=== PATIENT | female | born 1950 | race Two or more races ===

== ENCOUNTER 2023-01-15 16:43 | Inpatient (IN) | payer OTHER, SELFPAY ==
--- NOTE | ~2023-01-15 | XR_ITS ---
EXAMINATION: XR ABDOMEN KUB CLINICAL INDICATION: Rule out obstruction COMPARISON: None available. TECHNIQUE: AP portable view of the abdomen. FINDINGS: Exam is limited due to patient positioning. Nonobstructive bowel gas pattern. No free air. No suspicious calcifications. Degenerative changes of the lower lumbar spine. XR/XR KUB IMPRESSION: Nonobstructive bowel gas pattern.
--- NOTE | ~2023-01-15 | CT_ITS ---
EXAMINATION: CT HEAD WITHOUT CONTRAST CLINICAL INFORMATION: Fall, headache. COMPARISON: CT brain 11/25/2020. TECHNIQUE: Contiguous axial imaging was performed from the skull base to vertex without intravenous administration of contrast. This CT examination was performed using dose optimization techniques as appropriate, variously including the following: *Automated exposure control *Adjustment of mA and/or kV according to patient size (this includes techniques or standardized protocols for targeted exams where dose is matched to indication/reason for exam; i.e. extremities or head) *Use of iterative reconstruction technique DLP: 1162 mGy-cm FINDINGS: There is a moderate hypodensity left occipital lobe consistent with encephalomalacia. There is no acute infarction evolution. There is no acute intra-axial, extra-axial bleed, masses or midline shift. There is mild periventricular hypodensity in both cerebral hemispheres without mass effect. The lateral ventricles are symmetrical but enlarged. Bone windows reveal no calvarial abnormality. No scalp soft tissue abnormality. Bilateral paranasal sinuses and mastoid air cells are well-aerated. The optic globe, optic nerve and the bony orbits are normal. CT/CT head/brain wo IV con IMPRESSION: 1. No acute intracranial process seen. 2. 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 3. Mild cerebral volume loss with chronic small vessel ischemic changes in both cerebral hemispheres.
--- NOTE | ~2023-01-15 | XR_ITS ---
EXAMINATION: XR ABDOMEN KUB CLINICAL INDICATION: Quadrant bowel obstruction. COMPARISON: None available. TECHNIQUE: AP view of the abdomen and pelvis. FINDINGS: There is a large stool burden, suggesting possible constipation. No obstruction or ileus is seen. Gas and stool are identified to the level of the rectum. No free intraperitoneal air is seen. There are no abnormal soft tissue calcifications. There is no acute osseous abnormality. Multiple pelvic phleboliths are seen. There are incompletely characterized degenerative changes of the lower thoracic spine. XR/XR KUB IMPRESSION: There is a moderately large stool burden, suggesting possible constipation. No obstruction or ileus is seen. No free intraperitoneal air noted.
--- OUTSIDE RECORDS SUMMARY | 2023-01-15 16:46 | XMS_ITS | Continuity of Care Document ---
Author Name Unknown Organization [facility] Address [address] [place] [address]- Care Team Providers Care Wet Trimmer Name Role Phone Bety KNIGHT, Ameena Primary Care Physician ( [phone] Encounter [facility] Date(s): 12/24/21 - 01/23/[address] [id number] Allergies, Adverse Reactions, Alerts Substance Reaction Severity Status acetaminophen Active aspirin rash Active tetanus toxoid SWELLING Active Motrin Active Losartan Potassium 1 spitting christophe blood Active penicillin ITCHING, RASH Active Benadryl RASH, VOMITING Active Egg Allergy TONGUE SWELLS egg Unknown Active Latex SWELLING Active Nuts RASH Active 1spitting christophe blood Immunizations Given and Recorded Vaccine Date Status Refusal Reason pneumococcal 23-valent vaccine 09/19/16 Given pneumococcal 13-valent vaccine 1 02/22/16 Given influenza virus vaccine, inactivated 2 02/22/16 Gi camron Pneumococcal Poly (PPV23) (oldterm) 3 08/10/09 Giv en 1Result Comment: [02/22/2016] ORDERED BY AMEENA ALBERT MD 2Result Comment: [02/22/2016] ordered by Bharat Albert MD 3Admin Note: PT REFUSED VACCINE. hAS NEVER RECIEVED ANY OTHER VACCINE IN HER LIFE EXCEPT FOR A TETANUS FOR WHICH SHE IMMEDIATELY SWE Medications albuterol CFC free 90 mcg/inh inhalation aerosol 2, puffs, Inhalation, Every 6 hours, PRN, # 18 Gm, Refills 3, Tot. Refills 3, Maintenance, 11/14/2214:05:00 EDT, Aerosol, Route to Pharmacy Electronically, [id number]_[id number], [facility], 135,cm, 10/11/21 9:20:00 EDT, Height Start Date: 11/14/21 Status: Ordered atorvastatin 20 mg oral tablet 1 tablet = 20 mg, By Mouth, Daily, Patient will need [employer] pill dispenser, # 30 tablet, 11 Refills, Maintenance, 10/02/21 13:46:00 EDT, Tablet, [facility], Partial fill upon patient request if the prescription is for a schedule II opioid d... Start Date: 10/02/21 Status: Ordered Calcium 600 +D oral tablet 1 tablet, By Mouth, 2 times a day, calcium 600 and Vit D 400 units, # 90 tablet, 11 Refills, Maintenance, 10/11/21 10:03:00 EDT, [facility], Partial fill upon patient request if the prescription is for a schedule II opioid drug., 1 tablet By M... Start Date: 10/11/21 Status: Ordered clopidogrel 75 mg oral tablet 1, tablet, By Mouth, Daily, ASA allergy Patient will need [employer] pill dispenser, # 30 tablet, Refills 11, Tot. Refills 11, Maintenance, 10/02/21 13:46:00 EDT, Route to Pharmacy Electronically, [facility], 135, cm, 09/29/21 10:30:00 EDT, He... Start Date: 10/02/21 Status: Ordered Freestyle Lite Lancets See Instructions, # 100 each, Refills 11, Tot. Refills 11, Maintenance, use as directed for Type 2 Diabetes Mellitus, E11.9, Test BS tid., 10/02/21 13:47:00 EDT, Compound, 135, cm, 09/29/21 10:30:00 EDT, Height Start Date: 10/02/21 Stop Date: 09/27/22 Status: Ordered Freestyle Lite Monitor See Instructions, # 1 each, Refills 0, Tot. Refills 0, Maintenance, use as directed for Type 2 Diabetes Mellitus, E11.9, Test BS tid., 07/05/21 12:45:00 EST, Compound, 135, cm, 09/21/20 11:34:00 EDT,Height Start Date: 07/05/21 Stop Date: 08/04/21 Status: Ordered Freestyle Lite Test Strips See Instructions, # 100 each, Refills 11, Tot. Refills 11, Maintenance, use as directed for Type 2 Diabetes Mellitus, E11.9, Test BS tid., 10/02/21 13:47:00 EDT, Compound, 135, cm, 09/29/21 10:30:00 EDT, Height Start Date: 10/02/21 Stop Date: 09/27/22 Status: Ordered gabapentin 100 mg oral capsule 2, capsule, By Mouth, Daily in AM, # 60 capsule, Refills 0, Maintenance, 12/28/21 12:43:00 EDT, Route to Pharmacy Electronically, [facility], 135, cm, 10/11/21 9:20:00 EDT, Height Start Date: 12/28/21 Status: Ordered Lantus Solostar Pen 100 units/mL subcutaneous solution = 20 units, Subcutaneous Injection, Daily, daily in the morning Patient will need [employer] pill dispenser, # 10 mL, 11 Refills, Maintenance, 10/02/21 13:47:00 EDT, Solution, [facility], 135,cm, 09/29/21 10:30:00 EDT, Height Start Date: 10/02/21 Stop Date: 09/27/22 Status: Ordered lisinopril 20 mg oral tablet 1, tablet, By Mouth, Daily, Patient will need [employer] pill dispenser, # 28 tablet, Refills 11, Tot. Refills 11, Maintenance, 10/02/21 13:48:00 EDT, Route to Pharmacy Electronically, [facility], 135, cm, 09/29/21 10:30:00 EDT, Height Start Date: 10/02/21 Status: Ordered Pen [place], 30 G x 8 mm BD Ultra Fine II See Instructions, # 30 each, Refills 11, Tot. Refills 11, Maintenance, to use with lantus daily, 10/02/21 13:47:00 EDT, Compound, 135, cm, 09/29/21 10:30:00 EDT, Height Start Date: 10/02/21 Status: Ordered Problem List Condition Confirmation Course Effective Dates Status H ealth Status Informant Anxiety Confirmed Active Asthma 1 Confirmed Active Benign essential hematuria 2 Confirmed Active Cataract 3 Confirmed 09/11/09 Active Closed fracture of cervical vertebra without spinal cord injury 4 Confirmed Active Constipation Confirmed Active Osteoarthritis of right thumb Confirmed Active Depression Confirmed Active Diabetes mellitus Confirmed Active Neuropathy in diabetes Confirmed Active Mild diastolic dysfunction 5 Confirmed Active Ex-cigarette smoker Confirmed 08/08/09 Active Gastroesophageal reflux disease Confirmed Active Glaucoma 6 Confirmed Active History of myocardial infarction 7, 8 Confirmed Active Hyperlipidemia Confirmed Active Hypertension Confirmed Active Cognitive decline 9, 10 Confirmed Active Lipoma (clinical) 11 Confirmed Active Low back pain Confirmed Active Chronic migraine 12, 13, 14 Confirmed Active 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 Active Obese class I Confirmed Active Obesity(actual BMI 38.36 as of 05/14/2013) Confirmed Active Obstructive sleep apnea 16 Confirmed Active Old myocardial infarction 17 Confirmed Active Osteoarthritis Confirmed Active Osteoporosis Confirmed Active *[id number] Contact Center Engineer Opal Umana Confirmed Active Non-compliant patient Confirmed Active Respiratory failure requiring intubation 18 Confirmed 2004 Active Tubular adenoma 19 Confirmed 11/2007 Active Urinary incontinence Confirmed Active Venous embolism 20 Confirmed Active 1PFTs normal in 2010 2recurrent 3bilat 44417's 5-Echo at [facility] on 06-21-14, 6Dr. Ingis 7Read Cardiology note form 12-20-15 8-reported by patient. In 2011 had dobutamine stress test, which showed no EKG findings suggestive of ischemia. 9-Minimental today: 59-Mueg-aoqmhs today: 11Lt shoulder 12-admission in 2016 for Left sided weakness and associated headache, ruled out from CVA, likely Complex Migraine 13CT scan of the brain done on 05/14/13- unremarkable 14March 2013-the temporal artery biopsy was negative 15Evaluated by [facility]umatology ([facility] and [facility] Impression is fibromyalgia and OA 16-refuses CPAP 17reported by patient 18-2ary to asthma exacerbation. At [facility] 19Then again on . Had poor prep so it was recommended to repeat it in 1 year with 2 day of clears and 1 day of golytely. 2 medium sized adenomatous appearing polyps were removed Social History Social History Type Response Smoking Status Former smoker; Other : 2ppd x 5y; Stopped at age: 34; entered on: 09/11/17 Sex Patient Care team information Personnel Name: Ameena Albert MD Address: Address: [address] [place] [address]-
--- OUTSIDE RECORDS SUMMARY | 2023-01-15 16:47 | XMS_ITS | Continuity of Care Document ---
Author Name Unknown Organization [facility] Address [address] [place] [id number]- Care Team Providers Care Itinerant Teacher Assistant Name Role Phone Bety KNIGHT, Ameena Primary Care Physician Encounter [facility] Date(s): 05/29/22 - 06/28/22 [facility] [address]- [place] Allergies, Adverse Reactions, Alerts Substance Reaction Severity Status acetaminophen Active penicillin ITCHING, RASH Active aspirin rash Active tetanus toxoid SWELLING Active Motrin Active Benadryl RASH, VOMITING Active Latex SWELLING Active Nuts RASH Active Egg Allergy TONGUE SWELLS egg Unknown Active Losartan Potassium 1 spitting christophe blood Active 1spitting christophe blood Immunizations Given and [...] TETANUS FOR WHICH SHE IMMEDIATELY SWE Medications atorvastatin 20 mg oral tablet 1 tablet = 20 mg, By Mouth, Daily, Patient will need [employer] pill dispenser, # 30 tablet, 11 Refills, Maintenance, 10/02/21 13:46:00 EDT, Tablet, [facility], Partial fill upon patient request if the prescription is for a schedule II opioid d... Start Date: 10/02/21 Status: Ordered Calcium 600 +D oral tablet 1 tablet, By Mouth, 2 times a day, calcium 600 and Vit D 400 units, # 90 tablet, 11 Refills, Maintenance, 10/11/21 10:03:00 EDT, [facility], Partial fill upon patient request if the prescription is for a schedule II opioid drug., 1 tablet By M... Start Date: 10/11/21 Status: Ordered clopidogrel 75 mg oral tablet 1, tablet, By Mouth, Daily, ASA allergy Patient will need [employer] pill dispenser, # 30 tablet, Refills 11, Tot. Refills 11, Maintenance, 10/02/21 13:46:00 EDT, Route to Pharmacy Electronically, [facility], 135, cm, 09/29/21 10:30:00 EDT, He... [...] 2, capsule, By Mouth, Daily in AM, ^2R1., # 60 capsule, Refills 2, Maintenance, 05/09/22 18:59:00 EST, Route to Pharmacy Electronically, [facility], 135, cm, 10/11/21 9:20:00 EDT, Height Start Date: 05/09/22 Status: Ordered Lantus Solostar Pen 100 units/mL subcutaneous solution = 20 units, Subcutaneous Injection, Daily, daily in the morning Patient will need [employer] pill dispenser, # 10 mL, 11 Refills, Maintenance, 10/02/21 13:47:00 EDT, Solution, [facility], 135,cm, 09/29/21 10:30:00 EDT, Height Start Date: 10/02/21 Stop Date: 09/27/22 Status: Ordered lisinopril 20 mg oral tablet 1, tablet, By Mouth, Daily, Patient will need [employer] pill dispenser, # 28 tablet, Refills 11, Tot. Refills 11, Maintenance, 10/02/21 13:48:00 EDT, Route to Pharmacy Electronically, [facility], 135, cm, 09/29/21 10:30:00 EDT, Height Start Date: 10/02/21 Status: Ordered Pen [place], 30 G x 8 mm BD Ultra Fine II See Instructions, # 30 each, Refills 11, Tot. Refills 11, Maintenance, to use with lantus daily, 10/02/21 13:47:00 EDT, Compound, 135, cm, 09/29/21 10:30:00 EDT, Height Start Date: 10/02/21 Status: Ordered UNIFINE PENTIPS 31G X 8 MM MISC UNIFINE PENTIPS 31G X 8 MM MISC, See Instructions, # 30 each, 5 Refills, Maintenance, USE WITH LANTUS DAILY, 06/27/22 10:52:00 EST, 135, cm, 06/04/22 14:59:00 EST, Height, 55.9, kg, 06/04/22 15:07:00EST, Dry Weight Start Date: 06/27/22 Status: Ordered Ventolin HFA 108 mcg/inh inhalation aerosol with adapter 2 puffs, Inhalation, Every 6 hours, PRN NEEDED FOR WHEEZING SHORTNESS OF BREATH, # 18 Gm, 2 Refills, Maintenance, 05/09/22 18:39:00 EST, [facility], 135, cm, 10/11/21 9:20:00 EDT, Height Start Date: 05/09/22 Status: Ordered Problem List Condition Confirmation Course Effective Dates Status H ealth Status Informant Anxiety Confirmed Active Asthma 1 Confirmed Active Benign essential hematuria 2 Confirmed Active Cholelithiasis Confirmed Active Cataract 3 Confirmed 09/11/09 Active [...] Active Osteoarthritis Confirmed Active Osteoporosis Confirmed Active *[id number] Care Program Resident Opal Umana Confirmed Active Non-compliant patient Confirmed Active Respiratory failure requiring intubation 18 Confirmed 2004 Active Tubular adenoma 19 Confirmed 11/2007 Active Urinary incontinence Confirmed Active Venous embolism 20 Confirmed Active 1PFTs normal in 2010 2recurrent 3bilat 169[address]'s 5-Echo at [facility] on 06-21-14, 6Dr. Ingis 7Read Cardiology note form 12-20-15 8-reported by patient. In 2011 had dobutamine stress test, which showed no EKG findings suggestive of ischemia. 9-Minimental today: 18-Tjju-sxszax today: 11Lt shoulder 12-admission in 2017 for Left sided weakness and associated headache, ruled out from CVA, likely Complex Migraine 13CT scan of the brain done on 05/14/13- unremarkable 14March 2013-the temporal artery biopsy was negative 15Evaluated by Rheumatology ([facility] and [address]). Impression is fibromyalgia and OA 16-refuses CPAP 17reported by patient 18-2ary to asthma exacerbation. At [facility] 19Then again on . Had poor prep so it was recommended to repeat it in 1 year with 2 day of clears and 1 day of golytely. 2 medium sized adenomatous appearing polyps were removed Social History Social History Type Response Smoking Status Former smoker; Other : 2ppd x 5y; Stopped at age: 34; entered on: 09/11/17 Sex Patient Care team information Care Team Personnel Name: Gavi Arthur RN Position: [facility] PCO RN Member Role: Primary Care Nurse Name: Malgorzata Ugalde RN Position: [facility] SN RN Member Role: Primary Care Nurse Name: Tsering Casey RN Position: S RN Member Role: Primary Care Nurse Name: Ameena Albert MD Position: [facility] Primary Care Physician Member Role: PCP Address: Address: [address] [place] [address]- Name: Aliza Lemon RN Position: S RN Member Role: Primary Care Nurse Name: Tsering Johnson RN Position: S RN Member Role: Primary Care Nurse Care Team Related Persons Name: JCARLOS DOYLE Address: home [address] [facility] [address] [place] [address] Name: GRACE MADRIGAL Address: [place] [address] Name: BERENICE DELA CRUZ
--- OUTSIDE RECORDS SUMMARY | 2023-01-15 16:47 | XMS_ITS | Continuity of Care Document ---
Author Name Unknown Organization [facility] Address [address] [place] [address]- Care Team Providers Care Funeral Service Licensee Name Role Phone Bety KNIGHT, Ameena Primary Care Physician Encounter [facility] Date(s): 11/01/19 - 12/01/19 [facility] [address] [place] [address]- [place] Allergies, Adverse Reactions, Alerts Substance Reaction Severity [...] FOR WHICH SHE IMMEDIATELY SWE Medications albuterol 0.083% inhalation solution 3 mL = 2.5 mg, Inhalation, Every 6 hours, PRN Wheezing/Shortness of Breath, # 25 each, 6 Refills, Maintenance, 04/01/17 12:33:50, Solution Start Date: 04/01/17 Status: Ordered albuterol CFC free 90 mcg/inh inhalation aerosol 2, puffs, Inhalation, 4 times a day, PRN, Dx [id number], # 1 each, Refills 11, Tot. Refills 11, Maintenance, 08/06/19 12:26:00 EDT, Aerosol, Route to Pharmacy Electronically, [id number], [facility], 135, cm, 07/23/18... Start Date: 08/06/19 Status: Ordered ammonium lactate 12% topical cream 1 application, Topically, 2 times a day, apply and rub in well, # 385 Gm, 1 Refills, Maintenance, 05/07/18 11:58:20 EST, Cream, 1 application Topically 2 times a day,Instr:apply and rub in well Start Date: 05/07/18 Status: Ordered atorvastatin 40 mg oral tablet See Instructions, # 28 tablet, Refills 11 Tot. Refills 11, TAKE 1 TABLET BY MOUTH DAILY, [facility] Start Date: 02/23/19 Status: Ordered clopidogrel 75 mg oral tablet 1, tablet, By Mouth, Daily, # 28 tablet, Refills 5, Tot. Refills 0, Maintenance, 08/05/19 16:06:00 EDT, Route to Pharmacy Electronically, [facility], 135, cm, 07/23/18 11:47:00 EDT, Height, 84.3, kg, 07/23/18 11:47:00 EDT, Dry Weight Start Date: 08/05/19 Status: Ordered Compression Stockings See Instructions, # 1 pair, Refills 3, Tot. Refills 3, Maintenance, surgical, knee length 20-30 mm Hg. Dx: diastolic dysfunction, leg edema, 01/23/16 17:23:39, Compound Start Date: 01/23/16 Status: Ordered CPAP Equipment See Instructions, # 1 units, Maintenance, CPAP 6-18 cm H2O, with heated humidifier.Zzoma or Rematee.Dx; NIKHIL, 05/18/15 9:56:26, Compound Start Date: 05/18/15 Status: Ordered Diabetic shoes Diabetic shoes, See Instructions, # 1 pair, Refills 0, Tot. Refills 0, Maintenance, with 3 inserts.Dx: DM neuropathy, 02/14/16 12:19:46, Compound Start Date: 02/14/16 Status: Ordered Freestyle Lite Lancets See Instructions, # 100 each, Refills 11, Tot. Refills 11, Maintenance, use as directed for Type 2 Diabetes Mellitus, E11.9, Test BS tid., 06/10/19 13:26:00 EST, Compound, 135, cm, 07/23/18 11:47:00 EDT, Height, 84.3, kg, 07/23/18 11:47:00 EDT, Dry We... Start Date: 06/10/19 Stop Date: 06/04/20 Status: Ordered Freestyle Lite Monitor See Instructions, # 1 each, Refills 0, Tot. Refills 0, Maintenance, use as directed for Type 2 Diabetes Mellitus, E11.9, Test BS tid., 01/07/19 9:56:02 EDT, Compound Start Date: 01/07/19 Stop Date: 02/06/19 Status: Ordered Freestyle Lite Test Strips See Instructions, # 100 each, Refills 11, Tot. Refills 11, Maintenance, use as directed for Type 2 Diabetes Mellitus, E11.9, Test BS tid., 06/10/19 13:25:00 EST, Compound, 135, cm, 07/23/18 11:47:00 EDT, Height, 84.3, kg, 07/23/18 11:47:00 EDT, Dry We... Start Date: 06/10/19 Stop Date: 06/04/20 Status: Ordered gabapentin 800 mg oral tablet 1 tablet = 800 mg, By Mouth, 3 times a day, # 90 tablet, 11 Refills, Maintenance, 11/27/18 11:22:04EDT, Tablet Start Date: 11/27/18 Stop Date: 11/22/19 Status: Ordered hydrochlorothiazide 25 mg oral tablet 1, tablet, By Mouth, Daily, # 28 tablet, Refills 5, Tot. Refills 0, Maintenance, 08/05/19 16:06:00 EDT, Route to Pharmacy Electronically, [facility], 135, cm, 07/23/18 11:47:00 EDT, Height, 84.3, kg, 07/23/18 11:47:00 EDT, Dry Weight Start Date: 08/05/19 Status: Ordered Lantus Solostar Pen 100 units/mL subcutaneous solution = 60 units, Subcutaneous Injection, Daily, daily in the morning, # 10 mL, 6 Refills, Maintenance, 06/10/19 16:09:00 EST, Solution, [facility], 135, cm, 07/23/18 11:47:00 EDT, Height, 84.3, kg, 07/23/18 11:47:00 EDT, Dry Weight Start Date: 06/10/19 Stop Date: 01/06/20 Status: Ordered lisinopril 20 mg oral tablet 1, tablet, By Mouth, Daily, # 28 tablet, Refills 5, Tot. Refills 0, Maintenance, 08/05/19 16:06:00 EDT, Route to Pharmacy Electronically, [facility], 135, cm, 07/23/18 11:47:00 EDT, Height, 84.3, kg, 07/23/18 11:47:00 EDT, Dry Weight Start Date: 08/05/19 Status: Ordered montelukast 10 mg oral tablet 10 mg, 1, tablet, By Mouth, Daily in PM, due for follow up. please call office to schedule. [phone], # 30 tablet, Refills 2, Tot. Refills 2, Maintenance, 11/01/19 9:45:00 EDT, Route to Pharmacy Electronically, [facility], 135, cm, ... Start Date: 11/01/19 Stop Date: 01/30/20 Status: Ordered omeprazole 20 mg oral enteric coated capsule 1 capsule, By Mouth, 2 times a day, # 56 capsule, 5 Refills, Maintenance, 08/05/19 16:06:00 EDT, [facility], 135, cm, 07/23/18 11:47:00 EDT, Height, 84.3, kg, 07/23/18 11:47:00 EDT, DryWeight Start Date: 08/05/19 Status: Ordered Pen [place], 30 G x 8 mm BD Ultra Fine II See Instructions, # 120 units, Refills 11, Tot. Refills 11, Maintenance, to use with lantus daily and with lispro sliding scale fromtid with meals, E11.9, 12/05/17 8:46:50 EDT, Compound Start Date: 12/05/17 Status: Ordered Trulicity Pen 1.5 mg/0.5 mL subcutaneous solution See Instructions, INJECT 0.5ML SUBCUTANEOUSLY EVERY WEEKLY. ROTATE INJECTION SITES, # 2 mL, 6 Refills, Soft Stop, 08/06/19 12:26:00 EDT, [facility], 135, cm, 07/23/18 11:47:00 EDT, Height, 84.3, kg, 07/23/18 11:47:00 EDT, Dry Weight Start Date: 08/06/19 Status: Ordered Vitamin D3 2000 intl units oral tablet 1 tablet = 2,000 International_Units, By Mouth, Daily, follow up needed please call office to schedule., # 30 tablet, 0 Refills, Maintenance, 11/25/19 12:30:00 EDT, [facility], 135, cm, 07/23/18 11:47:00 EDT, Height, 84.3, kg, 07/23/18 11... Start Date: 11/25/19 Stop Date: 12/25/19 Status: Ordered Wixela Inhub 500 mcg-50 mcg inhalation powder See Instructions, TAKE 1 PUFF BY MOUTH 2 TIMES A DAY, # 60 Unknown, 6 Refills, Soft Stop, 08/06/19 12:26:00 EDT, [facility], TAKE 1 PUFF BY MOUTH 2 TIMES A DAY, 135, cm, 07/23/18 11:47:00 EDT, Height, 84.3, kg, 07/23/18 11:47:00 EDT, Dry W... Start Date: 08/06/19 Status: Ordered Problem List Condition Effective Dates Status Health Status Inform ant Anxiety(Confirmed) Active Asthma(Confirmed) 1 Active Benign essential hematuria(C onfirmed) 2 Active Cataract(Confirmed) 3 09/11/09 Active Closed fracture of cervical vertebra without spinal cord injury(Confirmed) 4 Active Constipation(Confirmed) Active Osteoarthritis of right thumb(Confirmed) Active Depression(Confirmed) Active Diabetes mellitus(Confirmed) Active Neuropathy in diabetes(Confirmed) Active Mild diastolic dysfunction(C onfirmed) 5 Active Ex-cigarette smoker(Confirmed) 08/08/09 Active Gastroesophageal reflux disease(Confirmed) Active Glaucoma(Confirmed) 6 Active History of myocardial infarction(Confirmed) 7, 8 Active Hyperlipidemia(Confirmed) Active Hypertension(Confirmed) Active Lipoma (clinical)(Confirmed) 9 Active Low back pain(Confirmed) Active Chronic migraine(Confirmed) 10, 11 Active Myofacial pain dysfunction syndrome(Confirmed) 12 Active Obesity(actual BMI 38.36 as of 05/14/2013)(Confirmed) Active Obstructive sleep apnea(Confirmed) 13 Active Old myocardial infarction(Co nfirmed) 14 Active Osteoarthritis(Confirmed) Active Osteoporosis(Confirmed) Active *[id number]-Care Partn er Celia Sánchez(Confirmed) Active Non-compliant patient(Confirmed) Active Respiratory failure requirin g intubation(Confirmed) 2004 Active Tubular adenoma(Confirmed) 16 11/2007 Active Urinary incontinence(Confirmed) Active Venous embolism(Confirmed) 17 Active 1PFTs normal in 2010 2recurrent 3bilat 71485's 5-Echo at [facility] on 06-21-14, 6Dr. Ingis 7Read Cardiology note form 12-20-15 8-reported by patient. In 2011 had dobutamine stress test, which showed no EKG findings suggestive of ischemia. 9Lt shoulder 10CT scan of the brain done on 05/14/13- unremarkable 2013-the temporal artery biopsy was negative 12Evaluated by Rheumatology ([facility]). Impression is fibromyalgia and OA 13-refuses CPAP 14reported by patient 15-2ary to asthma exacerbation. At [facility] 16Then again on . Had poor prep so it was recommended to repeat it in 1 year with 2 day of clears and 1 day of golytely. 2 medium sized adenomatous appearing polyps were removed [id number] Social History Social History Type Response Smoking Status Former smoker; Other : 2ppd x 5y; Stopped at age: 34; entered on: 09/11/17 Sex
--- OUTSIDE RECORDS SUMMARY | 2023-01-15 16:47 | XMS_ITS | Continuity of Care Document ---
Author Name Unknown Organization [facility] Address [address] [place] [address]- Care Team Providers Care Conservation Science Teacher Name Role Phone Bety KNIGHT, Bakari Primary Care Physician Encounter [facility] [place] Date(s): 10/18/22 - 10/25/[address] [address]- Attending Physician: Ronel Rosado NP Allergies, Adverse Reactions, Alerts Substance Reaction Severity [...] Giv en 1Result Comment: [02/22/2016] ORDERED BY BAKARI ALBERT MD 2Result Comment: [02/22/2016] ordered by Bharat Albert MD 3Admin Note: PT REFUSED VACCINE. hAS NEVER RECIEVED ANY OTHER VACCINE IN HER LIFE EXCEPT FOR A TETANUS FOR WHICH SHE IMMEDIATELY SWE Medications atorvastatin 20 mg oral tablet 1 tablet = 20 mg, By Mouth, Daily, Patient will need [facility] pill dispenser, # 30 tablet, 5 Refills, Maintenance, 08/19/22 14:18:00 EDT, Tablet, [facility], Partial fill upon patient request if the prescription is for a schedule II opioid drMichelle Start Date: 08/19/22 Status: Ordered Calcium 600 +D oral tablet 1 tablet, By Mouth, 2 times a day, calcium 600 and Vit D 400 units, # 90 tablet, 11 Refills, Maintenance, 10/11/21 10:03:00 EDT, [facility], Partial fill upon patient request if the prescription is for a schedule II opioid drug., 1 tablet By M... Start Date: 10/11/21 Status: Ordered clopidogrel 75 mg oral tablet 1, tablet, By Mouth, Daily, R1., # 30 tablet, Refills 11, Maintenance, 09/12/22 14:29:00 EDT, [facility] Electronically, [facility], 135, cm, 06/04/22 14:59:00 EST, Height, 55.9, kg, 06/04/22 15:07:00 EST, Dry Weight Start Date: 09/12/22 Status: Ordered FREESTYLE LANCETS MISC FREESTYLE LANCETS MISC, See Instructions, # 100 each, 11 Refills, Maintenance, USE DIRECTED THREE TIMES DAILY TO TEST BLOOD SUGAR, 09/12/22 12:14:00 EDT, 135, cm, 06/04/22 14:59:00 EST, Height, 55.9, kg, 06/04/22 15:07:00 EST, Dry Weight Start Date: 09/12/22 Status: Ordered Freestyle Lite Lancets See Instructions, [...] Date: 07/05/21 Stop Date: 08/04/21 Status: Ordered FREESTYLE LITE TEST STRIP 100CT FREESTYLE LITE TEST STRIP 100CT, See Instructions, # 100 Unknown, 11 Refills, Maintenance, USE DIRECTED THREE TIMES DAILY TO TEST BLOOD SUGAR, 09/12/22 12:13:00 EDT, 135, cm, 06/04/22 14:59:00 EST, Height, 55.9, kg, 06/04/22 15:07:00 EST, Dry Weight Start Date: 09/12/22 Status: Ordered Freestyle Lite Test Strips See [...] ^2R1., # 60 capsule, Refills 2, Maintenance, 07/19/22 17:31:00 EDT, Route to Pharmacy Electronically, [facility], 135, cm, 06/04/22 14:59:00 EST, Height, 55.9, kg, 06/04/22 15:07:00 EST, Dry Weight Start Date: 07/19/22 Status: Ordered Lantus Solostar Pen 100 units/mL subcutaneous solution = 20 units, Subcutaneous Injection, Daily, daily in the morning Patient will need [facility] pill dispenser, # 10 mL, 11 Refills, Maintenance, 10/02/21 13:47:00 EDT, Solution, [facility], 135,cm, 09/29/21 10:30:00 EDT, Height Start Date: 10/02/21 Stop Date: 09/27/22 Status: Ordered lisinopril 20 mg oral tablet 1, tablet, By Mouth, Daily, Patient will need [facility] pill dispenser, # 28 tablet, Refills 11, Tot. Refills 11, Maintenance, 10/02/21 13:48:00 EDT, Route to Pharmacy Electronically, [facility], 135, cm, 09/29/21 10:30:00 EDT, Height Start Date: 10/02/21 Status: Ordered Pen [place], 30 G x 8 mm BD Ultra Fine II See Instructions, # 30 each, Refills 11, Tot. Refills 11, Maintenance, to use with lantus daily, 10/02/21 13:47:00 EDT, Compound, 135, cm, 09/29/21 10:30:00 EDT, Height Start Date: 10/02/21 Status: Ordered sertraline 25 mg oral tablet See Instructions, 25 mg daily x 2 weeks, then 2 tablets (50 mg )daily. Dose might be changed in thefuture, # 180 tablet, 0 Refills, Maintenance, 08/16/22 11:08:00 EDT, Tablet, [facility], Partial fill upon patient request if the prescription... Start Date: 08/16/22 Status: Ordered UNIFINE PENTIPS 31G X 8 [...] hours, PRN NEEDED FOR WHEEZING SHORTNESS OF BREATH ^BULK, # 18 Gm, 2 Refills, Maintenance, 10/21/22 16:02:00 EDT, [facility], 135, cm, 06/04/22 14:59:00 EST, Height, 55.9, kg, 06/04/22 15:07:00 EST, Dry Weight Start Date: 10/21/22 Status: Ordered Problem List Condition Confirmation Course [...] Active Osteoarthritis Confirmed Active Osteoporosis Confirmed Active [id number] Eyeglass Fitter Kayce Byrne Confirmed Active Non-compliant patient Confirmed Active Respiratory failure requiring intubation 18 Confirmed 2004 Active Tubular adenoma 19 Confirmed 11/2007 Active Urinary incontinence Confirmed Active Venous embolism 20 Confirmed Active 1PFTs normal in 2010 2recurrent 3bilat [address]'s 5-Echo at [facility] on 06-21-14, 6Dr. Ingis 7Read Cardiology note form 12-20-15 8-reported by patient. In 2011 had dobutamine stress test, which showed no EKG findings suggestive of ischemia. 9-Minimental today: 37-Lykb-vpgfdw today: 11Lt shoulder 12-admission in 2017 for Left sided weakness and associated headache, ruled out from CVA, likely Complex Migraine 13CT scan of the brain done on 05/14/13- unremarkable 14March 2013-the temporal artery biopsy was negative 15Evaluated by Rheumatology ([facility] and [facility] Impression is fibromyalgia and OA 16-refuses CPAP 17reported by patient 18-2ary to asthma exacerbation. At [facility] 19Then again on . Had poor [...] Team Personnel Name: Gavi Arthur RN Position: [facility] AMB Nurse Member Role: Primary Care Nurse Name: Malgorzata Ugalde RN Position: [facility] RN Member Role: Primary Care Nurse Name: Tsering Casey RN Position: [facility] RN Member Role: Primary Care Nurse Name: Bakari Albert MD Position: [facility] Physician - Primary Care Member Role: PCP Address: Address: [address] [place] [id number]- [place] Name: Aliza Lemon RN Position: S RN Member Role: Primary Care Nurse Name: Tsering Johnson RN Position: [facility] RN Member Role: Primary Care Nurse Care Team Related Persons Name: DOYLE, JCARLOS Address: home [address] [place] [address] Name: GRACE MADRIGAL Address: [place] [address] Name: BERENICE DELA CRUZ GAS COMBUSTION ENGINEER
--- OUTSIDE RECORDS SUMMARY | 2023-01-15 16:47 | XMS_ITS | Continuity of Care Document ---
Author Name Unknown Organization [facility] Address [address] [place] [address]- Care Team Providers Care Maths Tutor Name Role Phone Bety KNIGHT, Ameena Primary Care Physician [place] [facility] [place] Date(s): 10/22/22 - 11/21/22 [facility] [address]- [place] Allergies, Adverse Reactions, Alerts Substance Reaction [...] prescription is for a schedule II opioid Start Date: 08/19/22 Status: Ordered Calcium 600 +D oral tablet 1 tablet, By Mouth, 2 times a day, calcium 600 and Vit D 400 units, # 90 tablet, 1 Refills, Maintenance, 11/05/22 13:52:00 EDT, [facility], Partial fill upon patient request if the prescription is for a schedule II opioid drug., 1 tablet By Mo... Start Date: 11/05/22 Status: Ordered clopidogrel 75 mg oral tablet 1, tablet, By Mouth, Daily, R1., # 30 tablet, Refills 11, Maintenance, 09/12/22 14:29:00 EDT, [facility] Electronically, [facility], 135, cm, 06/04/22 14:59:00 EST, Height, [...] 07/19/22 17:31:00 EDT, Route to Pharmacy Electronically, [facility], 135, cm, 06/04/22 14:59:00 EST, Height, 55.9, kg, 06/04/22 15:07:00 EST, Dry Weight Start Date: 07/19/22 Status: Ordered Lantus Solostar Pen 100 units/mL subcutaneous solution = 20 units, Subcutaneous Injection, Daily, daily in the morning Patient will need [facility] pill dispenser, # 10 mL, 2 Refills, Maintenance, 11/05/22 13:51:00 EDT, Solution, [facility], 135, cm, 06/04/22 14:59:00 EST, Height, 55.9, kg, ... Start Date: 11/05/22 Stop Date: 02/03/23 Status: Ordered lisinopril 20 mg oral tablet 1, tablet, By Mouth, Daily, Patient will need [facility] pill dispenser, # 28 tablet, Refills 11, Tot. Refills 11, Maintenance, 10/02/21 13:48:00 EDT, Route to Pharmacy Electronically, [facility], 135, cm, 09/29/21 10:30:00 EDT, Height Start Date: 10/02/21 Status: Ordered Pen [place], 30 G x 8 mm BD Ultra [...] Active Osteoarthritis Confirmed Active Osteoporosis Confirmed Active [id number] Java Lead Engineer Kayce Byrne Confirmed Active Non-compliant patient Confirmed Active Respiratory failure requiring intubation 18 Confirmed 2004 Active Tubular adenoma 19 Confirmed 11/2007 Active Urinary incontinence Confirmed Active Venous embolism 20 Confirmed Active 1PFTs normal in 2010 2recurrent 3bilat [address]'s 5-Echo at [facility] on 06-21-14, 6Dr. Ingis 7Read Cardiology note form 12-20-15 8-reported by patient. In 2011 had dobutamine stress test, which showed no EKG findings suggestive of ischemia. 9-Minimental today: 21-Jsdd-mlboum today: 11Lt shoulder 12-admission in 2017 for Left sided weakness and associated headache, ruled out from CVA, likely Complex Migraine 13CT scan of the brain done on 05/14/13- unremarkable 14March 2013-the temporal artery biopsy was negative 15Evaluated by Rheumatology ([facility] and [facility]). Impression is fibromyalgia and OA 16-refuses CPAP 17reported by patient 18-2ary to asthma exacerbation. At [facility] 19Then again on . Had poor [...] Team Personnel Name: Gavi Arthur RN Position: [facility] AMB Nurse Member Role: Primary Care Nurse Name: Malgorzata Ugalde RN Position: [facility] RN Member Role: Primary Care Nurse Name: Tsering Casey RN Position: [facility] RN Member Role: Primary Care Nurse Name: Ameena Albert MD Position: [facility] Physician - Primary Care Member Role: PCP Address: Address: [address] [place] [address]- [place] Name: Aliza Lemon RN Position: S RN Member Role: Primary Care Nurse Name: Tsering Johnson RN Position: S RN Member Role: Primary Care Nurse Care Team Related Persons Name: DOYLEJCARLOS Kramer Address: home [address] [place] [address] Name: GRACE MADRIGAL Address: [place] [address] Name: BERENICE DELA CRUZ POWDERED SUGAR PULVERIZER OPERATOR
--- OUTSIDE RECORDS SUMMARY | 2023-01-15 16:47 | XMS_ITS | Continuity of Care Document ---
Author Name Unknown Organization [facility] Address Unknown Care Team Providers Care Cinder Dump Crane Operator Name Role Phone Bety KNIGHT, Ameena Primary Care Physician [place] [facility] [place] 09[place]07[place]21 - 10/07/21 [facility] Allergies, Adverse Reactions, Alerts Substance Reaction Severity [...] mg, By Mouth, Daily, Patient will need [facility] pill dispenser, # 30 tablet, 11 Refills, Maintenance, 10/02/21 13:46:00 EDT, Tablet, [facility], Partial fill upon patient request if the prescription is for a schedule II opioid d... Start Date: 10/02/21 Status: Ordered Calcium 600 +D oral tablet 1 tablet, By Mouth, 3 times a day, calcium 600 and Vit D 400 units, # 90 tablet, 11 Refills, Maintenance, 10/02/21 13:33:00 EDT, [facility], Partial fill upon patient request if the prescription is for a schedule II opioid drug., 1 tablet By M... Start Date: 10/02/21 Status: Ordered clopidogrel 75 mg oral tablet 1, tablet, By Mouth, Daily, ASA allergy Patient will need [facility] pill dispenser, # 30 tablet, Refills 11, Tot. Refills 11, Maintenance, 10/02/21 13:46:00 EDT, Route to Pharmacy Electronically, [facility], 135, cm, 09/29/21 10:30:00 EDT, He... [...] Status: Ordered gabapentin 100 mg oral capsule 100 mg, 1, capsule, By Mouth, Daily at bedtime, # 30 capsule, Refills 0, Tot. Refills 0, Acute 10/29/21 11:30:00 EDT, 09/29/21 11:07:00 EDT, Route to Pharmacy Electronically, [id number], Partial fill upon patient request if the prescription is... Start Date: 09/29/21 Stop Date: 10/29/21 Status: Ordered Lantus Solostar Pen 100 units/mL subcutaneous solution = 20 units, Subcutaneous Injection, Daily, daily in the morning Patient will need [facility] pill dispenser, # 10 mL, 11 Refills, Maintenance, 10/02/21 13:47:00 EDT, Solution, [facility], 135,cm, 09/29/21 10:30:00 EDT, Height Start Date: 10/02/21 Stop Date: 09/27/22 Status: Ordered lisinopril 20 mg oral tablet 1, tablet, By Mouth, Daily, Patient will need [facility] pill dispenser, # 28 tablet, Refills 11, Tot. Refills 11, Maintenance, 10/02/21 13:48:00 EDT, Route to Pharmacy Electronically, [facility], 135, cm, 09/29/21 10:30:00 EDT, Height Start Date: 10/02/21 Status: Ordered Pen [place], 30 G x 8 mm BD Ultra Fine II See Instructions, # 30 each, Refills 11, Tot. Refills 11, Maintenance, to use with lantus daily, 10/02/21 13:47:00 EDT, Compound, 135, cm, 09/29/21 10:30:00 EDT, Height Start Date: 10/02/21 Status: Ordered Problem List Condition Effective Dates [...] 7, 8 Active Hyperlipidemia(Confirmed) Active Hypertension(Confirmed) Active Cognitive decline(Confirmed) 9 Active Lipoma (clinical)(Confirmed) 10 Active Low back pain(Confirmed) Active Chronic migraine(Confirmed) 11, 12 Active Myofacial pain dysfunction syndrome(Confirmed) 13 Active Obese class I(Confirmed) Active Obesity(actual BMI 38.36 as of 05/14/2013)(Confirmed) Active Obstructive sleep apnea(Confirmed) 14 Active Old myocardial infarction(Co nfirmed) 15 Active Osteoarthritis(Confirmed) Active Osteoporosis(Confirmed) Active *[id number] Care Partn er Opaldora Lópeze(Confirmed) Active Non-compliant patient(Confirmed) Active Respiratory failure requirin g intubation(Confirmed) 16 2004 Active Tubular adenoma(Confirmed) 17 11/2007 Active Urinary incontinence(Confirmed) Active Venous embolism(Confirmed) 18 Active 1PFTs normal in 2010 2recurrent 3bilat [address]'s 5-Echo at [facility] on 06-21-14, 6Dr. Ingis 7Read Cardiology note form 12-19- 8-reported by patient. In 2011 had dobutamine stress test, which showed no EKG findings suggestive of ischemia. 9-Brhq-pkgvdb today: 10Lt shoulder 11CT scan of the brain done on 05/14/13- unremarkable 12March 2013-the temporal artery biopsy was negative 13Evaluated by Rheumatology ([facility] and [facility]). Impression is fibromyalgia and OA 14-refuses CPAP 15reported by patient 16-2ary to asthma exacerbation. At [facility] 17Then again on . Had poor prep so it was recommended to repeat it in 1 year with 2 day of clears and 1 day of golytely. 2 medium sized adenomatous appearing polyps were removed [id number] Social History Social History Type Response Smoking Status Former smoker; Other : 2ppd x 5y; Stopped at age: 34; entered on: 09/11/17 Sex
--- OUTSIDE RECORDS SUMMARY | 2023-01-15 16:47 | XMS_ITS | Continuity of Care Document ---
Author Name Unknown Organization [facility] Address [address] [place] [address]- Care Team Providers Care Quality Lead Name Role Phone Bety KNIGHT, Ameena Primary Care Physician ( [phone] [facility] [place] Date(s): 01/05/20 - 02/04/20 [facility] [place] [address] [place] [address]- [place] Allergies, Adverse Reactions, Alerts Substance Reaction [...] 12:26:00 EDT, Aerosol, Route to Pharmacy Electronically, [id number], [facility], 135, cm, 07/23/18... Start [...] By Mouth, Daily, # 28 tablet, Refills 0, Tot. Refills 0, Maintenance, 01/20/20 16:16:00 EDT, Route to Pharmacy Electronically, [facility], 135, cm, 07/23/18 11:47:00 EDT, Height, 84.3, kg, 07/23/18 11:47:00 EDT, Dry Weight Start Date: 01/20/20 Status: Ordered Compression Stockings See Instructions, # [...] Ordered gabapentin 800 mg oral tablet 1 tablet, By Mouth, 3 times a day, # 84 tablet, 0 Refills, Maintenance, 01/20/20 16:16:00 EDT, [facility], 135, cm, 07/23/18 11:47:00 EDT, Height, 84.3, kg, 07/23/18 11:47:00 EDT, Dry Weight Start Date: 01/20/20 Status: Ordered hydrochlorothiazide 25 mg oral tablet 1, tablet, By Mouth, Daily, # 28 tablet, Refills 0, Tot. Refills 0, Maintenance, 01/20/20 16:16:00 EDT, Route to Pharmacy Electronically, [facility], 135, cm, 07/23/18 11:47:00 EDT, Height, 84.3, kg, 07/23/18 11:47:00 EDT, Dry Weight Start Date: 01/20/20 Status: Ordered Lantus Solostar Pen 100 units/mL [...] By Mouth, Daily, # 28 tablet, Refills 0, Tot. Refills 0, Maintenance, 01/20/20 16:16:00 EDT, Route to Pharmacy Electronically, [facility], 135, cm, 07/23/18 11:47:00 EDT, Height, 84.3, kg, 07/23/18 11:47:00 EDT, Dry Weight Start Date: 01/20/20 Status: Ordered montelukast 10 mg oral tablet 1, tablet, By Mouth, Daily in PM, # 28 tablet, Refills 0, Tot. Refills 0, Maintenance, 01/20/20 16:16:00 EDT, Route to Pharmacy Electronically, [facility], 135, cm, 07/23/18 11:47:00 EDT, Height, 84.3, kg, 07/23/18 11:47:00 EDT, Dry Weight Start Date: 01/20/20 Status: Ordered omeprazole 20 mg oral enteric coated capsule 1 capsule, By Mouth, 2 times a day, # 56 capsule, 0 Refills, Maintenance, 01/20/20 16:16:00 EDT, [facility], 135, cm, 07/23/18 11:47:00 EDT, Height, 84.3, kg, 07/23/18 11:47:00 EDT, DryWeight Start Date: 01/20/20 Status: Ordered Pen [place], 30 G x 8 mm BD Ultra Fine II See Instructions, # 120 units, Refills 11, Tot. Refills 11, Maintenance, to use with lantus daily and with lispro sliding scale fromtid with meals, E11.9, 12/05/17 8:46:50 EDT, Compound Start Date: 12/05/17 Status: Ordered Trulicity Pen 1.5 mg/0.5 mL subcutaneous solution See Instructions, INJECT 0.5ML SUBCUTANEOUSLY EVERY WEEKLY. ROTATE INJECTION SITES, # 2 mL, 3 Refills, Soft Stop, 12/24/19 12:07:00 EDT, [facility], 135, cm, 07/23/18 11:47:00 EDT, Height, 84.3, kg, 07/23/18 11:47:00 EDT, Dry Weight Start Date: 12/24/19 Status: Ordered Vitamin D3 2000 intl units oral tablet 1 tablet, By Mouth, Daily, # 28 tablet, 0 Refills, Maintenance, 01/20/20 16:16:00 EDT, [facility], 135, cm, 07/23/18 11:47:00 EDT, Height, 84.3, kg, 07/23/18 11:47:00 EDT, Dry Weight Start Date: 01/20/20 Status: Ordered Wixela Inhub 500 mcg-50 mcg inhalation powder 1 puffs, Inhalation, 2 times a day, # 60 Unknown, 0 Refills, Maintenance, 01/20/20 16:16:00 EDT, [facility], 0, TAKE 1 PUFF BY MOUTH 2 TIMES A DAY, 135, cm, 07/23/18 11:47:00 EDT, Height, 84.3, kg, 07/23/18 11:47:00 EDT, Dry Weight Start Date: 01/20/20 Status: Ordered Problem List Condition Effective Dates [...] nfirmed) 14 Active Osteoarthritis(Confirmed) Active Osteoporosis(Confirmed) Active *[id number] Care Partn er Sandra Loredo(Confirmed) Active Non-compliant patient(Confirmed) Active Respiratory failure requirin g intubation(Confirmed) 2004 Active Tubular adenoma(Confirmed) 16 11/2007 Active Urinary incontinence(Confirmed) Active Venous embolism(Confirmed) 17 Active 1PFTs normal in 2010 2recurrent 3bilat [address]'s 5-Echo at [facility] on 06-21-14, 6Dr. Ingis 7Read Cardiology note form 12-20-15 8-reported by patient. In 2011 had dobutamine stress test, which showed no EKG findings suggestive of ischemia. 9Lt shoulder 10CT scan of the brain done on 05/14/13- unremarkable 2013-the temporal artery biopsy was negative 12Evaluated by Rheumatology ([facility] and [facility] Impression is fibromyalgia and OA 13-refuses CPAP 14reported by patient 15-2ary to asthma exacerbation. At [facility] 16Then again on . Had poor prep so it was recommended to repeat it in 1 year with 2 day of clears and 1 day of golytely. 2 medium sized adenomatous appearing polyps were removed [id number] Social History Social History Type Response Smoking Status Former smoker; Other : 2ppd x 5y; Stopped at age: 34; entered on: 09/11/17 Sex
--- OUTSIDE RECORDS SUMMARY | 2023-01-15 16:47 | XMS_ITS | Continuity of Care Document ---
Author Name Unknown Organization [facility] Address Unknown Care Team Providers Care Scientific Technical Writer Name Role Phone Bety KNIGHT, Ameena Primary Care Physician Encounter [facility] [place] Date(s): 07/11/21 - 08/10/21 [facility] Allergies, Adverse Reactions, Alerts Substance Reaction [...] tablet = 20 mg, By Mouth, Daily, # 30 tablet, 11 Refills, Maintenance, 07/05/21 12:45:00 EST, Tablet, [id number], Partial fill upon patient request if the prescription is for a schedule II opioid drug., 135, cm, 09/21/20 11:34:00 EDT, Height Start Date: 07/05/21 Status: Ordered clopidogrel 75 mg oral tablet 1, tablet, By Mouth, Daily, ASA allergy, # 30 tablet, Refills 11, Tot. Refills 11, Maintenance, 07/05/21 12:44:00 EST, Route to Pharmacy Electronically, [facility]/pharmacy #[id number], 135, cm, 09/21/20 11:34:00EDT, Height Start Date: 07/05/21 Status: Ordered Freestyle Lite Lancets See Instructions, # 100 each, Refills 11, Tot. Refills 11, Maintenance, use as directed for Type 2 Diabetes Mellitus, E11.9, Test BS tid., 07/05/21 12:45:00 EST, Compound, 135, cm, 09/21/20 11:34:00 EDT, Height Start Date: 07/05/21 Stop Date: 06/30/22 Status: Ordered Freestyle Lite Monitor See Instructions, [...] 12:45:00 EST, Compound, 135, cm, 09/21/20 11:34:00 EDT, Height Start Date: 07/05/21 Stop Date: 06/30/22 Status: Ordered Lantus Solostar Pen 100 units/mL subcutaneous solution = 20 units, Subcutaneous Injection, Daily, daily in the morning, # 10 mL, 11 Refills, Maintenance, 07/05/21 12:45:00 EST, Solution, [facility]/pharmacy #[id number], 135, cm, 09/21/20 11:34:00 EDT, Height Start Date: 07/05/21 Stop Date: 06/30/22 Status: Ordered lisinopril 20 mg oral tablet 1, tablet, By Mouth, Daily, # 28 tablet, Refills 11, Tot. Refills 11, Maintenance, 07/05/21 12:45:00 EST, Route to Pharmacy Electronically, [facility]/pharmacy #[id number], 135, cm, 09/21/20 11:34:00 EDT, Height Start Date: 07/05/21 Status: Ordered Pen [place], 30 G x 8 mm BD Ultra Fine II See Instructions, # 30 each, Refills 11, Tot. Refills 11, Maintenance, to use with lantus daily, 07/05/21 12:45:00 EST, Compound, 135, cm, 09/21/20 11:34:00 EDT, Height Start Date: 07/05/21 Status: Ordered Problem List Condition Effective Dates [...] Active Myofacial pain dysfunction syndrome(Confirmed) 13 Active Obesity(actual BMI 38.36 as of 05/14/2013)(Confirmed) Active Obstructive sleep apnea(Confirmed) 14 Active Old myocardial infarction(Co nfirmed) 15 Active Osteoarthritis(Confirmed) Active Osteoporosis(Confirmed) Active *[id number] Care Partn er Opal Umana(Confirmed) Active Non-compliant patient(Confirmed) Active Respiratory failure requirin g intubation(Confirmed) 16 2004 Active Tubular adenoma(Confirmed) 17 11/2007 Active Urinary incontinence(Confirmed) Active Venous embolism(Confirmed) 18 Active 1PFTs normal in 2010 2recurrent 3bilat 84820's 5-Echo at [facility] on 06-21-14, 6Dr. Ingis 7Read Cardiology note form 12-20-15 8-reported by patient. In 2011 had dobutamine stress test, which showed no EKG findings suggestive of ischemia. 6-Nont-xiaqtd today: 10Lt shoulder 11CT scan of the brain done on 05/14/13- unremarkable 12Junch 2013-the temporal artery biopsy was negative 13Evaluated by Rheumatology ([facility] and [facility] Impression is fibromyalgia and OA 14-refuses CPAP 15reported by patient 16-2ary to asthma exacerbation. At [facility] 17Then again on . Had poor prep so it was recommended to repeat it in 1 year with 2 day of clears and 1 day of golytely. 2 medium sized adenomatous appearing polyps were removed [id number] Social History Social History Type Response Smoking Status Former smoker; Other : 2ppd x 5y; Stopped at age: 34; entered on: 09/11/17 Sex
--- OUTSIDE RECORDS SUMMARY | 2023-01-15 16:47 | XMS_ITS | Continuity of Care Document ---
Author Name Unknown Organization [facility] Address Unknown Care Team Providers Care Granite Polisher Machine Name Role Phone Bety KNIGHT, Ameena Primary Care Physician Encounter [facility] [place] [facility] R [id number] Date(s): 07/26/21 - 08/25/21 [facility] Attending Physician: Rafa Toney Admitting Physician: Rafa Toney Referring Physician: AdmtrRafa Allergies, Adverse Reactions, Alerts Substance Reaction Severity [...] Refills, Maintenance, 07/05/21 12:45:00 EST, Tablet, [id number], Partial fill upon patient request if the prescription is for a schedule II opioid drug., 135, cm, 09/21/20 11:34:00 EDT, Height Start Date: 07/05/21 Status: Ordered clopidogrel 75 mg oral tablet 1, tablet, By Mouth, Daily, ASA allergy, # 30 tablet, Refills 11, Tot. Refills 11, Maintenance, 07/05/21 12:44:00 EST, Route to Pharmacy Electronically, [facility]/pharmacy #[id number], 135, cm, 09/21/20 11:34:00EDT, Height Start [...] 11 Refills, Maintenance, 07/05/21 12:45:00 EST, Solution, [facility]/pharmacy #[id number], 135, cm, 09/21/20 11:34:00 EDT, Height Start Date: 07/05/21 Stop Date: 06/30/22 Status: Ordered lisinopril 20 mg oral tablet 1, tablet, By Mouth, Daily, # 28 tablet, Refills 11, Tot. Refills 11, Maintenance, 07/05/21 12:45:00 EST, Route to Pharmacy Electronically, [facility]/pharmacy #[id number], 135, cm, 09/21/20 11:34:00 EDT, Height Start Date: 07/05/21 Status: Ordered Pen [place], 30 G x 8 mm BD Ultra [...] nfirmed) 15 Active Osteoarthritis(Confirmed) Active Osteoporosis(Confirmed) Active *[id number] Care Partn er Opal Dong(Confirmed) Active Non-compliant patient(Confirmed) Active Respiratory failure requirin g intubation(Confirmed) 2004 Active Tubular adenoma(Confirmed) 17 11/2007 Active Urinary incontinence(Confirmed) Active Venous embolism(Confirmed) 18 Active 1PFTs normal in 2010 2recurrent 3bilat 98175's 5-Echo at [facility] on 06-21-14, 6Dr. Ingis 7Read Cardiology note form 12-20-15 8-reported by patient. In 2011 had dobutamine stress test, which showed no EKG findings suggestive of ischemia. 7-Nkce-kulybl today: 10Lt shoulder 11CT scan of the brain done on 05/14/13- unremarkable 12March 2013-the temporal artery biopsy was negative 13Evaluated by Rheumatology ([facility] and [facility]). Impression is fibromyalgia and OA 14-refuses CPAP 15reported by patient 16-2ary to asthma exacerbation. At [facility] 17Then again on . Had poor prep so it was recommended to repeat it in 1 year with 2 day of clears and 1 day of golytely. 2 medium sized adenomatous appearing polyps were removed [id number] Social History Social History Type Response Smoking Status Former smoker; Other : 2ppd x 5y; Stopped at age: 34; entered on: 09/11/17 Sex
--- OUTSIDE RECORDS SUMMARY | 2023-01-15 16:47 | XMS_ITS | Continuity of Care Document ---
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 Start [...] day, # 84 tablet, 0 Refills, Maintenance, 01/06/20 12:06:00 EDT, [facility], 135, cm, 07/23/18 11:47:00 EDT, Height, 84.3, kg, 07/23/18 11:47:00 EDT, Dry Weight Start Date: 01/06/20 Status: Ordered hydrochlorothiazide 25 mg oral tablet [...] follow up. please call office to schedule. [phone], # 30 tablet, Refills 2, Tot. Refills [...] DryWeight Start Date: 08/05/19 Status: Ordered Pen [place], 30 G x 8 mm BD Ultra [...] schedule., # 30 tablet, 0 Refills, Maintenance, 12/24/19 12:07:00 EDT, [facility], 135, cm, 07/23/18 11:47:00 EDT, Height, 84.3, kg, 07/23/18 11... Start Date: 12/24/19 Stop Date: 01/23/20 Status: Ordered Wixela Inhub 500 mcg-50 mcg [...] nfirmed) 14 Active Osteoarthritis(Confirmed) Active Osteoporosis(Confirmed) Active *[id number]-Care Partn er Celia Sánchez(Confirmed) Active Non-compliant patient(Confirmed) Active Respiratory failure requirin g intubation(Confirmed) 2004 Active Tubular adenoma(Confirmed) 16 11/2007 Active Urinary incontinence(Confirmed) Active Venous embolism(Confirmed) 17 Active 1PFTs normal in 2010 2recurrent 3bilat 76661's 5-Echo at [facility] on 06-21-14, 6Dr. Ingis 7Read Cardiology note form 12-20-15 8-reported by patient. In 2011 had dobutamine stress test, which showed no EKG findings suggestive of ischemia. 9Lt shoulder 10CT scan of the brain done on 05/14/13- unremarkable 2013-the temporal artery biopsy was negative 12Evaluated by Rheumatology ([facility] and [facility]). Impression is fibromyalgia and OA 13-refuses CPAP 14reported by patient 15-2ary to asthma exacerbation. At [facility] 16Then again on . Had poor prep so it was recommended to repeat it in 1 year with 2 day of clears and 1 day of golytely. 2 medium sized adenomatous appearing polyps were removed [id number] Social History Social History Type Response Smoking Status Former smoker; Other : 2ppd x 5y; Stopped at age: 34; entered on: 09/11/17 Sex
--- OUTSIDE RECORDS SUMMARY | 2023-01-15 16:47 | XMS_ITS | Continuity of Care Document ---
Author Name Unknown Organization [facility] Address Unknown Care Team Providers Care House Fellow Name Role Phone Bety KNIGHT, Ameena Primary Care Physician En[place] [facility] [place] Date(s): 09/10/21 - 10/10/21 [facility] Allergies, Adverse Reactions, Alerts Substance Reaction [...] mg, By Mouth, Daily, Patient will need [employer] pill dispenser, # 30 tablet, 11 Refills, Maintenance, 10/02/21 13:46:00 EDT, Tablet, [facility], Partial fill upon patient request if the prescription is for a schedule II opioid d... Start Date: 10/02/21 Status: Ordered Calcium 600 +D oral tablet 1 tablet, By Mouth, 3 times a day, calcium 600 and Vit D 400 units, # 90 tablet, 11 Refills, Maintenance, 10/02/21 13:33:00 EDT, [facility], Partial fill upon patient request if the prescription is for a schedule II opioid drug., 1 tablet By M... Start Date: 10/02/21 Status: Ordered clopidogrel 75 mg oral tablet 1, tablet, By Mouth, Daily, ASA allergy Patient will need [facility] pill dispenser, # 30 tablet, Refills 11, Tot. Refills 11, Maintenance, 10/02/21 13:46:00 EDT, Route to Pharmacy Electronically, [facility], 135, cm, 09/29/21 10:30:00 EDT, He... [...] 1, capsule, By Mouth, Daily at bedtime, for 30 days, # 30 capsule, Refills 0, Tot. Refills 0, Acute 11/08/21 20:56:00 EDT, 10/09/21 20:56:00 EDT, Route to Pharmacy Electronically, [facility], Partial fill upon patient request if the pr... Start Date: 10/09/21 Stop Date: 11/08/21 Status: Ordered Lantus Solostar Pen 100 units/mL subcutaneous solution = 20 units, Subcutaneous Injection, Daily, daily in the morning Patient will need [facility] pill dispenser, # 10 mL, 11 Refills, Maintenance, 10/02/21 13:47:00 EDT, Solution, [facility], 135,cm, 09/29/21 10:30:00 EDT, Height Start Date: 10/02/21 Stop Date: 09/27/22 Status: Ordered lisinopril 20 mg oral tablet 1, tablet, By Mouth, Daily, Patient will need [facility] pill dispenser, # 28 tablet, Refills 11, Tot. Refills 11, Maintenance, 10/02/21 13:48:00 EDT, Route to Pharmacy Electronically, [facility], 135, cm, 09/29/21 10:30:00 EDT, Height Start Date: 10/02/21 Status: Ordered Pen [place], 30 G x 8 mm BD Ultra [...] nfirmed) 15 Active Osteoarthritis(Confirmed) Active Osteoporosis(Confirmed) Active *[id number] Care Partn er Opal Umana(Confirmed) Active Non-compliant patient(Confirmed) Active Respiratory failure requirin g intubation(Confirmed) 16 2004 Active Tubular adenoma(Confirmed) 17 11/2007 Active Urinary incontinence(Confirmed) Active Venous embolism(Confirmed) 18 Active 1PFTs normal in 2010 2recurrent 3bilat 34692's 5-Echo at [facility] on 06-21-14, 6Dr. Ingis 7Read Cardiology note form 12-20-15 8-reported by patient. In 2011 had dobutamine stress test, which showed no EKG findings suggestive of ischemia. 2-Uqeb-qphqcf today: 10Lt shoulder 11CT scan of the brain done on 05/14/13- unremarkable 12March 2013-the temporal artery biopsy was negative 13Evaluated by Rheumatology ([facility] and [facility]). Impression is fibromyalgia and OA 14-refuses CPAP 15reported by patient 16-2ary to asthma exacerbation. At [facility] 17Then again on . Had poor prep so it was recommended to repeat it in 1 year with 2 day of clears and 1 day of golytely. 2 medium sized adenomatous appearing polyps were removed [id number] Social History Social History Type Response Smoking Status Former smoker; Other : 2ppd x 5y; Stopped at age: 34; entered on: 09/11/17 Sex
--- OUTSIDE RECORDS SUMMARY | 2023-01-15 16:47 | XMS_ITS | Continuity of Care Document ---
Author Name Unknown Organization [facility] Address Unknown Care Team Providers Care Simulation Analyst Name Role Phone Bety KNIGHT, Ameena Primary Care Physician Encounter [facility] [place] Date(s): 11/14/21 - 12/14/21 [facility] Allergies, Adverse Reactions, Alerts Substance Reaction Severity [...] 11/14/2214:05:00 EDT, Aerosol, Route to Pharmacy Electronically, NCPDP_[id number], [facility], 135,cm, 10/11/21 9:20:00 EDT, Height Start Date: 11/14/21 Status: Ordered atorvastatin 20 mg oral tablet 1 tablet = 20 mg, By Mouth, Daily, Patient will need [facility] pill dispenser, # 30 tablet, 11 Refills, Maintenance, 10/02/21 13:46:00 EDT, Tablet, [facility], Partial fill upon patient request if the prescription is for a schedule II opioid d... Start Date: 10/02/21 Status: Ordered Calcium 600 +D oral tablet 1 tablet, By Mouth, 2 times a day, calcium 600 and Vit D 400 units, # 90 tablet, 11 Refills, Maintenance, 10/11/21 10:03:00 EDT, [facility], Partial fill upon patient request if the prescription is for a schedule II opioid drug., 1 tablet By M... Start Date: 10/11/21 Status: Ordered clopidogrel 75 mg oral tablet 1, tablet, By Mouth, Daily, ASA allergy Patient will need [facility] pill dispenser, # 30 tablet, Refills 11, Tot. Refills 11, Maintenance, 10/02/21 13:46:00 EDT, Route to Pharmacy Electronically, [facility], 135, cm, 09/29/21 10:30:00 EDT, He... [...] Status: Ordered gabapentin 100 mg oral capsule 200 mg, 2, capsule, By Mouth, Daily, for 30 days, This is the correct prescription: 2 tablets dialyin the morning., # 60 capsule, Refills 0, Tot. Refills 0, Acute 12/30/21 13:29:00 EDT, 11/30/21 13:29:00 EDT, Route to Pharmacy Electronically, [facility]... Start Date: 11/30/21 Stop Date: 12/30/21 Status: Ordered Lantus Solostar Pen 100 units/mL subcutaneous solution = 20 units, Subcutaneous Injection, Daily, daily in the morning Patient will need [facility] pill dispenser, # 10 mL, 11 Refills, Maintenance, 10/02/21 13:47:00 EDT, Solution, [facility], 135,cm, 09/29/21 10:30:00 EDT, Height Start Date: 10/02/21 Stop Date: 09/27/22 Status: Ordered lisinopril 20 mg oral tablet 1, tablet, By Mouth, Daily, Patient will need [employer] pill dispenser, # 28 tablet, Refills 11, Tot. Refills 11, Maintenance, 10/02/21 13:48:00 EDT, Route to Pharmacy Electronically, [facility], 135, cm, 09/29/21 10:30:00 EDT, Height Start Date: 10/02/21 Status: Ordered Pen [place], 30 G x 8 mm BD Ultra [...] Active Hyperlipidemia(Confirmed) Active Hypertension(Confirmed) Active Cognitive decline(Confirmed) 9, 10 Active Lipoma (clinical)(Confirmed) 11 Active Low back pain(Confirmed) Active Chronic migraine(Confirmed) 12, 13, 14 Active Myofacial pain dysfunction syndrome(Confirmed) 15 Active Obese class I(Confirmed) Active Obesity(actual BMI 38.36 as of 05/14/2013)(Confirmed) Active Obstructive sleep apnea(Confirmed) 16 Active 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 Ingis 7Read Cardiology note form 12-20-15 8-reported by patient. In 2011 had dobutamine stress test, which showed no EKG findings suggestive of ischemia. 9-Minimental today: 18-Vyoc-vvijsv today: 11Lt shoulder 12-admission in 2016 for Left sided weakness and associated headache, ruled out from CVA, likely Complex Migraine 13CT scan of the brain done on 05/14/13- unremarkable 14March 2013-the temporal artery biopsy was negative 15Evaluated by Rheumatology ([facility] and [facility]). Impression is fibromyalgia and OA 16-refuses CPAP 17reported by patient 18-2ary to asthma exacerbation. At [facility] 19Then again on . Had poor [...]
--- OUTSIDE RECORDS SUMMARY | 2023-01-15 16:47 | XMS_ITS | Continuity of Care Document ---
Author Name Unknown Organization [facility] Address Unknown Care Team Providers Care Applications Engineering Manager Name Role Phone Bety KNIGHT, Ameena Primary Care Physician [facility] [place] Date(s): 09/28/21 - 10/28/21 [facility] Allergies, Adverse Reactions, Alerts Substance Reaction [...] mg, By Mouth, Daily, Patient will need [email or web address] pill dispenser, # 30 tablet, 11 Refills, Maintenance, 10/02/21 13:46:00 EDT, Tablet, [facility], Partial fill upon patient request if the prescription is for a schedule II opioid d... Start Date: 10/02/21 Status: Ordered Calcium 600 +D oral tablet 1 tablet, By Mouth, 2 times a day, calcium 600 and Vit D 400 units, # 90 tablet, 11 Refills, Maintenance, 10/11/21 10:03:00 EDT, [facility], Partial fill upon patient request if the prescription is for a schedule II opioid drug., 1 tablet By M... Start Date: 10/11/21 Status: Ordered clopidogrel 75 mg oral tablet 1, tablet, By Mouth, Daily, ASA allergy Patient will need [facility] pill dispenser, # 30 tablet, Refills 11, Tot. Refills 11, Maintenance, 10/02/21 13:46:00 EDT, Route to Pharmacy Electronically, [facility], 135, cm, 09/29/21 10:30:00 EDT, He... [...] 10/09/21 20:56:00 EDT, Route to Pharmacy Electronically, [facility], Partial fill upon patient request if the pr... Start Date: 10/09/21 Stop Date: 11/08/21 Status: Ordered Lantus Solostar Pen 100 units/mL subcutaneous solution = 20 units, Subcutaneous Injection, Daily, daily in the morning Patient will need [facility] pill dispenser, # 10 mL, 11 Refills, Maintenance, 10/02/21 13:47:00 EDT, Solution, [facility], 135,cm, 09/29/21 10:30:00 EDT, Height Start Date: 10/02/21 Stop Date: 09/27/22 Status: Ordered lisinopril 20 mg oral tablet 1, tablet, By Mouth, Daily, Patient will need [facility] pill dispenser, # 28 tablet, Refills 11, Tot. Refills 11, Maintenance, 10/02/21 13:48:00 EDT, Route to Pharmacy Electronically, [facility], 135, cm, 09/29/21 10:30:00 EDT, Height Start Date: 10/02/21 Status: Ordered Pen [place], 30 G x 8 mm BD Ultra [...] nfirmed) 17 Active Osteoarthritis(Confirmed) Active Osteoporosis(Confirmed) Active *[id number] Care Partn er Opal Umana(Confirmed) Active Non-compliant patient(Confirmed) Active Respiratory failure requirin g intubation(Confirmed) 2004 Active Tubular adenoma(Confirmed) 19 11/2007 Active Urinary incontinence(Confirmed) Active Venous embolism(Confirmed) 20 Active 1PFTs normal in 2010 2recurrent 3bilat 92982's 5-Echo at [facility] on 06-21-14, 6Dr. Ingis 7Read Cardiology note form 24-16 8-reported by patient. In 2011 had dobutamine stress test, which showed no EKG findings suggestive of ischemia. 9-Minimental today: 71-Wdff-umxmdv today: 11Lt shoulder 12-admission in 2017 for Left sided weakness and associated headache, ruled out from CVA, likely Complex Migraine 13CT scan of the brain done on 05/14/13- unremarkable 14March 2013-the temporal artery biopsy was negative 15Evaluated by Rheumatology ([facility] and [facility]). Impression is fibromyalgia and OA 16-refuses CPAP 17reported by patient 18-2ary to asthma exacerbation. At [facility] 19Then again on . Had poor [...]
--- OUTSIDE RECORDS SUMMARY | 2023-01-15 16:47 | XMS_ITS | Continuity of Care Document ---
Author Name Unknown Organization [facility] Address [address] [place] [address]- Care Team Providers Care Superintendent Transportation Name Role Phone Bety KNIGHT, Ameena Primary Care Physician [place] [facility] [place] - 01/12/23 [facility]/[place] [address]- [place] Allergies, Adverse Reactions, Alerts Substance Reaction [...] influenza virus vaccine, inactivated 2 02/22/16 Gi camrno Pneumococcal Poly (PPV23) (oldterm) 3 08/10/09 Giv en 1Result Comment: [02/22/2016] ORDERED BY AMEENA ALBERT MD 2Result Comment: [02/22/2016] ordered by Bharat Albert MD 3Admin Note: PT REFUSED VACCINE. hAS NEVER RECIEVED ANY OTHER VACCINE IN HER LIFE EXCEPT FOR A TETANUS FOR WHICH SHE IMMEDIATELY SWE Medications atorvastatin 20 mg oral tablet 1 tablet = 20 mg, By Mouth, Daily, # 90 tablet, 3 Refills, Maintenance, 12/10/22 16:06:00 EDT, Tablet, [id number], Partial fill upon patient request if the prescription is for a schedule II opioid drug., 135, cm, 12/09/22 11:51:00 EDT, Height,... Start Date: 12/10/22 Status: Ordered clopidogrel 75 mg oral tablet 1, tablet, By Mouth, Daily, Hx of CVA and ASA allergy, # 90 tablet, Refills 3, Tot. Refills 3, Maintenance, 12/10/22 16:55:00 EDT, Route to Pharmacy Electronically, [facility]/pharmacy #[id number], please note that diagnosis was changed and presription resent, 135... Start Date: 12/10/22 Status: Ordered FREESTYLE LANCETS MISC FREESTYLE LANCETS MISC, See Instructions, # 100 each, 11 Refills, Maintenance, USE DIRECTED THREE TIMES DAILY TO TEST BLOOD SUGAR, 09/12/22 12:14:00 EDT, 135, cm, 06/04/22 14:59:00 EST, Height, 55.9, kg, 06/04/22 15:07:00 EST, Dry Weight Start Date: 09/12/22 Status: Ordered FreeStyle Tavo 2 Monitor See Instructions, # 1 each, Maintenance, dx: E11.65 and F01.5 to check BG 3 times per day, 12/11/2318:56:00 EDT, Supply, 135, cm, 12/09/22 11:51:00 EDT, Height, 55.9, kg, 06/04/22 15:07:00 EST, Dry Weight Start Date: 12/11/22 Status: Ordered FreeStyle Tavo 2 Monitor See Instructions, # 1 each, Maintenance, 90 day supply. dx: Ell.65 AND R41.81 To check BG 3 times per day, 12/10/22 16:13:00 EDT, Supply, 135, cm, 12/09/22 11:51:00 EDT, Height, 55.9, kg, 06/04/22 15:07:00 EST, Dry Weight Start Date: 12/10/22 Status: Ordered FreeStyle Tavo 2 Sensors See Instructions, # 2 each, Refills 11, Tot. Refills 11, Maintenance, dx: E11.65 and F01.5 to checkBG 3 times per day, 12/11/22 19:56:00 EDT, Supply, 135, cm, 12/09/22 11:51:00 EDT, Height, 55.9, kg, 06/04/22 15:07:00 EST, Dry Weight Start Date: 12/11/22 Status: Ordered FreeStyle Tavo 2 Sensors See Instructions, # 6 each, Refills 3, Tot. Refills 3, Maintenance, 90 day supply. dx: Ell.65 AND R41.81 to check BG 3 times per day, 12/10/22 16:13:00 EDT, Supply, 135, cm, 12/09/22 11:51:00 EDT, Height, 55.9, kg, 06/04/22 15:07:00 EST, Dry Weight Start Date: 12/10/22 Status: Ordered FREESTYLE LITE TEST STRIP 100CT FREESTYLE LITE TEST STRIP 100CT, See Instructions, # 100 Unknown, 11 Refills, Maintenance, USE DIRECTED THREE TIMES DAILY TO TEST BLOOD SUGAR, 09/12/22 12:13:00 EDT, 135, cm, 06/04/22 14:59:00 EST, Height, 55.9, kg, 06/04/22 15:07:00 EST, Dry Weight Start Date: 09/12/22 Status: Ordered gabapentin 100 mg oral capsule 2, capsule, By Mouth, 2 times a day, # 360 capsule, Refills 3, Tot. Refills 3, Maintenance, 12/10/22 16:08:00 EDT, Route to Pharmacy Electronically, [facility]/pharmacy #[id number], 135, cm, 12/09/22 11:51:00 EDT, Height, 55.9, kg, 06/04/22 15:07:00 EST, Dry Weight Start Date: 12/10/22 Stop Date: 12/05/23 Status: Ordered Lantus Solostar Pen 100 units/mL subcutaneous solution = 20 units, Subcutaneous Injection, Daily, daily in the morning, # 15 mL, 2 Refills, Maintenance, 12/10/22 16:12:00 EDT, Solution, [facility]/pharmacy #[id number], 135, cm, 12/09/22 11:51:00 EDT, Height, 55.9, kg, 06/04/22 15:07:00 EST, Dry Weight Start Date: 12/10/22 Stop Date: 09/06/23 Status: Ordered lisinopril 20 mg oral tablet 1, tablet, By Mouth, Daily, # 90 tablet, Refills 3, Tot. Refills 3, Maintenance, 12/10/22 16:06:00 EDT, Route to Pharmacy Electronically, [facility]/pharmacy #[id number], 135, cm, 12/09/22 11:51:00 EDT, Height, 55.9, kg, 06/04/22 15:07:00 EST, Dry Weight Start Date: 12/10/22 Stop Date: 12/05/23 Status: Ordered Pen [place], 30 G x 8 mm BD Ultra Fine II See Instructions, # 90 each, Refills 3, Tot. Refills 3, Maintenance, to use with lantus daily, 12/10/22 16:06:00 EDT, Compound, 135, cm, 12/09/22 11:51:00 EDT, Height, 55.9, kg, 06/04/22 15:07:00 EST, Dry Weight Start Date: 12/10/22 Status: Ordered sertraline 50 mg oral tablet 1 tablet = 50 mg, By Mouth, Daily, # 90 tablet, 3 Refills, Maintenance, 12/10/22 16:10:00 EDT, [facility]/pharmacy #[id number], Partial fill upon patient request if the prescription is for a schedule II opioid drug., 135, cm, 12/09/22 11:51:00 EDT, Height, 55.9, k... Start Date: 12/10/22 Status: Ordered traZODone 50 mg oral tablet See Instructions, 1 tablet daily in the afternoon (for anxiety), # 90 tablet, Refills 3, Tot. Refills 3, Maintenance, 12/10/22 16:09:00 EDT, Instructions Replace Required Details, Route to Pharmacy Electronically, [facility]/pharmacy #[id number], Partial fill upon... Start Date: 12/10/22 Status: Ordered Ventolin HFA 108 mcg/inh inhalation aerosol with adapter 2 puffs, Inhalation, Every 6 hours, PRN NEEDED FOR WHEEZING SHORTNESS OF BREATH ^BULK, # 18 Gm, 2 Refills, Maintenance, 12/10/22 16:06:00 EDT, [facility]/pharmacy #[id number], 135, cm, 12/09/22 11:51:00 EDT, Height, 55.9, kg, 06/04/22 15:07:00 EST, Dry Weight Start Date: 12/10/22 Status: Ordered Problem List Condition Confirmation Course [...] Confirmed Active History of myocardial infarction 7, 8, 9 Confirmed Active Hyperlipidemia Confirmed Active Hypertension Confirmed Active Cognitive decline 10, 11 Confirmed Active Lipoma (clinical) 12 Confirmed Active Low back pain Confirmed Active Chronic migraine 13, 14, 15 Confirmed Active Myofacial pain dysfunction syndrome 16 Confirmed Active Obese class I Confirmed Active Obesity(actual BMI 38.36 as of 05/14/2013) Confirmed Active Obstructive sleep apnea 17 Confirmed Active Osteoarthritis Confirmed Active Osteoporosis Confirmed Active [id number] [employer] Kayce Byrne Confirmed Active Respiratory failure requiring intubation 18 Confirmed 2004 Active Tubular adenoma 19 Confirmed 11/2007 Active Urinary incontinence Confirmed Active Venous embolism 20 Confirmed Active 1PFTs normal in 2010 2recurrent 3bilat 41067's 5-Echo at [facility] on 06-21-14, 6Dr. Ingis 7 She has multiple chest discomfort sensations none of which are particularly anginal in nature. Shehas had multiple stress tests in the past all of which is been negative. 8Read Cardiology note form 8-24-16 9-reported by patient. In 2011 had dobutamine stress test, which showed no EKG findings suggestive of ischemia. 10-Minimental today: 34-Elja-chkdpk today: 12Lt shoulder 13-admission in 2017 for Left sided weakness and associated headache, ruled out from CVA, likely Complex Migraine 14CT scan of the brain done on 05/14/13- unremarkable 15March 2013-the temporal artery biopsy was negative 16Evaluated by Rheumatology ([facility] and [facility] Impression is fibromyalgia and OA 17-refuses CPAP 18-2ary to asthma exacerbation. At [facility] 19Then again on . Had poor prep so it was recommended to repeat it in 1 year with 2 day of clears and 1 day of golytely. 2 medium sized adenomatous appearing polyps were removed Social History Social History Type Response Smoking Status Former smoker, quit more than 30 days ago entered on: 12/09/22 Sex Patient Care team information Care Team Personnel Name: Gavi Arthur RN Position: [facility] AMB Nurse Member Role: Primary Care Nurse Name: Malgorzata Ugalde RN Position: [facility] SN RN Member Role: Primary Care Nurse Name: Tsering Casey RN Position: S RN Member Role: Primary Care Nurse Name: Ameena Albert MD Position: S Physician - Primary Care Member Role: PCP Address: Address: [address] [place] [id number] Name: Aliza Lemon RN Position: S RN Member Role: Primary Care Nurse Name: Tsering Johnson RN Position: S RN Member Role: Primary Care Nurse Care Team Related Persons Name: DOYLEJCARLOS Kramer Address: home [address] [place] [address] Name: JUAN M SILVA Name: GRACE MADRIGAL Address: [place] [address] Name: BERENICE DELA CRUZ EDUCATION DEPARTMENT CHAIR
--- OUTSIDE RECORDS SUMMARY | 2023-01-15 16:47 | XMS_ITS | Continuity of Care Document ---
Author Name Unknown Organization [facility] Address Unknown Care Team Providers Care Rotor Pilot Name Role Phone Bety KNIGHT, Ameena Primary Care Physician En[place] [facility] [place](s): 11/16/21 - 12/16/21 [facility] Allergies, Adverse Reactions, Alerts Substance Reaction Severity [...] 11/14/2214:05:00 EDT, Aerosol, Route to Pharmacy Electronically, NCPDP_[id number], [facility], 135,cm, 10/11/21 9:20:00 EDT, Height Start Date: 11/14/21 Status: Ordered atorvastatin 20 mg oral tablet 1 tablet = 20 mg, By Mouth, Daily, Patient will need [facility] pill dispenser, # 30 tablet, 11 Refills, Maintenance, 10/02/21 13:46:00 EDT, Tablet, [facility], Partial fill upon patient request if the prescription is for a schedule II opioid d... Start Date: 10/02/21 Status: Ordered Calcium 600 +D oral tablet 1 tablet, By Mouth, 2 times a day, calcium 600 and Vit D 400 units, # 90 tablet, 11 Refills, Maintenance, 10/11/21 10:03:00 EDT, [facility], Partial fill upon patient request if the prescription is for a schedule II opioid drug., 1 tablet By M... Start Date: 10/11/21 Status: Ordered clopidogrel 75 mg oral tablet 1, tablet, By Mouth, Daily, ASA allergy Patient will need [facility] pill dispenser, # 30 tablet, Refills 11, Tot. Refills 11, Maintenance, 10/02/21 13:46:00 EDT, Route to Pharmacy Electronically, [facility], 135, cm, 09/29/21 10:30:00 EDT, He... [...] 11/30/21 13:29:00 EDT, Route to Pharmacy Electronically, [facility]... Start Date: 11/30/21 Stop Date: 12/30/21 Status: Ordered Lantus Solostar Pen 100 units/mL subcutaneous solution = 20 units, Subcutaneous Injection, Daily, daily in the morning Patient will need [facility] pill dispenser, # 10 mL, 11 Refills, Maintenance, 10/02/21 13:47:00 EDT, Solution, [facility], 135,cm, 09/29/21 10:30:00 EDT, Height Start Date: 10/02/21 Stop Date: 09/27/22 Status: Ordered lisinopril 20 mg oral tablet 1, tablet, By Mouth, Daily, Patient will need [facility] pill dispenser, # 28 tablet, Refills 11, Tot. Refills 11, Maintenance, 10/02/21 13:48:00 EDT, Route to Pharmacy Electronically, [facility], 135, cm, 09/29/21 10:30:00 EDT, Height Start Date: 10/02/21 Status: Ordered Pen [place], 30 G x 8 mm BD Ultra [...] nfirmed) 17 Active Osteoarthritis(Confirmed) Active Osteoporosis(Confirmed) Active *[id number] Care Partn er Opaldora Lópeze(Confirmed) Active Non-compliant patient(Confirmed) Active Respiratory failure requirin g intubation(Confirmed) 2004 Active Tubular adenoma(Confirmed) 19 11/2007 Active Urinary incontinence(Confirmed) Active Venous embolism(Confirmed) 20 Active 1PFTs normal in 2010 2recurrent 3bilat 22880's 5-Echo at [facility] on 06-21-14, 6Dr. Ingis 7Read Cardiology note form 12-20-15 8-reported by patient. In 2011 had dobutamine stress test, which showed no EKG findings suggestive of ischemia. 9-Minimental today: 35-Dzow-jufdln today: 11Lt shoulder 12-admission in 2016 for Left sided weakness and associated headache, ruled out from CVA, likely Complex Migraine 13CT scan of the brain done on 05/14/13- unremarkable 14March 2013-the temporal artery biopsy was negative 15Evaluated by Rheumatology ([facility] and [facility]). Impression is fibromyalgia and OA 16-refuses CPAP 17reported by patient 18-2ary to asthma exacerbation. At [facility] 19Then again on . Had poor [...]
--- OUTSIDE RECORDS SUMMARY | 2023-01-15 16:47 | XMS_ITS | Continuity of Care Document ---
Author Name Unknown Organization [facility] Address [address] [place] [address]- Care Team Providers Care Boiler Water Tester Name Role Phone Bety KNIGHT, Ameena Primary Care Physician En[place] [facility] [place] Date(s): 11/23/21 - 12/23/21 [facility] [address]- [place] Allergies, Adverse Reactions, Alerts Substance Reaction [...] 11/14/2214:05:00 EDT, Aerosol, Route to Pharmacy Electronically, NCPDP_[id number], [facility], 135,cm, 10/11/21 9:20:00 EDT, Height Start Date: 11/14/21 Status: Ordered atorvastatin 20 mg oral tablet 1 tablet = 20 mg, By Mouth, Daily, Patient will need [facility] pill dispenser, # 30 tablet, 11 Refills, Maintenance, 10/02/21 13:46:00 EDT, Tablet, [facility], Partial fill upon patient request if the prescription is for a schedule II opioid d... Start Date: 10/02/21 Status: Ordered Calcium 600 +D oral tablet 1 tablet, By Mouth, 2 times a day, calcium 600 and Vit D 400 units, # 90 tablet, 11 Refills, Maintenance, 10/11/21 10:03:00 EDT, [facility], Partial fill upon patient request if the prescription is for a schedule II opioid drug., 1 tablet By M... Start Date: 10/11/21 Status: Ordered clopidogrel 75 mg oral tablet 1, tablet, By Mouth, Daily, ASA allergy Patient will need [employer] pill dispenser, # 30 tablet, Refills 11, Tot. Refills 11, Maintenance, 10/02/21 13:46:00 EDT, Route to Pharmacy Electronically, [facility], 135, cm, 09/29/21 10:30:00 EDT, He... [...] 11/30/21 13:29:00 EDT, [facility] to [facility]ically, [facility] Start Date: 11/30/21 Stop Date: 12/30/21 Status: Ordered Lantus Solostar Pen 100 units/mL subcutaneous solution = 20 units, Subcutaneous Injection, Daily, daily in the morning Patient will need [employer] pill dispenser, # 10 mL, 11 Refills, Maintenance, 10/02/21 13:47:00 EDT, Solution, [facility], 135,cm, 09/29/21 10:30:00 EDT, Height Start Date: 10/02/21 Stop Date: 09/27/22 Status: Ordered lisinopril 20 mg oral tablet 1, tablet, By Mouth, Daily, Patient will need [employer] pill dispenser, # 28 tablet, Refills 11, Tot. Refills 11, Maintenance, 10/02/21 13:48:00 EDT, Route to Pharmacy Electronically, [facility], 135, cm, 09/29/21 10:30:00 EDT, Height Start Date: 10/02/21 Status: Ordered Pen [place], 30 G x 8 mm BD Ultra [...] nfirmed) 17 Active Osteoarthritis(Confirmed) Active Osteoporosis(Confirmed) Active *[id number] Care Partn er Opal Dong(Confirmed) Active Non-compliant patient(Confirmed) Active Respiratory failure requirin g intubation(Confirmed) 2004 Active Tubular adenoma(Confirmed) 19 11/2007 Active Urinary incontinence(Confirmed) Active Venous embolism(Confirmed) 20 Active 1PFTs normal in 2010 2recurrent 3bilat 14309's 5-Echo at [facility] on 06-21-14, 6Dr. Ingis 7Read Cardiology note form 8-24-16 8-reported by patient. In 2011 had dobutamine stress test, which showed no EKG findings suggestive of ischemia. 9-Minimental today: 85-Nkaa-zaxnhk today: 11Lt shoulder 12-admission in 2017 for Left sided weakness and associated headache, ruled out from CVA, likely Complex Migraine 13CT scan of the brain done on 05/14/13- unremarkable 14March 2013-the temporal artery biopsy was negative 15Evaluated by Rheumatology ([facility] and [facility]). Impression is fibromyalgia and OA 16-refuses CPAP 17reported by patient 18-2ary to asthma exacerbation. At [facility] 19Then again on . Had poor prep so it was recommended to repeat it in 1 year with 2 day of clears and 1 day of golytely. 2 medium sized adenomatous appearing polyps were removed Social History Social History Type Response Smoking Status Former smoker; Other : 2ppd x 5y; Stopped at age: 34; entered on: 09/11/17 Sex Care Team Personnel Name: Ameena Albert MD Address: [address] [place] [address]
--- OUTSIDE RECORDS SUMMARY | 2023-01-15 16:47 | XMS_ITS | Continuity of Care Document ---
Author Name Unknown Organization [facility] ter Address [address] [place] [id number] Care Team Providers Care Prop Setter Name Role Phone Bety KNIGHT, Bakari Primary Care Physician [place] [facility] [place] - 06/02/[address] [address]- Discharge Disposition: A-D/C Home Attending Physician: gInacio Padgett DO Admitting Physician: Ignacio Padgett DO Referring Physician: Not on Staff, Referring MD Allergies, Adverse Reactions, Alerts Substance Reaction Severity Status acetaminophen Active penicillin ITCHING, RASH Active Motrin Active Latex SWELLING Active aspirin rash Active tetanus toxoid SWELLING Active Benadryl RASH, VOMITING Active Nuts RASH Active Egg Allergy TONGUE [...] mg, By Mouth, Daily, Patient will need [employer] pill dispenser, # 30 tablet, 11 Refills, Maintenance, 10/02/21 13:46:00 EDT, Tablet, [facility], Partial fill upon patient request if the prescription is for a schedule II opioid d... Start Date: 10/02/21 Status: Ordered Calcium 600 +D oral tablet 1 tablet, By Mouth, 2 times a day, calcium 600 and Vit D 400 units, # 90 tablet, 11 Refills, Maintenance, 10/11/21 10:03:00 EDT, [facility], Partial fill upon patient request if the prescription is for a schedule II opioid drug., 1 tablet By M... Start Date: 10/11/21 Status: Ordered clopidogrel 75 mg oral tablet 1, tablet, By Mouth, Daily, ASA allergy Patient will need [employer] pill dispenser, # 30 tablet, Refills 11, Tot. Refills 11, Maintenance, 10/02/21 13:46:00 EDT, [facility], cm, 09/29/21 10:30:00 EDT, He... [...] 05/09/22 18:59:00 EST, Route to Pharmacy Electronically, [facility], 135, cm, 10/11/21 9:20:00 EDT, Height Start Date: 05/09/22 Status: Ordered Lantus Solostar Pen 100 units/mL subcutaneous solution = 20 units, Subcutaneous Injection, Daily, daily in the morning Patient will need [employer] pill dispenser, # 10 mL, 11 Refills, Maintenance, 10/02/21 13:47:00 EDT, Solution, [facility], 135,cm, 09/29/21 10:30:00 EDT, Height Start Date: 10/02/21 Stop Date: 09/27/22 Status: Ordered lisinopril 20 mg oral tablet 1, tablet, By Mouth, Daily, Patient will need [employer] pill dispenser, # 28 tablet, Refills 11, Tot. Refills 11, Maintenance, 10/02/21 13:48:00 EDT, Route to Pharmacy Electronically, [facility], 135, cm, 09/29/21 10:30:00 EDT, Height Start Date: 10/02/21 Status: Ordered Pen [place], 30 G x 8 mm BD Ultra Fine II See Instructions, # 30 each, Refills 11, Tot. Refills 11, Maintenance, to use with lantus daily, 10/02/21 13:47:00 EDT, Compound, 135, cm, 09/29/21 10:30:00 EDT, Height Start Date: 10/02/21 Status: Ordered Ventolin HFA 108 mcg/inh inhalation aerosol with adapter 2 puffs, Inhalation, Every 6 hours, PRN NEEDED FOR WHEEZING SHORTNESS OF BREATH, # 18 Gm, 2 Refills, Maintenance, 05/09/22 18:39:00 EST, [facility], 135, cm, 10/11/21 9:20:00 EDT, Height [...] Active Osteoarthritis Confirmed Active Osteoporosis Confirmed Active *[id number] Direct Service Provider Opal Umana Confirmed Active Non-compliant patient Confirmed Active Respiratory failure requiring intubation 18 Confirmed 2004 Active Tubular adenoma 19 Confirmed 11/2007 Active Urinary incontinence Confirmed Active Venous embolism 20 Confirmed Active 1PFTs normal in 2010 2recurrent 3bilat 27668's 5-Echo at [facility] on 06-21-14, 6Dr. Ingis 7Read Cardiology note form 12-20-15 8-reported by patient. In 2011 had dobutamine stress test, which showed no EKG findings suggestive of ischemia. 9-Minimental today: 16-Qmhg-czynpw today: 11Lt shoulder 12-admission in 2016 for Left sided weakness and associated headache, ruled out from CVA, likely Complex Migraine 13CT scan of the brain done on 05/14/13- unremarkable 14March 2013-the temporal artery biopsy was negative 15Evaluated by Rheumatology ([facility]). Impression is fibromyalgia and OA 16-refuses CPAP 17reported by patient 18-2ary to asthma exacerbation. At [facility] 19Then again on . Had poor prep so it was recommended to repeat it in 1 year with 2 day of clears and 1 day of golytely. 2 medium sized adenomatous appearing polyps were removed Results Radiology Reports * Exam Date Time Procedure Performing Provider Status 06/02/22 2:47 PM US RUQ Maryam Schneider; Auth (Ve rified) Notes: (US RUQ) Reason For Exam: Abdominal Pain;Other: RESULT: US RUQ US RUQ Hx of Present Illness: Multiple complaints, initial for chest pain and sob beginning yesterday - now pt reporting r sided abd flank pain- rebound guarding appreciated denies nausea at this time; Reason: Other:; Abdominal Pain; Clinical Question(s): Cholecystitis COMPARISON: CT the abdomen and pelvis dated June 02, 2022. FINDINGS: Liver: Normal in size and echotexture. No suspicious lesion. Smooth hepatic contour. Main portal vein patent with normal hepatopetal direction of flow. Gallbladder: Distended gallbladder without wall thickening or surrounding free fluid. Sonographic Crowe sign is negative. Biliary Tree: No intrahepatic or extrahepatic bile duct dilation is identified. Common duct measures: 0.8 cm. Pancreas: No abnormality in the visualized portions of the pancreas. Right kidney: 10.7 cm in length. Normal parenchymal echotexture and thickness. No hydronephrosis, stone or mass. IMPRESSION: Distended gallbladder without wall thickening or surrounding free fluid. Sonographic Crowe sign isnegative. Findings may be due to fasting status or potentially very early acute cholecystitis. HIDAscan could be considered if there is strong clinical suspicion of acute cholecystitis. WSN: [id number] Ordering Physician: Meaghan Curiel Dictated By: Tra Eaton MD Dictated Date/Time: 06/02/22 4:14 pm Reviewed By: Tra Eaton MD Signed By: Tra Eaton MD Signed Date/Time: 06/02/22 4:14 pm Transcribed By: RISHABH Transcribed Date/Time: 06/02/22 4:11 pm * Exam Date Time Procedure Performing Provider Status 06/02/22 3:07 PM Chest 2 Views Frontal and Lat Celsa Schrader; Auth (Verified) Notes: (Chest 2 Views Frontal and Lat) Reason For Exam: Shortness of Breath, Fever;Other: RESULT: Chest 2 Views Frontal and Lat Chest 2 Views Frontal and Lat Hx of Present Illness: Multiple complaints, initial for chest pain and sob beginning yesterday - now pt reporting r sided abd flank pain- rebound guarding appreciated denies nausea at this time; Reason: Other:; Shortness of Breath, Fever; Clinical Question(s): Pneumonia COMPARISON: 12/09/2016 FINDINGS: LINES AND TUBES: None. LUNGS AND PLEURA: Clear lungs. Normal pulmonary vascularity. No pleural effusion. No pneumothorax. HEART, MEDIASTINUM AND DANIELLA: Heart is normal in size. Aortic arch atherosclerosis. BONES AND SOFT TISSUES: No acute abnormality. IMPRESSION: No acute abnormality. WSN: [id number] Ordering Physician: Meaghan Curiel Dictated By: Ana Treviño MD Dictated Date/Time: 06/02/22 3:52 pm Reviewed By: Ana Treviño MD Signed By: Ana Treviño MD Signed Date/Time: 06/02/22 3:52 pm Transcribed By: RISHABH Transcribed Date/Time: 06/02/22 3:35 pm * Exam Date Time Procedure Performing Provider Status 06/02/22 1:[address] Abd/Pelvis W/ IV Contrast Only Roxie Garsia; Auth (Verified) Notes: (CT Abd/Pelvis W/ IV Contrast Only) Reason For Exam: RLQ abdominal pain / diffuse abd pain;Other: RESULT: CT Abd/Pelvis W/ IV Contrast Only CT Abd/Pelvis W/ IV Contrast Only Hx of Present Illness: Multiple complaints, initial for chest pain and sob beginning yesterday - now pt reporting r sided abd flank pain- rebound guarding appreciated denies nausea at this time; Reason: Other:; RLQ abdominal pain diffuse abd pain; Clinical Question(s): Other:; Order Comment: TECHNIQUE: Spiral CT through the abdomen and pelvis with IV contrast formatted in 3 planes. 85 cc of Omnipaque 300 was administered intravenously. This study was performed without oral contrast. Weight-based protocol using automatic tube modulation was used to optimize exposure parameters. CTDIvol Body: 12.00 mGy, DLP Body: 592 mGy*cm. COMPARISON: 04/17/2012 FINDINGS: Fisheries Manager View Findings, Lines and Tubes: None. Visualized Chest: Granuloma at the right lung base. No suspicious findings in the lung bases. No pleural or pericardial effusion. Normal cardiac size. Diaphragm: Normal. Liver: There is a lobular cystic lesion again seen in the right lobe, adjacent to the caudate. It has circumscribed margins and has a benign appearance. Current measurements are 2 x 1.5 x 0.9 cm. Otherwise no suspicious hepatic findings. Gallbladder: The gallbladder demonstrates nonspecific mural thickening or mild pericholecystic fluid. Ultrasound is recommended for further evaluation. Bile ducts: Minimally distended common bile duct up to about 7-8 mm. No calcification or definite duct stone. Spleen: Normal. Pancreas: Normal. Adrenal glands: Mild bilateral limb thickening, left greater than right. Kidneys and ureters: No hydronephrosis, stones, or suspicious masses. Contrast is seen within the cortex as well as nondilated collecting systems, likely due to split bolus of contrast injection for the scan. Bladder: Normal. Reproductive organs: Post hysterectomy Stomach, small bowel, and large bowel: Sliding-type hiatal hernia. The stomach is underdistended without oral contrast. Cannot exclude mural thickening. Similar appearance to proximal duodenum, underlying duodenitis cannot be excluded. Probable small fluid-filled duodenal diverticulum. The small bowel is generally normal in caliber distribution without evidence of obstruction. Large bowel demonstrates mild stool retention but otherwise generally normal in appearance. Appendix: Normal. Peritoneum and retroperitoneum: No ascites or pneumoperitoneum. No omental or mesenteric lesions. Lymph nodes: No enlarged lymph nodes. Blood vessels: Normal. No aneurysm. No evidence of venous thrombosis. Abdominal and pelvic wall: Unremarkable. Bones: No acute abnormality. IMPRESSION: The stomach is underdistended without oral contrast. Cannot exclude mural thickening. Similar appearance to proximal duodenum, underlying duodenitis cannot be excluded. Probable small fluid-filled duodenal diverticulum. If there is concern for gastric pathology, upper endoscopy is recommended. The gallbladder demonstrates nonspecific mural thickening or mild pericholecystic fluid. There is also minimally distended common bile duct up to about 7-8 mm. Ultrasound is recommended for further evaluation. Other incidental findings including benign cystic lesion in the liver. WSN: [id number] Ordering Physician: Meaghan Curiel Dictated By: Patricia Sequeira MD, I Dictated Date/Time: 06/02/22 2:22 pm Reviewed By: Patricia Sequeira MD, I Signed By: Patricia Sequeira MD, I Signed Date/Time: 06/02/22 2:22 pm Transcribed By: RISHABH Transcribed Date/Time: 06/02/22 1:54 pm Vital Signs Most recent to oldest [Reference Range]: 1 2 3 Oxygen Saturation [94-100 %] 100 % (06/02/22 5:10 PM) 97 % (06/02/22 11:23 AM) 97 % (06/02/22 11:19 AM) Pulse Rate [55-90 bpm] 67 bpm (06/02/22 5:10 PM) 69 bpm (06/02/22 11:23 AM) 64 bpm (06/02/22 11:19 AM) Blood Pressure [90-138/55-84 mm Hg] 178/65mm Hg *H* (06/02/22 5:10 PM) 167/69mm Hg *H* (06/02/22 11:23 AM) 167/69mm Hg *H* (06/02/22 11:19 AM) Respiratory Rate [16-30 br/min] 16 br/min (06/02/22 9:45 PM) 18 br/min (06/02/22 5:10 PM) 17 br/min (06/02/22 11:23 AM) Temperature [96.8-100.4 DegF] 97.8 DegF (06/02/22 5:10 PM) 98.3 DegF (06/02/22 11:23 AM) 97.8 DegF (06/02/22 11:19 AM) Mode of Delivery (Oxygen) Room air (06/02/22 5:10 PM) Room air (06/02/22 11:23 AM) Room air (06/02/22 11:19 AM) Blood pressure sites Arm, left (06/02/22 5:10 PM) Arm, left (06/02/22 11: AM) Arm, left (06/02/22 11:19 AM) Temperature Route Oral (06/02/22 5:10 PM) Oral (06/02/22 11:23 AM) Oral (06/02/22 11:19 AM) Social History Social History Type Response Smoking Status Former smoker; Other : 2ppd x 5y; Stopped at age: 34; entered on: 09/11/17 Sex History and physical note * Leland Last MD: PERFORM, SIGN, VERIFY Event Display: History and Physical Hospital Authored Date: Patient: REBECCA NAILS Age: 71 years Sex: Female : 1950 Associated Diagnoses: None Author: Leland Last MD Admission Information Consultation requested by: Meaghan GOINS Consulted physician: Dr. Morgan Reason for consultation: Abdominal pain History of Present Illness Patient is a 71-year-old female who has a past medical history of diabetes, hyperlipidemia, hypertension, asthma and mild dementia who presents to [facility] with nausea vomiting abdominal pain and discomfort and chest pain since last night. She reports that yesterday evening the pain developed and progressively got worse to the point where she was vomiting she reported she vomited twice and has ongoing nausea she also associated fevers and chills with this. Upon arriving at the emergency department she had a full set of labs which showed no leukocytosis mildly elevated lipase of84 normal T bili 8.8 and a normal ALT of 21 of note her AST has now been hemolyzed x2 additionally her alk phos is normal at 71. Imaging included a CT which showed nonspecific mural thickening and possible mild pericholecystic fluid with the CBD measuring 7 to 8 mm not consistent with the diagnosisof acute cholecystitis a ultrasound was then performed which showed the gallbladder without thickening of the wall with a negative sonographic Rcowe sign and no surrounding fluid but the gallbladderwas noted to be distended, of note neither exam showed any evidence of Cholelithiasis. As the patient persistently complained of her abdominal discomfort being in the right upper quadrant and despitethe scan being fairly equivocal for evidence of acute cholecystitis a surgical consultation was placed for evaluation of acute cholecystitis. Upon my assessment patient was fairly tearful she was very adamant about being discharged home she currently denied any nausea vomiting chest pain shortness of breath fevers or chills and said that she felt much better. Past Medical History Problem list All Problems Anxiety / SNOMED CT 24863921 / Confirmed Asthma / SNOMED CT 742669211 / Confirmed PFTs normal in 2010 Cataract / SNOMED CT 105081530 / Confirmed bilat Closed fracture of cervical vertebra without spinal cord injury / SNOMED CT 837531705 / Confirmed Chronic migraine / SNOMED CT 47121380 / Confirmed June 2013-the temporal artery biopsy was negative CT scan of the brain done on 05/14/13- unremarkable -admission in 2017 for Left sided weakness and associated headache, ruled out from CVA, likely Complex Migraine Cognitive decline / SNOMED CT 5366552019 / Confirmed -Mini-mental today: -Minimental today: Constipation / ICD-9-CM 564.00 / Confirmed Osteoarthritis / SNOMED CT 6631912991 / Confirmed Depression / ICD-9-CM 311 / Confirmed Diabetes mellitus / SNOMED CT 124073868 / Confirmed Venous embolism / SNOMED CT 692328681 / Confirmed 2006 Ex-cigarette smoker / SNOMED CT 984889195 / Confirmed Gastroesophageal reflux disease / SNOMED CT 453744414 / Confirmed Glaucoma / SNOMED CT 60996069 / Confirmed Dr. Fay H/O total hysterectomy with bilateral salpingo-oophorectomy (BSO) / SNOMED CT 1881776172 / Confirmed -Mention of it in Pelvic U/S. 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 In 2011 had dobutamine stress test, which showed no EKG findings suggestive of ischemia. 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 Impression is fibromyalgia and OA Neuropathy in diabetes / SNOMED CT 323651241 / Confirmed Non-compliant patient / SNOMED CT 5717429162 / Confirmed Obese class I / SNOMED CT 194148087401022 / Confirmed Obesity(actual BMI 38.36 as of 05/14/2013) / SNOMED CT 0901619622 / Confirmed Obstructive sleep apnea / SNOMED CT 482144076 / Confirmed -refuses CPAP Old myocardial infarction / SNOMED CT 8307139 / Confirmed reported by patient Osteoarthritis of right thumb / SNOMED CT 99143344 / Confirmed Osteoporosis / SNOMED CT 989879574 / Confirmed Respiratory failure requiring intubation / SNOMED CT 8905349908 / Confirmed -2ary to asthma exacerbation. At [facility] Tubular adenoma / SNOMED CT 64651872 / Confirmed Then again on . Had poor prep so it was recommended to repeat it in 1 year with 2 day of clears and 1 day of golytely. 2 medium sized adenomatous appearing polyps were removed Urinary incontinence / SNOMED CT 6337861668 / Confirmed Left rotator cuff calcific tendonitis / Confirmed external hemorrhoids / Confirmed Behavior finding / SNOMED CT 0113928 / Confirmed per 11-03 discharge ap moran threw phone at nurse Resolved: Anemia / SNOMED CT 475914829 Resolved: Postphlebitic syndrome / SNOMED CT 29766601 Resolved: Hemorrhage of rectum and anus / SNOMED CT 822425209 2007 Resolved: Urinary tract infectious disease / SNOMED CT 514486536 Canceled: Chronic pain / SNOMED CT 842705053 Canceled: CVA (cerebrovascular accident) / ICD-9-CM 434.91 Canceled: Colonoscopy / SNOMED CT 336393756 repeat in 5 yrs d/t tubular adenoma Canceled: H/O: hysterectomy / ICD-9-CM V88.01 Canceled: *[facility] [phone] 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 SRINIVAS SÁNCHEZ / SNOMED CT 969859739 Canceled: *[phone]-Direct Service Provider Marta Mack RN / SNOMED CT 642374700 Canceled: *[phone]-Direct Service Provider- Jcarlos Eric Philip / SNOMED CT 228844263 Canceled: *[phone]-Direct Service Provider Srinivas Sánchez / SNOMED CT 874934898 Canceled: *[phone] Direct Service Provider Sandra Facundo / SNOMED CT 338102223 Canceled: Meralgia paresthetica / SNOMED CT 644297467 Canceled: Pad / SNOMED CT 6166021045 Canceled: History of cholecystectomy / SNOMED CT 2637786507 laparoscopic Canceled: Disorder of thyroid gland / SNOMED CT 59009641 NOS Canceled: Bilateral tubal ligation / SNOMED CT 944890339 Canceled: Venous insufficiency NOS / ICD-9-CM 459.81 Canceled: h/o CAP Canceled: h/o endotracheal intubation due to asthma Canceled: diabetes Canceled: hypercholesterolemia Canceled: HTN Canceled: [facility] [id number] Allergies Allergic Reactions (Selected) Unknown Egg Allergy- Egg and tongue swells. Severity Not Documented Acetaminophen- No reactions were documented. Aspirin- Rash. Benadryl- Rash, vomiting. Latex- Swelling. Losartan Potassium- Spitting christophe blood. Motrin- No reactions were documented. Nuts- Rash. Penicillin- Itching, rash. Tetanus toxoid- Swelling. Current medications (Selected) Inpatient Medications Ordered Zofran Inj: 4 mg, Injection, IV Push, Once, PRN for Nausea & Vomiting, STAT, 06/02/22 11:12:00 EST Prescriptions Prescribed Calcium 600 +D oral tablet: 1 tablet, By Mouth, 2 times a day, calcium 600 and Vit D 400 units, # 90 tablet, 11 Refills, Maintenance, 10/11/21 10:03:00 EDT, [facility], Partial fill upon patient request if the prescription is for a schedule II opioid drug., 1 tablet By M... [employer] Lite Lancets: See Instructions, # 100 each, Refills 11, Tot. Refills 11, Maintenance, useas directed for Type 2 Diabetes Mellitus, E11.9, Test BS tid., 10/02/21 13:47:00 EDT, Compound, 135, cm, 09/29/21 10:30:00 EDT, Height [employer] Lite Monitor: See Instructions, # 1 each, Refills 0, Tot. Refills 0, Maintenance, use as directed for Type 2 Diabetes Mellitus, E11.9, Test BS tid., 07/05/21 12:45:00 EST, Compound, 135, cm, 09/21/20 11:34:00 EDT, Height [employer] Test Strips: See Instructions, # 100 each, Refills 11, Tot. Refills 11, Maintenance,use as directed for Type 2 Diabetes Mellitus, E11.9, Test BS tid., 10/02/21 13:47:00 EDT, Compound,135, cm, 09/29/21 10:30:00 EDT, Height Lantus Solostar Pen 100 units/mL subcutaneous solution: = 20 units, Subcutaneous Injection, Daily, daily in the morning Patient will need [employer] pill dispenser, # 10 mL, 11 Refills, Maintenance, 10/02/21 13:47:00 EDT, [facility], cm, 09/29/21 10:30:00 EDT, Height Pen [place], 30 G x 8 mm BD Ultra Fine II: See Instructions, # 30 each, Refills 11, Tot. Refills 11, Maintenance, to use with lantus daily, 10/02/21 13:47:00 EDT, Compound, 135, cm, 09/29/21 10:30:00EDT, Height Ventolin HFA 108 mcg/inh inhalation aerosol with adapter: 2 puffs, Inhalation, Every 6 hours, PRN NEEDED FOR WHEEZING SHORTNESS OF BREATH, # 18 Gm, 2 Refills, Maintenance, 05/09/22 18:39:00 EST, [facility], 135, cm, 10/11/21 9:20:00 EDT, Height atorvastatin 20 mg oral tablet: 1 tablet = 20 mg, By Mouth, Daily, Patient will need [employer] pilldispenser, # 30 tablet, 11 Refills, Maintenance, 10/02/21 13:46:00 EDT, Tablet, [facility],Partial fill upon patient request if the prescription is for a schedule II opioid d... clopidogrel 75 mg oral tablet: 1, tablet, By Mouth, Daily, ASA allergy Patient will need [employer] pill dispenser, # 30 tablet, Refills 11, Tot. Refills 11, Maintenance, 10/02/21 13:46:00 EDT, Route to Pharmacy Electronically, [facility], 135, cm, 09/29/21 10:30:00 EDT, He... gabapentin 100 mg oral capsule: 2, capsule, By Mouth, Daily in AM, ^2R1., # 60 capsule, Refills 2, Maintenance, 05/09/22 18:59:00 EST, Route to Pharmacy Electronically, [facility], 135, cm, 10/11/21 9:20:00 EDT, Height lisinopril 20 mg oral tablet: 1, tablet, By Mouth, Daily, Patient will need [facility] pill dispenser, # 28 tablet, Refills 11, Tot. Refills 11, Maintenance, 10/02/21 13:48:00 EDT, Route to Pharmacy Electronically, [facility], 135, cm, 09/29/21 10:30:00 EDT, Height Surgical History Procedure/Surgical Profile Colonoscopy abnormal ([id number]) on 03/03/2015 at 64 Years. Comments: 03/03/2015 10:06 ARTHUR Mauro MD, Aubrey polyps, repeat scope 2016 Biopsy of the temporal artery ([id number]) on 05/01/2013 at 62 Years. Comments: 09/13/2014 16:48 KENAN Albert MD, Bakari right colonoscopy on 12/16/2007 at 57 Years. Comments: 02/19/2012 8:10 Niesha King repeat in 5 yrs d/t tubular adenoma BSO - Total abdominal hysterectomy and bilateral salpingo-oophorectomy ([id number]). Arthroscopic repair of rotator cuff 03-SEP-2014 21:27:02<$> ([id number]). Comments: 09/13/2014 16:49 Bakari Smith MD right-Arthroscopic rotator cuff repair, Arthroscopic subacromial decompression, Arthroscopic distalclavicle excision. Social History Social History Alcohol Details: Use: Past. Stopped at age: 24 Years. Employment/School Details: Status: Disabled. 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 Exercise Details: Self assessment: Poor condition. Home/Environment Details: Living situation: Home with assistance. Lives with: Alone, has NURSING ASSISTANT. Other: Has daily VNA for med adminiistration.. Nutrition/Health Details: Diet: Regular. Sexual Details: Sexually involved in last 6 months: No. Substance Abuse Details: Use: Never. Tobacco Details: Former smoker, Other: 2ppd x 5y. Stopped at age: 34 Years. . Family History Family History Profile Brother Stroke: onset at 55 . Review of Systems Negative: Constitutional, Eye, Skin, Head/Neck, ENMT, Respiratory, Cardio, Gastrointestinal, Breast, Gynecologic, Genitourinary, Endocrine, Muscoloskeletal, Immunologic, Hematologic, Lymphatic, Neurologic, Psych reviewed and negative except as noted in HPI. Physical Examination Vital Signs Vitals : VITALS 06/02/2022 17:10 EST Temperature 97.8 DegF Temperature Route Oral Pulse Rate 67 bpm Respiratory Rate 18 br/min Systolic Blood Pressure 178 mm Hg H Diastolic Blood Pressure 65 mm Hg Blood pressure sites Arm, left Mean Arterial Pressure 103 mm Hg Pulse Pressure 113 mm Hg Oxygen Saturation 100 % Mode of Delivery (Oxygen) Room air . ??Physical Exam: Gen: No Acute Distress, Awake and Conversant Neuro: Alert and Oriented x 3 Head: Normocephalic, Atraumatic Eyes: Non-icteric, No conjunctival injection Cardiac: Regular rate and rhythm Resp: Even and unlabored breathing, no wheezing Abdomen: soft, non-distended?no rebound tenderness or guarding, right upper quadrant tenderness,positive Crowe sign Ext: No lower Extremity Edema Bilaterally, Demonstrates full active range of motion Skin: No rashes, warm and well perfused Results Review 7 day results Labs & Documents Laboratory : LABORATORY 06/02/2022 12:08 EST WBC 6.7 k/mm3 RBC 5.11 m/mm3 Hgb 13.4 Gm/dL Hct 42.5 % MCV 83.2 femtoliters MCH 26.2 pg L MCHC 31.5 g/dL L Platelet Count 204 k/mm3 RDW-SD 38.2 femtoliters MPV 11.4 femtoliters Nucleated RBC (Automated) 0.0 #/100 WBC'S Abs. NRBC 0.0 k/mm3 Abs. Neut 4.6 k/mm3 Abs. Lymph 1.2 k/mm3 Abs. Emmet 0.5 k/mm3 Abs. Eo 0.3 k/mm3 Abs. Baso 0.1 k/mm3 Neut % 69.3 % Lymph % 17.9 % Emmet % 6.8 % Eos % 4.7 % Baso % 0.8 % Imm Gran 0.5 % Abs. Imm Gran 0.0 k/mm3 Hold Blue Top SPECIMEN DISCARDED AFTER 4 HOURS. Sodium 135 mmol/L Potassium HEMOLYZED mmol/L Chloride 95 mmol/L L Bicarbonate Level 27 mmol/L Anion Gap 13 Glucose Level 190 mg/dL H BUN 12 mg/dL Creatinine-Blood 0.4 mg/dL L Estimated GFR Creatinine 109 ML/MIN/1.73 M2 Calcium 10.0 mg/dL Magnesium 2.0 mg/dL Alkaline Phosphatase HEMOLYZED units/L Lipase 84 units/L H AST (SGOT) HEMOLYZED units/L ALT (SGPT) HEMOLYZED units/L Bilirubin, Total 0.8 mg/dL Lactate 1.4 mmol/L High Sensitivity Troponin (HSTnT) 12 ng/L RESULT: CT Abd/Pelvis W/ IV Contrast Only CT Abd/Pelvis W/ IV Contrast Only Hx of Present Illness: Multiple complaints, initial for chest pain and sob beginning yesterday - now pt reporting r sided abd flank pain- rebound guarding appreciated denies nausea at this time; Reason: Other:; RLQ abdominal pain diffuse abd pain; Clinical Question(s): Other:; Order Comment: TECHNIQUE: Spiral CT through the abdomen and pelvis with IV contrast formatted in 3 planes. 85 cc of Omnipaque 300 was administered intravenously. This study was performed without oral contrast. Weight-based protocol using automatic tube modulation was used to optimize exposure parameters. CTDIvol Body: 12.00 mGy, DLP Body: 592 mGy*cm. COMPARISON: 04/17/2012 FINDINGS: Fisheries Manager View Findings, Lines and Tubes: None. Visualized Chest: Granuloma at the right lung base. No suspicious findings in the lung bases. No pleural or pericardial effusion. Normal cardiac size. Diaphragm: Normal. Liver: There is a lobular cystic lesion again seen in the right lobe, adjacent to the caudate. It has circumscribed margins and has a benign appearance. Current measurements are 2 x 1.5 x 0.9 cm. Otherwise no suspicious hepatic findings. Gallbladder: The gallbladder demonstrates nonspecific mural thickening or mild pericholecystic fluid. Ultrasound is recommended for further evaluation. Bile ducts: Minimally distended common bile duct up to about 7-8 mm. No calcification or definite duct stone. Spleen: Normal. Pancreas: Normal. Adrenal glands: Mild bilateral limb thickening, left greater than right. Kidneys and ureters: No hydronephrosis, stones, or suspicious masses. Contrast is seen within the cortex as well as nondilated collecting systems, likely due to split bolus of contrast injection for the scan. Bladder: Normal. Reproductive organs: Post hysterectomy Stomach, small bowel, and large bowel: Sliding-type hiatal hernia. The stomach is underdistended without oral contrast. Cannot exclude mural thickening. Similar appearance to proximal duodenum, underlying duodenitis cannot be excluded. Probable small fluid-filled duodenal diverticulum. The small bowel is generally normal in caliber distribution without evidence of obstruction. Large bowel demonstrates mild stool retention but otherwise generally normal in appearance. Appendix: Normal. Peritoneum and retroperitoneum: No ascites or pneumoperitoneum. No omental or mesenteric lesions. Lymph nodes: No enlarged lymph nodes. Blood vessels: Normal. No aneurysm. No evidence of venous thrombosis. Abdominal and pelvic wall: Unremarkable. Bones: No acute abnormality. IMPRESSION: The stomach is underdistended without oral contrast. Cannot exclude mural thickening. Similar appearance to proximal duodenum, underlying duodenitis cannot be excluded. Probable small fluid-filled duodenal diverticulum. If there is concern for gastric pathology, upper endoscopy is recommended. The gallbladder demonstrates nonspecific mural thickening or mild pericholecystic fluid. There is also minimally distended common bile duct up to about 7-8 mm. Ultrasound is recommended for further evaluation. Other incidental findings including benign cystic lesion in the liver. WSN: [id number] Ordering Physician: Meaghan Curiel RESULT: US RUQ US RUQ Hx of Present Illness: Multiple complaints, initial for chest pain and sob beginning yesterday - now pt reporting r sided abd flank pain- rebound guarding appreciated denies nausea at this time; Reason: Other:; Abdominal Pain; Clinical Question(s): Cholecystitis COMPARISON: CT the abdomen and pelvis dated June 02, 2022. FINDINGS: Liver: Normal in size and echotexture. No suspicious lesion. Smooth hepatic contour. Main portal vein patent with normal hepatopetal direction of flow. Gallbladder: Distended gallbladder without wall thickening or surrounding free fluid. Sonographic Crowe sign is negative. Biliary Tree: No intrahepatic or extrahepatic bile duct dilation is identified. Common duct measures: 0.8 cm. Pancreas: No abnormality in the visualized portions of the pancreas. Right kidney: 10.7 cm in length. Normal parenchymal echotexture and thickness. No hydronephrosis, stone or mass. IMPRESSION: Distended gallbladder without wall thickening or surrounding free fluid. Sonographic Crowe sign isnegative. Findings may be due to fasting status or potentially very early acute cholecystitis. HIDAscan could be considered if there is strong clinical suspicion of acute cholecystitis. WSN: [id number] Ordering Physician: Meaghan Curiel Impression and Plan Patient is a 71-year-old female who has a past medical history of diabetes, hyperlipidemia, hypertension, asthma and mild dementia who presents to [facility] with nausea vomiting abdominal pain and discomfort and chest pain since last night. labs showed no leukocytosis with a mildly elevated lipase of 84 normal T bili at 8.8 and a normal ALT of 21 of note her AST has now been hemolyzed x2 additionally her alk phos is normal at 71. CT which showed nonspecific mural thickening and possible mild pericholecystic fluid with the CBD measuring 7 to 8 mm, and the ultrasound showed a gallbladder without thickening of the wall with a negative sonographic Crowe sign and no surrounding pericholecystic fluid but it was noted to be mildly distended, of note neither exam showed any evidence of Cholelithiasis. Upon physical assessment the patient had a fairly soft nondistended abdomen, but specifically in the right upper quadrant the patient had fairly significant pain and had a a positive Crowe test. Despite this exam finding she continues endorse that her belly pain was improved and she overall felt hungry additionally her pain was not exactly associated with food intake, and this had never happened to her previously. In the setting of the CT findings being equivocal with no evidence of cholelithiasis there is a chance she could have a calculus cholecystitis although unlikely. Without an overwhelming laboratory or radiographic evidence of cholecystitis in a patient who now reports to be pain-free and is hungry, we would recommend p.o. trialing the patient if she toleratesher diet she then can be discharged with recommendations to follow a low-fat diet with plans to foll ow-up with us in clinic to discuss the possibility of an elective cholecystectomy. If the diet instigates her pain then the patient may require admission and eventual cholecystectomy. Plan/recommendations ??? No acute surgical intervention indicated at this time ??? Recommend p.o. trialing the patient if tolerates diet can go home on a low fiber diet with plans to follow-up as an outpatient ??? If patient fails please contact the Blue surgery service to discuss further need for surgical intervention With questions please reach out to blue surgery service This patient was discussed with Dr. Paul Note * Ignacio Padgett DO: PERFORM, SIGN, VERIFY Event Display: Patient Education Handout Authored Date: * Ignacio Padgett DO: PERFORM Event Display: Patient Education Leaflets Authored Date: Epigastric Pain (Uncertain Cause) ?? [id number] Dolor epig??strico (causa incierta) El dolor epig??strico es dolor en la parte superior del abdomen. Puede ser un signo de enfermedad. Las causas frecuentes incluyen las siguientes: ??? Reflujo de ??cido (el ??cido del est??darryn sube hacia el es??fago) ??? Gastritis (irritaci??n del revestimiento del est??darryn) La mayor??a de las veces, es provocada por la administraci??n de aspirinas o antinflamatorios no esteroides (TOM) gallo ibuprofeno, por la bacteria H.??Pylori o por el consumo frecuente de alcohol. ?lcera p??ptica ??? Inflamaci??n del p??ncreas ??? C??lculos biliares ??? Infecci??n en la ves??cula biliar El dolor puede ser sordo o quemante. Puede irradiarse hacia el pecho o la espalda. Puede valerio otros s??ntomas, gallo eructos, sensaci??n de hinchaz??n en el est??darryn, c??licos o dolor de hambre. Puede valerio p??rdida de peso o poco apetito, n??useas o v??mitos. Puesto que el motivo de tipton dolor es incierto, quiz??s se necesiten pruebas adicionales. En algunos casos el m??dico tratar?? la enfermedad m??s probable para estuardo si mejora antes de hacer pruebas adicionales. Cuidados en el hogar Medicamentos ??? Los anti??cidos ayudan a neutralizar los ??cidos normales en el est??darryn. Si no le gusta el l??quido, puede probar las formas masticables. Es posible que note que algunos le funcionan mejor que otros. El uso excesivo puede provocar diarrea o estre??imiento. Llame a tipton proveedor si tiene preguntas o inquietudes sobre cualquiera de dl medicamentos o dl efectos secundarios. ??? Los bloqueadores de ??cido o (bloqueadores??H2) disminuyen la producci??n de ??cido. Algunos de estos son la cimetidina y la famotidina. ??? Los inhibidores de ??cido o inhibidores de la bomba de protones disminuyen la producci??n de ??cido de manera diferente de los bloqueadores. Le puede resultar que funcionan mejor, melissa tardan un poco m??s en surtir efecto.?? Algunos de ellos son omeprazol, lansoprazol, pantoprazol, rabeprazol y esomeprazol. Muchos de estos medicamentos son de venta melvina o se puede conseguir tipton f??rmula gen??charbel. ??? Martorell un anti??cido de 30 a 60??minutos despu??s de comer y a la horade acostarse, melissa no a la misma hora que un bloqueador de ??cido. ??? Trate de no silas antinflamatorios no esteroides (TOM). La aspirina tambi??n puede provocar problemas, melissa si la luann para el coraz??n o por otro motivo m??dico, hable con tipton m??dico antes de suspenderla. Alimentaci??n ??? Si ciertos alimentos parecen provocar dolor, trate de evitarlos. Los s??ntomas clint gastritis pueden empeorar con ciertas comidas. Limite o evite las comidas grasosas, fritas o muycondimentadas, as?? gallo el caf??, el chocolate, las mentas y los alimentos muy ??cidos gallo los tomates o las frutas y los jugos c??tricos (naranja, toronja, ziegler??n). ??? Coma despacio y mastique iker antes de tragar. Los s??ntomas de la gastritis pueden empeorar con ciertos alimentos. ??? Evite beber alcohol. Bemiss puede irritar el est??darryn. Si le resulta dif??cil dejar el alcohol, pida recursos de tratamiento a tipton m??dico. ??? No ingiera cafe??na ni tabaco. Bemiss puede retrasar la recuperaci??n??y empeorar el problema. ??? Trate de comer comidas gabe??as con bocadillos entre felix y otra. Evite comer mucho antes de irse a dormir. ??? No coma roger 2 o 3??horas antes de acostarse. ??? Levante la cabecera de la cama si sufre s??ntomas roger la noche. Bemiss bruce que los ??cidos se acumulen en el es??fago. ?? Visitas de control Asista a las visitas de control con tipton proveedor de atenci??n m??dica seg??n le hayan indicado. ?? Cu??ndo buscar atenci??n m??dica Llame a tipton proveedor de atenci??n m??dica de inmediato ante cualquiera de los siguientes s??ntomas:??? Dolor de est??darryn que empeora o se mueve hacia el lado derecho inferior del abdomen ??? Aparece dolor de pecho, o si el dolor empeora o se extiende hacia el pecho, la espalda, el nicholas, el hombro o el brazo ??? V??mitos frecuentes (no puede retener l??quidos en el est??darryn) ??? Juvencio en lasheces o en el v??ness (color rojizo o negruzco) ??? Siente debilidad o mareos, se desmaya o tiene problemas para respirar ??? Fiebre de 100.4?F (38?C) o m??s sg, o seg??n lo que le haya indicado tipton proveedor de atenci??n m??dica ??? Hinchaz??n en el abdomen ??? S??ntomas que empeoran o nuevos s??ntomas ?? Last Reviewed Date: 2019 ?? [employer]. Todos los derechos reservados. Esta informaci??n no pretende sustituir la atenci??n m??dica profesional. S??lo tipton m??dico puede diagnosticar y tratar un problema de rufino. ?? * Ignacio Padgett DO: PERFORM Event Display: Patient Education Leaflets Authored Date: [id number] Chest Pain, Uncertain Cause ?? [id number] Causas inciertas de dolor de pecho El dolor de pecho puede producirse por numerosas razones. En algunos casos, no se puede determinar la causa. Si tipton afecci??n no parece grave y el dolor no parece venir del coraz??n, tipton proveedor de atenci??n m??dica puede recomendar un seguimiento de cerca. A veces, los signos de un problema grave tardan m??s en aparecer. Muchas afecciones no relacionadas con el coraz??n pueden causar dolor de pecho. Por ejemplo: ??? Musculoesquel??ailin. Costocondritis, felix inflamaci??n de los tejidos alrededor de las costillas que puede ocurrir por trauma o lesiones por uso excesivo, o felix distensi??n de los m??sculos de lapared tor??cica. ??? Respiratorias. Neumon??a, pulm??n colapsado (neumot??rax) o inflamaci??n del re vestimiento del pecho y los pulmones (pleuritis). ??? Gastrointestinales. Reflujo esof??gico, acidez estomacal, ??lceras o enfermedad de la ves??cula biliar. ??? Ansiedad y ataques de p??peter ??? Compresi??n e inflamaci??n de un nervio ??? Afecciones poco frecuentes gallo aneurisma a??rtico o disecci??n a??rtica (felix hinchaz??n de la arteria rena que sale del coraz??n o un desgarro en la pared de la arteria) o embolia pulmonar (co??gulos de juvencio en los pulmones). Cuidados en el hogar Luego de tipton visita, preste atenci??n a las siguientes recomendaciones: ??? Descanse hoy y evite toda actividad agotadora. ??? Martorell el medicamento recetado seg??n le hayan indicado. ??? Est?? atento acualquier dolor de pecho recurrente y observe cualquier cambio ?? Visita de seguimiento Programe felix visita de control con tipton proveedor de atenci??n m??dica si no empieza a sentirse mejoren las siguientes 24??horas, o seg??n lo que le indiquen. ?? Cu??ndo llamar al?? 911 Llame al?? 911 si ocurre algo de lo siguiente: ??? Cambio en el tipo de dolor: se siente diferente,se montana vuelto m??s grave, dura m??s o comienza a esparcirse hacia el hombro, el brazo, el nicholas, lamand??bula o la espalda ??? Falta de aire o dolor creciente al respirar ??? Debilidad, mareos o desmayos ??? Ritmo card??aco acelerado ??? Sensaci??n de aplastamiento en el pecho ??? Tos con cantidadabundante de juvencio ?? Cu??ndo buscar atenci??n m??dica Llame a tipton proveedor de atenci??n m??dica de inmediato ante cualquiera de los siguientes signos o s??ntomas: ??? Tos con expulsi??n de esputo (flema) de color oscuro o con un poco de juvencio ??? Fiebre de 100.4?F (38?C) o superior, o seg??n le haya indicado tipton proveedor de atenci??n m??dica ??? Dolor, enrojecimiento o hinchaz??n de felix pierna ?? Last Reviewed Date: 2021 ?? [id number] [employer]. Todos los derechos reservados. Esta informaci??n no pretende sustituir la atenci??n m??dica profesional. S??lo tipton m??dico puede diagnosticar y tratar un problema de rufino. ?? * SPowerscrialexis , CIS S: TRANSCSAMI Treviño MD, Ana: VERIFY Event Display: Result: Authored Date: [id number] Chest 2 Views Frontal and Lat Hx of Present Illness: Multiple complaints, initial for chest pain and sob beginning yesterday - now pt reporting r sided abd flank pain- rebound guarding appreciated denies nausea at this time; Reason: Other:; Shortness of Breath, Fever; Clinical Question(s): Pneumonia COMPARISON: 12/09/2016 FINDINGS: LINES AND TUBES: None. LUNGS AND PLEURA: Clear lungs. Normal pulmonary vascularity. No pleural effusion. No pneumothorax. HEART, MEDIASTINUM AND DANIELLA: Heart is normal in size. Aortic arch atherosclerosis. BONES AND SOFT TISSUES: No acute abnormality. IMPRESSION: No acute abnormality. WSN: [id number] Ordering Physician: Meaghan Curiel Dictated By: Ana Treviño MD Dictated Date/Time: 06/02/22 3:52 pm Reviewed By: Ana Treviño MD Signed By: Ana Treviño MD Signed Date/Time: 06/02/22 3:52 pm Transcribed By: RISHABH Transcribed Date/Time: 06/02/22 3:35 pm * BHSPowerscribe , CIS S: TRANSCRIBE Tra Eaton MD: VERIFY Event Display: Result: Authored Date: [id number] US RUQ Hx of Present Illness: Multiple complaints, initial for chest pain and sob beginning yesterday - now pt reporting r sided abd flank pain- rebound guarding appreciated denies nausea at this time; Reason: Other:; Abdominal Pain; Clinical Question(s): Cholecystitis COMPARISON: CT the abdomen and pelvis dated June 02, 2022. FINDINGS: Liver: Normal in size and echotexture. No suspicious lesion. Smooth hepatic contour. Main portal vein patent with normal hepatopetal direction of flow. Gallbladder: Distended gallbladder without wall thickening or surrounding free fluid. Sonographic Crowe sign is negative. Biliary Tree: No intrahepatic or extrahepatic bile duct dilation is identified. Common duct measures: 0.8 cm. Pancreas: No abnormality in the visualized portions of the pancreas. Right kidney: 10.7 cm in length. Normal parenchymal echotexture and thickness. No hydronephrosis, stone or mass. IMPRESSION: Distended gallbladder without wall thickening or surrounding free fluid. Sonographic Crowe sign isnegative. Findings may be due to fasting status or potentially very early acute cholecystitis. HIDAscan could be considered if there is strong clinical suspicion of acute cholecystitis. WSN: [id number] Ordering Physician: Meaghan Curiel Dictated By: Tra Eaton MD Dictated Date/Time: 06/02/22 4:14 pm Reviewed By: Tra Eaton MD Signed By: Tra Eaton MD Signed Date/Time: 06/02/22 4:14 pm Transcribed By: RISHABH Transcribed Date/Time: 06/02/22 4:[address] Abdomen and Pelvis W contrast IV * Ernestine , DEBORAH S: YESSICA Sequeira MD, Patricia I: VERIFY Event Display: Result: Authored Date: CT Abd/Pelvis W/ IV Contrast Only Hx of Present Illness: Multiple complaints, initial for chest pain and sob beginning yesterday - now pt reporting r sided abd flank pain- rebound guarding appreciated denies nausea at this time; Reason: Other:; RLQ abdominal pain diffuse abd pain; Clinical Question(s): Other:; Order Comment: TECHNIQUE: Spiral CT through the abdomen and pelvis with IV contrast formatted in 3 planes. 85 cc of Omnipaque 300 was administered intravenously. This study was performed without oral contrast. Weight-based protocol using automatic tube modulation was used to optimize exposure parameters. CTDIvol Body: 12.00 mGy, DLP Body: 592 mGy*cm. COMPARISON: 04/17/2012 FINDINGS: Fisheries Manager View Findings, Lines and Tubes: None. Visualized Chest: Granuloma at the right lung base. No suspicious findings in the lung bases. No pleural or pericardial effusion. Normal cardiac size. Diaphragm: Normal. Liver: There is a lobular cystic lesion again seen in the right lobe, adjacent to the caudate. It has circumscribed margins and has a benign appearance. Current measurements are 2 x 1.5 x 0.9 cm. Otherwise no suspicious hepatic findings. Gallbladder: The gallbladder demonstrates nonspecific mural thickening or mild pericholecystic fluid. Ultrasound is recommended for further evaluation. Bile ducts: Minimally distended common bile duct up to about 7-8 mm. No calcification or definite duct stone. Spleen: Normal. Pancreas: Normal. Adrenal glands: Mild bilateral limb thickening, left greater than right. Kidneys and ureters: No hydronephrosis, stones, or suspicious masses. Contrast is seen within the cortex as well as nondilated collecting systems, likely due to split bolus of contrast injection for the scan. Bladder: Normal. Reproductive organs: Post hysterectomy Stomach, small bowel, and large bowel: Sliding-type hiatal hernia. The stomach is underdistended without oral contrast. Cannot exclude mural thickening. Similar appearance to proximal duodenum, underlying duodenitis cannot be excluded. Probable small fluid-filled duodenal diverticulum. The small bowel is generally normal in caliber distribution without evidence of obstruction. Large bowel demonstrates mild stool retention but otherwise generally normal in appearance. Appendix: Normal. Peritoneum and retroperitoneum: No ascites or pneumoperitoneum. No omental or mesenteric lesions. Lymph nodes: No enlarged lymph nodes. Blood vessels: Normal. No aneurysm. No evidence of venous thrombosis. Abdominal and pelvic wall: Unremarkable. Bones: No acute abnormality. IMPRESSION: The stomach is underdistended without oral contrast. Cannot exclude mural thickening. Similar appearance to proximal duodenum, underlying duodenitis cannot be excluded. Probable small fluid-filled duodenal diverticulum. If there is concern for gastric pathology, upper endoscopy is recommended. The gallbladder demonstrates nonspecific mural thickening or mild pericholecystic fluid. There is also minimally distended common bile duct up to about 7-8 mm. Ultrasound is recommended for further evaluation. Other incidental findings including benign cystic lesion in the liver. WSN: [id number] Ordering Physician: Meaghan Curiel Dictated By: Patricia Sequeira MD, I Dictated Date/Time: 06/02/22 2:22 pm Reviewed By: Patricia Sequeira MD, I Signed By: Patricia Sequeira MD, I Signed Date/Time: 06/02/22 2:22 pm Transcribed By: RISHABH Transcribed Date/Time: 06/02/22 1:54 pm Patient Care team information Care Team Personnel Name: Gavi Arthur RN Position: [facility] PCO RN Member Role: Primary Care Nurse Name: Malgorzata Ugalde RN Position: [facility] SN RN Member Role: Primary Care Nurse Name: Tsering Casey RN Position: [facility] RN Member Role: Primary Care Nurse Name: Bakari Albert MD Position: [facility] Primary Care Physician Member Role: PCP Address: Address: [address] [place] [phone] [place] Name: Aliza Lemon RN Position: [facility] RN Member Role: Primary Care Nurse Name: Tsering Johnson RN Position: [facility] RN Member Role: Primary Care [facility] Attending Position: [facility] ED Attendings Patient Name: Ignacio Padgett DO Position: [facility] ED Medicine MD Member Role: Admitting Physician Address: Address: [address] [place], [place] [id number] [place] [address]- [place] Name: Bibiana Ponce RN Position: [facility] ED RN W/OE and Tasks Member Role: Patient Care Provider Name: Carline Barragan Position: [facility] ED TA [facility] Member Role: Patient Care Provider Care Team Related Persons Name: JCARLOS DOYLE Address: home [address] [facility] [address] [place] [address] Name: GRACE MADRIGAL Address: [place] [address] Name: BERENICE DELA CRUZ
--- OUTSIDE RECORDS SUMMARY | 2023-01-15 16:48 | XMS_ITS | Continuity of Care Document ---
Author Name Unknown Organization [facility] Address Unknown Care Team Providers Care General Assembler Name Role Phone Bety KNIGHT, Ameena Primary Care Physician [place] [facility] [place] 08/11[place]21 [facility] Attending Physician: Ameena Alebrt MD Admitting Physician: Ameena Albert MD Allergies, Adverse Reactions, Alerts Substance Reaction [...] Refills, Maintenance, 07/05/21 12:45:00 EST, Tablet, [id number], Partial fill upon patient request if the prescription is for a schedule II opioid drug., 135, cm, 09/21/20 11:34:00 EDT, Height Start Date: 07/05/21 Status: Ordered clopidogrel 75 mg oral tablet 1, tablet, By Mouth, Daily, ASA allergy, # 30 tablet, Refills 11, Tot. Refills 11, Maintenance, 07/05/21 12:44:00 EST, Route to Pharmacy Electronically, [facility]/pharmacy #[id number], 135, cm, 09/21/20 11:34:00EDT, Height Start [...] 11 Refills, Maintenance, 07/05/21 12:45:00 EST, Solution, [facility]/pharmacy #[id number], 135, cm, 09/21/20 11:34:00 EDT, Height Start Date: 07/05/21 Stop Date: 06/30/22 Status: Ordered lisinopril 20 mg oral tablet 1, tablet, By Mouth, Daily, # 28 tablet, Refills 11, Tot. Refills 11, Maintenance, 07/05/21 12:45:00 EST, Route to Pharmacy Electronically, [facility]/pharmacy #[id number], 135, cm, 09/21/20 11:34:00 EDT, Height Start Date: 07/05/21 Status: Ordered Pen [place], 30 G x 8 mm BD Ultra [...] nfirmed) 15 Active Osteoarthritis(Confirmed) Active Osteoporosis(Confirmed) Active *[id number] Care Partn er Opal Dong(Confirmed) Active Non-compliant patient(Confirmed) Active Respiratory failure requirin g intubation(Confirmed) 2004 Active Tubular adenoma(Confirmed) 17 11/2007 Active Urinary incontinence(Confirmed) Active Venous embolism(Confirmed) 18 Active 1PFTs normal in 2010 2recurrent 3bilat 67238's 5-Echo at [facility] on 06-21-14, 6Dr. Ingis 7Read Cardiology note form 12-20-15 8-reported by patient. In 2011 had dobutamine stress test, which showed no EKG findings suggestive of ischemia. 6-Jigm-vzrzuz today: 10Lt shoulder 11CT scan of the brain done on 05/14/13- unremarkable 12March 2013-the temporal artery biopsy was negative 13Evaluated by Rheumatology ([facility] Impression is fibromyalgia and OA 14-refuses CPAP 15reported by patient 16-2ary to asthma exacerbation. At [facility] 17Then again on . Had poor prep so it was recommended to repeat it in 1 year with 2 day of clears and 1 day of golytely. 2 medium sized adenomatous appearing polyps were removed [id number] Social History Social History Type Response Smoking Status Former smoker; Other : 2ppd x 5y; Stopped at age: 34; entered on: 09/11/17 Sex
--- OUTSIDE RECORDS SUMMARY | 2023-01-15 16:48 | XMS_ITS | Continuity of Care Document ---
Author Name Unknown Organization [facility] Address Unknown Care Team Providers Care Web Development Intern Name Role Phone Bety KNIGHT, Ameena Primary Care Physician Encounter [facility] [place] Date(s): 06/28/21 - 07/28/21 [facility] Allergies, Adverse Reactions, Alerts Substance Reaction [...] Refills, Maintenance, 07/05/21 12:45:00 EST, Tablet, [id number], Partial fill upon patient request if the prescription is for a schedule II opioid drug., 135, cm, 09/21/20 11:34:00 EDT, Height Start Date: 07/05/21 Status: Ordered clopidogrel 75 mg oral tablet 1, tablet, By Mouth, Daily, ASA allergy, # 30 tablet, Refills 11, Tot. Refills 11, Maintenance, 07/05/21 12:44:00 EST, Route to Pharmacy Electronically, [facility]/pharmacy #[id number], 135, cm, 09/21/20 11:34:00EDT, Height Start [...] 11 Refills, Maintenance, 07/05/21 12:45:00 EST, Solution, [facility]/pharmacy #[id number], 135, cm, 09/21/20 11:34:00 EDT, Height Start Date: 07/05/21 Stop Date: 06/30/22 Status: Ordered lisinopril 20 mg oral tablet 1, tablet, By Mouth, Daily, # 28 tablet, Refills 11, Tot. Refills 11, Maintenance, 07/05/21 12:45:00 EST, Route to Pharmacy Electronically, [facility]/pharmacy #[id number], 135, cm, 09/21/20 11:34:00 EDT, Height Start Date: 07/05/21 Status: Ordered Pen [place], 30 G x 8 mm BD Ultra [...] nfirmed) 15 Active Osteoarthritis(Confirmed) Active Osteoporosis(Confirmed) Active *[id number] Care Partn er Opal Umana(Confirmed) Active Non-compliant patient(Confirmed) Active Respiratory failure requirin g intubation(Confirmed) 16 2004 Active Tubular adenoma(Confirmed) 17 11/2007 Active Urinary incontinence(Confirmed) Active Venous embolism(Confirmed) 18 Active 1PFTs normal in 2010 2recurrent 3bilat 62826's 5-Echo at [facility] on 06-21-14, 6Dr. Ingis 7Read Cardiology note form 12-20-15 8-reported by patient. In 2011 had dobutamine stress test, which showed no EKG findings suggestive of ischemia. 2-Llmj-kgkyzs today: 10Lt shoulder 11CT scan of the brain done on 05/14/13- unremarkable 2013-the temporal artery biopsy was negative 13Evaluated by Rheumatology ([facility] Impression is fibromyalgia and OA 14-refuses CPAP 15reported by patient 16-2ary to asthma exacerbation. At [facility] 17Then again on . Had poor prep so it was recommended to repeat it in 1 year with 2 day of clears and 1 day of golytely. 2 medium sized adenomatous appearing polyps were removed [id number] Social History Social History Type Response Smoking Status Former smoker; Other : 2ppd x 5y; Stopped at age: 34; entered on: 09/11/17 Sex
--- OUTSIDE RECORDS SUMMARY | 2023-01-15 16:48 | XMS_ITS | Continuity of Care Document ---
Author Name Unknown Organization [facility] Address Unknown Care Team Providers Care Carpenter Form Name Role Phone Bety KNIGHT, Ameena Primary Care Physician [place] [facility] [place] 06/22/21 - 07/22/21 [facility] Allergies, Adverse Reactions, Alerts Substance Reaction Severity Status acetaminophen Active penicillin ITCHING, RASH Active aspirin rash Active Motrin Active Losartan Potassium 1 spitting christophe blood Active tetanus toxoid SWELLING Active Benadryl RASH, VOMITING Active Egg Allergy [...] Refills, Maintenance, 07/05/21 12:45:00 EST, [facility]t, [id number], Partial fill upon patient request if the prescription is for a schedule II opioid drug., 135, cm, 09/21/20 11:34:00 EDT, Height Start Date: 07/05/21 Status: Ordered clopidogrel 75 mg oral tablet 1, tablet, By Mouth, Daily, ASA allergy, # 30 tablet, Refills 11, Tot. Refills 11, Maintenance, 07/05/21 12:44:00 EST, Route to Pharmacy Electronically, [facility]/pharmacy #[id number], 135, cm, 09/21/20 11:34:00EDT, Height Start [...] 11 Refills, Maintenance, 07/05/21 12:45:00 EST, Solution, [facility]/pharmacy #[id number], 135, cm, 09/21/20 11:34:00 EDT, Height Start Date: 07/05/21 Stop Date: 06/30/22 Status: Ordered lisinopril 20 mg oral tablet 1, tablet, By Mouth, Daily, # 28 tablet, Refills 11, Tot. Refills 11, Maintenance, 07/05/21 12:45:00 EST, Route to Pharmacy Electronically, [facility]/pharmacy #[id number], 135, cm, 09/21/20 11:34:00 EDT, Height Start Date: 07/05/21 Status: Ordered Pen [place], 30 G x 8 mm BD Ultra [...] nfirmed) 15 Active Osteoarthritis(Confirmed) Active Osteoporosis(Confirmed) Active *[id number] Care Partn er Opal [place]mana(Confirmed) Active Non-compliant patient(Confirmed) Active Respiratory failure requirin g intubation(Confirmed) 2004 Active Tubular adenoma(Confirmed) 17 11/2007 Active Urinary incontinence(Confirmed) Active Venous embolism(Confirmed) 18 Active 1PFTs normal in 2010 2recurrent 3bilat 50913's 5-Echo at [facility] on 06-21-14, 6Dr. Ingis 7Read Cardiology note form 12-20-15 8-reported by patient. In 2011 had dobutamine stress test, which showed no EKG findings suggestive of ischemia. 8-Wfbu-uvkftg today: 10Lt shoulder 11CT scan of the brain done on 05/14/13- unremarkable 12Junch 2013-the temporal artery biopsy was negative 13Evaluated by Rheumatology ([facility] and [facility]). Impression is fibromyalgia and OA 14-refuses CPAP 15reported by patient 16-2ary to asthma exacerbation. At [facility] 17Then again on . Had poor prep so it was recommended to repeat it in 1 year with 2 day of clears and 1 day of golytely. 2 medium sized adenomatous appearing polyps were removed [id number] Social History Social History Type Response Smoking Status Former smoker; Other : 2ppd x 5y; Stopped at age: 34; entered on: 09/11/17 Sex
--- OUTSIDE RECORDS SUMMARY | 2023-01-15 16:48 | XMS_ITS | Continuity of Care Document ---
Author Name Unknown Organization [facility] Address [address] [place] [address]- Care Team Providers Care Coiler Operator Name Role Phone Bety KNIGHT, Ameena Primary Care Physician [place] [facility] [place] 12/21/21 - 01/20/22 [facility] [address]- [place] Allergies, Adverse Reactions, Alerts Substance Reaction [...] 11/14/2214:05:00 EDT, Aerosol, Route to Pharmacy Electronically, [id number], [facility], 135,cm, 10/11/21 9:20:00 EDT, Height Start Date: 11/14/21 Status: Ordered atorvastatin 20 mg oral tablet 1 tablet = 20 mg, By Mouth, Daily, Patient will need [employer] pill dispenser, # 30 tablet, 11 Refills, Maintenance, 10/02/21 13:46:00 EDT, Tablet, [facility], Partial fill upon patient request if the prescription is for a schedule II opioid d... Start Date: 10/02/21 Status: Ordered Calcium 600 +D oral tablet 1 tablet, By Mouth, 2 times a day, calcium 600 and Vit D 400 units, # 90 tablet, 11 Refills, Maintenance, 10/11/21 10:03:00 EDT, [facility], Partial fill upon patient request if the prescription is for a schedule II opioid drug., 1 tablet By M... Start Date: 10/11/21 Status: Ordered clopidogrel 75 mg oral tablet 1, tablet, By Mouth, Daily, ASA allergy Patient will need [employer] pill dispenser, # 30 tablet, Refills 11, Tot. Refills 11, Maintenance, 10/02/21 13:46:00 EDT, Route to Pharmacy Electronically, [facility], 135, cm, 09/29/21 10:30:00 EDT, He... [...] 12/28/21 12:43:00 EDT, Route to Pharmacy Electronically, [facility], 135, cm, 10/11/21 9:20:00 EDT, Height Start Date: 12/28/21 Status: Ordered Lantus Solostar Pen 100 units/mL subcutaneous solution = 20 units, Subcutaneous Injection, Daily, daily in the morning Patient will need [employer] pill dispenser, # 10 mL, 11 Refills, Maintenance, 10/02/21 13:47:00 EDT, Solution, [facility], 135,cm, 09/29/21 10:30:00 EDT, Height Start Date: 10/02/21 Stop Date: 09/27/22 Status: Ordered lisinopril 20 mg oral tablet 1, tablet, By Mouth, Daily, Patient will need [employer] pill dispenser, # 28 tablet, Refills 11, Tot. Refills 11, Maintenance, 10/02/21 13:48:00 EDT, Route to Pharmacy Electronically, [facility], 135, cm, 09/29/21 10:30:00 EDT, Height Start Date: 10/02/21 Status: Ordered Pen [place], 30 G x 8 mm BD Ultra [...] nfirmed) 17 Active Osteoarthritis(Confirmed) Active Osteoporosis(Confirmed) Active *[id number] Care Partn er Opal Umana(Confirmed) Active Non-compliant patient(Confirmed) Active Respiratory failure requirin g intubation(Confirmed) 2004 Active Tubular adenoma(Confirmed) 19 11/2007 Active Urinary incontinence(Confirmed) Active Venous embolism(Confirmed) 20 Active 1PFTs normal in 2010 2recurrent 3bilat 88619's 5-Echo at [facility] on 06-21-14, 6Dr. Ingis 7Read Cardiology note form 12-20-15 8-reported by patient. In 2011 had dobutamine stress test, which showed no EKG findings suggestive of ischemia. 9-Minimental today: 65-Eaym-dbvgpr today: 11Lt shoulder 12-admission in 2016 for Left sided weakness and associated headache, ruled out from CVA, likely Complex Migraine 13CT scan of the brain done on 05/14/13- unremarkable 14March 2013-the temporal artery biopsy was negative 15Evaluated by [facility]umatology ([facility] Impression is fibromyalgia and OA 16-refuses CPAP 17reported by patient 18-2ary to asthma exacerbation. At [facility] 19Then again on . Had poor [...] Team Personnel Name: Ameena Albert MD Address: [address] [place] [id number]
--- OUTSIDE RECORDS SUMMARY | 2023-01-15 16:48 | XMS_ITS | Continuity of Care Document ---
Author Name Unknown Organization [facility] Address [address] [place] [address]- Care Team Providers Care Granulator Tender Name Role Phone Bety KNIGHT, Ameena Primary Care Physician [place] [facility] [place] 08[place]22 [facility] [address] [place] [address]- Attending Physician: Alonzo BERRY, Ronel Schmitz Allergies, Adverse Reactions, Alerts Substance Reaction Severity [...] prescription is for a schedule II opioid . Start Date: 08/19/22 Status: Ordered Calcium 600 +D oral tablet 1 tablet, By Mouth, 2 times a day, calcium 600 and Vit D 400 units, # 90 tablet, 11 Refills, Maintenance, 10/11/21 10:03:00 EDT, [facility], Partial fill upon patient request if the prescription is for a schedule II opioid drug., 1 tablet By M... Start Date: 10/11/21 Status: Ordered clopidogrel 75 mg oral tablet 1, tablet, By Mouth, Daily, ASA allergy Patient will need [employer] pill dispenser, # 30 tablet, Refills 11, Tot. Refills 11, Maintenance, 10/02/21 13:46:00 EDT, Route to Pharmacy Electronically, [facility], 135, cm, 09/29/21 10:30:00 EDT, He... [...] 07/19/22 17:31:00 EDT, Route to Pharmacy Electronically, [facility], 135, cm, 06/04/22 14:59:00 EST, Height, 55.9, kg, 06/04/22 15:07:00 EST, Dry Weight Start Date: 07/19/22 Status: Ordered Lantus Solostar Pen 100 units/mL subcutaneous solution = 20 units, Subcutaneous Injection, Daily, daily in the morning Patient will need [employer] pill dispenser, # 10 mL, 11 Refills, Maintenance, 10/02/21 13:47:00 EDT, Solution, [facility], 135,cm, 09/29/21 10:30:00 EDT, Height Start Date: 10/02/21 Stop Date: 09/27/22 Status: Ordered lisinopril 20 mg oral tablet 1, tablet, By Mouth, Daily, Patient will need [employer] pill dispenser, # 28 tablet, Refills 11, Tot. Refills 11, Maintenance, 10/02/21 13:48:00 EDT, Route to Pharmacy Electronically, [facility], 135, cm, 09/29/21 10:30:00 EDT, Height Start Date: 10/02/21 Status: Ordered Pen [place], 30 G x 8 mm BD Ultra [...] 0 Refills, Maintenance, 08/16/22 11:08:00 EDT, Tablet, [facility], Partial fill upon patient request if [...] ^BULK, # 18 Gm, 2 Refills, Maintenance, 07/19/22 13:21:00 EDT, [facility], 135, cm, 06/04/22 14:59:00 EST, Height, 55.9, kg, 06/04/22 15:07:00 EST, Dry Weight Start Date: 07/19/22 Status: Ordered Problem List Condition Confirmation Course [...] Active Osteoarthritis Confirmed Active Osteoporosis Confirmed Active [id number] 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 Ingis 7Read Cardiology note form 12-20-15 8-reported by patient. In 2011 had dobutamine stress test, which showed no EKG findings suggestive of ischemia. 9-Minimental today: 39-Avdh-techta today: 11Lt shoulder 12-admission in 2017 for Left sided weakness and associated headache, ruled out from CVA, likely Complex Migraine 13CT scan of the brain done on 05/14/13- unremarkable 14March 2013-the temporal artery biopsy was negative 15Evaluated by Rheumatology ([facility] and [facility]). Impression is fibromyalgia and OA 16-refuses CPAP 17reported by patient 18-2ary to asthma exacerbation. At [facility] 19Then again on . Had poor [...] Team Personnel Name: Gavi Arthur RN Position: [facility] PCO RN Member Role: Primary Care Nurse Name: aMlgorzata Ugalde RN Position: [facility] SN RN Member Role: Primary Care Nurse Name: Tsering Casey RN Position: S RN Member Role: Primary Care Nurse Name: Ameena Albert MD Position: [facility] Primary Care Physician Member Role: PCP Address: Address: [address] [place] [id number]- Name: Aliza Lemon RN Position: S RN Member Role: Primary Care Nurse Name: Tsering Johnson RN Position: S RN Member Role: Primary Care Nurse Care Team Related Persons Name: JCARLOS DOYLE Address: home [address] [facility] [address] [place] [address] Name: GRACE MADRIGAL Address: [place] [address] Name: BERENICE DELA CRUZ
--- OUTSIDE RECORDS SUMMARY | 2023-01-15 16:48 | XMS_ITS | Continuity of Care Document ---
Author Name Unknown Organization [facility] Address [address] [place] [address]- Care Team Providers Care Academic Support Coordinator Name Role Phone Bety KNIGHT, Bakari Primary Care Physician ( [phone] Encounter [facility] Date(s): 12/09/22 - 01/08/23 [facility] [address]- Attending Physician: Rafa Toney Admitting Physician: AdmtrRafa Referring Physician: Admtr ArEna Allergies, Adverse Reactions, Alerts Substance Reaction Severity [...] Refills, Maintenance, 12/10/22 16:06:00 EDT, [facility]t, [id number], Partial fill upon patient request if the prescription is for a schedule II opioid drug., 135, cm, 12/09/22 11:51:00 EDT, Height,... Start Date: 12/10/22 Status: Ordered clopidogrel 75 mg oral tablet 1, tablet, By Mouth, Daily, Hx of CVA and ASA allergy, # 90 tablet, Refills 3, Tot. Refills 3, Maintenance, 12/10/22 16:55:00 EDT, Route to Pharmacy Electronically, [facility]/pharmacy #[id number], please note that diagnosis was changed and [...] 12/10/22 16:08:00 EDT, Route to Pharmacy Electronically, [facility]/pharmacy #[id number], 135, cm, 12/09/22 11:51:00 EDT, Height, 55.9, kg, 06/04/22 15:07:00 EST, Dry Weight Start Date: 12/10/22 Stop Date: 12/05/23 Status: Ordered Lantus Solostar Pen 100 units/mL subcutaneous solution = 20 units, Subcutaneous Injection, Daily, daily in the morning, # 15 mL, 2 Refills, Maintenance, 12/10/22 16:12:00 EDT, Solution, [facility]/pharmacy #[id number], 135, cm, 12/09/22 11:51:00 EDT, Height, 55.9, kg, 06/04/22 15:07:00 EST, Dry Weight Start Date: 12/10/22 Stop Date: 09/06/23 Status: Ordered lisinopril 20 mg oral tablet 1, tablet, By Mouth, Daily, # 90 tablet, Refills 3, Tot. Refills 3, Maintenance, 12/10/22 16:06:00 EDT, Route to Pharmacy Electronically, [facility]/pharmacy #[id number], 135, cm, 12/09/22 11:51:00 EDT, Height, 55.9, kg, 06/04/22 15:07:00 EST, Dry Weight Start Date: 12/10/22 Stop Date: 12/05/23 Status: Ordered Pen [place], 30 G x 8 mm BD Ultra [...] tablet, 3 Refills, Maintenance, 12/10/22 16:10:00 EDT, [facility]/pharmacy #[id number], Partial fill upon patient request [...] Replace Required Details, Route to Pharmacy Electronically, [facility]/pharmacy #[id number], Partial fill upon... 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 Ingis 7 She has multiple chest discomfort sensations none of which are particularly anginal in nature. Shehas had multiple stress tests in the past all of which is been negative. 8Read Cardiology note form 8-24-16 9-reported by patient. In 2011 had dobutamine stress test, which showed no EKG findings suggestive of ischemia. 10-Minimental today: 16-Hrwu-ckoycv today: 12Lt shoulder 13-admission in 2017 for Left sided weakness and associated headache, ruled out from CVA, likely Complex Migraine 14CT scan of the brain done on 05/14/13- unremarkable 15March 2013-the temporal artery biopsy was negative 16Evaluated by Rheumatology ([facility] and [facility] Impression is fibromyalgia and OA 17-refuses CPAP 18-2ary to asthma exacerbation. At [facility] 19Then again on . Had poor prep so it was recommended to repeat it in 1 year with 2 day of clears and 1 day of golytely. 2 medium sized adenomatous appearing polyps were removed Social History Social History Type Response Smoking Status Former smoker, quit more than 30 days ago entered on: 12/09/22 Sex Cardiology * Event Display: Non Cardiovascular Results Authored Date: Radiology * Bakari Albert MD: REVIEW Event Display: X-Ray Hand/Wrist, Non- Authored Date: Patient Care team information Care Team Personnel Name: Gavi Arthur RN Position: [facility] AMB Nurse Member Role: Primary Care Nurse Name: Malgorzata Ugalde RN Position: [facility] SN RN Member Role: Primary Care Nurse Name: Tsering Casey RN Position: S RN Member Role: Primary Care Nurse Name: Bakari Albert MD Position: [facility] Physician - Primary Care Member Role: PCP Address: Address: [address] [place] [id number]- Name: Aliza Lemon RN Position: S RN Member Role: Primary Care Nurse Name: Tsering Johnson RN Position: S RN Member Role: Primary Care Nurse Care Team Related Persons Name: JCARLOS DOYLE Address: home [address] [facility] [address] [place] [address] Name: JUAN M SILVA Name: GRACE MADRIGAL Address: [place] [address] Name: BERENICE DELA CRZU
--- OUTSIDE RECORDS SUMMARY | 2023-01-15 16:48 | XMS_ITS | Continuity of Care Document ---
Author Name Unknown Organization [facility] Address [address] [place] [address]- Care Team Providers Care Pole Peeling Machine Operator Name Role Phone Bety KNIGHT, Ameena Primary Care Physician [facility]counter [facility] Date(s): 04/13/20 - 05/13/20 [facility] [address] [place] [address]- Allergies, Adverse Reactions, Alerts Substance Reaction Severity [...] 12:26:00 EDT, Aerosol, Route to Pharmacy Electronically, [id number], [facility], 135, cm, 07/23/18... Start [...] 16:16:00 EDT, Route to Pharmacy Electronically, [facility], 135, cm, 07/23/18 11:47:00 EDT, Height, 84.3, kg, 07/23/18 11:47:00 EDT, Dry Weight Start Date: 01/20/20 Status: Ordered omeprazole 20 mg oral enteric coated capsule 1 capsule, By Mouth, 2 times a day, # 56 capsule, 0 Refills, Maintenance, 01/20/20 16:16:00 EDT, [facility], 135, cm, 07/23/18 11:47:00 EDT, Height, 84.3, kg, 07/23/18 11:47:00 EDT, DryWeight Start Date: 01/20/20 Status: Ordered Pen [place], 30 G x 8 mm BD Ultra [...] nfirmed) 14 Active Osteoarthritis(Confirmed) Active Osteoporosis(Confirmed) Active *[id number] Care Partn er Sandra Loredo(Confirmed) Active Non-compliant patient(Confirmed) Active Respiratory failure requirin g intubation(Confirmed) 2004 Active Tubular adenoma(Confirmed) 16 11/2007 Active Urinary incontinence(Confirmed) Active Venous embolism(Confirmed) 17 Active 1PFTs normal in 2010 2recurrent 3bilat 52927's 5-Echo at [facility] on 06-21-14, 6Dr. Ingis 7Read Cardiology note form 12-20-15 8-reported by patient. In 2011 had dobutamine stress test, which showed no EKG findings suggestive of ischemia. 9Lt shoulder 10CT scan of the brain done on 05/14/13- unremarkable 2013-the temporal artery biopsy was negative 12Evaluated by Rheumatology ([facility] and [facility]). Impression is fibromyalgia and OA 13-refuses CPAP 14reported by patient 15-2ary to asthma exacerbation. At [facility] 16Then again on . Had poor prep so it was recommended to repeat it in 1 year with 2 day of clears and 1 day of golytely. 2 medium sized adenomatous appearing polyps were removed [id number] Social History Social History Type Response Smoking Status Former smoker; Other : 2ppd x 5y; Stopped at age: 34; entered on: 09/11/17 Sex
--- OUTSIDE RECORDS SUMMARY | 2023-01-15 16:48 | XMS_ITS | Continuity of Care Document ---
Author Name Unknown Organization [facility] Address Unknown Care Team Providers Care Tafe Registrar Name Role Phone Bety KNIGHT, Ameena Primary Care Physician [place] [facility] Date(s): 09/18/21 - 10/18/21 [facility] Allergies, Adverse Reactions, Alerts Substance [...] mg, By Mouth, Daily, Patient will need [employer] pill dispenser, # 30 tablet, 11 Refills, Maintenance, 10/02/21 13:46:00 EDT, Tablet, [facility], Partial fill upon patient request if the prescription is for a schedule II opioid d... Start Date: 10/02/21 Status: Ordered Calcium 600 +D oral tablet 1 tablet, By Mouth, 2 times a day, calcium 600 and Vit D 400 units, # 90 tablet, 11 Refills, Maintenance, 10/11/21 10:03:00 EDT, [facility], Partial fill upon patient request if the prescription is for a schedule II opioid drug., 1 tablet By M... Start Date: 10/11/21 Status: Ordered clopidogrel 75 mg oral tablet 1, tablet, By Mouth, Daily, ASA allergy Patient will need [facility] pill dispenser, # 30 tablet, Refills 11, Tot. Refills 11, Maintenance, 10/02/21 13:46:00 EDT, Route to Pharmacy Electronically, [facility], 135, cm, 09/29/21 10:30:00 EDT, He... [...] 10/09/21 20:56:00 EDT, Route to Pharmacy Electronically, [facility], Partial fill upon patient request if the pr... Start Date: 10/09/21 Stop Date: 11/08/21 Status: Ordered Lantus Solostar Pen 100 units/mL subcutaneous solution = 20 units, Subcutaneous Injection, Daily, daily in the morning Patient will need [facility] pill dispenser, # 10 mL, 11 Refills, Maintenance, 10/02/21 13:47:00 EDT, Solution, [facility], 135,cm, 09/29/21 10:30:00 EDT, Height Start Date: 10/02/21 Stop Date: 09/27/22 Status: Ordered lisinopril 20 mg oral tablet 1, tablet, By Mouth, Daily, Patient will need [facility] pill dispenser, # 28 tablet, Refills 11, Tot. Refills 11, Maintenance, 10/02/21 13:48:00 EDT, Route to Pharmacy Electronically, [facility], 135, cm, 09/29/21 10:30:00 EDT, Height Start Date: 10/02/21 Status: Ordered Pen [place], 30 G x 8 mm BD Ultra [...] nfirmed) 17 Active Osteoarthritis(Confirmed) Active Osteoporosis(Confirmed) Active *[id number] Care Partn er Opal Umana(Confirmed) Active Non-compliant patient(Confirmed) Active Respiratory failure requirin g intubation(Confirmed) 2004 Active Tubular adenoma(Confirmed) 19 11/2007 Active Urinary incontinence(Confirmed) Active Venous embolism(Confirmed) 20 Active 1PFTs normal in 2010 2recurrent 3bilat 52672's 5-Echo at [facility] on 06-21-14, 6Dr. Ingis 7Read Cardiology note form 24-16 8-reported by patient. In 2011 had dobutamine stress test, which showed no EKG findings suggestive of ischemia. 9-Minimental today: 56-Xete-zomybk today: 11Lt shoulder 12-admission in 2017 for Left sided weakness and associated headache, ruled out from CVA, likely Complex Migraine 13CT scan of the brain done on 05/14/13- unremarkable 14March 2013-the temporal artery biopsy was negative 15Evaluated by Rheumatology ([facility] and [facility]). Impression is fibromyalgia and OA 16-refuses CPAP 17reported by patient 18-2ary to asthma exacerbation. At [facility] 19Then again on . Had poor [...]
--- OUTSIDE RECORDS SUMMARY | 2023-01-15 16:48 | XMS_ITS | Continuity of Care Document ---
Author Name Unknown Organization [facility] Address Unknown Care Team Providers Care Sole Rounding Machine Operator Name Role Phone Bety KNIGHT, Ameena Primary Care Physician [place] [facility]13[place] 12/13/21 [facility] Allergies, Adverse Reactions, Alerts Substance Reaction Severity [...] 11/14/2214:05:00 EDT, Aerosol, Route to Pharmacy Electronically, NCPDP_[id number], [facility], 135,cm, 10/11/21 9:20:00 EDT, Height Start Date: 11/14/21 Status: Ordered atorvastatin 20 mg oral tablet 1 tablet = 20 mg, By Mouth, Daily, Patient will need [facility] pill dispens[facility], # 30 tablet, 11 Refills, Maintenance, 10/02/21 13:46:00 EDT, Tablet, [facility], Partial fill upon patient request if the prescription is for a schedule II opioid d... Start Date: 10/02/21 Status: Ordered Calcium 600 +D oral tablet 1 tablet, By Mouth, 2 times a day, calcium 600 and Vit D 400 units, # 90 tablet, 11 Refills, Maintenance, 10/11/21 10:03:00 EDT, [facility], Partial fill upon patient request if the prescription is for a schedule II opioid drug., 1 tablet By M... Start Date: 10/11/21 Status: Ordered clopidogrel 75 mg oral tablet 1, tablet, By Mouth, Daily, ASA allergy Patient will need [employer] pill dispenser, # 30 tablet, Refills 11, Tot. Refills 11, Maintenance, 10/02/21 13:46:00 EDT, Route to Pharmacy Electronically, [facility], 135, cm, 09/29/21 10:30:00 EDT, [...] 11/30/21 13:29:00 EDT, Route to Pharmacy Electronically, [facility]... Start Date: 11/30/21 Stop Date: 12/30/21 Status: Ordered Lantus Solostar Pen 100 units/mL subcutaneous solution = 20 units, Subcutaneous Injection, Daily, daily in the morning Patient will need [employer] pill dispenser, # 10 mL, 11 Refills, Maintenance, 10/02/21 13:47:00 EDT, Solution, [facility], 135,cm, 09/29/21 10:30:00 EDT, Height Start Date: 10/02/21 Stop Date: 09/27/22 Status: Ordered lisinopril 20 mg oral tablet 1, tablet, By Mouth, Daily, Patient will need [employer] pill dispenser, # 28 tablet, Refills 11, Tot. Refills 11, Maintenance, 10/02/21 13:48:00 EDT, Route to Pharmacy Electronically, [facility], 135, cm, 09/29/21 10:30:00 EDT, Height Start Date: 10/02/21 Status: Ordered Pen [place], 30 G x 8 mm BD Ultra [...] nfirmed) 17 Active Osteoarthritis(Confirmed) Active Osteoporosis(Confirmed) Active *[id number] Care Partn er Opaldora Lópeze(Confirmed) Active Non-compliant patient(Confirmed) Active Respiratory failure requirin g intubation(Confirmed) 2004 Active Tubular adenoma(Confirmed) 19 11/2007 Active Urinary incontinence(Confirmed) Active Venous embolism(Confirmed) 20 Active 1PFTs normal in 2010 2recurrent 3bilat 31851's 5-Echo at [facility] on 06-21-14, 6Dr. Ingis 7Read Cardiology note form 12-20-15 8-reported by patient. In 2011 had dobutamine stress test, which showed no EKG findings suggestive of ischemia. 9-Minimental today: 72-Ycvr-uzkfzx today: 11Lt shoulder 12-admission in 2016 for Left sided weakness and associated headache, ruled out from CVA, likely Complex Migraine 13CT scan of the brain done on 05/14/13- unremarkable 14March 2013-the temporal artery biopsy was negative 15Evaluated by Rheumatology ([facility] and [facility]). Impression is fibromyalgia [...]
--- OUTSIDE RECORDS SUMMARY | 2023-01-15 16:48 | XMS_ITS | Continuity of Care Document ---
Author Name Unknown Organization [facility] Address [address] [place] [address]- Care Team Providers Care Tower Truck Driver Name Role Phone Bety KNIGHT, Ameena Primary Care Physician Encounter [facility] Date(s): 09/19/20 - 10/19/20 [facility]/[address] [address]- Allergies, Adverse Reactions, Alerts Substance Reaction Severity [...] TETANUS FOR WHICH SHE IMMEDIATELY SWE Medications clopidogrel 75 mg oral tablet 1, tablet, By Mouth, Daily, ASA allergy, # 30 tablet, Refills 3, Tot. Refills 3, Maintenance, 08/31/20 16:44:00 EDT, Route to Pharmacy Electronically, [facility] #[id number], 135, cm, 08/31/20 16:06:00 EDT, Height Start Date: 08/31/20 Status: Ordered Freestyle Lite Lancets See Instructions, # 100 each, Refills 11, Tot. Refills 11, Maintenance, use as directed for Type 2 Diabetes Mellitus, E11.9, Test BS tid., 08/31/20 16:50:00 EDT, Compound, 135, cm, 08/31/20 16:06:00 EDT, Height Start Date: 08/31/20 Stop Date: 08/26/21 Status: Ordered Freestyle Lite Monitor See Instructions, # 1 each, Refills 0, Tot. Refills 0, Maintenance, use as directed for Type 2 Diabetes Mellitus, E11.9, Test BS tid., 08/31/20 16:50:00 EDT, Compound, 135, cm, 08/31/20 16:06:00 EDT,Height Start Date: 08/31/20 Stop Date: 09/30/20 Status: Ordered Freestyle Lite Test Strips See Instructions, # 100 each, Refills 11, Tot. Refills 11, Maintenance, use as directed for Type 2 Diabetes Mellitus, E11.9, Test BS tid., 08/31/20 16:50:00 EDT, Compound, 135, cm, 08/31/20 16:06:00 EDT, Height Start Date: 08/31/20 Stop Date: 08/26/21 Status: Ordered Lantus Solostar Pen 100 units/mL subcutaneous solution = 10 units, Subcutaneous Injection, Daily, daily in the morning, # 10 mL, 0 Refills, Maintenance, 08/31/20 16:48:00 EDT, Solution, [facility]/pharmacy #[id number], 135, cm, 08/31/20 16:06:00 EDT, Height Start Date: 08/31/20 Stop Date: 09/30/20 Status: Ordered lisinopril 20 mg oral tablet 1, tablet, By Mouth, Daily, # 28 tablet, Refills 3, Tot. Refills 3, Maintenance, 09/21/20 12:59:00 EDT, Route to Pharmacy Electronically, [facility]/pharmacy #[id number], 135, cm, 09/21/20 11:34:00 EDT, Height Start Date: 09/21/20 Status: Ordered Pen [place], 30 G x 8 mm BD Ultra Fine II See Instructions, # 30 each, Refills 11, Tot. Refills 11, Maintenance, to use with lantus daily, 08/31/20 16:49:00 EDT, Compound, 135, cm, 08/31/20 16:06:00 EDT, Height Start Date: 08/31/20 Status: Ordered Problem List Condition Effective Dates [...] nfirmed) 15 Active Osteoarthritis(Confirmed) Active Osteoporosis(Confirmed) Active *[id number] Care Partn er Sandra Loredo(Confirmed) Active Non-compliant patient(Confirmed) Active Respiratory failure requirin g intubation(Confirmed) 2004 Active Tubular adenoma(Confirmed) 17 11/2007 Active Urinary incontinence(Confirmed) Active Venous embolism(Confirmed) 18 Active 1PFTs normal in 2010 2recurrent 3bilat 51012's 5-Echo at [facility] on 06-21-14, 6Dr. Ingis 7Read Cardiology note form 12-20-15 8-reported by patient. In 2011 had dobutamine stress test, which showed no EKG findings suggestive of ischemia. 6-Yicr-xglsbe today: 10Lt shoulder 11CT scan of the brain done on 05/14/13- unremarkable 12March 2013-the temporal artery biopsy was negative 13Evaluated by [facility]umatology ([facility] and [facility]). Impression is fibromyalgia and OA 14-refuses CPAP 15reported by patient 16-2ary to asthma exacerbation. At [facility] 17Then again on . Had poor prep so it was recommended to repeat it in 1 year with 2 day of clears and 1 day of golytely. 2 medium sized adenomatous appearing polyps were removed [id number] Social History Social History Type Response Smoking Status Former smoker; Other : 2ppd x 5y; Stopped at age: 34; entered on: 09/11/17 Sex
--- OUTSIDE RECORDS SUMMARY | 2023-01-15 16:48 | XMS_ITS | Continuity of Care Document ---
Author Name Unknown Organization [facility] Address [address] [place] [address]- Care Team Providers Care Squeak Rattle And Leak Repairer Name Role Phone Bety KNIGHT, Ameena Primary Care Physician Encounter [facility] Date(s): 11/12/22 - 12/12/22 [facility]/[place] [address]- [place] Allergies, Adverse Reactions, Alerts Substance Reaction Severity Status acetaminophen Active Motrin Active penicillin ITCHING, RASH Active aspirin rash Active tetanus toxoid SWELLING Active Benadryl RASH, VOMITING Active Latex SWELLING [...] Refills, Maintenance, 12/10/22 16:06:00 EDT, Tablet, [id number], Partial fill upon patient request if the prescription is for a schedule II opioid drug., 135, cm, 12/09/22 11:51:00 EDT, Height,... Start Date: 12/10/22 Status: Ordered clopidogrel 75 mg oral tablet 1, tablet, By Mouth, Daily, Hx of CVA and ASA allergy, # 90 tablet, Refills 3, Tot. Refills 3, Maintenance, 12/10/22 16:55:00 EDT, Route to Pharmacy Electronically, [facility]/pharmacy #[id number], please note that diagnosis was changed and [...] 12/10/22 16:08:00 EDT, Route to Pharmacy Electronically, [facility]/pharmacy #[id number], 135, cm, 12/09/22 11:51:00 EDT, Height, 55.9, kg, 06/04/22 15:07:00 EST, Dry Weight Start Date: 12/10/22 Stop Date: 12/05/23 Status: Ordered Lantus Solostar Pen 100 units/mL subcutaneous solution = 20 units, Subcutaneous Injection, Daily, daily in the morning, # 15 mL, 2 Refills, Maintenance, 12/10/22 16:12:00 EDT, Solution, [facility]/pharmacy #[id number], 135, cm, 12/09/22 11:51:00 EDT, Height, 55.9, kg, 06/04/22 15:07:00 EST, Dry Weight Start Date: 12/10/22 Stop Date: 09/06/23 Status: Ordered lisinopril 20 mg oral tablet 1, tablet, By Mouth, Daily, # 90 tablet, Refills 3, Tot. Refills 3, Maintenance, 12/10/22 16:06:00 EDT, Route to Pharmacy Electronically, [facility]/pharmacy #[id number], 135, cm, 12/09/22 11:51:00 EDT, Height, 55.9, kg, 06/04/22 15:07:00 EST, Dry Weight Start Date: 12/10/22 Stop Date: 12/05/23 Status: Ordered Pen [place], 30 G x 8 mm BD Ultra [...] tablet, 3 Refills, Maintenance, 12/10/22 16:10:00 EDT, [facility]/pharmacy #[id number], Partial fill upon patient request if [...] Replace Required Details, Route to Pharmacy Electronically, [facility]/pharmacy #[id number], Partial fill upon... Start Date: 12/10/22 Status: Ordered Ventolin HFA 108 mcg/inh inhalation aerosol with adapter 2 puffs, Inhalation, Every 6 hours, PRN NEEDED FOR WHEEZING SHORTNESS OF BREATH ^BULK, # 18 Gm, 2 Refills, Maintenance, 12/10/22 16:06:00 EDT, [facility]/pharmacy #[id number], 135, cm, 12/09/22 11:51:00 EDT, Height, [...] Active Osteoarthritis Confirmed Active Osteoporosis Confirmed Active [id number] Investigations Manager Kayce Byrne Confirmed Active Respiratory failure requiring intubation 18 Confirmed 2004 Active Tubular adenoma 19 Confirmed 11/2007 Active Urinary incontinence Confirmed Active Venous embolism 20 Confirmed Active 1PFTs normal in 2010 2recurrent 3bilat 52062's 5-Echo at [facility] on 06-21-14, 6Dr. Ingis 7 She has multiple chest discomfort sensations none of which are particularly anginal in nature. Shehas had multiple stress tests in the past all of which is been negative. 8Read Cardiology note form 8-24-16 9-reported by patient. In 2011 had dobutamine stress test, which showed no EKG findings suggestive of ischemia. 10-Minimental today: 75-Ibte-adzanx today: 12Lt shoulder 13-admission in 2017 for Left sided weakness and associated headache, ruled out from CVA, likely Complex Migraine 14CT scan of the brain done on 05/14/13- unremarkable 15March 2013-the temporal artery biopsy was negative 16Evaluated by Rheumatology ([facility] and [facility]). Impression is fibromyalgia and OA 17-refuses CPAP 18-2ary to asthma exacerbation. At [facility] 19Then again on . Had poor [...] Team Personnel Name: Gavi Arthur RN Position: [facility] AMB Nurse Member Role: Primary Care Nurse Name: Malgorzata Ugalde RN Position: [facility] SN RN Member Role: Primary Care Nurse Name: Tsering Casey RN Position: S RN Member Role: Primary Care Nurse Name: Ameena Albert MD Position: S Physician - Primary Care Member Role: PCP Address: Address: [address] [place] [id number] Name: Aliza Lemon RN Position: S RN Member Role: Primary Care Nurse Name: Tsering Johnson RN Position: S RN Member Role: Primary Care Nurse Care Team Related Persons Name: DOYLEJCARLOS Kramer Address: home [address] [facility] [address] [place] [address] Name: JUAN M SILVA Name: GRACE MADRIGAL Address: [place] [address] Name: BERENICE DELA CRUZ CUSTOMER BUSINESS MANAGER
--- OUTSIDE RECORDS SUMMARY | 2023-01-15 16:48 | XMS_ITS | Continuity of Care Document ---
Author Name Unknown Organization [facility] Address Unknown Care Team Providers Care Bull Driver Name Role Phone Bety KNIGHT, Ameena Primary Care Physician Encounter [facility] Date(s): 09/27/21 - 10/27/21 [facility] Allergies, Adverse Reactions, Alerts [...] mg, By Mouth, Daily, Patient will need [employer] pill dispenser, # 30 tablet, 11 Refills, Maintenance, 10/02/21 13:46:00 EDT, Tablet, [facility], Partial fill upon patient request if the prescription is for a schedule II opioid d... Start Date: 10/02/21 Status: Ordered Calcium 600 +D oral tablet 1 tablet, By Mouth, 2 times a day, calcium 600 and Vit D 400 units, # 90 tablet, 11 Refills, Maintenance, 10/11/21 10:03:00 EDT, [facility], Partial fill upon patient request if the prescription is for a schedule II opioid drug., 1 tablet By M... Start Date: 10/11/21 Status: Ordered clopidogrel 75 mg oral tablet 1, tablet, By Mouth, Daily, ASA allergy Patient will need [employer] pill dispenser, # 30 tablet, Refills 11, Tot. Refills 11, Maintenance, 10/02/21 13:46:00 EDT, Route to Pharmacy Electronically, [facility], 135, cm, 09/29/21 10:30:00 EDT, He... [...] 10/09/21 20:56:00 EDT, Route to Pharmacy Electronically, [facility], Partial fill upon patient request if the pr... Start Date: 10/09/21 Stop Date: 11/08/21 Status: Ordered Lantus Solostar Pen 100 units/mL subcutaneous solution = 20 units, Subcutaneous Injection, Daily, daily in the morning Patient will need [employer] pill dispenser, # 10 mL, 11 Refills, Maintenance, 10/02/21 13:47:00 EDT, Solution, [facility], 135,cm, 09/29/21 10:30:00 EDT, Height Start Date: 10/02/21 Stop Date: 09/27/22 Status: Ordered lisinopril 20 mg oral tablet 1, tablet, By Mouth, Daily, Patient will need [employer] pill dispenser, # 28 tablet, Refills 11, Tot. Refills 11, Maintenance, 10/02/21 13:48:00 EDT, Route to Pharmacy Electronically, [facility], 135, cm, 09/29/21 10:30:00 EDT, Height Start Date: 10/02/21 Status: Ordered Pen [place], 30 G x 8 mm BD Ultra [...] nfirmed) 17 Active Osteoarthritis(Confirmed) Active Osteoporosis(Confirmed) Active *[id number] Care Partn er Opal Umana(Confirmed) Active Non-compliant patient(Confirmed) Active Respiratory failure requirin g intubation(Confirmed) 2004 Active Tubular adenoma(Confirmed) 19 11/2007 Active Urinary incontinence(Confirmed) Active Venous embolism(Confirmed) 20 Active 1PFTs normal in 2010 2recurrent 3bilat 77845's 5-Echo at [facility] on 06-21-14, 6Dr. Ingis 7Read Cardiology note form 24-16 8-reported by patient. In 2011 had dobutamine stress test, which showed no EKG findings suggestive of ischemia. 9-Minimental today: 26-Dwgg-bqnjen today: 11Lt shoulder 12-admission in 2017 for Left sided weakness and associated headache, ruled out from CVA, likely Complex Migraine 13CT scan of the brain done on 05/14/13- unremarkable 14March 2013-the temporal artery biopsy was negative 15Evaluated by Rheumatology ([facility] and [facility] Impression is fibromyalgia and OA 16-refuses CPAP 17reported by patient 18-2ary to asthma exacerbation. At [facility] 19Then again on . Had poor [...]
--- OUTSIDE RECORDS SUMMARY | 2023-01-15 16:48 | XMS_ITS | Continuity of Care Document ---
Author Name Unknown Organization [facility] Address Unknown Care Team Providers Care Armor Senior Sergeant Name Role Phone Bety KNIGHT, Ameena Primary Care Physician [place] [facility] [place]11/21 [facility] Allergies, Adverse Reactions, Alerts Substance [...] Refills, Maintenance, 07/05/21 12:45:00 EST, Tablet, [id number], Partial fill upon patient request if the prescription is for a schedule II opioid drug., 135, cm, 09/21/20 11:34:00 EDT, Height Start Date: 07/05/21 Status: Ordered clopidogrel 75 mg oral tablet 1, tablet, By Mouth, Daily, ASA allergy, # 30 tablet, Refills 11, Tot. Refills 11, Maintenance, 07/05/21 12:44:00 EST, Route to Pharmacy Electronically, [facility]/pharmacy #[id number], 135, cm, 09/21/20 11:34:00EDT, Height [...] 11 Refills, Maintenance, 07/05/21 12:45:00 EST, Solution, [facility]/pharmacy #[id number], 135, cm, 09/21/20 11:34:00 EDT, Height Start Date: 07/05/21 Stop Date: 06/30/22 Status: Ordered lisinopril 20 mg oral tablet 1, tablet, By Mouth, Daily, # 28 tablet, Refills 11, Tot. Refills 11, Maintenance, 07/05/21 12:45:00 EST, Route to Pharmacy Electronically, [facility]/pharmacy #[id number], 135, cm, 09/21/20 11:34:00 EDT, Height Start Date: 07/05/21 Status: Ordered Pen [place], 30 G x 8 mm BD Ultra [...] nfirmed) 15 Active Osteoarthritis(Confirmed) Active Osteoporosis(Confirmed) Active *[id number] Care Partn er Opal Umana(Confirmed) Active Non-compliant patient(Confirmed) Active Respiratory failure requirin g intubation(Confirmed) 16 2004 Active Tubular adenoma(Confirmed) 17 11/2007 Active Urinary incontinence(Confirmed) Active Venous embolism(Confirmed) 18 Active 1PFTs normal in 2010 2recurrent 3bilat 27654's 5-Echo at [facility] on 06-21-14, 6Dr. Ingis 7Read Cardiology note form 12-20-15 8-reported by patient. In 2011 had dobutamine stress test, which showed no EKG findings suggestive of ischemia. 8-Dafn-yjvkxf today: 10Lt shoulder 11CT scan of the brain done on 05/14/13- unremarkable 12Junch 2013-the temporal artery biopsy was negative 13Evaluated by Rheumatology ([facility] and [facility]). Impression is fibromyalgia and OA 14-refuses CPAP 15reported by patient 16-2ary to asthma exacerbation. At [facility] 17Then again on . Had poor prep so it was recommended to repeat it in 1 year with 2 day of clears and 1 day of golytely. 2 medium sized adenomatous appearing polyps were removed [id number] Social History Social History Type Response Smoking Status Former smoker; Other : 2ppd x 5y; Stopped at age: 34; entered on: 09/11/17 Sex
--- OUTSIDE RECORDS SUMMARY | 2023-01-15 16:48 | XMS_ITS | Continuity of Care Document ---
Author Name Unknown Organization [facility] Address Unknown Care Team Providers Care Sec Reporting Consultant Name Role Phone Bety KNIGHT, Ameena Primary Care Physician Encounter [facility] [place] Date(s): 10/05/21 - 11/04/21 [facility] Allergies, Adverse Reactions, Alerts Substance Reaction [...] mg, By Mouth, Daily, Patient will need [employer] pill dispenser, # 30 tablet, 11 Refills, Maintenance, 10/02/21 13:46:00 EDT, Tablet, [facility], Partial fill upon patient request if the prescription is for a schedule II opioid d... Start Date: 10/02/21 Status: Ordered Calcium 600 +D oral tablet 1 tablet, By Mouth, 2 times a day, calcium 600 and Vit D 400 units, # 90 tablet, 11 Refills, Maintenance, 10/11/21 10:03:00 EDT, [facility], Partial fill upon patient request if the prescription is for a schedule II opioid drug., 1 tablet By M... Start Date: 10/11/21 Status: Ordered clopidogrel 75 mg oral tablet 1, tablet, By Mouth, Daily, ASA allergy Patient will need [employer] pill dispenser, # 30 tablet, Refills 11, Tot. Refills 11, Maintenance, 10/02/21 13:46:00 EDT, Route to Pharmacy Electronically, [facility], 135, cm, 09/29/21 10:30:00 EDT, He... [...] for 30 days, # 30 capsule, Refills 1, Tot. Refills 1, Acute 12/30/21 15:01:00 EDT, 10/31/21 15:01:00 EDT, Route to Pharmacy Electronically, [facility], Partial fill upon patient request if the pr... Start Date: 10/31/21 Stop Date: 12/30/21 Status: Ordered Lantus Solostar Pen 100 units/mL subcutaneous solution = 20 units, Subcutaneous Injection, Daily, daily in the morning Patient will need [facility] pill dispenser, # 10 mL, 11 Refills, Maintenance, 10/02/21 13:47:00 EDT, Solution, [facility], 135,cm, 09/29/21 10:30:00 EDT, Height Start Date: 10/02/21 Stop Date: 09/27/22 Status: Ordered lisinopril 20 mg oral tablet 1, tablet, By Mouth, Daily, Patient will need [employer] pill dispenser, # 28 tablet, Refills 11, Tot. Refills 11, Maintenance, 10/02/21 13:48:00 EDT, Route to Pharmacy Electronically, [facility], 135, cm, 09/29/21 10:30:00 EDT, Height Start Date: 10/02/21 Status: Ordered Pen [place], 30 G x 8 mm BD Ultra [...] nfirmed) 17 Active Osteoarthritis(Confirmed) Active Osteoporosis(Confirmed) Active *[id number] Care Partn er Opal Umana(Confirmed) Active Non-compliant patient(Confirmed) Active Respiratory failure requirin g intubation(Confirmed) 2004 Active Tubular adenoma(Confirmed) 19 11/2007 Active Urinary incontinence(Confirmed) Active Venous embolism(Confirmed) 20 Active 1PFTs normal in 2010 2recurrent 3bilat 10410's 5-Echo at [facility] on 06-21-14, 6Dr. Ingis 7Read Cardiology note form 24-16 8-reported by patient. In 2011 had dobutamine stress test, which showed no EKG findings suggestive of ischemia. 9-Minimental today: 60-Ckkc-tpbiyh today: 11Lt shoulder 12-admission in 2017 for Left sided weakness and associated headache, ruled out from CVA, likely Complex Migraine 13CT scan of the brain done on 05/14/13- unremarkable 14March 2013-the temporal artery biopsy was negative 15Evaluated by [facility]umatology ([facility] and [facility] Impression is fibromyalgia and OA 16-refuses CPAP 17reported by patient 18-2ary to asthma exacerbation. At [facility] 19Then again on . Had poor [...]
--- OUTSIDE RECORDS SUMMARY | 2023-01-15 16:48 | XMS_ITS | Continuity of Care Document ---
Author Name Unknown Organization [facility] Address [address] [place] [address]- Care Team Providers Care Residential Pest Control Technician Name Role Phone Bety KNIGHT, Ameena Primary Care Physician Encounter [facility] Date(s): 04/13/20 - 05/13/20 [facility] [place] [address] [place] [address]- Allergies, Adverse Reactions, Alerts Substance Reaction Severity [...] 12:26:00 EDT, Aerosol, Route to Pharmacy Electronically, [id number], [facility], 135, cm, 07/23/18... Start [...] 16:16:00 EDT, Route to Pharmacy Electronically, [facility], 135, cm, 07/23/18 11:47:00 EDT, Height, 84.3, kg, 07/23/18 11:47:00 EDT, Dry Weight Start Date: 01/20/20 Status: Ordered omeprazole 20 mg oral enteric coated capsule 1 capsule, By Mouth, 2 times a day, # 56 capsule, 0 Refills, Maintenance, 01/20/20 16:16:00 EDT, [facility], 135, cm, 07/23/18 11:47:00 EDT, Height, 84.3, kg, 07/23/18 11:47:00 EDT, DryWeight Start Date: 01/20/20 Status: Ordered Pen [place], 30 G x 8 mm BD Ultra [...] nfirmed) 14 Active Osteoarthritis(Confirmed) Active Osteoporosis(Confirmed) Active *[id number] Care Partn er Sandra Loredo(Confirmed) Active Non-compliant patient(Confirmed) Active Respiratory failure requirin g intubation(Confirmed) 2004 Active Tubular adenoma(Confirmed) 16 11/2007 Active Urinary incontinence(Confirmed) Active Venous embolism(Confirmed) 17 Active 1PFTs normal in 2010 2recurrent 3bilat 42001's 5-Echo at [facility] on 06-21-14, 6Dr. Ingis 7Read Cardiology note form 12-20-15 8-reported by patient. In 2011 had dobutamine stress test, which showed no EKG findings suggestive of ischemia. 9Lt shoulder 10CT scan of the brain done on 05/14/13- unremarkable 2013-the temporal artery biopsy was negative 12Evaluated by Rheumatology ([facility] and [facility]). Impression is fibromyalgia and OA 13-refuses CPAP 14reported by patient 15-2ary to asthma exacerbation. At [facility] 16Then again on . Had poor prep so it was recommended to repeat it in 1 year with 2 day of clears and 1 day of golytely. 2 medium sized adenomatous appearing polyps were removed [id number] Social History Social History Type Response Smoking Status Former smoker; Other : 2ppd x 5y; Stopped at age: 34; entered on: 09/11/17 Sex
--- OUTSIDE RECORDS SUMMARY | 2023-01-15 16:48 | XMS_ITS | Continuity of Care Document ---
Author Name Unknown Organization [facility] Address [address] [place] [address]- Care Team Providers Care Retail Support Specialist Name Role Phone Bety KNIGHT, Ameena Primary Care Physician Encounter [facility] [place] Date(s): 12/19/21 - 01/18/22 [facility] [address]- [place] Allergies, Adverse Reactions, Alerts Substance Reaction [...] 11/14/2214:05:00 EDT, Aerosol, Route to Pharmacy Electronically, NCPDP_[id number], [facility], 135,cm, 10/11/21 9:20:00 EDT, Height Start Date: 11/14/21 Status: Ordered atorvastatin 20 mg oral tablet 1 tablet = 20 mg, By Mouth, Daily, Patient will need [facility] pill dispenser, # 30 tablet, 11 Refills, Maintenance, 10/02/21 13:46:00 EDT, Tablet, [facility], Partial fill upon patient request if the prescription is for a schedule II opioid d... Start Date: 10/02/21 Status: Ordered Calcium 600 +D oral tablet 1 tablet, By Mouth, 2 times a day, calcium 600 and Vit D 400 units, # 90 tablet, 11 Refills, Maintenance, 10/11/21 10:03:00 EDT, [facility], Partial fill upon patient request if the prescription is for a schedule II opioid drug., 1 tablet By M... Start Date: 10/11/21 Status: Ordered clopidogrel 75 mg oral tablet 1, tablet, By Mouth, Daily, ASA allergy Patient will need [facility] pill dispenser, # 30 tablet, Refills 11, Tot. Refills 11, Maintenance, 10/02/21 13:46:00 EDT, Route to Pharmacy Electronically, [facility], 135, cm, 09/29/21 10:30:00 EDT, He... [...] 12/28/21 12:43:00 EDT, Route to Pharmacy Electronically, [facility], 135, cm, 10/11/21 9:20:00 EDT, Height Start Date: 12/28/21 Status: Ordered Lantus Solostar Pen 100 units/mL subcutaneous solution = 20 units, Subcutaneous Injection, Daily, daily in the morning Patient will need [facility] pill dispenser, # 10 mL, 11 Refills, Maintenance, 10/02/21 13:47:00 EDT, Solution, [facility], 135,cm, 09/29/21 10:30:00 EDT, Height Start Date: 10/02/21 Stop Date: 09/27/22 Status: Ordered lisinopril 20 mg oral tablet 1, tablet, By Mouth, Daily, Patient will need [employer] pill dispenser, # 28 tablet, Refills 11, Tot. Refills 11, Maintenance, 10/02/21 13:48:00 EDT, Route to Pharmacy Electronically, [facility], 135, cm, 09/29/21 10:30:00 EDT, Height Start Date: 10/02/21 Status: Ordered Pen [place], 30 G x 8 mm BD Ultra [...] nfirmed) 17 Active Osteoarthritis(Confirmed) Active Osteoporosis(Confirmed) Active *[id number] Care Partn er Opal Umana(Confirmed) Active Non-compliant patient(Confirmed) Active Respiratory failure requirin g intubation(Confirmed) 2004 Active Tubular adenoma(Confirmed) 19 11/2007 Active Urinary incontinence(Confirmed) Active Venous embolism(Confirmed) 20 Active 1PFTs normal in 2010 2recurrent 3bilat 83227's 5-Echo at [facility] on 06-21-14, 6Dr. Ingis 7Read Cardiology note form 12-20-15 8-reported by patient. In 2011 had dobutamine stress test, which showed no EKG findings suggestive of ischemia. 9-Minimental today: 93-Ixmx-ilucfx today: 11Lt shoulder 12-admission in 2016 for Left sided weakness and associated headache, ruled out from CVA, likely Complex Migraine 13CT scan of the brain done on 05/14/13- unremarkable 14March 2013-the temporal artery biopsy was negative 15Evaluated by Rheumatology ([facility] and [facility]). Impression is fibromyalgia and OA 16-refuses CPAP 17reported by patient 18-2ary to asthma exacerbation. At [facility] 19Then again on . Had poor [...] Team Personnel Name: Ameena Albert MD Address: [address] [place] [id number] [[email or web address]]
--- OUTSIDE RECORDS SUMMARY | 2023-01-15 16:48 | XMS_ITS | Continuity of Care Document ---
Author Name Unknown Organization [facility] Address [address] [place] [address]- Care Team Providers Care Grain Elevator Man Name Role Phone Bety KNIGHT, Ameena Primary Care Physician ( [phone] Encounter [facility] Date(s): 03/27/20 - 04/26/20 [facility] [address] [address]- Allergies, Adverse Reactions, Alerts Substance Reaction Severity [...] 12:26:00 EDT, Aerosol, Route to Pharmacy Electronically, [id number], [facility], 135, cm, 07/23/18... Start [...] 16:16:00 EDT, Route to Pharmacy Electronically, [facility], 135, cm, 07/23/18 11:47:00 EDT, [...] DryWeight Start Date: 01/20/20 Status: Ordered Pen [place], 30 G x 8 mm BD [...] nfirmed) 14 Active Osteoarthritis(Confirmed) Active Osteoporosis(Confirmed) Active *[id number] Care Partn er Sandra Loredo(Confirmed) Active Non-compliant patient(Confirmed) Active Respiratory failure requirin g intubation(Confirmed) 2004 Active Tubular adenoma(Confirmed) 16 11/2007 Active Urinary incontinence(Confirmed) Active Venous embolism(Confirmed) 17 Active 1PFTs normal in 2010 2recurrent 3bilat 63005's 5-Echo at [facility] on 06-21-14, 6Dr. Ingis 7Read Cardiology note form 12-20-15 8-reported by patient. In 2011 had dobutamine stress test, which showed no EKG findings suggestive of ischemia. 9Lt shoulder 10CT scan of the brain done on 05/14/13- unremarkable 2013-the temporal artery biopsy was negative 12Evaluated by Rheumatology ([facility] and [facility]). Impression is fibromyalgia and OA 13-refuses CPAP 14reported by patient 15-2ary to asthma exacerbation. At [facility] 16Then again on . Had poor prep so it was recommended to repeat it in 1 year with 2 day of clears and 1 day of golytely. 2 medium sized adenomatous appearing polyps were removed [id number] Social History Social History Type Response Smoking Status Former smoker; Other : 2ppd x 5y; Stopped at age: 34; entered on: 09/11/17 Sex
--- OUTSIDE RECORDS SUMMARY | 2023-01-15 16:49 | XMS_ITS | Continuity of Care Document ---
Author Name Unknown Organization [facility] Address Unknown Care Team Providers Care Plan Examiner Name Role Phone Bety KNIGHT, Ameena Primary Care Physician Encounter [facility] [place] Date(s): 06/29/21 - 07/29/21 [facility] Allergies, Adverse Reactions, Alerts Substance Reaction Severity Status acetaminophen Active penicillin ITCHING, RASH Active Motrin Active aspirin rash Active tetanus toxoid SWELLING [...] Refills, Maintenance, 07/05/21 12:45:00 EST, Tablet, [id number], Partial fill upon patient request if the prescription is for a schedule II opioid drug., 135, cm, 09/21/20 11:34:00 EDT, Height Start Date: 07/05/21 Status: Ordered clopidogrel 75 mg oral tablet 1, tablet, By Mouth, Daily, ASA allergy, # 30 tablet, Refills 11, Tot. Refills 11, Maintenance, 07/05/21 12:44:00 EST, Route to Pharmacy Electronically, [facility]/pharmacy #[id number], 135, cm, 09/21/20 11:34:00EDT, Height [...] 11 Refills, Maintenance, 07/05/21 12:45:00 EST, Solution, [facility]/pharmacy #[id number], 135, cm, 09/21/20 11:34:00 EDT, Height Start Date: 07/05/21 Stop Date: 06/30/22 Status: Ordered lisinopril 20 mg oral tablet 1, tablet, By Mouth, Daily, # 28 tablet, Refills 11, Tot. Refills 11, Maintenance, 07/05/21 12:45:00 EST, Route to Pharmacy Electronically, [facility]/pharmacy #[id number], 135, cm, 09/21/20 11:34:00 EDT, Height Start Date: 07/05/21 Status: Ordered Pen [place], 30 G x 8 mm BD Ultra [...] nfirmed) 15 Active Osteoarthritis(Confirmed) Active Osteoporosis(Confirmed) Active *[id number] Care Partn er Opal Umana(Confirmed) Active Non-compliant patient(Confirmed) Active Respiratory failure requirin g intubation(Confirmed) 16 2004 Active Tubular adenoma(Confirmed) 17 11/2007 Active Urinary incontinence(Confirmed) Active Venous embolism(Confirmed) 18 Active 1PFTs normal in 2010 2recurrent 3bilat 97455's 5-Echo at [facility] on 06-21-14, 6Dr. Ingis 7Read Cardiology note form 12-20-15 8-reported by patient. In 2011 had dobutamine stress test, which showed no EKG findings suggestive of ischemia. 3-Tpgp-ogzjaw today: 10Lt shoulder 11CT scan of the brain done on 05/14/13- unremarkable 2013-the temporal artery biopsy was negative 13Evaluated by Rheumatology ([facility] and [facility]). Impression is fibromyalgia and OA 14-refuses CPAP 15reported by patient 16-2ary to asthma exacerbation. At [facility] 17Then again on . Had poor prep so it was recommended to repeat it in 1 year with 2 day of clears and 1 day of golytely. 2 medium sized adenomatous appearing polyps were removed [id number] Social History Social History Type Response Smoking Status Former smoker; Other : 2ppd x 5y; Stopped at age: 34; entered on: 09/11/17 Sex
--- OUTSIDE RECORDS SUMMARY | 2023-01-15 16:49 | XMS_ITS | Continuity of Care Document ---
Author Name Unknown Organization [facility] Address [address] [place] [address]- Care Team Providers Care Escrow Officer Name Role Phone Bety KNIGHT, Ameena Primary Care Physician Encounter [facility] Date(s): 09/29/21 - 10/29/21 [facility] [address] [place] [address]- Attending Physician: Rafa Toney Admitting Physician: Rafa Toney Referring Physician: AdmtrRafa Allergies, Adverse Reactions, Alerts Substance Reaction Severity Status acetaminophen Active penicillin ITCHING, RASH Active tetanus toxoid SWELLING Active Motrin Active aspirin rash Active Benadryl RASH, VOMITING Active Latex SWELLING [...] tablet, 11 Refills, Maintenance, 10/11/21 10:03:00 EDT, [facility], Partial fill upon patient request if the prescription is for a schedule II opioid drug., 1 tablet By M... Start Date: 10/11/21 Status: Ordered clopidogrel 75 mg oral tablet 1, tablet, By Mouth, Daily, ASA allergy Patient will [facility], # 30 tablet, Refills 11, Tot. Refills 11, Maintenance, 10/02/21 13:46:00 EDT, Route to Pharmacy Electronically, [facility], 135, cm, 09/29/21 10:30:00 EDT, He... [...] 10/09/21 20:56:00 EDT, Route to Pharmacy Electronically, [facility], Partial fill upon patient request if the pr... Start Date: 10/09/21 Stop Date: 11/08/21 Status: Ordered Lantus Solostar Pen 100 units/mL subcutaneous solution = 20 units, Subcutaneous Injection, Daily, daily in the morning Patient will need [facility] pill dispenser, # 10 mL, 11 Refills, Maintenance, 10/02/21 13:47:00 EDT, Solution, [facility], 135,cm, 09/29/21 10:30:00 EDT, Height Start Date: 10/02/21 Stop Date: 09/27/22 Status: Ordered lisinopril 20 mg oral tablet 1, tablet, By Mouth, Daily, Patient will need [facility] pill dispenser, # 28 tablet, Refills 11, Tot. Refills 11, Maintenance, 10/02/21 13:48:00 EDT, Route to Pharmacy Electronically, [facility], 135, cm, 09/29/21 10:30:00 EDT, Height Start Date: 10/02/21 Status: Ordered Pen [place], 30 G x 8 mm BD Ultra [...] nfirmed) 17 Active Osteoarthritis(Confirmed) Active Osteoporosis(Confirmed) Active *[id number] Care Partn er Opaldora Lópeze(Confirmed) Active Non-compliant patient(Confirmed) Active Respiratory failure requirin g intubation(Confirmed) 2004 Active Tubular adenoma(Confirmed) 19 11/2007 Active Urinary incontinence(Confirmed) Active Venous embolism(Confirmed) 20 Active 1PFTs normal in 2010 2recurrent 3bilat 07296's 5-Echo at [facility] on 06-21-14, 6Dr. Ingis 7Read Cardiology note form 12-20-15 8-reported by patient. In 2011 had dobutamine stress test, which showed no EKG findings suggestive of ischemia. 9-Minimental today: 09-Lwhe-zpaape today: 11Lt shoulder 12-admission in 2017 for Left sided weakness and associated headache, ruled out from CVA, likely Complex Migraine 13CT scan of the brain done on 05/14/13- unremarkable 14March 2013-the temporal artery biopsy was negative 15Evaluated by Rheumatology ([facility] and [facility]). Impression is fibromyalgia and OA 16-refuses CPAP 17reported by patient 18-2ary to asthma exacerbation. At [facility] 19Then again on . Had poor [...]
--- OUTSIDE RECORDS SUMMARY | 2023-01-15 16:49 | XMS_ITS | Continuity of Care Document ---
Author Name Unknown Organization [facility] Address [address] [place] [id number]- Care Team Providers Care Inspector Heating And Refrigeration Name Role Phone Bety KNIGHT, Bakari Primary Care Physician [place] [facility] Date(s): 04/18/22 - 05/18/22 [facility]/[place] [address]- Attending Physician: Rafa Toney Admitting Physician: AdmRafa son Referring Physician: Admtr ArEna Allergies, Adverse Reactions, [...] mg, By Mouth, Daily, Patient will need [employer] pill dispenser, # 30 tablet, 11 Refills, Maintenance, 10/02/21 13:46:00 EDT, Tablet, [facility], Partial fill upon patient request if the prescription is for a schedule II opioid d... Start Date: 10/02/21 Status: Ordered Calcium 600 +D oral tablet 1 tablet, By Mouth, 2 times a day, calcium 600 and Vit D 400 units, # 90 tablet, 11 Refills, Maintenance, 10/11/21 10:03:00 EDT, [facility], Partial fill upon patient request if the prescription is for a schedule II opioid drug., 1 tablet By M... Start Date: 10/11/21 Status: Ordered clopidogrel 75 mg oral tablet 1, tablet, By Mouth, Daily, ASA allergy Patient will need [facility] pill dispenser, # 30 tablet, Refills 11, Tot. Refills 11, Maintenance, 10/02/21 13:46:00 EDT, [facility], [facility], cm, 09/29/21 10:30:00 EDT, [...] 05/09/22 18:59:00 EST, Route to Pharmacy Electronically, [facility], 135, cm, 10/11/21 9:20:00 EDT, Height Start Date: 05/09/22 Status: Ordered Lantus Solostar Pen 100 units/mL subcutaneous solution = 20 units, Subcutaneous Injection, Daily, daily in the morning Patient will need [facility] pill dispenser, # 10 mL, 11 Refills, Maintenance, 10/02/21 13:47:00 EDT, Solution, [facility], 135,cm, 09/29/21 10:30:00 EDT, Height Start Date: 10/02/21 Stop Date: 09/27/22 Status: Ordered lisinopril 20 mg oral tablet 1, tablet, By Mouth, Daily, Patient will need [facility] pill dispenser, # 28 tablet, Refills 11, Tot. Refills 11, Maintenance, 10/02/21 13:48:00 EDT, Route to Pharmacy Electronically, [facility], 135, cm, 09/29/21 10:30:00 EDT, Height Start Date: 10/02/21 Status: Ordered Pen [place], 30 G x 8 mm BD Ultra [...] Gm, 2 Refills, Maintenance, 05/09/22 18:39:00 EST, [facility], 135, cm, 10/11/21 9:20:00 EDT, Height [...] Active Osteoarthritis Confirmed Active Osteoporosis Confirmed Active *[id number] Clinical Laboratory Aides Teacher Opal Umana Confirmed Active Non-compliant patient Confirmed Active Respiratory failure requiring intubation 18 Confirmed 2004 Active Tubular adenoma 19 Confirmed 11/2007 Active Urinary incontinence Confirmed Active Venous embolism 20 Confirmed Active 1PFTs normal in 2010 2recurrent 3bilat 43199's 5-Echo at [facility] on 06-21-14, 6Dr. Ingis 7Read Cardiology note form 12-20-15 8-reported by patient. In 2011 had dobutamine stress test, which showed no EKG findings suggestive of ischemia. 9-Minimental today: 99-Zjty-tsseip today: 11Lt shoulder 12-admission in 2016 for Left sided weakness and associated headache, ruled out from CVA, likely Complex Migraine 13CT scan of the brain done on 05/14/13- unremarkable 14March 2013-the temporal artery biopsy was negative 15Evaluated by [facility]umat[facility] ([facility] Impression is fibromyalgia and OA 16-refuses CPAP 17reported by patient 18-2ary to asthma exacerbation. At [facility] 19Then again on . Had poor prep so it was recommended to repeat it in 1 year with 2 day of clears and 1 day of golytely. 2 medium sized adenomatous appearing polyps were removed Social History Social History Type Response Smoking Status Former smoker; Other : 2ppd x 5y; Stopped at age: 34; entered on: 09/11/17 Sex Note * Bety KNIGHT, Bakari: REVIEW Event Display: X-Ray Hand/Wrist, Non- BH Authored Date: * Event Display: Non BH Cardiovascular Results Authored Date: Patient Care team information Care Team Personnel Name: Gavi Arthur RN Position: [facility] PCO RN Member Role: Primary Care Nurse Name: Malgorzata Ugalde RN Position: [facility] SN RN Member Role: Primary Care Nurse Name: Tsering Casey RN Position: [facility] RN Member Role: Primary Care Nurse Name: Bakari Albert MD Position: [facility] Primary Care Physician Member Role: PCP Address: Address: [address] [place] [id number]- Name: Aliza Lemon RN Position: [facility] RN Member Role: Primary Care Nurse Name: Tsering Johnson RN Position: [facility] RN Member Role: Primary Care Nurse Care Team Related Persons Name: DOYLE, JCARLOS Address: home [address] [facility] [place] [address] Name: GRACE MADRIGAL Address: [place] [address] Name: [facility]
--- OUTSIDE RECORDS SUMMARY | 2023-01-15 16:49 | XMS_ITS | Continuity of Care Document ---
Author Name Unknown Organization [facility] Address Unknown Care Team Providers Care Residence Manager Name Role Phone Bety KNIGHT, Ameena Primary Care Physician [place] [facility] [place] 11/10/21 [facility] Attending Physician: Rafa Toney Admitting Physician: Rafa Toney Referring Physician: Rafa Toney Allergies, Adverse Reactions, Alerts Substance Reaction Severity Status acetaminophen Active penicillin ITCHING, RASH Active aspirin rash Active tetanus toxoid SWELLING Active Motrin Active Losartan Potassium 1 spitting christophe blood Active Benadryl RASH, VOMITING Active Egg Allergy [...] mg, By Mouth, Daily, Patient will need [employer] pill dispenser, # 30 tablet, 11 Refills, Maintenance, 10/02/21 13:46:00 EDT, Tablet, [facility], Partial fill upon patient request if the prescription is for a schedule II opioid d... Start Date: 10/02/21 Status: Ordered Calcium 600 +D oral tablet 1 tablet, By Mouth, 2 times a day, calcium 600 and Vit D 400 units, # 90 tablet, 11 Refills, Maintenance, 10/11/21 10:03:00 EDT, [facility], Partial fill upon patient request if the prescription is for a schedule II opioid drug., 1 tablet By M... Start Date: 10/11/21 Status: Ordered clopidogrel 75 mg oral tablet 1, tablet, By Mouth, Daily, ASA allergy Patient will need [facility] pill dispenser, # 30 tablet, Refills 11, Tot. Refills 11, Maintenance, 10/02/21 13:46:00 EDT, Route to Pharmacy Electronically, [facility], 135, cm, 09/29/21 10:30:00 EDT, He... [...] 10/31/21 15:01:00 EDT, Route to Pharmacy Electronically, [facility], Partial fill upon patient request if the pr... Start Date: 10/31/21 Stop Date: 12/30/21 Status: Ordered Lantus Solostar Pen 100 units/mL subcutaneous solution = 20 units, Subcutaneous Injection, Daily, daily in the morning Patient will need [facility] pill dispenser, # 10 mL, 11 Refills, Maintenance, 10/02/21 13:47:00 EDT, Solution, [facility], 135,cm, 09/29/21 10:30:00 EDT, Height Start Date: 10/02/21 Stop Date: 09/27/22 Status: Ordered lisinopril 20 mg oral tablet 1, tablet, By Mouth, Daily, Patient will need [facility] pill dispenser, # 28 tablet, Refills 11, Tot. Refills 11, Maintenance, 10/02/21 13:48:00 EDT, Route to Pharmacy Electronically, [facility], 135, cm, 09/29/21 10:30:00 EDT, Height Start Date: 10/02/21 Status: Ordered Pen [place], 30 G x 8 mm BD Ultra [...] nfirmed) 17 Active Osteoarthritis(Confirmed) Active Osteoporosis(Confirmed) Active *[id number] Care Partn er Opal Umana(Confirmed) Active Non-compliant patient(Confirmed) Active Respiratory failure requirin g intubation(Confirmed) 2004 Active Tubular adenoma(Confirmed) 19 11/2007 Active Urinary incontinence(Confirmed) Active Venous embolism(Confirmed) 20 Active 1PFTs normal in 2010 2recurrent 3bilat 62625's 5-Echo at [facility] on 06-21-14, 6Dr. Ingis 7Read Cardiology note form 12-20-15 8-reported by patient. In 2011 had dobutamine stress test, which showed no EKG findings suggestive of ischemia. 9-Minimental today: 25-Xviw-rffrlh today: 11Lt shoulder 12-admission in 2017 for Left sided weakness and associated headache, ruled out from CVA, likely Complex Migraine 13CT scan of the brain done on 05/14/13- unremarkable 14March 2013-the temporal artery biopsy was negative 15Evaluated by Rheumatology ([facility] and [facility] Impression is fibromyalgia and OA 16-refuses CPAP 17reported by patient 18-2ary to asthma exacerbation. At [facility] 19Then again on . Had poor [...]
--- OUTSIDE RECORDS SUMMARY | 2023-01-15 16:49 | XMS_ITS | Continuity of Care Document ---
Author Name Unknown Organization [facility] Address Unknown Care Team Providers Care Senior Mechanical Project Manager Name Role Phone Bety KNIGHT, Ameena Primary Care Physician En[place] [facility] Date(s): 09/11/21 - 10/11/21 [facility] Allergies, Adverse Reactions, Alerts Substance Reaction [...] mg, By Mouth, Daily, Patient will need [email or web address] pill dispenser, # 30 tablet, 11 Refills, Maintenance, 10/02/21 13:46:00 EDT, Tablet, [facility], Partial fill upon patient request if the prescription is for a schedule II opioid d... Start Date: 10/02/21 Status: Ordered Calcium 600 +D oral tablet 1 tablet, By Mouth, 2 times a day, calcium 600 and Vit D 400 units, # 90 tablet, 11 Refills, Maintenance, 10/11/21 10:03:00 EDT, [facility], Partial fill upon patient request if the prescription is for a schedule II opioid drug., 1 tablet By M... Start Date: 10/11/21 Status: Ordered clopidogrel 75 mg oral tablet 1, tablet, By Mouth, Daily, ASA allergy Patient will need [employer] pill dispenser, # 30 tablet, Refills 11, Tot. Refills 11, Maintenance, 10/02/21 13:46:00 EDT, Route to Pharmacy Electronically, [facility], 135, cm, 09/29/21 10:30:00 EDT, He... [...] 10/09/21 20:56:00 EDT, Route to Pharmacy Electronically, [facility], Partial fill upon patient request if the pr... Start Date: 10/09/21 Stop Date: 11/08/21 Status: Ordered Lantus Solostar Pen 100 units/mL subcutaneous solution = 20 units, Subcutaneous Injection, Daily, daily in the morning Patient will need [employer] pill dispenser, # 10 mL, 11 Refills, Maintenance, 10/02/21 13:47:00 EDT, Solution, [facility], 135,cm, 09/29/21 10:30:00 EDT, Height Start Date: 10/02/21 Stop Date: 09/27/22 Status: Ordered lisinopril 20 mg oral tablet 1, tablet, By Mouth, Daily, Patient will need [employer] pill dispenser, # 28 tablet, Refills 11, Tot. 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 Ingis 7Read Cardiology note form 12-19- 8-reported by patient. In 2011 had dobutamine stress test, which showed no EKG findings suggestive of ischemia. 9-Minimental today: 85-Hasq-bqqqos today: 11Lt shoulder 12CT scan of the brain done on 05/14/13- unremarkable 13March 2013-the temporal artery biopsy was negative 14Evaluated by Rheumatology ([facility] and [facility] Impression is fibromyalgia and OA 15-refuses CPAP 16reported by patient 17-2ary to asthma exacerbation. At [facility] 18Then again on . Had poor prep so it was recommended to repeat it in 1 year with 2 day of clears and 1 day of golytely. 2 medium sized adenomatous appearing polyps were removed [id number] Social History Social History Type Response Smoking Status Former smoker; Other : 2ppd x 5y; Stopped at age: 34; entered on: 09/11/17 Sex
--- OUTSIDE RECORDS SUMMARY | 2023-01-15 16:49 | XMS_ITS | Continuity of Care Document ---
Author Name Unknown Organization [facility] Address Unknown Care Team Providers Care Grommet Worker Name Role Phone Bety KNIGHT, Ameena Primary Care Physician Encounter [place] Date(s): 08/30/21 - 09/29/21 [facility] Allergies, Adverse Reactions, Alerts Substance Reaction Severity [...] Refills, Maintenance, 07/05/21 12:45:00 EST, Tablet, [id number], Partial fill upon patient request if the prescription is for a schedule II opioid drug., 135, cm, 09/21/20 11:34:00 EDT, Height Start Date: 07/05/21 Status: Ordered clopidogrel 75 mg oral tablet 1, tablet, By Mouth, Daily, ASA allergy, # 30 tablet, Refills 11, Tot. Refills 11, Maintenance, 07/05/21 12:44:00 EST, Route to Pharmacy Electronically, [id number], 135, cm, 09/21/20 11:34:00EDT, [...] Date: 07/05/21 Stop Date: 06/30/22 Status: Ordered gabapentin 100 mg oral capsule 100 mg, 1, capsule, By Mouth, Daily at bedtime, # 30 capsule, Refills 0, Tot. Refills 0, Acute 10/29/21 11:30:00 EDT, 09/29/21 11:07:00 EDT, Route to Pharmacy Electronically, [id number], Partial fill upon patient request if the prescription is... Start Date: 09/29/21 Stop Date: 10/29/21 Status: Ordered Lantus Solostar Pen 100 units/mL subcutaneous solution = 20 units, Subcutaneous Injection, Daily, daily in the morning, # 10 mL, 11 Refills, Maintenance, 07/05/21 12:45:00 EST, Solution[id number] 135, cm, 09/21/20 11:34:00 EDT, Height Start Date: 07/05/21 Stop Date: 06/30/22 Status: Ordered lisinopril 20 mg oral tablet 1, tablet, By Mouth, Daily, # 28 tablet, Refills 11, Tot. Refills 11, Maintenance, 07/05/21 12:45:00 EST, [id number], 135, cm, 09/21/20 11:34:00 EDT, Height Start Date: 07/05/21 Status: Ordered Pen [place], 30 G x 8 mm BD Ultra Fine II See Instructions, # 30 each, Refills 11, Tot. Refills 11, Maintenance, to use with lantus daily, 07/05/21 12:45:00 EST, [facility], 135, cm, 09/21/20 11:34:00 EDT, Height Start Date: 07/05/21 Status: Ordered Tylenol Extra Strength 500 mg oral tablet 2 tablet = 1,000 mg, By Mouth, Every 8 hours, PRN as needed for pain, # 30 tablet, 0 Refills, Maintenance, 09/20/21 14:34:00 EDT, Tablet, [id number], Partial fill upon patient request if the prescription is for a schedule II opioid drug., 135,... Start Date: 09/20/21 Status: Ordered Problem List Condition Effective Dates [...] nfirmed) 15 Active Osteoarthritis(Confirmed) Active Osteoporosis(Confirmed) Active *[id number] Care Partn er Opal Umana(Confirmed) Active Non-compliant patient(Confirmed) Active Respiratory failure requirin g intubation(Confirmed) 2004 Active Tubular adenoma(Confirmed) 17 11/2007 Active Urinary incontinence(Confirmed) Active Venous embolism(Confirmed) 18 Active 1PFTs normal in 2010 2recurrent 3bilat 77546's 5-Echo at [facility] on 06-21-14, 6Dr. Ingis 7Read Cardiology note form 12-20-15 8-reported by patient. In 2011 had dobutamine stress test, which showed no EKG findings suggestive of ischemia. 3-Aiwd-dbbuho today: 10Lt shoulder 11CT scan of the brain done on 05/14/13- unremarkable 12Junch 2013-the temporal artery biopsy was negative 13Evaluated by Rheumatology ([facility] and [facility] Impression is fibromyalgia and OA 14-refuses CPAP 15reported by patient 16-2ary to asthma exacerbation. At [facility] 17Then again on . Had poor prep so it was recommended to repeat it in 1 year with 2 day of clears and 1 day of golytely. 2 medium sized adenomatous appearing polyps were removed [id number] Social History Social History Type Response Smoking Status Former smoker; Other : 2ppd x 5y; Stopped at age: 34; entered on: 09/11/17 Sex
--- OUTSIDE RECORDS SUMMARY | 2023-01-15 16:49 | XMS_ITS | Continuity of Care Document ---
Author Name Unknown Organization [facility] Address [address] [place] [address]- Care Team Providers Care Mortgage Coordinator Name Role Phone Bety KNIGHT, Ameena Primary Care Physician En[place] [facility] Date(s): 11/27/21 - 12/27/21 [facility]/[place] [address]- [place] Allergies, Adverse Reactions, Alerts Substance Reaction [...] 11/14/2214:05:00 EDT, Aerosol, Route to Pharmacy Electronically, [id number][facility], [facility],cm, 10/11/21 9:20:00 EDT, Height Start Date: 11/14/21 Status: Ordered atorvastatin 20 mg oral tablet 1 tablet = 20 mg, By Mouth, Daily, Patient will need [facility] pill dispenser, # 30 tablet, 11 Refills, Maintenance, 10/02/21 13:46:00 EDT, Tablet, [facility], Partial fill upon patient request if the prescription is for a schedule II opioid d... Start Date: 10/02/21 Status: Ordered Calcium 600 +D oral tablet 1 tablet, By Mouth, 2 times a day, calcium 600 and Vit D 400 units, # 90 tablet, 11 Refills, Maintenance, 10/11/21 10:03:00 EDT, [facility], Partial fill upon patient request if the prescription is for a schedule II opioid drug., 1 tablet By M... Start Date: 10/11/21 Status: Ordered clopidogrel 75 mg oral tablet 1, tablet, By Mouth, Daily, ASA allergy Patient will need [employer] pill dispenser, # 30 tablet, Refills 11, Tot. Refills 11, Maintenance, 10/02/21 13:46:00 EDT, Route to Pharmacy Electronically, [facility], 135, cm, 09/29/21 10:30:00 EDT, He... [...] 11/30/21 13:29:00 EDT, [facility] Start Date: 11/30/21 Stop Date: 12/30/21 Status: Ordered Lantus Solostar Pen 100 units/mL subcutaneous solution = 20 units, Subcutaneous Injection, Daily, daily in the morning Patient will need [employer] pill dispenser, # 10 mL, 11 Refills, Maintenance, 10/02/21 13:47:00 EDT, Solution, [facility], 135,cm, 09/29/21 10:30:00 EDT, Height Start Date: 10/02/21 Stop Date: 09/27/22 Status: Ordered lisinopril 20 mg oral tablet 1, tablet, By Mouth, Daily, Patient will need [employer] pill dispenser, # 28 tablet, Refills 11, Tot. Refills 11, Maintenance, 10/02/21 13:48:00 EDT, Route to Pharmacy Electronically, [facility], 135, cm, 09/29/21 10:30:00 EDT, Height Start Date: 10/02/21 Status: Ordered Pen [place], 30 G x 8 mm BD Ultra [...] nfirmed) 17 Active Osteoarthritis(Confirmed) Active Osteoporosis(Confirmed) Active *[id number] Care Partn er Opal Dong(Confirmed) Active Non-compliant patient(Confirmed) Active Respiratory failure requirin g intubation(Confirmed) 2004 Active Tubular adenoma(Confirmed) 19 11/2007 Active Urinary incontinence(Confirmed) Active Venous embolism(Confirmed) 20 Active 1PFTs normal in 2010 2recurrent 3bilat 19818's 5-Echo at [facility] on 06-21-14, 6Dr. Ingis 7Read Cardiology note form 8-24-16 8-reported by patient. In 2011 had dobutamine stress test, which showed no EKG findings suggestive of ischemia. 9-Minimental today: 85-Bgvw-qcvhrh today: 11Lt shoulder 12-admission in 2017 for Left sided weakness and associated headache, ruled out from CVA, likely Complex Migraine 13CT scan of the brain done on 05/14/13- unremarkable 14March 2013-the temporal artery biopsy was negative 15Evaluated by [facility]umatology ([facility] and [facility]). Impression is fibromyalgia and OA 16-refuses CPAP 17reported by patient 18-2ary to asthma exacerbation. At [facility] 19Then again on . Had [...] Team Personnel Name: Ameena Albert MD Address: [address] [place] [address]
--- OUTSIDE RECORDS SUMMARY | 2023-01-15 16:49 | XMS_ITS | Continuity of Care Document ---
Author Name Unknown Organization [facility] Address Unknown Care Team Providers Care Centrifugal Spinner Name Role Phone Bety KNIGHT, Ameena Primary Care Physician Encounter [facility] R [id number] Date(s): 12/28/20 - 01/27/21 [facility] Attending Physician: Rafa Toney Admitting Physician: [...] Daily, ASA allergy, # 30 tablet, Refills 6, Tot. Refills 6, Maintenance, 11/27/20 17:04:00 EDT, Route to Pharmacy Electronically, [facility], 135, cm, 09/21/20 11:34:00 EDT, Height Start Date: 11/27/20 Status: Ordered Freestyle Lite Lancets See Instructions, # 100 each, Refills 11, Tot. Refills 11, Maintenance, use as directed for Type 2 Diabetes Mellitus, E11.9, Test BS tid., 11/27/20 15:58:00 EDT, Compound, 135, cm, 09/21/20 11:34:00 EDT, Height Start Date: 11/27/20 Stop Date: 11/22/21 Status: Ordered Freestyle Lite Monitor See Instructions, [...] 2 Diabetes Mellitus, E11.9, Test BS tid., 11/27/20 15:58:00 EDT, Compound, 135, cm, 09/21/20 11:34:00 EDT, Height Start Date: 11/27/20 Stop Date: 11/22/21 Status: Ordered Lantus Solostar Pen 100 units/mL subcutaneous solution = 10 units, Subcutaneous Injection, Daily, daily in the morning, # 10 mL, 0 Refills, Maintenance, 11/27/20 15:58:00 EDT, Solution, [facility], 135, cm, 09/21/20 11:34:00 EDT, Height Start Date: 11/27/20 Stop Date: 12/27/20 Status: Ordered lisinopril 20 mg oral tablet 1, tablet, By Mouth, Daily, # 28 tablet, Refills 6, Tot. Refills 6, Maintenance, 11/27/20 17:03:00 EDT, Route to Pharmacy Electronically, [facility], 135, cm, 09/21/20 11:34:00 EDT, Height Start Date: 11/27/20 Status: Ordered Pen [place], 30 G x 8 mm BD Ultra Fine II See Instructions, # 30 each, Refills 11, Tot. Refills 11, Maintenance, to use with lantus daily, 11/27/20 15:58:00 EDT, Compound, 135, cm, 09/21/20 11:34:00 EDT, Height Start Date: 11/27/20 Status: Ordered Problem List Condition Effective Dates [...] nfirmed) 15 Active Osteoarthritis(Confirmed) Active Osteoporosis(Confirmed) Active *[id number] Care Partn er Sandra Loredo(Confirmed) Active Non-compliant patient(Confirmed) Active Respiratory failure requirin g intubation(Confirmed) 2004 Active Tubular adenoma(Confirmed) 17 11/2007 Active Urinary incontinence(Confirmed) Active Venous embolism(Confirmed) 18 Active 1PFTs normal in 2010 2recurrent 3bilat 73643's 5-Echo at [facility] on 06-21-14, 6Dr. Ingis 7Read Cardiology note form 12-20-15 8-reported by patient. In 2011 had dobutamine stress test, which showed no EKG findings suggestive of ischemia. 7-Bqik-wzgrjt today: 10Lt shoulder 11CT scan of the brain done on 05/14/13- unremarkable 12March 2013-the temporal artery biopsy was negative 13Evaluated by Rheumatology ([facility] and [facility] Impression is fibromyalgia and OA 14-refuses CPAP 15reported by patient 16-2ary to asthma exacerbation. At [facility] 17Then again on . Had poor prep so it was recommended to repeat it in 1 year with 2 day of clears and 1 day of golytely. 2 medium sized adenomatous appearing polyps were removed [id number] Social History Social History Type Response Smoking Status Former smoker; Other : 2ppd x 5y; Stopped at age: 34; entered on: 09/11/17 Sex
--- OUTSIDE RECORDS SUMMARY | 2023-01-15 16:49 | XMS_ITS | Continuity of Care Document ---
Author Name Unknown Organization [facility] Address [address] [place] [address]- Care Team Providers Care Cutter Machine Tender Name Role Phone Bety KNIGHT, Bakari Primary Care Physician Encounter [facility] Date(s): 08/16/22 - 08/23/[address] [address]- Attending Physician: Ronel Rosado NP Allergies, Adverse [...] tablet, 11 Refills, Maintenance, 10/11/21 10:03:00 EDT, [facility], Partial fill upon patient request if the prescription is for a schedule II opioid drug., 1 tablet By M... Start Date: 10/11/21 Status: Ordered clopidogrel 75 mg oral tablet 1, tablet, By Mouth, Daily, ASA allergy Patient will need [facility] pill [facility], # 30 tablet, Refills 11, Tot. Refills 11, Maintenance, 10/02/21 13:46:00 EDT, Route to Pharmacy Electronically, [facility], 135, cm, 09/29/21 10:30:00 EDT, He... [...] 07/19/22 17:31:00 EDT, [facility], [facility], cm, 06/04/22 14:59:00 EST, Height, 55.9, kg, 06/04/22 15:07:00 EST, Dry Weight Start Date: 07/19/22 Status: Ordered Lantus Solostar Pen 100 units/mL subcutaneous solution = 20 units, Subcutaneous Injection, Daily, daily in the morning Patient will need [employer] pill dispenser, # 10 mL, 11 Refills, Maintenance, 10/02/21 13:47:00 EDT, Solution, [facility], 135,cm, 09/29/21 10:30:00 EDT, Height Start Date: 10/02/21 Stop Date: 09/27/22 Status: Ordered lisinopril 20 mg oral tablet 1, tablet, By Mouth, Daily, Patient will need [employer] pill dispenser, # 28 tablet, Refills 11, Tot. Refills 11, Maintenance, 10/02/21 13:48:00 EDT, Route to Pharm[facility] Electronically, [facility], 135, cm, 09/29/21 10:30:00 EDT, Height Start Date: 10/02/21 Status: Ordered Pen [place], 30 G x 8 mm BD Ultra [...] 0 Refills, Maintenance, 08/16/22 11:08:00 EDT, Tablet, [facility], Partial fill upon patient request if [...] Gm, 2 Refills, Maintenance, 07/19/22 13:21:00 EDT, [facility], 135, cm, 06/04/22 14:59:00 EST, Height, [...] Active Osteoarthritis Confirmed Active Osteoporosis Confirmed Active *[id number] Part Maker Opal Umana Confirmed Active Non-compliant patient Confirmed Active Respiratory failure requiring intubation 18 Confirmed 2004 Active Tubular adenoma 19 Confirmed 11/2007 Active Urinary incontinence Confirmed Active Venous embolism 20 Confirmed Active 1PFTs normal in 2010 2recurrent 3bilat 87940's 5-Echo at [facility] on 06-21-14, 6Dr. Ingis 7Read Cardiology note form 12-20-15 8-reported by patient. In 2011 had dobutamine stress test, which showed no EKG findings suggestive of ischemia. 9-Minimental today: 91-Jepv-lbwtug today: 11Lt shoulder 12-admission in 2017 for Left sided weakness and associated headache, ruled out from CVA, likely Complex Migraine 13CT scan of the brain done on 05/14/13- unremarkable 14March 2014-the temporal artery biopsy was negative 15Evaluated by Rheumatology ([facility] and [facility]). Impression is fibromyalgia and [...] Team Personnel Name: Gavi Arthur RN Position: [facility] PCO RN Member Role: Primary Care Nurse Name: Malgorzata Ugalde RN Position: [facility] SN RN Member Role: Primary Care Nurse Name: Tsering Casey RN Position: S RN Member Role: Primary Care Nurse Name: Bakari Albert MD Position: [facility] Primary Care Physician Member Role: PCP Address: Address: [address] [place] [id number]- Name: Aliza Lemon RN Position: S RN Member Role: Primary Care Nurse Name: Tsering Johnson RN Position: S RN Member Role: Primary Care Nurse Care Team Related Persons Name: DOYLEJCARLOS Kramer Address: home [address] [place] [address] Name: GRACE MADRIGAL Address: [place] [address] Name: BERENICE DELA CRUZ
--- OUTSIDE RECORDS SUMMARY | 2023-01-15 16:49 | XMS_ITS | Continuity of Care Document ---
Author Name Unknown Organization [facility] Address Unknown Care Team Providers Care High School Math Tutor Name Role Phone Bety KINGHT, Ameena Primary Care Physician Encounter [facility] Date(s): 10/31/21 - 11/30/21 [facility] Allergies, Adverse Reactions, Alerts Substance Reaction [...] 11/14/2214:05:00 EDT, Aerosol, Route to Pharmacy Electronically, NCPDP_[id number], [facility], 135,cm, 10/11/21 9:20:00 EDT, Height Start Date: 11/14/21 Status: Ordered atorvastatin 20 mg oral tablet 1 tablet = 20 mg, By Mouth, Daily, Patient will need [employer] pill dispenser, # 30 tablet, 11 Refills, Maintenance, 10/02/21 13:46:00 EDT, Tablet, [facility], Partial fill upon patient request if the prescription is for a schedule II opioid d... Start Date: 10/02/21 Status: Ordered Calcium 600 +D oral tablet 1 tablet, By Mouth, 2 times a day, calcium 600 and Vit D 400 units, # 90 tablet, 11 Refills, Maintenance, 10/11/21 10:03:00 EDT, [facility], Partial fill upon patient request if the prescription is for a schedule II opioid drug., 1 tablet By M... Start Date: 10/11/21 Status: Ordered clopidogrel 75 mg oral tablet 1, tablet, By Mouth, Daily, ASA allergy Patient will need [employer] pill dispenser, # 30 tablet, Refills 11, Tot. Refills 11, Maintenance, 10/02/21 13:46:00 EDT, Route to Pharmacy Electronically, [facility], 135, cm, 09/29/21 10:30:00 [...] 11/30/21 13:29:00 EDT, Route to Pharmacy Electronically, [facility]... Start Date: 11/30/21 Stop Date: 12/30/21 Status: Ordered Lantus Solostar Pen 100 units/mL subcutaneous solution = 20 units, Subcutaneous Injection, Daily, daily in the morning Patient will need [employer] pill dispenser, # 10 mL, 11 Refills, Maintenance, 10/02/21 13:47:00 EDT, Solution, [facility], 135,cm, 09/29/21 10:30:00 EDT, Height Start Date: 10/02/21 Stop Date: 09/27/22 Status: Ordered lisinopril 20 mg oral tablet 1, tablet, By Mouth, Daily, Patient will need [employer] pill dispenser, # 28 tablet, Refills 11, Tot. Refills 11, Maintenance, 10/02/21 13:48:00 EDT, Route to Pharmacy Electronically, [facility], 135, cm, 09/29/21 10:30:00 EDT, Height Start Date: 10/02/21 Status: Ordered Pen [place], 30 G x 8 mm BD Ultra [...] nfirmed) 17 Active Osteoarthritis(Confirmed) Active Osteoporosis(Confirmed) Active *[id number] Care Partn er Opaldora Lópeze(Confirmed) Active Non-compliant patient(Confirmed) Active Respiratory failure requirin g intubation(Confirmed) 2004 Active Tubular adenoma(Confirmed) 19 11/2007 Active Urinary incontinence(Confirmed) Active Venous embolism(Confirmed) 20 Active 1PFTs normal in 2010 2recurrent 3bilat 522[address]'s 5-Echo at [facility] on 06-21-14, 6Dr. Ingis 7Read Cardiology note form 12-20-15 8-reported by patient. In 2011 had dobutamine stress test, which showed no EKG findings suggestive of ischemia. 9-Minimental today: 90-Azyu-qciupa today: 11Lt shoulder 12-admission in 2016 for Left sided weakness and associated headache, ruled out from CVA, likely Complex Migraine 13CT scan of the brain done on 05/14/13- unremarkable 14March 2013-the temporal artery biopsy was negative 15Evaluated by Rheumatology ([facility] and [facility]). Impression is fibromyalgia and OA 16-refuses CPAP 17reported by patient 18-2ary to asthma exacerbation. At [facility] 19Then again on . Had [...]
--- OUTSIDE RECORDS SUMMARY | 2023-01-15 16:49 | XMS_ITS | Continuity of Care Document ---
Author Name Unknown Organization [facility] Address [address] [place] [address]- Care Team Providers Care Rehabilitation Nurse Name Role Phone Bety KNIGHT, Ameena Primary Care Physician Encounter [facility] Date(s): 08/05/19 - 08/15/19 [facility] [address] [place] [address]- [facility] Attending Physician: Rafa Toney Admitting Physician: AdmRafa son Referring Physician: AdmtrRafa Allergies, Adverse Reactions, Alerts Substance Reaction Severity Status acetaminophen Active penicillin ITCHING, RASH Active tetanus toxoid SWELLING Active aspirin rash Active Motrin Active Benadryl RASH, VOMITING Active Nuts RASH Active Egg Allergy TONGUE SWELLS egg Unknown Active Losartan Potassium 1 spitting christophe blood Active Latex SWELLING Active 1spitting christophe blood Immunizations Given and [...] 12:26:00 EDT, Aerosol, Route to Pharmacy Electronically, [id number], [facility], 135, cm, 07/23/18... Start [...] tablet, By Mouth, Daily in PM, # 30 tablet, Refills 2, Tot. Refills 2, Maintenance, 08/05/19 16:00:00 EDT, Route to Pharmacy Electronically, [facility], 135, cm, 07/23/18 11:47:00 EDT, Height, 84.3, kg, 07/23/18 11:47:00 EDT, Dry... Start Date: 08/05/19 Stop Date: 11/03/19 Status: Ordered omeprazole 20 mg oral enteric coated capsule 1 capsule, By Mouth, 2 times a day, # 56 capsule, 5 Refills, Maintenance, 08/05/19 16:06:00 EDT, [facility], 135, cm, 07/23/18 11:47:00 EDT, Height, 84.3, kg, 07/23/18 11:47:00 EDT, DryWeight Start Date: 08/05/19 Status: Ordered Pen [place], 30 G x 8 mm BD Ultra [...] tablet = 2,000 International_Units, By Mouth, Daily, # 30 tablet, 5 Refills, Maintenance, 06/10/19 14:41:00 EST, [facility], 135, cm, 07/23/18 11:47:00 EDT, Height, 84.3, kg, 07/23/18 11:47:00 EDT, Dry Weight Start Date: 06/10/19 Stop Date: 12/07/19 Status: Ordered Wixela Inhub 500 mcg-50 mcg [...] nfirmed) 14 Active Osteoarthritis(Confirmed) Active Osteoporosis(Confirmed) Active *[id number]-Care Partn er Celia Sánchez(Confirmed) Active Non-compliant patient(Confirmed) Active Respiratory failure requirin g intubation(Confirmed) 2004 Active Tubular adenoma(Confirmed) 16 11/2007 Active Urinary incontinence(Confirmed) Active Venous embolism(Confirmed) 17 Active 1PFTs normal in 2010 2recurrent 3bilat 67703's 5-Echo at [facility] on 06-21-14, 6Dr. Ingis 7Read Cardiology note form 12-20-15 8-reported by patient. In 2011 had dobutamine stress test, which showed no EKG findings suggestive of ischemia. 9Lt shoulder 10CT scan of the brain done on 05/14/13- unremarkable 2013-the temporal artery biopsy was negative 12Evaluated by Rheumatology ([facility] and [facility]). Impression is fibromyalgia and OA 13-refuses CPAP 14reported by patient 15-2ary to asthma exacerbation. At [facility] 16Then again on . Had poor prep so it was recommended to repeat it in 1 year with 2 day of clears and 1 day of golytely. 2 medium sized adenomatous appearing polyps were removed [id number] Social History Social History Type Response Smoking Status Former smoker; Other : 2ppd x 5y; Stopped at age: 34; entered on: 09/11/17 Sex
--- OUTSIDE RECORDS SUMMARY | 2023-01-15 16:49 | XMS_ITS | Continuity of Care Document ---
Author Name Unknown Organization [facility] Address [address] [place] [address]- Care Team Providers Care Network Security Administrator Name Role Phone Bety KNIGHT, Ameena Primary Care Physician Encounter [facility] Date(s): 06/15/19 - 09/04/19 [facility] [address] [place] [address]- [facility] Attending Physician: Ameena Albert MD Admitting Physician: Ameena Albert MD Allergies, [...] 12:26:00 EDT, Aerosol, Route to Pharmacy Electronically, [id number], [facility], 135, cm, 07/23/18... Start [...] 16:06:00 EDT, Route to Pharmacy Electronically, [facility], 135, cm, 07/23/18 11:47:00 EDT, Height, [...] DryWeight Start Date: 08/05/19 Status: Ordered Pen [place], 30 G x 8 mm BD Ultra [...] nfirmed) 14 Active Osteoarthritis(Confirmed) Active Osteoporosis(Confirmed) Active *[id number]-Care Partn er Celia Sánchez(Confirmed) Active Non-compliant patient(Confirmed) Active Respiratory failure requirin g intubation(Confirmed) 2004 Active Tubular adenoma(Confirmed) 16 11/2007 Active Urinary incontinence(Confirmed) Active Venous embolism(Confirmed) 17 Active 1PFTs normal in 2010 2recurrent 3bilat 14367's 5-Echo at [facility] on 06-21-14, 6Dr. Ingis 7Read Cardiology note form 12-20-15 8-reported by patient. In 2011 had dobutamine stress test, which showed no EKG findings suggestive of ischemia. 9Lt shoulder 10CT scan of the brain done on 05/14/13- unremarkable 2013-the temporal artery biopsy was negative 12Evaluated by Rheumatology ([facility] and [facility]). Impression is fibromyalgia and OA 13-refuses CPAP 14reported by patient 15-2ary to asthma exacerbation. At [facility] 16Then again on . Had poor prep so it was recommended to repeat it in 1 year with 2 day of clears and 1 day of golytely. 2 medium sized adenomatous appearing polyps were removed [id number] Social History Social History Type Response Smoking Status Former smoker; Other : 2ppd x 5y; Stopped at age: 34; entered on: 09/11/17 Sex
--- OUTSIDE RECORDS SUMMARY | 2023-01-15 16:49 | XMS_ITS | Continuity of Care Document ---
Author Name Unknown Organization [facility] Address [address] [place] [address]- Care Team Providers Care Hearing Stenographer Name Role Phone Bety KNIGHT, Ameena Primary Care Physician Encounter [facility] Date(s): 11/19/21 - 01/10/22 [facility] [address]- Attending Physician: Not on Staff, Attending MD Allergies, Adverse Reactions, Alerts Substance Reaction [...] 11/14/2214:05:00 EDT, Aerosol, Route to Pharmacy Electronically, NCPDP_[id number], [facility], 135,cm, 10/11/21 9:20:00 EDT, Height Start Date: 11/14/21 Status: Ordered atorvastatin 20 mg oral tablet 1 tablet = 20 mg, By Mouth, Daily, Patient will need [employer] pill dispenser, # 30 tablet, 11 Refills, Maintenance, 10/02/21 13:46:00 EDT, [facility] Partial fill upon patient request if the prescription is for a schedule II opioid d... Start Date: 10/02/21 Status: Ordered Calcium 600 +D oral tablet 1 tablet, By Mouth, 2 times a day, calcium 600 and Vit D 400 units, # 90 tablet, 11 Refills, Maintenance, 10/11/21 10:03:00 EDT, [facility], Partial fill upon patient request if the prescription is for a schedule II opioid drug., 1 tablet By M... Start Date: 10/11/21 Status: Ordered clopidogrel 75 mg oral tablet 1, tablet, By Mouth, Daily, ASA allergy Patient will need [employer] pill dispenser, # 30 tablet, Refills 11, Tot. Refills 11, Maintenance, 10/02/21 13:46:00 EDT, [facility], [facility], cm, 09/29/21 10:30:00 EDT, [...] 12/28/21 12:43:00 EDT, Route to Pharmacy Electronically, [facility], 135, cm, 10/11/21 9:20:00 EDT, Height Start Date: 12/28/21 Status: Ordered Lantus Solostar Pen 100 units/mL subcutaneous solution = 20 units, Subcutaneous Injection, Daily, daily in the morning Patient will need [employer] pill dispenser, # 10 mL, 11 Refills, Maintenance, 10/02/21 13:47:00 EDT, Solution, [facility], 135,cm, 09/29/21 10:30:00 EDT, Height Start Date: 10/02/21 Stop Date: 09/27/22 Status: Ordered lisinopril 20 mg oral tablet 1, tablet, By Mouth, Daily, Patient will need [employer] pill dispenser, # 28 tablet, Refills 11, Tot. Refills 11, Maintenance, 10/02/21 13:48:00 EDT, Route to Pharmacy Electronically, [facility], 135, cm, 09/29/21 10:30:00 EDT, Height Start Date: 10/02/21 Status: Ordered Pen [place], 30 G x 8 mm BD Ultra [...] nfirmed) 17 Active Osteoarthritis(Confirmed) Active Osteoporosis(Confirmed) Active *[id number] Care Partn er Opal Dong(Confirmed) Active Non-compliant patient(Confirmed) Active Respiratory failure requirin g intubation(Confirmed) 2004 Active Tubular adenoma(Confirmed) 11/2007 Active Urinary incontinence(Confirmed) Active Venous embolism(Confirmed) 20 Active 1PFTs normal in 2010 2recurrent 3bilat 59841's 5-Echo at [facility] on 06-21-14, 6Dr. Ingis 7Read Cardiology note form 12-20-15 8-reported by patient. In 2011 had dobutamine stress test, which showed no EKG findings suggestive of ischemia. 9-Minimental today: 15-Mtip-sbbeba today: 11Lt shoulder 12-admission in 2017 for Left sided weakness and associated headache, ruled out from CVA, likely Complex Migraine 13CT scan of the brain done on 05/14/13- unremarkable 14March 2013-the temporal artery biopsy was negative 15Evaluated by Rheumatology ([facility] and [facility]). Impression is fibromyalgia and OA 16-refuses CPAP 17reported by patient 18-2ary to asthma exacerbation. At [facility] 19Then again on . Had poor [...] Team Personnel Name: Ameena Albert MD Address: [address] [place] [id number]
--- OUTSIDE RECORDS SUMMARY | 2023-01-15 16:49 | XMS_ITS | Continuity of Care Document ---
Author Name Unknown Organization [facility] Address [address] [place] [address]- Care Team Providers Care Manufacturing Baker Name Role Phone Bety KNIGHT, Ameena Primary Care Physician Encounter [facility] Date(s): 12/11/21 - 01/10/22 [facility] [address]- Attending Physician: Rafa Toney Admitting Physician: AdmtrRafa Referring Physician: Admtr, Ar8 Allergies, Adverse Reactions, Alerts Substance Reaction Severity [...] 11/14/2214:05:00 EDT, Aerosol, Route to Pharmacy Electronically, NCPDP_[id number], [facility], 135,cm, 10/11/21 9:20:00 EDT, Height Start Date: 11/14/21 Status: Ordered atorvastatin 20 mg oral tablet 1 tablet = 20 mg, By Mouth, Daily, Patient will need Libox pill dispenser, # 30 tablet, 11 Refills, Maintenance, 10/02/21 13:46:00 EDT, Tablet, [facility], Partial fill upon patient request if the prescription is for a schedule II opioid d... Start Date: 10/02/21 Status: Ordered Calcium 600 +D oral tablet 1 tablet, By Mouth, 2 times a day, calcium 600 and Vit D 400 units, # 90 tablet, 11 Refills, Maintenance, 10/11/21 10:03:00 EDT[facility] Partial fill upon patient request if the prescription is for a schedule II opioid drug., 1 tablet By M... Start Date: 10/11/21 Status: Ordered clopidogrel 75 mg oral tablet 1, tablet, By Mouth, Daily, ASA allergy Patient will need Libox pill dispenser, # 30 tablet, Refills 11, Tot. Refills 11, Maintenance, 10/02/21 13:46:00 EDT, [facility], cm, 09/29/21 10:30:00 EDT, He... [...] 12/28/21 12:43:00 EDT, Route to Pharmacy Electronically, [facility], 135, cm, 10/11/21 9:20:00 EDT, Height Start Date: 12/28/21 Status: Ordered Lantus Solostar Pen 100 units/mL subcutaneous solution = 20 units, Subcutaneous Injection, Daily, daily in the morning Patient will need Libox pill dispenser, # 10 mL, 11 Refills, Maintenance, 10/02/21 13:47:00 EDT, Solution, [facility], 135,cm, 09/29/21 10:30:00 EDT, Height Start Date: 10/02/21 Stop Date: 09/27/22 Status: Ordered lisinopril 20 mg oral tablet 1, tablet, By Mouth, Daily, Patient will need Libox pill dispenser, # 28 tablet, Refills 11, Tot. Refills 11, Maintenance, 10/02/21 13:48:00 EDT, Route to Pharmacy Electronically, [facility], 135, cm, 09/29/21 10:30:00 EDT, Height Start Date: 10/02/21 Status: Ordered Pen [place], 30 G x 8 mm BD Ultra [...] nfirmed) 17 Active Osteoarthritis(Confirmed) Active Osteoporosis(Confirmed) Active *[id number] Care Partn er Opal Dong(Confirmed) Active Non-compliant patient(Confirmed) Active Respiratory failure requirin g intubation(Confirmed) 2004 Active Tubular adenoma(Confirmed) 19 11/2007 Active Urinary incontinence(Confirmed) Active Venous embolism(Confirmed) 20 Active 1PFTs normal in 2010 2recurrent 3bilat 72419's 5-Echo at [facility] on 06-21-14, 6Dr. Ingis 7Read Cardiology note form 12-19- 8-reported by patient. In 2011 had dobutamine stress test, which showed no EKG findings suggestive of ischemia. 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 Impression is fibromyalgia and OA 16-refuses CPAP 17reported by patient 18-2ary to asthma exacerbation. At [facility] 19Then again on . Had poor prep so it was recommended to repeat it in 1 year with 2 day of clears and 1 day of golytely. 2 medium sized adenomatous appearing polyps were removed Social History Social History Type Response Smoking Status Former smoker; Other : 2ppd x 5y; Stopped at age: 34; entered on: 09/11/17 Sex Care Team Personnel Name: Bety KNIGHT, Ameena Address: [address] [place] [address]
--- OUTSIDE RECORDS SUMMARY | 2023-01-15 16:49 | XMS_ITS | Continuity of Care Document ---
Author Name Unknown Organization [facility] Address [address] [place] [address]- Care Team Providers Care Community Outreach Advocate Name Role Phone Bety KNIGHT, Ameena Primary Care Physician ( [phone] Encounter [facility] Date(s): 03/29/20 - 04/28/20 [facility] [address] [address]- Allergies, Adverse Reactions, Alerts Substance Reaction Severity [...] 12:26:00 EDT, Aerosol, Route to Pharmacy Electronically, [id number], [facility], 135, cm, 07/23/18... Start [...] DryWeight Start Date: 01/20/20 Status: Ordered Pen [place], 30 G x 8 mm BD Ultra [...] nfirmed) 14 Active Osteoarthritis(Confirmed) Active Osteoporosis(Confirmed) Active *[id number] Care Partn er Sandra Loredo(Confirmed) Active Non-compliant patient(Confirmed) Active Respiratory failure requirin g intubation(Confirmed) 2004 Active Tubular adenoma(Confirmed) 16 11/2007 Active Urinary incontinence(Confirmed) Active Venous embolism(Confirmed) 17 Active 1PFTs normal in 2010 2recurrent 3bilat 08243's 5-Echo at [facility] on 06-21-14, 6Dr. Ingis 7Read Cardiology note form 12-20-15 8-reported by patient. In 2011 had dobutamine stress test, which showed no EKG findings suggestive of ischemia. 9Lt shoulder 10CT scan of the brain done on 05/14/13- unremarkable 2013-the temporal artery biopsy was negative 12Evaluated by Rheumatology ([facility] and [facility]). Impression is fibromyalgia and OA 13-refuses CPAP 14reported by patient 15-2ary to asthma exacerbation. At [facility] 16Then again on . Had poor prep so it was recommended to repeat it in 1 year with 2 day of clears and 1 day of golytely. 2 medium sized adenomatous appearing polyps were removed [id number] Social History Social History Type Response Smoking Status Former smoker; Other : 2ppd x 5y; Stopped at age: 34; entered on: 09/11/17 Sex
--- OUTSIDE RECORDS SUMMARY | 2023-01-15 16:49 | XMS_ITS | Continuity of Care Document ---
Author Name Unknown Organization [facility] Address [address] [place] [address]- Care Team Providers Care Grading Clerk Name Role Phone Bety KNIGHT, Bakari Primary Care Physician Encounter [facility] Date(s): 08/16/22 - 09/15/[address] [address] Attending Physician: Admtr, Rafa Admitting Physician: Admtr, Rafa Referring Physician: Admtr, Ar8 Allergies, Adverse Reactions, [...] mg, By Mouth, Daily, Patient will need Nidmi pill dispenser, # 30 tablet, 5 Refills, Maintenance, 08/19/22 14:18:00 EDT, Tablet, [facility], Partial fill upon patient request if the prescription is for a schedule II opioid Start Date: 08/19/22 Status: Ordered Calcium 600 +D oral tablet 1 tablet, By Mouth, 2 times a day, calcium 600 and Vit D 400 units, # 90 tablet, 11 Refills, Maintenance, 10/11/21 10:03:00 EDT, [facility], Partial fill upon patient request if the prescription is for a schedule II opioid drug., 1 tablet By M... Start Date: 10/11/21 Status: Ordered clopidogrel 75 mg oral tablet 1, tablet, By Mouth, Daily, R1., # 30 tablet, Refills 11, Maintenance, 09/12/22 14:29:00 EDT, [facility] Electron[facility], [facility], 135, cm, 06/04/22 14:59:00 EST, Height, [...] 07/19/22 17:31:00 EDT, Route to Pharmacy Electronically, [facility], 135, cm, 06/04/22 14:59:00 EST, Height, 55.9, kg, 06/04/22 15:07:00 EST, Dry Weight Start Date: 07/19/22 Status: Ordered Lantus Solostar Pen 100 units/mL subcutaneous solution = 20 units, Subcutaneous Injection, Daily, daily in the morning Patient will need N[facility]mi pill dispenser, # 10 mL, 11 Refills, Maintenance, 10/02/21 13:47:00 EDT, Solution, [facility], 135,cm, 09/29/21 10:30:00 EDT, Height Start Date: 10/02/21 Stop Date: 09/27/22 Status: Ordered lisinopril 20 mg oral tablet 1, tablet, By Mouth, Daily, Patient will need Nidmi pill dispenser, # 28 tablet, Refills 11, Tot. Refills 11, Maintenance, 10/02/21 13:48:00 EDT, Route to Pharmacy Electronically, [facility], 135, cm, 09/29/21 10:30:00 EDT, Height Start Date: 10/02/21 Status: Ordered Pen [place], 30 G x 8 mm BD Ultra [...] 0 Refills, Maintenance, 08/16/22 11:08:00 EDT, Tablet, [facility], Partial fill upon patient request if [...] Gm, 2 Refills, Maintenance, 07/19/22 13:21:00 EDT[facility], [facility], 06/04/22 14:59:00 EST, Height, [...] Active Osteoarthritis Confirmed Active Osteoporosis Confirmed Active [id number] Timber Repairer Kayce Byrne Confirmed Active Non-compliant patient Confirmed Active Respiratory failure requiring intubation 18 Confirmed 2004 Active Tubular adenoma 19 Confirmed 11/2007 Active Urinary incontinence Confirmed Active Venous embolism 20 Confirmed Active 1PFTs normal in 2010 2recurrent 3bilat 22921's 5-Echo at [facility] on 06-21-14, 6Dr. Ingis 7Read Cardiology note form 12-20-15 8-reported by patient. In 2011 had dobutamine stress test, which showed no EKG findings suggestive of ischemia. 9-Minimental today: 31-Ffpd-vogsdv today: 11Lt shoulder 12-admission in 2017 for Left sided weakness and associated headache, ruled out from CVA, likely Complex Migraine 13CT scan of the brain done on 05/14/13- unremarkable 14March 2013-the temporal artery biopsy was negative 15Evaluated by [facility]umat[facility] ([facility] Impression is fibromyalgia and OA 16-refuses CPAP 17reported by patient 18-2ary to asthma exacerbation. At [facility] 19Then again on . Had poor [...] Team Personnel Name: Gavi Arthur RN Position: [facility] RN Member Role: Primary Care Nurse Name: Malgorzata Ugalde RN Position: [facility] JOHN RN Member Role: Primary Care Nurse Name: Tsering Casey RN Position: S RN Member Role: Primary Care Nurse Name: Bakari Albert MD Position: [facility] Primary Care Physician Member Role: PCP Address: Address: [address] [place] [address]- Name: Aliza Lemon RN Position: S RN Member Role: Primary Care Nurse Name: Tsering Johnson RN Position: [facility] RN Member Role: Primary Care Nurse Care Team Related Persons Name: JCARLOS DOYLE Address: home [address] [facility] [address] [place] [address] Name: GRACE MADRIGAL Address: [place] [address] Name: BERENICE DELA CRUZ OIL FIELD EQUIPMENT MECHANIC
--- OUTSIDE RECORDS SUMMARY | 2023-01-15 16:50 | XMS_ITS | Continuity of Care Document ---
Author Name Unknown Organization [facility] Address [address] [place] [address]- Care Team Providers Care Fitness Trainer Name Role Phone Ameena Albert MD Primary Care Physician Encounter [facility] Date(s): 04/09/22 - 05/18/22 [facility] [address]- Attending Physician: Ameena Albert MD Admitting Physician: Ameena Albert MD Referring Physician: Ameena Albert MD Allergies, Adverse Reactions, [...] mg, By Mouth, Daily, Patient will need [employer] pill dispenser, # 30 tablet, 11 Refills, Maintenance, 10/02/21 13:46:00 EDT, Tablet, [facility], Partial fill upon patient request if the prescription is for a schedule II opioid d... Start Date: 10/02/21 Status: Ordered Calcium 600 +D oral tablet 1 tablet, By Mouth, 2 times a day, calcium 600 and Vit D 400 units, # 90 tablet, 11 Refills, Maintenance, 10/11/21 10:03:00 EDT, [facility] Partial fill upon patient request if the prescription is for a schedule II opioid drug., 1 tablet By M... Start Date: 10/11/21 Status: Ordered clopidogrel 75 mg oral tablet 1, tablet, By Mouth, Daily, ASA allergy Patient will need [employer] pill dispenser, # 30 tablet, Refills 11, Tot. Refills 11, Maintenance, 10/02/21 13:46:00 EDT, Route to Pharmacy Electronically, [facility], 135, cm, 09/29/21 10:30:00 EDT, He... [...] 05/09/22 18:59:00 EST, Route to Pharmacy Electronically, [facility], 135, cm, 10/11/21 9:20:00 EDT, Height Start Date: 05/09/22 Status: Ordered Lantus Solostar Pen 100 units/mL subcutaneous solution = 20 units, Subcutaneous Injection, Daily, daily in the morning Patient will need [employer] pill dispenser, # 10 mL, 11 Refills, Maintenance, 10/02/21 13:47:00 EDT, Solution, [facility], 135,cm, 09/29/21 10:30:00 EDT, Height Start Date: 10/02/21 Stop Date: 09/27/22 Status: Ordered lisinopril 20 mg oral tablet 1, tablet, By Mouth, Daily, Patient will need [employer] pill dispenser, # 28 tablet, Refills 11, Tot. Refills 11, Maintenance, 10/02/21 13:48:00 EDT, Route to Pharmacy Electronically, [facility], 135, cm, 09/29/21 10:30:00 EDT, Height Start Date: 10/02/21 Status: Ordered Pen [place], 30 G x 8 mm BD Ultra [...] Gm, 2 Refills, Maintenance, 05/09/22 18:39:00 EST, [facility], 135, cm, 10/11/21 9:20:00 EDT, Height [...] Active Osteoarthritis Confirmed Active Osteoporosis Confirmed Active *[id number] Director Of Purchasing Opal Umana Confirmed Active Non-compliant patient Confirmed Active Respiratory failure requiring intubation 18 Confirmed 2004 Active Tubular adenoma 19 Confirmed 11/2007 Active Urinary incontinence Confirmed Active Venous embolism 20 Confirmed Active 1PFTs normal in 2010 2recurrent 3bilat 69828's 5-Echo at [facility] on 06-21-14, 6Dr. Ingis 7Read Cardiology note form 12-20-15 8-reported by patient. In 2011 had dobutamine stress test, which showed no EKG findings suggestive of ischemia. 9-Minimental today: 26-Hfqy-gztvda today: 11Lt shoulder 12-admission in 2016 for Left sided weakness and associated headache, ruled out from CVA, likely Complex Migraine 13CT scan of the brain done on 05/14/13- unremarkable 14March 2013-the temporal artery biopsy was negative 15Evaluated by Rheumatology ([facility] and [facility]). Impression is fibromyalgia and OA 16-refuses CPAP 17reported by patient 18-2ary to asthma exacerbation. At [facility] 19Then again on . Had poor [...] Team Personnel Name: Gavi Arthur RN Position: [facility] PCO RN Member Role: Primary Care Nurse Name: Malgorzata Ugalde RN Position: [facility] SN RN Member Role: Primary Care Nurse Name: Tsering Casey RN Position: S RN Member Role: Primary Care Nurse Name: Ameena Albert MD Position: [facility] Primary Care Physician Member Role: PCP Address: Address: [address] [place] [address]- Name: Aliza Lemon RN Position: [facility] RN Member Role: Primary Care Nurse Name: Tsering Johnson RN Position: [facility] RN Member Role: Primary Care Nurse Care Team Related Persons Name: DOYLEJCARLOS Kramer Address: home [address] [facility] [address] [place] [address] Name: GRACE MADRIGAL Address: [place] [address] Name: BERENICE DELA CRUZ SENIOR EDUCATION SPECIALIST
--- OUTSIDE RECORDS SUMMARY | 2023-01-15 16:50 | XMS_ITS | Continuity of Care Document ---
Author Name Unknown Organization [facility] Address [address] [place] [address]- Care Team Providers Care Relief Master Name Role Phone Bety KNIGHT, Ameena Primary Care Physician ( [phone] [place] [facility] [place] 09/21/20 - 10/21/20 [facility] [address] [address]- Attending Physician: Rafa Toney Admitting Physician: AdmtrRafa Referring Physician: Admtr, ArEna Allergies, Adverse Reactions, Alerts Substance Reaction [...] 08/31/20 16:44:00 EDT, Route to Pharmacy Electronically, [facility] #[id number], 135, cm, 08/31/20 16:06:00 EDT, [...] 0 Refills, Maintenance, 08/31/20 16:48:00 EDT, Solution, [facility]/pharmacy #[id number], 135, cm, 08/31/20 16:06:00 EDT, Height Start Date: 08/31/20 Stop Date: 09/30/20 Status: Ordered lisinopril 20 mg oral tablet 1, tablet, By Mouth, Daily, # 28 tablet, Refills 3, Tot. Refills 3, Maintenance, 09/21/20 12:59:00 EDT, Route to Pharmacy Electronically, [facility]/pharmacy #[id number], 135, cm, 09/21/20 11:34:00 EDT, Height Start Date: 09/21/20 Status: Ordered Pen [place], 30 G x 8 mm BD Ultra [...] nfirmed) 15 Active Osteoarthritis(Confirmed) Active Osteoporosis(Confirmed) Active *[id number] Care Partn er Sandra Loredo(Confirmed) Active Non-compliant patient(Confirmed) Active Respiratory failure requirin g intubation(Confirmed) 16 2004 Active Tubular adenoma(Confirmed) 17 11/2007 Active Urinary incontinence(Confirmed) Active Venous embolism(Confirmed) 18 Active 1PFTs normal in 2010 2recurrent 3bilat 14145's 5-Echo at [facility] on 06-21-14, 6Dr. Ingis 7Read Cardiology note form 12-20-15 8-reported by patient. In 2011 had dobutamine stress test, which showed no EKG findings suggestive of ischemia. 1-Oagd-lzyagu today: 10Lt shoulder 11CT scan of the brain done on 05/14/13- unremarkable 12March 2013-the temporal artery biopsy was negative 13Evaluated by Rheumatology ([facility] and [address]). Impression is fibromyalgia and OA 14-refuses CPAP 15reported by patient 16-2ary to asthma exacerbation. At [facility] 17Then again on . Had poor prep so it was recommended to repeat it in 1 year with 2 day of clears and 1 day of golytely. 2 medium sized adenomatous appearing polyps were removed [id number] Social History Social History Type Response Smoking Status Former smoker; Other : 2ppd x 5y; Stopped at age: 34; entered on: 09/11/17 Sex
--- OUTSIDE RECORDS SUMMARY | 2023-01-15 16:50 | XMS_ITS | Continuity of Care Document ---
Author Name Unknown Organization [facility] Address Unknown Care Team Providers Care Infant Nanny Name Role Phone Bety KNIGHT, Ameena Primary Care Physician Encounter [facility] [place] Date(s): 12/19/20 - 01/27/21 [facility] Attending Physician: Ameena Albert MD Admitting Physician: [...] Height Start Date: 11/27/20 Status: Ordered Pen [place], 30 G x 8 mm BD Ultra [...] nfirmed) 15 Active Osteoarthritis(Confirmed) Active Osteoporosis(Confirmed) Active *[id number] Care Partn er Sandra Loredo(Confirmed) Active Non-compliant patient(Confirmed) Active Respiratory failure requirin g intubation(Confirmed) 2004 Active Tubular adenoma(Confirmed) 17 11/2007 Active Urinary incontinence(Confirmed) Active Venous embolism(Confirmed) 18 Active 1PFTs normal in 2010 2recurrent 3bilat 00748's 5-Echo at [facility] on 06-21-14, 6Dr. Ingis 7Read Cardiology note form 12-20-15 8-reported by patient. In 2011 had dobutamine stress test, which showed no EKG findings suggestive of ischemia. 4-Svco-zgrkis today: 10Lt shoulder 11CT scan of the brain done on 05/14/13- unremarkable 12March 2013-the temporal artery biopsy was negative 13Evaluated by Rheumatology ([facility] and [facility]). Impression is fibromyalgia and OA 14-refuses CPAP 15reported by patient 16-2ary to asthma exacerbation. At [facility] 17Then again on . Had poor prep so it was recommended to repeat it in 1 year with 2 day of clears and 1 day of golytely. 2 medium sized adenomatous appearing polyps were removed [id number] Social History Social History Type Response Smoking Status Former smoker; Other : 2ppd x 5y; Stopped at age: 34; entered on: 09/11/17 Sex
--- OUTSIDE RECORDS SUMMARY | 2023-01-15 16:50 | XMS_ITS | Continuity of Care Document ---
Author Name Unknown Organization [facility] Address [address] [place] [address]- Care Team Providers Care Coach Wirer Name Role Phone Bety KNIGHT, Ameena Primary Care Physician Encounter [facility] Date(s): 10/21/22 - 11/20/22 [facility] [address]- [place] Allergies, Adverse Reactions, Alerts Substance Reaction [...] tablet, 1 Refills, Maintenance, 11/05/22 13:52:00 EDT, [facility], Partial fill upon patient request if the prescription is for a schedule II opioid drug., 1 tablet By Mo... Start Date: 11/05/22 Status: Ordered clopidogrel 75 mg oral tablet 1, tablet, By Mouth, Daily, R1., # 30 tablet, Refills 11, Maintenance, 09/12/22 14:29:00 EDT, [facility] Electronically, [facility], 135, cm, 06/04/22 14:59:00 EST, [...] 07/19/22 17:31:00 EDT, Route to Pharmacy Electronically, [facility], 135, cm, 06/04/22 14:59:00 EST, Height, 55.9, kg, 06/04/22 15:07:00 EST, Dry Weight Start Date: 07/19/22 Status: Ordered Lantus Solostar Pen 100 units/mL subcutaneous solution = 20 units, Subcutaneous Injection, Daily, daily in the morning Patient will need [employer] pill dispenser, # 10 mL, 2 Refills, Maintenance, 11/05/22 13:51:00 EDT, Solution, [facility], 135, cm, 06/04/22 14:59:00 EST, Height, 55.9, kg, ... Start Date: 11/05/22 Stop Date: 02/03/23 Status: Ordered lisinopril 20 mg oral tablet 1, tablet, By Mouth, Daily, Patient will need [facility] pill dispenser, # 28 tablet, Refills 11, Tot. 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 Ingis 7Read Cardiology note form 12-20-15 8-reported by patient. In 2011 had dobutamine stress test, which showed no EKG findings suggestive of ischemia. 9-Minimental today: 59-Vykz-tplnqi today: 11Lt shoulder 12-admission in 2017 for Left sided weakness and associated headache, ruled out from CVA, likely Complex Migraine 13CT scan of the brain done on 05/14/13- unremarkable 14March 2013-the temporal artery biopsy was negative 15Evaluated by Rheumatology ([facility] Impression is fibromyalgia and OA 16-refuses CPAP 17reported by patient 18-2ary to asthma exacerbation. At [facility] 19Then again on . Had poor [...] Care Nurse Name: Ameena Albert MD Position: [facility] Physician - Primary Care Member Role: PCP Address: Address: [address] [place] [address]- [place] Name: Aliza Lemon RN Position: S RN Member Role: Primary Care Nurse Name: Tsering Johnson RN Position: S RN Member Role: Primary Care Nurse Care Team Related Persons Name: DOYLEJCARLOS Kramer Address: home [address] [facility] [address] [place] [address] Name: GRACE MADRIGAL Address: [place] [address] Name: BERENICE DELA CRUZ CHARGE COORDINATOR
--- OUTSIDE RECORDS SUMMARY | 2023-01-15 16:50 | XMS_ITS | Continuity of Care Document ---
Author Name Unknown Organization [facility] Address Unknown Care Team Providers Care Brake Shoe Rebuilder Name Role Phone Bety KNIGHT, Ameena Primary Care Physician Encounter [facility] [place] Date(s): 09/06/21 - 10/06/21 [facility] Allergies, Adverse Reactions, Alerts Substance Reaction [...] mg, By Mouth, Daily, Patient will need [employer] pill dispenser, # 30 tablet, 11 Refills, Maintenance, 10/02/21 13:46:00 EDT, Tablet, [facility], Partial fill upon patient request if the prescription is for a schedule II opioid d... Start Date: 10/02/21 Status: Ordered Calcium 600 +D oral tablet 1 tablet, By Mouth, 3 times a day, calcium 600 and Vit D 400 units, # 90 tablet, 11 Refills, Maintenance, 10/02/21 13:33:00 EDT, [facility], Partial fill upon patient request if the prescription is for a schedule II opioid drug., 1 tablet By M... Start Date: 10/02/21 Status: Ordered clopidogrel 75 mg oral tablet 1, tablet, By Mouth, Daily, ASA allergy Patient will need [facility] pill dispenser, # 30 tablet, Refills 11, Tot. Refills 11, Maintenance, 10/02/21 13:46:00 EDT, Route to Pharmacy Electronically, [facility], 135, cm, 09/29/21 10:30:00 EDT, He... [...] 09/29/21 11:07:00 EDT, Route to Pharmacy Electronically, [facility]/pharmacy #[id number], Partial fill upon patient request if the prescription is... Start Date: 09/29/21 Stop Date: 10/29/21 Status: Ordered Lantus Solostar Pen 100 units/mL subcutaneous solution = 20 units, Subcutaneous Injection, Daily, daily in the morning Patient will need [facility] pill dispenser, # 10 mL, 11 Refills, Maintenance, 10/02/21 13:47:00 EDT, Solution, [facility], 135,cm, 09/29/21 10:30:00 EDT, Height Start Date: 10/02/21 Stop Date: 09/27/22 Status: Ordered lisinopril 20 mg oral tablet 1, tablet, By Mouth, Daily, Patient will need [facility] pill dispenser, # 28 tablet, Refills 11, Tot. Refills 11, Maintenance, 10/02/21 13:48:00 EDT, Route to Pharmacy Electronically, [facility], 135, cm, 09/29/21 10:30:00 EDT, Height Start Date: 10/02/21 Status: Ordered Pen [place], 30 G x 8 mm BD Ultra [...] nfirmed) 15 Active Osteoarthritis(Confirmed) Active Osteoporosis(Confirmed) Active *[id number] Care Partn er Opaldora Lópeze(Confirmed) Active Non-compliant patient(Confirmed) Active Respiratory failure requirin g intubation(Confirmed) 16 2004 Active Tubular adenoma(Confirmed) 17 11/2007 Active Urinary incontinence(Confirmed) Active Venous embolism(Confirmed) 18 Active 1PFTs normal in 2010 2recurrent 3bilat 35895's 5-Echo at [facility] on 06-21-14, 6Dr. Ingis 7Read Cardiology note form 12-19- 8-reported by patient. In 2011 had dobutamine stress test, which showed no EKG findings suggestive of ischemia. 9-Gvdg-eqenpq today: 10Lt shoulder 11CT scan of the brain done on 05/14/13- unremarkable 12March 2013-the temporal artery biopsy was negative 13Evaluated by Rheumatology ([facility] and [facility]). Impression is fibromyalgia and OA 14-refuses CPAP 15reported by patient 16-2ary to asthma exacerbation. At [facility] 17Then again on . Had poor prep so it was recommended to repeat it in 1 year with 2 day of clears and 1 day of golytely. 2 medium sized adenomatous appearing polyps were removed [id number] Social History Social History Type Response Smoking Status Former smoker; Other : 2ppd x 5y; Stopped at age: 34; entered on: 09/11/17 Sex
--- OUTSIDE RECORDS SUMMARY | 2023-01-15 16:50 | XMS_ITS | Continuity of Care Document ---
Author Name Unknown Organization [facility] Address [address] [place] [address]- Care Team Providers Care Inside Sales Administrator Name Role Phone Bety KNIGHT, Ameena Primary Care Physician [place] [facility] [place] Date(s): 01/11/22 - 02/10/22 [facility] [address]- [place] Allergies, Adverse Reactions, Alerts Substance Reaction [...] 11/14/2214:05:00 EDT, Aerosol, Route to Pharmacy Electronically, [id number], [facility], 135,cm, 10/11/21 9:20:00 EDT, Height Start Date: 11/14/21 Status: Ordered atorvastatin 20 mg oral tablet 1 tablet = 20 mg, By Mouth, Daily, Patient will need [employer]Mobi pill dispenser, # 30 tablet, 11 Refills, Maintenance, 10/02/21 13:46:00 EDT, Tablet, [facility], Partial fill upon patient request if the prescription is for a schedule II opioid d... Start Date: 10/02/21 Status: Ordered Calcium 600 +D oral tablet 1 tablet, By Mouth, 2 times a day, calcium 600 and Vit D 400 units, # 90 tablet, 11 Refills, Maintenance, 10/11/21 10:03:00 EDT, [facility], Partial fill upon patient request if the prescription is for a schedule II opioid drug., 1 tablet By M... Start Date: 10/11/21 Status: Ordered clopidogrel 75 mg oral tablet 1, tablet, By Mouth, Daily, ASA allergy Patient will need [facility] pill dispenser, # 30 tablet, Refills 11, Tot. Refills 11, Maintenance, 10/02/21 13:46:00 EDT, Route to Pharmacy Electronically, [facility], 135, cm, 09/29/21 10:30:00 EDT, He... [...] AM, # 60 capsule, Refills 0, Maintenance, 01/24/22 16:49:00 EDT, Route to Pharmacy Electronically, [facility], 135, cm, 10/11/21 9:20:00 EDT, Height Start Date: 01/24/22 Status: Ordered Lantus Solostar Pen 100 units/mL subcutaneous solution = 20 units, Subcutaneous Injection, Daily, daily in the morning Patient will need [employer]obi pill dispenser, # 10 mL, 11 Refills, Maintenance, 10/02/21 13:47:00 EDT, Solution, [facility], 135,cm, 09/29/21 10:30:00 EDT, Height Start Date: 10/02/21 Stop Date: 09/27/22 Status: Ordered lisinopril 20 mg oral tablet 1, tablet, By Mouth, Daily, Patient will need [employer] pill dispenser, # 28 tablet, Refills 11, Tot. 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 Ingis 7Read Cardiology note form 12-20-15 8-reported by patient. In 2011 had dobutamine stress test, which showed no EKG findings suggestive of ischemia. 9-Minimental today: 66-Ppfk-byijed today: 11Lt shoulder 12-admission in 2017 for Left sided weakness and associated headache, ruled out from CVA, likely Complex Migraine 13CT scan of the brain done on 05/14/13- unremarkable 14March 2013-the temporal artery biopsy was negative 15Evaluated by Rheumatology ([facility] and [facility]). Impression is fibromyalgia and OA 16-refuses CPAP 17reported by patient 18-2ary to asthma exacerbation. At [facility] 19Then again on . [...] Personnel Name: Ameena Albert MD Address: Address: [address] [place] [address]-
--- OUTSIDE RECORDS SUMMARY | 2023-01-15 16:50 | XMS_ITS | Continuity of Care Document ---
Author Name Unknown Organization [facility] Address [address] [place] [address]- Care Team Providers Care Learning Specialist Name Role Phone Bety KNIGHT, Ameena Primary Care Physician Encounter [facility] Date(s): 06/04/22 - 07/24/22 [facility] [address]- Attending Physician: Ameena Albert MD Admitting Physician: [...] tablet, 11 Refills, Maintenance, 10/11/21 10:03:00 EDT, [facility], Partial fill upon patient request if the prescription is for a schedule II opioid drug., 1 tablet By M... Start Date: 10/11/21 Status: Ordered clopidogrel 75 mg oral tablet 1, tablet, By Mouth, Daily, ASA allergy Patient will need Known pill dispenser, # 30 tablet, Refills 11, Tot. Refills 11, Maintenance, 10/02/21 13:46:00 EDT, Route to Pharmacy Electronically, [facility], 135, cm, 09/29/21 10:30:00 EDT, He... [...] 07/19/22 17:31:00 EDT, Route to Pharmacy Electronically, [facility], 135, cm, 06/04/22 14:59:00 EST, Height, 55.9, kg, 06/04/22 15:07:00 EST, Dry Weight Start Date: 07/19/22 Status: Ordered Lantus Solostar Pen 100 units/mL subcutaneous solution = 20 units, Subcutaneous Injection, Daily, daily in the morning Patient will need Known pill dispenser, # 10 mL, 11 Refills, Maintenance, 10/02/21 13:47:00 EDT, [facility], [facility],cm, 09/29/21 10:30:00 EDT, Height Start Date: 10/02/21 Stop Date: 09/27/22 Status: Ordered lisinopril 20 mg oral tablet 1, tablet, By Mouth, Daily, Patient will need Known pill dispenser, # 28 tablet, Refills 11, Tot. 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 Ingis 7Read Cardiology note form 12-20-15 8-reported by patient. In 2011 had dobutamine stress test, which showed no EKG findings suggestive of ischemia. 9-Minimental today: 93-Qgvn-dadiqq today: 11Lt shoulder 12-admission in 2017 for Left sided weakness and associated headache, ruled out from CVA, likely Complex Migraine 13CT scan of the brain done on 05/14/13- unremarkable 14March 2013-the temporal artery biopsy was negative 15Evaluated by Rheumatology ([facility] and [facility]). Impression is fibromyalgia and OA 16-refuses CPAP 17reported by patient 18-2ary to asthma exacerbation. At [facility] 19Then again on . Had poor prep [...] Team Personnel Name: Gavi Arthur RN Position: [facility] PCO RN Member Role: Primary Care Nurse Name: Malgorzata Ugalde RN Position: [facility] SN RN Member Role: Primary Care Nurse Name: Tsering Casey RN Position: S RN Member Role: Primary Care Nurse Name: Ameena Albert MD Position: [facility] Primary Care Physician Member Role: PCP Address: Address: [address] [place] [id number]- Name: Aliza Lemon RN Position: S RN Member Role: Primary Care Nurse Name: Tsering Johnson RN Position: S RN Member Role: Primary Care Nurse Care Team Related Persons Name: DOYLEJCARLOS Kramer Address: home [address] [address] [place] [address] Name: GRACE MADRIGAL Address: [place] [address] Name: BERENICE DELA CRUZ
--- OUTSIDE RECORDS SUMMARY | 2023-01-15 16:50 | XMS_ITS | Continuity of Care Document ---
Author Name Unknown Organization [facility] Address Unknown Care Team Providers Care Foundry Manager Name Role Phone Bety KNIGHT, Ameena Primary Care Physician ( [phone] Encounter [facility] [place] Date(s): 09/12/21 - 10/12/21 [facility] Allergies, Adverse Reactions, Alerts Substance Reaction Severity Status acetaminophen Active penicillin ITCHING, RASH Active aspirin rash Active tetanus toxoid SWELLING Active Motrin Active Benadryl RASH, VOMITING Active Latex SWELLING Active Nuts RASH Active Egg Allergy TONGUE SWELLS egg Unknown Active Losartan Potassium 1 spitting christophe blood Active 1spitting crhistophe blood Immunizations Given and Recorded Vaccine Date [...] mg, By Mouth, Daily, Patient will need [employer] pill dispenser, # 30 tablet, 11 Refills, Maintenance, 10/02/21 13:46:00 EDT, Tablet, [facility], Partial fill upon patient request if the prescription is for a schedule II opioid d... Start Date: 10/02/21 Status: Ordered Calcium 600 +D oral tablet 1 tablet, By Mouth, 2 times a day, calcium 600 and Vit D 400 units, # 90 tablet, 11 Refills, Maintenance, 10/11/21 10:03:00 EDT, [facility], Partial fill upon patient request if the prescription is for a schedule II opioid drug., 1 tablet By M... Start Date: 10/11/21 Status: Ordered clopidogrel 75 mg oral tablet 1, tablet, By Mouth, Daily, ASA allergy Patient will need [facility] pill dispenser, # 30 tablet, Refills 11, Tot. Refills 11, Maintenance, 10/02/21 13:46:00 EDT, Route to Pharmacy Electronically, [facility], 135, cm, 09/29/21 10:30:00 EDT, He... [...] 10/09/21 20:56:00 EDT, Route to Pharmacy Electronically, [facility], Partial fill upon patient request if the pr... Start Date: 10/09/21 Stop Date: 11/08/21 Status: Ordered Lantus Solostar Pen 100 units/mL subcutaneous solution = 20 units, Subcutaneous Injection, Daily, daily in the morning Patient will need [facility] pill dispenser, # 10 mL, 11 Refills, Maintenance, 10/02/21 13:47:00 EDT, Solution, [facility], 135,cm, 09/29/21 10:30:00 EDT, Height Start Date: 10/02/21 Stop Date: 09/27/22 Status: Ordered lisinopril 20 mg oral tablet 1, tablet, By Mouth, Daily, Patient will need [facility] pill dispenser, # 28 tablet, Refills 11, Tot. Refills 11, Maintenance, 10/02/21 13:48:00 EDT, Route to Pharmacy Electronically, [facility], 135, cm, 09/29/21 10:30:00 EDT, Height Start Date: 10/02/21 Status: Ordered Pen [place], 30 G x 8 mm BD Ultra [...] nfirmed) 16 Active Osteoarthritis(Confirmed) Active Osteoporosis(Confirmed) Active *[id number] Care Partn er Opal Umana(Confirmed) Active Non-compliant patient(Confirmed) Active Respiratory failure requirin g intubation(Confirmed) 17 2004 Active Tubular adenoma(Confirmed) 18 11/2007 Active Urinary incontinence(Confirmed) Active Venous embolism(Confirmed) 19 Active 1PFTs normal in 2010 2recurrent 3bilat 95659's 5-Echo at [facility] on 06-21-14, 6Dr. Ingis 7Read Cardiology note form 12-19- 8-reported by patient. In 2011 had dobutamine stress test, which showed no EKG findings suggestive of ischemia. 9-Minimental today: 90-Mglr-lnfftu today: 11Lt shoulder 12CT scan of the brain done on 05/14/13- unremarkable 13March 2013-the temporal artery biopsy was negative 14Evaluated by Rheumatology ([facility] and [facility]). Impression is fibromyalgia and OA 15-refuses CPAP 16reported by patient 17-2ary to asthma exacerbation. At [facility] 18Then again on . Had poor prep so it was recommended to repeat it in 1 year with 2 day of clears and 1 day of golytely. 2 medium sized adenomatous appearing polyps were removed [id number] Social History Social History Type Response Smoking Status Former smoker; Other : 2ppd x 5y; Stopped at age: 34; entered on: 09/11/17 Sex
--- OUTSIDE RECORDS SUMMARY | 2023-01-15 16:50 | XMS_ITS | Continuity of Care Document ---
Author Name Unknown Organization [facility] Address [address] [place] [address]- Care Team Providers Care Boomswing Operator Name Role Phone Bety KNIGHT, Ameena Primary Care Physician Encounter [facility] [place] Date(s): 12/02/22 - 01/01/23 [facility] [address]- [place] Allergies, Adverse Reactions, Alerts Substance Reaction [...] Refills, Maintenance, 12/10/22 16:06:00 EDT, Tablet, [id number], Partial fill upon patient request if the prescription is for a schedule II opioid drug., 135, cm, 12/09/22 11:51:00 EDT, Height,... Start Date: 12/10/22 Status: Ordered clopidogrel 75 mg oral tablet 1, tablet, By Mouth, Daily, Hx of CVA and ASA allergy, # 90 tablet, Refills 3, Tot. Refills 3, Maintenance, 12/10/22 16:55:00 EDT, Route to Pharmacy Electronically, [facility]/pharmacy #[id number], please note that diagnosis was changed and [...] 16:08:00 EDT, Route to Pharmacy Electronically, [facility]/pharmacy #[id number], 135, cm, 12/09/22 11:51:00 EDT, Height, 55.9, kg, 06/04/22 15:07:00 EST, Dry Weight Start Date: 12/10/22 Stop Date: 12/05/23 Status: Ordered Lantus Solostar Pen 100 units/mL subcutaneous solution = 20 units, Subcutaneous Injection, Daily, daily in the morning, # 15 mL, 2 Refills, Maintenance, 12/10/22 16:12:00 EDT, Solution, [facility]/pharmacy #[id number], 135, cm, 12/09/22 11:51:00 EDT, Height, 55.9, kg, 06/04/22 15:07:00 EST, Dry Weight Start Date: 12/10/22 Stop Date: 09/06/23 Status: Ordered lisinopril 20 mg oral tablet 1, tablet, By Mouth, Daily, # 90 tablet, Refills 3, Tot. Refills 3, Maintenance, 12/10/22 16:06:00 EDT, Route to Pharmacy Electronically, [facility]/pharmacy #[id number], 135, cm, 12/09/22 11:51:00 EDT, Height, 55.9, kg, 06/04/22 15:07:00 EST, Dry Weight Start Date: 12/10/22 Stop Date: 12/05/23 Status: Ordered Pen [place], 30 G x 8 mm BD Ultra [...] 3 Refills, Maintenance, 12/10/22 16:10:00 EDT, [facility]/pharmacy #[id number], Partial fill upon patient request if [...] Required Details, Route to Pharmacy Electronically, [facility]/pharmacy #[id number], Partial fill upon... 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 Ingis 7 She has multiple chest discomfort sensations none of which are particularly anginal in nature. Shehas had multiple stress tests in the past all of which is been negative. 8Read Cardiology note form 8-24-16 9-reported by patient. In 2011 had dobutamine stress test, which showed no EKG findings suggestive of ischemia. 10-Minimental today: 58-Dinh-ycglhc today: 12Lt shoulder 13-admission in 2017 for Left sided weakness and associated headache, ruled out from CVA, likely Complex Migraine 14CT scan of the brain done on 05/14/13- unremarkable 15March 2013-the temporal artery biopsy was negative 16Evaluated by Rheumatology ([facility] and [facility] Impression is fibromyalgia and OA 17-refuses CPAP 18-2ary to asthma exacerbation. At [facility] [...] Gavi Arthur RN Position: [facility] Nurse Member Role: Primary Care Nurse Name: Malgorzata Ugalde RN Position: [facility] SN RN Member Role: Primary Care Nurse Name: Tsering Casey RN Position: S RN Member Role: Primary Care Nurse Name: Ameena Albert MD Position: S Physician - Primary Care Member Role: PCP Address: Address: [address] [place] [id number] Name: Aliza Lemon RN Position: S RN Member Role: Primary Care Nurse Name: Tsering Johnson RN Position: S RN Member Role: Primary Care Nurse Care Team Related Persons Name: DOYLEJCARLOS Kramer Address: home [address] [facility] [address] [place] [address] Name: JUAN M SILVA Name: GRACE MADRIGAL Address: [place] [address] Name: BERENICE DELA CRUZ IMMIGRATION JUDGE
--- OUTSIDE RECORDS SUMMARY | 2023-01-15 16:50 | XMS_ITS | Continuity of Care Document ---
Author Name Unknown Organization [facility] ter Address [address] [place] [address]- Care Team Providers Care Payroll And Benefits Assistant Name Role Phone Bety KNIGHT, Ameena Primary Care Physician Encounter [place] Date(s): 11/05/21 - 11/05/21 [facility] [address] [place] [address]- Discharge Disposition: A-D/C Walkout Attending Physician: Not on Staff, Attending MD Admitting Physician: Not on Staff, Admitting MD Referring Physician: Not on Staff, Referring MD [...] tablet, 11 Refills, Maintenance, 10/11/21 10:03:00 [facility] upon patient request if the prescription is for a schedule II opioid drug., 1 tablet By M... Start Date: 10/11/21 Status: Ordered clopidogrel 75 mg oral tablet 1, tablet, By Mouth, Daily, ASA allergy Patient will need [facility] pill dispenser, # 30 tablet, Refills 11, Tot. Refills 11, Maintenance, 10/02/21 13:46:00 EDT, Route to Pharmacy Electronically, [facility], 135, cm, 09/29/21 10:30:00 EDT, He... [...] 10/31/21 15:01:00 EDT, Route to Pharmacy Electronically, [facility], Partial fill upon patient request if the pr... Start Date: 10/31/21 Stop Date: 12/30/21 Status: Ordered Lantus Solostar Pen 100 units/mL subcutaneous solution = 20 units, Subcutaneous Injection, Daily, daily in the morning Patient will need [facility] pill dispenser, # 10 mL, 11 Refills, Maintenance, 10/02/21 13:47:00 EDT, Solution, [facility], 135,cm, 09/29/21 10:30:00 EDT, Height Start Date: 10/02/21 Stop Date: 09/27/22 Status: Ordered lisinopril 20 mg oral tablet 1, tablet, By Mouth, Daily, Patient will need [facility] pill dispenser, # 28 tablet, Refills 11, Tot. Refills 11, Maintenance, 10/02/21 13:48:00 EDT, Route to Pharmacy Electronically, [facility], 135, cm, 09/29/21 10:30:00 EDT, Height Start Date: 10/02/21 Status: Ordered Pen [place], 30 G x 8 mm BD Ultra [...] nfirmed) 17 Active Osteoarthritis(Confirmed) Active Osteoporosis(Confirmed) Active *[id number] Care Partn er Opal Dong(Confirmed) Active Non-compliant patient(Confirmed) Active Respiratory failure requirin g intubation(Confirmed) 2004 Active Tubular adenoma(Confirmed) 19 11/2007 Active Urinary incontinence(Confirmed) Active Venous embolism(Confirmed) 20 Active 1PFTs normal in 2010 2recurrent 3bilat 62251's 5-Echo at [facility] on 06-21-14, 6Dr. Ingis 7Read Cardiology note form 12-20-15 8-reported by patient. In 2011 had dobutamine stress test, which showed no EKG findings suggestive of ischemia. 9-Minimental today: 52-Kloo-gmpeui today: 11Lt shoulder 12-admission in 2017 for Left sided weakness and associated headache, ruled out from CVA, likely Complex Migraine 13CT scan of the brain done on 05/14/13- unremarkable 14March 2013-the temporal artery biopsy was negative 15Evaluated by Rheumatology ([facility] and [facility] Impression is fibromyalgia and OA 16-refuses CPAP 17reported by patient 18-2ary to asthma exacerbation. At [facility] 19Then again on . Had poor prep so it was recommended to repeat it in 1 year with 2 day of clears and 1 day of golytely. 2 medium sized adenomatous appearing polyps were removed Vital Signs Most recent to oldest [Reference Range]: 1 2 Oxygen Saturation [94-100 %] 99 % (11/05/21 1:16 PM) 99 % (11/05/21 12:55 PM) Pulse Rate [55-90 bpm] 94 bpm *H* (11/05/21 1:16 PM) 94 bpm *H* (11/05/21 12:55 PM) Blood Pressure [90-138/55-84 mm Hg] 144/ 102mm Hg *H* (11/05/21 1:16 PM) Respiratory Rate [16-30 br/min] 17 br/mi n (11/05/21 1:16 PM) Temperature [96.8-100.4 DegF] 98.4 DegF (11/05/21 1:16 PM) Mode of Delivery (Oxygen) Room air (11/05/21 1:16 PM) Room air (11/05/21 12:55 PM) Blood pressure sites Arm, left (11/05/21 1:16 PM) Temperature Route Oral (11/05/21 1:16 PM) Social History Social History Type Response Smoking Status Former smoker; Other : 2ppd x 5y; Stopped at age: 34; entered on: 09/11/17 Sex
--- OUTSIDE RECORDS SUMMARY | 2023-01-15 16:50 | XMS_ITS | Continuity of Care Document ---
Author Name Unknown Organization [facility] Address [address] [place] [address]- Care Team Providers Care Optical Technician Name Role Phone Bety KNIGHT, Bakari Primary Care Physician Encounter [facility] Date(s): 10/28/22 - 12/14/22 [facility] [address] [place] [address]- Attending Physician: Alonzo BERRY, Ronel Schmitz Allergies, [...] Refills, Maintenance, 12/10/22 16:06:00 EDT, Tablet, [id number], Partial fill upon patient request if the prescription is for a schedule II opioid drug., 135, cm, 12/09/22 11:51:00 EDT, Height,... Start Date: 12/10/22 Status: Ordered clopidogrel 75 mg oral tablet 1, tablet, By Mouth, Daily, Hx of CVA and ASA allergy, # 90 tablet, Refills 3, Tot. Refills 3, Maintenance, 12/10/22 16:55:00 EDT, Route to Pharmacy Electronically, [facility]/pharmacy #[id number], please note that diagnosis was changed and [...] 12/10/22 16:08:00 EDT, Route to Pharmacy Electronically, [facility]/pharmacy #[id number], 135, cm, 12/09/22 11:51:00 EDT, Height, 55.9, kg, 06/04/22 15:07:00 EST, Dry Weight Start Date: 12/10/22 Stop Date: 12/05/23 Status: Ordered Lantus Solostar Pen 100 units/mL subcutaneous solution = 20 units, Subcutaneous Injection, Daily, daily in the morning, # 15 mL, 2 Refills, Maintenance, 12/10/22 16:12:00 EDT, Solution, [facility]/pharmacy #[id number], 135, cm, 12/09/22 11:51:00 EDT, Height, 55.9, kg, 06/04/22 15:07:00 EST, Dry Weight Start Date: 12/10/22 Stop Date: 09/06/23 Status: Ordered lisinopril 20 mg oral tablet 1, tablet, By Mouth, Daily, # 90 tablet, Refills 3, Tot. Refills 3, Maintenance, 12/10/22 16:06:00 EDT, Route to Pharmacy Electronically, [facility]/pharmacy #[id number], 135, cm, 12/09/22 11:51:00 EDT, Height, 55.9, kg, 06/04/22 15:07:00 EST, Dry Weight Start Date: 12/10/22 Stop Date: 12/05/23 Status: Ordered Pen [place], 30 G x 8 mm BD Ultra [...] tablet, 3 Refills, Maintenance, 12/10/22 16:10:00 EDT, [facility]/pharmacy #[id number], Partial fill upon patient request [...] Replace Required Details, Route to Pharmacy Electronically, [facility]/pharmacy #[id number], Partial fill upon... Start Date: 12/10/22 Status: Ordered Ventolin HFA 108 mcg/inh inhalation aerosol with adapter 2 puffs, Inhalation, Every 6 hours, PRN NEEDED FOR WHEEZING SHORTNESS OF BREATH ^BULK, # 18 Gm, 2 Refills, Maintenance, 12/10/22 16:06:00 EDT, [facility]/pharmacy #[id number], 135, cm, 12/09/22 11:51:00 EDT, [...] Active Osteoarthritis Confirmed Active Osteoporosis Confirmed Active [id number] Rn Gastroenterology Kayce Byrne Confirmed Active Respiratory failure requiring intubation 18 Confirmed 2004 Active Tubular adenoma 19 Confirmed 11/2007 Active Urinary incontinence Confirmed Active Venous embolism 20 Confirmed Active 1PFTs normal in 2010 2recurrent 3bilat 73736's 5-Echo at [facility] on 06-21-14, 6Dr. Ingis 7 She has multiple chest discomfort sensations none of which are particularly anginal in nature. [place]as had multiple stress tests in the past all of which is been negative. 8Read Cardiology note form 8-24-16 9-reported by patient. In 2011 had dobutamine stress test, which showed no EKG findings suggestive of ischemia. 10-Minimental today: 09-Caqe-hokivb today: 12Lt shoulder 13-admission in 2017 for Left sided weakness and associated headache, ruled out from CVA, likely Complex Migraine 14CT scan of the brain done on 05/14/13- unremarkable 15March 2013-the temporal artery biopsy was negative 16Evaluated by Rheumatology ([facility] and [facility]). Impression is fibromyalgia and OA 17-refuses CPAP 18-2ary to asthma exacerbation. At [facility] 19Then again on . Had poor prep [...] Team Personnel Name: Gavi Arthur RN Position: [facility] AMB Nurse Member Role: Primary Care Nurse Name: Malgorzata Ugalde RN Position: [facility] RN Member Role: Primary Care Nurse Name: Tsering Casey RN Position: S RN Member Role: Primary Care Nurse Name: Bakari Albert MD Position: [facility] Physician - Primary Care Member Role: PCP Address: Address: [address] [place] [id number] Name: Aliza Lemon RN Position: [facility] RN Member Role: Primary Care Nurse Name: Tsering Johnson RN Position: [facility] RN Member Role: Primary Care Nurse Care Team Related Persons Name: JCARLOS DOYLE Address: home [address] [facility] [address] [place] [address] Name: JUAN M SILVA Name: GRACE MADRIGAL Address: [place] [address] Name: BERENICE DELA CRUZ TOURING PRODUCTION MANAGER
--- OUTSIDE RECORDS SUMMARY | 2023-01-15 16:50 | XMS_ITS | Continuity of Care Document ---
Author Name Unknown Organization [facility] Address [address] [place] [address]- Care Team Providers Care Sales Facilitator Name Role Phone Bety KNIGHT, Ameena Primary Care Physician [place] [facility] Date[place]s): 08/17/20 - 09/16/20 [facility] [address] [place], [place] [address] Allergies, Adverse Reactions, Alerts Substance Reaction Severity [...] 08/31/20 16:44:00 EDT, Route to Pharmacy Electronically, [facility]/pharmacy #[id number], 135, cm, 08/31/20 [...] 0 Refills, Maintenance, 08/31/20 16:48:00 EDT, Solution, [facility]/pharmacy #[id number], 135, cm, 08/31/20 16:06:00 EDT, Height Start Date: 08/31/20 Stop Date: 09/30/20 Status: Ordered lisinopril 20 mg oral tablet 1, tablet, By Mouth, Daily, # 28 tablet, Refills 3, Tot. Refills 3, Maintenance, 08/31/20 16:42:00 EDT, Route to Pharmacy Electronically, [facility]/pharmacy #[id number], 135, cm, 08/31/20 16:06:00 EDT, Height Start Date: 08/31/20 Status: Ordered Pen [place], 30 G x 8 mm BD Ultra [...] nfirmed) 14 Active Osteoarthritis(Confirmed) Active Osteoporosis(Confirmed) Active *[id number] Care Partn er Sandra Loredo(Confirmed) Active Non-compliant patient(Confirmed) Active Respiratory failure requirin g intubation(Confirmed) 2004 Active Tubular adenoma(Confirmed) 16 11/2007 Active Urinary incontinence(Confirmed) Active Venous embolism(Confirmed) 17 Active 1PFTs normal in 2010 2recurrent 3bilat 16[address]'s 5-Echo at [facility] on 06-21-14, 6Dr. Ingis 7Read Cardiology note form 12-20-15 8-reported by patient. In 2011 had dobutamine stress test, which showed no EKG findings suggestive of ischemia. 9Lt shoulder 10CT scan of the brain done on 05/14/13- unremarkable 11Junch 2013-the temporal artery biopsy was negative 12Evaluated by Rheumatology ([facility] and [facility]). Impression is fibromyalgia and OA 13-refuses CPAP 14reported by patient 15-2ary to asthma exacerbation. At [facility] 16Then again on . Had poor prep so it was recommended to repeat it in 1 year with 2 day of clears and 1 day of golytely. 2 medium sized adenomatous appearing polyps were removed [id number] Social History Social History Type Response Smoking Status Former smoker; Other : 2ppd x 5y; Stopped at age: 34; entered on: 09/11/17 Sex
--- OUTSIDE RECORDS SUMMARY | 2023-01-15 16:50 | XMS_ITS | Continuity of Care Document ---
Author Name Unknown Organization [facility] Address [address] [place] [address]- Care Team Providers Care Upper Cutter Out Name Role Phone Bety KNIGHT, Ameena Primary Care Physician Encounter [facility] Date(s): 01/20/20 - 02/19/20 [facility] [address] [place] [address]- [place] Allergies, Adverse Reactions, Alerts Substance Reaction [...] 12:26:00 EDT, Aerosol, Route to Pharmacy Electronically, [id number], [facility], 135, cm, 07/23/18... Start [...] 16:16:00 EDT, Route to Pharmacy Electronically, [facility], 135, cm, 07/23/18 11:47:00 EDT, Height, 84.3, kg, 07/23/18 11:47:00 EDT, Dry Weight Start Date: 01/20/20 Status: Ordered omeprazole 20 mg oral enteric coated capsule 1 capsule, By Mouth, 2 times a day, # 56 capsule, 0 Refills, Maintenance, 01/20/20 16:16:00 EDT, [facility], 135, cm, 07/23/18 11:47:00 EDT, Height, 84.3, kg, 07/23/18 11:47:00 EDT, DryWeight Start Date: 01/20/20 Status: Ordered Pen [place], 30 G x 8 mm BD Ultra [...] nfirmed) 14 Active Osteoarthritis(Confirmed) Active Osteoporosis(Confirmed) Active *[id number] Care Partn er Sandra Loredo(Confirmed) Active Non-compliant patient(Confirmed) Active Respiratory failure requirin g intubation(Confirmed) 2004 Active Tubular adenoma(Confirmed) 16 11/2007 Active Urinary incontinence(Confirmed) Active Venous embolism(Confirmed) 17 Active 1PFTs normal in 2010 2recurrent 3bilat 8[address]97's 5-Echo at [facility] on 06-21-14, 6Dr. Ingis 7Read Cardiology note form 12-20-15 8-reported by patient. In 2011 had dobutamine stress test, which showed no EKG findings suggestive of ischemia. 9Lt shoulder 10CT scan of the brain done on 05/14/13- unremarkable 2013-the temporal artery biopsy was negative 12Evaluated by Rheumatology ([facility] and [facility]). Impression is fibromyalgia and OA 13-refuses CPAP 14reported by patient 15-2ary to asthma exacerbation. At [facility] 16Then again on . Had poor prep so it was recommended to repeat it in 1 year with 2 day of clears and 1 day of golytely. 2 medium sized adenomatous appearing polyps were removed [id number] Social History Social History Type Response Smoking Status Former smoker; Other : 2ppd x 5y; Stopped at age: 34; entered on: 09/11/17 Sex
--- OUTSIDE RECORDS SUMMARY | 2023-01-15 16:50 | XMS_ITS | Continuity of Care Document ---
Author Name Unknown Organization [facility] Address [address] [place] [address]- Care Team Providers Care Hot Knife Foxing Cutter Name Role Phone Bety KNIGHT, Ameena Primary Care Physician Encounter [facility] Date(s): 12/11/22 - 01/10/23 [facility] [address]- [place] Allergies, Adverse Reactions, Alerts Substance Reaction Severity Status acetaminophen Active Motrin Active Nuts RASH Active penicillin ITCHING, RASH Active aspirin rash Active tetanus toxoid SWELLING Active Benadryl RASH, VOMITING Active Latex SWELLING Active Egg Allergy TONGUE SWELLS egg Unknown Active Losartan Potassium 1 spitting christophe blood Active 1spitting christophe blood Immunizations Given and Recorded Vaccine Date Status Refusal Reason pneumococcal 23-valent vaccine 09/19/16 Given pneumococcal 13-valent vaccine 1 02/22/16 Given influenza virus vaccine, inactivated 2 02/22/16 Gi cmaron Pneumococcal Poly (PPV23) (oldterm) 3 08/10/09 Giv [...] Refills, Maintenance, 12/10/22 16:06:00 EDT, Tablet, [id number], Partial fill upon patient request if the prescription is for a schedule II opioid drug., 135, cm, 12/09/22 11:51:00 EDT, Height,... Start Date: 12/10/22 Status: Ordered clopidogrel 75 mg oral tablet 1, tablet, By Mouth, Daily, Hx of CVA and ASA allergy, # 90 tablet, Refills 3, Tot. Refills 3, Maintenance, 12/10/22 16:55:00 EDT, Route to Pharmacy Electronically, [facility]/pharmacy #[id number], please note that diagnosis was changed and [...] 12/10/22 16:08:00 EDT, Route to Pharmacy Electronically, [facility]/pharmacy #[id number], 135, cm, 12/09/22 11:51:00 EDT, Height, 55.9, kg, 06/04/22 15:07:00 EST, Dry Weight Start Date: 12/10/22 Stop Date: 12/05/23 Status: Ordered Lantus Solostar Pen 100 units/mL subcutaneous solution = 20 units, Subcutaneous Injection, Daily, daily in the morning, # 15 mL, 2 Refills, Maintenance, 12/10/22 16:12:00 EDT, Solution, [facility]/pharmacy #[id number], 135, cm, 12/09/22 11:51:00 EDT, Height, 55.9, kg, 06/04/22 15:07:00 EST, Dry Weight Start Date: 12/10/22 Stop Date: 09/06/23 Status: Ordered lisinopril 20 mg oral tablet 1, tablet, By Mouth, Daily, # 90 tablet, Refills 3, Tot. Refills 3, Maintenance, 12/10/22 16:06:00 EDT, Route to Pharmacy Electronically, [facility]/pharmacy #[id number], 135, cm, 12/09/22 11:51:00 EDT, Height, 55.9, kg, 06/04/22 15:07:00 EST, Dry Weight Start Date: 12/10/22 Stop Date: 12/05/23 Status: Ordered Pen [place], 30 G x 8 mm BD Ultra [...] tablet, 3 Refills, Maintenance, 12/10/22 16:10:00 EDT, [facility]/pharmacy #[id number], Partial fill upon patient request [...] Replace Required Details, Route to Pharmacy Electronically, [facility]/pharmacy #[id number], Partial fill upon... 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 10-Minimental today: 90-Tgoy-ruzfjk today: 12Lt shoulder 13-admission in 2017 for Left sided weakness and associated headache, ruled out from CVA, likely Complex Migraine 14CT scan of the brain done on 05/14/13- unremarkable 15March 2013-the temporal artery biopsy was negative 16Evaluated by Rheumatology ([facility] and [facility]). Impression is fibromyalgia and OA 17-refuses CPAP 18-2ary to asthma exacerbation. At [facility] 19Then again on . Had poor prep [...] Team Personnel Name: Gavi Arthur RN Position: [facility] AMB Nurse Member Role: Primary Care Nurse Name: Malgorzata Ugalde RN Position: [facility] SN RN Member Role: Primary Care Nurse Name: Tsering Casey RN Position: S RN Member Role: Primary Care Nurse Name: Ameena Albert MD Position: S Physician - Primary Care Member Role: PCP Address: Address: [address] [place] [id number] Name: Aliza Lemon RN Position: S RN Member Role: Primary Care Nurse Name: Tsering Johnson RN Position: S RN Member Role: Primary Care Nurse Care Team Related Persons Name: DOYLEJCARLOS Kramer Address: home [address] [facility] [address] [place] [address] Name: JUAN M SILVA Name: GRACE MADRIGAL Address: [place] [address] Name: BERENICE DELA CRUZ FACILITY SPECIALIST
--- OUTSIDE RECORDS SUMMARY | 2023-01-15 16:51 | XMS_ITS | Continuity of Care Document ---
Author Name Unknown Organization [facility] Address [address] [place] [address]- Care Team Providers Care Receiving Barn Custodian Name Role Phone Bety KNIGHT, Ameena Primary Care Physician Encounter [facility] Date(s): 03/16/20 - 04/15/20 [facility] [address] [address]- Allergies, Adverse Reactions, Alerts Substance Reaction Severity [...] 12:26:00 EDT, Aerosol, Route to Pharmacy Electronically, [id number], [facility], 135, cm, 07/23/18... Start [...] DryWeight Start Date: 01/20/20 Status: Ordered Pen [place], 30 G x 8 mm BD Ultra [...] nfirmed) 14 Active Osteoarthritis(Confirmed) Active Osteoporosis(Confirmed) Active *[id number] Care Partn er Sandra Loredo(Confirmed) Active Non-compliant patient(Confirmed) Active Respiratory failure requirin g intubation(Confirmed) 2004 Active Tubular adenoma(Confirmed) 16 11/2007 Active Urinary incontinence(Confirmed) Active Venous embolism(Confirmed) 17 Active 1PFTs normal in 2010 2recurrent 3bilat 74770's 5-Echo at [facility] on 06-21-14, 6Dr. Ingis 7Read Cardiology note form 12-20-15 8-reported by patient. In 2011 had dobutamine stress test, which showed no EKG findings suggestive of ischemia. 9Lt shoulder 10CT scan of the brain done on 05/14/13- unremarkable 2013-the temporal artery biopsy was negative 12Evaluated by Rheumatology ([facility] and [facility]). Impression is fibromyalgia and OA 13-refuses CPAP 14reported by patient 15-2ary to asthma exacerbation. At [facility] 16Then again on . Had poor prep so it was recommended to repeat it in 1 year with 2 day of clears and 1 day of golytely. 2 medium sized adenomatous appearing polyps were removed [id number] Social History Social History Type Response Smoking Status Former smoker; Other : 2ppd x 5y; Stopped at age: 34; entered on: 09/11/17 Sex
--- OUTSIDE RECORDS SUMMARY | 2023-01-15 16:51 | XMS_ITS | Continuity of Care Document ---
Author Name Unknown Organization [facility] Address Unknown Care Team Providers Care Loader Machine Name Role Phone Bety KNIGHT, Ameena Primary Care Physician [place] [facility] [place]21 - 09/29/21 [facility] Allergies, Adverse Reactions, Alerts Substance [...] Refills, Maintenance, 07/05/21 12:45:00 EST, Tablet, [id number], Partial fill upon patient request if the prescription is for a schedule II opioid drug., 135, cm, 09/21/20 11:34:00 EDT, Height Start Date: 07/05/21 Status: Ordered clopidogrel 75 mg oral tablet 1, tablet, By Mouth, Daily, ASA allergy, # 30 tablet, Refills 11, Tot. Refills 11, Maintenance, 07/05/21 12:44:00 EST, Route to Pharmacy Electronically, [id number], 135, cm, 09/21/20 11:34:00EDT, Height [...] 09/29/21 11:07:00 EDT, Route to Pharmacy Electronically, [id number], Partial fill upon patient request if the prescription is... Start Date: 09/29/21 Stop Date: 10/29/21 Status: Ordered Lantus Solostar Pen 100 units/mL subcutaneous solution = 20 units, Subcutaneous Injection, Daily, daily in the morning, # 10 mL, 11 Refills, Maintenance, 07/05/21 12:45:00 EST, [id number] 135, cm, 09/21/20 11:34:00 EDT, Height Start Date: 07/05/21 Stop Date: 06/30/22 Status: Ordered lisinopril 20 mg oral tablet 1, tablet, By Mouth, Daily, # 28 tablet, Refills 11, Tot. Refills 11, Maintenance, 07/05/21 12:45:00 EST, [id number], 135, cm, 09/21/20 11:34:00 EDT, Height Start Date: 07/05/21 Status: Ordered Pen Gallagher, 30 G x 8 mm BD Ultra [...] 0 Refills, Maintenance, 09/20/21 14:34:00 EDT, Tablet, [id number], Partial fill upon patient request if [...] nfirmed) 15 Active Osteoarthritis(Confirmed) Active Osteoporosis(Confirmed) Active *[id number] Care Partn er Opal Umana(Confirmed) Active Non-compliant patient(Confirmed) Active Respiratory failure requirin g intubation(Confirmed) 2004 Active Tubular adenoma(Confirmed) 17 11/2007 Active Urinary incontinence(Confirmed) Active Venous embolism(Confirmed) 18 Active 1PFTs normal in 2010 2recurrent 3bilat 07774's 5-Echo at [facility] on 06-21-14, 6Dr. Ingis 7Read Cardiology note form 12-20-15 8-reported by patient. In 2011 had dobutamine stress test, which showed no EKG findings suggestive of ischemia. 8-Dbup-yhkwit today: 10Lt shoulder 11CT scan of the brain done on 05/14/13- unremarkable 12Junch 2013-the temporal artery biopsy was negative 13Evaluated by Rheumatology ([facility] and [facility]). Impression is fibromyalgia and OA 14-refuses CPAP 15reported by patient 16-2ary to asthma exacerbation. At [facility] 17Then again on . Had poor prep so it was recommended to repeat it in 1 year with 2 day of clears and 1 day of golytely. 2 medium sized adenomatous appearing polyps were removed [id number] Social History Social History Type Response Smoking Status Former smoker; Other : 2ppd x 5y; Stopped at age: 34; entered on: 09/11/17 Sex
--- OUTSIDE RECORDS SUMMARY | 2023-01-15 16:51 | XMS_ITS | Continuity of Care Document ---
Author Name Unknown Organization [facility] Address [address] [place] [address]- Care Team Providers Care Supervisor Painting [employer] Name Role Phone Bety KNIGHT, Ameena Primary Care Physician ( [phone] Encounter [facility] [place] Date(s): 08/20/22 - 09/19/22 [facility] [address]- [place] Allergies, Adverse Reactions, Alerts Substance Reaction Severity Status acetaminophen Active tetanus toxoid SWELLING Active Motrin Active penicillin ITCHING, RASH Active aspirin rash Active Benadryl RASH, VOMITING [...] 11 Refills, Maintenance, 10/11/21 10:03:00 EDT, [facility], Partial fill upon patient request if the prescription is for a schedule II opioid drug., 1 tablet By M... Start Date: 10/11/21 Status: Ordered clopidogrel 75 mg oral tablet 1, tablet, By Mouth, Daily, R1., # 30 tablet, Refills 11, Maintenance, 09/12/22 14:29:00 EDT, [facility] Electron[facility], [facility], 135, cm, 06/04/22 14:59:00 EST, Height, [...] 07/19/22 17:31:00 EDT, Route to Pharmacy Electronically, [facility], 135, cm, 06/04/22 14:59:00 EST, Height, 55.9, kg, 06/04/22 15:07:00 EST, Dry Weight Start Date: 07/19/22 Status: Ordered Lantus Solostar Pen 100 units/mL subcutaneous solution = 20 units, Subcutaneous Injection, Daily, daily in the morning Patient will need [facility] pill dispenser, # 10 mL, 11 Refills, Maintenance, 10/02/21 13:47:00 EDT, Solution, [facility], 135,cm, 09/29/21 10:30:00 EDT, Height Start Date: 10/02/21 Stop Date: 09/27/22 Status: Ordered lisinopril 20 mg oral tablet 1, tablet, By Mouth, Daily, Patient will need [employer] pill dispenser, # 28 tablet, Refills 11, Tot. 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 Ingis 7Read Cardiology note form 12-20-15 8-reported by patient. In 2011 had dobutamine stress test, which showed no EKG findings suggestive of ischemia. 9-Minimental today: 31-Ooyj-enqmsy today: 11Lt shoulder 12-admission in 2016 for Left sided weakness and associated headache, ruled out from CVA, likely Complex Migraine 13CT scan of the brain done on 05/14/13- unremarkable 14March 2013-the temporal artery biopsy was negative 15Evaluated by Rheumatology ([facility] and [facility]). Impression is fibromyalgia and OA 16-refuses CPAP 17reported by patient 18-2ary to asthma exacerbation. At [facility] [...] Team Personnel Name: Gavi Arthur RN Position: [facility] PCO RN Member Role: Primary Care Nurse Name: Malgorzata Ugalde RN Position: [facility] SN RN Member Role: Primary Care Nurse Name: Tsering Casey RN Position: [facility] RN Member Role: Primary Care Nurse Name: Ameena Albert MD Position: [facility] Physician - Primary Care Member Role: PCP Address: Address: [address] [place] [id number] Name: Aliza Lemon RN Position: [facility] RN Member Role: Primary Care Nurse Name: Tsering Johnson RN Position: [facility] RN Member Role: Primary Care Nurse Care Team Related Persons Name: DOYLEJCARLOS Kramer Address: home [address] [facility] [address] [place] [address] Name: GRACE MADRIGAL Address: [place] [address] Name: BERENICE DELA CRUZ COUNSELING CASE MANAGER
--- OUTSIDE RECORDS SUMMARY | 2023-01-15 16:51 | XMS_ITS | Continuity of Care Document ---
Author Name Unknown Organization [facility] Address Unknown Care Team Providers Care 3D Designer Name Role Phone Bety KNIGHT, Ameena Primary Care Physician ( [phone] [place] [facility] [place](s): 12/18/20 - 01/17/21 [facility] Allergies, Adverse Reactions, Alerts Substance Reaction [...] Height Start Date: 11/27/20 Status: Ordered Pen [place], 30 G x 8 mm BD Ultra [...] nfirmed) 15 Active Osteoarthritis(Confirmed) Active Osteoporosis(Confirmed) Active *[id number] Care Partn er Sandra Robertows(Confirmed) Active Non-compliant patient(Confirmed) Active Respiratory failure requirin g intubation(Confirmed) 2004 Active Tubular adenoma(Confirmed) 17 11/2007 Active Urinary incontinence(Confirmed) Active Venous embolism(Confirmed) 18 Active 1PFTs normal in 2010 2recurrent 3bilat 49930's 5-Echo at [facility] on 06-21-14, 6Dr. Ingis 7Read Cardiology note form 12-20-15 8-reported by patient. In 2011 had dobutamine stress test, which showed no EKG findings suggestive of ischemia. 6-Weni-nohwxw today: 10Lt shoulder 11CT scan of the brain done on 05/14/13- unremarkable 12March 2013-the temporal artery biopsy was negative 13Evaluated by Rheumatology ([facility] and [facility]). Impression is fibromyalgia and OA 14-refuses CPAP 15reported by patient 16-2ary to asthma exacerbation. At [facility] 17Then again on . Had poor prep so it was recommended to repeat it in 1 year with 2 day of clears and 1 day of golytely. 2 medium sized adenomatous appearing polyps were removed [id number] Social History Social History Type Response Smoking Status Former smoker; Other : 2ppd x 5y; Stopped at age: 34; entered on: 09/11/17 Sex
--- OUTSIDE RECORDS SUMMARY | 2023-01-15 16:51 | XMS_ITS | Continuity of Care Document ---
Author Name Unknown Organization [facility] Address [address] [place] [address]- Care Team Providers Care Cardiac Care Unit Nurse Name Role Phone Bety KNIGHT, Ameena Primary Care Physician Encounter [facility] [place] Date(s): 08/06/22 - 09/05/22 [facility]/[address] [address]- [place] Allergies, Adverse Reactions, Alerts Substance Reaction [...] prescription is for a schedule II opioid dr... Start Date: 08/19/22 Status: Ordered Calcium 600 +D oral tablet 1 tablet, By Mouth, 2 times a day, calcium 600 and Vit D 400 units, # 90 tablet, 11 Refills, Maintenance, 10/11/21 10:03:00 EDT, [facility], Partial fill upon patient request if the prescription is for a schedule II opioid drug., 1 tablet By M... Start Date: 10/11/21 Status: Ordered clopidogrel 75 mg oral tablet 1, tablet, By Mouth, Daily, ASA allergy Patient will need [facility] pill dispenser, # 30 tablet, Refills 11, Tot. Refills 11, Maintenance, 10/02/21 13:46:00 EDT, Route to Pharmacy Electronically, [facility], 135, cm, 09/29/21 10:30:00 EDT, [facility]. Start Date: 10/02/21 Status: Ordered Freestyle Lite [...] 07/19/22 17:31:00 EDT, [facility], [facility], cm, 06/04/22 14:59:00 EST, Height, 55.9, kg, 06/04/22 15:07:00 EST, Dry Weight Start Date: 07/19/22 Status: Ordered Lantus Solostar Pen 100 units/mL subcutaneous solution = 20 units, Subcutaneous Injection, Daily, daily in the morning Patient will need [facility] pill dispenser, # 10 mL, 11 Refills, Maintenance, 10/02/21 13:47:00 EDT, [facility], 135,cm, 09/29/21 10:30:00 EDT, Height Start Date: 10/02/21 Stop Date: 09/27/22 Status: Ordered lisinopril 20 mg oral tablet 1, tablet, By Mouth, Daily, Patient will need [facility] pill dispenser, # 28 tablet, Refills 11, Tot. Refills 11, Maintenance, 10/02/21 13:48:00 EDT, [facility], 135, cm, 09/29/21 10:30:00 EDT, Height Start Date: 10/02/21 Status: Ordered Pen [place], 30 G x 8 mm BD Ultra [...] 0 Refills, Maintenance, 08/16/22 11:08:00 EDT, Tablet, [facility], Partial fill upon patient request if [...] Gm, 2 Refills, Maintenance, 07/19/22 13:21:00 EDT, [facility], 135, cm, 06/04/22 14:59:00 EST, Height, [...] Active Osteoarthritis Confirmed Active Osteoporosis Confirmed Active [id number] 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 Ingis 7Read Cardiology note form 12-20-15 8-reported by patient. In 2011 had dobutamine stress test, which showed no EKG findings suggestive of ischemia. 9-Minimental today: 71-Rijv-pusbdu today: 11Lt shoulder 12-admission in 2017 for Left sided weakness and associated headache, ruled out from CVA, likely Complex Migraine 13CT scan of the brain done on 05/14/13- unremarkable 14March 2013-the temporal artery biopsy was negative 15Evaluated by Rheumatology ([facility]). Impression is [...] Team Personnel Name: Gavi Arthur RN Position: [facility] PCO RN Member Role: Primary Care Nurse Name: Malgorzata Ugalde RN Position: [facility] SN RN Member Role: Primary Care Nurse Name: Tsering Casey RN Position: S RN Member Role: Primary Care Nurse Name: Ameena Albert MD Position: [facility] Primary Care Physician Member Role: PCP Address: Address: [address] [place] [address]- Name: Aliza Lemon RN Position: S RN Member Role: Primary Care Nurse Name: Tsering Johnson RN Position: S RN Member Role: Primary Care Nurse Care Team Related Persons Name: JCARLOS DOYLE Address: home [address] [facility] [address] [place] [address] Name: GRACE MADRIGAL Address: [place] [address] Name: BERENICE DELA CRUZ
--- OUTSIDE RECORDS SUMMARY | 2023-01-15 16:51 | XMS_ITS | Continuity of Care Document ---
Author Name Unknown Organization [facility] Address Unknown Care Team Providers Care Sports Activities Foul Judge Name Role Phone Bety KNIGHT, Ameena Primary Care Physician Encounter [facility] [place] Date(s): 11/05/21 - 12/05/21 [facility] Allergies, Adverse Reactions, Alerts Substance Reaction [...] 11/14/2214:05:00 EDT, Aerosol, Route to Pharmacy Electronically, NCPDP_[id number], [facility], 135,cm, 10/11/21 9:20:00 EDT, Height Start Date: 11/14/21 Status: Ordered atorvastatin 20 mg oral tablet 1 tablet = 20 mg, By Mouth, Daily, Patient will need [employer] pill dispenser, # 30 tablet, 11 Refills, Maintenance, 10/02/21 13:46:00 EDT, Tablet, [facility], Partial fill upon patient request if the prescription is for a schedule II opioid d... Start Date: 10/02/21 Status: Ordered Calcium 600 +D oral tablet 1 tablet, By Mouth, 2 times a day, calcium 600 and Vit D 400 units, # 90 tablet, 11 Refills, Maintenance, 10/11/21 10:03:00 EDT, [facility], Partial fill upon patient request if the prescription is for a schedule II opioid drug., 1 tablet By M... Start Date: 10/11/21 Status: Ordered clopidogrel 75 mg oral tablet 1, tablet, By Mouth, Daily, ASA allergy Patient will need [employer] pill dispenser, # 30 tablet, Refills 11, Tot. Refills 11, Maintenance, 10/02/21 13:46:00 EDT, [facility], [facility], 135, cm, 09/29/21 10:30:00 EDT, He... [...] 11/30/21 13:29:00 EDT, Route to Pharmacy Electronically, [facility] Start Date: 11/30/21 Stop Date: 12/30/21 Status: Ordered Lantus Solostar Pen 100 units/mL subcutaneous solution = 20 units, Subcutaneous Injection, Daily, daily in the morning Patient will need [facility] pill dispenser, # 10 mL, 11 Refills, Maintenance, 10/02/21 13:47:00 EDT, Solution, [facility], 135,cm, 09/29/21 10:30:00 EDT, Height Start Date: 10/02/21 Stop Date: 09/27/22 Status: Ordered lisinopril 20 mg oral tablet 1, tablet, By Mouth, Daily, Patient will need Med[employer] Applebaum MD pill dispenser, # 28 tablet, Refills 11, Tot. Refills 11, Maintenance, 10/02/21 13:48:00 EDT, Route to Pharmacy Electronically, [facility], 135, cm, 09/29/21 10:30:00 EDT, Height Start Date: 10/02/21 Status: Ordered Pen [place], 30 G x 8 mm BD Ultra [...] nfirmed) 17 Active Osteoarthritis(Confirmed) Active Osteoporosis(Confirmed) Active *[id number] Care Partn er Opaldora Lópeze(Confirmed) Active Non-compliant patient(Confirmed) Active Respiratory failure requirin g intubation(Confirmed) 2004 Active Tubular adenoma(Confirmed) 19 11/2007 Active Urinary incontinence(Confirmed) Active Venous embolism(Confirmed) 20 Active 1PFTs normal in 2010 2recurrent 3bilat 67625's 5-Echo at [facility] on 06-21-14, 6Dr. Ingis 7Read Cardiology note form 12-20-15 8-reported by patient. In 2011 had dobutamine stress test, which showed no EKG findings suggestive of ischemia. 9-Minimental today: 45-Dnmt-swewoz today: 11Lt shoulder 12-admission in 2016 for Left sided weakness and associated headache, ruled out from CVA, likely Complex Migraine 13CT scan of the brain done on 05/14/13- unremarkable 14March 2013-the temporal artery biopsy was negative 15Evaluated by Rheumatology ([facility] and [facility]). Impression is fibromyalgia and OA 16-refuses CPAP 17reported by patient 18-2ary to asthma exacerbation. At [facility] 19Then again on . Had poor [...]
--- OUTSIDE RECORDS SUMMARY | 2023-01-15 16:51 | XMS_ITS | Continuity of Care Document ---
Author Name Unknown Organization [facility] Address [address] [place] [id number]- Care Team Providers Care [employer] Emergency Services Dispatcher Name Role Phone Bety KNIGHT, Ameena Primary Care Physician Encounter [facility] [place] Date(s): 09/05/22 - 10/05/22 [facility]/[address] [address]- [place] Allergies, Adverse Reactions, Alerts Substance Reaction [...] Refills, Maintenance, 10/11/21 10:03:00 EDT, [facility], Partial fill upon patient request if the prescription is for a schedule II opioid drug., 1 tablet By M... Start Date: 10/11/21 Status: Ordered clopidogrel 75 mg oral tablet 1, tablet, By Mouth, Daily, R1., # 30 tablet, Refills 11, Maintenance, 09/12/22 14:29:00 EDT, [facility], [facility], 135, cm, 06/04/22 14:59:00 EST, Height, [...] 07/19/22 17:31:00 EDT, Route to Pharmacy Electronically, [facility], 135, cm, 06/04/22 14:59:00 EST, Height, 55.9, kg, 06/04/22 15:07:00 EST, Dry Weight Start Date: 07/19/22 Status: Ordered Lantus Solostar Pen 100 units/mL subcutaneous solution = 20 units, Subcutaneous Injection, Daily, daily in the morning Patient will need [facility] pill dispenser, # 10 mL, 11 Refills, Maintenance, 10/02/21 13:47:00 EDT, Solution, [facility], 135,cm, 09/29/21 10:30:00 EDT, Height Start Date: 10/02/21 Stop Date: 09/27/22 Status: Ordered lisinopril 20 mg oral tablet 1, tablet, By Mouth, Daily, Patient will need [employer] pill dispenser, # 28 tablet, Refills 11, Tot. 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 Ingis 7Read Cardiology note form 12-20-15 8-reported by patient. In 2011 had dobutamine stress test, which showed no EKG findings suggestive of ischemia. 9-Minimental today: 00-Pemm-uumyjs today: 11Lt shoulder 12-admission in 2016 for Left sided weakness and associated headache, ruled out from CVA, likely Complex Migraine 13CT scan of the brain done on 05/14/13- unremarkable 14March 2013-the temporal artery biopsy was negative 15[facility] Impression is fibromyalgia and OA 16-refuses CPAP 17reported by patient 18-2ary to asthma exacerbation. At [facility] 19Then again on . Had poor [...] Team Personnel Name: Gavi Arthur RN Position: [facility] Nurse Member Role: Primary Care Nurse Name: Malgorzata Ugalde RN Position: [facility] RN Member Role: Primary Care Nurse Name: Tsering Casey RN Position: [facility] RN Member Role: Primary Care Nurse Name: Ameena Albert MD Position: [facility] Physician - Primary Care Member Role: PCP Address: Address: [address] [place] [address]- [place] Name: Aliza Lemon RN Position: [facility] RN Member Role: Primary Care Nurse Name: Tsering Johnson RN Position: S RN Member Role: Primary Care Nurse Care Team Related Persons Name: DOYLEJCARLOS Kramer Address: home [address] [facility] [address] [place] [address] Name: GRACE MADRIGAL Address: [place] [address] Name: BERENICE DELA CRUZ JEWELRY JOBBER
--- OUTSIDE RECORDS SUMMARY | 2023-01-15 16:51 | XMS_ITS | Continuity of Care Document ---
Author Name Unknown Organization [facility] Address Unknown Care Team Providers Care Superintendent Logging Name Role Phone Bety KNIGHT, Ameena Primary Care Physician Encounter [facility] [place] Date(s): 09/28/21 - 10/28/21 [facility] Allergies, Adverse Reactions, Alerts Substance Reaction Severity [...] mg, By Mouth, Daily, Patient will need [employer] pill dispenser, # 30 tablet, 11 Refills, Maintenance, 10/02/21 13:46:00 EDT, Tablet, [facility], Partial fill upon patient request if the prescription is for a schedule II opioid d... Start Date: 10/02/21 Status: Ordered Calcium 600 +D oral tablet 1 tablet, By Mouth, 2 times a day, calcium 600 and Vit D 400 units, # 90 tablet, 11 Refills, Maintenance, 10/11/21 10:03:00 EDT, [facility], Partial fill upon patient request if the prescription is for a schedule II opioid drug., 1 tablet By M... Start Date: 10/11/21 Status: Ordered clopidogrel 75 mg oral tablet 1, tablet, By Mouth, Daily, ASA allergy Patient will need [facility] pill dispenser, # 30 tablet, Refills 11, Tot. Refills 11, Maintenance, 10/02/21 13:46:00 EDT, Route to Pharmacy Electronically, [facility], 135, cm, 09/29/21 10:30:00 EDT, He... [...] 10/09/21 20:56:00 EDT, Route to Pharmacy Electronically, [facility], Partial fill upon patient request if the pr... Start Date: 10/09/21 Stop Date: 11/08/21 Status: Ordered Lantus Solostar Pen 100 units/mL subcutaneous solution = 20 units, Subcutaneous Injection, Daily, daily in the morning Patient will need [facility] pill dispenser, # 10 mL, 11 Refills, Maintenance, 10/02/21 13:47:00 EDT, Solution, [facility], 135,cm, 09/29/21 10:30:00 EDT, Height Start Date: 10/02/21 Stop Date: 09/27/22 Status: Ordered lisinopril 20 mg oral tablet 1, tablet, By Mouth, Daily, Patient will need [facility] pill dispenser, # 28 tablet, Refills 11, Tot. Refills 11, Maintenance, 10/02/21 13:48:00 EDT, Route to Pharmacy Electronically, [facility], 135, cm, 09/29/21 10:30:00 EDT, Height Start Date: 10/02/21 Status: Ordered Pen [place], 30 G x 8 mm BD Ultra [...] nfirmed) 17 Active Osteoarthritis(Confirmed) Active Osteoporosis(Confirmed) Active *[id number] Care Partn er Opal Umana(Confirmed) Active Non-compliant patient(Confirmed) Active Respiratory failure requirin g intubation(Confirmed) 2004 Active Tubular adenoma(Confirmed) 19 11/2007 Active Urinary incontinence(Confirmed) Active Venous embolism(Confirmed) 20 Active 1PFTs normal in 2010 2recurrent 3bilat 28233's 5-Echo at [facility] on 06-21-14, 6Dr. Ingis 7Read Cardiology note form 24-16 8-reported by patient. In 2011 had dobutamine stress test, which showed no EKG findings suggestive of ischemia. 9-Minimental today: 53-Vjmd-kmjbwv today: 11Lt shoulder 12-admission in 2017 for Left sided weakness and associated headache, ruled out from CVA, likely Complex Migraine 13CT scan of the brain done on 05/14/13- unremarkable 14March 2013-the temporal artery biopsy was negative 15Evaluated by Rheumatology ([facility] and [facility]). Impression is fibromyalgia and OA 16-refuses CPAP 17reported by patient 18-2ary to asthma exacerbation. At [facility] 19Then again on . Had poor [...]
--- OUTSIDE RECORDS SUMMARY | 2023-01-15 16:51 | XMS_ITS | Continuity of Care Document ---
Author Name Unknown Organization [facility] Address Unknown Care Team Providers Care Inspector Circuitry Negative Name Role Phone Bety KNIGHT, Ameena Primary Care Physician Encounter [facility] Date(s): 11/27/20 - 12/27/20 [facility] Allergies, Adverse [...] Height Start Date: 11/27/20 Status: Ordered Pen [place], 30 G x 8 mm BD Ultra [...] nfirmed) 15 Active Osteoarthritis(Confirmed) Active Osteoporosis(Confirmed) Active *[id number] Care Partn er Sandra Loredo(Confirmed) Active Non-compliant patient(Confirmed) Active Respiratory failure requirin g intubation(Confirmed) 2004 Active Tubular adenoma(Confirmed) 17 11/2007 Active Urinary incontinence(Confirmed) Active Venous embolism(Confirmed) 18 Active 1PFTs normal in 2010 2recurrent 3bilat 14145's 5-Echo at [facility] on 06-21-14, 6Dr. Ingis 7Read Cardiology note form 12-20-15 8-reported by patient. In 2011 had dobutamine stress test, which showed no EKG findings suggestive of ischemia. 5-Owqu-esqnbj today: 10Lt shoulder 11CT scan of the brain done on 05/14/13- unremarkable 12March 2013-the temporal artery biopsy was negative 13Evaluated by Rheumatology ([facility] and [facility]). Impression is fibromyalgia and OA 14-refuses CPAP 15reported by patient 16-2ary to asthma exacerbation. At [facility] 17Then again on . Had poor prep so it was recommended to repeat it in 1 year with 2 day of clears and 1 day of golytely. 2 medium sized adenomatous appearing polyps were removed [id number] Social History Social History Type Response Smoking Status Former smoker; Other : 2ppd x 5y; Stopped at age: 34; entered on: 09/11/17 Sex
--- OUTSIDE RECORDS SUMMARY | 2023-01-15 16:51 | XMS_ITS | Continuity of Care Document ---
Author Name Unknown Organization [facility] Address [address] [place] [address]- Care Team Providers Care Maintenance Parts Technician Name Role Phone Bety KNIGHT, Ameena Primary Care Physician Encounter [facility] [place] Date(s): 06/10/19 - 07/10/19 [facility] [address] [place] [address]- [facility] Attending Physician: Ameena Albert MD Admitting Physician: [...] each, Refills 11, Tot. Refills 11, Maintenance, 08/13/17 13:38:52 EDT, Aerosol, Route to Pharmacy Electronically, [id number], [facility], Compound Start Date: 08/13/17 Status: Ordered ammonium lactate 12% topical cream [...] Status: Ordered clopidogrel 75 mg oral tablet 75 mg, 1, tablet, By Mouth, Daily, aspirin allergy, # 30 tablet, Refills 6, Tot. Refills 6, Maintenance, 12/09/18 13:46:40 EDT, Route to Pharmacy Electronically, [id number],[facility] Start Date: 12/09/18 Stop Date: 07/07/19 Status: Ordered Compression Stockings See Instructions, # [...] Status: Ordered hydrochlorothiazide 25 mg oral tablet See Instructions, # 28 tablet, Refills 4 Tot. Refills 4, TAKE 1 TABLET BY MOUTH DAILY, [facility] Start Date: 01/21/19 Status: Ordered Lantus Solostar Pen 100 units/mL subcutaneous solution = 60 units, Subcutaneous Injection, Daily, daily in the morning, # 10 mL, 6 Refills, Maintenance, 06/10/19 16:09:00 EST, Solution, [facility], 135, cm, 07/23/18 11:47:00 EDT, Height, 84.3, kg, 07/23/18 11:47:00 EDT, Dry Weight Start Date: 06/10/19 Stop Date: 01/06/20 Status: Ordered lisinopril 20 mg oral tablet See Instructions, # 28 tablet, Refills 4 Tot. Refills 4, TAKE 1 TABLET BY MOUTH DAILY, [facility] Start Date: 01/21/19 Status: Ordered montelukast 10 mg oral tablet 10 mg, 1, tablet, By Mouth, Daily in PM, # 30 tablet, Refills 6, Tot. Refills 6, Maintenance, 12/09/18 13:46:42 EDT, Route to Pharmacy Electronically, [id number], [facility] Start Date: 12/09/18 Stop Date: 07/07/19 Status: Ordered omeprazole 20 mg oral enteric coated capsule See Instructions, # 56 capsule, Refills 4 Tot. Refills 4, TAKE (1) CAPSULE BY MOUTH TWICE DAILY., [facility] Start Date: 01/21/19 Status: Ordered Pen [place], 30 G x 8 mm BD Ultra Fine II See Instructions, # 120 units, Refills 11, Tot. Refills 11, Maintenance, to use with lantus daily and with lispro sliding scale fromtid with meals, E11.9, 12/05/17 8:46:50 EDT, Compound Start Date: 12/05/17 Status: Ordered Trulicity Pen 1.5 mg/0.5 mL subcutaneous solution See Instructions, # 2 mL, Refills 6 Tot. Refills 6, INJECT 0.5ML SUBCUTANEOUSLY EVERY WEEKLY. ROTATE INJECTION SITES, [facility] Start Date: 02/23/19 Status: Ordered Vitamin D3 2000 intl units oral tablet 1 tablet = 2,000 International_Units, By Mouth, Daily, # 30 tablet, 5 Refills, Maintenance, 06/10/19 14:41:00 EST, [facility], 135, cm, 07/23/18 11:47:00 EDT, Height, 84.3, kg, 07/23/18 11:47:00 EDT, Dry Weight Start Date: 06/10/19 Stop Date: 12/07/19 Status: Ordered Wixela Inhub 500 mcg-50 mcg inhalation powder See Instructions, # 60 Unknown, Refills 6 Tot. Refills 6, TAKE 1 PUFF BY MOUTH 2 TIMES A DAY, [facility] Start Date: 02/23/19 Status: Ordered Problem List Condition Effective Dates [...] nfirmed) 14 Active Osteoarthritis(Confirmed) Active Osteoporosis(Confirmed) Active *[id number]-[facility] Partn tiffani Celia Sánchez(Confirmed) Active Non-compliant patient(Confirmed) Active Respiratory failure requirin g intubation(Confirmed) 2004 Active Tubular adenoma(Confirmed) 16 11/2007 Active Urinary incontinence(Confirmed) Active Venous embolism(Confirmed) 17 Active 1PFTs normal in 2010 2recurrent 3bilat 10685's 5-Echo at [facility] on 06-21-14, 6Dr. Ingis 7Read Cardiology note form 12-20-15 8-reported by patient. In 2011 had dobutamine stress test, which showed no EKG findings suggestive of ischemia. 9Lt shoulder 10CT scan of the brain done on 05/14/13- unremarkable 11Junch 2013-the temporal artery biopsy was negative 12Evaluated by Rheumatology ([facility] and [address]). Impression is fibromyalgia and OA 13-refuses CPAP 14reported by patient 15-2ary to asthma exacerbation. At [facility] 16Then again on . Had poor prep so it was recommended to repeat it in 1 year with 2 day of clears and 1 day of golytely. 2 medium sized adenomatous appearing polyps were removed [id number] Social History Social History Type Response Smoking Status Former smoker; Other : 2ppd x 5y; Stopped at age: 34; entered on: 09/11/17 Sex
--- OUTSIDE RECORDS SUMMARY | 2023-01-15 16:51 | XMS_ITS | Continuity of Care Document ---
Author Name Unknown Organization [facility] Address [address] [place] [address]- Care Team Providers Care Equipment Inspector Name Role Phone Bety KNIGHT, Ameena Primary Care Physician Encounter [facility] Date(s): 02/01/20 - 03/02/20 [facility] [address] [address]- Allergies, Adverse Reactions, Alerts Substance Reaction Severity [...] 12:26:00 EDT, Aerosol, Route to Pharmacy Electronically, [id number], [facility], 135, cm, 07/23/18... Start [...] DryWeight Start Date: 01/20/20 Status: Ordered Pen [place], 30 G x 8 mm BD Ultra [...] nfirmed) 14 Active Osteoarthritis(Confirmed) Active Osteoporosis(Confirmed) Active *[id number] Care Partn er Sandra Loredo(Confirmed) Active Non-compliant patient(Confirmed) Active Respiratory failure requirin g intubation(Confirmed) 2004 Active Tubular adenoma(Confirmed) 16 11/2007 Active Urinary incontinence(Confirmed) Active Venous embolism(Confirmed) 17 Active 1PFTs normal in 2010 2recurrent 3bilat 62204's 5-Echo at [facility] on 06-21-14, 6Dr. Ingis 7Read Cardiology note form 12-20-15 8-reported by patient. In 2011 had dobutamine stress test, which showed no EKG findings suggestive of ischemia. 9Lt shoulder 10CT scan of the brain done on 05/14/13- unremarkable 2013-the temporal artery biopsy was negative 12Evaluated by Rheumatology ([facility] and [facility]). Impression is fibromyalgia and OA 13-refuses CPAP 14reported by patient 15-2ary to asthma exacerbation. At [facility] 16Then again on . Had poor prep so it was recommended to repeat it in 1 year with 2 day of clears and 1 day of golytely. 2 medium sized adenomatous appearing polyps were removed [id number] Social History Social History Type Response Smoking Status Former smoker; Other : 2ppd x 5y; Stopped at age: 34; entered on: 09/11/17 Sex
--- OUTSIDE RECORDS SUMMARY | 2023-01-15 16:51 | XMS_ITS | Continuity of Care Document ---
Author Name Unknown Organization [facility] Address Unknown Care Team Providers Care Site Lead Name Role Phone Bety KNIGHT, Ameena Primary Care Physician ( [phone] Encounter [facility] [place] Date(s): 08/30/21 - 09/29/21 [facility] Allergies, Adverse Reactions, Alerts Substance [...] Refills, Maintenance, 07/05/21 12:45:00 EST, Tablet, [id number], Partial fill upon patient request if the prescription is for a schedule II opioid drug., 135, cm, 09/21/20 11:34:00 EDT, Height Start Date: 07/05/21 Status: Ordered clopidogrel 75 mg oral tablet 1, tablet, By Mouth, Daily, ASA allergy, # 30 tablet, Refills 11, Tot. Refills 11, Maintenance, 07/05/21 12:44:00 EST, Route to Pharmacy Electronically, [id number], 135, cm, 09/21/20 11:34:00EDT, Height Start [...] 11 Refills, Maintenance, 07/05/21 12:45:00 EST, [id number], cm, 09/21/20 11:34:00 EDT, Height Start Date: 07/05/21 Stop Date: 06/30/22 Status: Ordered lisinopril 20 mg oral tablet 1, tablet, By Mouth, Daily, # 28 tablet, Refills 11, Tot. Refills 11, Maintenance, 07/05/21 12:45:00 EST, [id number] 135, cm, 09/21/20 11:34:00 EDT, Height Start Date: 07/05/21 Status: Ordered Pen [place], 30 G x 8 mm BD [...] 0 Refills, Maintenance, 09/20/21 14:34:00 EDT, Tablet, [id number] Partial fill upon patient request [...] nfirmed) 15 Active Osteoarthritis(Confirmed) Active Osteoporosis(Confirmed) Active *[id number] Care Partn er Opal Umana(Confirmed) Active Non-compliant patient(Confirmed) Active Respiratory failure requirin g intubation(Confirmed) 2004 Active Tubular adenoma(Confirmed) 17 11/2007 Active Urinary incontinence(Confirmed) Active Venous embolism(Confirmed) 18 Active 1PFTs normal in 2010 2recurrent 3bilat 26476's 5-Echo at [facility] on 06-21-14, 6Dr. Ingis 7Read Cardiology note form 12-20-15 8-reported by patient. In 2011 had dobutamine stress test, which showed no EKG findings suggestive of ischemia. 9-Ltgi-zqijvk today: 10Lt shoulder 11CT scan of the brain done on 05/14/13- unremarkable 12Junch 2013-the temporal artery biopsy was negative 13Evaluated by Rheumatology ([facility] and [facility]). Impression is fibromyalgia and OA 14-refuses CPAP 15reported by patient 16-2ary to asthma exacerbation. At [facility] 17Then again on . Had poor prep so it was recommended to repeat it in 1 year with 2 day of clears and 1 day of golytely. 2 medium sized adenomatous appearing polyps were removed [id number] Social History Social History Type Response Smoking Status Former smoker; Other : 2ppd x 5y; Stopped at age: 34; entered on: 09/11/17 Sex
--- OUTSIDE RECORDS SUMMARY | 2023-01-15 16:51 | XMS_ITS | Continuity of Care Document ---
Author Name Unknown Organization [facility] Address [address] [place] [address]- Care Team Providers Care Joiner Name Role Phone Bety KNIGHT, Ameena Primary Care Physician Encounter [facility] [place] Date(s): 06/24/22 - 07/24/22 [facility] [address]- Attending Physician: Rafa Toney Admitting Physician: AdmtrRafa Referring Physician: Admtr ArEna Allergies, Adverse Reactions, Alerts Substance Reaction Severity Status acetaminophen Active penicillin ITCHING, RASH Active Motrin Active Nuts RASH Active aspirin rash Active tetanus toxoid [...] mg, By Mouth, Daily, Patient will need [employer] pill dispenser, # 30 tablet, 11 [...] tablet, 11 Refills, Maintenance, 10/11/21 10:03:00 EDT, [facility], Partial fill upon patient request if the prescription is for a schedule II opioid drug., 1 tablet By M... Start Date: 10/11/21 Status: Ordered clopidogrel 75 mg oral tablet 1, tablet, By Mouth, Daily, ASA allergy Patient will need [facility] pill dispenser, # 30 tablet, Refills 11, Tot. Refills 11, Maintenance, 10/02/21 13:46:00 EDT, Route to Pharmacy Electronically, [facility], 135, cm, 09/29/21 10:30:00 EDT, He... [...] 07/19/22 17:31:00 EDT, Route to Pharmacy Electronically, [facility], 135, cm, 06/04/22 14:59:00 EST, Height, 55.9, kg, 06/04/22 15:07:00 EST, Dry Weight Start Date: 07/19/22 Status: Ordered Lantus Solostar Pen 100 units/mL subcutaneous solution = 20 units, Subcutaneous Injection, Daily, daily in the morning Patient will need [facility] pill dispenser, # 10 mL, 11 Refills, Maintenance, 10/02/21 13:47:00 EDT, [facility], 09/29/21 10:30:00 EDT, Height Start Date: 10/02/21 Stop Date: 09/27/22 Status: Ordered lisinopril 20 mg oral tablet 1, tablet, By Mouth, Daily, Patient will need [facility] pill dispenser, # 28 tablet, Refills 11, Tot. 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 Ingis 7Read Cardiology note form 12-20-15 8-reported by patient. In 2011 had dobutamine stress test, which showed no EKG findings suggestive of ischemia. 9-Minimental today: 91-Hmsf-ahenss today: 11Lt shoulder 12-admission in 2017 for Left sided weakness and associated headache, ruled out from CVA, likely Complex Migraine 13CT scan of the brain done on 05/14/13- unremarkable 14March 2013-the temporal artery biopsy was negative 15Evaluated by Rheumatology ([facility] and [facility]). Impression is fibromyalgia and OA [...] 34; entered on: 09/11/17 Sex Note * Ameena Albert MD: REVIEW Event Display: X-Ray Hand/Wrist, Non- Authored Date: * Event Display: Non Cardiovascular Results Authored Date: Patient Care team information Care Team Personnel Name: Gavi Arthur RN Position: [facility] PCO RN Member Role: Primary Care Nurse Name: Malgorzata Ugalde RN Position: [facility] SN RN Member Role: Primary Care Nurse Name: Tsering Casey RN Position: [facility] RN Member Role: Primary Care Nurse Name: Ameena Albert MD Position: [facility] Primary Care Physician Member Role: PCP Address: Address: [address] [place] [address]- Name: Aliza Lemon RN Position: [facility] RN Member Role: Primary Care Nurse Name: Tsering Johnson RN Position: [facility] RN Member Role: Primary Care Nurse Care Team Related Persons Name: JCARLOS DOYLE Address: home [address] [facility] [address] [place] [address] Name: GRACE MADRIGAL Address: [place] [address] Name: BERENICE DELA CRUZ
--- OUTSIDE RECORDS SUMMARY | 2023-01-15 16:51 | XMS_ITS | Continuity of Care Document ---
Author Name Unknown Organization [facility] Address [address] [place] [address]- Care Team Providers Care Chorus Dancer Name Role Phone Bety KNIGHT, Ameena Primary Care Physician ( [phone] Encounter [facility] [place] [place] Date(s): 10/21/22 - 11/20/22 [facility]/[place] [address]- [place] Allergies, Adverse Reactions, Alerts Substance Reaction [...] tablet, 1 Refills, Maintenance, 11/05/22 13:52:00 EDT, [facility], Partial fill upon patient request if the prescription is for a schedule II opioid drug., 1 tablet By Mo... Start Date: 11/05/22 Status: Ordered clopidogrel 75 mg oral tablet 1, tablet, By Mouth, Daily, R1., # 30 tablet, Refills 11, Maintenance, 09/12/22 14:29:00 EDT, [facility] Electron[facility], [facility], 135, cm, 06/04/22 14:59:00 EST, [...] 07/19/22 17:31:00 EDT, Route to Pharmacy Electronically, [facility], 135, cm, 06/04/22 14:59:00 EST, Height, 55.9, kg, 06/04/22 15:07:00 EST, Dry Weight Start Date: 07/19/22 Status: Ordered Lantus Solostar Pen 100 units/mL subcutaneous solution = 20 units, Subcutaneous Injection, Daily, daily in the morning Patient will need [facility] pill dispenser, # 10 mL, 2 Refills, Maintenance, 11/05/22 13:51:00 EDT, Solution, [facility], 135, cm, 06/04/22 14:59:00 EST, Height, 55.9, kg, ... Start Date: 11/05/22 Stop Date: 02/03/23 Status: Ordered lisinopril 20 mg oral tablet 1, tablet, By Mouth, Daily, Patient will need [facility] pill dispenser, # 28 tablet, Refills 11, Tot. 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 Ingis 7Read Cardiology note form 12-20-15 8-reported by patient. In 2011 had dobutamine stress test, which showed no EKG findings suggestive of ischemia. 9-Minimental today: 19-Uesa-wzmmjq today: 11Lt shoulder 12-admission in 2017 for Left sided weakness and associated headache, ruled out from CVA, likely Complex Migraine 13CT scan of the brain done on 05/14/13- unremarkable 14March 2013-the temporal artery biopsy was negative 15Evaluated by Rheumatology ([facility] Impression is fibromyalgia and OA 16-refuses CPAP 17reported by patient 18-2ary to asthma exacerbation. At [facility] 19Then again on . Had poor prep [...] Team Personnel Name: Gavi Arthur RN Position: [facility] AMB Nurse Member Role: Primary Care Nurse Name: Malgorzata Ugalde RN Position: [facility] RN Member Role: Primary Care Nurse Name: Tsering Casey RN Position: [facility] RN Member Role: Primary Care Nurse Name: Ameena Albert MD Position: [facility] Physician - Primary Care Member Role: PCP Address: Address: [address] [place] [address]- [place] Name: Aliza Lemon RN Position: S RN Member Role: Primary Care Nurse Name: Tsering Johnson RN Position: S RN Member Role: Primary Care Nurse Care Team Related Persons Name: DOYLEJCARLOS Kramer Address: home [address] [facility] [address] [place] [address] Name: GRACE MADRIGAL Address: [place] [address] Name: BERENICE DELA 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
--- OUTSIDE RECORDS SUMMARY | 2023-01-15 16:51 | XMS_ITS | Continuity of Care Document ---
Author Name Unknown Organization [facility] Address [address] [place] [address]- Care Team Providers Care Manager Behavior Name Role Phone Bety KNIGHT, Ameena Primary Care Physician ( [phone] Encounter [facility] [place] [place] Date(s): 12/25/21 - 01/24/22 [facility]/[place] [address]- [place] Allergies, Adverse Reactions, Alerts Substance Reaction [...] 11/14/2214:05:00 EDT, Aerosol, Route to Pharmacy Electronically, NCPDP_[id number], [facility], 135,cm, 10/11/21 9:20:00 EDT, Height Start Date: 11/14/21 Status: Ordered atorvastatin 20 mg oral tablet 1 tablet = 20 mg, By Mouth, Daily, Patient will need [employer] pill dispenser, # 30 tablet, 11 Refills, Maintenance, 10/02/21 13:46:00 EDT, Tablet, [facility], Partial fill upon patient request if the prescription is for a schedule II opioid d... Start Date: 10/02/21 Status: Ordered Calcium 600 +D oral tablet 1 tablet, By Mouth, 2 times a day, calcium 600 and Vit D 400 units, # 90 tablet, 11 Refills, Maintenance, 10/11/21 10:03:00 EDT, [facility], Partial fill upon patient request if the prescription is for a schedule II opioid drug., 1 tablet By M... Start Date: 10/11/21 Status: Ordered clopidogrel 75 mg oral tablet 1, tablet, By Mouth, Daily, ASA allergy Patient will need [employer] pill dispenser, # 30 tablet, Refills 11, Tot. Refills 11, Maintenance, 10/02/21 13:46:00 EDT, Route to Pharmacy Electronically, [facility], 135, cm, 09/29/21 10:30:00 EDT, [...] 01/24/22 16:49:00 EDT, Route to Pharmacy Electronically, [facility], 135, cm, 10/11/21 9:20:00 EDT, Height Start Date: 01/24/22 Status: Ordered Lantus Solostar Pen 100 units/mL subcutaneous solution = 20 units, Subcutaneous Injection, Daily, daily in the morning Patient will need [employer] pill dispenser, # 10 mL, 11 Refills, Maintenance, 10/02/21 13:47:00 EDT, Solution, [facility], 135,cm, 09/29/21 10:30:00 EDT, Height Start Date: 10/02/21 Stop Date: 09/27/22 Status: Ordered lisinopril 20 mg oral tablet 1, tablet, By Mouth, Daily, Patient will need [employer] pill dispenser, # 28 tablet, Refills 11, Tot. 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 Ingis 7Read Cardiology note form 12-20-15 8-reported by patient. In 2011 had dobutamine stress test, which showed no EKG findings suggestive of ischemia. 9-Minimental today: 37-Hmpd-eqqaqb today: 11Lt shoulder 12-admission in 2017 for Left sided weakness and associated headache, ruled out from CVA, likely Complex Migraine 13CT scan of the brain done on 05/14/13- unremarkable 14March 2013-the temporal artery biopsy was negative 15Evaluated by Rheumatology ([facility] and [facility] Impression is fibromyalgia and OA 16-refuses CPAP 17reported by patient 18-2ary to asthma exacerbation. At [facility] 19Then again on . Had poor [...] Personnel Name: Ameena Albert MD Address: Address: [address] [place] [address]-
--- OUTSIDE RECORDS SUMMARY | 2023-01-15 16:52 | XMS_ITS | Continuity of Care Document ---
Author Name Unknown Organization [facility] Address [address] [place] [id number]- Care Team Providers Care Scrap Crane Operator Name Role Phone Bety KNIGHT, Ameena Primary Care Physician ( [phone] Encounter [facility] [place] Date(s): 03/27/22 - 04/26/22 [facility]/[place] [address]- [place] Allergies, Adverse Reactions, Alerts Substance Reaction [...] mg, By Mouth, Daily, Patient will need [employer] pill dispenser, # 30 tablet, 11 Refills, Maintenance, 10/02/21 13:46:00 EDT, Tablet, [facility], Partial fill upon patient request if the prescription is for a schedule II opioid d... Start Date: 10/02/21 Status: Ordered Calcium 600 +D oral tablet 1 tablet, By Mouth, 2 times a day, calcium 600 and Vit D 400 units, # 90 tablet, 11 Refills, Maintenance, 10/11/21 10:03:00 EDT, [facility], Partial fill upon patient request if the prescription is for a schedule II opioid drug., 1 tablet By M... Start Date: 10/11/21 Status: Ordered clopidogrel 75 mg oral tablet 1, tablet, By Mouth, Daily, ASA allergy Patient will need [facility] pill dispenser, # 30 tablet, Refills 11, Tot. Refills 11, Maintenance, 10/02/21 13:46:00 EDT, Route to Pharmacy Electronically, [facility], 135, cm, 09/29/21 10:30:00 EDT, He... [...] in AM, ^2R1., # 60 capsule, Refills 0, Maintenance, 12/05/22 13:08:00 EST, Route to Pharmacy Electronically, [facility], 135, cm, 10/11/21 9:20:00 EDT, Height Start Date: 04/01/22 Status: Ordered Lantus Solostar Pen 100 units/mL subcutaneous solution = 20 units, Subcutaneous Injection, Daily, daily in the morning Patient will need [facility] pill dispenser, # 10 mL, 11 Refills, Maintenance, 10/02/21 13:47:00 EDT, Solution, [facility], 135,cm, 09/29/21 10:30:00 EDT, Height Start Date: 10/02/21 Stop Date: 09/27/22 Status: Ordered lisinopril 20 mg oral tablet 1, tablet, By Mouth, Daily, Patient will need [facility] pill dispenser, # 28 tablet, Refills 11, Tot. Refills 11, Maintenance, 10/02/21 13:48:00 EDT, Route to Pharmacy Electronically, [facility], 135, cm, 09/29/21 10:30:00 EDT, Height Start Date: 10/02/21 Status: Ordered Pen [place], 30 G x 8 mm BD Ultra [...] BREATH, # 18 Gm, 2 Refills, Maintenance, 02/18/22 9:22:00 EDT, [facility], 135, cm, 10/11/21 9:20:00 EDT, Height Start Date: 02/18/22 Status: Ordered Problem List Condition Confirmation Course [...] Active Osteoarthritis Confirmed Active Osteoporosis Confirmed Active *[id number] Repairer Handtools Opal Umana Confirmed Active Non-compliant patient Confirmed Active Respiratory failure requiring intubation 18 Confirmed 2004 Active Tubular adenoma 19 Confirmed 11/2007 Active Urinary incontinence Confirmed Active Venous embolism 20 Confirmed Active 1PFTs normal in 2010 2recurrent 3bilat 10489's 5-Echo at [facility] on 06-21-14, 6Dr. Ingis 7Read Cardiology note form 12-20-15 8-reported by patient. In 2011 had dobutamine stress test, which showed no EKG findings suggestive of ischemia. 9-Minimental today: 08-Ogzm-khrnaj today: 11Lt shoulder 12-admission in 2017 for Left sided weakness and associated headache, ruled out from CVA, likely Complex Migraine 13CT scan of the brain done on 05/14/13- unremarkable 14March 2013-the temporal artery biopsy was negative 15Evaluated by Rheumatology ([facility] and [facility]). Impression is fibromyalgia and OA 16-refuses CPAP 17reported by patient 18-2ary to asthma exacerbation. At [facility] 19Then again on . [...] Arthur RN Position: [facility] EDELO RN Member Role: Primary Care Nurse Name: Malgorzata Ugalde RN Position: Sheri JOHN RN Member Role: Primary Care Nurse Name: Tsering Casey RN Position: S RN Member Role: Primary Care Nurse Name: Ameena Albert MD Position: [facility] Primary Care Physician Member Role: PCP Address: Address: [address] [place] [address]- Name: Aliza Lemon RN Position: S RN Member Role: Primary Care Nurse Name: Tsering Johnson RN Position: [facility] RN Member Role: Primary Care Nurse Care Team Related Persons Name: JCARLOS DOYLE Address: home [address] [facility] [address] [place] [address] Name: GRACE MADRIGAL Address: [place] [address] Name: BERENICE DELA CRUZ TYPESETTER APPRENTICE
--- OUTSIDE RECORDS SUMMARY | 2023-01-15 16:52 | XMS_ITS | Continuity of Care Document ---
Author Name Unknown Organization [facility] Address Unknown Care Team Providers Care Biodiesel Production Technician Name Role Phone Bety KNIGHT, Ameena Primary Care Physician Encounter [facility] [place] Date(s): 10/18/21 - 11/17/21 [facility] Allergies, Adverse Reactions, Alerts [...] 11/14/2214:05:00 EDT, Aerosol, Route to Pharmacy Electronically, NCPDP_[id number], [facility], 135,cm, 10/11/21 9:20:00 EDT, Height Start Date: 11/14/21 Status: Ordered atorvastatin 20 mg oral tablet 1 tablet = 20 mg, By Mouth, Daily, Patient will need [facility] pill dispenser, # 30 tablet, 11 Refills, Maintenance, 10/02/21 13:46:00 EDT, Tablet, [facility], Partial fill upon patient request if the prescription is for a schedule II opioid d... Start Date: 10/02/21 Status: Ordered Calcium 600 +D oral tablet 1 tablet, By Mouth, 2 times a day, calcium 600 and Vit D 400 units, # 90 tablet, 11 Refills, Maintenance, 10/11/21 10:03:00 EDT, [facility], Partial fill upon patient request if the prescription is for a schedule II opioid drug., 1 tablet By M... Start Date: 10/11/21 Status: Ordered clopidogrel 75 mg oral tablet 1, tablet, By Mouth, Daily, ASA allergy Patient will need [facility] pill dispenser, # 30 tablet, Refills 11, Tot. Refills 11, Maintenance, 10/02/21 13:46:00 EDT, Route to Pharmacy Electronically, [facility], 135, cm, 09/29/21 10:30:00 EDT, He... [...] 10/31/21 15:01:00 EDT, Route to Pharmacy Electronically, [facility], Partial fill upon patient request if the pr... Start Date: 10/31/21 Stop Date: 12/30/21 Status: Ordered Lantus Solostar Pen 100 units/mL subcutaneous solution = 20 units, Subcutaneous Injection, Daily, daily in the morning Patient will need [facility] pill dispenser, # 10 mL, 11 Refills, Maintenance, 10/02/21 13:47:00 EDT, Solution, [facility], 135,cm, 09/29/21 10:30:00 EDT, Height Start Date: 10/02/21 Stop Date: 09/27/22 Status: Ordered lisinopril 20 mg oral tablet 1, tablet, By Mouth, Daily, Patient will need [facility] pill dispenser, # 28 tablet, Refills 11, Tot. Refills 11, Maintenance, 10/02/21 13:48:00 EDT, Route to Pharmacy Electronically, [facility], 135, cm, 09/29/21 10:30:00 EDT, Height Start Date: 10/02/21 Status: Ordered Pen [place], 30 G x 8 mm BD Ultra [...] nfirmed) 17 Active Osteoarthritis(Confirmed) Active Osteoporosis(Confirmed) Active *[id number] Care Partn er Opal Dong(Confirmed) Active Non-compliant patient(Confirmed) Active Respiratory failure requirin g intubation(Confirmed) 2004 Active Tubular adenoma(Confirmed) 19 11/2007 Active Urinary incontinence(Confirmed) Active Venous embolism(Confirmed) 20 Active 1PFTs normal in 2010 2recurrent 3bilat 83519's 5-Echo at [facility] on 06-21-14, 6Dr. Ingis 7Read Cardiology note form 12-20-15 8-reported by patient. In 2011 had dobutamine stress test, which showed no EKG findings suggestive of ischemia. 9-Minimental today: 96-Aaoq-wcvtjg today: 11Lt shoulder 12-admission in 2016 for Left sided weakness and associated headache, ruled out from CVA, likely Complex Migraine 13CT scan of the brain done on 05/14/13- unremarkable 14March 2013-the temporal artery biopsy was negative 15Evaluated by Rheumatology ([facility] and [facility]). Impression is fibromyalgia and OA 16-refuses CPAP 17reported by patient 18-2ary to asthma exacerbation. At [facility] 19Then again on . Had [...]
--- OUTSIDE RECORDS SUMMARY | 2023-01-15 16:52 | XMS_ITS | Continuity of Care Document ---
Author Name Unknown Organization [facility] Address Unknown Care Team Providers Care Ship Fastener Name Role Phone Bety KNIGHT, Ameena Primary Care Physician Encounter [place] Date(s): 09/14/21 - 10/14/21 [facility] Allergies, Adverse Reactions, Alerts Substance [...] mg, By Mouth, Daily, Patient will need [employer] pill dispenser, # 30 tablet, 11 Refills, Maintenance, 10/02/21 13:46:00 EDT, Tablet, [facility], Partial fill upon patient request if the prescription is for a schedule II opioid d... Start Date: 10/02/21 Status: Ordered Calcium 600 +D oral tablet 1 tablet, By Mouth, 2 times a day, calcium 600 and Vit D 400 units, # 90 tablet, 11 Refills, Maintenance, 10/11/21 10:03:00 EDT, [facility], Partial fill upon patient request if the prescription is for a schedule II opioid drug., 1 tablet By M... Start Date: 10/11/21 Status: Ordered clopidogrel 75 mg oral tablet 1, tablet, By Mouth, Daily, ASA allergy Patient will need [facility] pill dispenser, # 30 tablet, Refills 11, Tot. Refills 11, Maintenance, 10/02/21 13:46:00 EDT, Route to Pharmacy Electronically, [facility], 135, cm, 09/29/21 10:30:00 EDT, He... [...] 10/09/21 20:56:00 EDT, Route to Pharmacy Electronically, [facility], Partial fill upon patient request if the pr... Start Date: 10/09/21 Stop Date: 11/08/21 Status: Ordered Lantus Solostar Pen 100 units/mL subcutaneous solution = 20 units, Subcutaneous Injection, Daily, daily in the morning Patient will need [facility] pill dispenser, # 10 mL, 11 Refills, Maintenance, 10/02/21 13:47:00 EDT, Solution, [facility], 135,cm, 09/29/21 10:30:00 EDT, Height Start Date: 10/02/21 Stop Date: 09/27/22 Status: Ordered lisinopril 20 mg oral tablet 1, tablet, By Mouth, Daily, Patient will need [facility] pill dispenser, # 28 tablet, Refills 11, Tot. Refills 11, Maintenance, 10/02/21 13:48:00 EDT, Route to Pharmacy Electronically, [facility], 135, cm, 09/29/21 10:30:00 EDT, Height Start Date: 10/02/21 Status: Ordered Pen [place], 30 G x 8 mm BD Ultra [...] nfirmed) 17 Active Osteoarthritis(Confirmed) Active Osteoporosis(Confirmed) Active *[id number] Care Partn er Opal Umana(Confirmed) Active Non-compliant patient(Confirmed) Active Respiratory failure requirin g intubation(Confirmed) 2004 Active Tubular adenoma(Confirmed) 19 11/2007 Active Urinary incontinence(Confirmed) Active Venous embolism(Confirmed) 20 Active 1PFTs normal in 2010 2recurrent 3bilat 89546's 5-Echo at [facility] on 06-21-14, 6Dr. Ingis 7Read Cardiology note form 24-16 8-reported by patient. In 2011 had dobutamine stress test, which showed no EKG findings suggestive of ischemia. 9-Minimental today: 68-Jlib-mpjzcy today: 11Lt shoulder 12-admission in 2017 for Left sided weakness and associated headache, ruled out from CVA, likely Complex Migraine 13CT scan of the brain done on 05/14/13- unremarkable 14March 2013-the temporal artery biopsy was negative 15Evaluated by Rheumatology ([facility] Impression is fibromyalgia and OA 16-refuses CPAP 17reported by patient 18-2ary to asthma exacerbation. At [facility] 19Then again on . Had [...]
--- OUTSIDE RECORDS SUMMARY | 2023-01-15 16:52 | XMS_ITS | Continuity of Care Document ---
Author Name Unknown Organization [facility] Address Unknown Care Team Providers Care Art Gallery Director Name Role Phone Bety KNIGHT, Ameena Primary Care Physician Encounter [facility] [place] Date(s): 07/06/21 - 08/05/21 [facility] Allergies, Adverse Reactions, Alerts Substance [...] Refills, Maintenance, 07/05/21 12:45:00 EST, Tablet, [id number], Partial fill upon patient request if the prescription is for a schedule II opioid drug., 135, cm, 09/21/20 11:34:00 EDT, Height Start Date: 07/05/21 Status: Ordered clopidogrel 75 mg oral tablet 1, tablet, By Mouth, Daily, ASA allergy, # 30 tablet, Refills 11, Tot. Refills 11, Maintenance, 07/05/21 12:44:00 EST, Route to Pharmacy Electronically, [facility]acy #[id number], 135, cm, 09/21/20 11:34:00EDT, Height [...] 11 Refills, Maintenance, 07/05/21 12:45:00 EST, Solution, [facility]/pharmacy #[id number], 135, cm, 09/21/20 11:34:00 EDT, Height Start Date: 07/05/21 Stop Date: 06/30/22 Status: Ordered lisinopril 20 mg oral tablet 1, tablet, By Mouth, Daily, # 28 tablet, Refills 11, Tot. Refills 11, Maintenance, 07/05/21 12:45:00 EST, Route to Pharmacy Electronically, [facility]/pharmacy #[id number], 135, cm, 09/21/20 11:34:00 EDT, Height Start Date: 07/05/21 Status: Ordered Pen [place], 30 G x 8 mm BD Ultra [...] nfirmed) 15 Active Osteoarthritis(Confirmed) Active Osteoporosis(Confirmed) Active *[id number] Care Partn er Opal Umana(Confirmed) Active Non-compliant patient(Confirmed) Active Respiratory failure requirin g intubation(Confirmed) 16 2004 Active Tubular adenoma(Confirmed) 17 11/2007 Active Urinary incontinence(Confirmed) Active Venous embolism(Confirmed) 18 Active 1PFTs normal in 2010 2recurrent 3bilat 00264's 5-Echo at [facility] on 06-21-14, 6Dr. Ingis 7Read Cardiology note form 12-20-15 8-reported by patient. In 2011 had dobutamine stress test, which showed no EKG findings suggestive of ischemia. 5-Ucon-urdrgy today: 10Lt shoulder 11CT scan of the brain done on 05/14/13- unremarkable 12Junch 2013-the temporal artery biopsy was negative 13Evaluated by Rheumatology ([facility] and [facility]). Impression is fibromyalgia and OA 14-refuses CPAP 15reported by patient 16-2ary to asthma exacerbation. At [facility] 17Then again on . Had poor prep so it was recommended to repeat it in 1 year with 2 day of clears and 1 day of golytely. 2 medium sized adenomatous appearing polyps were removed [id number] Social History Social History Type Response Smoking Status Former smoker; Other : 2ppd x 5y; Stopped at age: 34; entered on: 09/11/17 Sex
--- OUTSIDE RECORDS SUMMARY | 2023-01-15 16:52 | XMS_ITS | Continuity of Care Document ---
Author Name Unknown Organization [facility] Address Unknown Care Team Providers Care Damage Prevention Coordinator Name Role Phone Bety KNIGHT, Ameena Primary Care Physician Encounter [facility] [place] Date(s): 09/05/21 - 10/05/21 [facility] Allergies, Adverse Reactions, Alerts Substance [...] mg, By Mouth, Daily, Patient will need [employer] pill dispenser, # 30 tablet, 11 Refills, Maintenance, 10/02/21 13:46:00 EDT, Tablet, [facility], Partial fill upon patient request if the prescription is for a schedule II opioid d... Start Date: 10/02/21 Status: Ordered Calcium 600 +D oral tablet 1 tablet, By Mouth, 3 times a day, calcium 600 and Vit D 400 units, # 90 tablet, 11 Refills, Maintenance, 10/02/21 13:33:00 EDT, [facility], Partial fill upon patient request if the prescription is for a schedule II opioid drug., 1 tablet By M... Start Date: 10/02/21 Status: Ordered clopidogrel 75 mg oral tablet 1, tablet, By Mouth, Daily, ASA allergy Patient will need [employer] pill dispenser, # 30 tablet, Refills 11, Tot. Refills 11, Maintenance, 10/02/21 13:46:00 EDT, Route to Pharmacy Electronically, [facility], 135, cm, 09/29/21 10:30:00 EDT, He... [...] 09/29/21 11:07:00 EDT, Route to Pharmacy Electronically, [facility]/pharmacy #[id number], Partial fill upon patient request if the prescription is... Start Date: 09/29/21 Stop Date: 10/29/21 Status: Ordered Lantus Solostar Pen 100 units/mL subcutaneous solution = 20 units, Subcutaneous Injection, Daily, daily in the morning Patient will need [employer] pill dispenser, # 10 mL, 11 Refills, Maintenance, 10/02/21 13:47:00 EDT, Solution, [facility], 135,cm, 09/29/21 10:30:00 EDT, Height Start Date: 10/02/21 Stop Date: 09/27/22 Status: Ordered lisinopril 20 mg oral tablet 1, tablet, By Mouth, Daily, Patient will need [employer] pill dispenser, # 28 tablet, Refills 11, Tot. Refills 11, Maintenance, 10/02/21 13:48:00 EDT, Route to Pharmacy Electronically, [facility], 135, cm, 09/29/21 10:30:00 EDT, Height Start Date: 10/02/21 Status: Ordered Pen [place], 30 G x 8 mm BD [...] nfirmed) 15 Active Osteoarthritis(Confirmed) Active Osteoporosis(Confirmed) Active *[id number] Care Partn er Opaldora Lópeze(Confirmed) Active Non-compliant patient(Confirmed) Active Respiratory failure requirin g intubation(Confirmed) 16 2004 Active Tubular adenoma(Confirmed) 17 11/2007 Active Urinary incontinence(Confirmed) Active Venous embolism(Confirmed) 18 Active 1PFTs normal in 2010 2recurrent 3bilat 89025's 5-Echo at [facility] on 06-21-14, 6Dr. Ingis 7Read Cardiology note form 12-19- 8-reported by patient. In 2011 had dobutamine stress test, which showed no EKG findings suggestive of ischemia. 8-Xoqc-lqyguv today: 10Lt shoulder 11CT scan of the brain done on 05/14/13- unremarkable 12March 2013-the temporal artery biopsy was negative 13Evaluated by Rheumatology ([facility] and [facility]). Impression is fibromyalgia and OA 14-refuses CPAP 15reported by patient 16-2ary to asthma exacerbation. At [facility] 17Then again on . Had poor prep so it was recommended to repeat it in 1 year with 2 day of clears and 1 day of golytely. 2 medium sized adenomatous appearing polyps were removed [id number] Social History Social History Type Response Smoking Status Former smoker; Other : 2ppd x 5y; Stopped at age: 34; entered on: 09/11/17 Sex
--- OUTSIDE RECORDS SUMMARY | 2023-01-15 16:52 | XMS_ITS | Continuity of Care Document ---
Author Name Unknown Organization [facility] Address [address] [place] [address]- Care Team Providers Care Supervisor Assembly And Packing Name Role Phone Bety KNIGHT, Bakari Primary Care Physician [place] [facility] [place]14[place]22 [facility] [address] [place] [address]- Attending Physician: Rafa Toney Admitting Physician: AdmtrRafa [...] Refills, Maintenance, 12/10/22 16:06:00 EDT, Tablet, [id number], Partial fill upon patient request if the prescription is for a schedule II opioid drug., 135, cm, 12/09/22 11:51:00 EDT, Height,... Start Date: 12/10/22 Status: Ordered clopidogrel 75 mg oral tablet 1, tablet, By Mouth, Daily, Hx of CVA and ASA allergy, # 90 tablet, Refills 3, Tot. Refills 3, Maintenance, 12/10/22 16:55:00 EDT, Route to Pharmacy Electronically, [facility]/pharmacy #[id number], please note that diagnosis was changed and [...] 12/10/22 16:08:00 EDT, Route to Pharmacy Electronically, [facility]/pharmacy #[id number], 135, cm, 12/09/22 11:51:00 EDT, Height, 55.9, kg, 06/04/22 15:07:00 EST, Dry Weight Start Date: 12/10/22 Stop Date: 12/05/23 Status: Ordered Lantus Solostar Pen 100 units/mL subcutaneous solution = 20 units, Subcutaneous Injection, Daily, daily in the morning, # 15 mL, 2 Refills, Maintenance, 12/10/22 16:12:00 EDT, Solution, [facility]/pharmacy #[id number], 135, cm, 12/09/22 11:51:00 EDT, Height, 55.9, kg, 06/04/22 15:07:00 EST, Dry Weight Start Date: 12/10/22 Stop Date: 09/06/23 Status: Ordered lisinopril 20 mg oral tablet 1, tablet, By Mouth, Daily, # 90 tablet, Refills 3, Tot. Refills 3, Maintenance, 12/10/22 16:06:00 EDT, Route to Pharmacy Electronically, [facility]/pharmacy #[id number], 135, cm, 12/09/22 11:51:00 EDT, Height, 55.9, kg, 06/04/22 15:07:00 EST, Dry Weight Start Date: 12/10/22 Stop Date: 12/05/23 Status: Ordered Pen [place], 30 G x 8 mm BD Ultra [...] tablet, 3 Refills, Maintenance, 12/10/22 16:10:00 EDT, [facility]/pharmacy #[id number], Partial fill upon patient request [...] Replace Required Details, Route to Pharmacy Electronically, [facility]/pharmacy #[id number], Partial fill upon... 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 Ingis 7 She has multiple chest discomfort sensations none of which are particularly anginal in nature. [place] had multiple stress tests in the past all of which is been negative. 8Read Cardiology note form 8-24-16 9-reported by patient. In 2011 had dobutamine stress test, which showed no EKG findings suggestive of ischemia. 10-Minimental today: 27-Fzto-fisprm today: 12Lt shoulder 13-admission in 2017 for Left sided weakness and associated headache, ruled out from CVA, likely Complex Migraine 14CT scan of the brain done on 05/14/13- unremarkable 15March 2013-the temporal artery biopsy was negative 16Evaluated by Rheumatology ([facility] and [facility] Impression is fibromyalgia and OA 17-refuses CPAP 18-2ary to asthma exacerbation. At [facility] 19Then again on . Had poor [...] Team Personnel Name: Gavi Arthur RN Position: [facility] AMB Nurse Member Role: Primary Care Nurse Name: Malgorzata Ugalde RN Position: [facility] SN RN Member Role: Primary Care Nurse Name: Tsering Casey RN Position: [facility] RN Member Role: Primary Care Nurse Name: Bakari Albert MD Position: [facility] Physician - Primary Care Member Role: PCP Address: Address: [address] [place] [address] Name: Aliza Lemon RN Position: [facility] RN Member Role: Primary Care Nurse Name: Tsering Johnson RN Position: [facility] RN Member Role: Primary Care Nurse Care Team Related Persons Name: JCARLOS DOYLE Address: home [address] [facility] [address] [place] [address] Name: JUAN M SILVA Name: GRACE MADRIGAL Address: [place] [address] Name: BERENICE DELA CRUZ
--- OUTSIDE RECORDS SUMMARY | 2023-01-15 16:52 | XMS_ITS | Continuity of Care Document ---
Author Name Unknown Organization [facility] Address [address] [place] [address]- Care Team Providers Care Photo Stylist Name Role Phone Bety KNIGHT, Ameena Primary Care Physician Encounter [facility] [place] Date(s): 10/28/22 - 11/27/22 [facility] [address]- [place] Allergies, Adverse Reactions, Alerts Substance Reaction Severity Status acetaminophen Active penicillin ITCHING, RASH Active Motrin Active Benadryl RASH, VOMITING Active Nuts RASH Active aspirin rash Active tetanus toxoid SWELLING Active Latex SWELLING Active Egg Allergy TONGUE [...] tablet, 1 Refills, Maintenance, 11/05/22 13:52:00 EDT, [facility], Partial fill upon patient request if the prescription is for a schedule II opioid drug., 1 tablet By Mo... Start Date: 11/05/22 Status: Ordered clopidogrel 75 mg oral tablet 1, tablet, By Mouth, Daily, R1., # 30 tablet, Refills 11, Maintenance, 09/12/22 14:29:00 EDT, [facility] Electron[facility], [facility], 135, cm, 06/04/22 14:59:00 EST, [...] 07/19/22 17:31:00 EDT, Route to Pharmacy Electronically, [facility], 135, cm, 06/04/22 14:59:00 EST, Height, 55.9, kg, 06/04/22 15:07:00 EST, Dry Weight Start Date: 07/19/22 Status: Ordered Lantus Solostar Pen 100 units/mL subcutaneous solution = 20 units, Subcutaneous Injection, Daily, daily in the morning Patient will need [facility] pill dispenser, # 10 mL, 2 Refills, Maintenance, 11/05/22 13:51:00 EDT, Solution, [facility], 135, cm, 06/04/22 14:59:00 EST, Height, 55.9, kg, ... Start Date: 11/05/22 Stop Date: 02/03/23 Status: Ordered lisinopril 20 mg oral tablet 1, tablet, By Mouth, Daily, Patient will need [facility] pill dispenser, # 28 tablet, Refills 11, Tot. Refills 11, Maintenance, 10/02/21 13:48:00 EDT, Route to Pharmacy Electronically, [facility], 135, cm, 09/29/21 10:30:00 EDT, Height Start Date: 10/02/21 Status: Ordered Pen [place], 30 G x 8 mm BD Ultra [...] Active Osteoarthritis Confirmed Active Osteoporosis Confirmed Active [id number] [place] Pen Turner Kayce Byrne Confirmed Active Non-compliant patient Confirmed Active Respiratory failure requiring intubation 18 Confirmed 2004 Active Tubular adenoma 19 Confirmed 11/2007 Active Urinary incontinence Confirmed Active Venous embolism 20 Confirmed Active 1PFTs normal in 2010 2recurrent 3bilat [address]'s 5-Echo at [facility] on 06-21-14, 6Dr. Ingis 7Read Cardiology note form 12-20-15 8-reported by patient. In 2011 had dobutamine stress test, which showed no EKG findings suggestive of ischemia. 9-Minimental today: 92-Qius-czddmt today: 11Lt shoulder 12-admission in 2017 for Left sided weakness and associated headache, ruled out from CVA, likely Complex Migraine 13CT scan of the brain done on 05/14/13- unremarkable 14March 2013-the temporal artery biopsy was negative 15Evaluated by Rheumatology ([facility] and [facility]). Impression is fibromyalgia and OA 16-refuses CPAP 17reported by patient 18-2ary to asthma exacerbation. At [facility] 19Then again on . Had poor prep [...] Name: Gavi Arthur RN Position: [facility] AMB Nurse Member Role: Primary Care Nurse Name: Malgorzata Ugalde RN Position: [facility] RN Member Role: Primary Care Nurse Name: Tsering Casey RN Position: [facility] RN Member Role: Primary Care Nurse Name: Ameena Albert MD Position: [facility] Physician - Primary Care Member Role: PCP Address: Address: [address] [place] [address]- [place] Name: Aliza Lemon RN Position: S RN Member Role: Primary Care Nurse Name: Tsering Johnson RN Position: S RN Member Role: Primary Care Nurse Care Team Related Persons Name: DOYLEJCARLOS Kramer Address: home [address] [facility] [address] [place] [address] Name: GRACE MADRIGAL Address: [place] [address] Name: BERENICE DELA CRUZ 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
--- OUTSIDE RECORDS SUMMARY | 2023-01-15 16:52 | XMS_ITS | Continuity of Care Document ---
Author Name Unknown Organization [facility] Address Unknown Care Team Providers Care Marketing Account Executive Name Role Phone Bety KNIGHT, Ameena Primary Care Physician [place] [facility] 08/08/21 [facility] Attending Physician: Ameena Albert MD Admitting [...] Refills, Maintenance, 07/05/21 12:45:00 EST, [facility]t, [id number], Partial fill upon patient request if the prescription is for a schedule II opioid drug., 135, cm, 09/21/20 11:34:00 EDT, Height Start Date: 07/05/21 Status: Ordered clopidogrel 75 mg oral tablet 1, tablet, By Mouth, Daily, ASA allergy, # 30 tablet, Refills 11, Tot. Refills 11, Maintenance, 07/05/21 12:44:00 EST, Route to Pharmacy Electronically, [facility]/pharmacy #[id number], 135, cm, 09/21/20 11:34:00EDT, Height [...] Refills, Maintenance, 07/05/21 12:45:00 EST, Solution, [facility]/pharmacy #[id number], 135, cm, 09/21/20 11:34:00 EDT, Height Start Date: 07/05/21 Stop Date: 06/30/22 Status: Ordered lisinopril 20 mg oral tablet 1, tablet, By Mouth, Daily, # 28 tablet, Refills 11, Tot. Refills 11, Maintenance, 07/05/21 12:45:00 EST, Route to Pharmacy Electronically, [facility]/pharmacy #[id number], 135, cm, 09/21/20 11:34:00 EDT, Height Start Date: 07/05/21 Status: Ordered Pen [place], 30 G x 8 mm BD Ultra [...] nfirmed) 15 Active Osteoarthritis(Confirmed) Active Osteoporosis(Confirmed) Active *[id number] Care Partn er Opal Dong(Confirmed) Active Non-compliant patient(Confirmed) Active Respiratory failure requirin g intubation(Confirmed) 2004 Active Tubular adenoma(Confirmed) 17 11/2007 Active Urinary incontinence(Confirmed) Active Venous embolism(Confirmed) 18 Active 1PFTs normal in 2010 2recurrent 3bilat [address]'s 5-Echo at [facility] on 06-21-14, 6Dr. Ingis 7Read Cardiology note form 12-20-15 8-reported by patient. In 2011 had dobutamine stress test, which showed no EKG findings suggestive of ischemia. 1-Edzf-puohnj today: 10Lt shoulder 11CT scan of the brain done on 05/14/13- unremarkable ch 2013-the temporal artery biopsy was negative 13Evaluated by Rheumatology ([facility] and [facility]). Impression is fibromyalgia and OA 14-refuses CPAP 15reported by patient 16-2ary to asthma exacerbation. At [facility] 17Then again on . Had poor prep so it was recommended to repeat it in 1 year with 2 day of clears and 1 day of golytely. 2 medium sized adenomatous appearing polyps were removed [id number] Social History Social History Type Response Smoking Status Former smoker; Other : 2ppd x 5y; Stopped at age: 34; entered on: 09/11/17 Sex
--- OUTSIDE RECORDS SUMMARY | 2023-01-15 16:52 | XMS_ITS | Continuity of Care Document ---
Author Name Unknown Organization [facility] Address [address] [place] [address]- Care Team Providers Care Wafer Production Worker Name Role Phone Bety KNIGHT, Ameena Primary Care Physician Encounter [facility] [place] Date(s): 07/24/22 - 08/23/22 [facility]/[address] [address]- [place] Allergies, Adverse Reactions, Alerts Substance Reaction [...] tablet, 11 Refills, Maintenance, 10/11/21 10:03:00 EDT, [facility], Partial fill upon patient request if the prescription is for a schedule II opioid drug., 1 tablet By M... Start Date: 10/11/21 Status: Ordered clopidogrel 75 mg oral tablet 1, tablet, By Mouth, Daily, ASA allergy Patient will need [facility] pill dispenser, # 30 tablet, Refills 11, Tot. Refills 11, Maintenance, 10/02/21 13:46:00 EDT, Route to Pharmacy Electronically, [facility], 135, cm, 09/29/21 10:30:00 EDT, He[facility]. [...] 07/19/22 17:31:00 EDT, [facility], [facility], cm, 06/04/22 14:59:00 EST, Height, 55.9, kg, 06/04/22 15:07:00 EST, Dry Weight Start Date: 07/19/22 Status: Ordered Lantus Solostar Pen 100 units/mL subcutaneous solution = 20 units, Subcutaneous Injection, Daily, daily in the morning Patient will need [facility] pill dispenser, # 10 mL, 11 Refills, Maintenance, 10/02/21 13:47:00 EDT, Solution[facility], 135,cm, 09/29/21 10:30:00 EDT, Height Start Date: 10/02/21 Stop Date: 09/27/22 Status: Ordered lisinopril 20 mg oral tablet 1, tablet, By Mouth, Daily, Patient will need [facility] pill dispenser, # 28 tablet, Refills 11, Tot. Refills 11, Maintenance, 10/02/21 13:48:00 EDT, [facility], 135, cm, 09/29/21 10:30:00 EDT, Height Start Date: 10/02/21 Status: Ordered Pen [place], 30 G x 8 mm BD [...] 0 Refills, Maintenance, 08/16/22 11:08:00 EDT, Tablet, [facility], Partial fill upon patient request if [...] Gm, 2 Refills, Maintenance, 07/19/22 13:21:00 EDT, [facility], 135, cm, 06/04/22 14:59:00 EST, Height, [...] Active Osteoarthritis Confirmed Active Osteoporosis Confirmed Active *[id number] 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 Ingis 7Read Cardiology note form 12-20-15 8-reported by patient. In 2011 had dobutamine stress test, which showed no EKG findings suggestive of ischemia. 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 Impression is fibromyalgia and OA 16-refuses [...] RN Position: [facility] PCO RN Member Role: Primary Care Nurse Name: Malgorzata Ugalde RN Position: [facility] SN RN Member Role: Primary Care Nurse Name: Tsering Casey RN Position: S RN Member Role: Primary Care Nurse Name: Ameena Albert MD Position: [facility] Primary Care Physician Member Role: PCP Address: Address: [address] [place] [address]- Name: Aliza Lemon RN Position: S RN Member Role: Primary Care Nurse Name: Tsering Johnson RN Position: S RN Member Role: Primary Care Nurse Care Team Related Persons Name: JCARLOS DOYLE Address: home [address] [facility] [address] [place] [address] Name: GRACE MADRIGAL Address: [place] [address] Name: BERENICE DELA CRUZ
--- OUTSIDE RECORDS SUMMARY | 2023-01-15 16:52 | XMS_ITS | Continuity of Care Document ---
Author Name Unknown Organization [facility] Address [address] [place] [address]- Care Team Providers Care Fine Jewelry Sales Associate Name Role Phone Bety KNIGHT, Ameena Primary Care Physician Encounter [facility] Date(s): 07/27/21 - 08/26/21 [facility] [address] [place] [id number] Allergies, Adverse Reactions, Alerts Substance Reaction Severity [...] Refills, Maintenance, 07/05/21 12:45:00 EST, [facility], [id number], Partial fill upon patient request if the prescription is for a schedule II opioid drug., 135, cm, 09/21/20 11:34:00 EDT, Height Start Date: 07/05/21 Status: Ordered clopidogrel 75 mg oral tablet 1, tablet, By Mouth, Daily, ASA allergy, # 30 tablet, Refills 11, Tot. Refills 11, Maintenance, 07/05/21 12:44:00 EST, Route to Pharmacy Electronically, [facility]/pharmacy #[id number], 135, cm, 09/21/20 11:34:00EDT, Height [...] 11 Refills, Maintenance, 07/05/21 12:45:00 EST, Solution, [facility]/pharmacy #[id number], 135, cm, 09/21/20 11:34:00 EDT, Height Start Date: 07/05/21 Stop Date: 06/30/22 Status: Ordered lisinopril 20 mg oral tablet 1, tablet, By Mouth, Daily, # 28 tablet, Refills 11, Tot. Refills 11, Maintenance, 07/05/21 12:45:00 EST, Route to Pharmacy Electronically, [facility]/pharmacy #[id number], 135, cm, 09/21/20 11:34:00 EDT, Height Start Date: 07/05/21 Status: Ordered Pen [place], 30 G x 8 mm BD Ultra [...] nfirmed) 15 Active Osteoarthritis(Confirmed) Active Osteoporosis(Confirmed) Active *[id number] Care Partn er Opal Dong(Confirmed) Active Non-compliant patient(Confirmed) Active Respiratory failure requirin g intubation(Confirmed) 2004 Active Tubular adenoma(Confirmed) 17 11/2007 Active Urinary incontinence(Confirmed) Active Venous embolism(Confirmed) 18 Active 1PFTs normal in 2010 2recurrent 3bilat [address]'s 5-Echo at [facility] on 06-21-14, 6Dr. Ingis 7Read Cardiology note form 8-24-16 8-reported by patient. In 2011 had dobutamine stress test, which showed no EKG findings suggestive of ischemia. 8-Ddoa-srebor today: 10Lt shoulder 11CT scan of the brain done on 05/14/13- unremarkable 12March 2013-the temporal artery biopsy was negative 13Evaluated by Rheumatology ([facility] and [facility]). Impression is fibromyalgia and OA 14-refuses CPAP 15reported by patient 16-2ary to asthma exacerbation. At [facility] 17Then again on . Had poor prep so it was recommended to repeat it in 1 year with 2 day of clears and 1 day of golytely. 2 medium sized adenomatous appearing polyps were removed [id number] Social History Social History Type Response Smoking Status Former smoker; Other : 2ppd x 5y; Stopped at age: 34; entered on: 09/11/17 Sex
--- OUTSIDE RECORDS SUMMARY | 2023-01-15 16:52 | XMS_ITS | Continuity of Care Document ---
Author Name Unknown Organization [facility] Address [address] [place] [address]- Care Team Providers Care Safety Instructor Name Role Phone Bety KNIGHT, Ameena Primary Care Physician ( [phone] Encounter [facility] [place] Date(s): 06/27/22 - 07/27/22 [facility] [address]- [place] Allergies, Adverse Reactions, Alerts Substance Reaction [...] tablet, 11 Refills, Maintenance, 10/11/21 10:03:00 EDT, [facility], Partial fill upon patient request if the prescription is for a schedule II opioid drug., 1 tablet By M... Start Date: 10/11/21 Status: Ordered clopidogrel 75 mg oral tablet 1, tablet, By Mouth, Daily, ASA allergy Patient will need [facility] pill dispenser, # 30 tablet, Refills 11, Tot. Refills 11, Maintenance, 10/02/21 13:46:00 EDT, Route to Pharmacy Electronically, [facility], 135, cm, 09/29/21 10:30:00 EDT, [...] 07/19/22 17:31:00 EDT, Route to Pharmacy Electronically, [facility], 135, cm, 06/04/22 14:59:00 EST, Height, 55.9, kg, 06/04/22 15:07:00 EST, Dry Weight Start Date: 07/19/22 Status: Ordered Lantus Solostar Pen 100 units/mL subcutaneous solution = 20 units, Subcutaneous Injection, Daily, daily in the morning Patient will need [facility] pill dispenser, # 10 mL, 11 Refills, Maintenance, 10/02/21 13:47:00 EDT, Solution, [facility], 135,cm, 09/29/21 10:30:00 EDT, Height Start Date: 10/02/21 Stop Date: 09/27/22 Status: Ordered lisinopril 20 mg oral tablet 1, tablet, By Mouth, Daily, Patient will need [facility] pill dispenser, # 28 tablet, Refills 11, Tot. Refills 11, Maintenance, 10/02/21 13:48:00 EDT, Route to Pharmacy Electronically, [facility], 135, cm, 09/29/21 10:30:00 EDT, Height Start Date: 10/02/21 Status: Ordered Pen [place], 30 G x 8 mm BD Ultra [...] Gm, 2 Refills, Maintenance, 07/19/22 13:21:00 EDT, [facility], 135, cm, 06/04/22 14:59:00 [...] Active Osteoarthritis Confirmed Active Osteoporosis Confirmed Active *[id number] Brand Sales Manager Opal Umana Confirmed Active Non-compliant patient Confirmed Active Respiratory failure requiring intubation 18 Confirmed 2004 Active Tubular adenoma 19 Confirmed 11/2007 Active Urinary incontinence Confirmed Active Venous embolism 20 Confirmed Active 1PFTs normal in 2010 2recurrent 3bilat 434[address]'s 5-Echo at [facility] on 06-21-14, 6Dr. Ingis 7Read Cardiology note form 12-20-15 8-reported by patient. In 2011 had dobutamine stress test, which showed no EKG findings suggestive of ischemia. 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 [...] RN Position: [facility] PCO RN Member Role: Primary Care Nurse Name: Malgorzata Ugalde RN Position: [facility] SN RN Member Role: Primary Care Nurse Name: Tsering Casey RN Position: S RN Member Role: Primary Care Nurse Name: Ameena Albert MD Position: [facility] Primary Care Physician Member Role: PCP Address: Address: [address] [place] [id number]- Name: Aliza Lemon RN Position: S RN Member Role: Primary Care Nurse Name: Tsering Johnson RN Position: [facility] RN Member Role: Primary Care Nurse Care Team Related Persons Name: JCARLOS DOYLE Address: home [address] [facility] [address] [place] [address] Name: GRACE MADRIGAL Address: [place] [address] Name: BERENICE DELA CRUZ
--- OUTSIDE RECORDS SUMMARY | 2023-01-15 16:52 | XMS_ITS | Continuity of Care Document ---
Author Name Unknown Organization [facility] Address [address] [place] [address]- Care Team Providers Care Oracle Brm Developer Name Role Phone Bety KNIGHT, Ameena Primary Care Physician Encounter [facility] Date(s): 07/22/22 - 07/29/22 [facility] [address] [place] [address]- Attending Physician: Alonzo BERRY, Ronel Schmitz Allergies, [...] mg, By Mouth, Daily, Patient will need [employer] pill dispenser, # 30 tablet, 11 Refills, Maintenance, 10/02/21 13:46:00 EDT, Tablet, [facility], Partial fill upon patient request if the prescription is for a schedule II opioid d... Start Date: 10/02/21 Status: Ordered Calcium 600 +D oral tablet 1 tablet, By Mouth, 2 times a day, calcium 600 and Vit D 400 units, # 90 tablet, 11 Refills, Maintenance, 10/11/21 10:03:00 EDT, [facility], Partial fill upon patient request if the prescription is for a schedule II opioid drug., 1 tablet By M... Start Date: 10/11/21 Status: Ordered clopidogrel 75 mg oral tablet 1, tablet, By Mouth, Daily, ASA allergy Patient will need [employer] pill dispenser, # 30 tablet, Refills 11, Tot. Refills 11, Maintenance, 10/02/21 13:46:00 EDT, Route to Pharmacy Electronically, [facility], 135, cm, 09/29/21 10:30:00 EDT, He... [...] 07/19/22 17:31:00 EDT, Route to Pharmacy Electronically, [facility], 135, cm, 06/04/22 14:59:00 EST, Height, 55.9, kg, 06/04/22 15:07:00 EST, Dry Weight Start Date: 07/19/22 Status: Ordered Lantus Solostar Pen 100 units/mL subcutaneous solution = 20 units, Subcutaneous Injection, Daily, daily in the morning Patient will need [facility] [employer] pill dispenser, # 10 mL, 11 Refills, Maintenance, 10/02/21 13:47:00 EDT, Solution, [facility], 135,cm, 09/29/21 10:30:00 EDT, Height Start Date: 10/02/21 Stop Date: 09/27/22 Status: Ordered lisinopril 20 mg oral tablet 1, tablet, By Mouth, Daily, Patient will need [facility] pill dispenser, # 28 tablet, Refills 11, Tot. Refills 11, Maintenance, 10/02/21 13:48:00 EDT, Route to Pharmacy Electronically, [facility], 135, cm, 09/29/21 10:30:00 EDT, Height Start Date: 10/02/21 Status: Ordered Pen [place], 30 G x 8 mm BD Ultra [...] Gm, 2 Refills, Maintenance, 07/19/22 13:21:00 EDT, [facility], 135, cm, 06/04/22 14:59:00 EST, Height, [...] Active Osteoarthritis Confirmed Active Osteoporosis Confirmed Active *[id number] Client Technical Professional Opal Umana Confirmed Active Non-compliant patient Confirmed Active Respiratory failure requiring intubation 18 Confirmed 2004 Active Tubular adenoma 19 Confirmed 11/2007 Active Urinary incontinence Confirmed Active Venous embolism 20 Confirmed Active 1PFTs normal in 2010 2recurrent 3bilat 86385's 5-Echo at [facility] on 06-21-14, 6Dr. Ingis 7Read Cardiology note form 12-20-15 8-reported by patient. In 2011 had dobutamine stress test, which showed no EKG findings suggestive of ischemia. 9-Minimental today: 16-Ytfa-btoxlr today: 11Lt shoulder 12-admission in 2017 for Left sided weakness and associated headache, ruled out from CVA, likely Complex Migraine 13CT scan of the brain done on 05/14/13- unremarkable 14March 2013-the temporal artery biopsy was negative 15Evaluated by Rheumatology ([facility] and [facility] Impression is fibromyalgia and OA 16-refuses CPAP 17reported by patient 18-2ary to asthma exacerbation. At [facility] 19Then again on . Had poor prep [...] Team Personnel Name: Gavi Arthur RN Position: [facility] PCO RN Member Role: Primary Care Nurse Name: Malgorzata Ugalde RN Position: [facility] SN RN Member Role: Primary Care Nurse Name: Tsering Casey RN Position: [facility] RN Member Role: Primary Care Nurse Name: Ameena Albert MD Position: [facility] Primary Care Physician Member Role: PCP Address: Address: [address] [place] [id number]- Name: Aliza Lemon RN Position: [facility] RN Member Role: Primary Care Nurse Name: Tsering Johnson RN Position: [facility] RN Member Role: Primary Care Nurse Care Team Related Persons Name: JCARLOS DOYLE Address: home [address] [facility] [address] [place] [address] Name: GRACE MADRIGAL Address: [place] [address] Name: BERENICE DELA CRUZ
--- OUTSIDE RECORDS SUMMARY | 2023-01-15 16:52 | XMS_ITS | Continuity of Care Document ---
Author Name Unknown Organization [facility] Address Unknown Care Team Providers Care Medical Historian Name Role Phone Bety KNIGHT, Ameena Primary Care Physician [place] [facility]26[place]21 - 07/26/21 [facility] Allergies, Adverse Reactions, Alerts Substance [...] Refills, Maintenance, 07/05/21 12:45:00 EST, Tablet, [id number], Partial fill upon patient request if the prescription is for a schedule II opioid drug., 135, cm, 09/21/20 11:34:00 EDT, Height Start Date: 07/05/21 Status: Ordered clopidogrel 75 mg oral tablet 1, tablet, By Mouth, Daily, ASA allergy, # 30 tablet, Refills 11, Tot. Refills 11, Maintenance, 07/05/21 12:44:00 EST, Route to Pharmacy Electronically, [id number], 135, cm, 09/21/20 11:34:00EDT, Height [...] 11 Refills, Maintenance, 07/05/21 12:45:00 EST, Solution, [id number], 135, cm, 09/21/20 11:34:00 EDT, Height Start Date: 07/05/21 Stop Date: 06/30/22 Status: Ordered lisinopril 20 mg oral tablet 1, tablet, By Mouth, Daily, # 28 tablet, Refills 11, Tot. Refills 11, Maintenance, 07/05/21 12:45:00 EST, Route to Pharmacy Electronically, [id number], 135, cm, 09/21/20 11:34:00 EDT, Height Start Date: 07/05/21 Status: Ordered Pen [place], 30 G x 8 mm BD Ultra [...] nfirmed) 15 Active Osteoarthritis(Confirmed) Active Osteoporosis(Confirmed) Active *[id number] Care Partn er Opal Umana(Confirmed) Active Non-compliant patient(Confirmed) Active Respiratory failure requirin g intubation(Confirmed) 2004 Active Tubular adenoma(Confirmed) 17 11/2007 Active Urinary incontinence(Confirmed) Active Venous embolism(Confirmed) 18 Active 1PFTs normal in 2010 2recurrent 3bilat 72830's 5-Echo at [facility] on 06-21-14, 6Dr. Ingis 7Read Cardiology note form 12-20-15 8-reported by patient. In 2011 had dobutamine stress test, which showed no EKG findings suggestive of ischemia. 1-Nddh-kbwvqe today: 10Lt shoulder 11CT scan of the brain done on 05/14/13- unremarkable 12Junch 2013-the temporal artery biopsy was negative 13Evaluated by Rheumatology ([facility] and [facility]). Impression is fibromyalgia and OA 14-refuses CPAP 15reported by patient 16-2ary to asthma exacerbation. At [facility] 17Then again on . Had poor prep so it was recommended to repeat it in 1 year with 2 day of clears and 1 day of golytely. 2 medium sized adenomatous appearing polyps were removed [id number] Social History Social History Type Response Smoking Status Former smoker; Other : 2ppd x 5y; Stopped at age: 34; entered on: 09/11/17 Sex
--- OUTSIDE RECORDS SUMMARY | 2023-01-15 16:52 | XMS_ITS | Continuity of Care Document ---
Author Name Unknown Organization [facility] Address Unknown Care Team Providers Care Cardiac Cath Technician Name Role Phone Bety KNIGHT, Ameena Primary Care Physician [place] [facility] [place] 10/11/21 [facility] Allergies, Adverse Reactions, Alerts Substance Reaction Severity [...] mg, By Mouth, Daily, Patient will need [employer] pill dispenser, # 30 tablet, 11 Refills, Maintenance, 10/02/21 13:46:00 EDT, Tablet, [facility], Partial fill upon patient request if the prescription is for a schedule II opioid d... Start Date: 10/02/21 Status: Ordered Calcium 600 +D oral tablet 1 tablet, By Mouth, 2 times a day, calcium 600 and Vit D 400 units, # 90 tablet, 11 Refills, Maintenance, 10/11/21 10:03:00 EDT, [facility], Partial fill upon patient request if the prescription is for a schedule II opioid drug., 1 tablet By M... Start Date: 10/11/21 Status: Ordered clopidogrel 75 mg oral tablet 1, tablet, By Mouth, Daily, ASA allergy Patient will need [facility] pill dispenser, # 30 tablet, Refills 11, Tot. Refills 11, Maintenance, 10/02/21 13:46:00 EDT, Route to Pharmacy Electronically, [facility], 135, cm, 09/29/21 10:30:00 EDT, He... [...] 10/09/21 20:56:00 EDT, Route to Pharmacy Electronically, [facility], Partial fill upon patient request if the pr... Start Date: 10/09/21 Stop Date: 11/08/21 Status: Ordered Lantus Solostar Pen 100 units/mL subcutaneous solution = 20 units, Subcutaneous Injection, Daily, daily in the morning Patient will need [facility] pill dispenser, # 10 mL, 11 Refills, Maintenance, 10/02/21 13:47:00 EDT, Solution, [facility], 135,cm, 09/29/21 10:30:00 EDT, Height Start Date: 10/02/21 Stop Date: 09/27/22 Status: Ordered lisinopril 20 mg oral tablet 1, tablet, By Mouth, Daily, Patient will need [facility] pill dispenser, # 28 tablet, Refills 11, Tot. Refills 11, Maintenance, 10/02/21 13:48:00 EDT, Route to Pharmacy Electronically, [facility], 135, cm, 09/29/21 10:30:00 EDT, Height Start Date: 10/02/21 Status: Ordered Pen [place], 30 G x 8 mm BD Ultra [...] nfirmed) 16 Active Osteoarthritis(Confirmed) Active Osteoporosis(Confirmed) Active *[id number] Care Partn er Opal Umana(Confirmed) Active Non-compliant patient(Confirmed) Active Respiratory failure requirin g intubation(Confirmed) 17 2004 Active Tubular adenoma(Confirmed) 18 11/2007 Active Urinary incontinence(Confirmed) Active Venous embolism(Confirmed) 19 Active 1PFTs normal in 2010 2recurrent 3bilat 03061's 5-Echo at [facility] on 06-21-14, 6Dr. Ingis 7Read Cardiology note form 12-19- 8-reported by patient. In 2011 had dobutamine stress test, which showed no EKG findings suggestive of ischemia. 9-Minimental today: 14-Hjaq-dibpdg today: 11Lt shoulder 12CT scan of the brain done on 05/14/13- unremarkable 13March 2013-the temporal artery biopsy was negative 14Evaluated by [facility]umatology ([facility]). Impression is fibromyalgia and OA 15-refuses CPAP 16reported by patient 17-2ary to asthma exacerbation. At [facility] 18Then again on . Had poor prep so it was recommended to repeat it in 1 year with 2 day of clears and 1 day of golytely. 2 medium sized adenomatous appearing polyps were removed [id number] Social History Social History Type Response Smoking Status Former smoker; Other : 2ppd x 5y; Stopped at age: 34; entered on: 09/11/17 Sex
--- OUTSIDE RECORDS SUMMARY | 2023-01-15 16:52 | XMS_ITS | Continuity of Care Document ---
Author Name Unknown Organization [facility] Address Unknown Care Team Providers Care Grooming Assistant Name Role Phone Bety KNIGHT, Ameena Primary Care Physician ( [phone] Encounter [facility] Date(s): 09/20/21 - 10/20/21 [facility] Allergies, Adverse Reactions, Alerts Substance Reaction [...] mg, By Mouth, Daily, Patient will need [employer] pill dispenser, # 30 tablet, 11 Refills, Maintenance, 10/02/21 13:46:00 EDT, Tablet, [facility], Partial fill upon patient request if the prescription is for a schedule II opioid d... Start Date: 10/02/21 Status: Ordered Calcium 600 +D oral tablet 1 tablet, By Mouth, 2 times a day, calcium 600 and Vit D 400 units, # 90 tablet, 11 Refills, Maintenance, 10/11/21 10:03:00 EDT, [facility], Partial fill upon patient request if the prescription is for a schedule II opioid drug., 1 tablet By M... Start Date: 10/11/21 Status: Ordered clopidogrel 75 mg oral tablet 1, tablet, By Mouth, Daily, ASA allergy Patient will need [employer] pill dispenser, # 30 tablet, Refills 11, Tot. Refills 11, Maintenance, 10/02/21 13:46:00 EDT, Route to Pharmacy Electronically, [facility], 135, cm, 09/29/21 10:30:00 EDT, He... [...] 10/09/21 20:56:00 EDT, Route to Pharmacy Electronically, [facility], Partial fill upon patient request if the pr... Start Date: 10/09/21 Stop Date: 11/08/21 Status: Ordered Lantus Solostar Pen 100 units/mL subcutaneous solution = 20 units, Subcutaneous Injection, Daily, daily in the morning Patient will need [employer] pill dispenser, # 10 mL, 11 Refills, Maintenance, 10/02/21 13:47:00 EDT, Solution, [facility], 135,cm, 09/29/21 10:30:00 EDT, Height Start Date: 10/02/21 Stop Date: 09/27/22 Status: Ordered lisinopril 20 mg oral tablet 1, tablet, By Mouth, Daily, Patient will need [employer] pill dispenser, # 28 tablet, Refills 11, Tot. Refills 11, Maintenance, 10/02/21 13:48:00 EDT, Route to Pharmacy Electronically, [facility], 135, cm, 09/29/21 10:30:00 EDT, Height Start Date: 10/02/21 Status: Ordered Pen [place], 30 G x 8 mm BD Ultra [...] nfirmed) 17 Active Osteoarthritis(Confirmed) Active Osteoporosis(Confirmed) Active *[id number] Care Partn er Opal Umana(Confirmed) Active Non-compliant patient(Confirmed) Active Respiratory failure requirin g intubation(Confirmed) 2004 Active Tubular adenoma(Confirmed) 19 11/2007 Active Urinary incontinence(Confirmed) Active Venous embolism(Confirmed) 20 Active 1PFTs normal in 2010 2recurrent 3bilat 8[address]00's 5-Echo at [facility] on 06-21-14, 6Dr. Ingis 7Read Cardiology note form 24-16 8-reported by patient. In 2011 had dobutamine stress test, which showed no EKG findings suggestive of ischemia. 9-Minimental today: 59-Ubev-pembgj today: 11Lt shoulder 12-admission in 2017 for Left sided weakness and associated headache, ruled out from CVA, likely Complex Migraine 13CT scan of the brain done on 05/14/13- unremarkable 14March 2013-the temporal artery biopsy was negative 15Evaluated by Rheumatology ([facility] and [facility]). Impression is fibromyalgia and OA 16-refuses CPAP 17reported by patient 18-2ary to asthma exacerbation. At [facility] 19Then again on . Had poor [...]
--- OUTSIDE RECORDS SUMMARY | 2023-01-15 16:53 | XMS_ITS | Continuity of Care Document ---
Author Name Unknown Organization [facility] Address [address] [place] [address]- Care Team Providers Care Hand Lacer Name Role Phone Bety KNIGHT, Ameena Primary Care Physician ( [phone] Encounter [facility] Date(s): 06/03/22 - 07/03/22 [facility] [address]- [place] Allergies, Adverse Reactions, Alerts Substance Reaction [...] mg, By Mouth, Daily, Patient will need [employer] pill dispenser, # 30 tablet, 11 Refills, Maintenance, 10/02/21 13:46:00 EDT, Tablet, [facility], Partial fill upon patient request if the prescription is for a schedule II opioid d... Start Date: 10/02/21 Status: Ordered Calcium 600 +D oral tablet 1 tablet, By Mouth, 2 times a day, calcium 600 and Vit D 400 units, # 90 tablet, 11 Refills, Maintenance, 10/11/21 10:03:00 EDT, [email or web address], Partial fill upon patient request if the prescription is for a schedule II opioid drug., 1 tablet By M... Start Date: 10/11/21 Status: Ordered clopidogrel 75 mg oral tablet 1, tablet, By Mouth, Daily, ASA allergy Patient will need [email or web address] pill dispenser, # 30 tablet, Refills 11, Tot. Refills 11, Maintenance, 10/02/21 13:46:00 EDT, Route to Pharmacy Electronically, [email or web address], 135, cm, 09/29/21 10:30:00 EDT, He... [...] 05/09/22 18:59:00 EST, Route to Pharmacy Electronically, [email or web address], 135, cm, 10/11/21 9:20:00 EDT, Height Start Date: 05/09/22 Status: Ordered Lantus Solostar Pen 100 units/mL subcutaneous solution = 20 units, Subcutaneous Injection, Daily, daily in the morning Patient will need [email or web address] pill dispenser, # 10 mL, 11 Refills, Maintenance, 10/02/21 13:47:00 EDT, Solution, [email or web address], 135,cm, 09/29/21 10:30:00 EDT, Height Start Date: 10/02/21 Stop Date: 09/27/22 Status: Ordered lisinopril 20 mg oral tablet 1, tablet, By Mouth, Daily, Patient will need [email or web address] pill dispenser, # 28 tablet, Refills 11, Tot. Refills 11, Maintenance, 10/02/21 13:48:00 EDT, Route to Pharmacy Electronically, [email or web address], 135, cm, 09/29/21 10:30:00 EDT, Height Start Date: 10/02/21 Status: Ordered Pen [place], 30 G x 8 mm BD Ultra [...] Active Osteoarthritis Confirmed Active Osteoporosis Confirmed Active *[id number] Track Template Maker Opal Umana Confirmed Active Non-compliant patient Confirmed Active Respiratory failure requiring intubation 18 Confirmed 2004 Active Tubular adenoma 19 Confirmed 11/2007 Active Urinary incontinence Confirmed Active Venous embolism 20 Confirmed Active 1PFTs normal in 2010 2recurrent 3bilat 76191's 5-Echo at [facility] on 06-21-14, 6Dr. Ingis 7Read Cardiology note form 12-20-15 8-reported by patient. In 2011 had dobutamine stress test, which showed no EKG findings suggestive of ischemia. 9-Minimental today: 71-Npnx-guvdkp today: 11Lt shoulder 12-admission in 2017 for Left sided weakness and associated headache, ruled out from CVA, likely Complex Migraine 13CT scan of the brain done on 05/14/13- unremarkable 14March 2013-the temporal artery biopsy was negative 15Evaluated by Rheumatology ([facility] and [address]). Impression is fibromyalgia and OA 16-refuses CPAP 17reported by patient 18-2ary to asthma exacerbation. At [facility] 19Then again on . Had poor [...] Care Physician Member Role: PCP Address: Address: [address] [place] [address]- Name: Aliza Lemon RN Position: S RN Member Role: Primary Care Nurse Name: Tsering Johnson RN Position: S RN Member Role: Primary Care Nurse Care Team Related Persons Name: JCARLOS DOYLE Address: home [address] [facility] [address] [place] [address] Name: GRACE MADRIGAL Address: [place] [address] Name: BERENICE DELA CRUZ
--- OUTSIDE RECORDS SUMMARY | 2023-01-15 16:53 | XMS_ITS | Continuity of Care Document ---
Author Name Unknown Organization [facility] Address [address] [place] [address]- Care Team Providers Care Tile Setter Name Role Phone Bety KNIGHT, Ameena Primary Care Physician [place] [facility] [place] - 02/01/22 [facility] [address]- [place] Allergies, Adverse Reactions, Alerts Substance Reaction Severity Status acetaminophen Active penicillin ITCHING, RASH Active tetanus toxoid SWELLING Active aspirin rash Active Motrin Active Benadryl RASH, VOMITING Active Egg Allergy TONGUE SWELLS egg Unknown Active Latex SWELLING Active Nuts RASH Active Losartan Potassium 1 spitting christophe blood [...] 11/14/2214:05:00 EDT, Aerosol, Route to Pharmacy Electronically, [id number]_[id number], [facility], 135,cm, 10/11/21 9:20:00 EDT, Height Start Date: 11/14/21 Status: Ordered atorvastatin 20 mg oral tablet 1 tablet = 20 mg, By Mouth, Daily, Patient will need [facility] pill dispenser, # 30 tablet, 11 Refills, Maintenance, 10/02/21 13:46:00 EDT, Tablet, [facility], Partial fill upon patient request if the prescription is for a schedule II opioid d... Start Date: 10/02/21 Status: Ordered Calcium 600 +D oral tablet 1 tablet, By Mouth, 2 times a day, calcium 600 and Vit D 400 units, # 90 tablet, 11 Refills, Maintenance, 10/11/21 10:03:00 EDT, [facility], Partial fill upon patient request if the prescription is for a schedule II opioid drug., 1 tablet By M... Start Date: 10/11/21 Status: Ordered clopidogrel 75 mg oral tablet 1, tablet, By Mouth, Daily, ASA allergy Patient will need [facility] pill dispenser, # 30 tablet, Refills 11, Tot. Refills 11, Maintenance, 10/02/21 13:46:00 EDT, Route to Pharmacy Electronically, [facility], 135, cm, 09/29/21 10:30:00 EDT, He... [...] 01/24/22 16:49:00 EDT, Route to Pharmacy Electronically, [facility], 135, cm, 10/11/21 9:20:00 EDT, Height Start Date: 01/24/22 Status: Ordered Lantus Solostar Pen 100 units/mL subcutaneous solution = 20 units, Subcutaneous Injection, Daily, daily in the morning Patient will need [facility] pill dispenser, # 10 mL, 11 Refills, Maintenance, 10/02/21 13:47:00 EDT, Solution, [facility], 135,cm, 09/29/21 10:30:00 EDT, Height Start Date: 10/02/21 Stop Date: 09/27/22 Status: Ordered lisinopril 20 mg oral tablet 1, tablet, By Mouth, Daily, Patient will need [facility] pill dispenser, # 28 tablet, Refills 11, Tot. Refills 11, Maintenance, 10/02/21 13:48:00 EDT, Route to Pharmacy Electronically, [facility], 135, cm, 09/29/21 10:30:00 EDT, Height Start Date: 10/02/21 Status: Ordered Pen [place], 30 G x 8 mm BD Ultra [...] Active Osteoarthritis Confirmed Active Osteoporosis Confirmed Active *[id number] Rehabilitation Clerk Opal Umana Confirmed Active Non-compliant patient Confirmed Active Respiratory failure requiring intubation 18 Confirmed 2004 Active Tubular adenoma 19 Confirmed 11/2007 Active Urinary incontinence Confirmed Active Venous embolism 20 Confirmed Active 1PFTs normal in 2010 2recurrent 3bilat 90153's 5-Echo at [facility] on 06-21-14, 6Dr. Ingis 7Read Cardiology note form 12-20-15 8-reported by patient. In 2011 had dobutamine stress test, which showed no EKG findings suggestive of ischemia. 9-Minimental today: 01-Zcxs-wepvbt today: 11Lt shoulder 12-admission in 2017 for Left sided weakness and associated headache, ruled out from CVA, likely Complex Migraine 13CT scan of the brain done on 05/14/13- unremarkable 14March 2013-the temporal artery biopsy was negative 15Evaluated by Rheumatology ([facility] and [facility]). Impression is fibromyalgia and OA 16-refuses CPAP 17reported by patient 18-2ary to asthma exacerbation. At [facility] 19Then again on . Had poor prep [...] Personnel Name: Ameena Albert MD Address: Address: [address] [place] [address]-
--- OUTSIDE RECORDS SUMMARY | 2023-01-15 16:53 | XMS_ITS | Continuity of Care Document ---
Author Name Unknown Organization [facility] Address Unknown Care Team Providers Care Pantograph Machine Set Up Operator Name Role Phone Bety KNIGHT, Ameena Primary Care Physician Encounter [facility] [place] Date(s): 10/30/21 - 11/29/21 [facility] Allergies, Adverse Reactions, Alerts Substance [...] 11/14/2214:05:00 EDT, Aerosol, Route to Pharmacy Electronically, [id number], [facility], 135,cm, 10/11/21 9:20:00 EDT, Height Start Date: 11/14/21 Status: Ordered atorvastatin 20 mg oral tablet 1 tablet = 20 mg, By Mouth, Daily, Patient will need Medminder pill dispenser, # 30 tablet, 11 Refills, Maintenance, 10/02/21 13:46:00 EDT, Tablet, [facility], Partial fill upon patient request if the prescription is for a schedule II opioid d... Start Date: 10/02/21 Status: Ordered Calcium 600 +D oral tablet 1 tablet, By Mouth, 2 times a day, calcium 600 and Vit D 400 units, # 90 tablet, 11 Refills, Maintenance, 10/11/21 10:03:00 EDT, [facility], Partial fill upon patient request if the prescription is for a schedule II opioid drug., 1 tablet By M... Start Date: 10/11/21 Status: Ordered clopidogrel 75 mg oral tablet 1, tablet, By Mouth, Daily, ASA allergy Patient will need [facility] pill dispenser, # 30 tablet, Refills 11, Tot. Refills 11, Maintenance, 10/02/21 13:46:00 EDT, Route to Pharmacy Electronically, [facility], 135, cm, 09/29/21 10:30:00 EDT, [...] 10/31/21 15:01:00 EDT, Route to Pharmacy Electronically, [facility], Partial fill upon patient request if the pr... Start Date: 10/31/21 Stop Date: 12/30/21 Status: Ordered Lantus Solostar Pen 100 units/mL subcutaneous solution = 20 units, Subcutaneous Injection, Daily, daily in the morning Patient will need [facility] pill dispenser, # 10 mL, 11 Refills, Maintenance, 10/02/21 13:47:00 EDT, Solution, [facility], 135,cm, 09/29/21 10:30:00 EDT, Height Start Date: 10/02/21 Stop Date: 09/27/22 Status: Ordered lisinopril 20 mg oral tablet 1, tablet, By Mouth, Daily, Patient will need [facility] pill dispenser, # 28 tablet, Refills 11, Tot. Refills 11, Maintenance, 10/02/21 13:48:00 EDT, Route to Pharmacy Electronically, [facility], 135, cm, 09/29/21 10:30:00 EDT, Height Start Date: 10/02/21 Status: Ordered Pen [place], 30 G x 8 mm BD Ultra [...] nfirmed) 17 Active Osteoarthritis(Confirmed) Active Osteoporosis(Confirmed) Active *[id number] Care Partn er Opal Umana(Confirmed) Active Non-compliant patient(Confirmed) Active Respiratory failure requirin g intubation(Confirmed) 2004 Active Tubular adenoma(Confirmed) 19 11/2007 Active Urinary incontinence(Confirmed) Active [facility]Confirmed) [facility] 2recurrent 3bilat 28154's 5-Echo at [facility] on 06-21-14, 6Dr. Ingis 7Read Cardiology note form 12-20-15 8-reported by patient. In 2011 had dobutamine stress test, which showed no EKG findings suggestive of ischemia. 9-Minimental today: 48-Cmzf-ohruyj today: 11Lt shoulder 12-admission in 2016 for Left sided weakness and associated headache, ruled out from CVA, likely Complex Migraine 13CT scan of the brain done on 05/14/13- unremarkable 14March 2013-the temporal artery biopsy was negative 15Evaluated by Rheumatology ([facility]). Impression is fibromyalgia and OA 16-refuses CPAP 17reported by patient 18-2ary to asthma exacerbation. At [facility] 19Then again on . Had poor [...]
--- OUTSIDE RECORDS SUMMARY | 2023-01-15 16:53 | XMS_ITS | Continuity of Care Document ---
Author Name Unknown Organization [facility] Address Unknown Care Team Providers Care Access Analyst Name Role Phone Bety KNIGHT, Ameena Primary Care Physician Encounter [facility] [place] Date(s): 09/12/21 - 10/12/21 [facility] Allergies, Adverse Reactions, Alerts Substance [...] mg, By Mouth, Daily, Patient will need MedMeldium pill dispenser, # 30 tablet, 11 Refills, Maintenance, 10/02/21 13:46:00 EDT, Tablet, [facility], Partial fill upon patient request if the prescription is for a schedule II opioid d... Start Date: 10/02/21 Status: Ordered Calcium 600 +D oral tablet 1 tablet, By Mouth, 2 times a day, calcium 600 and Vit D 400 units, # 90 tablet, 11 Refills, Maintenance, 10/11/21 10:03:00 EDT, [facility], Partial fill upon patient request if the prescription is for a schedule II opioid drug., 1 tablet By M... Start Date: 10/11/21 Status: Ordered clopidogrel 75 mg oral tablet 1, tablet, By Mouth, Daily, ASA allergy Patient will need [facility] pill dispenser, # 30 tablet, Refills 11, Tot. Refills 11, Maintenance, 10/02/21 13:46:00 EDT, Route to Pharmacy Electronically, [facility], 135, cm, 09/29/21 10:30:00 EDT, He... [...] 10/09/21 20:56:00 EDT, Route to Pharmacy Electronically, [facility], Partial fill upon patient request if the pr... Start Date: 10/09/21 Stop Date: 11/08/21 Status: Ordered Lantus Solostar Pen 100 units/mL subcutaneous solution = 20 units, Subcutaneous Injection, Daily, daily in the morning Patient will need [facility] pill dispenser, # 10 mL, 11 Refills, Maintenance, 10/02/21 13:47:00 EDT, Solution, [facility], 135,cm, 09/29/21 10:30:00 EDT, Height Start Date: 10/02/21 Stop Date: 09/27/22 Status: Ordered lisinopril 20 mg oral tablet 1, tablet, By Mouth, Daily, Patient will need [facility] pill dispenser, # 28 tablet, Refills 11, Tot. Refills 11, Maintenance, 10/02/21 13:48:00 EDT, Route to Pharmacy Electronically, [facility], 135, cm, 09/29/21 10:30:00 EDT, Height Start Date: 10/02/21 Status: Ordered Pen [place], 30 G x 8 mm BD Ultra [...] nfirmed) 16 Active Osteoarthritis(Confirmed) Active Osteoporosis(Confirmed) Active *[id number] Care Partn er Opal Umana(Confirmed) Active Non-compliant patient(Confirmed) Active Respiratory failure requirin g intubation(Confirmed) 17 2004 Active Tubular adenoma(Confirmed) 18 11/2007 Active Urinary incontinence(Confirmed) Active Venous embolism(Confirmed) 19 Active 1PFTs normal in 2010 2recurrent 3bilat 75859's 5-Echo at [facility] on 06-21-14, 6Dr. Ingis 7Read Cardiology note form 24-16 8-reported by patient. In 2011 had dobutamine stress test, which showed no EKG findings suggestive of ischemia. 9-Minimental today: 76-Rlom-yaxtyd today: 11Lt shoulder 12CT scan of the brain done on 05/14/13- unremarkable 13March 2013-the temporal artery biopsy was negative 14Evaluated by Rheumatology ([facility]). Impression is fibromyalgia and OA 15-refuses CPAP 16reported by patient 17-2ary to asthma exacerbation. At [facility] 18Then again on . Had poor prep so it was recommended to repeat it in 1 year with 2 day of clears and 1 day of golytely. 2 medium sized adenomatous appearing polyps were removed [id number] Social History Social History Type Response Smoking Status Former smoker; Other : 2ppd x 5y; Stopped at age: 34; entered on: 09/11/17 Sex
--- OUTSIDE RECORDS SUMMARY | 2023-01-15 16:53 | XMS_ITS | Continuity of Care Document ---
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 Start Date: 12/10/22 Status: Ordered clopidogrel 75 mg oral tablet 1, tablet, By Mouth, Daily, Hx of CVA and ASA allergy, # 90 tablet, Refills 3, Tot. Refills 3, Maintenance, 12/10/22 16:55:00 EDT, Route to Pharmacy Electronically, [facility]acy #[id number], please note that diagnosis was changed and [...] 12/10/22 16:08:00 EDT, Route to Pharmacy Electronically, [facility] #[id number], 135, cm, 12/09/22 11:51:00 EDT, Height, 55.9, kg, 06/04/22 15:07:00 EST, Dry Weight Start Date: 12/10/22 Stop Date: 12/05/23 Status: Ordered Lantus Solostar Pen 100 units/mL subcutaneous solution = 20 units, Subcutaneous Injection, Daily, daily in the morning, # 15 mL, 2 Refills, Maintenance, 12/10/22 16:12:00 EDT, Solution, [facility]/pharmacy #[id number], 135, cm, 12/09/22 11:51:00 EDT, Height, 55.9, kg, 06/04/22 15:07:00 EST, Dry Weight Start Date: 12/10/22 Stop Date: 09/06/23 Status: Ordered lisinopril 20 mg oral tablet 1, tablet, By Mouth, Daily, # 90 tablet, Refills 3, Tot. Refills 3, Maintenance, 12/10/22 16:06:00 EDT, Route to Pharmacy Electronically, [facility]/pharmacy #[id number], 135, cm, 12/09/22 11:51:00 EDT, Height, 55.9, kg, 06/04/22 15:07:00 EST, Dry Weight Start Date: 12/10/22 Stop Date: 12/05/23 Status: Ordered Pen [place], 30 G x 8 mm BD Ultra [...] tablet, 3 Refills, Maintenance, 12/10/22 16:10:00 EDT, [facility]/pharmacy #[id number], Partial fill upon patient [...] Replace Required Details, Route to Pharmacy Electronically, [facility]/pharmacy #[id number], Partial fill upon... 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 10-Minimental today: 59-Vqhy-dvowkb today: 12Lt shoulder 13-admission in 2017 for Left sided weakness and associated headache, ruled out from CVA, likely Complex Migraine 14CT scan of the brain done on 05/14/13- unremarkable 15March 2013-the temporal artery biopsy was negative 16Evaluated by Rheumatology ([facility]). Impression is fibromyalgia and OA 17-refuses CPAP 18-2ary to asthma exacerbation. At [facility] 19Then again on . Had poor [...] Team Personnel Name: Gavi Arthur RN Position: [facility] AMB Nurse Member Role: Primary Care Nurse Name: Malgorzata Ugalde RN Position: [facility] SN RN Member Role: Primary Care Nurse Name: Tsering Casey RN Position: S RN Member Role: Primary Care Nurse Name: Ameena Albert MD Position: [facility] Physician - Primary Care Member Role: PCP Address: Address: [address] [place] [id number] Name: Aliza Lemon RN Position: [facility] RN Member Role: Primary Care Nurse Name: Tsering Johnson RN Position: [facility] RN Member Role: Primary Care Nurse Care Team Related Persons Name: JCARLOS DOYLE Address: home [address] [facility] [address] [place] [address] Name: JUAN M SILVA Name: GRACE MADRIGAL Address: [place] [address] Name: BERENICE DELA CRUZ
[2023-01-15 18:00] VITALS: BP 152/70; PULSE 84; RESP 18; TEMP 36.3; O2SAT 97
--- NOTE | 2023-01-15 18:55 | PC.ADMIT ---
Pt. Presented to unit door and presented with CV using staff interpreter. Pt. unable to sign CV and returned to ED where signed 12B. Pt. arrived on unit at 17:45 accompanied by 2 rope cutter. Pt sleeping and did not rouse for changeover and skin check. Pt. with intact bandage RUE. No other skin issues noted. Pt. with HCP who will be updated by oncoming shift.
[2023-01-16 06:00] VITALS: BP 166/90; PULSE 76; RESP 16; TEMP 36.6; O2SAT 95
[2023-01-16 07:28] LABS: Glucose, Whole Blood 138 mg/dL (60-115)
[2023-01-16] MEDS: Insulin Glargine,Hum.rec.anlog 100 UNIT/ML 10 ML VIAL 15 UNIT SUBCUT (09:30)
[2023-01-16] MEDS: Docusate Sodium 100 MG CAPSULE PO (09:30)
[2023-01-16] MEDS: lisinopriL 20 MG TABLET PO (09:31)
[2023-01-16] MEDS: Clopidogrel Bisulfate 75 MG TABLET PO (09:31)
[2023-01-16] MEDS: Ondansetron ODT 4 MG TAB.RAPDIS TRANSLINGU ×3 (09:31→21:23)
[2023-01-16] MEDS: guaiFENesin LA 600 MG TAB.ER.12H PO ×2 (09:31→21:22)
[2023-01-16] MEDS: Gabapentin 100 MG CAPSULE 200 MG PO ×2 (09:31→21:23)
[2023-01-16] MEDS: Atorvastatin Calcium 20 MG TABLET PO (09:31)
[2023-01-16] MEDS: Acetaminophen 325 MG TABLET 650 MG PO (09:31)
[2023-01-16] MEDS: Sertraline HCL 50 MG TABLET PO (09:32)
--- NOTE | 2023-01-16 13:29 | HO.PM.IMCN ---
History of Present Illness Data of Consult Service Date: 01/16/23 Primary Care Provider: Unknown Physician HPI Reason for consult: Admission H&P Pt is a Gambian-speaking 72-year-old female with a PMH significant for?dementia unspecified, hx of CVA, HLD, HTN, insulin-dependent diabetes type 2, and MDD with psychotic features who is admitted to [facility] for aggressive behavior and hearing voices. Patient lives with her son who states she is becoming increasingly unmanageable at home: Has been tearing up pictures, breaking glass, hitting him in the face, and been non compliant with her medications by spitting them out. Medical consult for admission H&P. ?Pt is somnolent at time of interview but arousable verbal stimuli. Patient is alert and oriented to self only and not answering all questions appropriately. She is thus incapable providing accurate HPI. Pt is a transfer from [facility] where she was admitted from 12/17-01/15. Workup at [facility] included negative chest x-ray and CTA negative for PE but showing mild dependent atelectasis in both lungs and a possible colonic mucosal lesion at the splenic flexure versus artifact of underdistention. Suggested direct visualization with colonoscopy if one has not been done recently. Review of Systems Review of Systems: Unable to obtain due to patient's mentation PMFSH Social History Unable to assess alcohol history related to: Unable to respond Patient Tobacco Use Status: Former Tobacco user Smoked in Last 30 Days: No Patient Interested in Nicotine Replacement: No Patient Given Instructions on How to Stop Smoking: No Second Hand Smoke Exposure: No Use of substances other than those prescribed or required for medical reasons: Unable to respond Currently Displaying Signs/Symptoms of Drug Intoxication Withdrawal: No Advance Directives: No Advance Directives Information Provided: No Do you have thoughts of harming others: None Do you have a plan to hurt others: No Plan Patient : No service: No Sexual orientation: Straight/Heterosexual Meds Allergies Allergy/AdvReac Type Severity Reaction Status Date / Time aspirin Allergy Unknown Verified 01/15/23 18:02 egg Allergy Unknown Verified 01/15/23 18:02 Fish Containing Products Allergy Unknown Verified 01/15/23 18:02 ibuprofen Allergy Unknown Verified 01/15/23 18:02 Influenza Virus Vaccines Allergy Unknown Verified 01/15/23 18:02 iodine Allergy Unknown Verified 01/15/23 18:02 latex Allergy Unknown Verified 01/15/23 18:02 Penicillins Allergy Unknown Verified 01/15/23 18:02 Tetanus Vaccines and Toxoid Allergy Unknown Verified 01/15/23 18:02 tomato Allergy Unknown Verified 01/15/23 18:02 Active Medications: Current Medications Acetaminophen (Acetaminophen 325 Mg Tablet) 650 mg PO Q6H PRN PRN Reason: Headache/Pain Mild Scale (1-3) Last Admin: 01/16/23 09:31 Dose: 650 mg Al Hydroxide/Mg Hydroxide (Magnesium Hydrox/Alum Hydrox 30 Ml Oral.Susp) 30 ml PO Q6H PRN PRN Reason: Heartburn/Nausea Albuterol Sulfate (Albuterol Sulfate (0.083%) 2.5 Mg/3 Ml Vial.Neb) 2.5 mg INHALE QID PRN PRN Reason: HX of Asthma Atorvastatin Calcium (Atorvastatin Calcium 20 Mg Tablet) 20 mg PO DAILY [facility] Last Admin: 01/16/23 09:31 Dose: 20 mg Clopidogrel Bisulfate (Clopidogrel Bisulfate 75 Mg Tablet) 75 mg PO DAILY [facility] Last Admin: 01/16/23 09:31 Dose: 75 mg Docusate Sodium (Docusate Sodium 100 Mg Capsule) 100 mg PO BID [facility] Last Admin: 01/16/23 09:30 Dose: 100 mg Gabapentin (Gabapentin 100 Mg Capsule) 200 mg PO BID [facility] Last Admin: 01/16/23 09:31 Dose: 200 mg Guaifenesin (Guaifenesin La 600 Mg Tab.Er.12h) 600 mg PO BID [facility] Last Admin: 01/16/23 09:31 Dose: 600 mg Insulin Glargine (Insulin Glargine,Hum.Rec.Anlog 100 Unit/Ml 10 Ml Vial) 15 unit SUBCUT DAILY [facility] Last Admin: 01/16/23 09:30 Dose: 15 unit Lisinopril (Lisinopril 20 Mg Tablet) 20 mg PO DAILY [facility] Last Admin: 01/16/23 09:31 Dose: 20 mg Magnesium Hydroxide (Milk Of Magnesia 30 Ml Oral.Susp) 30 ml PO DAILY PRN PRN Reason: Constipation Mirtazapine (Mirtazapine 7.5 Mg Tablet) 7.5 mg PO BEDTIME [facility] Ondansetron HCl (Ondansetron Odt 4 Mg Tab.Rapdis) 4 mg TRANSLINGU QID [facility] Last Admin: 01/16/23 09:31 Dose: 4 mg Risperidone (Risperidone 0.5 Mg Tablet) 0.5 mg PO BEDTIME [facility] Risperidone (Risperidone 0.5 Mg Tablet) 0.5 mg PO BID@0800,1500 [facility] Sertraline HCl (Sertraline Hcl 50 Mg Tablet) 50 mg PO DAILY [facility] Last Admin: 01/16/23 09:32 Dose: 50 mg Trazodone HCl (Trazodone Hcl 25 Mg Halftab) 25 mg PO BEDTIME MRX1 PRN PRN Reason: Insomnia Trazodone HCl (Trazodone Hcl 50 Mg Tablet) 50 mg PO BEDTIME [facility] Home Medications Medication Instructions Recorded Confirmed Last Taken Type acetaminophen 1,000 mg PO TID 01/16/23 01/16/23 Unknown History albuterol 2.5 mg inhalation QID PRN HX of 01/16/23 01/16/23 Unknown History Asthma atorvastatin 20 mg PO DAILY 01/16/23 01/16/23 Unknown History benzocaine-menthol 1 mg PO Q1-2H PRN Pain 01/16/23 01/16/23 Unknown History clopidogrel 75 mg PO DAILY 01/16/23 01/16/23 Unknown History diphenhydramine HCl 12.5 mg PO QID PRN unknown 01/16/23 01/16/23 Unknown History docusate sodium 100 mg PO BID 01/16/23 01/16/23 Unknown History gabapentin 200 mg PO BID 01/16/23 01/16/23 Unknown History guaifenesin 600 mg PO BID 01/16/23 01/16/23 Unknown History haloperidol 2 mg PO Q4-6H PRN unknown 01/16/23 01/16/23 Unknown History heparin (porcine) 5,000 units subcut BID 01/16/23 01/16/23 Unknown History insulin glargine 15 units subcut DAILY 01/16/23 01/16/23 Unknown History lisinopril 20 mg PO DAILY 01/16/23 01/16/23 Unknown History lorazepam 1 mg PO QID PRN agitation 01/16/23 01/16/23 Unknown History mirtazapine 7.5 mg PO BEDTIME 01/16/23 01/16/23 Unknown History ondansetron HCl 4 mg tablet 4 mg PO QID 01/16/23 01/16/23 Unknown History risperidone 0.5 mg PO BEDTIME 01/16/23 01/16/23 Unknown History risperidone 0.5 mg PO BID 01/16/23 01/16/23 Unknown History sertraline 50 mg PO DAILY 01/16/23 01/16/23 Unknown History trazodone 50 mg PO BEDTIME 01/16/23 01/16/23 Unknown History Physical Exam Vital Signs and Narrative: Vital Signs: Last Vital Signs Temp 97.8 F 01/16/23 06:00 Pulse 76 01/16/23 06:00 Resp 16 01/16/23 06:00 BP 166/90 H 01/16/23 06:00 Pulse Ox 95 01/16/23 06:00 O2 Del Method Room Air 01/16/23 06:00 General: AOx1, somnolent but arousable, unable to answer all questions appropriately, unaware of her situation, no acute distress Resp: CTA bilaterally CVS: S1, S2, RRR GI: +BS, no distention, no guarding Skin: No rash Neuro: Cranial nerves II-XII grossly intact bilaterally. Motor grossly intact bilaterally Extremities: No edema Psych: Appropriate affect Results Labs Labs: Laboratory Results - last 24 hr 01/16/23 07:23 POC Glucose 138 H Assessment and Plan (1) Medical clearance for psychiatric admission: Status: Acute Plan Pt is a Gambian-speaking 72-year-old female with a PMH significant for?dementia unspecified, hx of CVA, HLD, HTN, insulin-dependent diabetes type 2, and MDD with psychotic features who is admitted to [facility] for aggressive behavior and hearing voices. Patient lives with her son who states she is becoming increasingly unmanageable at home: Has been tearing up pictures, breaking glass, hitting him in the face, and been non compliant with her medications by spitting them out. Medical consult for admission H&P. Mood disorder Plan as per Psychiatry HLD/ hx of CVA Continue statin, Plavix HTN Acceptable BP control on current therapies Continue home meds Insulin-dependent type 2 diabetes SSI, Lantus, diabetic diet Abnormal CTA findings CTA at [facility] on 01/17/2023 phone possible colonic mucosal lesion at the splenic flexure versus artifact of under distention Suggestion is for direct visualization with colonoscopy unless one has been done recently Follow-up outpatient with PCP Thank you for allowing us to participate in the care of this patient. Signing off at this time. Please let us know if there are any acute complaints or questions. Time Spent With Patient Time: Total time managing care of this patient today ____ minutes.
--- NOTE | 2023-01-16 14:18 | P.HPPS_ITS ---
HPI Date of Service: 01/16/23 Chief Complaint: Major Depressive D/o, w/ psychotic features Sources of Information: patient interviewed, chart reviewed and crisis/core team assessment reviewed [facility] Subjective Notes: Gregory Warning and Conditional Voluntary (By healthcare proxy) Healthcare Proxy: Yes Narrative: The patient is a 72-year-old, descent female, mother of an adult son, with a past history of CVA, high blood pressure, diabetes type 2 and cognitive impairment. The patient was discharged from a [facility] facility [facility] weeks ago due to agitation. The patient was presented to the emergency room of [facility] due to altered mental status, aggressive behavior and psychotic symptoms. According to the crisis assessment, the patient complained of auditory hallucinations, visual hallucinations, disorganized behavior and paranoia stating that people wanted to hurt her. Her son is the healthcare proxy reported that she had been on manageable at home. She was assessed by the crisis team, medically cleared and transferring to this facility for psychiatric stabilization. On interview, the patient was on her bed, she looks very tired, only English- speaking and stated that she was doing fine that she does not have pain. Apparently on the emergency room she had abdominal pain and most likely she had a UTI that has been treated. At this moment, her vital signs are stable and she was able to sleep well last night with good appetite. The patient is a very poor historian she is unable to remember how come she in the here and she told me that should ask her son who is the 1 who takes care of her. We invoke her healthcare proxy and the son sign the conditional voluntary. We are going to try to gather more collateral information. According to the medication reconciliation from [facility], the patient is currently on Risperdal. We will continue with the current medications and reassess. The patient is unable to understand gregory warning at this moment. Past Psychiatric History: Unclear apparently she have had the diagnosis of dementia in the past Medical Evaluation Reviewed: Yes [facility] Narrative: CVA High blood pressure Diabetes Hypercholesteremia Family History: Denies Social History: The patient is only English speaking Sudanese with good social i support, her son is involved in her care. We are unable to gather more information regarding her social history Substance History: Denies Trauma History: Denies Diagnostics Vital Signs (24Hr): Vital Signs - 24 hr 01/15/23 18:00 01/16/23 06:00 Temperature 97.3 F 97.8 F Pulse Rate 84 76 Respiratory Rate 18 16 Blood Pressure 152/70 H 166/90 H Pulse Oximetry 97 95 Oxygen Delivery Method Room Air Room Air Labs Labs: Laboratory Results - last 48 hr 01/16/23 07:23 POC Glucose 138 H Meds/Allergies Meds Home Medications Medication Instructions Recorded Confirmed Type acetaminophen 1,000 mg PO TID 01/16/23 01/16/23 History albuterol 2.5 mg inhalation QID PRN HX of 01/16/23 01/16/23 History Asthma atorvastatin 20 mg PO DAILY 01/16/23 01/16/23 History benzocaine-menthol 1 mg PO Q1-2H PRN Pain 01/16/23 01/16/23 History clopidogrel 75 mg PO DAILY 01/16/23 01/16/23 History diphenhydramine HCl 12.5 mg PO QID PRN unknown 01/16/23 01/16/23 History docusate sodium 100 mg PO BID 01/16/23 01/16/23 History gabapentin 200 mg PO BID 01/16/23 01/16/23 History guaifenesin 600 mg PO BID 01/16/23 01/16/23 History haloperidol 2 mg PO Q4-6H PRN unknown 01/16/23 01/16/23 History heparin (porcine) 5,000 units subcut BID 01/16/23 01/16/23 History insulin glargine 15 units subcut DAILY 01/16/23 01/16/23 History lisinopril 20 mg PO DAILY 01/16/23 01/16/23 History lorazepam 1 mg PO QID PRN agitation 01/16/23 01/16/23 History mirtazapine 7.5 mg PO BEDTIME 01/16/23 01/16/23 History ondansetron HCl 4 mg tablet 4 mg PO QID 01/16/23 01/16/23 History risperidone 0.5 mg PO BEDTIME 01/16/23 01/16/23 History risperidone 0.5 mg PO BID 01/16/23 01/16/23 History sertraline 50 mg PO DAILY 01/16/23 01/16/23 History trazodone 50 mg PO BEDTIME 01/16/23 01/16/23 History Allergies Allergies Allergy/AdvReac Type Severity Reaction Status Date / Time aspirin Allergy Unknown Verified 01/15/23 18:02 egg Allergy Unknown Verified 01/15/23 18:02 Fish Containing Products Allergy Unknown Verified 01/15/23 18:02 ibuprofen Allergy Unknown Verified 01/15/23 18:02 Influenza Virus Vaccines Allergy Unknown Verified 01/15/23 18:02 iodine Allergy Unknown Verified 01/15/23 18:02 latex Allergy Unknown Verified 01/15/23 18:02 Penicillins Allergy Unknown Verified 01/15/23 18:02 Tetanus Vaccines and Toxoid Allergy Unknown Verified 01/15/23 18:02 tomato Allergy Unknown Verified 01/15/23 18:02 Mental Status Exam Mental Status Exam Patient Appearance: Appropriate and Unkempt Patient Orientation: Person Level of Consciousness: Awake Patient Behavior: Guarded and Passive Mood Description: Withdrawn Affect Description: Blunted Patient Cognition Impaired: Yes Ability to Follow Directions: Fair Speech Pattern: Clear Hallucinations: None Delusions: Paranoid Ideation Perceptual Disturbances: Hallucinations Thought Process: Distracted and Slowed Thinking Thought Content: positive for [place] and positive for [place]overty of Content Judgement: Poor Assessment & Plan Assessment & Plan (1) Psychotic disorder: Status: Acute Code(s): F29 - Unspecified psychosis not due to a substance or known physiological condition (2) Neurodegenerative cognitive impairment: Status: Acute Code(s): G31.9 - Degenerative disease of nervous system, unspecified Plan The patient is an elderly female with a past history of CVA, high blood pressure, diabetes, hypercholesterolemia, dementia and recent onset of psychotic symptoms with hallucinations, paranoia and disorganized behavior. She was initially treated in the emergency room of [facility] and transferred to this facility for psychiatric stabilization. The patient is a very poor historian able to provide any details. Plan 1. Gather collateral information. Continue with Risperdal. 3. Continue with medical workout. 4. Reassessment with results. 5. 15 minutes checks Patient educated on: diagnosis Reason for continued inpatient stay Substantial Risk for: inability to function, rapid decompensation and med/psych decompensation Statement Statement: I have reviewed the history and physical and performed a pertinent examination on my patient. No changes have occurred unless specified. If the History and Physical was not performed prior to admission, the Hospitalist's service will be consulted for completing the admission physical. Time Spent With Patient Time: Total time managing care of this patient today __45__ minutes.
[2023-01-16] MEDS: risperiDONE 0.5 MG TABLET PO ×2 (16:21→21:22)
[2023-01-16 18:00] VITALS: BP 125/67; PULSE 92; RESP 16; TEMP 36.3; O2SAT 95
--- NOTE | 2023-01-16 18:54 | PC.NURSE ---
Pt resting in bed 15:00 to 19:00. Refused to get up from bed. Took her meds as ordered. Then refused everything else. Leave me alone, get out of here .
[2023-01-16] MEDS: traZODone HCL 50 MG TABLET PO (21:23)
[2023-01-16] MEDS: Mirtazapine 7.5 MG TABLET PO (21:23)
[2023-01-17 06:52] LABS: Glucose, Whole Blood 83 mg/dL (60-115)
[2023-01-17 07:45] VITALS: BP 93/58; PULSE 68; RESP 16; TEMP 36.1; O2SAT 98
[2023-01-17] MEDS: Clopidogrel Bisulfate 75 MG TABLET PO (08:00)
[2023-01-17] MEDS: Sertraline HCL 50 MG TABLET PO (08:00)
[2023-01-17] MEDS: risperiDONE 0.5 MG TABLET PO ×2 (08:00→14:43)
[2023-01-17] MEDS: guaiFENesin LA 600 MG TAB.ER.12H PO ×2 (08:00→20:16)
[2023-01-17] MEDS: Docusate Sodium 100 MG CAPSULE PO ×2 (08:00→20:16)
[2023-01-17] MEDS: Ondansetron ODT 4 MG TAB.RAPDIS TRANSLINGU ×4 (08:00→20:16)
[2023-01-17] MEDS: Gabapentin 100 MG CAPSULE 200 MG PO ×2 (08:01→20:16)
[2023-01-17] MEDS: Atorvastatin Calcium 20 MG TABLET PO (08:09)
--- NOTE | 2023-01-17 14:06 | HO.PSYCHPN ---
Subjective Subjective Date of Service: 01/17/23 Reason For Visit: Major Depressive D/o, w/ psychotic features Subjective Notes: Conditional Voluntary (By healthcare proxy) Healthcare Proxy: Yes Interim History: The nursing staff reported the patient has refused her supper and medications at night. She has refused her breakfast today. Her blood pressure and vital signs were slightly low so we held her lisinopril today. The staff reported the patient had been attention seeking mostly in the morning and she has an being on one-to-one for safety. On interview the patient denies new symptoms she looks pleasantly confused. She admitted sporadic AH, she agreed to increase Risperdal. Mental Status Exam Mental Status Exam Patient Appearance: Well Grooomed Patient Orientation: Person Level of Consciousness: Awake and Restless Patient Behavior: Guarded and Passive Mood Description: Calm Affect Description: Blunted Patient Cognition Impaired: Yes Ability to Follow Directions: Good Speech Pattern: Clear Hallucinations: None Delusions: Paranoid Ideation Thought Process: Distracted Thought Content: positive for [place] and positive for Perseveration Judgement: Poor Diagnostics Vital Signs (24Hr): Vital Signs - 24 hr 01/16/23 18:00 01/17/23 07:45 Temperature 97.4 F 97.0 F Pulse Rate 92 68 Respiratory Rate 16 16 Blood Pressure 125/67 93/58 L Pulse Oximetry 95 98 Oxygen Delivery Method Room Air Room Air Labs Labs: Laboratory Results - last 48 hr 01/16/23 01/17/23 07:23 06:45 POC Glucose 138 H 83 Medications Medications Current Medications Acetaminophen (Acetaminophen 325 Mg Tablet) 650 mg PO Q6H PRN PRN Reason: Headache/Pain Mild Scale (1-3) Last Admin: 01/16/23 09:31 Dose: 650 mg Al Hydroxide/Mg Hydroxide (Magnesium Hydrox/Alum Hydrox 30 Ml Oral.Susp) 30 ml PO Q6H PRN PRN Reason: Heartburn/Nausea Albuterol Sulfate (Albuterol Sulfate (0.083%) 2.5 Mg/3 Ml Vial.Neb) 2.5 mg INHALE QID PRN PRN Reason: HX of Asthma Atorvastatin Calcium (Atorvastatin Calcium 20 Mg Tablet) 20 mg PO DAILY [facility] Last Admin: 01/17/23 08:09 Dose: 20 mg Clopidogrel Bisulfate (Clopidogrel Bisulfate 75 Mg Tablet) 75 mg PO DAILY [facility] Last Admin: 01/17/23 08:00 Dose: 75 mg Docusate Sodium (Docusate Sodium 100 Mg Capsule) 100 mg PO BID [facility] Last Admin: 01/17/23 08:00 Dose: 100 mg Gabapentin (Gabapentin 100 Mg Capsule) 200 mg PO BID [facility] Last Admin: 01/17/23 08:01 Dose: 200 mg Guaifenesin (Guaifenesin La 600 Mg Tab.Er.12h) 600 mg PO BID [facility] Last Admin: 01/17/23 08:00 Dose: 600 mg Insulin Glargine (Insulin Glargine,Hum.Rec.Anlog 100 Unit/Ml 10 Ml Vial) 15 unit SUBCUT DAILY [facility] Last Admin: 01/17/23 08:48 Dose: Not Given Lisinopril (Lisinopril 20 Mg Tablet) 20 mg PO DAILY [facility] Last Admin: 01/17/23 08:48 Dose: Not Given Magnesium Hydroxide (Milk Of Magnesia 30 Ml Oral.Susp) 30 ml PO DAILY PRN PRN Reason: Constipation Mirtazapine (Mirtazapine 7.5 Mg Tablet) 7.5 mg PO BEDTIME [facility] Last Admin: 01/16/23 21:23 Dose: 7.5 mg Ondansetron HCl (Ondansetron Odt 4 Mg Tab.Rapdis) 4 mg TRANSLINGU QID [facility] Last Admin: 01/17/23 13:19 Dose: 4 mg Risperidone (Risperidone 0.5 Mg Tablet) 0.5 mg PO BEDTIME [facility] Last Admin: 01/16/23 21:22 Dose: 0.5 mg Risperidone (Risperidone 0.5 Mg Tablet) 0.5 mg PO BID@0800,1500 [facility] Last Admin: 01/17/23 08:00 Dose: 0.5 mg Sertraline HCl (Sertraline Hcl 50 Mg Tablet) 50 mg PO DAILY [facility] Last Admin: 01/17/23 08:00 Dose: 50 mg Trazodone HCl (Trazodone Hcl 25 Mg Halftab) 25 mg PO BEDTIME MRX1 PRN PRN Reason: Insomnia Trazodone HCl (Trazodone Hcl 50 Mg Tablet) 50 mg PO BEDTIME [facility] Last Admin: 01/16/23 21:23 Dose: 50 mg Allergies Allergies Allergy/AdvReac Type Severity Reaction Status Date / Time aspirin Allergy Unknown Verified 01/15/23 18:02 egg Allergy Unknown Verified 01/15/23 18:02 Fish Containing Products Allergy Unknown Verified 01/15/23 18:02 ibuprofen Allergy Unknown Verified 01/15/23 18:02 Influenza Virus Vaccines Allergy Unknown Verified 01/15/23 18:02 iodine Allergy Unknown Verified 01/15/23 18:02 latex Allergy Unknown Verified 01/15/23 18:02 Penicillins Allergy Unknown Verified 01/15/23 18:02 Tetanus Vaccines and Toxoid Allergy Unknown Verified 01/15/23 18:02 tomato Allergy Unknown Verified 01/15/23 18:02 Assessment & Plan Assessment & Plan (1) Medical clearance for psychiatric admission: Status: Acute Code(s): Z00.8 - Encounter for other general examination Plan Pt is a German-speaking 72-year-old female with a PMH significant for?dementia unspecified, hx of CVA, HLD, HTN, insulin-dependent diabetes type 2, and MDD with psychotic features who is admitted to [facility] for aggressive behavior and hearing voices. Patient lives with her son who states she is becoming increasingly unmanageable at home: Has been tearing up pictures, breaking glass, hitting him in the face, and been non compliant with her medications by spitting them out. Medical consult for admission H&P. Mood disorder Plan as per Psychiatry HLD/ hx of CVA Continue statin, Plavix HTN Acceptable BP control on current therapies Continue home meds Insulin-dependent type 2 diabetes SSI, Lantus, diabetic diet Abnormal CTA findings CTA at [facility] on 01/17/2023 phone possible colonic mucosal lesion at the splenic flexure versus artifact of under distention Suggestion is for direct visualization with colonoscopy unless one has been done recently Follow-up outpatient with PCP Plan 1. Gather collateral information. 2. Continue with antipsychotics as prescribed. We are increasing Risperdal on 01/17 due to AH. 3. Reassessment results. Reason for continued inpatient stay Substantial Risk for: inability to function, rapid decompensation and med/psych decompensation Time Spent With Patient Time: Total time managing care of this patient today __20__ minutes.
[2023-01-17] MEDS: Milk of Magnesia 30 ML ORAL.SUSP PO (18:13)
[2023-01-17 19:40] VITALS: BP 156/72; PULSE 87; RESP 16; TEMP 36.6; O2SAT 95
[2023-01-17] MEDS: risperiDONE 1 MG TABLET PO (20:16)
[2023-01-17] MEDS: traZODone HCL 50 MG TABLET PO (20:16)
[2023-01-17] MEDS: Mirtazapine 7.5 MG TABLET PO (20:16)
[2023-01-18] MEDS: Magnesium Hydrox/Alum Hydrox 30 ML ORAL.SUSP PO (03:59)
[2023-01-18] MEDS: traZODone HCL 25 MG HALFTAB PO ×3 (03:59→23:05)
[2023-01-18 08:00] VITALS: BP 162/78; PULSE 105; RESP 18; TEMP 36.6; O2SAT 100
--- NOTE | 2023-01-18 08:12 | P.PNPSI_ITS ---
Subjective Subjective Date of Service: 01/18/23 Reason For Visit: Major Depressive D/o, w/ psychotic features Subjective Notes: Section 7 and Section 8 Interim History: The nursing staff reported the patient is on one-to-one for safety. She likes to put herself on the floor very confused and complained of constipation. She has Zofran skin. She took trazodone up to 02:00 o'clock in the morning due to insomnia. On interview the patient reports that she has hearing sporadic voices. We will increase his Risperdal tomorrow if it continues with the psychotic symptoms. We increase her Risperdal yesterday. Mental Status Exam Mental Status Exam Patient Appearance: Appropriate Patient Orientation: Person Level of Consciousness: Awake and Restless Patient Behavior: Guarded and Suspicious Mood Description: Calm Affect Description: Constricted Patient Cognition Impaired: Yes Ability to Follow Directions: Good Speech Pattern: Clear and Soft-Spoken Hallucinations: None Delusions: Paranoid Ideation Thought Process: Distracted and Slowed Thinking Thought Content: positive for [place] and positive for Circumstantial Judgement: Fair Diagnostics Vital Signs (24Hr): Vital Signs - 24 hr 01/17/23 19:40 Temperature 97.8 F Pulse Rate 87 Respiratory Rate 16 Blood Pressure 156/72 H Pulse Oximetry 95 Oxygen Delivery Method Room Air Labs Labs: Laboratory Results - last 48 hr 01/17/23 06:45 POC Glucose 83 Medications Medications Current Medications Acetaminophen (Acetaminophen 325 Mg Tablet) 650 mg PO Q6H PRN PRN Reason: Headache/Pain Mild Scale (1-3) Last Admin: 01/16/23 09:31 Dose: 650 mg Al Hydroxide/Mg Hydroxide (Magnesium Hydrox/Alum Hydrox 30 Ml Oral.Susp) 30 ml PO Q6H PRN PRN Reason: Heartburn/Nausea Last Admin: 01/18/23 03:59 Dose: 30 ml Albuterol Sulfate (Albuterol Sulfate (0.083%) 2.5 Mg/3 Ml Vial.Neb) 2.5 mg INHALE QID PRN PRN Reason: HX of Asthma Atorvastatin Calcium (Atorvastatin Calcium 20 Mg Tablet) 20 mg PO DAILY [facility] Last Admin: 01/17/23 08:09 Dose: 20 mg Clopidogrel Bisulfate (Clopidogrel Bisulfate 75 Mg Tablet) 75 mg PO DAILY [facility] Last Admin: 01/17/23 08:00 Dose: 75 mg Docusate Sodium (Docusate Sodium 100 Mg Capsule) 100 mg PO BID [facility] Last Admin: 01/17/23 20:16 Dose: 100 mg Gabapentin (Gabapentin 100 Mg Capsule) 200 mg PO BID [facility] Last Admin: 01/17/23 20:16 Dose: 200 mg Guaifenesin (Guaifenesin La 600 Mg Tab.Er.12h) 600 mg PO BID [facility] Last Admin: 01/17/23 20:16 Dose: 600 mg Insulin Glargine (Insulin Glargine,Hum.Rec.Anlog 100 Unit/Ml 10 Ml Vial) 15 unit SUBCUT DAILY [facility] Last Admin: 01/17/23 08:48 Dose: Not Given Lisinopril (Lisinopril 20 Mg Tablet) 20 mg PO DAILY [facility] Last Admin: 01/17/23 08:48 Dose: Not Given Magnesium Hydroxide (Milk Of Magnesia 30 Ml Oral.Susp) 30 ml PO DAILY PRN PRN Reason: Constipation Last Admin: 01/17/23 18:13 Dose: 30 ml Mirtazapine (Mirtazapine 7.5 Mg Tablet) 7.5 mg PO BEDTIME [facility] Last Admin: 01/17/23 20:16 Dose: 7.5 mg Ondansetron HCl (Ondansetron Odt 4 Mg Tab.Rapdis) 4 mg TRANSLINGU QID [facility] Last Admin: 01/17/23 20:16 Dose: 4 mg Risperidone (Risperidone 0.5 Mg Tablet) 0.5 mg PO BID@0800,1500 [facility] Last Admin: 01/17/23 14:43 Dose: 0.5 mg Risperidone (Risperidone 1 Mg Tablet) 1 mg PO BEDTIME [facility] Last Admin: 01/17/23 20:16 Dose: 1 mg Sertraline HCl (Sertraline Hcl 50 Mg Tablet) 50 mg PO DAILY [facility] Last Admin: 01/17/23 08:00 Dose: 50 mg Trazodone HCl (Trazodone Hcl 25 Mg Halftab) 25 mg PO BEDTIME MRX1 PRN PRN Reason: Insomnia Last Admin: 01/18/23 03:59 Dose: 25 mg Trazodone HCl (Trazodone Hcl 50 Mg Tablet) 50 mg PO BEDTIME [facility] Last Admin: 01/17/23 20:16 Dose: 50 mg Allergies Allergies Allergy/AdvReac Type Severity Reaction Status Date / Time aspirin Allergy Unknown Verified 01/15/23 18:02 egg Allergy Unknown Verified 01/15/23 18:02 Fish Containing Products Allergy Unknown Verified 01/15/23 18:02 ibuprofen Allergy Unknown Verified 01/15/23 18:02 Influenza Virus Vaccines Allergy Unknown Verified 01/15/23 18:02 iodine Allergy Unknown Verified 01/15/23 18:02 latex Allergy Unknown Verified 01/15/23 18:02 Penicillins Allergy Unknown Verified 01/15/23 18:02 Tetanus Vaccines and Toxoid Allergy Unknown Verified 01/15/23 18:02 tomato Allergy Unknown Verified 01/15/23 18:02 Assessment & Plan Assessment & Plan (1) Medical clearance for psychiatric admission: Status: Acute Code(s): Z00.8 - Encounter for other general examination Plan Pt is a Pashto-speaking 72-year-old female with a PMH significant for?dementia unspecified, hx of CVA, HLD, HTN, insulin-dependent diabetes type 2, and MDD with psychotic features who is admitted to [facility] for aggressive behavior and hearing voices. Patient lives with her son who states she is becoming increasingly unmanageable at home: Has been tearing up pictures, breaking glass, hitting him in the face, and been non compliant with her medications by spitting them out. Medical consult for admission H&P. Mood disorder Plan as per Psychiatry HLD/ hx of CVA Continue statin, Plavix HTN Acceptable BP control on current therapies Continue home meds Insulin-dependent type 2 diabetes SSI, Lantus, diabetic diet Abnormal CTA findings CTA at [facility] on 01/17/2023 phone possible colonic mucosal lesion at the splenic flexure versus artifact of under distention Suggestion is for direct visualization with colonoscopy unless one has been done recently Follow-up outpatient with PCP Plan 1. Gather collateral information. 2. Continue with Risperdal as prescribed. He was change yesterday and we will reassess if her psychotic symptoms resolved. 3. Reassessment results Reason for continued inpatient stay Substantial Risk for: inability to function, rapid decompensation and med/psych decompensation Time Spent With Patient Time: Total time managing care of this patient today __20__ minutes.
[2023-01-18] MEDS: Sertraline HCL 50 MG TABLET PO (08:28)
[2023-01-18] MEDS: guaiFENesin LA 600 MG TAB.ER.12H PO ×2 (08:28→20:23)
[2023-01-18] MEDS: Atorvastatin Calcium 20 MG TABLET PO (08:28)
[2023-01-18] MEDS: Clopidogrel Bisulfate 75 MG TABLET PO (08:28)
[2023-01-18] MEDS: lisinopriL 20 MG TABLET PO (08:28)
[2023-01-18] MEDS: Ondansetron ODT 4 MG TAB.RAPDIS TRANSLINGU ×4 (08:28→20:23)
[2023-01-18] MEDS: Gabapentin 100 MG CAPSULE 200 MG PO ×2 (08:28→20:23)
[2023-01-18] MEDS: Docusate Sodium 100 MG CAPSULE PO ×2 (08:28→20:23)
[2023-01-18] MEDS: Acetaminophen 325 MG TABLET 650 MG PO (08:41)
[2023-01-18] MEDS: risperiDONE 0.5 MG TABLET PO ×2 (08:44→15:39)
[2023-01-18 08:58] LABS: Glucose, Whole Blood 145 mg/dL (60-115)
[2023-01-18] MEDS: Insulin Glargine,Hum.rec.anlog 100 UNIT/ML 10 ML VIAL 15 UNIT SUBCUT (09:32)
[2023-01-18 18:00] VITALS: BP 155/68; PULSE 78; RESP 17; TEMP 36.4; O2SAT 97
[2023-01-18] MEDS: risperiDONE 1 MG TABLET PO (20:23)
[2023-01-18] MEDS: Mirtazapine 7.5 MG TABLET PO (20:23)
[2023-01-18] MEDS: traZODone HCL 50 MG TABLET PO (20:23)
[2023-01-19 08:00] VITALS: BP 146/68; PULSE 74; RESP 18; TEMP 36.7; O2SAT 97
[2023-01-19] MEDS: Clopidogrel Bisulfate 75 MG TABLET PO (08:39)
[2023-01-19] MEDS: guaiFENesin LA 600 MG TAB.ER.12H PO ×2 (08:50→20:26)
[2023-01-19] MEDS: Gabapentin 100 MG CAPSULE 200 MG PO ×2 (08:50→20:26)
[2023-01-19] MEDS: Atorvastatin Calcium 20 MG TABLET PO (08:50)
[2023-01-19] MEDS: Docusate Sodium 100 MG CAPSULE PO ×2 (08:50→20:27)
[2023-01-19] MEDS: risperiDONE 0.5 MG TABLET PO (08:50)
[2023-01-19] MEDS: Insulin Glargine,Hum.rec.anlog 100 UNIT/ML 10 ML VIAL 15 UNIT SUBCUT (08:51)
[2023-01-19] MEDS: Ondansetron ODT 4 MG TAB.RAPDIS TRANSLINGU ×4 (08:51→20:26)
[2023-01-19] MEDS: lisinopriL 20 MG TABLET PO (08:51)
[2023-01-19] MEDS: Sertraline HCL 50 MG TABLET PO (08:51)
--- NOTE | 2023-01-19 09:00 | P.PNPSI_ITS ---
Subjective Subjective Date of Service: 01/19/23 Reason For Visit: Major Depressive D/o, w/ psychotic features Interim History: The nursing staff reported the patient still one-to-one, very confused, she was able to walk yesterday with help. She slept poorly last night and she had been aggressive against her sitter. She had been compliant with medications. On interview the patient is confused. No over-sedation with risperidone. We are increasing up to 1 mg p.o. t.i.d.. Mental Status Exam Mental Status Exam Patient Appearance: Appropriate Patient Orientation: Person Level of Consciousness: Awake and Restless Patient Behavior: Appropriate and Passive Mood Description: Withdrawn Affect Description: Constricted Patient Cognition Impaired: Yes Ability to Follow Directions: Good Speech Pattern: Clear Hallucinations: None Delusions: Paranoid Ideation and Ideas of Reference Thought Process: Distracted and Evasive Thought Content: positive for [place] and positive for Circumstantial Judgement: Poor Diagnostics Vital Signs (24Hr): Vital Signs - 24 hr 01/18/23 18:00 Temperature 97.6 F Pulse Rate 78 Respiratory Rate 17 Blood Pressure 155/68 H Pulse Oximetry 97 Oxygen Delivery Method Room Air Labs Labs: Laboratory Results - last 48 hr 01/18/23 08:47 POC Glucose 145 H Medications Medications Current Medications Acetaminophen (Acetaminophen 325 Mg Tablet) 650 mg PO Q6H PRN PRN Reason: Headache/Pain Mild Scale (1-3) Last Admin: 01/18/23 08:41 Dose: 650 mg Al Hydroxide/Mg Hydroxide (Magnesium Hydrox/Alum Hydrox 30 Ml Oral.Susp) 30 ml PO Q6H PRN PRN Reason: Heartburn/Nausea Last Admin: 01/18/23 03:59 Dose: 30 ml Albuterol Sulfate (Albuterol Sulfate (0.083%) 2.5 Mg/3 Ml Vial.Neb) 2.5 mg INHALE QID PRN PRN Reason: HX of Asthma Atorvastatin Calcium (Atorvastatin Calcium 20 Mg Tablet) 20 mg PO DAILY [facility] Last Admin: 01/19/23 08:50 Dose: 20 mg Clopidogrel Bisulfate (Clopidogrel Bisulfate 75 Mg Tablet) 75 mg PO DAILY [facility] Last Admin: 01/19/23 08:39 Dose: 75 mg Docusate Sodium (Docusate Sodium 100 Mg Capsule) 100 mg PO BID [facility] Last Admin: 01/19/23 08:50 Dose: 100 mg Gabapentin (Gabapentin 100 Mg Capsule) 200 mg PO BID [facility] Last Admin: 01/19/23 08:50 Dose: 200 mg Guaifenesin (Guaifenesin La 600 Mg Tab.Er.12h) 600 mg PO BID [facility] Last Admin: 01/19/23 08:50 Dose: 600 mg Insulin Glargine (Insulin Glargine,Hum.Rec.Anlog 100 Unit/Ml 10 Ml Vial) 15 unit SUBCUT DAILY [facility] Last Admin: 01/19/23 08:51 Dose: 15 unit Lisinopril (Lisinopril 20 Mg Tablet) 20 mg PO DAILY [facility] Last Admin: 01/19/23 08:51 Dose: 20 mg Magnesium Hydroxide (Milk Of Magnesia 30 Ml Oral.Susp) 30 ml PO DAILY PRN PRN Reason: Constipation Last Admin: 01/17/23 18:13 Dose: 30 ml Mirtazapine (Mirtazapine 7.5 Mg Tablet) 7.5 mg PO BEDTIME [facility] Last Admin: 01/18/23 20:23 Dose: 7.5 mg Ondansetron HCl (Ondansetron Odt 4 Mg Tab.Rapdis) 4 mg TRANSLINGU QID [facility] Last Admin: 01/19/23 08:51 Dose: 4 mg Risperidone (Risperidone 0.5 Mg Tablet) 0.5 mg PO BID@0800,1500 [facility] Last Admin: 01/19/23 08:50 Dose: 0.5 mg Risperidone (Risperidone 1 Mg Tablet) 1 mg PO BEDTIME [facility] Last Admin: 01/18/23 20:23 Dose: 1 mg Sertraline HCl (Sertraline Hcl 50 Mg Tablet) 50 mg PO DAILY [facility] Last Admin: 01/19/23 08:51 Dose: 50 mg Trazodone HCl (Trazodone Hcl 25 Mg Halftab) 25 mg PO BEDTIME MRX1 PRN PRN Reason: Insomnia Last Admin: 01/18/23 23:05 Dose: 25 mg Trazodone HCl (Trazodone Hcl 50 Mg Tablet) 50 mg PO BEDTIME [facility] Last Admin: 01/18/23 20:23 Dose: 50 mg Allergies Allergies Allergy/AdvReac Type Severity Reaction Status Date / Time aspirin Allergy Unknown Verified 01/15/23 18:02 egg Allergy Unknown Verified 01/15/23 18:02 Fish Containing Products Allergy Unknown Verified 01/15/23 18:02 ibuprofen Allergy Unknown Verified 01/15/23 18:02 Influenza Virus Vaccines Allergy Unknown Verified 01/15/23 18:02 iodine Allergy Unknown Verified 01/15/23 18:02 latex Allergy Unknown Verified 01/15/23 18:02 Penicillins Allergy Unknown Verified 01/15/23 18:02 Tetanus Vaccines and Toxoid Allergy Unknown Verified 01/15/23 18:02 tomato Allergy Unknown Verified 01/15/23 18:02 Assessment & Plan Assessment & Plan (1) Medical clearance for psychiatric admission: Status: Acute Code(s): Z00.8 - Encounter for other general examination Plan Pt is a Icelandic-speaking 72-year-old female with a PMH significant for?dementia unspecified, hx of CVA, HLD, HTN, insulin-dependent diabetes type 2, and MDD with psychotic features who is admitted to [facility] for aggressive behavior and hearing voices. Patient lives with her son who states she is becoming increasingly unmanageable at home: Has been tearing up pictures, breaking glass, hitting him in the face, and been non compliant with her medications by spitting them out. Medical consult for admission H&P. Mood disorder Plan as per Psychiatry HLD/ hx of CVA Continue statin, Plavix HTN Acceptable BP control on current therapies Continue home meds Insulin-dependent type 2 diabetes SSI, Lantus, diabetic diet Abnormal CTA findings CTA at [facility] on 01/17/2023 phone possible colonic mucosal lesion at the splenic flexure versus artifact of under distention Suggestion is for direct visualization with colonoscopy unless one has been done recently Follow-up outpatient with PCP Plan 1. Gather collateral information. 2. Continue with Risperdal as prescribed. On January 19 we increased Risperdal to 1 mg p.o. t.i.d. 3. Reassessment results 4. Trazodone is increased up to 100 mg p.o. q.h.s. in January 19. Reason for continued inpatient stay Substantial Risk for: inability to function, rapid decompensation and med/psych decompensation Time Spent With Patient Time: Total time managing care of this patient today ___20_ minutes.
[2023-01-19] MEDS: risperiDONE 1 MG TABLET PO ×2 (15:01→20:26)
[2023-01-19 18:00] VITALS: BP 181/79; PULSE 93; RESP 17; TEMP 36; O2SAT 98
[2023-01-19] MEDS: traZODone HCL 25 MG HALFTAB PO ×2 (20:26→23:51)
[2023-01-19] MEDS: traZODone HCL 100 MG TABLET PO (20:26)
[2023-01-19] MEDS: Mirtazapine 7.5 MG TABLET PO (20:26)
[2023-01-19] MEDS: Acetaminophen 325 MG TABLET 650 MG PO (20:27)
[2023-01-20 01:00] VITALS: BP 142/80; PULSE 82; O2SAT 98
[2023-01-20] MEDS: Acetaminophen 325 MG TABLET 650 MG PO ×3 (04:17→20:54)
[2023-01-20] MEDS: Albuterol Sulfate (0.083%) 2.5 MG/3 ML VIAL.NEB INHALE (05:08)
[2023-01-20 05:09] VITALS: PULSE 83; O2SAT 99
[2023-01-20 06:54] LABS: Glucose, Whole Blood 221 mg/dL (60-115)
[2023-01-20 07:45] VITALS: BP 141/74; PULSE 87; RESP 18; TEMP 36; O2SAT 100
[2023-01-20] MEDS: Gabapentin 100 MG CAPSULE 200 MG PO ×2 (08:45→20:55)
[2023-01-20] MEDS: lisinopriL 20 MG TABLET PO (08:46)
[2023-01-20] MEDS: risperiDONE 1 MG TABLET PO ×3 (08:46→20:55)
[2023-01-20] MEDS: Clopidogrel Bisulfate 75 MG TABLET PO (08:46)
[2023-01-20] MEDS: guaiFENesin LA 600 MG TAB.ER.12H PO ×2 (08:46→20:55)
[2023-01-20] MEDS: Sertraline HCL 50 MG TABLET PO (08:46)
[2023-01-20] MEDS: Docusate Sodium 100 MG CAPSULE PO ×2 (08:46→20:55)
[2023-01-20] MEDS: Ondansetron ODT 4 MG TAB.RAPDIS TRANSLINGU ×4 (08:46→20:55)
[2023-01-20] MEDS: Atorvastatin Calcium 20 MG TABLET PO (08:46)
[2023-01-20] MEDS: Insulin Glargine,Hum.rec.anlog 100 UNIT/ML 10 ML VIAL 15 UNIT SUBCUT (09:04)
--- NOTE | 2023-01-20 12:04 | P.PNPSI_ITS ---
Subjective Subjective Date of Service: 01/20/23 Reason For Visit: Major Depressive D/o, w/ psychotic features Subjective Notes: Conditional Voluntary Interim History: The nursing staff reported the patient had been confused with no changes in her mental status. She complained of pain on her ankle. She had been restless with poor sleep last night. The social media sr strategy manager reported we are going to meet with her son next Friday. On interview the patient is pleasantly confused denies active auditory hallucinations at this moment. Mental Status Exam Mental Status Exam Patient Appearance: Unkempt Patient Orientation: Person Level of Consciousness: Awake Patient Behavior: Guarded and Passive Mood Description: Withdrawn Affect Description: Constricted Patient Cognition Impaired: Yes Ability to Follow Directions: Fair Speech Pattern: Clear Hallucinations: None Delusions: Paranoid Ideation Thought Process: Distracted and Slowed Thinking Thought Content: positive for [place], positive for [place] and positive for Poverty of Content Judgement: Poor Diagnostics Vital Signs (24Hr): Vital Signs - 24 hr 01/19/23 18:00 01/20/23 01:00 01/20/23 05:09 Temperature 96.8 F Pulse Rate 93 82 83 Respiratory Rate 17 Blood Pressure 181/79 H 142/80 H Pulse Oximetry 98 98 Oxygen Delivery Method Room Air Room Air 01/20/23 07:45 Temperature 96.8 F Pulse Rate 87 Respiratory Rate 18 Blood Pressure 141/74 H Pulse Oximetry 100 Oxygen Delivery Method Room Air Labs Labs: Laboratory Results - last 48 hr 01/20/23 06:47 POC Glucose 221 H Medications Medications Current Medications Acetaminophen (Acetaminophen 325 Mg Tablet) 650 mg PO Q6H PRN PRN Reason: Headache/Pain Mild Scale (1-3) Last Admin: 01/20/23 04:17 Dose: 650 mg Al Hydroxide/Mg Hydroxide (Magnesium Hydrox/Alum Hydrox 30 Ml Oral.Susp) 30 ml PO Q6H PRN PRN Reason: Heartburn/Nausea Last Admin: 01/18/23 03:59 Dose: 30 ml Albuterol Sulfate (Albuterol Sulfate (0.083%) 2.5 Mg/3 Ml Vial.Neb) 2.5 mg INHALE QID PRN PRN Reason: HX of Asthma Last Admin: 01/20/23 05:08 Dose: 2.5 mg Atorvastatin Calcium (Atorvastatin Calcium 20 Mg Tablet) 20 mg PO DAILY [facility] Last Admin: 09/25/23 08:46 Dose: 20 mg Clopidogrel Bisulfate (Clopidogrel Bisulfate 75 Mg Tablet) 75 mg PO DAILY [facility] Last Admin: 01/20/23 08:46 Dose: 75 mg Docusate Sodium (Docusate Sodium 100 Mg Capsule) 100 mg PO BID [facility] Last Admin: 01/20/23 08:46 Dose: 100 mg Gabapentin (Gabapentin 100 Mg Capsule) 200 mg PO BID [facility] Last Admin: 01/20/23 08:45 Dose: 200 mg Guaifenesin (Guaifenesin La 600 Mg Tab.Er.12h) 600 mg PO BID [facility] Last Admin: 01/20/23 08:46 Dose: 600 mg Insulin Glargine (Insulin Glargine,Hum.Rec.Anlog 100 Unit/Ml 10 Ml Vial) 15 unit SUBCUT DAILY [facility] Last Admin: 01/20/23 09:04 Dose: 15 unit Lisinopril (Lisinopril 20 Mg Tablet) 20 mg PO DAILY [facility] Last Admin: 01/20/23 08:46 Dose: 20 mg Magnesium Hydroxide (Milk Of Magnesia 30 Ml Oral.Susp) 30 ml PO DAILY PRN PRN Reason: Constipation Last Admin: 01/17/23 18:13 Dose: 30 ml Mirtazapine (Mirtazapine 7.5 Mg Tablet) 7.5 mg PO BEDTIME [facility] Last Admin: 01/19/23 20:26 Dose: 7.5 mg Ondansetron HCl (Ondansetron Odt 4 Mg Tab.Rapdis) 4 mg TRANSLINGU QID [facility] Last Admin: 01/20/23 08:46 Dose: 4 mg Risperidone (Risperidone 1 Mg Tablet) 1 mg PO BEDTIME [facility] Last Admin: 01/19/23 20:26 Dose: 1 mg Risperidone (Risperidone 1 Mg Tablet) 1 mg PO BID@0800,1500 [facility] Last Admin: 01/20/23 08:46 Dose: 1 mg Sertraline HCl (Sertraline Hcl 50 Mg Tablet) 50 mg PO DAILY [facility] Last Admin: 01/20/23 08:46 Dose: 50 mg Trazodone HCl (Trazodone Hcl 25 Mg Halftab) 25 mg PO BEDTIME MRX1 PRN PRN Reason: Insomnia Last Admin: 01/19/23 23:51 Dose: 25 mg Trazodone HCl (Trazodone Hcl 100 Mg Tablet) 100 mg PO BEDTIME [facility] Last Admin: 01/19/23 20:26 Dose: 100 mg Allergies Allergies Allergy/AdvReac Type Severity Reaction Status Date / Time aspirin Allergy Unknown Verified 01/15/23 18:02 egg Allergy Unknown Verified 01/15/23 18:02 Fish Containing Products Allergy Unknown Verified 01/15/23 18:02 ibuprofen Allergy Unknown Verified 01/15/23 18:02 Influenza Virus Vaccines Allergy Unknown Verified 01/15/23 18:02 iodine Allergy Unknown Verified 01/15/23 18:02 latex Allergy Unknown Verified 01/15/23 18:02 Penicillins Allergy Unknown Verified 01/15/23 18:02 Tetanus Vaccines and Toxoid Allergy Unknown Verified 01/15/23 18:02 tomato Allergy Unknown Verified 01/15/23 18:02 Assessment & Plan Assessment & Plan (1) Medical clearance for psychiatric admission: Status: Acute Code(s): Z00.8 - Encounter for other general examination Plan Pt is a Guamanian-speaking 72-year-old female with a PMH significant for?dementia unspecified, hx of CVA, HLD, HTN, insulin-dependent diabetes type 2, and MDD with psychotic features who is admitted to [facility] for aggressive behavior and hearing voices. Patient lives with her son who states she is becoming increasingly unmanageable at home: Has been tearing up pictures, breaking glass, hitting him in the face, and been non compliant with her medications by spitting them out. Medical consult for admission H&P. Mood disorder Plan as per Psychiatry HLD/ hx of CVA Continue statin, Plavix HTN Acceptable BP control on current therapies Continue home meds Insulin-dependent type 2 diabetes SSI, Lantus, diabetic diet Abnormal CTA findings CTA at [facility] on 01/17/2023 phone possible colonic mucosal lesion at the splenic flexure versus artifact of under distention Suggestion is for direct visualization with colonoscopy unless one has been done recently Follow-up outpatient with PCP Plan 1. Gather collateral information. 2. Continue with Risperdal as prescribed. On January 19 we increased Risperdal to 1 mg p.o. t.i.d. 3. Reassessment results 4. Trazodone is increased up to 100 mg p.o. q.h.s. in January 19. No improvement of poor sleep. We are going to add a low dose of Ambien at night. Reason for continued inpatient stay Substantial Risk for: inability to function, rapid decompensation and med/psych decompensation Time Spent With Patient Time: Total time managing care of this patient today __20__ minutes.
[2023-01-20] MEDS: Magnesium Hydrox/Alum Hydrox 30 ML ORAL.SUSP PO (14:58)
[2023-01-20 18:00] VITALS: BP 145/70; PULSE 84; RESP 16; TEMP 36; O2SAT 100
[2023-01-20] MEDS: Zolpidem Tartrate 5 MG TABLET PO (20:55)
[2023-01-20] MEDS: traZODone HCL 100 MG TABLET PO (20:55)
[2023-01-20] MEDS: Mirtazapine 7.5 MG TABLET PO (20:55)
[2023-01-21 07:55] VITALS: BP 144/71; PULSE 68; RESP 18; TEMP 36.8; O2SAT 98
[2023-01-21] MEDS: guaiFENesin LA 600 MG TAB.ER.12H PO ×2 (09:08→20:03)
[2023-01-21] MEDS: Docusate Sodium 100 MG CAPSULE PO ×2 (09:08→20:02)
[2023-01-21] MEDS: Atorvastatin Calcium 20 MG TABLET PO (09:08)
[2023-01-21] MEDS: Clopidogrel Bisulfate 75 MG TABLET PO (09:08)
[2023-01-21] MEDS: Ondansetron ODT 4 MG TAB.RAPDIS TRANSLINGU ×4 (09:08→20:02)
[2023-01-21] MEDS: risperiDONE 1 MG TABLET PO ×3 (09:08→20:02)
[2023-01-21] MEDS: lisinopriL 20 MG TABLET PO (09:08)
[2023-01-21] MEDS: Sertraline HCL 50 MG TABLET PO (09:08)
[2023-01-21] MEDS: Gabapentin 100 MG CAPSULE 200 MG PO ×2 (09:08→20:03)
[2023-01-21] MEDS: Insulin Glargine,Hum.rec.anlog 100 UNIT/ML 10 ML VIAL 15 UNIT SUBCUT (09:12)
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
[2023-01-21 18:00] VITALS: BP 124/60; PULSE 101; RESP 17; TEMP 36.6; O2SAT 97
[2023-01-21] MEDS: Mirtazapine 7.5 MG TABLET PO (20:02)
[2023-01-21] MEDS: Zolpidem Tartrate 5 MG TABLET PO (20:03)
[2023-01-21] MEDS: traZODone HCL 100 MG TABLET PO (20:03)
[2023-01-22 08:12] LABS: MANUAL DIFF FLAG NO
[2023-01-22 08:18] LABS: Basophils Percent Auto 0.3 % (0-2); Eosinophils Absolute Auto 0.9 X10*3/uL (0.0-0.4); Eosinophils Percent Auto 13.2 % (0-4); Hematocrit 32.1 % (37.0-47.0); Hemoglobin 10.3 g/dl (12.0-16.0); Imm Gran Abs Auto 0.01 X10*3/uL (0.00-0.03); Imm Gran Pct Auto 0.2 % (0.0-0.4); Lymphocytes Absolute Auto 1.9 X10*3/uL (1.2-4.9); Lymphocytes Percent Auto 29.3 % (20-40); Mean Corpuscular HGB Conc 32.1 g/dl (31.0-35.0); Mean Corpuscular Hemoglobin 27.9 pg (27.0-33.0); Mean Platelet Volume 10.1 fL (9.4-12.3); Monocytes Absolute Auto 0.6 X10*3/uL (0.1-1.2); Monocytes Percent Auto 8.8 % (2-11); Neutrophils Absolute Auto 3.2 x10*3/uL (2.0-8.3); Neutrophils Percent Auto 48.2 % (45-73); Platelet Count 203 X10*3/uL (160-400); Red Blood Count 3.69 X10*6/uL (4.20-5.50); Red Cell Distribution Width 15.2 % (11.0-16.0); White Blood Count 6.6 X10*3/uL (4.8-10.8)
[2023-01-22 08:40] VITALS: BP 130/66; PULSE 98; RESP 20; TEMP 36.8; O2SAT 97
[2023-01-22] MEDS: Docusate Sodium 100 MG CAPSULE PO ×2 (08:43→20:28)
[2023-01-22] MEDS: Atorvastatin Calcium 20 MG TABLET PO (08:43)
[2023-01-22] MEDS: Clopidogrel Bisulfate 75 MG TABLET PO (08:44)
[2023-01-22] MEDS: risperiDONE 1 MG TABLET PO ×3 (08:44→20:28)
[2023-01-22] MEDS: lisinopriL 20 MG TABLET PO (08:45)
[2023-01-22] MEDS: Sertraline HCL 50 MG TABLET PO (08:45)
[2023-01-22] MEDS: guaiFENesin LA 600 MG TAB.ER.12H PO ×2 (08:45→20:27)
[2023-01-22] MEDS: Gabapentin 100 MG CAPSULE 200 MG PO ×2 (08:45→20:27)
[2023-01-22] MEDS: Ondansetron ODT 4 MG TAB.RAPDIS TRANSLINGU ×4 (08:46→20:27)
[2023-01-22] MEDS: Insulin Glargine,Hum.rec.anlog 100 UNIT/ML 10 ML VIAL 15 UNIT SUBCUT (08:48)
[2023-01-22 08:57] LABS: Alanine Aminotransferase 28 U/L (0-31); Albumin Level 3.5 g/dL (3.5-5.0); Alkaline Phosphatase 63 U/L (39-117); Anion Gap 11 (12-20); Aspartate Amino Transferase 34 U/L (5-31); Bilirubin Direct 0.1 mg/dL (0.0-0.5); Bilirubin Total 0.3 mg/dL (0.0-1.0); Blood Urea Nitrogen 12 mg/dL (9-16); Carbon Dioxide 29 mmol/L (22-29); Chloride 104 mmol/L (96-108); Cholesterol 116 mg/dL (<200); Estimated Glomerular Filt Rate > 60; Glucose Random 135 mg/dL (60-115); HDL Cholesterol 32 mg/dL (>40); LDL Cholesterol Calculated 71 mg/dL (<100); Potassium 4.4 mmol/L (3.3-5.1); Sodium 140 mmol/L (135-145); Total Protein 6.1 g/dL (6.5-8.0); Triglycerides 68 mg/dL (<150)
[2023-01-22 09:11] LABS: Thyroid Stimulating Hormone 0.57 uIU/mL (0.32-4.0)
[2023-01-22 09:27] LABS: Glucose, Whole Blood 136 mg/dL (60-115)
[2023-01-22 12:03] LABS: Estimated Average Glucose 166 mg/dL; Hemoglobin A1c % 7.4 % (<6.0)
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
[2023-01-22 18:00] VITALS: BP 172/79; PULSE 103; RESP 18; TEMP 36.3; O2SAT 95
[2023-01-22] MEDS: Mirtazapine 7.5 MG TABLET PO (20:27)
[2023-01-22] MEDS: Zolpidem Tartrate 5 MG TABLET PO (20:27)
[2023-01-22] MEDS: traZODone HCL 100 MG TABLET PO (20:27)
[2023-01-22 22:22] LABS: Appearance Urine Clear; Color Urine Yellow; Glucose Urine UA Negative (Negative); Leukocyte Esterase Urine Negative (Negative); Nitrite Urine Negative (Negative); PH 7.5 (5.0-9.0); Specific Gravity - Urine <= 1.005 (1.005-1.025); Urine Blood Negative (Negative); Urine Ketones Negative (Negative); Urine Protein Negative (Neg-Trace)
[2023-01-22 22:35] LABS: Bacteria Urine None Seen (None Seen); Hyaline Casts Urine 0-2 /LPF (0-2); RBC Urine 0-2 /HPF (0-2); Squamous Epithelial Cell Urine 0-2 /HPF (0-2); WBC Urine 0-5 /HPF (0-5)
[2023-01-23 08:20] VITALS: BP 107/62; PULSE 98; RESP 20; TEMP 36.2; O2SAT 97
[2023-01-23] MEDS: Insulin Glargine,Hum.rec.anlog 100 UNIT/ML 10 ML VIAL 15 UNIT SUBCUT (08:22)
[2023-01-23] MEDS: Docusate Sodium 100 MG CAPSULE PO ×2 (08:23→20:00)
[2023-01-23] MEDS: guaiFENesin LA 600 MG TAB.ER.12H PO ×2 (08:24→20:01)
[2023-01-23] MEDS: lisinopriL 20 MG TABLET PO (08:24)
[2023-01-23] MEDS: Atorvastatin Calcium 20 MG TABLET PO (08:24)
[2023-01-23] MEDS: Clopidogrel Bisulfate 75 MG TABLET PO (08:24)
[2023-01-23] MEDS: Gabapentin 100 MG CAPSULE 200 MG PO ×3 (08:24→20:00)
[2023-01-23] MEDS: Ondansetron ODT 4 MG TAB.RAPDIS TRANSLINGU ×4 (08:25→20:00)
[2023-01-23] MEDS: Memantine HCl 5 MG TABLET PO (08:25)
[2023-01-23] MEDS: risperiDONE 1 MG TABLET PO ×3 (08:25→20:00)
[2023-01-23] MEDS: Sertraline HCL 50 MG TABLET PO (08:25)
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
[2023-01-23 18:00] VITALS: BP 119/53; PULSE 84; RESP 17; TEMP 36.6; O2SAT 98
[2023-01-23] MEDS: traZODone HCL 100 MG TABLET PO (20:00)
[2023-01-23] MEDS: Zolpidem Tartrate 5 MG TABLET PO (20:00)
[2023-01-23] MEDS: Mirtazapine 7.5 MG TABLET PO (20:00)
[2023-01-23] MEDS: traZODone HCL 25 MG HALFTAB PO ×2 (20:00→23:07)
[2023-01-24] MEDS: Acetaminophen 325 MG TABLET 650 MG PO ×2 (05:20→21:04)
[2023-01-24 10:30] VITALS: BP 154/112; PULSE 75; RESP 18; TEMP 36.3; O2SAT 100
[2023-01-24] MEDS: Memantine HCl 5 MG TABLET PO (10:50)
[2023-01-24] MEDS: Sertraline HCL 25 MG TABLET PO (10:50)
[2023-01-24] MEDS: Clopidogrel Bisulfate 75 MG TABLET PO (10:50)
[2023-01-24] MEDS: guaiFENesin LA 600 MG TAB.ER.12H PO ×2 (10:50→21:06)
[2023-01-24] MEDS: lisinopriL 20 MG TABLET PO (10:50)
[2023-01-24] MEDS: Gabapentin 100 MG CAPSULE 200 MG PO ×3 (10:51→21:04)
[2023-01-24] MEDS: Ondansetron ODT 4 MG TAB.RAPDIS TRANSLINGU ×4 (10:51→21:06)
[2023-01-24] MEDS: Docusate Sodium 100 MG CAPSULE PO ×2 (10:51→21:03)
[2023-01-24] MEDS: Insulin Glargine,Hum.rec.anlog 100 UNIT/ML 10 ML VIAL 15 UNIT SUBCUT (11:07)
[2023-01-24] MEDS: Atorvastatin Calcium 20 MG TABLET PO (11:07)
[2023-01-24] MEDS: risperiDONE 1 MG TABLET PO ×3 (11:09→21:06)
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
[2023-01-24 18:00] VITALS: BP 153/70; PULSE 77; RESP 18; TEMP 36.2; O2SAT 99
[2023-01-24] MEDS: Zolpidem Tartrate 5 MG TABLET PO (21:04)
[2023-01-24] MEDS: Mirtazapine 7.5 MG TABLET PO (21:06)
[2023-01-24] MEDS: traZODone HCL 50 MG TABLET 150 MG PO (21:07)
[2023-01-25 09:45] VITALS: BP 162/93; PULSE 98; RESP 16; TEMP 36.4; O2SAT 98
[2023-01-25] MEDS: risperiDONE 1 MG TABLET PO ×3 (10:18→20:25)
[2023-01-25] MEDS: Clopidogrel Bisulfate 75 MG TABLET PO (10:18)
[2023-01-25] MEDS: Sertraline HCL 25 MG TABLET PO (10:19)
[2023-01-25] MEDS: Ondansetron ODT 4 MG TAB.RAPDIS TRANSLINGU ×3 (10:19→15:57)
[2023-01-25] MEDS: Docusate Sodium 100 MG CAPSULE PO (10:19)
[2023-01-25] MEDS: lisinopriL 20 MG TABLET PO (10:19)
[2023-01-25] MEDS: Gabapentin 100 MG CAPSULE 200 MG PO ×3 (10:19→20:26)
[2023-01-25] MEDS: Memantine HCl 5 MG TABLET PO (10:19)
[2023-01-25] MEDS: Atorvastatin Calcium 20 MG TABLET PO (10:19)
[2023-01-25] MEDS: guaiFENesin LA 600 MG TAB.ER.12H PO (10:19)
[2023-01-25] MEDS: Insulin Glargine,Hum.rec.anlog 100 UNIT/ML 10 ML VIAL 15 UNIT SUBCUT (10:20)
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
[2023-01-25] MEDS: lisinopriL 10 MG TABLET PO (12:02)
[2023-01-25] MEDS: OLANZapine 5 MG TABLET PO (15:57)
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
[2023-01-25] MEDS: OLANZapine 10 MG VIAL 5 MG IM (16:33)
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
[2023-01-25 18:00] VITALS: RESP 18
[2023-01-25] MEDS: traZODone HCL 50 MG TABLET 150 MG PO (20:27)
[2023-01-25] MEDS: Mirtazapine 7.5 MG TABLET PO (20:27)
[2023-01-25] MEDS: Zolpidem Tartrate 5 MG TABLET PO (20:28)
[2023-01-26] MEDS: Acetaminophen 325 MG TABLET 650 MG PO (02:10)
[2023-01-26 06:00] VITALS: BP 139/84; PULSE 89; TEMP 36.6; O2SAT 99
[2023-01-26] MEDS: lisinopriL 10 MG TABLET 30 MG PO (08:39)
[2023-01-26] MEDS: Docusate Sodium 100 MG CAPSULE PO ×2 (08:39→20:01)
[2023-01-26] MEDS: risperiDONE 1 MG TABLET PO ×3 (08:39→19:59)
[2023-01-26] MEDS: Atorvastatin Calcium 20 MG TABLET PO (08:39)
[2023-01-26] MEDS: Clopidogrel Bisulfate 75 MG TABLET PO (08:39)
[2023-01-26] MEDS: Gabapentin 100 MG CAPSULE 200 MG PO ×3 (08:39→20:00)
[2023-01-26] MEDS: Sertraline HCL 25 MG TABLET PO (08:40)
[2023-01-26] MEDS: Memantine HCl 5 MG TABLET PO (08:40)
[2023-01-26] MEDS: Ondansetron ODT 4 MG TAB.RAPDIS TRANSLINGU ×3 (08:40→19:59)
[2023-01-26] MEDS: guaiFENesin LA 600 MG TAB.ER.12H PO ×2 (08:40→19:59)
[2023-01-26] MEDS: Insulin Glargine,Hum.rec.anlog 100 UNIT/ML 10 ML VIAL 15 UNIT SUBCUT (08:44)
[2023-01-26 09:19] LABS: Glucose, Whole Blood 169 mg/dL (60-115)
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
[2023-01-26 18:00] VITALS: BP 132/76; PULSE 89; RESP 18; TEMP 36.1; O2SAT 99
[2023-01-26] MEDS: traZODone HCL 50 MG TABLET 150 MG PO (19:58)
[2023-01-26] MEDS: Mirtazapine 7.5 MG TABLET PO (20:01)
[2023-01-27] MEDS: Memantine HCl 5 MG TABLET PO (08:14)
[2023-01-27] MEDS: Gabapentin 100 MG CAPSULE 200 MG PO ×3 (08:14→21:26)
[2023-01-27] MEDS: Docusate Sodium 100 MG CAPSULE PO ×2 (08:14→21:27)
[2023-01-27] MEDS: Atorvastatin Calcium 20 MG TABLET PO (08:14)
[2023-01-27] MEDS: Clopidogrel Bisulfate 75 MG TABLET PO (08:14)
[2023-01-27] MEDS: guaiFENesin LA 600 MG TAB.ER.12H PO ×2 (08:14→21:27)
[2023-01-27] MEDS: Sertraline HCL 25 MG TABLET PO (08:15)
[2023-01-27] MEDS: Ondansetron ODT 4 MG TAB.RAPDIS TRANSLINGU ×3 (08:15→21:27)
[2023-01-27] MEDS: risperiDONE 1 MG TABLET PO ×2 (08:15→14:02)
[2023-01-27] MEDS: Insulin Glargine,Hum.rec.anlog 100 UNIT/ML 10 ML VIAL 15 UNIT SUBCUT (08:15)
[2023-01-27 08:20] VITALS: RESP 20
--- NOTE | 2023-01-27 08:24 | PC.NURSE ---
Refused vital signs so morning Lisinopril held. Dr. Gonzalez notified.
[2023-01-27] MEDS: OLANZapine ODT 10 MG TAB.RAPDIS TRANSLINGU ×3 (08:39→11:20)
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
[2023-01-27 18:00] VITALS: BP 152/83; PULSE 93; RESP 18; TEMP 36.3; O2SAT 99
[2023-01-27] MEDS: Milk of Magnesia 30 ML ORAL.SUSP PO (18:07)
[2023-01-27] MEDS: traZODone HCL 50 MG TABLET PO (18:22)
[2023-01-27] MEDS: Mirtazapine 7.5 MG TABLET PO (21:27)
[2023-01-27] MEDS: traZODone HCL 50 MG TABLET 150 MG PO (21:27)
[2023-01-27] MEDS: risperiDONE 2 MG TABLET PO (21:27)
[2023-01-27] MEDS: Acetaminophen 325 MG TABLET 650 MG PO (21:28)
[2023-01-27] MEDS: traZODone HCL 25 MG HALFTAB PO (23:27)
[2023-01-28] MEDS: traZODone HCL 25 MG HALFTAB PO ×3 (00:34→23:10)
[2023-01-28 01:54] LABS: Glucose, Whole Blood 179 mg/dL (60-115)
[2023-01-28 02:08] VITALS: BP 160/72; PULSE 75; RESP 18; TEMP 36.1; O2SAT 98
--- NOTE | 2023-01-28 02:25 | PM.EVENT ---
Event Note Date of Service: 01/28/23 Event Note: reported chest pain of sudden onset seems reproducible to check EKG and Trop Time Spent With Patient Time: Total time managing care of this patient today ____ minutes.
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
--- NOTE | 2023-01-28 04:02 | PC.NURSE ---
Patient complained of mild chest pain at 0200. Vitals BP160/72 P75 T97 R18 O2 98%. machine scallop cutter hospitalist Ozzy Paez notified. Stat EKG and troponin I ordered, patient refused both procedures. Currently in bed resting, appears comfortable, will continue to monitor.
[2023-01-28 06:00] VITALS: BP 127/73; PULSE 98; RESP 18; TEMP 36.2; O2SAT 98
--- NOTE | 2023-01-28 09:17 | PC.NURSE ---
Addendum entered by Nlida Gunter RN 01/28/23 09:18: Patient did not receive flu vaccine due to allergy. Original Note: Patient did not receive fluva==
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
[2023-01-28] MEDS: lisinopriL 10 MG TABLET 30 MG PO (13:23)
[2023-01-28] MEDS: guaiFENesin LA 600 MG TAB.ER.12H PO ×2 (13:24→21:34)
[2023-01-28] MEDS: risperiDONE 1 MG TABLET PO ×2 (13:24→16:27)
[2023-01-28] MEDS: Memantine HCl 5 MG TABLET PO (13:24)
[2023-01-28] MEDS: Atorvastatin Calcium 20 MG TABLET PO (13:25)
[2023-01-28] MEDS: Clopidogrel Bisulfate 75 MG TABLET PO (13:25)
[2023-01-28] MEDS: Insulin Glargine,Hum.rec.anlog 100 UNIT/ML 10 ML VIAL 15 UNIT SUBCUT (13:26)
[2023-01-28] MEDS: Ondansetron ODT 4 MG TAB.RAPDIS TRANSLINGU ×4 (13:27→21:40)
[2023-01-28] MEDS: Sertraline HCL 25 MG TABLET PO (13:27)
[2023-01-28] MEDS: Docusate Sodium 100 MG CAPSULE PO ×2 (13:28→21:34)
[2023-01-28] MEDS: Gabapentin 300 MG CAPSULE PO ×2 (13:48→21:34)
[2023-01-28] MEDS: OLANZapine ODT 10 MG TAB.RAPDIS TRANSLINGU (16:27)
[2023-01-28 18:00] VITALS: BP 124/63; PULSE 78; RESP 16; TEMP 37.1; O2SAT 97
[2023-01-28] MEDS: risperiDONE 2 MG TABLET PO (21:34)
[2023-01-28] MEDS: Mirtazapine 7.5 MG TABLET PO (21:34)
[2023-01-28] MEDS: traZODone HCL 50 MG TABLET 150 MG PO (21:35)
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
[2023-01-29 11:49] VITALS: BP 120/90; PULSE 95; RESP 16; O2SAT 99
[2023-01-29 11:53] LABS: Glucose, Whole Blood 142 mg/dL (60-115)
[2023-01-29] MEDS: Atorvastatin Calcium 20 MG TABLET PO (11:55)
[2023-01-29] MEDS: guaiFENesin LA 600 MG TAB.ER.12H PO ×2 (11:55→20:44)
[2023-01-29] MEDS: Insulin Glargine,Hum.rec.anlog 100 UNIT/ML 10 ML VIAL 15 UNIT SUBCUT (11:55)
[2023-01-29] MEDS: lisinopriL 10 MG TABLET 30 MG PO (11:55)
[2023-01-29] MEDS: Sertraline HCL 25 MG TABLET PO (11:56)
[2023-01-29] MEDS: Docusate Sodium 100 MG CAPSULE PO ×2 (11:56→20:44)
[2023-01-29] MEDS: Memantine HCl 5 MG TABLET PO (11:56)
[2023-01-29] MEDS: Clopidogrel Bisulfate 75 MG TABLET PO (11:56)
[2023-01-29] MEDS: Ondansetron ODT 4 MG TAB.RAPDIS TRANSLINGU ×2 (11:56→20:44)
[2023-01-29] MEDS: OLANZapine 2.5 MG TABLET PO ×2 (11:56→11:57)
[2023-01-29] MEDS: Gabapentin 300 MG CAPSULE PO ×2 (11:56→20:43)
[2023-01-29] MEDS: OLANZapine ODT 10 MG TAB.RAPDIS TRANSLINGU (12:45)
[2023-01-29 18:00] VITALS: BP 183/81; PULSE 80; RESP 16; TEMP 36; O2SAT 97
[2023-01-29 20:21] LABS: Glucose, Whole Blood 107 mg/dL (60-115)
[2023-01-29] MEDS: traZODone HCL 50 MG TABLET 150 MG PO (20:43)
[2023-01-29] MEDS: Mirtazapine 7.5 MG TABLET PO (20:43)
[2023-01-29] MEDS: OLANZapine 5 MG TABLET PO (20:44)
[2023-01-30 11:52] VITALS: BP 140/66; PULSE 101; RESP 18; TEMP 36.1; O2SAT 99
[2023-01-30] MEDS: Gabapentin 300 MG CAPSULE PO (12:03)
[2023-01-30] MEDS: Sertraline HCL 25 MG TABLET PO (12:03)
[2023-01-30] MEDS: Memantine HCl 5 MG TABLET PO (12:03)
[2023-01-30] MEDS: Ondansetron ODT 4 MG TAB.RAPDIS TRANSLINGU ×3 (12:03→19:58)
[2023-01-30] MEDS: Docusate Sodium 100 MG CAPSULE PO ×2 (12:04→19:58)
[2023-01-30] MEDS: Clopidogrel Bisulfate 75 MG TABLET PO (12:05)
[2023-01-30] MEDS: lisinopriL 10 MG TABLET 30 MG PO (12:05)
[2023-01-30] MEDS: guaiFENesin LA 600 MG TAB.ER.12H PO ×2 (12:05→19:58)
[2023-01-30] MEDS: Insulin Glargine,Hum.rec.anlog 100 UNIT/ML 10 ML VIAL 15 UNIT SUBCUT (12:06)
--- NOTE | 2023-01-30 13:48 | HO.PSYCHPN ---
Subjective Subjective Date of Service: 01/30/23 Reason For Visit: Major Depressive D/o, w/ psychotic features Subjective Notes: Conditional Voluntary Interim History: The nursing staff reported the patient had been medication and meal compliant. She slept poorly last night but she refused his point of care. She remains confused, one-to-one for safety. On interview the patient denies new symptoms she is superficially engageable and pleasant at times. We will keep on the same medications. Mental Status Exam Mental Status Exam Patient Appearance: Appropriate Patient Orientation: Person and Situation Level of Consciousness: Awake and Appropriate Patient Behavior: Guarded and Passive Mood Description: Withdrawn Affect Description: Constricted Patient Cognition Impaired: Yes Ability to Follow Directions: Good Speech Pattern: Clear Hallucinations: None Delusions: Paranoid Ideation Thought Process: Distracted, Evasive and Slowed Thinking Thought Content: positive for [place] and positive for Poverty of Content Judgement: Fair Diagnostics Vital Signs (24Hr): Vital Signs - 24 hr 01/29/23 18:00 01/30/23 11:52 Temperature 96.8 F 97 F Pulse Rate 80 101 H Respiratory Rate 16 18 Blood Pressure 183/81 H 140/66 H Pulse Oximetry 97 99 Oxygen Delivery Method Room Air Room Air Labs 01/22/23 08:03 01/22/23 08:03 Labs: Laboratory Results - last 48 hr 01/29/23 01/29/23 01/30/23 11:43 20:12 11:32 POC Glucose 142 H 107 110 Medications Medications Current Medications Acetaminophen (Acetaminophen 325 Mg Tablet) 650 mg PO Q6H PRN PRN Reason: Headache/Pain Mild Scale (1-3) Last Admin: 01/27/23 21:28 Dose: 650 mg Al Hydroxide/Mg Hydroxide (Magnesium Hydrox/Alum Hydrox 30 Ml Oral.Susp) 30 ml PO Q6H PRN PRN Reason: Heartburn/Nausea Last Admin: 01/20/23 14:58 Dose: 30 ml Atorvastatin Calcium (Atorvastatin Calcium 20 Mg Tablet) 20 mg PO DAILY [facility] Last Admin: 01/30/23 12:05 Dose: 20 mg Clopidogrel Bisulfate (Clopidogrel Bisulfate 75 Mg Tablet) 75 mg PO DAILY [facility] Last Admin: 01/30/23 12:05 Dose: 75 mg Docusate Sodium (Docusate Sodium 100 Mg Capsule) 100 mg PO BID [facility] Last Admin: 01/30/23 12:04 Dose: 100 mg Gabapentin (Gabapentin 300 Mg Capsule) 300 mg PO TID [facility] Last Admin: 01/30/23 12:03 Dose: 300 mg Guaifenesin (Guaifenesin La 600 Mg Tab.Er.12h) 600 mg PO BID [facility] Last Admin: 01/30/23 12:05 Dose: 600 mg Insulin Glargine (Insulin Glargine,Hum.Rec.Anlog 100 Unit/Ml 10 Ml Vial) 15 unit SUBCUT DAILY [facility] Last Admin: 01/30/23 12:06 Dose: 15 unit Lisinopril (Lisinopril 10 Mg Tablet) 30 mg PO DAILY [facility] Last Admin: 01/30/23 12:05 Dose: 30 mg Magnesium Hydroxide (Milk Of Magnesia 30 Ml Oral.Susp) 30 ml PO DAILY PRN PRN Reason: Constipation Last Admin: 01/27/23 18:07 Dose: 30 ml Memantine (Memantine Hcl 5 Mg Tablet) 5 mg PO DAILY [facility] Last Admin: 01/30/23 12:03 Dose: 5 mg Mirtazapine (Mirtazapine 7.5 Mg Tablet) 7.5 mg PO BEDTIME [facility] Last Admin: 01/29/23 20:43 Dose: 7.5 mg Olanzapine (Olanzapine 2.5 Mg Tablet) 2.5 mg PO DAILY [facility] Last Admin: 01/30/23 12:05 Dose: 2.5 mg Olanzapine (Olanzapine 5 Mg Tablet) 5 mg PO BEDTIME [facility] Last Admin: 01/29/23 20:44 Dose: 5 mg Olanzapine (Olanzapine Odt 10 Mg Tab.Rapdis) 5 mg TRANSLINGU BID PRN PRN Reason: Psychosis Ondansetron HCl (Ondansetron Odt 4 Mg Tab.Rapdis) 4 mg TRANSLINGU QID [facility] Last Admin: 01/30/23 12:09 Dose: Not Given Sertraline HCl (Sertraline Hcl 25 Mg Tablet) 25 mg PO DAILY [facility] Last Admin: 01/30/23 12:03 Dose: 25 mg Trazodone HCl (Trazodone Hcl 25 Mg Halftab) 25 mg PO BEDTIME MRX1 PRN PRN Reason: Insomnia Last Admin: 01/28/23 23:10 Dose: 25 mg Trazodone HCl (Trazodone Hcl 50 Mg Tablet) 150 mg PO BEDTIME [facility] Last Admin: 01/29/23 20:43 Dose: 150 mg Trazodone HCl (Trazodone Hcl 25 Mg Halftab) 25 mg PO BID PRN PRN Reason: Agitation Allergies Allergies Allergy/AdvReac Type Severity Reaction Status Date / Time aspirin Allergy Unknown Verified 01/15/23 18:02 egg Allergy Unknown Verified 01/15/23 18:02 Fish Containing Products Allergy Unknown Verified 01/15/23 18:02 ibuprofen Allergy Unknown Verified 01/15/23 18:02 Influenza Virus Vaccines Allergy Unknown Verified 01/15/23 18:02 iodine Allergy Unknown Verified 01/15/23 18:02 latex Allergy Unknown Verified 01/15/23 18:02 Penicillins Allergy Unknown Verified 01/15/23 18:02 Tetanus Vaccines and Toxoid Allergy Unknown Verified 01/15/23 18:02 tomato Allergy Unknown Verified 01/15/23 18:02 Assessment & Plan Assessment & Plan (1) Medical clearance for psychiatric admission: Status: Acute Code(s): Z00.8 - Encounter for other general examination Plan Pt is a Montenegrin-speaking 72-year-old female with a PMH significant for?dementia unspecified, hx of CVA, HLD, HTN, insulin-dependent diabetes type 2, and MDD with psychotic features who is admitted to [facility] for aggressive behavior and hearing voices. Patient lives with her son who states she is becoming increasingly unmanageable at home: Has been tearing up pictures, breaking glass, hitting him in the face, and been non compliant with her medications by spitting them out. Medical consult for admission H&P. Mood disorder Plan as per Psychiatry HLD/ hx of CVA Continue statin, Plavix HTN Acceptable BP control on current therapies Continue home meds Insulin-dependent type 2 diabetes SSI, Lantus, diabetic diet Abnormal CTA findings CTA at [facility] on 01/17/2023 phone possible colonic mucosal lesion at the splenic flexure versus artifact of under distention Suggestion is for direct visualization with colonoscopy unless one has been done recently Follow-up outpatient with PCP Plan 1. Gather collateral information. 2. Continue with Risperdal as prescribed. On January 19 we increased Risperdal to 1 mg p.o. t.i.d. 3. Reassessment results 4. Trazodone is increased up to 100 mg p.o. q.h.s. in January 19. No improvement of poor sleep. We are going to add a low dose of Ambien at night. The patient finally slept with a combination of trazodone and Ambien. No evidence of delirium or over-sedation. 5. Lower Zoloft of 25 mg daily, probably 50 mg it is over stimulating the patient. 6. Increase gabapentin up to 200 mg p.o. t.i.d. to target anxiety and mood lability on January 23. January 28 we increased gabapentin up to 300 mg p.o. t.i.d. 7. Increase trazodone up to 150 mg p.o. q.h.s. on January 24 to target insomnia 8. Risperdal had been increased January 27 up to 1 mg p.o. b.i.d. and 2 mg p.o. q.h.s. since the patient still agitated at times and psychotic. January 29, we realized that Risperdal has not been working. So we decided to change to Zyprexa 25 mg p.o. q.a.m. and 5 mg p.o. q.h.s. January 29 Reason for continued inpatient stay Substantial Risk for: inability to function, rapid decompensation and med/psych decompensation Time Spent With Patient Time: Total time managing care of this patient today __20__ minutes.
--- NOTE | 2023-01-30 14:48 | PC.NURSE ---
This nurse was notified by staff that the patient was trying to throw herself on the floor, yelling out and being resistive to help by staff. She was yelling out and clapping loudly in her room. She was medicated with Zyprexa 5mg PO at 1420, effect pending. This check writer toileted patient, walked with patient , too her outside for a few minutes and then helped her to bed. Patient said, Everybody hates me , when asked by this check writer what was wrong.
[2023-01-30 19:35] VITALS: BP 158/86; PULSE 93; RESP 16; TEMP 36.4; O2SAT 100
[2023-01-30] MEDS: traZODone HCL 50 MG TABLET 150 MG PO (19:57)
[2023-01-30] MEDS: Mirtazapine 7.5 MG TABLET PO (19:58)
[2023-01-31 07:40] VITALS: BP 141/72; PULSE 90; RESP 12; TEMP 36; O2SAT 93
[2023-01-31] MEDS: Memantine HCl 5 MG TABLET PO (08:12)
[2023-01-31] MEDS: Ondansetron ODT 4 MG TAB.RAPDIS TRANSLINGU (08:13)
[2023-01-31] MEDS: Sertraline HCL 25 MG TABLET PO (08:13)
[2023-01-31] MEDS: Docusate Sodium 100 MG CAPSULE PO (08:13)
[2023-01-31] MEDS: guaiFENesin LA 600 MG TAB.ER.12H PO (08:14)
[2023-01-31] MEDS: Insulin Glargine,Hum.rec.anlog 100 UNIT/ML 10 ML VIAL 15 UNIT SUBCUT (08:14)
[2023-01-31] MEDS: Clopidogrel Bisulfate 75 MG TABLET PO (08:14)
--- NOTE | 2023-01-31 14:01 | HO.PSYCHPN ---
Subjective Subjective Date of Service: 01/31/23 Reason For Visit: Major Depressive D/o, w/ psychotic features Subjective Notes: Conditional Voluntary Interim History: Pt continues with one to one due to fall risk. 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 Pt not oriented to place or situation. She is pleasant on approach at time of interview but throughout the day she has periods of agitation in setting of confusion and needing redirection. Medication Compliance: Yes Review of Systems Review of Systems Pt denies any pain. No SOB. Mental Status Exam Mental Status Exam Patient Appearance: Appropriate Patient Orientation: Person Level of Consciousness: Awake and Appropriate Patient Behavior: Guarded and Passive Mood Description: Withdrawn Affect Description: Constricted Patient Cognition Impaired: Yes Ability to Follow Directions: Good Speech Pattern: Clear Diagnostics Vital Signs (24Hr): Vital Signs - 24 hr 01/30/23 19:35 01/31/23 07:40 Temperature 97.6 F 96.8 F Pulse Rate 93 90 Respiratory Rate 16 12 Blood Pressure 158/86 H 141/72 H Pulse Oximetry 100 93 Oxygen Delivery Method Room Air Room Air Labs 01/22/23 08:03 01/22/23 08:03 Labs: Laboratory Results - last 48 hr 01/29/23 01/30/23 01/30/23 20:12 11:32 20:00 POC Glucose 107 110 181 H 01/31/23 06:19 POC Glucose 147 H Medications Medications Current Medications Acetaminophen (Acetaminophen 325 Mg Tablet) 650 mg PO Q6H PRN PRN Reason: Headache/Pain Mild Scale (1-3) Last Admin: 01/31/23 01:15 Dose: 650 mg Al Hydroxide/Mg Hydroxide (Magnesium Hydrox/Alum Hydrox 30 Ml Oral.Susp) 30 ml PO Q6H PRN PRN Reason: Heartburn/Nausea Last Admin: 01/20/23 14:58 Dose: 30 ml Atorvastatin Calcium (Atorvastatin Calcium 20 Mg Tablet) 20 mg PO DAILY [facility] Last Admin: 01/31/23 08:12 Dose: 20 mg Clopidogrel Bisulfate (Clopidogrel Bisulfate 75 Mg Tablet) 75 mg PO DAILY [facility] Last Admin: 01/31/23 08:14 Dose: 75 mg Gabapentin (Gabapentin 300 Mg Capsule) 300 mg PO TID [facility] Last Admin: 01/31/23 08:12 Dose: 300 mg Insulin Glargine (Insulin Glargine,Hum.Rec.Anlog 100 Unit/Ml 10 Ml Vial) 15 unit SUBCUT DAILY [facility] Last Admin: 01/31/23 08:14 Dose: 15 unit Lisinopril (Lisinopril 10 Mg Tablet) 30 mg PO DAILY [facility] Last Admin: 01/31/23 08:12 Dose: 30 mg Magnesium Hydroxide (Milk Of Magnesia 30 Ml Oral.Susp) 30 ml PO DAILY PRN PRN Reason: Constipation Last Admin: 01/30/23 21:31 Dose: 30 ml Memantine (Memantine Hcl 5 Mg Tablet) 5 mg PO DAILY [facility] Last Admin: 01/31/23 08:12 Dose: 5 mg Mirtazapine (Mirtazapine 7.5 Mg Tablet) 7.5 mg PO BEDTIME [facility] Last Admin: 01/30/23 19:58 Dose: 7.5 mg Olanzapine (Olanzapine 2.5 Mg Tablet) 2.5 mg PO DAILY [facility] Last Admin: 01/31/23 08:14 Dose: 2.5 mg Olanzapine (Olanzapine 5 Mg Tablet) 5 mg PO BEDTIME [facility] Last Admin: 01/30/23 19:58 Dose: 5 mg Olanzapine (Olanzapine Odt 10 Mg Tab.Rapdis) 5 mg TRANSLINGU BID PRN PRN Reason: Psychosis Last Admin: 01/31/23 13:38 Dose: 5 mg Omeprazole (Omeprazole 20 Mg Capsule.Dr) 20 mg PO DAILY@0700 [facility] Senna/Docusate Sodium (Sennosides/Docusate Sodium Tablet) 1 tab PO BID [facility] Last Admin: 01/31/23 11:58 Dose: 1 tab Sertraline HCl (Sertraline Hcl 25 Mg Tablet) 25 mg PO DAILY [facility] Last Admin: 01/31/23 08:13 Dose: 25 mg Trazodone HCl (Trazodone Hcl 25 Mg Halftab) 25 mg PO BEDTIME MRX1 PRN PRN Reason: Insomnia Last Admin: 01/31/23 01:15 Dose: 25 mg Trazodone HCl (Trazodone Hcl 50 Mg Tablet) 150 mg PO BEDTIME [facility] Last Admin: 01/30/23 19:57 Dose: 150 mg Trazodone HCl (Trazodone Hcl 25 Mg Halftab) 25 mg PO BID PRN PRN Reason: Agitation Last Admin: 01/31/23 13:37 Dose: 25 mg Allergies Allergies Allergy/AdvReac Type Severity Reaction Status Date / Time aspirin Allergy Unknown Verified 01/15/23 18:02 egg Allergy Unknown Verified 01/15/23 18:02 Fish Containing Products Allergy Unknown Verified 01/15/23 18:02 ibuprofen Allergy Unknown Verified 01/15/23 18:02 Influenza Virus Vaccines Allergy Unknown Verified 01/15/23 18:02 iodine Allergy Unknown Verified 01/15/23 18:02 latex Allergy Unknown Verified 01/15/23 18:02 Penicillins Allergy Unknown Verified 01/15/23 18:02 Tetanus Vaccines and Toxoid Allergy Unknown Verified 01/15/23 18:02 tomato Allergy Unknown Verified 01/15/23 18:02 Assessment & Plan Assessment & Plan (1) Neurodegenerative cognitive impairment: Status: Acute Code(s): G31.9 - Degenerative disease of nervous system, unspecified Plan Pt is a Kazakh-speaking 72-year-old female with a PMH significant for?dementia unspecified, hx of CVA, HLD, HTN, insulin-dependent diabetes type 2, and MDD with psychotic features who is admitted to [facility] for aggressive behavior and hearing voices. Patient lives with her son who states she is becoming increasingly unmanageable at home: Has been tearing up pictures, breaking glass, hitting him in the face, and been non compliant with her medications by spitting them out. Medical consult for admission H&P. Mood disorder Plan as per Psychiatry HLD/ hx of CVA Continue statin, Plavix HTN Acceptable BP control on current therapies Continue home meds Insulin-dependent type 2 diabetes SSI, Lantus, diabetic diet Abnormal CTA findings CTA at [facility] on 01/17/2023 phone possible colonic mucosal lesion at the splenic flexure versus artifact of under distention Suggestion is for direct visualization with colonoscopy unless one has been done recently Follow-up outpatient with PCP Plan 1. Gather collateral information. 2. Continue with Risperdal as prescribed. On January 19 we increased Risperdal to 1 mg p.o. t.i.d. 3. Reassessment results 4. Trazodone is increased up to 100 mg p.o. q.h.s. in January 19. No improvement of poor sleep. We are going to add a low dose of Ambien at night. The patient finally slept with a combination of trazodone and Ambien. No evidence of delirium or over-sedation. 5. Lower Zoloft of 25 mg daily, probably 50 mg it is over stimulating the patient. 6. Increase gabapentin up to 200 mg p.o. t.i.d. to target anxiety and mood lability on January 23. January 28 we increased gabapentin up to 300 mg p.o. t.i.d. 7. Increase trazodone up to 150 mg p.o. q.h.s. on January 24 to target insomnia 8. Risperdal had been increased January 27 up to 1 mg p.o. b.i.d. and 2 mg p.o. q.h.s. since the patient still agitated at times and psychotic. January 29, we realized that Risperdal has not been working. So we decided to change to Zyprexa 2.5 mg p.o. q.a.m. and 5 mg p.o. q.h.s. 01/31 continue tx. Reason for continued inpatient stay Substantial Risk for: inability to function Time Spent With Patient Time: Total time managing care of this patient today ____ minutes.
[2023-01-31 18:00] VITALS: BP 141/66; PULSE 90; RESP 18; TEMP 36.4; O2SAT 99
[2023-01-31] MEDS: traZODone HCL 50 MG TABLET 150 MG PO (20:35)
[2023-01-31] MEDS: Mirtazapine 7.5 MG TABLET PO (20:35)
[2023-02-01 07:42] VITALS: BP 120/56; PULSE 86; RESP 18; TEMP 36.2; O2SAT 96
[2023-02-01] MEDS: Memantine HCl 5 MG TABLET PO (07:50)
[2023-02-01] MEDS: Sertraline HCL 25 MG TABLET PO (07:50)
[2023-02-01] MEDS: Clopidogrel Bisulfate 75 MG TABLET PO (07:50)
[2023-02-01] MEDS: Insulin Glargine,Hum.rec.anlog 100 UNIT/ML 10 ML VIAL 15 UNIT SUBCUT (07:54)
--- NOTE | 2023-02-01 12:25 | HO.PSYCHPN ---
Subjective Subjective Date of Service: 02/01/23 Reason For Visit: Major Depressive D/o, w/ psychotic features Interim History: Patient seen in milieu. She received Trazodone as a prn due to swatting at staff and becoming agitated and it was helpful more so than the Zyprexa. The pt continues with one to one due to fall risk. Pt not oriented to place or situation. She is pleasant on approach at time of interview but throughout the day she has periods of agitation in setting of confusion and needing redirection. Review of Systems Review of Systems Pt denies any pain. No SOB. Mental Status Exam Mental Status Exam Narrative: sleeping soundly in her bed this morning. Patient Appearance: Appropriate Patient Orientation: Person Level of Consciousness: Awake and Appropriate Patient Behavior: Guarded and Passive Mood Description: Withdrawn Affect Description: Constricted Patient Cognition Impaired: Yes Ability to Follow Directions: Good Speech Pattern: Clear Diagnostics Vital Signs (24Hr): Vital Signs - 24 hr 01/31/23 18:00 02/01/23 07:42 Temperature 97.6 F 97.2 F Pulse Rate 90 86 Respiratory Rate 18 18 Blood Pressure 141/66 H 120/56 L Pulse Oximetry 99 96 Oxygen Delivery Method Room Air Room Air Labs 01/22/23 08:03 01/22/23 08:03 Labs: Laboratory Results - last 48 hr 01/30/23 01/31/23 20:00 06:19 POC Glucose 181 H 147 H Medications Medications Current Medications Acetaminophen (Acetaminophen 325 Mg Tablet) 650 mg PO Q6H PRN PRN Reason: Headache/Pain Mild Scale (1-3) Last Admin: 01/31/23 19:46 Dose: 650 mg Al Hydroxide/Mg Hydroxide (Magnesium Hydrox/Alum Hydrox 30 Ml Oral.Susp) 30 ml PO Q6H PRN PRN Reason: Heartburn/Nausea Last Admin: 01/20/23 14:58 Dose: 30 ml Atorvastatin Calcium (Atorvastatin Calcium 20 Mg Tablet) 20 mg PO DAILY [facility] Last Admin: 02/01/23 07:50 Dose: 20 mg Clopidogrel Bisulfate (Clopidogrel Bisulfate 75 Mg Tablet) 75 mg PO DAILY [facility] Last Admin: 02/01/23 07:50 Dose: 75 mg Gabapentin (Gabapentin 300 Mg Capsule) 300 mg PO TID [facility] Last Admin: 02/01/23 07:51 Dose: 300 mg Insulin Glargine (Insulin Glargine,Hum.Rec.Anlog 100 Unit/Ml 10 Ml Vial) 15 unit SUBCUT DAILY [facility] Last Admin: 02/01/23 07:54 Dose: 15 unit Lisinopril (Lisinopril 10 Mg Tablet) 30 mg PO DAILY [facility] Last Admin: 02/01/23 07:56 Dose: Not Given Magnesium Hydroxide (Milk Of Magnesia 30 Ml Oral.Susp) 30 ml PO DAILY PRN PRN Reason: Constipation Last Admin: 01/30/23 21:31 Dose: 30 ml Memantine (Memantine Hcl 5 Mg Tablet) 5 mg PO DAILY [facility] Last Admin: 02/01/23 07:50 Dose: 5 mg Mirtazapine (Mirtazapine 7.5 Mg Tablet) 7.5 mg PO BEDTIME [facility] Last Admin: 01/31/23 20:35 Dose: 7.5 mg Olanzapine (Olanzapine 2.5 Mg Tablet) 2.5 mg PO DAILY [facility] Last Admin: 02/01/23 07:51 Dose: 2.5 mg Olanzapine (Olanzapine 5 Mg Tablet) 5 mg PO BEDTIME [facility] Last Admin: 01/31/23 20:36 Dose: 5 mg Olanzapine (Olanzapine Odt 10 Mg Tab.Rapdis) 5 mg TRANSLINGU BID PRN PRN Reason: Psychosis Last Admin: 02/01/23 00:42 Dose: 5 mg Omeprazole (Omeprazole 20 Mg Capsule.Dr) 20 mg PO DAILY@0700 [facility] Last Admin: 02/01/23 07:50 Dose: 20 mg Senna/Docusate Sodium (Sennosides/Docusate Sodium Tablet) 1 tab PO BID [facility] Last Admin: 02/01/23 07:50 Dose: 1 tab Sertraline HCl (Sertraline Hcl 25 Mg Tablet) 25 mg PO DAILY [facility] Last Admin: 02/01/23 07:50 Dose: 25 mg Trazodone HCl (Trazodone Hcl 25 Mg Halftab) 25 mg PO BEDTIME MRX1 PRN PRN Reason: Insomnia Last Admin: 01/31/23 23:03 Dose: 25 mg Trazodone HCl (Trazodone Hcl 50 Mg Tablet) 150 mg PO BEDTIME [facility] Last Admin: 01/31/23 20:35 Dose: 150 mg Trazodone HCl (Trazodone Hcl 25 Mg Halftab) 25 mg PO BID PRN PRN Reason: Agitation Last Admin: 02/01/23 07:51 Dose: 25 mg Allergies Allergies Allergy/AdvReac Type Severity Reaction Status Date / Time aspirin Allergy Unknown Verified 01/15/23 18:02 egg Allergy Unknown Verified 01/15/23 18:02 Fish Containing Products Allergy Unknown Verified 01/15/23 18:02 ibuprofen Allergy Unknown Verified 01/15/23 18:02 Influenza Virus Vaccines Allergy Unknown Verified 01/15/23 18:02 iodine Allergy Unknown Verified 01/15/23 18:02 latex Allergy Unknown Verified 01/15/23 18:02 Penicillins Allergy Unknown Verified 01/15/23 18:02 Tetanus Vaccines and Toxoid Allergy Unknown Verified 01/15/23 18:02 tomato Allergy Unknown Verified 01/15/23 18:02 Assessment & Plan Assessment & Plan (1) Neurodegenerative cognitive impairment: Status: Acute Code(s): G31.9 - Degenerative disease of nervous system, unspecified Plan Pt is a Kyrgyz-speaking 72-year-old female with a PMH significant for?dementia unspecified, hx of CVA, HLD, HTN, insulin-dependent diabetes type 2, and MDD with psychotic features who is admitted to [facility] for aggressive behavior and hearing voices. Patient lives with her son who states she is becoming increasingly unmanageable at home: Has been tearing up pictures, breaking glass, hitting him in the face, and been non compliant with her medications by spitting them out. Medical consult for admission H&P. Mood disorder Plan as per Psychiatry HLD/ hx of CVA Continue statin, Plavix HTN Acceptable BP control on current therapies Continue home meds Insulin-dependent type 2 diabetes SSI, Lantus, diabetic diet Abnormal CTA findings CTA at [facility] on 01/17/2023 phone possible colonic mucosal lesion at the splenic flexure versus artifact of under distention Suggestion is for direct visualization with colonoscopy unless one has been done recently Follow-up outpatient with PCP Plan 1. Gather collateral information. 2. Continue with Risperdal as prescribed. On January 19 we increased Risperdal to 1 mg p.o. t.i.d. 3. Reassessment results 4. Trazodone is increased up to 100 mg p.o. q.h.s. in January 19. No improvement of poor sleep. We are going to add a low dose of Ambien at night. The patient finally slept with a combination of trazodone and Ambien. No evidence of delirium or over-sedation. 5. Lower Zoloft of 25 mg daily, probably 50 mg it is over stimulating the patient. 6. Increase gabapentin up to 200 mg p.o. t.i.d. to target anxiety and mood lability on January 23. January 28 we increased gabapentin up to 300 mg p.o. t.i.d. 7. Increase trazodone up to 150 mg p.o. q.h.s. on January 24 to target insomnia 8. Risperdal had been increased January 27 up to 1 mg p.o. b.i.d. and 2 mg p.o. q.h.s. since the patient still agitated at times and psychotic. January 29, we realized that Risperdal has not been working. So we decided to change to Zyprexa 2.5 mg p.o. q.a.m. and 5 mg p.o. q.h.s. 01/31 continue tx. 02/01 continue current plan. Use Trazodone for agitation PRN. Reason for continued inpatient stay Substantial Risk for: harm to others, inability to function and rapid decompensation Time Spent With Patient Time: Total time managing care of this patient today ____ minutes.
--- NOTE | 2023-02-01 15:39 | PC.NURSE ---
Morning bp 120/56 and held 0900 Lisinopril. Letty denied dizziness/lightheadedness. Dr. Martinez notified of bp reading and that Lisinopril was held.
[2023-02-01 18:00] VITALS: PULSE 100; RESP 18; TEMP 36.1; O2SAT 100
[2023-02-01] MEDS: traZODone HCL 50 MG TABLET 150 MG PO (20:07)
[2023-02-01] MEDS: Mirtazapine 7.5 MG TABLET PO (20:07)
[2023-02-01 21:00] VITALS: BP 143/77; PULSE 92
--- NOTE | 2023-02-02 06:55 | PC.NURSE ---
Patient was restless throughout the shift, multiple PRNs administered with modest effect.
[2023-02-02 08:43] VITALS: BP 136/65; PULSE 90; RESP 16; TEMP 36.6; O2SAT 99
[2023-02-02] MEDS: Insulin Glargine,Hum.rec.anlog 100 UNIT/ML 10 ML VIAL 15 UNIT SUBCUT (08:44)
[2023-02-02] MEDS: Memantine HCl 5 MG TABLET PO (08:45)
[2023-02-02] MEDS: Clopidogrel Bisulfate 75 MG TABLET PO (08:45)
[2023-02-02] MEDS: Sertraline HCL 25 MG TABLET PO (08:45)
[2023-02-02 18:00] VITALS: BP 160/84; PULSE 81; TEMP 36.7; O2SAT 96
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
[2023-02-02] MEDS: Mirtazapine 7.5 MG TABLET PO (20:13)
[2023-02-03 06:00] VITALS: BP 164/95; PULSE 96; RESP 18; TEMP 36.1; O2SAT 98
[2023-02-03] MEDS: Insulin Glargine,Hum.rec.anlog 100 UNIT/ML 10 ML VIAL 15 UNIT SUBCUT (11:05)
[2023-02-03] MEDS: Sertraline HCL 25 MG TABLET PO (11:06)
[2023-02-03] MEDS: Memantine HCl 5 MG TABLET PO (11:06)
[2023-02-03] MEDS: Clopidogrel Bisulfate 75 MG TABLET PO (11:08)
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
[2023-02-03 18:00] VITALS: BP 137/82; PULSE 81; RESP 16; TEMP 36.4; O2SAT 100
[2023-02-03] MEDS: Mirtazapine 7.5 MG TABLET PO (20:34)
[2023-02-04] MEDS: Insulin Glargine,Hum.rec.anlog 100 UNIT/ML 10 ML VIAL 15 UNIT SUBCUT (09:48)
[2023-02-04] MEDS: Sertraline HCL 25 MG TABLET PO (09:50)
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
[2023-02-04] MEDS: Mirtazapine 7.5 MG TABLET PO (19:43)
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
[2023-02-05 08:00] VITALS: BP 188/86; PULSE 88; RESP 18; TEMP 36.7; O2SAT 98
[2023-02-05] MEDS: Sertraline HCL 25 MG TABLET PO (08:01)
[2023-02-05] MEDS: Insulin Glargine,Hum.rec.anlog 100 UNIT/ML 10 ML VIAL 15 UNIT SUBCUT (08:02)
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
[2023-02-05] MEDS: LORazepam 0.5 MG TABLET PO ×2 (16:54→21:19)
[2023-02-05 18:00] VITALS: BP 193/75; PULSE 85; RESP 18; TEMP 36.3; O2SAT 98
[2023-02-05] MEDS: traZODone HCL 50 MG TABLET 150 MG PO (20:36)
[2023-02-05] MEDS: OLANZapine 5 MG TABLET PO (20:36)
[2023-02-05] MEDS: Mirtazapine 15 MG TABLET PO (20:36)
[2023-02-05] MEDS: Memantine HCl 5 MG TABLET PO (20:36)
[2023-02-05] MEDS: Gabapentin 300 MG CAPSULE PO (20:36)
[2023-02-05] MEDS: Sennosides/Docusate Sodium TABLET 1 TAB PO (20:36)
[2023-02-05] MEDS: Acetaminophen 325 MG TABLET 650 MG PO (21:23)
[2023-02-05] MEDS: OLANZapine ODT 10 MG TAB.RAPDIS 5 MG TRANSLINGU (23:03)
[2023-02-05] MEDS: traZODone HCL 50 MG TABLET PO (23:04)
[2023-02-06] MEDS: LORazepam 0.5 MG TABLET PO ×2 (01:03→12:25)
[2023-02-06 07:50] VITALS: BP 154/78; PULSE 88; RESP 20; TEMP 36.8; O2SAT 98
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
[2023-02-06] MEDS: Atorvastatin Calcium 20 MG TABLET PO (09:57)
[2023-02-06] MEDS: Omeprazole 20 MG CAPSULE.DR PO (09:57)
[2023-02-06] MEDS: lisinopriL 10 MG TABLET 30 MG PO (09:57)
[2023-02-06] MEDS: Clopidogrel Bisulfate 75 MG TABLET PO (09:57)
[2023-02-06] MEDS: OLANZapine 2.5 MG TABLET PO (09:57)
[2023-02-06] MEDS: Gabapentin 300 MG CAPSULE PO ×3 (09:57→21:09)
[2023-02-06] MEDS: Memantine HCl 5 MG TABLET PO ×2 (09:57→21:09)
[2023-02-06] MEDS: Sennosides/Docusate Sodium TABLET 1 TAB PO ×2 (09:58→21:10)
[2023-02-06] MEDS: Insulin Glargine,Hum.rec.anlog 100 UNIT/ML 10 ML VIAL 15 UNIT SUBCUT (09:58)
[2023-02-06] MEDS: LORazepam 1 MG TABLET PO ×2 (09:58→16:05)
[2023-02-06] MEDS: OLANZapine ODT 10 MG TAB.RAPDIS 5 MG TRANSLINGU (12:25)
[2023-02-06] MEDS: traZODone HCL 25 MG HALFTAB PO (12:25)
[2023-02-06] MEDS: traZODone HCL 100 MG TABLET PO (16:05)
[2023-02-06 18:00] VITALS: BP 165/74; PULSE 84; RESP 18; TEMP 36.5; O2SAT 100
[2023-02-06] MEDS: Acetaminophen 325 MG TABLET 650 MG PO (21:09)
[2023-02-06] MEDS: traZODone HCL 50 MG TABLET 150 MG PO (21:10)
[2023-02-06] MEDS: OLANZapine 5 MG TABLET PO (21:10)
[2023-02-06] MEDS: Mirtazapine 15 MG TABLET PO (21:10)
[2023-02-07] MEDS: LORazepam 1 MG TABLET PO ×3 (01:47→16:27)
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
[2023-02-07 10:00] VITALS: BP 183/80; PULSE 84; RESP 18; TEMP 36.1; O2SAT 98
[2023-02-07] MEDS: Insulin Glargine,Hum.rec.anlog 100 UNIT/ML 10 ML VIAL 15 UNIT SUBCUT (10:18)
[2023-02-07] MEDS: Clopidogrel Bisulfate 75 MG TABLET PO (10:19)
[2023-02-07] MEDS: Omeprazole 20 MG CAPSULE.DR PO (10:19)
[2023-02-07] MEDS: Atorvastatin Calcium 20 MG TABLET PO (10:19)
[2023-02-07] MEDS: Gabapentin 300 MG CAPSULE PO ×3 (10:19→20:24)
[2023-02-07] MEDS: Memantine HCl 5 MG TABLET PO ×2 (10:19→20:24)
[2023-02-07] MEDS: OLANZapine 2.5 MG TABLET PO (10:20)
[2023-02-07] MEDS: Sennosides/Docusate Sodium TABLET 1 TAB PO ×2 (10:21→20:24)
[2023-02-07] MEDS: lisinopriL 10 MG TABLET 30 MG PO (10:21)
[2023-02-07] MEDS: traZODone HCL 100 MG TABLET PO ×2 (10:21→14:53)
[2023-02-07] MEDS: OLANZapine ODT 10 MG TAB.RAPDIS 5 MG TRANSLINGU (11:50)
[2023-02-07] MEDS: Acetaminophen 325 MG TABLET 650 MG PO ×2 (11:50→21:24)
[2023-02-07 12:13] VITALS: BP 154/70; PULSE 78; O2SAT 98
[2023-02-07 20:23] VITALS: BP 184/81; PULSE 87; RESP 16; TEMP 36.6; O2SAT 95
[2023-02-07] MEDS: Mirtazapine 15 MG TABLET PO (20:24)
[2023-02-07] MEDS: traZODone HCL 50 MG TABLET 150 MG PO (20:24)
[2023-02-07] MEDS: OLANZapine 7.5 MG TABLET PO (20:24)
[2023-02-07] MEDS: LORazepam 0.5 MG TABLET PO (21:24)
[2023-02-08] MEDS: LORazepam 1 MG TABLET PO ×4 (02:03→23:49)
[2023-02-08] MEDS: LORazepam 0.5 MG TABLET PO ×2 (03:19→08:23)
[2023-02-08] MEDS: OLANZapine ODT 10 MG TAB.RAPDIS 5 MG TRANSLINGU ×3 (03:19→22:29)
[2023-02-08] MEDS: Acetaminophen 325 MG TABLET 650 MG PO ×3 (03:41→20:30)
[2023-02-08 04:55] LABS: Glucose, Whole Blood 179 mg/dL (60-115)
[2023-02-08] MEDS: Omeprazole 20 MG CAPSULE.DR PO (05:47)
--- NOTE | 2023-02-08 06:43 | PC.NURSE ---
PT up from 2am mehrdad c/o pain additional dose of acetaminophen given at 5:45 results pending slept poorly
[2023-02-08 08:21] VITALS: BP 154/70; PULSE 78; RESP 17; TEMP 36.3; O2SAT 99
[2023-02-08] MEDS: Atorvastatin Calcium 20 MG TABLET PO (08:23)
[2023-02-08] MEDS: Memantine HCl 5 MG TABLET PO ×2 (08:23→20:30)
[2023-02-08] MEDS: lisinopriL 10 MG TABLET 30 MG PO (08:23)
[2023-02-08] MEDS: Clopidogrel Bisulfate 75 MG TABLET PO (08:23)
[2023-02-08] MEDS: Gabapentin 300 MG CAPSULE PO ×3 (08:24→20:30)
[2023-02-08] MEDS: OLANZapine 2.5 MG TABLET PO (08:24)
[2023-02-08] MEDS: Sennosides/Docusate Sodium TABLET 1 TAB PO ×2 (08:24→20:30)
[2023-02-08] MEDS: Insulin Glargine,Hum.rec.anlog 100 UNIT/ML 10 ML VIAL 15 UNIT SUBCUT (08:26)
[2023-02-08] MEDS: traZODone HCL 100 MG TABLET PO ×2 (08:29→15:06)
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
[2023-02-08 20:28] VITALS: BP 190/79; PULSE 89; RESP 17; TEMP 36.1; O2SAT 98
[2023-02-08] MEDS: traZODone HCL 50 MG TABLET 150 MG PO (20:30)
[2023-02-08] MEDS: OLANZapine 7.5 MG TABLET PO (20:30)
[2023-02-08] MEDS: Mirtazapine 15 MG TABLET PO (20:31)
[2023-02-08] MEDS: traZODone HCL 50 MG TABLET PO ×2 (22:31→23:49)
[2023-02-09 08:29] VITALS: BP 161/74; PULSE 77; RESP 17; TEMP 36.2; O2SAT 98
[2023-02-09] MEDS: lisinopriL 10 MG TABLET 30 MG PO (08:32)
[2023-02-09] MEDS: Sennosides/Docusate Sodium TABLET 1 TAB PO ×2 (08:32→20:14)
[2023-02-09] MEDS: Clopidogrel Bisulfate 75 MG TABLET PO (08:32)
[2023-02-09] MEDS: Atorvastatin Calcium 20 MG TABLET PO (08:33)
[2023-02-09] MEDS: Gabapentin 300 MG CAPSULE PO ×3 (08:33→20:14)
[2023-02-09] MEDS: LORazepam 1 MG TABLET PO ×3 (08:33→23:49)
[2023-02-09] MEDS: traZODone HCL 100 MG TABLET PO ×2 (08:33→16:05)
[2023-02-09] MEDS: Memantine HCl 5 MG TABLET PO ×2 (08:33→20:14)
[2023-02-09] MEDS: Acetaminophen 325 MG TABLET 650 MG PO ×2 (08:33→20:14)
[2023-02-09] MEDS: Omeprazole 20 MG CAPSULE.DR PO (08:33)
[2023-02-09] MEDS: OLANZapine 2.5 MG TABLET PO (08:33)
[2023-02-09] MEDS: Insulin Glargine,Hum.rec.anlog 100 UNIT/ML 10 ML VIAL 15 UNIT SUBCUT (08:41)
[2023-02-09] MEDS: LORazepam 0.5 MG TABLET PO (09:53)
[2023-02-09] MEDS: OLANZapine ODT 10 MG TAB.RAPDIS 5 MG TRANSLINGU (09:54)
[2023-02-09 11:38] LABS: Appearance Urine Clear; Color Urine Yellow; Glucose Urine UA Negative (Negative); Leukocyte Esterase Urine Moderate (2+) (Negative); Nitrite Urine Negative (Negative); PH 5.5 (5.0-9.0); Specific Gravity - Urine <= 1.005 (1.005-1.025); UMIC TRIGGER UACC YES; Urine Blood Negative (Negative); Urine Ketones Negative (Negative); Urine Protein Negative (Neg-Trace)
[2023-02-09 12:05] LABS: Bacteria Urine None Seen (None Seen); Hyaline Casts Urine 0-2 /LPF (0-2); RBC Urine 0-2 /HPF (0-2); Squamous Epithelial Cell Urine 0-2 /HPF (0-2); WBC Urine 0-5 /HPF (0-5)
--- NOTE | 2023-02-09 14:01 | PC.NURSE ---
Patient has had urinary urgency throughout the morning and last night with some difficulty voiding. Messaged Dr. Seymour via tiger text on an order for a UA for possible UTI. Sample was collected at 11:10 and results came back negative.
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
[2023-02-09] MEDS: LORazepam 2 MG/ML VIAL 1 MG IM (18:07)
[2023-02-09] MEDS: Haloperidol Lactate 5 MG/ML VIAL IM (18:07)
[2023-02-09 18:10] VITALS: BP 174/77; PULSE 86; RESP 18; TEMP 36.6; O2SAT 92
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
[2023-02-09] MEDS: OLANZapine 7.5 MG TABLET PO (20:13)
[2023-02-09] MEDS: Mirtazapine 15 MG TABLET PO (20:13)
[2023-02-09] MEDS: traZODone HCL 100 MG TABLET 200 MG PO (20:14)
[2023-02-10] MEDS: traZODone HCL 50 MG TABLET PO (01:09)
[2023-02-10] MEDS: OLANZapine ODT 10 MG TAB.RAPDIS 5 MG TRANSLINGU ×2 (01:09→22:33)
[2023-02-10 11:00] VITALS: BP 156/97; PULSE 94; RESP 18; TEMP 36.1; O2SAT 98
[2023-02-10] MEDS: Atorvastatin Calcium 20 MG TABLET PO (11:29)
[2023-02-10] MEDS: Clopidogrel Bisulfate 75 MG TABLET PO (11:29)
[2023-02-10] MEDS: LORazepam 1 MG TABLET PO ×2 (11:30→16:54)
[2023-02-10] MEDS: traZODone HCL 100 MG TABLET PO ×3 (11:30→20:15)
[2023-02-10] MEDS: lisinopriL 10 MG TABLET 30 MG PO (11:30)
[2023-02-10] MEDS: OLANZapine 2.5 MG TABLET PO (11:30)
[2023-02-10] MEDS: Sennosides/Docusate Sodium TABLET 1 TAB PO ×2 (11:30→20:14)
[2023-02-10] MEDS: Memantine HCl 5 MG TABLET PO ×2 (11:31→20:16)
[2023-02-10] MEDS: Gabapentin 300 MG CAPSULE PO ×3 (11:31→20:15)
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
[2023-02-10 18:00] VITALS: BP 150/68; PULSE 81; RESP 16; TEMP 36.4; O2SAT 98
[2023-02-10] MEDS: Acetaminophen 325 MG TABLET 650 MG PO (20:14)
[2023-02-10] MEDS: LORazepam 0.5 MG TABLET PO (20:14)
[2023-02-10] MEDS: OLANZapine 10 MG TABLET PO (20:15)
[2023-02-10] MEDS: Mirtazapine 15 MG TABLET PO (20:16)
[2023-02-10] MEDS: traZODone HCL 100 MG TABLET 200 MG PO (20:17)
[2023-02-11] MEDS: LORazepam 1 MG TABLET PO ×3 (01:18→21:33)
[2023-02-11] MEDS: LORazepam 0.5 MG TABLET PO ×2 (03:10→05:20)
[2023-02-11] MEDS: Acetaminophen 325 MG TABLET 650 MG PO (03:10)
[2023-02-11] MEDS: OLANZapine ODT 10 MG TAB.RAPDIS 5 MG TRANSLINGU (05:19)
[2023-02-11] MEDS: Omeprazole 20 MG CAPSULE.DR PO (05:21)
[2023-02-11 06:00] VITALS: BP 181/92; PULSE 108; RESP 16; TEMP 36.3; O2SAT 97
[2023-02-11] MEDS: Insulin Glargine,Hum.rec.anlog 100 UNIT/ML 10 ML VIAL 15 UNIT SUBCUT (10:49)
[2023-02-11] MEDS: lisinopriL 10 MG TABLET 30 MG PO (10:52)
[2023-02-11] MEDS: traZODone HCL 100 MG TABLET PO ×2 (10:53→14:16)
[2023-02-11] MEDS: Clopidogrel Bisulfate 75 MG TABLET PO (10:53)
[2023-02-11] MEDS: OLANZapine 2.5 MG TABLET PO (10:53)
[2023-02-11] MEDS: Gabapentin 300 MG CAPSULE PO ×3 (10:53→21:35)
[2023-02-11] MEDS: Atorvastatin Calcium 20 MG TABLET PO (10:54)
[2023-02-11] MEDS: Sennosides/Docusate Sodium TABLET 1 TAB PO ×2 (10:54→21:35)
[2023-02-11] MEDS: Memantine HCl 5 MG TABLET PO ×2 (10:54→21:35)
[2023-02-11] MEDS: HaloperidoL 1 MG TABLET 2 MG PO ×3 (10:54→21:34)
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
[2023-02-11] MEDS: traZODone HCL 100 MG TABLET 200 MG PO (21:35)
[2023-02-11] MEDS: traZODone HCL 50 MG TABLET PO (21:36)
[2023-02-11] MEDS: Mirtazapine 15 MG TABLET PO (21:36)
[2023-02-11] MEDS: OLANZapine 10 MG TABLET PO (21:36)
[2023-02-12] MEDS: traZODone HCL 50 MG TABLET PO ×2 (00:44→22:44)
[2023-02-12] MEDS: LORazepam 0.5 MG TABLET PO ×6 (00:44→23:21)
[2023-02-12] MEDS: OLANZapine ODT 10 MG TAB.RAPDIS 5 MG TRANSLINGU ×2 (00:44→22:44)
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
[2023-02-12 12:14] VITALS: BP 144/66; PULSE 90; RESP 16; TEMP 36.1; O2SAT 99
[2023-02-12] MEDS: Memantine HCl 5 MG TABLET PO ×2 (12:17→20:41)
[2023-02-12] MEDS: HaloperidoL 1 MG TABLET 2 MG PO ×3 (12:17→20:40)
[2023-02-12] MEDS: Sennosides/Docusate Sodium TABLET 1 TAB PO ×2 (12:18→20:40)
[2023-02-12] MEDS: lisinopriL 10 MG TABLET 30 MG PO (12:18)
[2023-02-12] MEDS: Clopidogrel Bisulfate 75 MG TABLET PO (12:18)
[2023-02-12] MEDS: Omeprazole 20 MG CAPSULE.DR PO (12:18)
[2023-02-12] MEDS: Atorvastatin Calcium 20 MG TABLET PO (12:18)
[2023-02-12] MEDS: traZODone HCL 100 MG TABLET PO ×2 (12:18→16:39)
[2023-02-12] MEDS: OLANZapine 2.5 MG TABLET PO (12:18)
[2023-02-12] MEDS: Gabapentin 300 MG CAPSULE PO ×3 (12:18→20:40)
[2023-02-12] MEDS: Insulin Glargine,Hum.rec.anlog 100 UNIT/ML 10 ML VIAL 15 UNIT SUBCUT (12:21)
[2023-02-12] MEDS: Acetaminophen 325 MG TABLET 650 MG PO (12:57)
[2023-02-12 18:00] VITALS: BP 186/77; PULSE 85; RESP 18; TEMP 36; O2SAT 99
[2023-02-12] MEDS: OLANZapine 10 MG TABLET PO (20:40)
[2023-02-12] MEDS: traZODone HCL 100 MG TABLET 200 MG PO (20:41)
[2023-02-12] MEDS: Mirtazapine 15 MG TABLET PO (20:41)
--- NOTE | 2023-02-13 01:46 | PC.NURSE ---
PT was seen placing herself on the floor by staff doing checks. PT was assisted up and back to her bed. No injury was found she is ambulating with no c/o pain and no signs of injury. NO limping or favoring of any extremities ,no bruising or redness and continues to not complain of any pain
[2023-02-13 08:20] VITALS: BP 165/83; PULSE 76; RESP 16; TEMP 35.8; O2SAT 99
[2023-02-13] MEDS: Memantine HCl 5 MG TABLET PO ×2 (09:13→19:55)
[2023-02-13] MEDS: Gabapentin 300 MG CAPSULE PO ×3 (09:13→19:54)
[2023-02-13] MEDS: lisinopriL 10 MG TABLET 30 MG PO (09:13)
[2023-02-13] MEDS: Omeprazole 20 MG CAPSULE.DR PO (09:13)
[2023-02-13] MEDS: LORazepam 0.5 MG TABLET PO ×4 (09:13→22:09)
[2023-02-13] MEDS: HaloperidoL 1 MG TABLET 2 MG PO (09:14)
[2023-02-13] MEDS: Sennosides/Docusate Sodium TABLET 1 TAB PO ×2 (09:14→19:55)
[2023-02-13] MEDS: Atorvastatin Calcium 20 MG TABLET PO (09:14)
[2023-02-13] MEDS: traZODone HCL 100 MG TABLET PO ×2 (09:15→14:46)
[2023-02-13] MEDS: Clopidogrel Bisulfate 75 MG TABLET PO (09:15)
[2023-02-13] MEDS: OLANZapine 2.5 MG TABLET PO (09:15)
[2023-02-13] MEDS: Insulin Glargine,Hum.rec.anlog 100 UNIT/ML 10 ML VIAL 15 UNIT SUBCUT (09:35)
[2023-02-13] MEDS: OLANZapine ODT 10 MG TAB.RAPDIS 5 MG TRANSLINGU ×2 (10:10→22:09)
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
[2023-02-13] MEDS: HaloperidoL 1 MG TABLET 3 MG PO ×2 (14:36→19:53)
[2023-02-13] MEDS: Acetaminophen 325 MG TABLET 650 MG PO (16:13)
[2023-02-13 18:00] VITALS: BP 152/71; PULSE 82; RESP 16; TEMP 35.8; O2SAT 98
[2023-02-13] MEDS: Mirtazapine 15 MG TABLET PO (19:52)
[2023-02-13] MEDS: OLANZapine 10 MG TABLET PO (19:55)
[2023-02-13] MEDS: traZODone HCL 100 MG TABLET 200 MG PO (19:56)
[2023-02-13] MEDS: traZODone HCL 50 MG TABLET PO (22:09)
[2023-02-14] MEDS: Acetaminophen 325 MG TABLET 650 MG PO ×2 (00:52→23:33)
[2023-02-14] MEDS: LORazepam 0.5 MG TABLET PO ×3 (01:02→23:32)
[2023-02-14 08:54] VITALS: BP 154/72; PULSE 80; RESP 18; TEMP 36.2; O2SAT 98
[2023-02-14] MEDS: Clopidogrel Bisulfate 75 MG TABLET PO (09:05)
[2023-02-14] MEDS: Memantine HCl 5 MG TABLET PO ×2 (09:05→20:24)
[2023-02-14] MEDS: Omeprazole 20 MG CAPSULE.DR PO (09:05)
[2023-02-14] MEDS: HaloperidoL 5 MG TABLET PO ×3 (09:07→20:24)
[2023-02-14] MEDS: Atorvastatin Calcium 20 MG TABLET PO (09:08)
[2023-02-14] MEDS: Sennosides/Docusate Sodium TABLET 1 TAB PO ×2 (09:08→20:24)
[2023-02-14] MEDS: lisinopriL 10 MG TABLET 30 MG PO (09:08)
[2023-02-14] MEDS: traZODone HCL 100 MG TABLET PO (09:08)
[2023-02-14] MEDS: Gabapentin 300 MG CAPSULE PO ×3 (09:08→20:23)
[2023-02-14] MEDS: OLANZapine 2.5 MG TABLET PO (09:08)
[2023-02-14] MEDS: Insulin Glargine,Hum.rec.anlog 100 UNIT/ML 10 ML VIAL 15 UNIT SUBCUT (09:12)
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
[2023-02-14 16:55] LABS: Glucose, Whole Blood 113 mg/dL (60-115)
[2023-02-14 18:00] VITALS: BP 143/63; PULSE 74; RESP 16; TEMP 36; O2SAT 100
[2023-02-14] MEDS: OLANZapine 10 MG TABLET PO (20:24)
[2023-02-14] MEDS: traZODone HCL 100 MG TABLET 200 MG PO (20:24)
[2023-02-14] MEDS: Mirtazapine 15 MG TABLET PO (20:24)
[2023-02-14] MEDS: OLANZapine ODT 10 MG TAB.RAPDIS 5 MG TRANSLINGU (23:32)
[2023-02-14] MEDS: traZODone HCL 50 MG TABLET PO (23:32)
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
[2023-02-15 10:12] VITALS: BP 123/63; PULSE 98; RESP 18; TEMP 36.4; O2SAT 97
[2023-02-15] MEDS: Insulin Glargine,Hum.rec.anlog 100 UNIT/ML 10 ML VIAL 15 UNIT SUBCUT (10:17)
[2023-02-15] MEDS: traZODone HCL 100 MG TABLET PO ×2 (10:17→16:15)
[2023-02-15] MEDS: lisinopriL 10 MG TABLET 30 MG PO (10:17)
[2023-02-15] MEDS: Clopidogrel Bisulfate 75 MG TABLET PO (10:17)
[2023-02-15] MEDS: Memantine HCl 5 MG TABLET PO ×2 (10:18→20:17)
[2023-02-15] MEDS: Atorvastatin Calcium 20 MG TABLET PO (10:18)
[2023-02-15] MEDS: HaloperidoL 5 MG TABLET PO ×3 (10:18→20:18)
[2023-02-15] MEDS: OLANZapine 2.5 MG TABLET PO (10:18)
[2023-02-15] MEDS: Sennosides/Docusate Sodium TABLET 1 TAB PO ×2 (10:18→20:18)
[2023-02-15] MEDS: Gabapentin 300 MG CAPSULE PO ×3 (10:18→20:18)
[2023-02-15] MEDS: Omeprazole 20 MG CAPSULE.DR PO (10:18)
[2023-02-15] MEDS: Acetaminophen 325 MG TABLET 650 MG PO (17:32)
[2023-02-15 18:00] VITALS: BP 151/68; PULSE 84; RESP 18; TEMP 35.9; O2SAT 96
[2023-02-15] MEDS: traZODone HCL 100 MG TABLET 200 MG PO (20:17)
[2023-02-15] MEDS: Mirtazapine 15 MG TABLET PO (20:17)
[2023-02-15] MEDS: OLANZapine 10 MG TABLET PO (20:18)
[2023-02-16] MEDS: OLANZapine ODT 10 MG TAB.RAPDIS 5 MG TRANSLINGU ×3 (00:24→22:26)
[2023-02-16] MEDS: LORazepam 0.5 MG TABLET PO ×3 (00:24→22:25)
[2023-02-16] MEDS: traZODone HCL 50 MG TABLET PO (00:25)
[2023-02-16 08:07] VITALS: BP 139/58; PULSE 94; RESP 18; TEMP 36.4
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
[2023-02-16] MEDS: lisinopriL 10 MG TABLET 30 MG PO (08:15)
[2023-02-16] MEDS: traZODone HCL 100 MG TABLET PO ×2 (08:17→15:09)
[2023-02-16] MEDS: HaloperidoL 5 MG TABLET PO ×3 (08:17→20:01)
[2023-02-16] MEDS: Clopidogrel Bisulfate 75 MG TABLET PO (08:17)
[2023-02-16] MEDS: Sennosides/Docusate Sodium TABLET 1 TAB PO ×2 (08:17→20:03)
[2023-02-16] MEDS: Atorvastatin Calcium 20 MG TABLET PO (08:17)
[2023-02-16] MEDS: Memantine HCl 5 MG TABLET PO ×2 (08:17→20:02)
[2023-02-16] MEDS: Gabapentin 300 MG CAPSULE PO ×3 (08:17→20:02)
[2023-02-16] MEDS: OLANZapine 2.5 MG TABLET PO (08:18)
[2023-02-16] MEDS: Insulin Glargine,Hum.rec.anlog 100 UNIT/ML 10 ML VIAL 15 UNIT SUBCUT (08:21)
[2023-02-16] MEDS: Omeprazole 20 MG CAPSULE.DR PO (08:24)
[2023-02-16 18:00] VITALS: BP 168/72; PULSE 94; RESP 16; TEMP 36.3; O2SAT 97
[2023-02-16] MEDS: Acetaminophen 325 MG TABLET 650 MG PO (18:45)
[2023-02-16] MEDS: OLANZapine 10 MG TABLET PO (20:00)
[2023-02-16] MEDS: Magnesium Hydrox/Alum Hydrox 30 ML ORAL.SUSP PO (20:00)
[2023-02-16] MEDS: traZODone HCL 100 MG TABLET 200 MG PO (20:01)
[2023-02-16] MEDS: Mirtazapine 15 MG TABLET PO (20:02)
[2023-02-17] MEDS: Acetaminophen 325 MG TABLET 650 MG PO ×2 (00:38→16:01)
[2023-02-17] MEDS: traZODone HCL 50 MG TABLET PO (00:39)
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
[2023-02-17] MEDS: Insulin Glargine,Hum.rec.anlog 100 UNIT/ML 10 ML VIAL 15 UNIT SUBCUT (12:34)
[2023-02-17 12:40] VITALS: BP 197/79; PULSE 74; RESP 16; TEMP 36.2; O2SAT 98
[2023-02-17] MEDS: Atorvastatin Calcium 20 MG TABLET PO (12:46)
[2023-02-17] MEDS: Sennosides/Docusate Sodium TABLET 1 TAB PO ×2 (12:46→20:23)
[2023-02-17] MEDS: traZODone HCL 100 MG TABLET PO ×2 (12:46→15:35)
[2023-02-17] MEDS: OLANZapine 2.5 MG TABLET PO (12:46)
[2023-02-17] MEDS: lisinopriL 10 MG TABLET 30 MG PO (12:46)
[2023-02-17] MEDS: OLANZapine ODT 10 MG TAB.RAPDIS 5 MG TRANSLINGU (12:46)
[2023-02-17] MEDS: Clopidogrel Bisulfate 75 MG TABLET PO (12:46)
[2023-02-17] MEDS: Gabapentin 300 MG CAPSULE PO ×3 (12:46→20:23)
[2023-02-17] MEDS: HaloperidoL 5 MG TABLET PO ×3 (12:46→20:23)
[2023-02-17] MEDS: Omeprazole 20 MG CAPSULE.DR PO (12:47)
[2023-02-17] MEDS: Memantine HCl 5 MG TABLET PO ×2 (12:48→20:23)
[2023-02-17 13:30] VITALS: BP 153/68; PULSE 97
[2023-02-17] MEDS: Mirtazapine 15 MG TABLET PO (20:23)
[2023-02-17] MEDS: Melatonin 3 MG TABLET 6 MG PO (20:23)
[2023-02-17] MEDS: traZODone HCL 100 MG TABLET 200 MG PO (20:23)
[2023-02-17] MEDS: OLANZapine 10 MG TABLET PO (20:23)
[2023-02-18 07:55] VITALS: BP 146/67; PULSE 90; RESP 16; TEMP 35.6; O2SAT 99
[2023-02-18] MEDS: Gabapentin 300 MG CAPSULE PO ×3 (08:51→19:44)
[2023-02-18] MEDS: Clopidogrel Bisulfate 75 MG TABLET PO (08:51)
[2023-02-18] MEDS: Omeprazole 20 MG CAPSULE.DR PO (08:52)
[2023-02-18] MEDS: OLANZapine 2.5 MG TABLET PO (08:52)
[2023-02-18] MEDS: Atorvastatin Calcium 20 MG TABLET PO (08:52)
[2023-02-18] MEDS: traZODone HCL 100 MG TABLET PO ×2 (08:52→14:12)
[2023-02-18] MEDS: Memantine HCl 5 MG TABLET PO ×2 (08:53→19:43)
[2023-02-18] MEDS: lisinopriL 10 MG TABLET 30 MG PO (08:53)
[2023-02-18] MEDS: Sennosides/Docusate Sodium TABLET 1 TAB PO ×2 (08:53→19:44)
[2023-02-18] MEDS: HaloperidoL 5 MG TABLET PO ×3 (08:53→19:43)
[2023-02-18] MEDS: Insulin Glargine,Hum.rec.anlog 100 UNIT/ML 10 ML VIAL 15 UNIT SUBCUT (08:54)
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
[2023-02-18 18:00] VITALS: BP 137/65; PULSE 83; RESP 18; TEMP 36.1; O2SAT 99
[2023-02-18] MEDS: Melatonin 3 MG TABLET 6 MG PO (19:41)
[2023-02-18] MEDS: traZODone HCL 100 MG TABLET 200 MG PO (19:42)
[2023-02-18] MEDS: Mirtazapine 15 MG TABLET PO (19:43)
[2023-02-18] MEDS: OLANZapine 10 MG TABLET PO (19:43)
[2023-02-19] MEDS: traZODone HCL 50 MG TABLET PO (00:15)
[2023-02-19] MEDS: LORazepam 0.5 MG TABLET PO (00:15)
[2023-02-19] MEDS: OLANZapine ODT 10 MG TAB.RAPDIS 5 MG TRANSLINGU (00:15)
[2023-02-19] MEDS: Acetaminophen 325 MG TABLET 650 MG PO (01:20)
[2023-02-19 08:12] VITALS: BP 131/60; PULSE 86; RESP 18; TEMP 36.1; O2SAT 97
[2023-02-19] MEDS: Omeprazole 20 MG CAPSULE.DR PO (08:14)
[2023-02-19] MEDS: HaloperidoL 5 MG TABLET PO ×3 (08:14→20:13)
[2023-02-19] MEDS: Sennosides/Docusate Sodium TABLET 1 TAB PO ×2 (08:14→20:13)
[2023-02-19] MEDS: OLANZapine 2.5 MG TABLET PO (08:14)
[2023-02-19] MEDS: lisinopriL 10 MG TABLET 30 MG PO (08:14)
[2023-02-19] MEDS: Insulin Glargine,Hum.rec.anlog 100 UNIT/ML 10 ML VIAL 15 UNIT SUBCUT (08:14)
[2023-02-19] MEDS: Gabapentin 300 MG CAPSULE PO ×3 (08:14→20:14)
[2023-02-19] MEDS: Atorvastatin Calcium 20 MG TABLET PO (08:14)
[2023-02-19] MEDS: traZODone HCL 100 MG TABLET PO ×2 (08:14→15:30)
[2023-02-19] MEDS: Memantine HCl 5 MG TABLET PO ×2 (08:14→20:14)
[2023-02-19] MEDS: Clopidogrel Bisulfate 75 MG TABLET PO (08:14)
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
[2023-02-19 18:00] VITALS: BP 135/60; PULSE 92; RESP 16; TEMP 35.9; O2SAT 92
[2023-02-19] MEDS: Melatonin 3 MG TABLET 6 MG PO (20:13)
[2023-02-19] MEDS: OLANZapine 10 MG TABLET PO (20:13)
[2023-02-19] MEDS: traZODone HCL 100 MG TABLET 200 MG PO (20:13)
[2023-02-19] MEDS: Mirtazapine 15 MG TABLET PO (20:14)
[2023-02-20 08:15] VITALS: BP 129/66; PULSE 99; RESP 18; TEMP 35.8; O2SAT 97
[2023-02-20] MEDS: HaloperidoL 5 MG TABLET PO ×3 (08:17→21:48)
[2023-02-20] MEDS: lisinopriL 10 MG TABLET 30 MG PO (08:17)
[2023-02-20] MEDS: Memantine HCl 5 MG TABLET PO ×2 (08:18→21:47)
[2023-02-20] MEDS: Atorvastatin Calcium 20 MG TABLET PO (08:18)
[2023-02-20] MEDS: Insulin Glargine,Hum.rec.anlog 100 UNIT/ML 10 ML VIAL 15 UNIT SUBCUT (08:18)
[2023-02-20] MEDS: traZODone HCL 100 MG TABLET PO ×2 (08:18→17:09)
[2023-02-20] MEDS: Omeprazole 20 MG CAPSULE.DR PO (08:18)
[2023-02-20] MEDS: Clopidogrel Bisulfate 75 MG TABLET PO (08:18)
[2023-02-20] MEDS: Gabapentin 300 MG CAPSULE PO ×3 (08:18→21:47)
[2023-02-20] MEDS: OLANZapine 2.5 MG TABLET PO (08:18)
[2023-02-20] MEDS: Sennosides/Docusate Sodium TABLET 1 TAB PO ×2 (08:18→21:47)
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
[2023-02-20 18:00] VITALS: BP 133/64; PULSE 68; RESP 18; TEMP 36.1; O2SAT 98
[2023-02-20] MEDS: Melatonin 3 MG TABLET 6 MG PO (21:47)
[2023-02-20] MEDS: OLANZapine 10 MG TABLET PO (21:47)
[2023-02-20] MEDS: traZODone HCL 100 MG TABLET 200 MG PO (21:47)
[2023-02-20] MEDS: Mirtazapine 15 MG TABLET PO (21:47)
[2023-02-21 08:00] VITALS: BP 129/61; PULSE 75; RESP 18; TEMP 36.2; O2SAT 97
[2023-02-21] MEDS: Clopidogrel Bisulfate 75 MG TABLET PO (11:04)
[2023-02-21] MEDS: Omeprazole 20 MG CAPSULE.DR PO (11:04)
[2023-02-21] MEDS: Gabapentin 300 MG CAPSULE PO ×3 (11:04→19:59)
[2023-02-21] MEDS: Atorvastatin Calcium 20 MG TABLET PO (11:04)
[2023-02-21] MEDS: HaloperidoL 5 MG TABLET PO ×3 (11:04→20:00)
[2023-02-21] MEDS: OLANZapine 2.5 MG TABLET PO (11:05)
[2023-02-21] MEDS: lisinopriL 10 MG TABLET 30 MG PO (11:05)
[2023-02-21] MEDS: Memantine HCl 5 MG TABLET PO ×2 (11:05→20:00)
[2023-02-21] MEDS: Insulin Glargine,Hum.rec.anlog 100 UNIT/ML 10 ML VIAL 15 UNIT SUBCUT (11:05)
[2023-02-21] MEDS: traZODone HCL 100 MG TABLET PO ×2 (11:05→14:03)
[2023-02-21] MEDS: Sennosides/Docusate Sodium TABLET 1 TAB PO ×2 (11:05→20:00)
[2023-02-21 11:16] LABS: Glucose, Whole Blood 187 mg/dL (60-115)
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
[2023-02-21] MEDS: LORazepam 0.5 MG TABLET PO (17:47)
[2023-02-21 18:00] VITALS: BP 172/76; PULSE 75; RESP 16; TEMP 36.2; O2SAT 99
[2023-02-21] MEDS: Melatonin 3 MG TABLET 6 MG PO (19:59)
[2023-02-21] MEDS: Mirtazapine 15 MG TABLET PO (19:59)
[2023-02-21] MEDS: traZODone HCL 100 MG TABLET 200 MG PO (20:00)
[2023-02-21] MEDS: OLANZapine 10 MG TABLET PO (20:00)
[2023-02-21] MEDS: OLANZapine ODT 10 MG TAB.RAPDIS 5 MG TRANSLINGU (22:01)
[2023-02-21] MEDS: traZODone HCL 50 MG TABLET PO (22:02)
[2023-02-22] MEDS: Omeprazole 20 MG CAPSULE.DR PO (10:04)
[2023-02-22] MEDS: lisinopriL 10 MG TABLET 30 MG PO (10:04)
[2023-02-22] MEDS: Atorvastatin Calcium 20 MG TABLET PO (10:04)
[2023-02-22] MEDS: Gabapentin 300 MG CAPSULE PO ×3 (10:05→21:08)
[2023-02-22] MEDS: HaloperidoL 5 MG TABLET PO ×3 (10:05→21:08)
[2023-02-22] MEDS: OLANZapine 2.5 MG TABLET PO (10:05)
[2023-02-22] MEDS: Clopidogrel Bisulfate 75 MG TABLET PO (10:05)
[2023-02-22] MEDS: traZODone HCL 100 MG TABLET PO ×2 (10:05→14:39)
[2023-02-22] MEDS: Memantine HCl 5 MG TABLET PO ×2 (10:05→21:08)
[2023-02-22] MEDS: Insulin Glargine,Hum.rec.anlog 100 UNIT/ML 10 ML VIAL 15 UNIT SUBCUT (10:05)
[2023-02-22] MEDS: Sennosides/Docusate Sodium TABLET 1 TAB PO (10:05)
[2023-02-22] MEDS: LORazepam 0.5 MG TABLET PO (10:11)
[2023-02-22] MEDS: OLANZapine ODT 10 MG TAB.RAPDIS 5 MG TRANSLINGU (10:11)
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
[2023-02-22 18:00] VITALS: BP 147/75; PULSE 86; RESP 18; TEMP 36.1; O2SAT 96
[2023-02-22] MEDS: OLANZapine 10 MG TABLET PO (21:08)
[2023-02-22] MEDS: Melatonin 3 MG TABLET 6 MG PO (21:08)
[2023-02-22] MEDS: Mirtazapine 15 MG TABLET PO (21:08)
[2023-02-22] MEDS: traZODone HCL 100 MG TABLET 200 MG PO (21:12)
--- NOTE | 2023-02-23 06:21 | PC.NURSE ---
Assumed care 19:00 (02/22). VSS. No acute complaints offered by pt. No distress or acute issues noted overnight. Pt slept well for eight hours overnight with even and unlabored breathing observed on frequent purposeful rounding. See shift assessment for full details.
[2023-02-23 07:55] VITALS: BP 120/66; PULSE 84; RESP 18; TEMP 36.4; O2SAT 98
[2023-02-23] MEDS: lisinopriL 10 MG TABLET 30 MG PO (08:18)
[2023-02-23] MEDS: OLANZapine 2.5 MG TABLET PO (08:19)
[2023-02-23] MEDS: Gabapentin 300 MG CAPSULE PO ×3 (08:19→21:18)
[2023-02-23] MEDS: traZODone HCL 100 MG TABLET PO ×2 (08:19→15:16)
[2023-02-23] MEDS: Omeprazole 20 MG CAPSULE.DR PO (08:19)
[2023-02-23] MEDS: Sennosides/Docusate Sodium TABLET 1 TAB PO ×2 (08:19→21:17)
[2023-02-23] MEDS: Atorvastatin Calcium 20 MG TABLET PO (08:19)
[2023-02-23] MEDS: Clopidogrel Bisulfate 75 MG TABLET PO (08:19)
[2023-02-23] MEDS: HaloperidoL 5 MG TABLET PO ×3 (08:19→21:17)
[2023-02-23] MEDS: Memantine HCl 5 MG TABLET PO ×2 (08:19→21:17)
[2023-02-23] MEDS: Insulin Glargine,Hum.rec.anlog 100 UNIT/ML 10 ML VIAL 15 UNIT SUBCUT (08:26)
--- NOTE | 2023-02-23 09:50 | P.PNPSI_ITS ---
Subjective Subjective Date of Service: 02/23/23 Reason For Visit: Major Depressive D/o, w/ psychotic features Subjective Notes: Conditional Voluntary Interim History: Patient was seen and discussed in rounds today. Records and plans were reviewed. She continues to be very demanding, loud and not cooperative. She defecated and urinated on the floor this morning and then went and laid in somebody else's bed. She continues to be very confused and compromised. Review of Systems Review of Systems Yes Unobtainable due to mental status Mental Status Exam Mental Status Exam Narrative: In today's visit she is alert, confused, paranoid and delusional. She could not be tested formally. Cognitively is impaired. Judgment is impaired. No dangerous behaviors reported Diagnostics Vital Signs (24Hr): Vital Signs - 24 hr 02/22/23 18:00 02/23/23 07:55 Temperature 96.9 F 97.6 F Pulse Rate 86 84 Respiratory Rate 18 18 Blood Pressure 147/75 H 120/66 Pulse Oximetry 96 98 Oxygen Delivery Method Room Air Room Air Labs 01/22/23 08:03 01/22/23 08:03 Labs: Laboratory Results - last 48 hr 02/21/23 11:11 POC Glucose 187 H Medications Medications Current Medications Acetaminophen (Acetaminophen 325 Mg Tablet) 650 mg PO Q6H PRN PRN Reason: Headache/Pain Mild Scale (1-3) Last Admin: 02/19/23 01:20 Dose: 650 mg Al Hydroxide/Mg Hydroxide (Magnesium Hydrox/Alum Hydrox 30 Ml Oral.Susp) 30 ml PO Q6H PRN PRN Reason: Heartburn/Nausea Last Admin: 02/16/23 20:00 Dose: 30 ml Atorvastatin Calcium (Atorvastatin Calcium 20 Mg Tablet) 20 mg PO DAILY [facility] Last Admin: 02/23/23 08:19 Dose: 20 mg Clopidogrel Bisulfate (Clopidogrel Bisulfate 75 Mg Tablet) 75 mg PO DAILY [facility] Last Admin: 02/23/23 08:19 Dose: 75 mg Gabapentin (Gabapentin 300 Mg Capsule) 300 mg PO TID [facility] Last Admin: 02/23/23 08:19 Dose: 300 mg Haloperidol (Haloperidol 5 Mg Tablet) 5 mg PO TID [facility] Last Admin: 02/23/23 08:19 Dose: 5 mg Insulin Glargine (Insulin Glargine,Hum.Rec.Anlog 100 Unit/Ml 10 Ml Vial) 15 unit SUBCUT DAILY [facility] Last Admin: 02/23/23 08:26 Dose: 15 unit Lisinopril (Lisinopril 10 Mg Tablet) 30 mg PO DAILY [facility] Last Admin: 02/23/23 08:18 Dose: 30 mg Lorazepam (Lorazepam 0.5 Mg Tablet) 0.5 mg PO Q4H PRN PRN Reason: anxiety/restlessness Last Admin: 02/22/23 10:11 Dose: 0.5 mg Magnesium Hydroxide (Milk Of Magnesia 30 Ml Oral.Susp) 30 ml PO DAILY PRN PRN Reason: Constipation Last Admin: 01/30/23 21:31 Dose: 30 ml Melatonin (Melatonin 3 Mg Tablet) 6 mg PO BEDTIME [facility] Last Admin: 02/22/23 21:08 Dose: 6 mg Memantine (Memantine Hcl 5 Mg Tablet) 5 mg PO BID [facility] Last Admin: 02/23/23 08:19 Dose: 5 mg Mirtazapine (Mirtazapine 15 Mg Tablet) 15 mg PO BEDTIME [facility] Last Admin: 02/22/23 21:08 Dose: 15 mg Olanzapine (Olanzapine 2.5 Mg Tablet) 2.5 mg PO DAILY [facility] Last Admin: 02/23/23 08:19 Dose: 2.5 mg Olanzapine (Olanzapine Odt 10 Mg Tab.Rapdis) 5 mg TRANSLINGU BID PRN PRN Reason: Psychosis Last Admin: 02/22/23 10:11 Dose: 5 mg Olanzapine (Olanzapine 10 Mg Tablet) 10 mg PO BEDTIME [facility] Last Admin: 02/22/23 21:08 Dose: 10 mg Omeprazole (Omeprazole 20 Mg Capsule.Dr) 20 mg PO DAILY@0700 [facility] Last Admin: 02/23/23 08:19 Dose: 20 mg Senna/Docusate Sodium (Sennosides/Docusate Sodium Tablet) 1 tab PO BID [facility] Last Admin: 02/23/23 08:19 Dose: 1 tab Trazodone HCl (Trazodone Hcl 50 Mg Tablet) 50 mg PO BEDTIME MRX1 PRN PRN Reason: Insomnia Last Admin: 02/21/23 22:02 Dose: 50 mg Trazodone HCl (Trazodone Hcl 100 Mg Tablet) 100 mg PO BID@0900,1500 [facility] Last Admin: 02/23/23 08:19 Dose: 100 mg Trazodone HCl (Trazodone Hcl 100 Mg Tablet) 200 mg PO BEDTIME [facility] Last Admin: 02/22/23 21:12 Dose: 200 mg Allergies Allergies Allergy/AdvReac Type Severity Reaction Status Date / Time aspirin Allergy Unknown Verified 01/15/23 18:02 egg Allergy Unknown Verified 01/15/23 18:02 Fish Containing Products Allergy Unknown Verified 01/15/23 18:02 ibuprofen Allergy Unknown Verified 01/15/23 18:02 Influenza Virus Vaccines Allergy Unknown Verified 01/15/23 18:02 iodine Allergy Unknown Verified 01/15/23 18:02 latex Allergy Unknown Verified 01/15/23 18:02 Penicillins Allergy Unknown Verified 01/15/23 18:02 Tetanus Vaccines and Toxoid Allergy Unknown Verified 01/15/23 18:02 tomato Allergy Unknown Verified 01/15/23 18:02 Assessment & Plan Assessment & Plan (1) Neurodegenerative cognitive impairment: Status: Acute Code(s): G31.9 - Degenerative disease of nervous system, unspecified Plan Pt is a Greek-speaking 72-year-old female with a PMH significant for?dementia unspecified, hx of CVA, HLD, HTN, insulin-dependent diabetes type 2, and MDD with psychotic features who is admitted to [facility] for aggressive behavior and hearing voices. Patient lives with her son who states she is becoming increasingly unmanageable at home: Has been tearing up pictures, breaking glass, hitting him in the face, and been non compliant with her medications by spitting them out. Medical consult for admission H&P. Mood disorder Plan as per Psychiatry HLD/ hx of CVA Continue statin, Plavix HTN Acceptable BP control on current therapies Continue home meds Insulin-dependent type 2 diabetes SSI, Lantus, diabetic diet Abnormal CTA findings CTA at [facility] on 01/17/2023 phone possible colonic mucosal lesion at the splenic flexure versus artifact of under distention Suggestion is for direct visualization with colonoscopy unless one has been done recently Follow-up outpatient with PCP Plan 1. Gather collateral information. 2. Continue with Risperdal as prescribed. On January 19 we increased Risperdal to 1 mg p.o. t.i.d. 3. Reassessment results 4. Trazodone is increased up to 100 mg p.o. q.h.s. in January 19. No improvement of poor sleep. We are going to add a low dose of Ambien at night. The patient finally slept with a combination of trazodone and Ambien. No evidence of delirium or over-sedation. 5. Lower Zoloft of 25 mg daily, probably 50 mg it is over stimulating the patient. 6. Increase gabapentin up to 200 mg p.o. t.i.d. to target anxiety and mood lability on January 23. January 28 we increased gabapentin up to 300 mg p.o. t.i.d. 7. Increase trazodone up to 150 mg p.o. q.h.s. on January 24 to target insomnia 8. Risperdal had been increased January 27 up to 1 mg p.o. b.i.d. and 2 mg p.o. q.h.s. since the patient still agitated at times and psychotic. January 29, we realized that Risperdal has not been working. So we decided to change to Zyprexa 2.5 mg p.o. q.a.m. and 5 mg p.o. q.h.s. 9. Family meeting for next at 13:00 10. Ativan increased to 1 mg p.o. q.8 hours to keep 0.5 as p.r.n. February 14 we decided to discontinue Ativan since the patient was not responding to that anymore 11. February 10, we are increasing Zyprexa to 10 mg p.o. q.h.s. . 12. Start Haldol 2 mg p.o. t.i.d. on February 11. So far, no evidence of EPS or over-sedation. We are going to increase Haldol from 6 mg a day to 9 mg a day on February 13. Since the patient remains grossly disorganized we decided to increase the Haldol up to 5 mg p.o. t.i.d. on February 14.\ 13. Start melatonin 6 mg p.o. q.h.s. for insomnia. 02/22: Continue current regimen and plans 02/23 continue current plans and regimen Reason for continued inpatient stay Substantial Risk for: inability to function Time Spent With Patient Time: Total time managing care of this patient today ____ minutes.
[2023-02-23 18:00] VITALS: BP 176/74; PULSE 72; RESP 18; TEMP 36.4; O2SAT 97
[2023-02-23] MEDS: LORazepam 0.5 MG TABLET PO (21:17)
[2023-02-23] MEDS: Mirtazapine 15 MG TABLET PO (21:17)
[2023-02-23] MEDS: Acetaminophen 325 MG TABLET 650 MG PO (21:17)
[2023-02-23] MEDS: Melatonin 3 MG TABLET 6 MG PO (21:17)
[2023-02-23] MEDS: traZODone HCL 100 MG TABLET 200 MG PO (21:17)
[2023-02-23] MEDS: OLANZapine 10 MG TABLET PO (21:18)
[2023-02-24] MEDS: OLANZapine ODT 10 MG TAB.RAPDIS 5 MG TRANSLINGU (01:07)
[2023-02-24] MEDS: traZODone HCL 50 MG TABLET PO (01:08)
[2023-02-24 06:00] VITALS: BP 158/71; PULSE 88; RESP 14; TEMP 36.3; O2SAT 96
[2023-02-24] MEDS: lisinopriL 10 MG TABLET 30 MG PO (09:00)
[2023-02-24] MEDS: Omeprazole 20 MG CAPSULE.DR PO (09:00)
[2023-02-24] MEDS: Memantine HCl 5 MG TABLET PO ×2 (09:00→20:36)
[2023-02-24] MEDS: Gabapentin 300 MG CAPSULE PO ×3 (09:00→20:36)
[2023-02-24] MEDS: Clopidogrel Bisulfate 75 MG TABLET PO (09:00)
[2023-02-24] MEDS: Sennosides/Docusate Sodium TABLET 1 TAB PO ×2 (09:00→20:36)
[2023-02-24] MEDS: HaloperidoL 5 MG TABLET PO ×3 (09:00→20:36)
[2023-02-24] MEDS: traZODone HCL 100 MG TABLET PO ×2 (09:00→17:44)
[2023-02-24] MEDS: Atorvastatin Calcium 20 MG TABLET PO (09:00)
[2023-02-24] MEDS: OLANZapine 2.5 MG TABLET PO (09:00)
[2023-02-24] MEDS: Insulin Glargine,Hum.rec.anlog 100 UNIT/ML 10 ML VIAL 15 UNIT SUBCUT (09:01)
--- NOTE | 2023-02-24 11:28 | P.PNPSI_ITS ---
Subjective Subjective Date of Service: 02/24/23 Reason For Visit: Major Depressive D/o, w/ psychotic features Subjective Notes: Conditional Voluntary ( by healthcare proxy) Healthcare Proxy: Yes Interim History: The nursing staff reported the patient is only alert to self. She took a shower yesterday in the morning. She was restless and clapping to herself. She slept 7 hours last night. on interview the patient was confused, easily redirectable, denies new symptoms. Mental Status Exam Mental Status Exam Patient Appearance: Appropriate Patient Orientation: Person Level of Consciousness: Awake and Appropriate Patient Behavior: Guarded and Passive Mood Description: Withdrawn Affect Description: Labile Patient Cognition Impaired: Yes Speech Pattern: Impoverished and Monotone Hallucinations: None Delusions: Paranoid Ideation Thought Process: Illogical and Distracted Thought Content: positive for [place] and positive for Poverty of Content Judgement: Poor Diagnostics Vital Signs (24Hr): Vital Signs - 24 hr 02/23/23 18:00 02/24/23 06:00 Temperature 97.6 F 97.3 F Pulse Rate 72 88 Respiratory Rate 18 14 Blood Pressure 176/74 H 158/71 H Pulse Oximetry 97 96 Oxygen Delivery Method Room Air Room Air Labs 01/22/23 08:03 01/22/23 08:03 Medications Medications Current Medications Acetaminophen (Acetaminophen 325 Mg Tablet) 650 mg PO Q6H PRN PRN Reason: Headache/Pain Mild Scale (1-3) Last Admin: 02/23/23 21:17 Dose: 650 mg Al Hydroxide/Mg Hydroxide (Magnesium Hydrox/Alum Hydrox 30 Ml Oral.Susp) 30 ml PO Q6H PRN PRN Reason: Heartburn/Nausea Last Admin: 02/16/23 20:00 Dose: 30 ml Atorvastatin Calcium (Atorvastatin Calcium 20 Mg Tablet) 20 mg PO DAILY [facility] Last Admin: 02/24/23 09:00 Dose: 20 mg Clopidogrel Bisulfate (Clopidogrel Bisulfate 75 Mg Tablet) 75 mg PO DAILY [facility] Last Admin: 02/24/23 09:00 Dose: 75 mg Gabapentin (Gabapentin 300 Mg Capsule) 300 mg PO TID [facility] Last Admin: 02/24/23 09:00 Dose: 300 mg Haloperidol (Haloperidol 5 Mg Tablet) 5 mg PO TID [facility] Last Admin: 02/24/23 09:00 Dose: 5 mg Insulin Glargine (Insulin Glargine,Hum.Rec.Anlog 100 Unit/Ml 10 Ml Vial) 15 unit SUBCUT DAILY [facility] Last Admin: 02/24/23 09:01 Dose: 15 unit Lisinopril (Lisinopril 10 Mg Tablet) 30 mg PO DAILY [facility] Last Admin: 02/24/23 09:00 Dose: 30 mg Lorazepam (Lorazepam 0.5 Mg Tablet) 0.5 mg PO Q4H PRN PRN Reason: anxiety/restlessness Last Admin: 02/23/23 21:17 Dose: 0.5 mg Magnesium Hydroxide (Milk Of Magnesia 30 Ml Oral.Susp) 30 ml PO DAILY PRN PRN Reason: Constipation Last Admin: 01/30/23 21:31 Dose: 30 ml Melatonin (Melatonin 3 Mg Tablet) 6 mg PO BEDTIME [facility] Last Admin: 02/23/23 21:17 Dose: 6 mg Memantine (Memantine Hcl 5 Mg Tablet) 5 mg PO BID [facility] Last Admin: 02/24/23 09:00 Dose: 5 mg Mirtazapine (Mirtazapine 15 Mg Tablet) 15 mg PO BEDTIME [facility] Last Admin: 02/23/23 21:17 Dose: 15 mg Olanzapine (Olanzapine 2.5 Mg Tablet) 2.5 mg PO DAILY [facility] Last Admin: 02/24/23 09:00 Dose: 2.5 mg Olanzapine (Olanzapine Odt 10 Mg Tab.Rapdis) 5 mg TRANSLINGU BID PRN PRN Reason: Psychosis Last Admin: 02/24/23 01:07 Dose: 5 mg Olanzapine (Olanzapine 10 Mg Tablet) 10 mg PO BEDTIME [facility] Last Admin: 02/23/23 21:18 Dose: 10 mg Omeprazole (Omeprazole 20 Mg Capsule.Dr) 20 mg PO DAILY@0700 [facility] Last Admin: 02/24/23 09:00 Dose: 20 mg Senna/Docusate Sodium (Sennosides/Docusate Sodium Tablet) 1 tab PO BID [facility] Last Admin: 02/24/23 09:00 Dose: 1 tab Trazodone HCl (Trazodone Hcl 50 Mg Tablet) 50 mg PO BEDTIME MRX1 PRN PRN Reason: Insomnia Last Admin: 02/24/23 01:08 Dose: 50 mg Trazodone HCl (Trazodone Hcl 100 Mg Tablet) 100 mg PO BID@0900,1500 [facility] Last Admin: 02/24/23 09:00 Dose: 100 mg Trazodone HCl (Trazodone Hcl 100 Mg Tablet) 200 mg PO BEDTIME [facility] Last Admin: 02/23/23 21:17 Dose: 200 mg Allergies Allergies Allergy/AdvReac Type Severity Reaction Status Date / Time aspirin Allergy Unknown Verified 01/15/23 18:02 egg Allergy Unknown Verified 01/15/23 18:02 Fish Containing Products Allergy Unknown Verified 01/15/23 18:02 ibuprofen Allergy Unknown Verified 01/15/23 18:02 Influenza Virus Vaccines Allergy Unknown Verified 01/15/23 18:02 iodine Allergy Unknown Verified 01/15/23 18:02 latex Allergy Unknown Verified 01/15/23 18:02 Penicillins Allergy Unknown Verified 01/15/23 18:02 Tetanus Vaccines and Toxoid Allergy Unknown Verified 01/15/23 18:02 tomato Allergy Unknown Verified 01/15/23 18:02 Assessment & Plan Assessment & Plan (1) Neurodegenerative cognitive impairment: Status: Acute Code(s): G31.9 - Degenerative disease of nervous system, unspecified Plan Pt is a Hungarian-speaking 72-year-old female with a PMH significant for?dementia unspecified, hx of CVA, HLD, HTN, insulin-dependent diabetes type 2, and MDD with psychotic features who is admitted to [facility] for aggressive behavior and hearing voices. Patient lives with her son who states she is becoming increasingly unmanageable at home: Has been tearing up pictures, breaking glass, hitting him in the face, and been non compliant with her medications by spitting them out. Medical consult for admission H&P. Mood disorder Plan as per Psychiatry HLD/ hx of CVA Continue statin, Plavix HTN Acceptable BP control on current therapies Continue home meds Insulin-dependent type 2 diabetes SSI, Lantus, diabetic diet Abnormal CTA findings CTA at [facility] on 01/17/2023 phone possible colonic mucosal lesion at the splenic flexure versus artifact of under distention Suggestion is for direct visualization with colonoscopy unless one has been done recently Follow-up outpatient with PCP Plan 1. Gather collateral information. 2. Continue with Risperdal as prescribed. On January 19 we increased Risperdal to 1 mg p.o. t.i.d. 3. Reassessment results 4. Trazodone is increased up to 100 mg p.o. q.h.s. in January 19. No improvement of poor sleep. We are going to add a low dose of Ambien at night. The patient finally slept with a combination of trazodone and Ambien. No evidence of delirium or over-sedation. 5. Lower Zoloft of 25 mg daily, probably 50 mg it is over stimulating the patient. 6. Increase gabapentin up to 200 mg p.o. t.i.d. to target anxiety and mood lability on January 23. January 28 we increased gabapentin up to 300 mg p.o. t.i.d. 7. Increase trazodone up to 150 mg p.o. q.h.s. on January 24 to target insomnia 8. Risperdal had been increased January 27 up to 1 mg p.o. b.i.d. and 2 mg p.o. q.h.s. since the patient still agitated at times and psychotic. January 29, we realized that Risperdal has not been working. So we decided to change to Zyprexa 2.5 mg p.o. q.a.m. and 5 mg p.o. q.h.s. 9. Family meeting for next at 13:00 10. Ativan increased to 1 mg p.o. q.8 hours to keep 0.5 as p.r.n. February 14 we decided to discontinue Ativan since the patient was not responding to that anymore 11. February 10, we are increasing Zyprexa to 10 mg p.o. q.h.s. . 12. Start Haldol 2 mg p.o. t.i.d. on February 11. So far, no evidence of EPS or over-sedation. We are going to increase Haldol from 6 mg a day to 9 mg a day on February 13. Since the patient remains grossly disorganized we decided to increase the Haldol up to 5 mg p.o. t.i.d. on February 14.\ 13. Continue melatonin 6 mg p.o. q.h.s. since it has been effective. Reason for continued inpatient stay Substantial Risk for: inability to function, rapid decompensation and med/psych decompensation Time Spent With Patient Time: Total time managing care of this patient today __20__ minutes.
[2023-02-24 19:35] VITALS: BP 169/80; PULSE 90; RESP 18; TEMP 36.7; O2SAT 95
[2023-02-24] MEDS: LORazepam 0.5 MG TABLET PO (20:36)
[2023-02-24] MEDS: Acetaminophen 325 MG TABLET 650 MG PO (20:36)
[2023-02-24] MEDS: OLANZapine 10 MG TABLET PO (20:36)
[2023-02-24] MEDS: traZODone HCL 100 MG TABLET 200 MG PO (20:36)
[2023-02-24] MEDS: Melatonin 3 MG TABLET 6 MG PO (20:36)
[2023-02-24] MEDS: Mirtazapine 15 MG TABLET PO (20:37)
[2023-02-25] MEDS: Acetaminophen 325 MG TABLET 650 MG PO (02:47)
[2023-02-25] MEDS: LORazepam 0.5 MG TABLET PO ×2 (02:48→20:58)
[2023-02-25 08:36] VITALS: BP 134/63; PULSE 82; RESP 18; TEMP 36.4; O2SAT 95
[2023-02-25] MEDS: traZODone HCL 100 MG TABLET PO ×2 (08:43→17:19)
[2023-02-25] MEDS: Memantine HCl 5 MG TABLET PO ×2 (08:44→20:58)
[2023-02-25] MEDS: Atorvastatin Calcium 20 MG TABLET PO (08:44)
[2023-02-25] MEDS: HaloperidoL 5 MG TABLET PO ×3 (08:44→20:58)
[2023-02-25] MEDS: OLANZapine 2.5 MG TABLET PO (08:44)
[2023-02-25] MEDS: Gabapentin 300 MG CAPSULE PO ×3 (08:44→20:58)
[2023-02-25] MEDS: Insulin Glargine,Hum.rec.anlog 100 UNIT/ML 10 ML VIAL 15 UNIT SUBCUT (08:44)
[2023-02-25] MEDS: Clopidogrel Bisulfate 75 MG TABLET PO (08:44)
[2023-02-25] MEDS: Sennosides/Docusate Sodium TABLET 1 TAB PO ×2 (08:44→20:58)
[2023-02-25] MEDS: lisinopriL 10 MG TABLET 30 MG PO (08:44)
[2023-02-25] MEDS: Omeprazole 20 MG CAPSULE.DR PO (08:45)
--- NOTE | 2023-02-25 10:40 | HO.PSYCHPN ---
Subjective Subjective Date of Service: 02/25/23 Reason For Visit: Major Depressive D/o, w/ psychotic features Subjective Notes: Conditional Voluntary Interim History: The nursing staff reported the patient had been clapping, wandering into other's patient's rooms and she had urinated in the floor. She slept 4 hours and she has eating well. The level of aggressive T has lowered. She has been compliant with treatment. On interview the patient denies new symptoms she looks pleasantly confused. The social insurance analyst reported that she is going to start referral for assisted facilities. Mental Status Exam Mental Status Exam Patient Appearance: Appropriate Patient Orientation: Person Level of Consciousness: Awake and Restless Patient Behavior: Guarded and Passive Mood Description: Withdrawn Affect Description: Constricted Patient Cognition Impaired: Yes Ability to Follow Directions: Good Speech Pattern: Clear Hallucinations: None Delusions: Paranoid Ideation and Ideas of Reference Thought Process: Distracted and Slowed Thinking Thought Content: positive for [place] and positive for Poverty of Content Judgement: Poor Diagnostics Vital Signs (24Hr): Vital Signs - 24 hr 02/24/23 19:35 02/25/23 08:36 Temperature 98.1 F 97.5 F Pulse Rate 90 82 Respiratory Rate 18 18 Blood Pressure 169/80 H 134/63 Pulse Oximetry 95 95 Oxygen Delivery Method Room Air Room Air Labs 01/22/23 08:03 01/22/23 08:03 Medications Medications Current Medications Acetaminophen (Acetaminophen 325 Mg Tablet) 650 mg PO Q6H PRN PRN Reason: Headache/Pain Mild Scale (1-3) Last Admin: 02/25/23 02:47 Dose: 650 mg Al Hydroxide/Mg Hydroxide (Magnesium Hydrox/Alum Hydrox 30 Ml Oral.Susp) 30 ml PO Q6H PRN PRN Reason: Heartburn/Nausea Last Admin: 02/16/23 20:00 Dose: 30 ml Atorvastatin Calcium (Atorvastatin Calcium 20 Mg Tablet) 20 mg PO DAILY [facility] Last Admin: 02/25/23 08:44 Dose: 20 mg Clopidogrel Bisulfate (Clopidogrel Bisulfate 75 Mg Tablet) 75 mg PO DAILY [facility] Last Admin: 02/25/23 08:44 Dose: 75 mg Gabapentin (Gabapentin 300 Mg Capsule) 300 mg PO TID [facility] Last Admin: 02/25/23 08:44 Dose: 300 mg Haloperidol (Haloperidol 5 Mg Tablet) 5 mg PO TID [facility] Last Admin: 02/25/23 08:44 Dose: 5 mg Insulin Glargine (Insulin Glargine,Hum.Rec.Anlog 100 Unit/Ml 10 Ml Vial) 15 unit SUBCUT DAILY [facility] Last Admin: 02/25/23 08:44 Dose: 15 unit Lisinopril (Lisinopril 10 Mg Tablet) 30 mg PO DAILY [facility] Last Admin: 02/25/23 08:44 Dose: 30 mg Lorazepam (Lorazepam 0.5 Mg Tablet) 0.5 mg PO Q4H PRN PRN Reason: anxiety/restlessness Last Admin: 02/25/23 02:48 Dose: 0.5 mg Magnesium Hydroxide (Milk Of Magnesia 30 Ml Oral.Susp) 30 ml PO DAILY PRN PRN Reason: Constipation Last Admin: 01/30/23 21:31 Dose: 30 ml Melatonin (Melatonin 3 Mg Tablet) 6 mg PO BEDTIME [facility] Last Admin: 02/24/23 20:36 Dose: 6 mg Memantine (Memantine Hcl 5 Mg Tablet) 5 mg PO BID [facility] Last Admin: 02/25/23 08:44 Dose: 5 mg Mirtazapine (Mirtazapine 15 Mg Tablet) 15 mg PO BEDTIME [facility] Last Admin: 02/24/23 20:37 Dose: 15 mg Olanzapine (Olanzapine 2.5 Mg Tablet) 2.5 mg PO DAILY [facility] Last Admin: 02/25/23 08:44 Dose: 2.5 mg Olanzapine (Olanzapine Odt 10 Mg Tab.Rapdis) 5 mg TRANSLINGU BID PRN PRN Reason: Psychosis Last Admin: 02/24/23 01:07 Dose: 5 mg Olanzapine (Olanzapine 10 Mg Tablet) 10 mg PO BEDTIME [facility] Last Admin: 02/24/23 20:36 Dose: 10 mg Omeprazole (Omeprazole 20 Mg Capsule.Dr) 20 mg PO DAILY@0700 [facility] Last Admin: 02/25/23 08:45 Dose: 20 mg Senna/Docusate Sodium (Sennosides/Docusate Sodium Tablet) 1 tab PO BID [facility] Last Admin: 02/25/23 08:44 Dose: 1 tab Trazodone HCl (Trazodone Hcl 50 Mg Tablet) 50 mg PO BEDTIME MRX1 PRN PRN Reason: Insomnia Last Admin: 02/24/23 01:08 Dose: 50 mg Trazodone HCl (Trazodone Hcl 100 Mg Tablet) 100 mg PO BID@0900,1500 [facility] Last Admin: 02/25/23 08:43 Dose: 100 mg Trazodone HCl (Trazodone Hcl 100 Mg Tablet) 200 mg PO BEDTIME [facility] Last Admin: 02/24/23 20:36 Dose: 200 mg Allergies Allergies Allergy/AdvReac Type Severity Reaction Status Date / Time aspirin Allergy Unknown Verified 01/15/23 18:02 egg Allergy Unknown Verified 01/15/23 18:02 Fish Containing Products Allergy Unknown Verified 01/15/23 18:02 ibuprofen Allergy Unknown Verified 01/15/23 18:02 Influenza Virus Vaccines Allergy Unknown Verified 01/15/23 18:02 iodine Allergy Unknown Verified 01/15/23 18:02 latex Allergy Unknown Verified 01/15/23 18:02 Penicillins Allergy Unknown Verified 01/15/23 18:02 Tetanus Vaccines and Toxoid Allergy Unknown Verified 01/15/23 18:02 tomato Allergy Unknown Verified 01/15/23 18:02 Assessment & Plan Assessment & Plan (1) Neurodegenerative cognitive impairment: Status: Acute Code(s): G31.9 - Degenerative disease of nervous system, unspecified Plan Pt is a Slovak-speaking 72-year-old female with a PMH significant for?dementia unspecified, hx of CVA, HLD, HTN, insulin-dependent diabetes type 2, and MDD with psychotic features who is admitted to [facility] for aggressive behavior and hearing voices. Patient lives with her son who states she is becoming increasingly unmanageable at home: Has been tearing up pictures, breaking glass, hitting him in the face, and been non compliant with her medications by spitting them out. Medical consult for admission H&P. Mood disorder Plan as per Psychiatry HLD/ hx of CVA Continue statin, Plavix HTN Acceptable BP control on current therapies Continue home meds Insulin-dependent type 2 diabetes SSI, Lantus, diabetic diet Abnormal CTA findings CTA at [facility] on 01/17/2023 phone possible colonic mucosal lesion at the splenic flexure versus artifact of under distention Suggestion is for direct visualization with colonoscopy unless one has been done recently Follow-up outpatient with PCP Plan 1. Gather collateral information. 2. Continue with Risperdal as prescribed. On January 19 we increased Risperdal to 1 mg p.o. t.i.d. 3. Reassessment results 4. Trazodone is increased up to 100 mg p.o. q.h.s. in January 19. No improvement of poor sleep. We are going to add a low dose of Ambien at night. The patient finally slept with a combination of trazodone and Ambien. No evidence of delirium or over-sedation. 5. Lower Zoloft of 25 mg daily, probably 50 mg it is over stimulating the patient. 6. Increase gabapentin up to 200 mg p.o. t.i.d. to target anxiety and mood lability on January 23. January 28 we increased gabapentin up to 300 mg p.o. t.i.d. 7. Increase trazodone up to 150 mg p.o. q.h.s. on January 24 to target insomnia 8. Risperdal had been increased January 27 up to 1 mg p.o. b.i.d. and 2 mg p.o. q.h.s. since the patient still agitated at times and psychotic. January 29, we realized that Risperdal has not been working. So we decided to change to Zyprexa 2.5 mg p.o. q.a.m. and 5 mg p.o. q.h.s. 9. Family meeting for next at 13:00 10. Ativan increased to 1 mg p.o. q.8 hours to keep 0.5 as p.r.n. February 14 we decided to discontinue Ativan since the patient was not responding to that anymore 11. February 10, we are increasing Zyprexa to 10 mg p.o. q.h.s. . 12. Start Haldol 2 mg p.o. t.i.d. on February 11. So far, no evidence of EPS or over-sedation. We are going to increase Haldol from 6 mg a day to 9 mg a day on February 13. Since the patient remains grossly disorganized we decided to increase the Haldol up to 5 mg p.o. t.i.d. on February 14.\ 13. Continue melatonin 6 mg p.o. q.h.s. since it has been effective. Reason for continued inpatient stay Substantial Risk for: inability to function, rapid decompensation and med/psych decompensation Time Spent With Patient Time: Total time managing care of this patient today __20__ minutes.
--- NOTE | 2023-02-25 16:06 | PC.ADMIT ---
Pt. arrived on unit at 12:30 accompanied by this RN and security. Pt. oriented to unit, no smoking and visitation policies explained. Pt. A & O X 4. She walks independently without assistive devices. She has her head flexed forward and wears a cervical collar, reporting that when she is doing better psychiatrically she is able to hold her head upright. She reports she has had increased problems with her balance. She eats slowly and methodically because she reports she has difficulty swallowing. PT/RETOUCHER reynaldo. Pt. is observed with ritualistic behaviors in the bathroom and around med administrations. Pt. who has long standing bipolar disorder and good community supports enabling her to live independently presented to the ED by ambulance after not taking medications for a few days. 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 In particular, one alter she refers to as Blue is causing her problems. Per crisis assmt. pt. is normally very regimented with her meds and it is unlike her to be non compliant. She reports she is seeking treatment to get these alters under control. Pt. lives independently in an apartment with robust services, including Meals on Wheels, house cleaning, laundry, and a PHARMACY CLINICAL SPECIALIST. She has established providers and a strong support system. OT/PT/RETOUCHER reynaldo
[2023-02-25 18:00] VITALS: BP 155/66; PULSE 82; RESP 18; TEMP 36.1; O2SAT 98
[2023-02-25] MEDS: Mirtazapine 15 MG TABLET PO (20:58)
[2023-02-25] MEDS: Melatonin 3 MG TABLET 6 MG PO (20:58)
[2023-02-25] MEDS: OLANZapine 10 MG TABLET PO (20:58)
[2023-02-25] MEDS: traZODone HCL 100 MG TABLET 200 MG PO (20:59)
--- NOTE | 2023-02-26 | ECG_ITS ---
Test Reason : palpitations Blood Pressure : / mmHG Vent. Rate : 090 BPM Atrial Rate : 090 BPM P-R Int : 126 ms QRS Dur : 074 ms QT Int : 366 ms P-R-T Axes : 049 050 064 degrees QTc Int : 447 ms Normal sinus rhythm Normal ECG No significant changes seen Referred By: Manisha Pa Electronically Signed By:SETH GERONIMO MD
[2023-02-26] MEDS: Omeprazole 20 MG CAPSULE.DR PO (06:11)
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
[2023-02-26] MEDS: traZODone HCL 100 MG TABLET PO (16:06)
[2023-02-26] MEDS: HaloperidoL 5 MG TABLET PO ×2 (16:06→20:30)
[2023-02-26] MEDS: Gabapentin 300 MG CAPSULE PO ×2 (16:06→20:30)
[2023-02-26 18:05] LABS: Alanine Aminotransferase 24 U/L (0-31); Albumin Level 4.3 g/dL (3.5-5.0); Alkaline Phosphatase 88 U/L (39-117); Anion Gap 15 (12-20); Aspartate Amino Transferase 22 U/L (5-31); Bilirubin Total 0.2 mg/dL (0.0-1.0); Blood Urea Nitrogen 18 mg/dL (9-16); Calcium 9.7 mg/dL (8.4-10.2); Carbon Dioxide 25 mmol/L (22-29); Chloride 105 mmol/L (96-108); Estimated Glomerular Filt Rate > 60; Glucose Random 262 mg/dL (60-115); Magnesium 1.8 mg/dL (1.6-2.6); Potassium 3.4 mmol/L (3.3-5.1); Sodium 142 mmol/L (135-145); Total Protein 7.4 g/dL (6.5-8.0)
--- NOTE | 2023-02-26 18:05 | PC.NURSE ---
THIS NURSE NOTICED THAT PATIENT APPEARED MORE TREMULOUS THAN TYPICAL WELL FRANTIC. SHE WAS WALKING AROUND QUICKLY AND STATING THAT SHE DIDN'T KNOW WHAT SHE WANTED. INITIAL VS TAKEN 1740: 190/83, 123, 99%, 98.1. THIS RN WENT TO GET JOHANNA HEARN NP, WHO WAS ON THE UNIT AT THE TIME. PT TOLD JOHANNA THAT SHE HAD CHEST PAIN. JOHANNA ASSESSED THE PATIENT AND ORDERED HOSPITALIST CONSULT, STAT EKG AND LABS. 2ND SET VS AT 1800: 143/65, 100, 98%, 98.4. AFTER ALL DIAGNOSTICS AND EXAM COMPLETED BY PA, PT IS CURRENTLY RESTING COMFORTABLY IN HER BED, SLEEPING. HER TREMOR HAS DISSIPATED. PLEASE SEE RESULTS OF DIAGNOSTICS FOR ADDITIONAL INFORMATION.
[2023-02-26 18:13] LABS: Troponin-I High Sensitivity 2.8 ng/L (<3.5-17.0)
--- NOTE | 2023-02-26 18:29 | PM.EVENT ---
Event Note Date of Service: 02/26/23 Event Note: Medical consult for patient experiencing chest pain and abdominal discomfort. Troponins were drawn, negative at 2.8. EKG without ischemic changes. Patient seen and evaluated at bedside resting comfortably. Patient in no acute distress. Not diaphoretic. Anterior left sided chest wall slightly tender to palpation. Abdomen slightly tender to palpation especially on LLQ. Given patient's current comfortable disposition and negative troponin\ and EKG, no indication for additional workup or treatment at this time. Thank you for allowing us to participate in the care of this patient. Signing off at this time. Please re-consult if any acute issues arise. Time Spent With Patient Time: Total time managing care of this patient today ____ minutes.
[2023-02-26 20:28] VITALS: BP 177/74; PULSE 99; RESP 17; TEMP 36.5; O2SAT 97
[2023-02-26] MEDS: traZODone HCL 100 MG TABLET 200 MG PO (20:29)
[2023-02-26] MEDS: Sennosides/Docusate Sodium TABLET 1 TAB PO (20:29)
[2023-02-26] MEDS: OLANZapine 10 MG TABLET PO (20:30)
[2023-02-26] MEDS: Melatonin 3 MG TABLET 6 MG PO (20:30)
[2023-02-26] MEDS: Memantine HCl 5 MG TABLET PO (20:30)
[2023-02-26] MEDS: Mirtazapine 15 MG TABLET PO (20:30)
[2023-02-27] MEDS: Omeprazole 20 MG CAPSULE.DR PO (06:18)
[2023-02-27 07:03] LABS: Glucose, Whole Blood 242 mg/dL (60-115)
[2023-02-27 09:00] VITALS: BP 169/78; PULSE 88; RESP 18; TEMP 36.8; O2SAT 97
[2023-02-27] MEDS: OLANZapine 2.5 MG TABLET PO (09:33)
[2023-02-27] MEDS: traZODone HCL 100 MG TABLET PO ×2 (09:33→15:55)
[2023-02-27] MEDS: Sennosides/Docusate Sodium TABLET 1 TAB PO ×2 (09:33→20:59)
[2023-02-27] MEDS: HaloperidoL 5 MG TABLET PO ×3 (09:33→20:59)
[2023-02-27] MEDS: Atorvastatin Calcium 20 MG TABLET PO (09:33)
[2023-02-27] MEDS: Clopidogrel Bisulfate 75 MG TABLET PO (09:33)
[2023-02-27] MEDS: Insulin Glargine,Hum.rec.anlog 100 UNIT/ML 10 ML VIAL 15 UNIT SUBCUT (09:34)
[2023-02-27] MEDS: Gabapentin 300 MG CAPSULE PO ×3 (09:34→20:59)
[2023-02-27] MEDS: lisinopriL 10 MG TABLET 30 MG PO (09:34)
[2023-02-27] MEDS: Memantine HCl 5 MG TABLET PO ×2 (09:34→20:59)
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
[2023-02-27 19:39] VITALS: BP 132/73; PULSE 81; RESP 16; TEMP 35.7; O2SAT 98
[2023-02-27] MEDS: OLANZapine 10 MG TABLET PO (20:59)
[2023-02-27] MEDS: traZODone HCL 100 MG TABLET 200 MG PO (20:59)
[2023-02-27] MEDS: Melatonin 3 MG TABLET 6 MG PO (21:00)
[2023-02-27] MEDS: Mirtazapine 15 MG TABLET PO (21:00)
[2023-02-28 07:55] VITALS: BP 157/70; PULSE 75; RESP 16; TEMP 36.6; O2SAT 98
[2023-02-28] MEDS: lisinopriL 10 MG TABLET 30 MG PO (08:43)
[2023-02-28] MEDS: HaloperidoL 5 MG TABLET PO ×3 (08:43→20:51)
[2023-02-28] MEDS: Omeprazole 20 MG CAPSULE.DR PO (08:44)
[2023-02-28] MEDS: traZODone HCL 100 MG TABLET PO ×2 (08:44→14:24)
[2023-02-28] MEDS: Sennosides/Docusate Sodium TABLET 1 TAB PO ×2 (08:44→20:51)
[2023-02-28] MEDS: Clopidogrel Bisulfate 75 MG TABLET PO (08:45)
[2023-02-28] MEDS: Memantine HCl 5 MG TABLET PO ×2 (08:45→20:52)
[2023-02-28] MEDS: Atorvastatin Calcium 20 MG TABLET PO (08:45)
[2023-02-28] MEDS: Gabapentin 300 MG CAPSULE PO ×3 (08:45→20:51)
[2023-02-28] MEDS: OLANZapine 2.5 MG TABLET PO (08:45)
[2023-02-28] MEDS: Insulin Glargine,Hum.rec.anlog 100 UNIT/ML 10 ML VIAL 15 UNIT SUBCUT (08:46)
[2023-02-28] MEDS: Acetaminophen 325 MG TABLET 650 MG PO (13:16)
[2023-02-28] MEDS: OLANZapine ODT 10 MG TAB.RAPDIS 5 MG TRANSLINGU (13:17)
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
[2023-02-28 19:25] VITALS: BP 161/68; PULSE 66; RESP 16; TEMP 36.7; O2SAT 99
[2023-02-28] MEDS: traMADoL HCL 50 MG TABLET 25 MG PO (20:51)
[2023-02-28] MEDS: traZODone HCL 100 MG TABLET 200 MG PO (20:51)
[2023-02-28] MEDS: Mirtazapine 15 MG TABLET PO (20:51)
[2023-02-28] MEDS: OLANZapine 10 MG TABLET PO (20:52)
[2023-02-28] MEDS: Melatonin 3 MG TABLET 6 MG PO (20:52)
[2023-03-01] MEDS: OLANZapine ODT 10 MG TAB.RAPDIS 5 MG TRANSLINGU ×2 (00:31→10:01)
[2023-03-01] MEDS: traZODone HCL 50 MG TABLET PO (00:31)
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
[2023-03-01 09:32] VITALS: BP 125/84; PULSE 87; RESP 20; TEMP 36.3; O2SAT 98
[2023-03-01] MEDS: HaloperidoL 5 MG TABLET PO ×3 (09:33→21:09)
[2023-03-01] MEDS: Clopidogrel Bisulfate 75 MG TABLET PO (09:33)
[2023-03-01] MEDS: lisinopriL 10 MG TABLET 30 MG PO (09:33)
[2023-03-01] MEDS: Memantine HCl 5 MG TABLET PO ×2 (09:33→21:08)
[2023-03-01] MEDS: Atorvastatin Calcium 20 MG TABLET PO (09:33)
[2023-03-01] MEDS: Omeprazole 20 MG CAPSULE.DR PO (09:33)
[2023-03-01] MEDS: Sennosides/Docusate Sodium TABLET 1 TAB PO ×2 (09:34→21:09)
[2023-03-01] MEDS: traMADoL HCL 50 MG TABLET 25 MG PO (09:34)
[2023-03-01] MEDS: Gabapentin 300 MG CAPSULE PO ×3 (09:34→21:08)
[2023-03-01] MEDS: OLANZapine 2.5 MG TABLET PO (09:35)
[2023-03-01] MEDS: traZODone HCL 100 MG TABLET PO ×2 (09:35→15:39)
[2023-03-01] MEDS: Insulin Glargine,Hum.rec.anlog 100 UNIT/ML 10 ML VIAL 15 UNIT SUBCUT (09:35)
[2023-03-01] MEDS: Acetaminophen 325 MG TABLET 650 MG PO (09:35)
[2023-03-01] MEDS: LORazepam 0.5 MG TABLET PO ×2 (10:01→21:09)
[2023-03-01 19:30] VITALS: BP 155/72; PULSE 73; RESP 18; TEMP 36.3; O2SAT 96
[2023-03-01] MEDS: Melatonin 3 MG TABLET 6 MG PO (21:08)
[2023-03-01] MEDS: traZODone HCL 100 MG TABLET 200 MG PO (21:08)
[2023-03-01] MEDS: Mirtazapine 15 MG TABLET PO (21:08)
[2023-03-01] MEDS: OLANZapine 10 MG TABLET PO (21:09)
[2023-03-02 07:46] VITALS: BP 143/63; PULSE 76; RESP 18; TEMP 36.4; O2SAT 96
[2023-03-02] MEDS: Omeprazole 20 MG CAPSULE.DR PO (07:51)
[2023-03-02] MEDS: Clopidogrel Bisulfate 75 MG TABLET PO (07:51)
[2023-03-02] MEDS: traZODone HCL 100 MG TABLET PO ×2 (07:52→14:43)
[2023-03-02] MEDS: HaloperidoL 5 MG TABLET PO ×3 (07:52→21:38)
[2023-03-02] MEDS: Gabapentin 300 MG CAPSULE PO ×3 (07:52→21:38)
[2023-03-02] MEDS: Sennosides/Docusate Sodium TABLET 1 TAB PO ×2 (07:52→21:35)
[2023-03-02] MEDS: Atorvastatin Calcium 20 MG TABLET PO (07:52)
[2023-03-02] MEDS: OLANZapine 2.5 MG TABLET PO (07:52)
[2023-03-02] MEDS: LORazepam 0.5 MG TABLET PO ×2 (07:52→17:04)
[2023-03-02] MEDS: lisinopriL 10 MG TABLET 30 MG PO (07:52)
[2023-03-02] MEDS: traMADoL HCL 50 MG TABLET 25 MG PO (07:52)
[2023-03-02] MEDS: Insulin Glargine,Hum.rec.anlog 100 UNIT/ML 10 ML VIAL 15 UNIT SUBCUT (07:53)
[2023-03-02] MEDS: OLANZapine ODT 10 MG TAB.RAPDIS 5 MG TRANSLINGU ×2 (07:53→17:04)
[2023-03-02] MEDS: Acetaminophen 325 MG TABLET 650 MG PO (07:53)
[2023-03-02] MEDS: Memantine HCl 5 MG TABLET PO ×2 (07:53→21:38)
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
[2023-03-02 18:00] VITALS: BP 153/70; PULSE 80; RESP 18; TEMP 36.3; O2SAT 95
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
[2023-03-02] MEDS: Melatonin 3 MG TABLET 6 MG PO (21:35)
[2023-03-02] MEDS: Mirtazapine 15 MG TABLET PO (21:36)
[2023-03-02] MEDS: OLANZapine 10 MG TABLET PO (21:36)
[2023-03-02] MEDS: traZODone HCL 100 MG TABLET 200 MG PO (21:37)
[2023-03-03 05:34] VITALS: BP 162/70; PULSE 74; RESP 16; TEMP 36; O2SAT 99
[2023-03-03] MEDS: Acetaminophen 325 MG TABLET 650 MG PO ×2 (06:02→21:06)
[2023-03-03] MEDS: Omeprazole 20 MG CAPSULE.DR PO (06:02)
[2023-03-03 07:55] VITALS: BP 120/60; PULSE 92; RESP 18; TEMP 36.6; O2SAT 98
[2023-03-03] MEDS: lisinopriL 10 MG TABLET 30 MG PO (09:11)
[2023-03-03] MEDS: Atorvastatin Calcium 20 MG TABLET PO (09:11)
[2023-03-03] MEDS: Clopidogrel Bisulfate 75 MG TABLET PO (09:11)
[2023-03-03] MEDS: OLANZapine 2.5 MG TABLET PO (09:11)
[2023-03-03] MEDS: Gabapentin 300 MG CAPSULE PO ×3 (09:12→21:05)
[2023-03-03] MEDS: Sennosides/Docusate Sodium TABLET 1 TAB PO ×2 (09:12→21:06)
[2023-03-03] MEDS: HaloperidoL 5 MG TABLET PO ×3 (09:12→21:07)
[2023-03-03] MEDS: Memantine HCl 5 MG TABLET PO ×2 (09:12→21:07)
[2023-03-03] MEDS: traZODone HCL 50 MG TABLET 150 MG PO ×2 (09:15→15:02)
[2023-03-03] MEDS: Insulin Glargine,Hum.rec.anlog 100 UNIT/ML 10 ML VIAL 15 UNIT SUBCUT (09:21)
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
[2023-03-03 20:18] VITALS: BP 174/72; PULSE 73; RESP 17; TEMP 36.4; O2SAT 100
[2023-03-03] MEDS: traZODone HCL 100 MG TABLET 200 MG PO (21:05)
[2023-03-03] MEDS: OLANZapine 10 MG TABLET PO (21:05)
[2023-03-03] MEDS: Mirtazapine 7.5 MG TABLET PO (21:05)
[2023-03-03] MEDS: Melatonin 3 MG TABLET 6 MG PO (21:06)
[2023-03-04] MEDS: traZODone HCL 50 MG TABLET PO (01:44)
[2023-03-04] MEDS: LORazepam 0.5 MG TABLET PO (01:44)
[2023-03-04] MEDS: OLANZapine ODT 10 MG TAB.RAPDIS 5 MG TRANSLINGU (01:44)
[2023-03-04 09:00] VITALS: BP 162/7; PULSE 73; RESP 16; TEMP 36.7; O2SAT 99
[2023-03-04] MEDS: Atorvastatin Calcium 20 MG TABLET PO (10:02)
[2023-03-04] MEDS: Sennosides/Docusate Sodium TABLET 1 TAB PO ×2 (10:02→21:19)
[2023-03-04] MEDS: Clopidogrel Bisulfate 75 MG TABLET PO (10:02)
[2023-03-04] MEDS: Gabapentin 300 MG CAPSULE PO ×3 (10:02→21:19)
[2023-03-04] MEDS: Memantine HCl 5 MG TABLET PO ×2 (10:02→21:19)
[2023-03-04] MEDS: lisinopriL 10 MG TABLET 30 MG PO (10:02)
[2023-03-04] MEDS: OLANZapine 2.5 MG TABLET PO (10:03)
[2023-03-04] MEDS: Omeprazole 20 MG CAPSULE.DR PO (10:03)
[2023-03-04] MEDS: HaloperidoL 5 MG TABLET PO ×3 (10:03→21:19)
[2023-03-04] MEDS: traZODone HCL 50 MG TABLET 150 MG PO ×2 (10:03→14:53)
[2023-03-04] MEDS: Insulin Glargine,Hum.rec.anlog 100 UNIT/ML 10 ML VIAL 15 UNIT SUBCUT (10:04)
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
[2023-03-04] MEDS: Acetaminophen 325 MG TABLET 650 MG PO (21:18)
[2023-03-04] MEDS: traZODone HCL 100 MG TABLET 200 MG PO (21:19)
[2023-03-04] MEDS: OLANZapine 10 MG TABLET PO (21:19)
[2023-03-04] MEDS: Mirtazapine 7.5 MG TABLET PO (21:19)
[2023-03-04] MEDS: Melatonin 3 MG TABLET 6 MG PO (21:19)
[2023-03-04 21:27] VITALS: BP 205/86; PULSE 71; RESP 16; TEMP 36.1; O2SAT 99
[2023-03-04] MEDS: amLODIPine Besylate 5 MG TABLET PO (22:21)
[2023-03-05 03:42] VITALS: BP 120/70
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
[2023-03-05 11:36] VITALS: BP 135/63; PULSE 70; TEMP 36.6; O2SAT 97
[2023-03-05] MEDS: Memantine HCl 5 MG TABLET PO ×2 (11:39→20:42)
[2023-03-05] MEDS: lisinopriL 10 MG TABLET 30 MG PO (11:39)
[2023-03-05] MEDS: Gabapentin 300 MG CAPSULE PO ×3 (11:39→20:44)
[2023-03-05] MEDS: Atorvastatin Calcium 20 MG TABLET PO (11:39)
[2023-03-05] MEDS: Sennosides/Docusate Sodium TABLET 1 TAB PO ×2 (11:39→20:44)
[2023-03-05] MEDS: HaloperidoL 5 MG TABLET PO ×3 (11:40→20:44)
[2023-03-05] MEDS: Omeprazole 20 MG CAPSULE.DR PO (11:40)
[2023-03-05] MEDS: Clopidogrel Bisulfate 75 MG TABLET PO (11:40)
[2023-03-05] MEDS: traZODone HCL 50 MG TABLET 150 MG PO ×2 (11:40→16:16)
[2023-03-05] MEDS: OLANZapine 2.5 MG TABLET PO (11:41)
[2023-03-05 11:51] LABS: Glucose, Whole Blood 92 mg/dL (60-115)
--- NOTE | 2023-03-05 12:35 | PC.NURSE ---
Patient slept in until the afternoon, refused breakfast and ate a couple bites of lunch with encouragement. Patients Lantus was held d/t POC reading of 92, VAMP LINER Manisha Pa notified via tiger text.
--- NOTE | 2023-03-05 12:43 | PM.EVENT ---
Event Note Date of Service: 03/05/23 Event Note: elevated bps at night, will add amlodpine 5mg at bedtime Time Spent With Patient Time: Total time managing care of this patient today ____ minutes.
[2023-03-05 18:00] VITALS: BP 149/66; PULSE 76; RESP 16; TEMP 36.3; O2SAT 98
[2023-03-05] MEDS: Mirtazapine 7.5 MG TABLET PO (20:43)
[2023-03-05] MEDS: traZODone HCL 100 MG TABLET 200 MG PO (20:43)
[2023-03-05] MEDS: Melatonin 3 MG TABLET 6 MG PO (20:43)
[2023-03-05] MEDS: OLANZapine 10 MG TABLET PO (20:44)
[2023-03-05] MEDS: amLODIPine Besylate 5 MG TABLET PO (20:46)
[2023-03-05 20:56] LABS: Glucose, Whole Blood 145 mg/dL (60-115)
[2023-03-06 06:28] LABS: Glucose, Whole Blood 133 mg/dL (60-115)
[2023-03-06 08:59] VITALS: BP 149/68; PULSE 80; RESP 18; TEMP 36.1; O2SAT 96
[2023-03-06] MEDS: Insulin Glargine,Hum.rec.anlog 100 UNIT/ML 10 ML VIAL 15 UNIT SUBCUT (09:12)
[2023-03-06] MEDS: LORazepam 0.5 MG TABLET PO (10:37)
[2023-03-06] MEDS: OLANZapine ODT 10 MG TAB.RAPDIS 5 MG TRANSLINGU ×2 (10:37→23:42)
--- NOTE | 2023-03-06 10:52 | PC.NURSE ---
Letty spit out all morning meds. Dr. Gonzalez notified.
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
[2023-03-06] MEDS: traZODone HCL 50 MG TABLET 150 MG PO (16:50)
[2023-03-06] MEDS: Gabapentin 300 MG CAPSULE PO ×2 (16:50→20:12)
[2023-03-06] MEDS: HaloperidoL 5 MG TABLET PO ×2 (16:50→20:11)
[2023-03-06 18:00] VITALS: BP 167/78; PULSE 89; RESP 18; TEMP 36.5; O2SAT 95
[2023-03-06] MEDS: Sennosides/Docusate Sodium TABLET 1 TAB PO (20:11)
[2023-03-06] MEDS: Memantine HCl 5 MG TABLET PO (20:11)
[2023-03-06] MEDS: Melatonin 3 MG TABLET 6 MG PO (20:12)
[2023-03-06] MEDS: OLANZapine 10 MG TABLET PO (20:12)
[2023-03-06] MEDS: amLODIPine Besylate 5 MG TABLET PO (20:13)
[2023-03-06] MEDS: traZODone HCL 100 MG TABLET 200 MG PO (20:13)
[2023-03-06 20:46] LABS: Glucose, Whole Blood 234 mg/dL (60-115)
[2023-03-06] MEDS: traZODone HCL 50 MG TABLET PO (23:44)
[2023-03-07 06:26] LABS: Glucose, Whole Blood 158 mg/dL (60-115)
[2023-03-07] MEDS: Magnesium Hydrox/Alum Hydrox 30 ML ORAL.SUSP PO (06:37)
[2023-03-07 08:10] VITALS: BP 93/51; PULSE 85; RESP 18; TEMP 36.2; O2SAT 98
[2023-03-07 08:58] VITALS: BP 105/58; PULSE 77
[2023-03-07] MEDS: Insulin Glargine,Hum.rec.anlog 100 UNIT/ML 10 ML VIAL 15 UNIT SUBCUT (09:01)
[2023-03-07] MEDS: HaloperidoL 5 MG TABLET PO ×3 (09:02→20:38)
[2023-03-07] MEDS: Acetaminophen 325 MG TABLET 650 MG PO (09:02)
[2023-03-07] MEDS: Sennosides/Docusate Sodium TABLET 1 TAB PO ×2 (09:02→20:38)
[2023-03-07] MEDS: Gabapentin 300 MG CAPSULE PO ×3 (09:02→20:38)
[2023-03-07] MEDS: Clopidogrel Bisulfate 75 MG TABLET PO (09:02)
[2023-03-07] MEDS: OLANZapine 2.5 MG TABLET PO (09:02)
[2023-03-07] MEDS: Omeprazole 20 MG CAPSULE.DR PO (09:02)
[2023-03-07] MEDS: Memantine HCl 5 MG TABLET PO ×2 (09:03→20:38)
[2023-03-07] MEDS: Atorvastatin Calcium 20 MG TABLET PO (09:03)
[2023-03-07] MEDS: traZODone HCL 50 MG TABLET 150 MG PO ×2 (09:03→15:54)
--- NOTE | 2023-03-07 10:45 | PC.NURSE ---
At approximately 0810 this functional tester [employer] was alerted by another RN that Letty yelled out and slumped over to her left side. Upon assessment she was alert and oriented to self only which is her baseline and her bp was 93/51 and Letty reported feeling dizzy. Dr. Gonzalez notified and she was wheeled back to her room and juice and water provided which she accepted and drank. Letty laid down in bed and approximately 3 minutes later she was observed walking on the unit with a steady gait and dancing. BP rechecked approximately 45 minutes later and 105/58 and she declined dizziness at this time. Lisinopril held however all other morning medications accepted and Dr. Gonzalez notified. She has been up and walking around and had a snack and ate fluids. Will continue to monitor for s/sx of hypotension.
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
[2023-03-07 18:00] VITALS: BP 131/65; RESP 16; TEMP 36.7
[2023-03-07] MEDS: amLODIPine Besylate 5 MG TABLET PO (20:37)
[2023-03-07] MEDS: Melatonin 3 MG TABLET 6 MG PO (20:38)
[2023-03-07] MEDS: OLANZapine 10 MG TABLET PO (20:38)
[2023-03-07] MEDS: traZODone HCL 100 MG TABLET 200 MG PO (20:38)
[2023-03-07 21:48] LABS: Glucose, Whole Blood 234 mg/dL (60-115)
[2023-03-08] MEDS: Omeprazole 20 MG CAPSULE.DR PO (05:52)
[2023-03-08 06:00] VITALS: BP 130/76; PULSE 76; RESP 18; TEMP 36.8; O2SAT 98
[2023-03-08] MEDS: Acetaminophen 325 MG TABLET 650 MG PO (06:01)
[2023-03-08 06:41] LABS: Glucose, Whole Blood 149 mg/dL (60-115)
[2023-03-08] MEDS: Atorvastatin Calcium 20 MG TABLET PO (11:54)
[2023-03-08] MEDS: Clopidogrel Bisulfate 75 MG TABLET PO (11:54)
[2023-03-08] MEDS: lisinopriL 10 MG TABLET 30 MG PO (11:55)
[2023-03-08] MEDS: HaloperidoL 5 MG TABLET PO ×2 (11:55→15:53)
[2023-03-08] MEDS: Memantine HCl 5 MG TABLET PO (11:55)
[2023-03-08] MEDS: Gabapentin 300 MG CAPSULE PO ×2 (11:55→15:53)
[2023-03-08] MEDS: Sennosides/Docusate Sodium TABLET 1 TAB PO (11:55)
[2023-03-08] MEDS: OLANZapine 2.5 MG TABLET PO (11:55)
[2023-03-08] MEDS: traZODone HCL 50 MG TABLET 150 MG PO ×2 (11:55→15:53)
[2023-03-08] MEDS: Insulin Glargine,Hum.rec.anlog 100 UNIT/ML 10 ML VIAL 15 UNIT SUBCUT (11:57)
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
[2023-03-08 16:21] LABS: Glucose, Whole Blood 146 mg/dL (60-115)
[2023-03-08 19:49] VITALS: BP 130/65; PULSE 75; RESP 16; TEMP 36.4; O2SAT 99
[2023-03-08 20:34] LABS: Glucose, Whole Blood 198 mg/dL (60-115)
[2023-03-09 06:41] LABS: Glucose, Whole Blood 84 mg/dL (60-115)
[2023-03-09 07:55] VITALS: BP 137/62; PULSE 89; RESP 20; TEMP 36.4; O2SAT 98
[2023-03-09] MEDS: Gabapentin 300 MG CAPSULE PO ×3 (09:06→20:33)
[2023-03-09] MEDS: Memantine HCl 5 MG TABLET PO ×2 (09:06→20:33)
[2023-03-09] MEDS: Sennosides/Docusate Sodium TABLET 1 TAB PO ×2 (09:06→20:33)
[2023-03-09] MEDS: lisinopriL 10 MG TABLET 30 MG PO (09:06)
[2023-03-09] MEDS: traZODone HCL 50 MG TABLET 150 MG PO ×2 (09:06→15:49)
[2023-03-09] MEDS: OLANZapine 2.5 MG TABLET PO (09:06)
[2023-03-09] MEDS: Atorvastatin Calcium 20 MG TABLET PO (09:07)
[2023-03-09] MEDS: Clopidogrel Bisulfate 75 MG TABLET PO (09:07)
[2023-03-09] MEDS: Omeprazole 20 MG CAPSULE.DR PO (09:07)
[2023-03-09] MEDS: HaloperidoL 5 MG TABLET PO ×3 (09:07→20:33)
[2023-03-09] MEDS: Insulin Glargine,Hum.rec.anlog 100 UNIT/ML 10 ML VIAL 15 UNIT SUBCUT (09:07)
[2023-03-09 10:28] LABS: Glucose, Whole Blood 174 mg/dL (60-115)
[2023-03-09 11:41] LABS: Glucose, Whole Blood 192 mg/dL (60-115)
[2023-03-09] MEDS: Insulin Lispro 100 UNIT/ML 3 ML VIAL SUBCUT ×2 (11:43→16:30)
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
[2023-03-09 16:30] LABS: Glucose, Whole Blood 273 mg/dL (60-115)
[2023-03-09 19:52] VITALS: BP 115/55; PULSE 71; RESP 16; TEMP 36.5; O2SAT 98
[2023-03-09 20:15] LABS: Glucose, Whole Blood 129 mg/dL (60-115)
[2023-03-09] MEDS: Melatonin 3 MG TABLET 6 MG PO (20:33)
[2023-03-09] MEDS: amLODIPine Besylate 5 MG TABLET PO (20:33)
[2023-03-09] MEDS: OLANZapine 10 MG TABLET PO (20:33)
[2023-03-09] MEDS: Acetaminophen 325 MG TABLET 650 MG PO (20:33)
[2023-03-09] MEDS: traZODone HCL 100 MG TABLET 200 MG PO (20:33)
[2023-03-10 06:00] VITALS: BP 128/66; PULSE 77; RESP 20; TEMP 36.4; O2SAT 97
[2023-03-10] MEDS: Omeprazole 20 MG CAPSULE.DR PO (06:07)
[2023-03-10 06:34] LABS: Glucose, Whole Blood 131 mg/dL (60-115)
[2023-03-10] MEDS: lisinopriL 10 MG TABLET 30 MG PO (09:52)
[2023-03-10] MEDS: Clopidogrel Bisulfate 75 MG TABLET PO (09:53)
[2023-03-10] MEDS: HaloperidoL 5 MG TABLET PO ×3 (09:53→20:55)
[2023-03-10] MEDS: Atorvastatin Calcium 20 MG TABLET PO (09:53)
[2023-03-10] MEDS: Gabapentin 300 MG CAPSULE PO ×3 (09:53→20:55)
[2023-03-10] MEDS: Memantine HCl 5 MG TABLET PO ×2 (09:53→20:56)
[2023-03-10] MEDS: OLANZapine 2.5 MG TABLET PO (09:53)
[2023-03-10] MEDS: traZODone HCL 50 MG TABLET 150 MG PO ×2 (09:53→15:37)
[2023-03-10] MEDS: Sennosides/Docusate Sodium TABLET 1 TAB PO ×2 (09:53→20:58)
[2023-03-10] MEDS: Insulin Glargine,Hum.rec.anlog 100 UNIT/ML 10 ML VIAL 15 UNIT SUBCUT (09:54)
[2023-03-10 11:19] LABS: Glucose, Whole Blood 263 mg/dL (60-115)
[2023-03-10] MEDS: Insulin Lispro 100 UNIT/ML 3 ML VIAL SUBCUT ×2 (11:33→17:15)
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
[2023-03-10 16:26] LABS: Glucose, Whole Blood 169 mg/dL (60-115)
[2023-03-10 18:00] VITALS: BP 152/77; PULSE 70; RESP 18; TEMP 36.2; O2SAT 97
[2023-03-10 20:24] LABS: Glucose, Whole Blood 98 mg/dL (60-115)
[2023-03-10] MEDS: traZODone HCL 100 MG TABLET 200 MG PO (20:54)
[2023-03-10] MEDS: Acetaminophen 325 MG TABLET 650 MG PO (20:55)
[2023-03-10] MEDS: Melatonin 3 MG TABLET 6 MG PO (20:55)
[2023-03-10] MEDS: OLANZapine 10 MG TABLET PO (20:56)
[2023-03-10] MEDS: amLODIPine Besylate 5 MG TABLET PO (20:56)
[2023-03-11 06:00] VITALS: BP 97/66; PULSE 89; RESP 18; TEMP 36.3; O2SAT 94
[2023-03-11] MEDS: Omeprazole 20 MG CAPSULE.DR PO (06:12)
[2023-03-11 06:48] LABS: Glucose, Whole Blood 98 mg/dL (60-115)
[2023-03-11] MEDS: OLANZapine 2.5 MG TABLET PO (08:01)
[2023-03-11] MEDS: traZODone HCL 50 MG TABLET 150 MG PO ×2 (08:01→15:37)
[2023-03-11] MEDS: lisinopriL 10 MG TABLET 30 MG PO (08:01)
[2023-03-11] MEDS: HaloperidoL 5 MG TABLET PO ×3 (08:01→20:15)
[2023-03-11] MEDS: Sennosides/Docusate Sodium TABLET 1 TAB PO ×2 (08:01→20:16)
[2023-03-11] MEDS: Insulin Glargine,Hum.rec.anlog 100 UNIT/ML 10 ML VIAL 15 UNIT SUBCUT (08:02)
[2023-03-11] MEDS: Gabapentin 300 MG CAPSULE PO ×3 (08:02→20:16)
[2023-03-11] MEDS: Memantine HCl 5 MG TABLET PO ×2 (08:02→20:15)
[2023-03-11] MEDS: Atorvastatin Calcium 20 MG TABLET PO (08:03)
[2023-03-11] MEDS: Clopidogrel Bisulfate 75 MG TABLET PO (08:03)
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
[2023-03-11 11:23] LABS: Glucose, Whole Blood 147 mg/dL (60-115)
[2023-03-11 16:26] LABS: Glucose, Whole Blood 122 mg/dL (60-115)
[2023-03-11] MEDS: amLODIPine Besylate 5 MG TABLET PO (20:15)
[2023-03-11] MEDS: Melatonin 3 MG TABLET 6 MG PO (20:16)
[2023-03-11] MEDS: OLANZapine 10 MG TABLET PO (20:16)
[2023-03-11] MEDS: traZODone HCL 100 MG TABLET 200 MG PO (20:16)
[2023-03-11 21:33] LABS: Glucose, Whole Blood 141 mg/dL (60-115)
[2023-03-12] MEDS: traZODone HCL 50 MG TABLET PO (01:01)
[2023-03-12] MEDS: Omeprazole 20 MG CAPSULE.DR PO (05:59)
[2023-03-12 06:38] LABS: Glucose, Whole Blood 112 mg/dL (60-115)
[2023-03-12 07:55] VITALS: BP 172/74; PULSE 74; RESP 18; TEMP 36.8; O2SAT 97
[2023-03-12] MEDS: Atorvastatin Calcium 20 MG TABLET PO (08:27)
[2023-03-12] MEDS: Insulin Glargine,Hum.rec.anlog 100 UNIT/ML 10 ML VIAL 15 UNIT SUBCUT (08:27)
[2023-03-12] MEDS: Clopidogrel Bisulfate 75 MG TABLET PO (08:27)
[2023-03-12] MEDS: HaloperidoL 5 MG TABLET PO ×3 (08:28→19:58)
[2023-03-12] MEDS: OLANZapine 2.5 MG TABLET PO (08:28)
[2023-03-12] MEDS: traZODone HCL 50 MG TABLET 150 MG PO ×2 (08:28→14:18)
[2023-03-12] MEDS: Memantine HCl 5 MG TABLET PO ×2 (08:28→19:57)
[2023-03-12] MEDS: lisinopriL 10 MG TABLET 30 MG PO (08:28)
[2023-03-12] MEDS: Sennosides/Docusate Sodium TABLET 1 TAB PO ×2 (08:28→19:57)
[2023-03-12] MEDS: Gabapentin 300 MG CAPSULE PO ×3 (08:28→19:56)
[2023-03-12 11:31] LABS: Glucose, Whole Blood 180 mg/dL (60-115)
[2023-03-12] MEDS: Insulin Lispro 100 UNIT/ML 3 ML VIAL SUBCUT ×2 (11:34→21:33)
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
[2023-03-12 18:00] VITALS: BP 117/58; PULSE 72; RESP 17; TEMP 36.6; O2SAT 99
[2023-03-12] MEDS: Melatonin 3 MG TABLET 6 MG PO (19:55)
[2023-03-12] MEDS: traZODone HCL 100 MG TABLET 200 MG PO (19:56)
[2023-03-12] MEDS: OLANZapine 10 MG TABLET PO (19:56)
[2023-03-12] MEDS: amLODIPine Besylate 5 MG TABLET PO (19:57)
[2023-03-12 20:16] LABS: Glucose, Whole Blood 178 mg/dL (60-115)
[2023-03-13] MEDS: Omeprazole 20 MG CAPSULE.DR PO (05:48)
[2023-03-13 06:23] LABS: Glucose, Whole Blood 108 mg/dL (60-115)
[2023-03-13 07:55] VITALS: BP 146/77; PULSE 96; RESP 18; TEMP 36.8; O2SAT 97
[2023-03-13] MEDS: lisinopriL 10 MG TABLET 30 MG PO (08:27)
[2023-03-13] MEDS: HaloperidoL 5 MG TABLET PO ×3 (08:27→20:16)
[2023-03-13] MEDS: Gabapentin 300 MG CAPSULE PO ×3 (08:27→20:16)
[2023-03-13] MEDS: Atorvastatin Calcium 20 MG TABLET PO (08:28)
[2023-03-13] MEDS: OLANZapine 2.5 MG TABLET PO (08:28)
[2023-03-13] MEDS: Clopidogrel Bisulfate 75 MG TABLET PO (08:28)
[2023-03-13] MEDS: Memantine HCl 5 MG TABLET PO ×2 (08:28→20:17)
[2023-03-13] MEDS: Sennosides/Docusate Sodium TABLET 1 TAB PO ×2 (08:28→20:17)
[2023-03-13] MEDS: Insulin Glargine,Hum.rec.anlog 100 UNIT/ML 10 ML VIAL 15 UNIT SUBCUT (08:28)
[2023-03-13] MEDS: traZODone HCL 50 MG TABLET 150 MG PO ×2 (08:28→14:34)
[2023-03-13 11:29] LABS: Glucose, Whole Blood 221 mg/dL (60-115)
[2023-03-13] MEDS: Insulin Lispro 100 UNIT/ML 3 ML VIAL SUBCUT ×2 (11:32→16:44)
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
[2023-03-13 16:37] LABS: Glucose, Whole Blood 215 mg/dL (60-115)
[2023-03-13 18:00] VITALS: BP 139/67; PULSE 92; RESP 16; TEMP 36.3; O2SAT 97
[2023-03-13] MEDS: amLODIPine Besylate 5 MG TABLET PO (20:16)
[2023-03-13] MEDS: OLANZapine 10 MG TABLET PO (20:17)
[2023-03-13] MEDS: traZODone HCL 100 MG TABLET 200 MG PO (20:17)
[2023-03-13] MEDS: Melatonin 3 MG TABLET 6 MG PO (20:17)
[2023-03-13 20:26] LABS: Glucose, Whole Blood 105 mg/dL (60-115)
[2023-03-14] MEDS: Omeprazole 20 MG CAPSULE.DR PO (05:56)
[2023-03-14 06:38] LABS: Glucose, Whole Blood 110 mg/dL (60-115)
[2023-03-14 08:00] VITALS: BP 127/78; PULSE 91; RESP 18; TEMP 36.4; O2SAT 98
[2023-03-14] MEDS: Clopidogrel Bisulfate 75 MG TABLET PO (08:08)
[2023-03-14] MEDS: traZODone HCL 50 MG TABLET 150 MG PO ×2 (08:08→14:24)
[2023-03-14] MEDS: lisinopriL 10 MG TABLET 30 MG PO (08:08)
[2023-03-14] MEDS: Atorvastatin Calcium 20 MG TABLET PO (08:08)
[2023-03-14] MEDS: Insulin Glargine,Hum.rec.anlog 100 UNIT/ML 10 ML VIAL 15 UNIT SUBCUT (08:09)
[2023-03-14] MEDS: HaloperidoL 5 MG TABLET PO ×3 (08:09→20:54)
[2023-03-14] MEDS: Memantine HCl 5 MG TABLET PO ×2 (08:09→20:54)
[2023-03-14] MEDS: Sennosides/Docusate Sodium TABLET 1 TAB PO ×2 (08:09→20:54)
[2023-03-14] MEDS: Gabapentin 300 MG CAPSULE PO ×3 (08:09→20:55)
[2023-03-14] MEDS: OLANZapine 2.5 MG TABLET PO (08:10)
[2023-03-14 11:37] LABS: Glucose, Whole Blood 132 mg/dL (60-115)
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
[2023-03-14 16:27] LABS: Glucose, Whole Blood 194 mg/dL (60-115)
[2023-03-14] MEDS: Insulin Lispro 100 UNIT/ML 3 ML VIAL SUBCUT (16:29)
[2023-03-14 18:00] VITALS: BP 122/60; PULSE 70; RESP 16; TEMP 36.1; O2SAT 97
[2023-03-14 20:46] LABS: Glucose, Whole Blood 76 mg/dL (60-115)
[2023-03-14] MEDS: traZODone HCL 100 MG TABLET 200 MG PO (20:53)
[2023-03-14] MEDS: Acetaminophen 325 MG TABLET 650 MG PO (20:54)
[2023-03-14] MEDS: OLANZapine 10 MG TABLET PO (20:54)
[2023-03-14] MEDS: Melatonin 3 MG TABLET 6 MG PO (20:54)
[2023-03-14] MEDS: amLODIPine Besylate 5 MG TABLET PO (20:55)
[2023-03-14] MEDS: traZODone HCL 50 MG TABLET PO (22:30)
[2023-03-14] MEDS: OLANZapine ODT 10 MG TAB.RAPDIS 5 MG TRANSLINGU (22:30)
[2023-03-15] MEDS: Omeprazole 20 MG CAPSULE.DR PO (06:24)
[2023-03-15 06:39] LABS: Glucose, Whole Blood 138 mg/dL (60-115)
[2023-03-15 08:30] VITALS: BP 127/59; PULSE 94; RESP 18; TEMP 36.1; O2SAT 97
[2023-03-15] MEDS: Clopidogrel Bisulfate 75 MG TABLET PO (09:10)
[2023-03-15] MEDS: Insulin Glargine,Hum.rec.anlog 100 UNIT/ML 10 ML VIAL 15 UNIT SUBCUT (09:10)
[2023-03-15] MEDS: OLANZapine 2.5 MG TABLET PO (09:11)
[2023-03-15] MEDS: traZODone HCL 50 MG TABLET 150 MG PO ×2 (09:13→15:01)
[2023-03-15] MEDS: HaloperidoL 5 MG TABLET PO ×3 (09:13→20:46)
[2023-03-15] MEDS: Atorvastatin Calcium 20 MG TABLET PO (09:13)
[2023-03-15] MEDS: Sennosides/Docusate Sodium TABLET 1 TAB PO ×2 (09:14→20:46)
[2023-03-15] MEDS: lisinopriL 10 MG TABLET 30 MG PO (09:14)
[2023-03-15] MEDS: Gabapentin 300 MG CAPSULE PO ×3 (09:14→20:46)
[2023-03-15] MEDS: Memantine HCl 5 MG TABLET PO ×2 (09:14→20:47)
[2023-03-15 11:25] LABS: Glucose, Whole Blood 190 mg/dL (60-115)
[2023-03-15] MEDS: Insulin Lispro 100 UNIT/ML 3 ML VIAL SUBCUT (11:28)
[2023-03-15 16:40] LABS: Glucose, Whole Blood 147 mg/dL (60-115)
[2023-03-15 18:00] VITALS: BP 143/69; PULSE 70; RESP 18; TEMP 36.1; O2SAT 97
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
[2023-03-15 20:26] LABS: Glucose, Whole Blood 105 mg/dL (60-115)
[2023-03-15] MEDS: amLODIPine Besylate 5 MG TABLET PO (20:46)
[2023-03-15] MEDS: traZODone HCL 100 MG TABLET 200 MG PO (20:46)
[2023-03-15] MEDS: OLANZapine 10 MG TABLET PO (20:46)
[2023-03-15] MEDS: Melatonin 3 MG TABLET 6 MG PO (20:46)
[2023-03-16] MEDS: Omeprazole 20 MG CAPSULE.DR PO (06:10)
[2023-03-16 06:31] LABS: Glucose, Whole Blood 81 mg/dL (60-115)
[2023-03-16 08:00] VITALS: BP 124/60; PULSE 62; RESP 18; TEMP 36.8; O2SAT 99
[2023-03-16] MEDS: lisinopriL 10 MG TABLET 30 MG PO (08:30)
[2023-03-16] MEDS: traZODone HCL 50 MG TABLET 150 MG PO ×2 (08:30→15:43)
[2023-03-16] MEDS: Clopidogrel Bisulfate 75 MG TABLET PO (08:31)
[2023-03-16] MEDS: HaloperidoL 5 MG TABLET PO ×3 (08:31→21:29)
[2023-03-16] MEDS: Sennosides/Docusate Sodium TABLET 1 TAB PO ×2 (08:31→21:29)
[2023-03-16] MEDS: OLANZapine 2.5 MG TABLET PO (08:31)
[2023-03-16] MEDS: Atorvastatin Calcium 20 MG TABLET PO (08:31)
[2023-03-16] MEDS: Memantine HCl 5 MG TABLET PO ×2 (08:32→21:29)
[2023-03-16] MEDS: Gabapentin 300 MG CAPSULE PO ×3 (08:32→21:29)
[2023-03-16 08:52] LABS: Glucose, Whole Blood 125 mg/dL (60-115)
[2023-03-16] MEDS: Insulin Glargine,Hum.rec.anlog 100 UNIT/ML 10 ML VIAL 15 UNIT SUBCUT (08:55)
[2023-03-16 11:35] LABS: Glucose, Whole Blood 179 mg/dL (60-115)
[2023-03-16] MEDS: Insulin Lispro 100 UNIT/ML 3 ML VIAL SUBCUT ×3 (11:37→21:36)
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
[2023-03-16 16:31] LABS: Glucose, Whole Blood 215 mg/dL (60-115)
[2023-03-16 18:00] VITALS: BP 116/58; PULSE 82; RESP 18; TEMP 36.2; O2SAT 98
[2023-03-16] MEDS: OLANZapine 10 MG TABLET PO (21:29)
[2023-03-16] MEDS: Melatonin 3 MG TABLET 6 MG PO (21:29)
[2023-03-16] MEDS: amLODIPine Besylate 5 MG TABLET PO (21:29)
[2023-03-16] MEDS: traZODone HCL 100 MG TABLET 200 MG PO (21:29)
[2023-03-16 21:36] LABS: Glucose, Whole Blood 234 mg/dL (60-115)
[2023-03-16] MEDS: Acetaminophen 325 MG TABLET 650 MG PO (21:36)
[2023-03-17] MEDS: Omeprazole 20 MG CAPSULE.DR PO (06:26)
[2023-03-17 06:45] LABS: Glucose, Whole Blood 107 mg/dL (60-115)
[2023-03-17 08:30] VITALS: BP 132/76; PULSE 78; RESP 18; TEMP 36.8; O2SAT 98
[2023-03-17] MEDS: Insulin Glargine,Hum.rec.anlog 100 UNIT/ML 10 ML VIAL 15 UNIT SUBCUT ×2 (09:11→09:14)
[2023-03-17] MEDS: HaloperidoL 5 MG TABLET PO ×3 (09:12→20:00)
[2023-03-17] MEDS: Gabapentin 300 MG CAPSULE PO ×3 (09:12→20:00)
[2023-03-17] MEDS: Memantine HCl 5 MG TABLET PO ×2 (09:12→20:00)
[2023-03-17] MEDS: Sennosides/Docusate Sodium TABLET 1 TAB PO ×2 (09:12→20:00)
[2023-03-17] MEDS: lisinopriL 10 MG TABLET 30 MG PO (09:12)
[2023-03-17] MEDS: traZODone HCL 50 MG TABLET 150 MG PO ×2 (09:12→14:33)
[2023-03-17] MEDS: OLANZapine 2.5 MG TABLET PO (09:13)
[2023-03-17] MEDS: Clopidogrel Bisulfate 75 MG TABLET PO (09:13)
[2023-03-17] MEDS: Atorvastatin Calcium 20 MG TABLET PO (09:13)
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
[2023-03-17 11:27] LABS: Glucose, Whole Blood 121 mg/dL (60-115)
[2023-03-17 16:28] LABS: Glucose, Whole Blood 157 mg/dL (60-115)
[2023-03-17] MEDS: Insulin Lispro 100 UNIT/ML 3 ML VIAL SUBCUT (16:36)
[2023-03-17 18:00] VITALS: BP 156/70; PULSE 72; RESP 18; O2SAT 96
[2023-03-17 19:58] LABS: Glucose, Whole Blood 99 mg/dL (60-115)
[2023-03-17] MEDS: traZODone HCL 100 MG TABLET 200 MG PO (20:00)
[2023-03-17] MEDS: Melatonin 3 MG TABLET 6 MG PO (20:00)
[2023-03-17] MEDS: amLODIPine Besylate 5 MG TABLET PO (20:00)
[2023-03-17] MEDS: OLANZapine 10 MG TABLET PO (20:00)
[2023-03-18] MEDS: traZODone HCL 50 MG TABLET PO (02:08)
[2023-03-18] MEDS: Acetaminophen 325 MG TABLET 650 MG PO (02:08)
[2023-03-18 06:22] LABS: Glucose, Whole Blood 161 mg/dL (60-115)
[2023-03-18] MEDS: Insulin Glargine,Hum.rec.anlog 100 UNIT/ML 10 ML VIAL 15 UNIT SUBCUT (08:24)
[2023-03-18] MEDS: Insulin Lispro 100 UNIT/ML 3 ML VIAL SUBCUT (08:24)
[2023-03-18] MEDS: OLANZapine 2.5 MG TABLET PO (08:25)
[2023-03-18] MEDS: Memantine HCl 5 MG TABLET PO ×2 (08:25→20:46)
[2023-03-18] MEDS: HaloperidoL 5 MG TABLET PO ×3 (08:25→20:46)
[2023-03-18] MEDS: lisinopriL 10 MG TABLET 30 MG PO (08:25)
[2023-03-18] MEDS: Atorvastatin Calcium 20 MG TABLET PO (08:25)
[2023-03-18] MEDS: Gabapentin 300 MG CAPSULE PO ×3 (08:25→20:46)
[2023-03-18] MEDS: traZODone HCL 50 MG TABLET 150 MG PO ×2 (08:25→14:39)
[2023-03-18] MEDS: Clopidogrel Bisulfate 75 MG TABLET PO (08:25)
[2023-03-18] MEDS: Sennosides/Docusate Sodium TABLET 1 TAB PO ×2 (08:25→20:46)
[2023-03-18] MEDS: Omeprazole 20 MG CAPSULE.DR PO (08:26)
[2023-03-18 08:30] VITALS: BP 146/76; PULSE 78; RESP 18; TEMP 37; O2SAT 96
[2023-03-18 11:19] LABS: Glucose, Whole Blood 120 mg/dL (60-115)
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
[2023-03-18 16:31] LABS: Glucose, Whole Blood 101 mg/dL (60-115)
[2023-03-18 19:35] VITALS: BP 159/70; PULSE 69; TEMP 36.1; O2SAT 95
[2023-03-18 20:21] LABS: Glucose, Whole Blood 81 mg/dL (60-115)
[2023-03-18] MEDS: amLODIPine Besylate 5 MG TABLET PO (20:45)
[2023-03-18] MEDS: Melatonin 3 MG TABLET 6 MG PO (20:45)
[2023-03-18] MEDS: OLANZapine 10 MG TABLET PO (20:46)
[2023-03-18] MEDS: traZODone HCL 100 MG TABLET 200 MG PO (20:46)
[2023-03-19 06:00] VITALS: BP 121/76; PULSE 110; RESP 18; TEMP 36.4; O2SAT 96
[2023-03-19] MEDS: Omeprazole 20 MG CAPSULE.DR PO (06:16)
[2023-03-19 06:42] LABS: Glucose, Whole Blood 86 mg/dL (60-115)
[2023-03-19 08:49] LABS: Glucose, Whole Blood 171 mg/dL (60-115)
[2023-03-19] MEDS: Insulin Glargine,Hum.rec.anlog 100 UNIT/ML 10 ML VIAL 15 UNIT SUBCUT (09:13)
[2023-03-19] MEDS: Insulin Lispro 100 UNIT/ML 3 ML VIAL SUBCUT ×3 (09:14→16:39)
[2023-03-19] MEDS: traZODone HCL 50 MG TABLET 150 MG PO ×2 (09:15→14:12)
[2023-03-19] MEDS: lisinopriL 10 MG TABLET 30 MG PO (09:15)
[2023-03-19] MEDS: Atorvastatin Calcium 20 MG TABLET PO (09:15)
[2023-03-19] MEDS: Gabapentin 300 MG CAPSULE PO ×3 (09:15→20:29)
[2023-03-19] MEDS: Memantine HCl 5 MG TABLET PO ×2 (09:15→20:29)
[2023-03-19] MEDS: Sennosides/Docusate Sodium TABLET 1 TAB PO ×2 (09:15→20:29)
[2023-03-19] MEDS: HaloperidoL 5 MG TABLET PO ×3 (09:16→20:29)
[2023-03-19] MEDS: Clopidogrel Bisulfate 75 MG TABLET PO (09:16)
[2023-03-19] MEDS: OLANZapine 2.5 MG TABLET PO (09:16)
[2023-03-19 11:41] LABS: Glucose, Whole Blood 173 mg/dL (60-115)
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
[2023-03-19 16:15] LABS: Glucose, Whole Blood 191 mg/dL (60-115)
[2023-03-19] MEDS: Acetaminophen 325 MG TABLET 650 MG PO (17:50)
[2023-03-19 19:49] VITALS: BP 117/58; PULSE 81; RESP 16; TEMP 36.5; O2SAT 96
[2023-03-19] MEDS: OLANZapine 10 MG TABLET PO (20:29)
[2023-03-19] MEDS: traZODone HCL 100 MG TABLET 200 MG PO (20:29)
[2023-03-19] MEDS: amLODIPine Besylate 5 MG TABLET PO (20:29)
[2023-03-19] MEDS: Melatonin 3 MG TABLET 6 MG PO (20:30)
[2023-03-19 20:41] LABS: Glucose, Whole Blood 88 mg/dL (60-115)
[2023-03-20] MEDS: OLANZapine ODT 10 MG TAB.RAPDIS 5 MG TRANSLINGU (01:28)
[2023-03-20] MEDS: traZODone HCL 50 MG TABLET PO ×2 (01:29→02:36)
[2023-03-20] MEDS: Acetaminophen 325 MG TABLET 650 MG PO ×3 (02:35→19:43)
[2023-03-20 06:31] LABS: Glucose, Whole Blood 135 mg/dL (60-115)
[2023-03-20 08:00] VITALS: BP 139/76; PULSE 82; RESP 18; TEMP 36.6; O2SAT 97
[2023-03-20] MEDS: Clopidogrel Bisulfate 75 MG TABLET PO (08:14)
[2023-03-20] MEDS: Omeprazole 20 MG CAPSULE.DR PO (08:14)
[2023-03-20] MEDS: lisinopriL 10 MG TABLET 30 MG PO (08:14)
[2023-03-20] MEDS: Memantine HCl 5 MG TABLET PO ×2 (08:14→19:44)
[2023-03-20] MEDS: traZODone HCL 50 MG TABLET 150 MG PO ×2 (08:14→14:02)
[2023-03-20] MEDS: Atorvastatin Calcium 20 MG TABLET PO (08:15)
[2023-03-20] MEDS: HaloperidoL 5 MG TABLET PO ×3 (08:15→19:44)
[2023-03-20] MEDS: Gabapentin 300 MG CAPSULE PO ×3 (08:15→19:44)
[2023-03-20] MEDS: Sennosides/Docusate Sodium TABLET 1 TAB PO ×2 (08:15→19:44)
[2023-03-20] MEDS: OLANZapine 2.5 MG TABLET PO (08:15)
[2023-03-20] MEDS: Insulin Glargine,Hum.rec.anlog 100 UNIT/ML 10 ML VIAL 15 UNIT SUBCUT (08:15)
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
[2023-03-20 11:35] LABS: Glucose, Whole Blood 141 mg/dL (60-115)
[2023-03-20 16:41] LABS: Glucose, Whole Blood 216 mg/dL (60-115)
[2023-03-20] MEDS: Insulin Lispro 100 UNIT/ML 3 ML VIAL SUBCUT (16:47)
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
[2023-03-20 18:00] VITALS: BP 126/61; PULSE 84; RESP 17; TEMP 36.6; O2SAT 98
[2023-03-20] MEDS: traZODone HCL 100 MG TABLET 200 MG PO (19:44)
[2023-03-20] MEDS: OLANZapine 10 MG TABLET PO (19:44)
[2023-03-20] MEDS: Melatonin 3 MG TABLET 6 MG PO (19:44)
[2023-03-20] MEDS: amLODIPine Besylate 5 MG TABLET PO (19:44)
[2023-03-20 20:08] LABS: Glucose, Whole Blood 69 mg/dL (60-115)
[2023-03-21] MEDS: OLANZapine ODT 10 MG TAB.RAPDIS 5 MG TRANSLINGU (01:53)
[2023-03-21] MEDS: Omeprazole 20 MG CAPSULE.DR PO (05:49)
[2023-03-21 06:52] LABS: Glucose, Whole Blood 146 mg/dL (60-115)
[2023-03-21 07:59] VITALS: BP 147/64; PULSE 81; RESP 18; TEMP 36.3; O2SAT 97
[2023-03-21] MEDS: Memantine HCl 5 MG TABLET PO ×2 (08:02→20:43)
[2023-03-21] MEDS: Atorvastatin Calcium 20 MG TABLET PO (08:02)
[2023-03-21] MEDS: traZODone HCL 50 MG TABLET 150 MG PO ×2 (08:02→15:48)
[2023-03-21] MEDS: Sennosides/Docusate Sodium TABLET 1 TAB PO ×2 (08:02→20:43)
[2023-03-21] MEDS: Gabapentin 300 MG CAPSULE PO ×3 (08:02→20:42)
[2023-03-21] MEDS: lisinopriL 10 MG TABLET 30 MG PO (08:02)
[2023-03-21] MEDS: Insulin Glargine,Hum.rec.anlog 100 UNIT/ML 10 ML VIAL 15 UNIT SUBCUT (08:03)
[2023-03-21] MEDS: OLANZapine 2.5 MG TABLET PO (08:03)
[2023-03-21] MEDS: HaloperidoL 5 MG TABLET PO ×3 (08:03→20:43)
[2023-03-21] MEDS: Clopidogrel Bisulfate 75 MG TABLET PO (08:03)
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
[2023-03-21 11:30] LABS: Glucose, Whole Blood 160 mg/dL (60-115)
--- NOTE | 2023-03-21 13:46 | PC.NURSE ---
Pt. did not eat lunch. Held 2 units of lispro coverage for POC 160.
[2023-03-21 18:00] VITALS: BP 127/60; PULSE 70; RESP 16; TEMP 36.3; O2SAT 96
[2023-03-21] MEDS: amLODIPine Besylate 5 MG TABLET PO (20:42)
[2023-03-21] MEDS: traZODone HCL 100 MG TABLET 200 MG PO (20:43)
[2023-03-21] MEDS: Melatonin 3 MG TABLET 6 MG PO (20:43)
[2023-03-21] MEDS: OLANZapine 10 MG TABLET PO (20:43)
[2023-03-21 21:51] LABS: Glucose, Whole Blood 143 mg/dL (60-115)
[2023-03-21 22:05] LABS: Glucose, Whole Blood 181 mg/dL (60-115)
[2023-03-22] MEDS: traZODone HCL 50 MG TABLET PO (00:25)
[2023-03-22] MEDS: OLANZapine ODT 10 MG TAB.RAPDIS 5 MG TRANSLINGU (00:25)
[2023-03-22] MEDS: Acetaminophen 325 MG TABLET 650 MG PO (00:25)
[2023-03-22 07:01] LABS: Glucose, Whole Blood 115 mg/dL (60-115)
[2023-03-22 08:00] VITALS: BP 152/69; PULSE 70; RESP 18; TEMP 36.8; O2SAT 97
[2023-03-22] MEDS: OLANZapine 2.5 MG TABLET PO (09:00)
[2023-03-22] MEDS: lisinopriL 10 MG TABLET 30 MG PO (09:00)
[2023-03-22] MEDS: traZODone HCL 50 MG TABLET 150 MG PO ×2 (09:00→15:17)
[2023-03-22] MEDS: Clopidogrel Bisulfate 75 MG TABLET PO (09:00)
[2023-03-22] MEDS: Insulin Glargine,Hum.rec.anlog 100 UNIT/ML 10 ML VIAL 15 UNIT SUBCUT (09:01)
[2023-03-22] MEDS: Gabapentin 300 MG CAPSULE PO ×3 (09:01→21:08)
[2023-03-22] MEDS: Omeprazole 20 MG CAPSULE.DR PO (09:01)
[2023-03-22] MEDS: Memantine HCl 5 MG TABLET PO ×2 (09:01→21:07)
[2023-03-22] MEDS: HaloperidoL 5 MG TABLET PO ×3 (09:01→21:08)
[2023-03-22] MEDS: Atorvastatin Calcium 20 MG TABLET PO (09:01)
[2023-03-22] MEDS: Sennosides/Docusate Sodium TABLET 1 TAB PO ×2 (09:01→21:07)
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
[2023-03-22 11:15] LABS: Glucose, Whole Blood 115 mg/dL (60-115)
[2023-03-22 16:27] LABS: Glucose, Whole Blood 193 mg/dL (60-115)
[2023-03-22] MEDS: Insulin Lispro 100 UNIT/ML 3 ML VIAL SUBCUT (16:39)
[2023-03-22 18:00] VITALS: BP 146/68; PULSE 62; RESP 16; TEMP 36.1; O2SAT 99
[2023-03-22] MEDS: OLANZapine 10 MG TABLET PO (21:07)
[2023-03-22] MEDS: Melatonin 3 MG TABLET 6 MG PO (21:08)
[2023-03-22] MEDS: traZODone HCL 100 MG TABLET 200 MG PO (21:08)
[2023-03-22] MEDS: amLODIPine Besylate 5 MG TABLET PO (21:12)
[2023-03-22 21:24] LABS: Glucose, Whole Blood 74 mg/dL (60-115)
[2023-03-23 06:17] LABS: Glucose, Whole Blood 83 mg/dL (60-115)
[2023-03-23] MEDS: Atorvastatin Calcium 20 MG TABLET PO (08:19)
[2023-03-23] MEDS: Clopidogrel Bisulfate 75 MG TABLET PO (08:19)
[2023-03-23] MEDS: Omeprazole 20 MG CAPSULE.DR PO (08:19)
[2023-03-23] MEDS: Insulin Glargine,Hum.rec.anlog 100 UNIT/ML 10 ML VIAL 15 UNIT SUBCUT (08:21)
[2023-03-23 08:30] VITALS: BP 111/56; PULSE 68; RESP 18; TEMP 37; O2SAT 97
[2023-03-23 08:48] LABS: Glucose, Whole Blood 101 mg/dL (60-115)
[2023-03-23] MEDS: Milk of Magnesia 30 ML ORAL.SUSP PO (09:26)
[2023-03-23 11:14] LABS: Glucose, Whole Blood 134 mg/dL (60-115)
[2023-03-23] MEDS: traZODone HCL 50 MG TABLET 150 MG PO (14:07)
[2023-03-23] MEDS: HaloperidoL 5 MG TABLET PO ×2 (14:15→20:01)
[2023-03-23] MEDS: Gabapentin 300 MG CAPSULE PO ×2 (14:15→20:01)
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
[2023-03-23 16:27] LABS: Glucose, Whole Blood 129 mg/dL (60-115)
[2023-03-23 18:00] VITALS: BP 116/68; PULSE 107; RESP 18; TEMP 36.4; O2SAT 92
[2023-03-23] MEDS: amLODIPine Besylate 5 MG TABLET PO (20:00)
[2023-03-23] MEDS: traZODone HCL 100 MG TABLET 200 MG PO (20:01)
[2023-03-23] MEDS: Sennosides/Docusate Sodium TABLET 1 TAB PO (20:01)
[2023-03-23] MEDS: Memantine HCl 5 MG TABLET PO (20:01)
[2023-03-23] MEDS: OLANZapine 10 MG TABLET PO (20:01)
[2023-03-23] MEDS: Melatonin 3 MG TABLET 6 MG PO (20:01)
[2023-03-23 20:12] LABS: Glucose, Whole Blood 107 mg/dL (60-115)
[2023-03-24] MEDS: traZODone HCL 50 MG TABLET PO ×2 (03:14→04:18)
[2023-03-24] MEDS: OLANZapine ODT 10 MG TAB.RAPDIS 5 MG TRANSLINGU ×2 (03:14→18:38)
[2023-03-24] MEDS: Acetaminophen 325 MG TABLET 650 MG PO ×2 (04:20→18:33)
[2023-03-24 06:15] LABS: Glucose, Whole Blood 179 mg/dL (60-115)
[2023-03-24 08:00] VITALS: BP 144/63; PULSE 80; RESP 18; TEMP 36.3; O2SAT 97
[2023-03-24] MEDS: Insulin Glargine,Hum.rec.anlog 100 UNIT/ML 10 ML VIAL 15 UNIT SUBCUT (08:44)
[2023-03-24] MEDS: Clopidogrel Bisulfate 75 MG TABLET PO (08:45)
[2023-03-24] MEDS: Omeprazole 20 MG CAPSULE.DR PO (08:45)
[2023-03-24] MEDS: Memantine HCl 5 MG TABLET PO ×2 (08:45→20:17)
[2023-03-24] MEDS: Atorvastatin Calcium 20 MG TABLET PO (08:45)
[2023-03-24] MEDS: OLANZapine 2.5 MG TABLET PO (08:45)
[2023-03-24] MEDS: Sennosides/Docusate Sodium TABLET 1 TAB PO ×2 (08:45→20:18)
[2023-03-24] MEDS: Gabapentin 300 MG CAPSULE PO ×3 (08:45→20:18)
[2023-03-24] MEDS: HaloperidoL 5 MG TABLET PO ×3 (08:45→20:18)
[2023-03-24] MEDS: traZODone HCL 50 MG TABLET 150 MG PO ×2 (08:46→15:33)
[2023-03-24] MEDS: lisinopriL 10 MG TABLET 30 MG PO (08:46)
[2023-03-24] MEDS: Insulin Lispro 100 UNIT/ML 3 ML VIAL SUBCUT (09:00)
[2023-03-24 11:34] LABS: Glucose, Whole Blood 71 mg/dL (60-115)
[2023-03-24 12:59] LABS: Glucose, Whole Blood 107 mg/dL (60-115)
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
[2023-03-24 16:05] LABS: Glucose, Whole Blood 125 mg/dL (60-115)
[2023-03-24] MEDS: traZODone HCL 100 MG TABLET 200 MG PO (20:17)
[2023-03-24] MEDS: OLANZapine 10 MG TABLET PO (20:17)
[2023-03-24] MEDS: Melatonin 3 MG TABLET 6 MG PO (20:18)
[2023-03-24] MEDS: LORazepam 1 MG TABLET PO (20:18)
[2023-03-24] MEDS: amLODIPine Besylate 5 MG TABLET PO (20:20)
[2023-03-24 20:39] VITALS: BP 132/64; PULSE 81; RESP 17; TEMP 35.8; O2SAT 97
[2023-03-24 21:59] LABS: Glucose, Whole Blood 155 mg/dL (60-115)
[2023-03-25] MEDS: traZODone HCL 50 MG TABLET PO (00:14)
[2023-03-25] MEDS: Omeprazole 20 MG CAPSULE.DR PO (05:57)
[2023-03-25 06:32] LABS: Glucose, Whole Blood 102 mg/dL (60-115)
[2023-03-25 08:30] VITALS: BP 133/62; PULSE 82; RESP 18; TEMP 35.7; O2SAT 97
[2023-03-25] MEDS: Atorvastatin Calcium 20 MG TABLET PO (10:34)
[2023-03-25] MEDS: Clopidogrel Bisulfate 75 MG TABLET PO (10:34)
[2023-03-25] MEDS: lisinopriL 10 MG TABLET 30 MG PO (10:34)
[2023-03-25] MEDS: Memantine HCl 5 MG TABLET PO ×2 (10:35→20:38)
[2023-03-25] MEDS: HaloperidoL 5 MG TABLET PO ×3 (10:35→20:38)
[2023-03-25] MEDS: Gabapentin 300 MG CAPSULE PO ×3 (10:35→20:38)
[2023-03-25] MEDS: Sennosides/Docusate Sodium TABLET 1 TAB PO ×2 (10:35→20:38)
[2023-03-25] MEDS: traZODone HCL 50 MG TABLET 150 MG PO ×2 (10:35→16:11)
[2023-03-25] MEDS: OLANZapine 2.5 MG TABLET PO (10:35)
[2023-03-25] MEDS: Insulin Glargine,Hum.rec.anlog 100 UNIT/ML 10 ML VIAL 15 UNIT SUBCUT (10:36)
[2023-03-25 11:23] LABS: Glucose, Whole Blood 174 mg/dL (60-115)
[2023-03-25] MEDS: Insulin Lispro 100 UNIT/ML 3 ML VIAL SUBCUT (11:46)
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
[2023-03-25 16:07] LABS: Glucose, Whole Blood 84 mg/dL (60-115)
[2023-03-25 18:00] VITALS: BP 146/67; PULSE 67; RESP 18; TEMP 36.1; O2SAT 97
[2023-03-25 20:21] LABS: Glucose, Whole Blood 90 mg/dL (60-115)
[2023-03-25] MEDS: OLANZapine 10 MG TABLET PO (20:38)
[2023-03-25] MEDS: amLODIPine Besylate 5 MG TABLET PO (20:38)
[2023-03-25] MEDS: Melatonin 3 MG TABLET 6 MG PO (20:38)
[2023-03-25] MEDS: traZODone HCL 100 MG TABLET 200 MG PO (20:38)
[2023-03-26 06:56] LABS: Glucose, Whole Blood 100 mg/dL (60-115)
[2023-03-26 07:55] VITALS: BP 128/61; PULSE 66; RESP 18; TEMP 36.7; O2SAT 98
[2023-03-26] MEDS: Atorvastatin Calcium 20 MG TABLET PO (08:03)
[2023-03-26] MEDS: Insulin Glargine,Hum.rec.anlog 100 UNIT/ML 10 ML VIAL 15 UNIT SUBCUT (08:04)
[2023-03-26] MEDS: OLANZapine 2.5 MG TABLET PO (08:04)
[2023-03-26] MEDS: Omeprazole 20 MG CAPSULE.DR PO (08:04)
[2023-03-26] MEDS: traZODone HCL 50 MG TABLET 150 MG PO ×2 (08:04→15:56)
[2023-03-26] MEDS: Memantine HCl 5 MG TABLET PO ×2 (08:04→20:10)
[2023-03-26] MEDS: HaloperidoL 5 MG TABLET PO ×3 (08:04→20:11)
[2023-03-26] MEDS: Clopidogrel Bisulfate 75 MG TABLET PO (08:04)
[2023-03-26] MEDS: Sennosides/Docusate Sodium TABLET 1 TAB PO ×2 (08:04→20:12)
[2023-03-26] MEDS: Gabapentin 300 MG CAPSULE PO ×3 (08:04→20:11)
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
[2023-03-26 11:35] LABS: Glucose, Whole Blood 136 mg/dL (60-115)
[2023-03-26 16:29] LABS: Glucose, Whole Blood 108 mg/dL (60-115)
[2023-03-26 18:00] VITALS: BP 143/70; PULSE 85; RESP 18; TEMP 36.2; O2SAT 98
[2023-03-26] MEDS: OLANZapine 10 MG TABLET PO (20:11)
[2023-03-26] MEDS: traZODone HCL 100 MG TABLET 200 MG PO (20:11)
[2023-03-26] MEDS: Acetaminophen 325 MG TABLET 650 MG PO (20:11)
[2023-03-26] MEDS: Melatonin 3 MG TABLET 6 MG PO (20:12)
[2023-03-26] MEDS: amLODIPine Besylate 5 MG TABLET PO (20:15)
[2023-03-26 21:09] LABS: Glucose, Whole Blood 101 mg/dL (60-115)
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
[2023-03-27] MEDS: LORazepam 1 MG TABLET PO ×2 (03:23→11:56)
[2023-03-27] MEDS: OLANZapine ODT 10 MG TAB.RAPDIS 5 MG TRANSLINGU ×2 (03:23→12:29)
[2023-03-27 06:00] VITALS: BP 130/62; PULSE 97; RESP 18; TEMP 36.2; O2SAT 99
[2023-03-27 06:34] LABS: Glucose, Whole Blood 92 mg/dL (60-115)
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
[2023-03-27 11:35] LABS: Glucose, Whole Blood 111 mg/dL (60-115)
[2023-03-27] MEDS: Insulin Glargine,Hum.rec.anlog 100 UNIT/ML 10 ML VIAL 15 UNIT SUBCUT (11:53)
[2023-03-27] MEDS: Clopidogrel Bisulfate 75 MG TABLET PO (11:56)
[2023-03-27] MEDS: Gabapentin 300 MG CAPSULE PO ×2 (11:56→20:23)
[2023-03-27] MEDS: Omeprazole 20 MG CAPSULE.DR PO (11:56)
[2023-03-27] MEDS: Sennosides/Docusate Sodium TABLET 1 TAB PO ×2 (11:56→20:22)
[2023-03-27] MEDS: Atorvastatin Calcium 20 MG TABLET PO (11:56)
[2023-03-27] MEDS: lisinopriL 10 MG TABLET 30 MG PO (11:56)
[2023-03-27] MEDS: OLANZapine 2.5 MG TABLET PO (11:56)
[2023-03-27] MEDS: HaloperidoL 5 MG TABLET PO ×2 (11:56→20:22)
[2023-03-27] MEDS: Memantine HCl 5 MG TABLET PO ×2 (11:57→20:23)
[2023-03-27] MEDS: traZODone HCL 50 MG TABLET 150 MG PO (11:57)
[2023-03-27] MEDS: bisacodyL 5 MG TABLET.DR 10 MG PO (12:28)
[2023-03-27 16:25] LABS: Glucose, Whole Blood 98 mg/dL (60-115)
[2023-03-27 20:03] LABS: Glucose, Whole Blood 89 mg/dL (60-115)
[2023-03-27] MEDS: OLANZapine 10 MG TABLET PO (20:21)
[2023-03-27] MEDS: traZODone HCL 100 MG TABLET 200 MG PO (20:21)
[2023-03-27] MEDS: amLODIPine Besylate 5 MG TABLET PO (20:22)
[2023-03-27] MEDS: Melatonin 3 MG TABLET 6 MG PO (21:01)
[2023-03-27 22:00] VITALS: BP 123/62; PULSE 73; RESP 16; TEMP 36.1; O2SAT 95
[2023-03-28] VITALS (7 sets, daily range): BP systolic 108–146; BP diastolic 52–70; PULSE 86–97; RESP 16–18; TEMP 36.6; O2SAT 96–99
[2023-03-28] MEDS: Acetaminophen 325 MG TABLET 650 MG PO (01:54)
[2023-03-28] MEDS: traZODone HCL 50 MG TABLET PO (01:54)
[2023-03-28] MEDS: LORazepam 1 MG TABLET PO (01:54)
[2023-03-28] MEDS: Omeprazole 20 MG CAPSULE.DR PO (06:25)
[2023-03-28 06:36] LABS: Glucose, Whole Blood 219 mg/dL (60-115)
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
--- NOTE | 2023-03-28 08:00 | HO.PSYEVENT2 ---
Event Note Date of Service: 03/28/23 Psych On-Call Event Note: pt s/p fall head injury c/o pain ? confusioin vs reviewed o2 98 105/70 p 89 plan ck orthos head ct hosp consult Time Spent With Patient Time: Total time managing care of this patient today ____ minutes.
[2023-03-28] MEDS: traZODone HCL 50 MG TABLET 150 MG PO ×2 (08:51→16:37)
[2023-03-28] MEDS: HaloperidoL 5 MG TABLET PO ×3 (08:51→20:48)
[2023-03-28] MEDS: Gabapentin 300 MG CAPSULE PO ×3 (08:51→20:48)
[2023-03-28] MEDS: Clopidogrel Bisulfate 75 MG TABLET PO (08:51)
[2023-03-28] MEDS: Sennosides/Docusate Sodium TABLET 1 TAB PO ×2 (08:51→20:48)
[2023-03-28] MEDS: Memantine HCl 5 MG TABLET PO ×2 (08:51→20:48)
[2023-03-28] MEDS: lisinopriL 10 MG TABLET 30 MG PO (08:51)
[2023-03-28] MEDS: Atorvastatin Calcium 20 MG TABLET PO (08:52)
[2023-03-28] MEDS: OLANZapine 2.5 MG TABLET PO (08:52)
[2023-03-28] MEDS: Insulin Glargine,Hum.rec.anlog 100 UNIT/ML 10 ML VIAL 15 UNIT SUBCUT (08:53)
[2023-03-28] MEDS: Insulin Lispro 100 UNIT/ML 3 ML VIAL SUBCUT (08:53)
[2023-03-28 11:26] LABS: Glucose, Whole Blood 69 mg/dL (60-115)
[2023-03-28] MEDS: Lactulose 20 GM/30 ML SOLUTION 10 GM PO (11:51)
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
[2023-03-28 16:25] LABS: Glucose, Whole Blood 146 mg/dL (60-115)
[2023-03-28 20:09] LABS: Glucose, Whole Blood 116 mg/dL (60-115)
[2023-03-28] MEDS: amLODIPine Besylate 5 MG TABLET PO (20:48)
[2023-03-28] MEDS: traZODone HCL 100 MG TABLET 200 MG PO (20:48)
[2023-03-28] MEDS: OLANZapine 10 MG TABLET PO (20:48)
[2023-03-28] MEDS: Melatonin 3 MG TABLET 6 MG PO (20:48)
[2023-03-29] VITALS (7 sets, daily range): BP systolic 86–143; BP diastolic 55–68; PULSE 92–107; RESP 18; TEMP 36.2–36.6; O2SAT 97–98
[2023-03-29] MEDS: LORazepam 1 MG TABLET PO (00:42)
[2023-03-29] MEDS: OLANZapine ODT 10 MG TAB.RAPDIS 5 MG TRANSLINGU (00:42)
[2023-03-29] MEDS: traZODone HCL 50 MG TABLET PO (00:42)
[2023-03-29] MEDS: Omeprazole 20 MG CAPSULE.DR PO (06:35)
[2023-03-29 06:43] LABS: Glucose, Whole Blood 108 mg/dL (60-115)
[2023-03-29] MEDS: Memantine HCl 5 MG TABLET PO ×2 (08:26→20:56)
[2023-03-29] MEDS: Gabapentin 300 MG CAPSULE PO ×3 (08:26→20:56)
[2023-03-29] MEDS: traZODone HCL 50 MG TABLET 150 MG PO ×2 (08:27→16:40)
[2023-03-29] MEDS: OLANZapine 2.5 MG TABLET PO (08:28)
[2023-03-29] MEDS: Lactulose 20 GM/30 ML SOLUTION 10 GM PO (08:29)
[2023-03-29] MEDS: HaloperidoL 5 MG TABLET PO ×3 (08:29→20:56)
[2023-03-29] MEDS: Atorvastatin Calcium 20 MG TABLET PO (08:29)
[2023-03-29] MEDS: Sennosides/Docusate Sodium TABLET 1 TAB PO ×2 (08:29→20:56)
[2023-03-29] MEDS: Clopidogrel Bisulfate 75 MG TABLET PO (08:29)
[2023-03-29] MEDS: Insulin Glargine,Hum.rec.anlog 100 UNIT/ML 10 ML VIAL 15 UNIT SUBCUT (08:39)
[2023-03-29 11:20] LABS: Glucose, Whole Blood 119 mg/dL (60-115)
--- NOTE | 2023-03-29 12:41 | PC.NURSE ---
Pt has poor safety awareness. On close observation. Lisinopril held at am d/t BP 107/61. Pt refused to lay down or stand up for orthostatic BP monitoring. Pt had only yogurt for breakfast, refused everything else. Drank cup of water with meds. At 12:00 BP 99/58, P 94 in laying position and 86/59, P 99 in sitting position. Pt refused to stand up for orthostatic BP monitoring. Dr Desmond Seymour notified. Will encourage fluids and food.
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
[2023-03-29 16:13] LABS: Glucose, Whole Blood 120 mg/dL (60-115)
--- NOTE | 2023-03-29 17:11 | PC.NURSE ---
Orthostatic BP at 16:00 lying position 119/57, P 107; sitting 106/57, P 99; standing 95/55, P 103. Dr Seymour notified.
[2023-03-29 20:22] LABS: Glucose, Whole Blood 99 mg/dL (60-115)
[2023-03-29] MEDS: traZODone HCL 100 MG TABLET 200 MG PO (20:56)
[2023-03-29] MEDS: Melatonin 3 MG TABLET 6 MG PO (20:56)
[2023-03-29] MEDS: OLANZapine 10 MG TABLET PO (20:56)
[2023-03-30] MEDS: LORazepam 1 MG TABLET PO (02:19)
[2023-03-30] MEDS: OLANZapine ODT 10 MG TAB.RAPDIS 5 MG TRANSLINGU (02:19)
[2023-03-30 06:08] LABS: Glucose, Whole Blood 94 mg/dL (60-115)
[2023-03-30 08:00] VITALS: BP 140/64; PULSE 77; RESP 18; TEMP 36.4; O2SAT 99
--- NOTE | 2023-03-30 09:37 | HO.PSYCHPN ---
Subjective Subjective Date of Service: 03/30/23 Reason For Visit: Major Depressive D/o, w/ psychotic features Subjective Notes: Conditional Voluntary Healthcare Proxy: Yes Medical Problems Affecting Mental Status: No Interim History: Discussed with Nursing. Overall less placing herself on the floor. Sleep was broken last night, sleeping today. Blood pressure has also been low- holding BP meds. Will stop orthostatics, not complying and 3 days of information, no symptoms Medication Compliance: Yes Side effects from medications: No Attending Groups: Intermittent Review of Systems Acute medical concerns: No Review of Systems Review of Systems unremarkable Yes Unobtainable due to mental status Mental Status Exam Mental Status Exam Narrative: In room. Hospital clothing. Sleeping and not engaging on wakening. Patient Appearance: Appropriate Patient Orientation: Person Level of Consciousness: Awake Patient Behavior: Guarded and Passive Mood Description: Withdrawn Affect Description: Labile Patient Cognition Impaired: Yes Ability to Follow Directions: Good Speech Pattern: Clear Memory Description: Remote Impaired, Immediate Impaired and Narrow Gauge Engineer Impaired Diagnostics Vital Signs (24Hr): Vital Signs - 24 hr 03/29/23 12:00 03/29/23 12:00 03/29/23 16:00 Temperature Pulse Rate 94 99 107 H Respiratory Rate Blood Pressure 99/58 L 86/59 L 119/57 L Pulse Oximetry Oxygen Delivery Method 03/29/23 16:00 03/29/23 16:00 03/29/23 18:00 Temperature 97.9 F Pulse Rate 99 103 H 103 H Respiratory Rate 18 Blood Pressure 106/57 L 95/55 L 143/68 H Pulse Oximetry 97 Oxygen Delivery Method Room Air 03/29/23 20:00 03/29/23 20:36 03/29/23 20:37 Temperature Pulse Rate 101 H 103 H 107 H Respiratory Rate Blood Pressure 127/62 143/68 H 110/56 L Pulse Oximetry Oxygen Delivery Method 03/30/23 08:00 Temperature Pulse Rate 77 Respiratory Rate Blood Pressure 140/64 H Pulse Oximetry Oxygen Delivery Method Labs 01/22/23 08:03 02/26/23 17:41 Labs: Laboratory Results - last 48 hr 03/28/23 03/28/23 03/28/23 11:23 16:19 19:49 POC Glucose 69 146 H 116 H 03/29/23 03/29/23 03/29/23 06:35 11:11 16:07 POC Glucose 108 119 H 120 H 03/29/23 03/30/23 20:18 06:02 POC Glucose 99 94 Imaging Radiology Impressions: ITS Impressions KUB X-Ray 03/26/23 09:55 IMPRESSION: There is a moderately large stool burden, suggesting possible constipation. No obstruction or ileus is seen. No free intraperitoneal air noted. Head CT 03/28/23 09:05 IMPRESSION: 1. No acute intracranial process seen. 2. 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 3. Mild cerebral volume loss with chronic small vessel ischemic changes in both cerebral hemispheres. Medications Medications Current Medications Acetaminophen (Acetaminophen 325 Mg Tablet) 650 mg PO Q6H PRN PRN Reason: Headache/Pain Mild Scale (1-3) Last Admin: 03/28/23 01:54 Dose: 650 mg Al Hydroxide/Mg Hydroxide (Magnesium Hydrox/Alum Hydrox 30 Ml Oral.Susp) 30 ml PO Q6H PRN PRN Reason: Heartburn/Nausea Last Admin: 03/07/23 06:37 Dose: 30 ml Amlodipine Besylate (Amlodipine Besylate 5 Mg Tablet) 5 mg PO BEDTIME [facility]; Protocol Last Admin: 03/28/23 20:48 Dose: 5 mg Atorvastatin Calcium (Atorvastatin Calcium 20 Mg Tablet) 20 mg PO DAILY [facility] Last Admin: 03/29/23 08:29 Dose: 20 mg Clopidogrel Bisulfate (Clopidogrel Bisulfate 75 Mg Tablet) 75 mg PO DAILY [facility] Last Admin: 03/29/23 08:29 Dose: 75 mg Dextrose (Dextrose 50 % 25 Gm/50 Ml Syringe) 25 gm IVPUSH Q15M PRN; Protocol PRN Reason: per Hypoglycemia Standing Ord. Gabapentin (Gabapentin 300 Mg Capsule) 300 mg PO TID [facility] Last Admin: 03/29/23 20:56 Dose: 300 mg Glucose (Glucose Gel 15 Gm Gel..Gram.) 15 gm PO Q15M PRN; Protocol PRN Reason: per Hypoglycemia Standing Ord. Haloperidol (Haloperidol 5 Mg Tablet) 5 mg PO TID [facility] Last Admin: 03/29/23 20:56 Dose: 5 mg Insulin Glargine (Insulin Glargine,Hum.Rec.Anlog 100 Unit/Ml 10 Ml Vial) 15 unit SUBCUT DAILY [facility] Last Admin: 03/29/23 08:39 Dose: 15 unit Insulin Human Lispro (Insulin Lispro 100 Unit/Ml 3 Ml Vial) 0 unit SUBCUT QIDACHS [facility]; Protocol Last Admin: 03/30/23 08:37 Dose: Not Given Lactulose (Lactulose 20 Gm/30 Ml Solution) 10 gm PO DAILY [facility] Last Admin: 03/29/23 08:29 Dose: 10 gm Lisinopril (Lisinopril 10 Mg Tablet) 30 mg PO DAILY [facility] Last Admin: 03/29/23 09:18 Dose: Not Given Lorazepam (Lorazepam 1 Mg Tablet) 1 mg PO Q4H PRN PRN Reason: anxiety/restlessness Last Admin: 03/30/23 02:19 Dose: 1 mg Magnesium Hydroxide (Milk Of Magnesia 30 Ml Oral.Susp) 30 ml PO DAILY PRN PRN Reason: Constipation Last Admin: 03/23/23 09:26 Dose: 30 ml Melatonin (Melatonin 3 Mg Tablet) 6 mg PO BEDTIME [facility] Last Admin: 03/29/23 20:56 Dose: 6 mg Memantine (Memantine Hcl 5 Mg Tablet) 5 mg PO BID [facility] Last Admin: 03/29/23 20:56 Dose: 5 mg Olanzapine (Olanzapine 2.5 Mg Tablet) 2.5 mg PO DAILY [facility] Last Admin: 03/29/23 08:28 Dose: 2.5 mg Olanzapine (Olanzapine Odt 10 Mg Tab.Rapdis) 5 mg TRANSLINGU BID PRN PRN Reason: Psychosis Last Admin: 03/30/23 02:19 Dose: 5 mg Olanzapine (Olanzapine 10 Mg Tablet) 10 mg PO BEDTIME [facility] Last Admin: 03/29/23 20:56 Dose: 10 mg Omeprazole (Omeprazole 20 Mg Capsule.Dr) 20 mg PO DAILY@0700 [facility] Last Admin: 03/29/23 06:35 Dose: 20 mg Senna/Docusate Sodium (Sennosides/Docusate Sodium Tablet) 1 tab PO BID [facility] Last Admin: 03/29/23 20:56 Dose: 1 tab Trazodone HCl (Trazodone Hcl 50 Mg Tablet) 50 mg PO BEDTIME MRX1 PRN PRN Reason: Insomnia Last Admin: 03/29/23 00:42 Dose: 50 mg Trazodone HCl (Trazodone Hcl 100 Mg Tablet) 200 mg PO BEDTIME [facility] Last Admin: 03/29/23 20:56 Dose: 200 mg Trazodone HCl (Trazodone Hcl 50 Mg Tablet) 150 mg PO BID@0900,1500 [facility] Last Admin: 03/29/23 16:40 Dose: 150 mg Allergies Allergies Allergy/AdvReac Type Severity Reaction Status Date / Time aspirin Allergy Unknown Verified 01/15/23 18:02 egg Allergy Unknown Verified 01/15/23 18:02 Fish Containing Products Allergy Unknown Verified 01/15/23 18:02 ibuprofen Allergy Unknown Verified 01/15/23 18:02 Influenza Virus Vaccines Allergy Unknown Verified 01/15/23 18:02 iodine Allergy Unknown Verified 01/15/23 18:02 latex Allergy Unknown Verified 01/15/23 18:02 Penicillins Allergy Unknown Verified 01/15/23 18:02 Tetanus Vaccines and Toxoid Allergy Unknown Verified 01/15/23 18:02 tomato Allergy Unknown Verified 01/15/23 18:02 Assessment & Plan Assessment & Plan (1) Major neurocognitive disorder: Status: Acute Code(s): F03.90 - Unspecified dementia, unspecified severity, without behavioral disturbance, psychotic disturbance, mood disturbance, and anxiety Plan Pt is a Hungarian-speaking 72-year-old female with a PMH significant for?dementia unspecified, hx of CVA, HLD, HTN, insulin-dependent diabetes type 2, and MDD with psychotic features who is admitted to [facility] for aggressive behavior and hearing voices. Patient lives with her son who states she is becoming increasingly unmanageable at home: Has been tearing up pictures, breaking glass, hitting him in the face, and been non compliant with her medications by spitting them out. Medical consult for admission H&P 03/15: Continue current treatment plan Mood disorder Plan as per Psychiatry HLD/ hx of CVA Continue statin, Plavix HTN Acceptable BP control on current therapies Continue home meds Insulin-dependent type 2 diabetes SSI, Lantus, diabetic diet Abnormal CTA findings CTA at [facility] on 01/17/2023 phone possible colonic mucosal lesion at the splenic flexure versus artifact of under distention Suggestion is for direct visualization with colonoscopy unless one has been done recently Follow-up outpatient with PCP Plan 1. Gather collateral information. 2. Continue with Risperdal as prescribed. On January 19 we increased Risperdal to 1 mg p.o. t.i.d. 3. Reassessment results 4. Trazodone is increased up to 100 mg p.o. q.h.s. in January 19. No improvement of poor sleep. We are going to add a low dose of Ambien at night. The patient finally slept with a combination of trazodone and Ambien. No evidence of delirium or over-sedation. 5. Lower Zoloft of 25 mg daily, probably 50 mg it is over stimulating the patient. 6. Increase gabapentin up to 200 mg p.o. t.i.d. to target anxiety and mood lability on January 23. January 28 we increased gabapentin up to 300 mg p.o. t.i.d. 7. Increase trazodone up to 150 mg p.o. q.h.s. on January 24 to target insomnia 8. Risperdal had been increased January 27 up to 1 mg p.o. b.i.d. and 2 mg p.o. q.h.s. since the patient still agitated at times and psychotic. January 29, we realized that Risperdal has not been working. So we decided to change to Zyprexa 2.5 mg p.o. q.a.m. and 5 mg p.o. q.h.s. 9. Family meeting discussed long-term care placement. 10. Ativan increased to 1 mg p.o. q.8 hours to keep 0.5 as p.r.n. February 14 we decided to discontinue Ativan since the patient was not responding to that anymore 11. February 10, we are increasing Zyprexa to 10 mg p.o. q.h.s. . 12. Start Haldol 2 mg p.o. t.i.d. on February 11. So far, no evidence of EPS or over-sedation. We are going to increase Haldol from 6 mg a day to 9 mg a day on February 13. Since the patient remains grossly disorganized we decided to increase the Haldol up to 5 mg p.o. t.i.d. on February 14.\ 13. Continue melatonin 6 mg p.o. q.h.s. since it has been effective. 14. Continue with trazodone up to 150 p.o. b.i.d. and 200 mg p.o. q.h.s. to target irritability and lower Remeron to 7.5 eventually we will taper it off. 15. Discontinue Remeron tonight March 06. 16. On March 21 we are increasing gabapentin up to 800 mg p.o. t.i.d. 17. Waiting for placement. 03/29/23: No changes 03/30/23: Will stop orthostatics, not complying and 3 days of information, no symptoms Reason for continued inpatient stay Substantial Risk for: inability to function Time Spent With Patient Time: Total time managing care of this patient today ____ minutes.
--- NOTE | 2023-03-30 10:48 | PC.NURSE ---
VS: 140/64-77-18, T 97.5, O2sat 99% on RA. Pt refused to get up for orthostatic BP monitoring. AM medications held d/t patient asleep. Breathing even and unlabored. Dr Seymour here to visit and aware of situation. N.O. for Covid testing. Sample collected, awaiting results.
[2023-03-30 10:54] LABS: COVID-19 Test Negative (Negative); IDNOW Serial# 08D9AD1C
--- NOTE | 2023-03-30 11:02 | PC.NURSE ---
Covid testing negative.
[2023-03-30 11:36] LABS: Glucose, Whole Blood 94 mg/dL (60-115)
[2023-03-30] MEDS: Acetaminophen 325 MG TABLET 650 MG PO ×2 (11:47→21:18)
[2023-03-30] MEDS: Gabapentin 300 MG CAPSULE PO ×2 (15:54→20:43)
[2023-03-30] MEDS: HaloperidoL 5 MG TABLET PO ×2 (15:54→20:43)
[2023-03-30] MEDS: traZODone HCL 50 MG TABLET 150 MG PO (15:54)
[2023-03-30 16:19] LABS: Glucose, Whole Blood 122 mg/dL (60-115)
[2023-03-30] MEDS: Magnesium Hydrox/Alum Hydrox 30 ML ORAL.SUSP PO (17:43)
[2023-03-30 18:00] VITALS: BP 132/64; PULSE 72; RESP 17; TEMP 36.8; O2SAT 95
[2023-03-30] MEDS: Sennosides/Docusate Sodium TABLET 1 TAB PO (20:44)
[2023-03-30] MEDS: Melatonin 3 MG TABLET 6 MG PO (20:44)
[2023-03-30] MEDS: OLANZapine 10 MG TABLET PO (20:44)
[2023-03-30] MEDS: traZODone HCL 100 MG TABLET 200 MG PO (20:45)
[2023-03-30] MEDS: Memantine HCl 5 MG TABLET PO (21:18)
[2023-03-30 22:03] LABS: Glucose, Whole Blood 140 mg/dL (60-115)
[2023-03-31] MEDS: Omeprazole 20 MG CAPSULE.DR PO (06:38)
[2023-03-31] MEDS: Acetaminophen 325 MG TABLET 650 MG PO ×2 (06:46→20:50)
[2023-03-31 06:57] LABS: Glucose, Whole Blood 115 mg/dL (60-115)
[2023-03-31 09:00] VITALS: BP 134/70; PULSE 70; RESP 18; TEMP 36.8; O2SAT 96
[2023-03-31] MEDS: Lactulose 20 GM/30 ML SOLUTION 10 GM PO (09:46)
[2023-03-31] MEDS: OLANZapine 2.5 MG TABLET PO (09:46)
[2023-03-31] MEDS: Clopidogrel Bisulfate 75 MG TABLET PO (09:46)
[2023-03-31] MEDS: traZODone HCL 50 MG TABLET 150 MG PO ×2 (09:46→14:29)
[2023-03-31] MEDS: Memantine HCl 5 MG TABLET PO ×2 (09:46→20:50)
[2023-03-31] MEDS: Atorvastatin Calcium 20 MG TABLET PO (09:46)
[2023-03-31] MEDS: Gabapentin 300 MG CAPSULE PO ×3 (09:46→20:50)
[2023-03-31] MEDS: HaloperidoL 5 MG TABLET PO ×3 (09:47→20:50)
[2023-03-31] MEDS: Insulin Glargine,Hum.rec.anlog 100 UNIT/ML 10 ML VIAL 15 UNIT SUBCUT (09:47)
[2023-03-31] MEDS: Sennosides/Docusate Sodium TABLET 1 TAB PO ×2 (09:47→20:51)
--- NOTE | 2023-03-31 10:13 | P.PNPSI_ITS ---
Subjective Subjective Date of Service: 03/31/23 Reason For Visit: Major Depressive D/o, w/ psychotic features Subjective Notes: Conditional Voluntary Interim History: The nursing staff reported the patient sleeps most of the morning, she awoke for lunch. She is was tested for COVID and was negative. She remains flat, no changes in her mental status chronically mentally ill with cognitive impairment. On interview the patient denies new symptoms, waiting for placement. Pleasant easily redirectable. Mental Status Exam Mental Status Exam Patient Appearance: Appropriate Patient Orientation: Person Level of Consciousness: Disoriented Patient Behavior: Guarded Mood Description: Constricted Affect Description: Calm Patient Cognition Impaired: Yes Ability to Follow Directions: Fair Speech Pattern: Clear Hallucinations: None Delusions: Not Present Thought Process: Distracted and Slowed Thinking Thought Content: positive for [place] and positive for Poverty of Content Judgement: Poor Diagnostics Vital Signs (24Hr): Vital Signs - 24 hr 03/30/23 18:00 03/31/23 09:00 Temperature 98.3 F 98.2 F Pulse Rate 72 70 Respiratory Rate 17 18 Blood Pressure 132/64 134/70 Pulse Oximetry 95 96 Oxygen Delivery Method Room Air Room Air Labs 01/22/23 08:03 02/26/23 17:41 Labs: Laboratory Results - last 48 hr 03/29/23 03/29/23 03/29/23 11:11 16:07 20:18 POC Glucose 119 H 120 H 99 COVID-19 ([facility]) COVID-19 Clin Com 03/30/23 03/30/23 03/30/23 06:02 10:30 11:32 POC Glucose 94 94 COVID-19 ([facility]AE) Negative COVID-19 Clin Com See Note 03/30/23 03/30/23 03/31/23 16:05 20:42 06:43 POC Glucose 122 H 140 H 115 COVID-19 ([facility]) COVID-19 Clin Com Imaging Radiology Impressions: ITS Impressions KUB X-Ray 03/26/23 09:55 IMPRESSION: There is a moderately large stool burden, suggesting possible constipation. No obstruction or ileus is seen. No free intraperitoneal air noted. Head CT 03/28/23 09:05 IMPRESSION: 1. No acute intracranial process seen. 2. 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 3. Mild cerebral volume loss with chronic small vessel ischemic changes in both cerebral hemispheres. Medications Medications Current Medications Acetaminophen (Acetaminophen 325 Mg Tablet) 650 mg PO Q6H PRN PRN Reason: Headache/Pain Mild Scale (1-3) Last Admin: 03/31/23 06:46 Dose: 650 mg Al Hydroxide/Mg Hydroxide (Magnesium Hydrox/Alum Hydrox 30 Ml Oral.Susp) 30 ml PO Q6H PRN PRN Reason: Heartburn/Nausea Last Admin: 03/30/23 17:43 Dose: 30 ml Amlodipine Besylate (Amlodipine Besylate 5 Mg Tablet) 5 mg PO BEDTIME [facility]; Protocol Last Admin: 03/28/23 20:48 Dose: 5 mg Atorvastatin Calcium (Atorvastatin Calcium 20 Mg Tablet) 20 mg PO DAILY [facility] Last Admin: 03/31/23 09:46 Dose: 20 mg Clopidogrel Bisulfate (Clopidogrel Bisulfate 75 Mg Tablet) 75 mg PO DAILY [facility] Last Admin: 03/31/23 09:46 Dose: 75 mg Dextrose (Dextrose 50 % 25 Gm/50 Ml Syringe) 25 gm IVPUSH Q15M PRN; Protocol PRN Reason: per Hypoglycemia Standing Ord. Gabapentin (Gabapentin 300 Mg Capsule) 300 mg PO TID [facility] Last Admin: 03/31/23 09:46 Dose: 300 mg Glucose (Glucose Gel 15 Gm Gel..Gram.) 15 gm PO Q15M PRN; Protocol PRN Reason: per Hypoglycemia Standing Ord. Haloperidol (Haloperidol 5 Mg Tablet) 5 mg PO TID [facility] Last Admin: 03/31/23 09:47 Dose: 5 mg Insulin Glargine (Insulin Glargine,Hum.Rec.Anlog 100 Unit/Ml 10 Ml Vial) 15 unit SUBCUT DAILY [facility] Last Admin: 03/31/23 09:47 Dose: 15 unit Insulin Human Lispro (Insulin Lispro 100 Unit/Ml 3 Ml Vial) 0 unit SUBCUT QIDACHS [facility]; Protocol Last Admin: 03/31/23 09:44 Dose: Not Given Lactulose (Lactulose 20 Gm/30 Ml Solution) 10 gm PO DAILY [facility] Last Admin: 03/31/23 09:46 Dose: 10 gm Lisinopril (Lisinopril 10 Mg Tablet) 30 mg PO DAILY [facility] Last Admin: 03/29/23 09:18 Dose: Not Given Lorazepam (Lorazepam 1 Mg Tablet) 1 mg PO Q4H PRN PRN Reason: anxiety/restlessness Last Admin: 03/30/23 02:19 Dose: 1 mg Magnesium Hydroxide (Milk Of Magnesia 30 Ml Oral.Susp) 30 ml PO DAILY PRN PRN Reason: Constipation Last Admin: 03/23/23 09:26 Dose: 30 ml Melatonin (Melatonin 3 Mg Tablet) 6 mg PO BEDTIME [facility] Last Admin: 03/30/23 20:44 Dose: 6 mg Memantine (Memantine Hcl 5 Mg Tablet) 5 mg PO BID [facility] Last Admin: 03/31/23 09:46 Dose: 5 mg Olanzapine (Olanzapine 2.5 Mg Tablet) 2.5 mg PO DAILY [facility] Last Admin: 03/31/23 09:46 Dose: 2.5 mg Olanzapine (Olanzapine Odt 10 Mg Tab.Rapdis) 5 mg TRANSLINGU BID PRN PRN Reason: Psychosis Last Admin: 03/30/23 02:19 Dose: 5 mg Olanzapine (Olanzapine 10 Mg Tablet) 10 mg PO BEDTIME [facility] Last Admin: 03/30/23 20:44 Dose: 10 mg Omeprazole (Omeprazole 20 Mg Capsule.Dr) 20 mg PO DAILY@0700 [facility] Last Admin: 03/31/23 06:38 Dose: 20 mg Senna/Docusate Sodium (Sennosides/Docusate Sodium Tablet) 1 tab PO BID [facility] Last Admin: 03/31/23 09:47 Dose: 1 tab Trazodone HCl (Trazodone Hcl 50 Mg Tablet) 50 mg PO BEDTIME MRX1 PRN PRN Reason: Insomnia Last Admin: 03/29/23 00:42 Dose: 50 mg Trazodone HCl (Trazodone Hcl 100 Mg Tablet) 200 mg PO BEDTIME [facility] Last Admin: 03/30/23 20:45 Dose: 200 mg Trazodone HCl (Trazodone Hcl 50 Mg Tablet) 150 mg PO BID@0900,1500 [facility] Last Admin: 03/31/23 09:46 Dose: 150 mg Allergies Allergies Allergy/AdvReac Type Severity Reaction Status Date / Time aspirin Allergy Unknown Verified 01/15/23 18:02 egg Allergy Unknown Verified 01/15/23 18:02 Fish Containing Products Allergy Unknown Verified 01/15/23 18:02 ibuprofen Allergy Unknown Verified 01/15/23 18:02 Influenza Virus Vaccines Allergy Unknown Verified 01/15/23 18:02 iodine Allergy Unknown Verified 01/15/23 18:02 latex Allergy Unknown Verified 01/15/23 18:02 Penicillins Allergy Unknown Verified 01/15/23 18:02 Tetanus Vaccines and Toxoid Allergy Unknown Verified 01/15/23 18:02 tomato Allergy Unknown Verified 01/15/23 18:02 Assessment & Plan Assessment & Plan (1) Major neurocognitive disorder: Status: Acute Code(s): F03.90 - Unspecified dementia, unspecified severity, without behavioral disturbance, psychotic disturbance, mood disturbance, and anxiety Plan Pt is a Bulgarian-speaking 72-year-old female with a PMH significant for?dementia unspecified, hx of CVA, HLD, HTN, insulin-dependent diabetes type 2, and MDD with psychotic features who is admitted to [facility] for aggressive behavior and hearing voices. Patient lives with her son who states she is becoming increasingly unmanageable at home: Has been tearing up pictures, breaking glass, hitting him in the face, and been non compliant with her medications by spitting them out. Medical consult for admission H&P 03/15: Continue current treatment plan Mood disorder Plan as per Psychiatry HLD/ hx of CVA Continue statin, Plavix HTN Acceptable BP control on current therapies Continue home meds Insulin-dependent type 2 diabetes SSI, Lantus, diabetic diet Abnormal CTA findings CTA at [facility] on 01/17/2023 phone possible colonic mucosal lesion at the splenic flexure versus artifact of under distention Suggestion is for direct visualization with colonoscopy unless one has been done recently Follow-up outpatient with PCP Plan 1. Gather collateral information. 2. Continue with Risperdal as prescribed. On January 19 we increased Risperdal to 1 mg p.o. t.i.d. 3. Reassessment results 4. Trazodone is increased up to 100 mg p.o. q.h.s. in January 19. No improvement of poor sleep. We are going to add a low dose of Ambien at night. The patient finally slept with a combination of trazodone and Ambien. No evidence of delirium or over-sedation. 5. Lower Zoloft of 25 mg daily, probably 50 mg it is over stimulating the patient. 6. Increase gabapentin up to 200 mg p.o. t.i.d. to target anxiety and mood lability on January 23. January 28 we increased gabapentin up to 300 mg p.o. t.i.d. 7. Increase trazodone up to 150 mg p.o. q.h.s. on January 24 to target insomnia 8. Risperdal had been increased January 27 up to 1 mg p.o. b.i.d. and 2 mg p.o. q.h.s. since the patient still agitated at times and psychotic. January 29, we realized that Risperdal has not been working. So we decided to change to Zyprexa 2.5 mg p.o. q.a.m. and 5 mg p.o. q.h.s. 9. Family meeting discussed long-term care placement. 10. Ativan increased to 1 mg p.o. q.8 hours to keep 0.5 as p.r.n. February 14 we decided to discontinue Ativan since the patient was not responding to that anymore 11. February 10, we are increasing Zyprexa to 10 mg p.o. q.h.s. . 12. Start Haldol 2 mg p.o. t.i.d. on February 11. So far, no evidence of EPS or over-sedation. We are going to increase Haldol from 6 mg a day to 9 mg a day on February 13. Since the patient remains grossly disorganized we decided to increase the Haldol up to 5 mg p.o. t.i.d. on February 14.\ 13. Continue melatonin 6 mg p.o. q.h.s. since it has been effective. 14. Continue with trazodone up to 150 p.o. b.i.d. and 200 mg p.o. q.h.s. to target irritability and lower Remeron to 7.5 eventually we will taper it off. 15. Discontinue Remeron tonight March 06. 16. On March 21 we are increasing gabapentin up to 800 mg p.o. t.i.d. 17. Waiting for placement. Reason for continued inpatient stay Substantial Risk for: inability to function, rapid decompensation and med/psych decompensation Time Spent With Patient Time: Total time managing care of this patient today __20__ minutes.
[2023-03-31 11:24] LABS: Glucose, Whole Blood 153 mg/dL (60-115)
[2023-03-31] MEDS: Insulin Lispro 100 UNIT/ML 3 ML VIAL SUBCUT (11:36)
[2023-03-31 16:18] LABS: Glucose, Whole Blood 116 mg/dL (60-115)
[2023-03-31 20:09] VITALS: BP 126/78; PULSE 102; RESP 16; TEMP 36.3; O2SAT 98
[2023-03-31 20:27] LABS: Glucose, Whole Blood 147 mg/dL (60-115)
[2023-03-31] MEDS: traZODone HCL 100 MG TABLET 200 MG PO (20:48)
[2023-03-31] MEDS: Melatonin 3 MG TABLET 6 MG PO (20:50)
[2023-03-31] MEDS: OLANZapine 10 MG TABLET PO (20:51)
[2023-04-01] MEDS: Acetaminophen 325 MG TABLET 650 MG PO ×2 (04:01→20:17)
[2023-04-01] MEDS: OLANZapine ODT 10 MG TAB.RAPDIS 5 MG TRANSLINGU (04:04)
[2023-04-01] MEDS: LORazepam 1 MG TABLET PO (04:04)
[2023-04-01 07:00] LABS: Glucose, Whole Blood 121 mg/dL (60-115)
[2023-04-01 08:45] VITALS: BP 142/81; PULSE 90; RESP 18; TEMP 36.8; O2SAT 98
[2023-04-01] MEDS: Lactulose 20 GM/30 ML SOLUTION 10 GM PO (08:58)
[2023-04-01] MEDS: Atorvastatin Calcium 20 MG TABLET PO (08:59)
[2023-04-01] MEDS: Memantine HCl 5 MG TABLET PO ×2 (08:59→20:16)
[2023-04-01] MEDS: Omeprazole 20 MG CAPSULE.DR PO (08:59)
[2023-04-01] MEDS: HaloperidoL 5 MG TABLET PO ×2 (08:59→20:16)
[2023-04-01] MEDS: Gabapentin 300 MG CAPSULE PO ×2 (08:59→20:16)
[2023-04-01] MEDS: Clopidogrel Bisulfate 75 MG TABLET PO (08:59)
[2023-04-01] MEDS: Sennosides/Docusate Sodium TABLET 1 TAB PO ×2 (08:59→20:16)
[2023-04-01] MEDS: OLANZapine 2.5 MG TABLET PO (08:59)
[2023-04-01] MEDS: traZODone HCL 50 MG TABLET 150 MG PO ×2 (08:59→15:20)
[2023-04-01] MEDS: Insulin Glargine,Hum.rec.anlog 100 UNIT/ML 10 ML VIAL 15 UNIT SUBCUT (09:00)
[2023-04-01 11:26] LABS: Glucose, Whole Blood 123 mg/dL (60-115)
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
[2023-04-01 16:16] LABS: Glucose, Whole Blood 78 mg/dL (60-115)
[2023-04-01 20:05] VITALS: BP 126/62; PULSE 88; RESP 18; TEMP 36.1; O2SAT 95
[2023-04-01 20:05] LABS: Glucose, Whole Blood 153 mg/dL (60-115)
[2023-04-01] MEDS: OLANZapine 10 MG TABLET PO (20:16)
[2023-04-01] MEDS: Melatonin 3 MG TABLET 6 MG PO (20:16)
[2023-04-01] MEDS: traZODone HCL 100 MG TABLET 200 MG PO (20:16)
[2023-04-02] MEDS: traZODone HCL 50 MG TABLET PO (02:46)
[2023-04-02] MEDS: OLANZapine ODT 10 MG TAB.RAPDIS 5 MG TRANSLINGU (02:46)
[2023-04-02 06:00] VITALS: BP 120/69; PULSE 99; RESP 16; TEMP 36.6; O2SAT 94
[2023-04-02 06:49] LABS: Glucose, Whole Blood 98 mg/dL (60-115)
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
[2023-04-02 11:16] LABS: Glucose, Whole Blood 110 mg/dL (60-115)
[2023-04-02] MEDS: Atorvastatin Calcium 20 MG TABLET PO (11:48)
[2023-04-02] MEDS: OLANZapine 2.5 MG TABLET PO (11:48)
[2023-04-02] MEDS: Memantine HCl 5 MG TABLET PO ×2 (11:48→20:09)
[2023-04-02] MEDS: HaloperidoL 5 MG TABLET PO ×2 (11:48→20:08)
[2023-04-02] MEDS: Gabapentin 300 MG CAPSULE PO ×2 (11:48→20:08)
[2023-04-02] MEDS: Clopidogrel Bisulfate 75 MG TABLET PO (11:48)
[2023-04-02] MEDS: Omeprazole 20 MG CAPSULE.DR PO (11:48)
[2023-04-02] MEDS: traZODone HCL 50 MG TABLET 150 MG PO (11:49)
[2023-04-02] MEDS: Lactulose 20 GM/30 ML SOLUTION 10 GM PO (11:49)
[2023-04-02] MEDS: Sennosides/Docusate Sodium TABLET 1 TAB PO ×2 (16:53→20:08)
[2023-04-02 19:35] VITALS: BP 163/72; PULSE 87; RESP 16; TEMP 36.4; O2SAT 95
[2023-04-02 19:57] LABS: Glucose, Whole Blood 169 mg/dL (60-115)
[2023-04-02] MEDS: Acetaminophen 325 MG TABLET 650 MG PO (20:08)
[2023-04-02] MEDS: Melatonin 3 MG TABLET 6 MG PO (20:08)
[2023-04-02] MEDS: OLANZapine 10 MG TABLET PO (20:08)
[2023-04-02] MEDS: traZODone HCL 100 MG TABLET 200 MG PO (20:09)
[2023-04-02] MEDS: Insulin Lispro 100 UNIT/ML 3 ML VIAL SUBCUT (20:12)
[2023-04-03] MEDS: Omeprazole 20 MG CAPSULE.DR PO (05:27)
[2023-04-03 06:00] VITALS: BP 168/70; PULSE 92; RESP 16; TEMP 36.5; O2SAT 93
[2023-04-03 06:33] LABS: Glucose, Whole Blood 126 mg/dL (60-115)
[2023-04-03] MEDS: Insulin Glargine,Hum.rec.anlog 100 UNIT/ML 10 ML VIAL 15 UNIT SUBCUT (09:39)
[2023-04-03] MEDS: traZODone HCL 50 MG TABLET 150 MG PO (11:24)
[2023-04-03] MEDS: Memantine HCl 5 MG TABLET PO ×2 (11:25→20:25)
[2023-04-03] MEDS: Clopidogrel Bisulfate 75 MG TABLET PO (11:25)
[2023-04-03] MEDS: HaloperidoL 5 MG TABLET PO ×2 (11:25→20:25)
[2023-04-03] MEDS: Atorvastatin Calcium 20 MG TABLET PO (11:25)
[2023-04-03] MEDS: Sennosides/Docusate Sodium TABLET 1 TAB PO ×2 (11:25→20:25)
[2023-04-03] MEDS: OLANZapine 2.5 MG TABLET PO (11:25)
[2023-04-03] MEDS: Lactulose 20 GM/30 ML SOLUTION 10 GM PO (11:25)
[2023-04-03] MEDS: Gabapentin 300 MG CAPSULE PO ×2 (11:36→20:25)
[2023-04-03 11:37] LABS: Glucose, Whole Blood 137 mg/dL (60-115)
--- NOTE | 2023-04-03 11:46 | P.PNPSI_ITS ---
Subjective Subjective Date of Service: 04/03/23 Reason For Visit: Major Depressive D/o, w/ psychotic features Subjective Notes: Conditional Voluntary Interim History: The nursing staff reported the patient slept most of the day yesterday in the morning. She has refused his medications in the morning and evening. On interview the patient reports that she is having a headache and I instructed her to us for her Tylenol p.r.n.. We are ordering blood work for tomorrow. Mental Status Exam Mental Status Exam Patient Appearance: Appropriate Patient Orientation: Person Level of Consciousness: Awake and Disoriented Patient Behavior: Guarded and Passive Mood Description: Withdrawn Affect Description: Constricted Patient Cognition Impaired: Yes Ability to Follow Directions: Fair Speech Pattern: Impoverished Hallucinations: None Delusions: Paranoid Ideation and Ideas of Reference Thought Process: Distracted and Slowed Thinking Thought Content: positive for [place] and positive for Poverty of Content Judgement: Poor Diagnostics Vital Signs (24Hr): Vital Signs - 24 hr 04/02/23 19:35 04/03/23 06:00 Temperature 97.6 F 97.7 F Pulse Rate 87 92 Respiratory Rate 16 16 Blood Pressure 163/72 H 168/70 H Pulse Oximetry 95 93 Oxygen Delivery Method Room Air Room Air Labs 01/22/23 08:03 02/26/23 17:41 Labs: Laboratory Results - last 48 hr 04/01/23 04/01/23 04/02/23 16:12 19:50 06:44 POC Glucose 78 153 H 98 04/02/23 04/02/23 04/03/23 11:12 19:50 05:54 POC Glucose 110 169 H 126 H 04/03/23 11:33 POC Glucose 137 H Imaging Radiology Impressions: ITS Impressions KUB X-Ray 03/26/23 09:55 IMPRESSION: There is a moderately large stool burden, suggesting possible constipation. No obstruction or ileus is seen. No free intraperitoneal air noted. Head CT 03/28/23 09:05 IMPRESSION: 1. No acute intracranial process seen. 2. 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 3. Mild cerebral volume loss with chronic small vessel ischemic changes in both cerebral hemispheres. Medications Medications Current Medications Acetaminophen (Acetaminophen 325 Mg Tablet) 650 mg PO Q6H PRN PRN Reason: Headache/Pain Mild Scale (1-3) Last Admin: 04/02/23 20:08 Dose: 650 mg Al Hydroxide/Mg Hydroxide (Magnesium Hydrox/Alum Hydrox 30 Ml Oral.Susp) 30 ml PO Q6H PRN PRN Reason: Heartburn/Nausea Last Admin: 03/30/23 17:43 Dose: 30 ml Amlodipine Besylate (Amlodipine Besylate 5 Mg Tablet) 5 mg PO BEDTIME [facility]; Protocol Last Admin: 03/28/23 20:48 Dose: 5 mg Atorvastatin Calcium (Atorvastatin Calcium 20 Mg Tablet) 20 mg PO DAILY [facility] Last Admin: 04/03/23 11:25 Dose: 20 mg Clopidogrel Bisulfate (Clopidogrel Bisulfate 75 Mg Tablet) 75 mg PO DAILY [facility] Last Admin: 04/03/23 11:25 Dose: 75 mg Dextrose (Dextrose 50 % 25 Gm/50 Ml Syringe) 25 gm IVPUSH Q15M PRN; Protocol PRN Reason: per Hypoglycemia Standing Ord. Gabapentin (Gabapentin 300 Mg Capsule) 300 mg PO TID [facility] Last Admin: 04/03/23 11:36 Dose: 300 mg Glucose (Glucose Gel 15 Gm Gel..Gram.) 15 gm PO Q15M PRN; Protocol PRN Reason: per Hypoglycemia Standing Ord. Haloperidol (Haloperidol 5 Mg Tablet) 5 mg PO TID [facility] Last Admin: 04/03/23 11:25 Dose: 5 mg Insulin Glargine (Insulin Glargine,Hum.Rec.Anlog 100 Unit/Ml 10 Ml Vial) 15 unit SUBCUT DAILY [facility] Last Admin: 04/03/23 09:39 Dose: 15 unit Insulin Human Lispro (Insulin Lispro 100 Unit/Ml 3 Ml Vial) 0 unit SUBCUT QIDACHS [facility]; Protocol Last Admin: 04/03/23 11:34 Dose: Not Given Lactulose (Lactulose 20 Gm/30 Ml Solution) 10 gm PO DAILY [facility] Last Admin: 04/03/23 11:25 Dose: 10 gm Lisinopril (Lisinopril 10 Mg Tablet) 30 mg PO DAILY [facility] Last Admin: 03/29/23 09:18 Dose: Not Given Lorazepam (Lorazepam 1 Mg Tablet) 1 mg PO Q4H PRN PRN Reason: anxiety/restlessness Last Admin: 04/01/23 04:04 Dose: 1 mg Magnesium Hydroxide (Milk Of Magnesia 30 Ml Oral.Susp) 30 ml PO DAILY PRN PRN Reason: Constipation Last Admin: 03/23/23 09:26 Dose: 30 ml Melatonin (Melatonin 3 Mg Tablet) 6 mg PO BEDTIME [facility] Last Admin: 04/02/23 20:08 Dose: 6 mg Memantine (Memantine Hcl 5 Mg Tablet) 5 mg PO BID [facility] Last Admin: 04/03/23 11:25 Dose: 5 mg Olanzapine (Olanzapine 2.5 Mg Tablet) 2.5 mg PO DAILY [facility] Last Admin: 04/03/23 11:25 Dose: 2.5 mg Olanzapine (Olanzapine Odt 10 Mg Tab.Rapdis) 5 mg TRANSLINGU BID PRN PRN Reason: Psychosis Last Admin: 04/02/23 02:46 Dose: 5 mg Olanzapine (Olanzapine 10 Mg Tablet) 10 mg PO BEDTIME [facility] Last Admin: 04/02/23 20:08 Dose: 10 mg Omeprazole (Omeprazole 20 Mg Capsule.Dr) 20 mg PO DAILY@0700 [facility] Last Admin: 04/03/23 05:27 Dose: 20 mg Senna/Docusate Sodium (Sennosides/Docusate Sodium Tablet) 1 tab PO BID [facility] Last Admin: 04/03/23 11:25 Dose: 1 tab Trazodone HCl (Trazodone Hcl 50 Mg Tablet) 50 mg PO BEDTIME MRX1 PRN PRN Reason: Insomnia Last Admin: 04/02/23 02:46 Dose: 50 mg Trazodone HCl (Trazodone Hcl 100 Mg Tablet) 200 mg PO BEDTIME [facility] Last Admin: 04/02/23 20:09 Dose: 200 mg Trazodone HCl (Trazodone Hcl 50 Mg Tablet) 150 mg PO BID@0900,1500 [facility] Last Admin: 04/03/23 11:24 Dose: 150 mg Allergies Allergies Allergy/AdvReac Type Severity Reaction Status Date / Time aspirin Allergy Unknown Verified 01/15/23 18:02 egg Allergy Unknown Verified 01/15/23 18:02 Fish Containing Products Allergy Unknown Verified 01/15/23 18:02 ibuprofen Allergy Unknown Verified 01/15/23 18:02 Influenza Virus Vaccines Allergy Unknown Verified 01/15/23 18:02 iodine Allergy Unknown Verified 01/15/23 18:02 latex Allergy Unknown Verified 01/15/23 18:02 Penicillins Allergy Unknown Verified 01/15/23 18:02 Tetanus Vaccines and Toxoid Allergy Unknown Verified 01/15/23 18:02 tomato Allergy Unknown Verified 01/15/23 18:02 Assessment & Plan Assessment & Plan (1) Major neurocognitive disorder: Status: Acute Code(s): F03.90 - Unspecified dementia, unspecified severity, without behavioral disturbance, psychotic disturbance, mood disturbance, and anxiety Plan Pt is a Citizen [place]-speaking 72-year-old female with a PMH significant for?dementia unspecified, hx of CVA, HLD, HTN, insulin-dependent diabetes type 2, and MDD with psychotic features who is admitted to [facility] for aggressive behavior and hearing voices. Patient lives with her son who states she is becoming increasingly unmanageable at home: Has been tearing up pictures, breaking glass, hitting him in the face, and been non compliant with her medications by spitting them out. Medical consult for admission H&P 03/15: Continue current treatment plan Mood disorder Plan as per Psychiatry HLD/ hx of CVA Continue statin, Plavix HTN Acceptable BP control on current therapies Continue home meds Insulin-dependent type 2 diabetes SSI, Lantus, diabetic diet Abnormal CTA findings CTA at [facility] on 01/17/2023 phone possible colonic mucosal lesion at the splenic flexure versus artifact of under distention Suggestion is for direct visualization with colonoscopy unless one has been done recently Follow-up outpatient with PCP Plan 1. Gather collateral information. 2. Continue with Risperdal as prescribed. On January 19 we increased Risperdal to 1 mg p.o. t.i.d. 3. Reassessment results 4. Trazodone is increased up to 100 mg p.o. q.h.s. in January 19. No improvement of poor sleep. We are going to add a low dose of Ambien at night. The patient finally slept with a combination of trazodone and Ambien. No evidence of delirium or over-sedation. 5. Lower Zoloft of 25 mg daily, probably 50 mg it is over stimulating the patient. 6. Increase gabapentin up to 200 mg p.o. t.i.d. to target anxiety and mood lability on January 23. January 28 we increased gabapentin up to 300 mg p.o. t.i.d. 7. Increase trazodone up to 150 mg p.o. q.h.s. on January 24 to target insomnia 8. Risperdal had been increased January 27 up to 1 mg p.o. b.i.d. and 2 mg p.o. q.h.s. since the patient still agitated at times and psychotic. January 29, we realized that Risperdal has not been working. So we decided to change to Zyprexa 2.5 mg p.o. q.a.m. and 5 mg p.o. q.h.s. 9. Family meeting discussed long-term care placement. 10. Ativan increased to 1 mg p.o. q.8 hours to keep 0.5 as p.r.n. February 14 we decided to discontinue Ativan since the patient was not responding to that anymore 11. February 10, we are increasing Zyprexa to 10 mg p.o. q.h.s. . 12. Start Haldol 2 mg p.o. t.i.d. on February 11. So far, no evidence of EPS or over-sedation. We are going to increase Haldol from 6 mg a day to 9 mg a day on February 13. Since the patient remains grossly disorganized we decided to increase the Haldol up to 5 mg p.o. t.i.d. on February 14.\ 13. Continue melatonin 6 mg p.o. q.h.s. since it has been effective. 14. Continue with trazodone up to 150 p.o. b.i.d. and 200 mg p.o. q.h.s. to target irritability and lower Remeron to 7.5 eventually we will taper it off. 15. Discontinue Remeron tonight March 06. 16. On March 21 we are increasing gabapentin up to 800 mg p.o. t.i.d. 17. Waiting for placement. Reason for continued inpatient stay Substantial Risk for: inability to function, rapid decompensation and med/psych decompensation Time Spent With Patient Time: Total time managing care of this patient today __20__ minutes.
[2023-04-03 16:23] LABS: Glucose, Whole Blood 219 mg/dL (60-115)
[2023-04-03 19:35] VITALS: BP 150/67; PULSE 77; RESP 16; TEMP 36.2; O2SAT 97
[2023-04-03 19:59] LABS: Glucose, Whole Blood 118 mg/dL (60-115)
[2023-04-03] MEDS: traZODone HCL 100 MG TABLET 200 MG PO (20:25)
[2023-04-03] MEDS: Acetaminophen 325 MG TABLET 650 MG PO (20:25)
[2023-04-03] MEDS: Melatonin 3 MG TABLET 6 MG PO (20:25)
[2023-04-03] MEDS: OLANZapine 10 MG TABLET PO (20:26)
[2023-04-04 06:00] VITALS: BP 124/66; PULSE 102; RESP 16; TEMP 36.3; O2SAT 98
[2023-04-04 06:54] LABS: Glucose, Whole Blood 141 mg/dL (60-115)
[2023-04-04] MEDS: Omeprazole 20 MG CAPSULE.DR PO (06:54)
--- NOTE | 2023-04-04 07:52 | HO.PSYCHPN ---
Subjective Subjective Date of Service: 04/04/23 Reason For Visit: Major Depressive D/o, w/ psychotic features Subjective Notes: Conditional Voluntary Interim History: The nursing staff reported that the patient was sleepy most of the day yesterday. She had poor appetite and she was out only for meals. She needed P.r.n. trazodone at night for sleep. On interview, the patient was pleasantly confused, easily redirectable. Waiting for placement. Bloodwork ordered for today AM. Mental Status Exam Mental Status Exam Patient Appearance: Appropriate Patient Orientation: Person and Situation Level of Consciousness: Awake and Appropriate Patient Behavior: Guarded and Passive Mood Description: Withdrawn Affect Description: Constricted Patient Cognition Impaired: Yes Ability to Follow Directions: Fair Speech Pattern: Clear Hallucinations: None Delusions: Not Present Thought Process: Illogical, Evasive and Slowed Thinking Thought Content: positive for [place] and positive for Poverty of Content Judgement: Poor Diagnostics Vital Signs (24Hr): Vital Signs - 24 hr 04/03/23 19:35 Temperature 97.2 F Pulse Rate 77 Respiratory Rate 16 Blood Pressure 150/67 H Pulse Oximetry 97 Oxygen Delivery Method Room Air Labs 01/22/23 08:03 02/26/23 17:41 Labs: Laboratory Results - last 48 hr 04/02/23 04/02/23 04/03/23 11:12 19:50 05:54 POC Glucose 110 169 H 126 H 04/03/23 04/03/23 04/03/23 11:33 16:10 19:54 POC Glucose 137 H 219 H 118 H 04/04/23 06:37 POC Glucose 141 H Imaging Radiology Impressions: ITS Impressions [facility] X-Ray 03/26/23 09:55 IMPRESSION: There is a moderately large stool burden, suggesting possible constipation. No obstruction or ileus is seen. No free intraperitoneal air noted. Head CT 03/28/23 09:05 IMPRESSION: 1. No acute intracranial process seen. 2. 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 3. Mild cerebral volume loss with chronic small vessel ischemic changes in both cerebral hemispheres. Medications Medications Current Medications Acetaminophen (Acetaminophen 325 Mg Tablet) 650 mg PO Q6H PRN PRN Reason: Headache/Pain Mild Scale (1-3) Last Admin: 04/03/23 20:25 Dose: 650 mg Al Hydroxide/Mg Hydroxide (Magnesium Hydrox/Alum Hydrox 30 Ml Oral.Susp) 30 ml PO Q6H PRN PRN Reason: Heartburn/Nausea Last Admin: 03/30/23 17:43 Dose: 30 ml Amlodipine Besylate (Amlodipine Besylate 5 Mg Tablet) 5 mg PO BEDTIME [facility]; Protocol Last Admin: 03/28/23 20:48 Dose: 5 mg Atorvastatin Calcium (Atorvastatin Calcium 20 Mg Tablet) 20 mg PO DAILY [facility] Last Admin: 04/03/23 11:25 Dose: 20 mg Clopidogrel Bisulfate (Clopidogrel Bisulfate 75 Mg Tablet) 75 mg PO DAILY [facility] Last Admin: 04/03/23 11:25 Dose: 75 mg Dextrose (Dextrose 50 % 25 Gm/50 Ml Syringe) 25 gm IVPUSH Q15M PRN; Protocol PRN Reason: per Hypoglycemia Standing Ord. Gabapentin (Gabapentin 300 Mg Capsule) 300 mg PO TID [facility] Last Admin: 04/03/23 20:25 Dose: 300 mg Glucose (Glucose Gel 15 Gm Gel..Gram.) 15 gm PO Q15M PRN; Protocol PRN Reason: per Hypoglycemia Standing Ord. Haloperidol (Haloperidol 5 Mg Tablet) 5 mg PO TID [facility] Last Admin: 04/03/23 20:25 Dose: 5 mg Insulin Glargine (Insulin Glargine,Hum.Rec.Anlog 100 Unit/Ml 10 Ml Vial) 15 unit SUBCUT DAILY [facility] Last Admin: 04/03/23 09:39 Dose: 15 unit Insulin Human Lispro (Insulin Lispro 100 Unit/Ml 3 Ml Vial) 0 unit SUBCUT QIDACHS [facility]; Protocol Last Admin: 04/03/23 20:28 Dose: Not Given Lactulose (Lactulose 20 Gm/30 Ml Solution) 10 gm PO DAILY [facility] Last Admin: 04/03/23 11:25 Dose: 10 gm Lisinopril (Lisinopril 10 Mg Tablet) 30 mg PO DAILY [facility] Last Admin: 03/29/23 09:18 Dose: Not Given Lorazepam (Lorazepam 1 Mg Tablet) 1 mg PO Q4H PRN PRN Reason: anxiety/restlessness Last Admin: 04/01/23 04:04 Dose: 1 mg Magnesium Hydroxide (Milk Of Magnesia 30 Ml Oral.Susp) 30 ml PO DAILY PRN PRN Reason: Constipation Last Admin: 03/23/23 09:26 Dose: 30 ml Melatonin (Melatonin 3 Mg Tablet) 6 mg PO BEDTIME [facility] Last Admin: 04/03/23 20:25 Dose: 6 mg Memantine (Memantine Hcl 5 Mg Tablet) 5 mg PO BID [facility] Last Admin: 04/03/23 20:25 Dose: 5 mg Olanzapine (Olanzapine 2.5 Mg Tablet) 2.5 mg PO DAILY [facility] Last Admin: 04/03/23 11:25 Dose: 2.5 mg Olanzapine (Olanzapine Odt 10 Mg Tab.Rapdis) 5 mg TRANSLINGU BID PRN PRN Reason: Psychosis Last Admin: 04/02/23 02:46 Dose: 5 mg Olanzapine (Olanzapine 10 Mg Tablet) 10 mg PO BEDTIME [facility] Last Admin: 04/03/23 20:26 Dose: 10 mg Omeprazole (Omeprazole 20 Mg Capsule.Dr) 20 mg PO DAILY@0700 [facility] Last Admin: 04/04/23 06:54 Dose: 20 mg Senna/Docusate Sodium (Sennosides/Docusate Sodium Tablet) 1 tab PO BID [facility] Last Admin: 04/03/23 20:25 Dose: 1 tab Trazodone HCl (Trazodone Hcl 50 Mg Tablet) 50 mg PO BEDTIME MRX1 PRN PRN Reason: Insomnia Last Admin: 04/02/23 02:46 Dose: 50 mg Trazodone HCl (Trazodone Hcl 100 Mg Tablet) 200 mg PO BEDTIME [facility] Last Admin: 04/03/23 20:25 Dose: 200 mg Trazodone HCl (Trazodone Hcl 50 Mg Tablet) 150 mg PO BID@0900,1500 [facility] Last Admin: 04/03/23 17:17 Dose: Not Given Allergies Allergies Allergy/AdvReac Type Severity Reaction Status Date / Time aspirin Allergy Unknown Verified 01/15/23 18:02 egg Allergy Unknown Verified 01/15/23 18:02 Fish Containing Products Allergy Unknown Verified 01/15/23 18:02 ibuprofen Allergy Unknown Verified 01/15/23 18:02 Influenza Virus Vaccines Allergy Unknown Verified 01/15/23 18:02 iodine Allergy Unknown Verified 01/15/23 18:02 latex Allergy Unknown Verified 01/15/23 18:02 Penicillins Allergy Unknown Verified 01/15/23 18:02 Tetanus Vaccines and Toxoid Allergy Unknown Verified 01/15/23 18:02 tomato Allergy Unknown Verified 01/15/23 18:02 Assessment & Plan Assessment & Plan (1) Major neurocognitive disorder: Status: Acute Code(s): F03.90 - Unspecified dementia, unspecified severity, without behavioral disturbance, psychotic disturbance, mood disturbance, and anxiety Plan Pt is a [place]-speaking 72-year-old female with a PMH significant for?dementia unspecified, hx of CVA, HLD, HTN, insulin-dependent diabetes type 2, and MDD with psychotic features who is admitted to [facility] for aggressive behavior and hearing voices. Patient lives with her son who states she is becoming increasingly unmanageable at home: Has been tearing up pictures, breaking glass, hitting him in the face, and been non compliant with her medications by spitting them out. Medical consult for admission H&P 03/15: Continue current treatment plan Mood disorder Plan as per Psychiatry HLD/ hx of CVA Continue statin, Plavix HTN Acceptable BP control on current therapies Continue home meds Insulin-dependent type 2 diabetes SSI, Lantus, diabetic diet Abnormal CTA findings CTA at [facility] on 01/17/2023 phone possible colonic mucosal lesion at the splenic flexure versus artifact of under distention Suggestion is for direct visualization with colonoscopy unless one has been done recently Follow-up outpatient with PCP Plan 1. Gather collateral information. 2. Continue with Risperdal as prescribed. On January 19 we increased Risperdal to 1 mg p.o. t.i.d. 3. Reassessment results 4. Trazodone is increased up to 100 mg p.o. q.h.s. in January 19. No improvement of poor sleep. We are going to add a low dose of Ambien at night. The patient finally slept with a combination of trazodone and Ambien. No evidence of delirium or over-sedation. 5. Lower Zoloft of 25 mg daily, probably 50 mg it is over stimulating the patient. 6. Increase gabapentin up to 200 mg p.o. t.i.d. to target anxiety and mood lability on January 23. January 28 we increased gabapentin up to 300 mg p.o. t.i.d. 7. Increase trazodone up to 150 mg p.o. q.h.s. on January 24 to target insomnia 8. Risperdal had been increased January 27 up to 1 mg p.o. b.i.d. and 2 mg p.o. q.h.s. since the patient still agitated at times and psychotic. January 29, we realized that Risperdal has not been working. So we decided to change to Zyprexa 2.5 mg p.o. q.a.m. and 5 mg p.o. q.h.s. 9. Family meeting discussed long-term care placement. 10. Ativan increased to 1 mg p.o. q.8 hours to keep 0.5 as p.r.n. February 14 we decided to discontinue Ativan since the patient was not responding to that anymore 11. February 10, we are increasing Zyprexa to 10 mg p.o. q.h.s. . 12. Start Haldol 2 mg p.o. t.i.d. on February 11. So far, no evidence of EPS or over-sedation. We are going to increase Haldol from 6 mg a day to 9 mg a day on February 13. Since the patient remains grossly disorganized we decided to increase the Haldol up to 5 mg p.o. t.i.d. on February 14.\ 13. Continue melatonin 6 mg p.o. q.h.s. since it has been effective. 14. Continue with trazodone up to 150 p.o. b.i.d. and 200 mg p.o. q.h.s. to target irritability and lower Remeron to 7.5 eventually we will taper it off. 15. Discontinue Remeron tonight March 06. 16. On March 21 we are increasing gabapentin up to 800 mg p.o. t.i.d. 17. Waiting for placement. Reason for continued inpatient stay Substantial Risk for: inability to function, rapid decompensation and med/psych decompensation Time Spent With Patient Time: Total time managing care of this patient today __20__ minutes.
[2023-04-04] MEDS: Lactulose 20 GM/30 ML SOLUTION 10 GM PO (08:04)
[2023-04-04] MEDS: Insulin Glargine,Hum.rec.anlog 100 UNIT/ML 10 ML VIAL 15 UNIT SUBCUT (08:05)
[2023-04-04] MEDS: Clopidogrel Bisulfate 75 MG TABLET PO (08:05)
[2023-04-04] MEDS: traZODone HCL 50 MG TABLET 150 MG PO ×2 (08:05→15:46)
[2023-04-04] MEDS: Sennosides/Docusate Sodium TABLET 1 TAB PO ×2 (08:06→21:58)
[2023-04-04] MEDS: Memantine HCl 5 MG TABLET PO ×2 (08:06→21:58)
[2023-04-04] MEDS: HaloperidoL 5 MG TABLET PO ×3 (08:06→21:59)
[2023-04-04] MEDS: Gabapentin 300 MG CAPSULE PO ×3 (08:06→21:59)
[2023-04-04] MEDS: Atorvastatin Calcium 20 MG TABLET PO (10:13)
[2023-04-04] MEDS: OLANZapine 2.5 MG TABLET PO (10:14)
[2023-04-04 11:17] LABS: MANUAL DIFF FLAG NO
[2023-04-04 11:19] LABS: Basophils Percent Auto 0.7 % (0-2); Eosinophils Absolute Auto 0.3 X10*3/uL (0.0-0.4); Eosinophils Percent Auto 4.6 % (0-4); Hematocrit 41.2 % (37.0-47.0); Imm Gran Abs Auto 0.01 X10*3/uL (0.00-0.03); Imm Gran Pct Auto 0.2 % (0.0-0.4); Lymphocytes Absolute Auto 1.1 X10*3/uL (1.2-4.9); Lymphocytes Percent Auto 19.3 % (20-40); Mean Corpuscular HGB Conc 31.6 g/dl (31.0-35.0); Mean Corpuscular Hemoglobin 27.1 pg (27.0-33.0); Mean Corpuscular Volume 85.8 fL (80.0-98.0); Mean Platelet Volume 9.6 fL (9.4-12.3); Monocytes Absolute Auto 0.4 X10*3/uL (0.1-1.2); Monocytes Percent Auto 6.4 % (2-11); Neutrophils Absolute Auto 3.9 x10*3/uL (2.0-8.3); Neutrophils Percent Auto 68.8 % (45-73); Platelet Count 265 X10*3/uL (160-400); White Blood Count 5.7 X10*3/uL (4.8-10.8)
[2023-04-04 11:28] LABS: Estimated Average Glucose 157 mg/dL; Hemoglobin A1c % 7.1 % (<6.0)
[2023-04-04 11:41] LABS: Alanine Aminotransferase 22 U/L (0-31); Albumin Level 4.4 g/dL (3.5-5.0); Alkaline Phosphatase 94 U/L (39-117); Anion Gap 14 (12-20); Aspartate Amino Transferase 18 U/L (5-31); Bilirubin Direct 0.1 mg/dL (0.0-0.5); Bilirubin Total 0.3 mg/dL (0.0-1.0); Blood Urea Nitrogen 10 mg/dL (9-16); Calcium 9.5 mg/dL (8.4-10.2); Carbon Dioxide 29 mmol/L (22-29); Chloride 104 mmol/L (96-108); Estimated Glomerular Filt Rate > 60; Glucose Random 182 mg/dL (60-115); Potassium 3.7 mmol/L (3.3-5.1); Sodium 143 mmol/L (135-145)
[2023-04-04] MEDS: Acetaminophen 325 MG TABLET 650 MG PO (11:56)
[2023-04-04 11:57] LABS: Thyroid Stimulating Hormone 0.86 uIU/mL (0.32-4.0)
[2023-04-04 16:16] LABS: Glucose, Whole Blood 152 mg/dL (60-115)
[2023-04-04] MEDS: Insulin Lispro 100 UNIT/ML 3 ML VIAL SUBCUT (16:24)
[2023-04-04 20:09] VITALS: BP 105/55; PULSE 64; RESP 16; TEMP 36; O2SAT 96
[2023-04-04 21:13] LABS: Glucose, Whole Blood 93 mg/dL (60-115)
[2023-04-04] MEDS: OLANZapine 10 MG TABLET PO (21:59)
[2023-04-04] MEDS: Melatonin 3 MG TABLET 6 MG PO (21:59)
[2023-04-04] MEDS: traZODone HCL 100 MG TABLET 200 MG PO (21:59)
[2023-04-05] MEDS: Acetaminophen 325 MG TABLET 650 MG PO ×2 (02:41→21:04)
[2023-04-05] MEDS: traZODone HCL 50 MG TABLET PO (02:41)
[2023-04-05] MEDS: LORazepam 1 MG TABLET PO ×2 (02:41→21:04)
[2023-04-05 06:54] LABS: Glucose, Whole Blood 154 mg/dL (60-115)
[2023-04-05 08:15] VITALS: BP 136/62; PULSE 77; RESP 18; TEMP 36.6; O2SAT 97
[2023-04-05] MEDS: OLANZapine 2.5 MG TABLET PO (08:36)
[2023-04-05] MEDS: Clopidogrel Bisulfate 75 MG TABLET PO (08:36)
[2023-04-05] MEDS: Gabapentin 300 MG CAPSULE PO ×3 (08:36→20:18)
[2023-04-05] MEDS: Sennosides/Docusate Sodium TABLET 1 TAB PO ×2 (08:36→20:18)
[2023-04-05] MEDS: traZODone HCL 50 MG TABLET 150 MG PO ×2 (08:36→14:45)
[2023-04-05] MEDS: Atorvastatin Calcium 20 MG TABLET PO (08:37)
[2023-04-05] MEDS: Insulin Lispro 100 UNIT/ML 3 ML VIAL SUBCUT (08:37)
[2023-04-05] MEDS: HaloperidoL 5 MG TABLET PO ×3 (08:37→20:18)
[2023-04-05] MEDS: Lactulose 20 GM/30 ML SOLUTION 10 GM PO (08:37)
[2023-04-05] MEDS: Memantine HCl 5 MG TABLET PO ×2 (08:37→20:18)
[2023-04-05] MEDS: Insulin Glargine,Hum.rec.anlog 100 UNIT/ML 10 ML VIAL 15 UNIT SUBCUT (08:38)
[2023-04-05] MEDS: Omeprazole 20 MG CAPSULE.DR PO (08:43)
--- NOTE | 2023-04-05 09:42 | P.PNPSI_ITS ---
Subjective Subjective Date of Service: 04/05/23 Reason For Visit: Major Depressive D/o, w/ psychotic features Subjective Notes: Conditional Voluntary Interim History: The nursing staff reported the patient have complained of headaches and she received Tylenol in the evening. 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 Ativan with for improvement. On interview the patient is pleasantly confused. Waiting for placement. Mental Status Exam Mental Status Exam Patient Appearance: Well Grooomed and Appropriate Patient Orientation: Person and Situation Level of Consciousness: Awake and Appropriate Patient Behavior: Guarded Mood Description: Withdrawn Affect Description: Constricted Patient Cognition Impaired: Yes Ability to Follow Directions: Fair Speech Pattern: Clear Hallucinations: None Delusions: Not Present Thought Process: Distracted and Evasive Thought Content: positive for [place] and positive for Poverty of Content Judgement: Poor Diagnostics Vital Signs (24Hr): Vital Signs - 24 hr 04/04/23 20:09 04/05/23 08:15 Temperature 96.8 F 97.8 F Pulse Rate 64 77 Respiratory Rate 16 18 Blood Pressure 105/55 L 136/62 Pulse Oximetry 96 97 Oxygen Delivery Method Room Air Room Air Labs 04/04/23 11:13 04/04/23 11:13 Labs: Laboratory Results - last 48 hr 04/03/23 04/03/23 04/03/23 11:33 16:10 19:54 WBC RBC Hgb Hct MCV MCH MCHC RDW Plt Count MPV Immature Gran % (Auto) Neut % (Auto) Lymph % (Auto) [place] % (Auto) Eos % (Auto) Baso % (Auto) Lymph # (Auto) [place] # (Auto) Eos # (Auto) Baso # (Auto) Abs Immat Gran (auto) Absolute Neuts (auto) Absolute Nucleated RBC Nucleated RBC % (auto) Sodium Potassium Chloride Carbon Dioxide Anion Gap BUN Creatinine Estim Creat Clear Calc Estimated GFR POC Glucose 137 H 219 H 118 H Random Glucose Estimat Average Glucose Hemoglobin A1c % Calcium Total Bilirubin Direct Bilirubin AST ALT Alkaline Phosphatase Total Protein Albumin TSH 04/04/23 04/04/23 04/04/23 06:37 11:13 16:09 WBC 5.7 RBC 4.80 D Hgb 13.0 D Hct 41.2 D MCV 85.8 MCH 27.1 MCHC 31.6 RDW 13.0 Plt Count 265 D MPV 9.6 Immature Gran % (Auto) 0.2 Neut % (Auto) 68.8 Lymph % (Auto) 19.3 L [place] % (Auto) 6.4 Eos % (Auto) 4.6 H Baso % (Auto) 0.7 Lymph # (Auto) 1.1 L [place] # (Auto) 0.4 Eos # (Auto) 0.3 Baso # (Auto) 0.0 Abs Immat Gran (auto) 0.01 Absolute Neuts (auto) 3.9 Absolute Nucleated RBC 0.000 Nucleated RBC % (auto) 0.0 Sodium 143 Potassium 3.7 Chloride 104 Carbon Dioxide 29 Anion Gap 14 BUN 10 Creatinine 0.80 Estim Creat Clear Calc TNP Estimated GFR > 60 POC Glucose 141 H 152 H Random Glucose 182 H Estimat Average Glucose 157 Hemoglobin A1c % 7.1 H Calcium 9.5 Total Bilirubin 0.3 Direct Bilirubin 0.1 AST 18 ALT 22 Alkaline Phosphatase 94 Total Protein 8.0 Albumin 4.4 TSH 0.86 04/04/23 04/05/23 21:08 06:03 WBC RBC Hgb Hct MCV MCH MCHC RDW Plt Count MPV Immature Gran % (Auto) Neut % (Auto) Lymph % (Auto) [place] % (Auto) Eos % (Auto) Baso % (Auto) Lymph # (Auto) [place] # (Auto) Eos # (Auto) Baso # (Auto) Abs Immat Gran (auto) Absolute Neuts (auto) Absolute Nucleated RBC Nucleated RBC % (auto) Sodium Potassium Chloride Carbon Dioxide Anion Gap BUN Creatinine Estim Creat Clear Calc Estimated GFR POC Glucose 93 154 H Random Glucose Estimat Average Glucose Hemoglobin A1c % Calcium Total Bilirubin Direct Bilirubin AST ALT Alkaline Phosphatase Total Protein Albumin TSH Imaging Radiology Impressions: ITS Impressions KUB X-Ray 03/26/23 09:55 IMPRESSION: There is a moderately large stool burden, suggesting possible constipation. No obstruction or ileus is seen. No free intraperitoneal air noted. Head CT 03/28/23 09:05 IMPRESSION: 1. No acute intracranial process seen. 2. 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 3. Mild cerebral volume loss with chronic small vessel ischemic changes in both cerebral hemispheres. Medications Medications Current Medications Acetaminophen (Acetaminophen 325 Mg Tablet) 650 mg PO Q6H PRN PRN Reason: Headache/Pain Mild Scale (1-3) Last Admin: 04/05/23 02:41 Dose: 650 mg Al Hydroxide/Mg Hydroxide (Magnesium Hydrox/Alum Hydrox 30 Ml Oral.Susp) 30 ml PO Q6H PRN PRN Reason: Heartburn/Nausea Last Admin: 03/30/23 17:43 Dose: 30 ml Amlodipine Besylate (Amlodipine Besylate 5 Mg Tablet) 5 mg PO BEDTIME [facility]; Protocol Last Admin: 03/28/23 20:48 Dose: 5 mg Atorvastatin Calcium (Atorvastatin Calcium 20 Mg Tablet) 20 mg PO DAILY [facility] Last Admin: 04/05/23 08:37 Dose: 20 mg Clopidogrel Bisulfate (Clopidogrel Bisulfate 75 Mg Tablet) 75 mg PO DAILY [facility] Last Admin: 04/05/23 08:36 Dose: 75 mg Dextrose (Dextrose 50 % 25 Gm/50 Ml Syringe) 25 gm IVPUSH Q15M PRN; Protocol PRN Reason: per Hypoglycemia Standing Ord. Gabapentin (Gabapentin 300 Mg Capsule) 300 mg PO TID [facility] Last Admin: 04/05/23 08:36 Dose: 300 mg Glucose (Glucose Gel 15 Gm Gel..Gram.) 15 gm PO Q15M PRN; Protocol PRN Reason: per Hypoglycemia Standing Ord. Haloperidol (Haloperidol 5 Mg Tablet) 5 mg PO TID [facility] Last Admin: 04/05/23 08:37 Dose: 5 mg Insulin Glargine (Insulin Glargine,Hum.Rec.Anlog 100 Unit/Ml 10 Ml Vial) 15 unit SUBCUT DAILY [facility] Last Admin: 04/05/23 08:38 Dose: 15 unit Insulin Human Lispro (Insulin Lispro 100 Unit/Ml 3 Ml Vial) 0 unit SUBCUT QIDACHS [facility]; Protocol Last Admin: 04/05/23 08:37 Dose: 2 unit Lactulose (Lactulose 20 Gm/30 Ml Solution) 10 gm PO DAILY [facility] Last Admin: 04/05/23 08:37 Dose: 10 gm Lisinopril (Lisinopril 10 Mg Tablet) 30 mg PO DAILY [facility] Last Admin: 03/29/23 09:18 Dose: Not Given Lorazepam (Lorazepam 1 Mg Tablet) 1 mg PO Q4H PRN PRN Reason: anxiety/restlessness Last Admin: 04/05/23 02:41 Dose: 1 mg Magnesium Hydroxide (Milk Of Magnesia 30 Ml Oral.Susp) 30 ml PO DAILY PRN PRN Reason: Constipation Last Admin: 03/23/23 09:26 Dose: 30 ml Melatonin (Melatonin 3 Mg Tablet) 6 mg PO BEDTIME [facility] Last Admin: 04/04/23 21:59 Dose: 6 mg Memantine (Memantine Hcl 5 Mg Tablet) 5 mg PO BID [facility] Last Admin: 04/05/23 08:37 Dose: 5 mg Olanzapine (Olanzapine 2.5 Mg Tablet) 2.5 mg PO DAILY [facility] Last Admin: 04/05/23 08:36 Dose: 2.5 mg Olanzapine (Olanzapine Odt 10 Mg Tab.Rapdis) 5 mg TRANSLINGU BID PRN PRN Reason: Psychosis Last Admin: 04/02/23 02:46 Dose: 5 mg Olanzapine (Olanzapine 10 Mg Tablet) 10 mg PO BEDTIME [facility] Last Admin: 04/04/23 21:59 Dose: 10 mg Omeprazole (Omeprazole 20 Mg Capsule.Dr) 20 mg PO DAILY@0700 [facility] Last Admin: 04/05/23 08:43 Dose: 20 mg Senna/Docusate Sodium (Sennosides/Docusate Sodium Tablet) 1 tab PO BID [facility] Last Admin: 04/05/23 08:36 Dose: 1 tab Trazodone HCl (Trazodone Hcl 50 Mg Tablet) 50 mg PO BEDTIME MRX1 PRN PRN Reason: Insomnia Last Admin: 04/05/23 02:41 Dose: 50 mg Trazodone HCl (Trazodone Hcl 100 Mg Tablet) 200 mg PO BEDTIME [facility] Last Admin: 04/04/23 21:59 Dose: 200 mg Trazodone HCl (Trazodone Hcl 50 Mg Tablet) 150 mg PO BID@0900,1500 [facility] Last Admin: 04/05/23 08:36 Dose: 150 mg Allergies Allergies Allergy/AdvReac Type Severity Reaction Status Date / Time aspirin Allergy Unknown Verified 01/15/23 18:02 egg Allergy Unknown Verified 01/15/23 18:02 Fish Containing Products Allergy Unknown Verified 01/15/23 18:02 ibuprofen Allergy Unknown Verified 01/15/23 18:02 Influenza Virus Vaccines Allergy Unknown Verified 01/15/23 18:02 iodine Allergy Unknown Verified 01/15/23 18:02 latex Allergy Unknown Verified 01/15/23 18:02 Penicillins Allergy Unknown Verified 01/15/23 18:02 Tetanus Vaccines and Toxoid Allergy Unknown Verified 01/15/23 18:02 tomato Allergy Unknown Verified 01/15/23 18:02 Assessment & Plan Assessment & Plan (1) Major neurocognitive disorder: Status: Acute Code(s): F03.90 - Unspecified dementia, unspecified severity, without behavioral disturbance, psychotic disturbance, mood disturbance, and anxiety Plan Pt is a Peruvian-speaking 72-year-old female with a PMH significant for?dementia unspecified, hx of CVA, HLD, HTN, insulin-dependent diabetes type 2, and MDD with psychotic features who is admitted to [facility] for aggressive behavior and hearing voices. Patient lives with her son who states she is becoming increasingly unmanageable at home: Has been tearing up pictures, breaking glass, hitting him in the face, and been non compliant with her medications by spitting them out. Medical consult for admission H&P 03/15: Continue current treatment plan Mood disorder Plan as per Psychiatry HLD/ hx of CVA Continue statin, Plavix HTN Acceptable BP control on current therapies Continue home meds Insulin-dependent type 2 diabetes SSI, Lantus, diabetic diet Abnormal CTA findings CTA at [facility] on 01/17/2023 phone possible colonic mucosal lesion at the splenic flexure versus artifact of under distention Suggestion is for direct visualization with colonoscopy unless one has been done recently Follow-up outpatient with PCP Plan 1. Gather collateral information. 2. Continue with Risperdal as prescribed. On January 19 we increased Risperdal to 1 mg p.o. t.i.d. 3. Reassessment results 4. Trazodone is increased up to 100 mg p.o. q.h.s. in January 19. No improvement of poor sleep. We are going to add a low dose of Ambien at night. The patient finally slept with a combination of trazodone and Ambien. No evidence of delirium or over-sedation. 5. Lower Zoloft of 25 mg daily, probably 50 mg it is over stimulating the patient. 6. Increase gabapentin up to 200 mg p.o. t.i.d. to target anxiety and mood lability on January 23. January 28 we increased gabapentin up to 300 mg p.o. t.i.d. 7. Increase trazodone up to 150 mg p.o. q.h.s. on January 24 to target insomnia 8. Risperdal had been increased January 27 up to 1 mg p.o. b.i.d. and 2 mg p.o. q.h.s. since the patient still agitated at times and psychotic. January 29, we realized that Risperdal has not been working. So we decided to change to Zyprexa 2.5 mg p.o. q.a.m. and 5 mg p.o. q.h.s. 9. Family meeting discussed long-term care placement. 10. Ativan increased to 1 mg p.o. q.8 hours to keep 0.5 as p.r.n. February 14 we decided to discontinue Ativan since the patient was not responding to that anymore 11. February 10, we are increasing Zyprexa to 10 mg p.o. q.h.s. . 12. Start Haldol 2 mg p.o. t.i.d. on February 11. So far, no evidence of EPS or over-sedation. We are going to increase Haldol from 6 mg a day to 9 mg a day on February 13. Since the patient remains grossly disorganized we decided to increase the Haldol up to 5 mg p.o. t.i.d. on February 14.\ 13. Continue melatonin 6 mg p.o. q.h.s. since it has been effective. 14. Continue with trazodone up to 150 p.o. b.i.d. and 200 mg p.o. q.h.s. to target irritability and lower Remeron to 7.5 eventually we will taper it off. 15. Discontinue Remeron tonight March 06. 16. On March 21 we are increasing gabapentin up to 800 mg p.o. t.i.d. 17. Waiting for placement. Reason for continued inpatient stay Substantial Risk for: inability to function, rapid decompensation and med/psych decompensation Time Spent With Patient Time: Total time managing care of this patient today _20___ minutes.
[2023-04-05 11:20] LABS: Glucose, Whole Blood 70 mg/dL (60-115)
[2023-04-05 16:17] LABS: Glucose, Whole Blood 144 mg/dL (60-115)
--- NOTE | 2023-04-05 18:19 | PC.NURSE ---
pt with loose stools x2,
[2023-04-05] MEDS: OLANZapine 10 MG TABLET PO (20:18)
[2023-04-05] MEDS: Melatonin 3 MG TABLET 6 MG PO (20:18)
[2023-04-05] MEDS: traZODone HCL 100 MG TABLET 200 MG PO (20:18)
[2023-04-05 20:20] VITALS: BP 164/79; PULSE 93; RESP 16; TEMP 36.1; O2SAT 98
[2023-04-05 20:38] LABS: Glucose, Whole Blood 139 mg/dL (60-115)
[2023-04-06] MEDS: LORazepam 1 MG TABLET PO (03:08)
[2023-04-06] MEDS: Acetaminophen 325 MG TABLET 650 MG PO ×2 (03:08→21:32)
[2023-04-06] MEDS: traZODone HCL 50 MG TABLET PO (03:08)
[2023-04-06 06:15] LABS: Glucose, Whole Blood 117 mg/dL (60-115)
--- NOTE | 2023-04-06 09:39 | HO.PSYCHPN ---
Subjective Subjective Date of Service: 04/06/23 Reason For Visit: Major Depressive D/o, w/ psychotic features Subjective Notes: Conditional Voluntary Interim History: The nursing staff reported the patient complained of headaches yesterday. She had PRNs in the 2nd shift and she slept well last night. On interview the patient was sleeping in the morning after breakfast, she waking [place] and denies new symptoms. We are going to order a new KUB since her last bowel movement was not documented in the last 24 hours. Mental Status Exam Mental Status Exam Patient Appearance: Appropriate Patient Orientation: Person and Situation Level of Consciousness: Awake Patient Behavior: Guarded and Passive Mood Description: Withdrawn Affect Description: Constricted Patient Cognition Impaired: Yes Ability to Follow Directions: Good Speech Pattern: Clear Hallucinations: None Delusions: Not Present Thought Process: Illogical and Distracted Thought Content: positive for [place] and positive for Poverty of Content Judgement: Poor Diagnostics Vital Signs (24Hr): Vital Signs - 24 hr 04/05/23 20:20 Temperature 97.0 F Pulse Rate 93 Respiratory Rate 16 Blood Pressure 164/79 H Pulse Oximetry 98 Oxygen Delivery Method Room Air Labs 04/04/23 11:13 04/04/23 11:13 Labs: Laboratory Results - last 48 hr 04/04/23 04/04/23 04/04/23 11:13 16:09 21:08 WBC 5.7 RBC 4.80 D Hgb 13.0 D Hct 41.2 D MCV 85.8 MCH 27.1 MCHC 31.6 RDW 13.0 Plt Count 265 D MPV 9.6 Immature Gran % (Auto) 0.2 Neut % (Auto) 68.8 Lymph % (Auto) 19.3 L [place] % (Auto) 6.4 Eos % (Auto) 4.6 H Baso % (Auto) 0.7 Lymph # (Auto) 1.1 L [place] # (Auto) 0.4 Eos # (Auto) 0.3 Baso # (Auto) 0.0 Abs Immat Gran (auto) 0.01 Absolute Neuts (auto) 3.9 Absolute Nucleated RBC 0.000 Nucleated RBC % (auto) 0.0 Sodium 143 Potassium 3.7 Chloride 104 Carbon Dioxide 29 Anion Gap 14 BUN 10 Creatinine 0.80 Estim Creat Clear Calc TNP Estimated GFR > 60 POC Glucose 152 H 93 Random Glucose 182 H Estimat Average Glucose 157 Hemoglobin A1c % 7.1 H Calcium 9.5 Total Bilirubin 0.3 Direct Bilirubin 0.1 AST 18 ALT 22 Alkaline Phosphatase 94 Total Protein 8.0 Albumin 4.4 TSH 0.86 04/05/23 04/05/23 04/05/23 06:03 11:16 16:10 WBC RBC Hgb Hct MCV MCH MCHC RDW Plt Count MPV Immature Gran % (Auto) Neut % (Auto) Lymph % (Auto) [place] % (Auto) Eos % (Auto) Baso % (Auto) Lymph # (Auto) [place] # (Auto) Eos # (Auto) Baso # (Auto) Abs Immat Gran (auto) Absolute Neuts (auto) Absolute Nucleated RBC Nucleated RBC % (auto) Sodium Potassium Chloride Carbon Dioxide Anion Gap BUN Creatinine Estim Creat Clear Calc Estimated GFR POC Glucose 154 H 70 144 H Random Glucose Estimat Average Glucose Hemoglobin A1c % Calcium Total Bilirubin Direct Bilirubin AST ALT Alkaline Phosphatase Total Protein Albumin TSH 04/05/23 04/06/23 20:28 06:01 WBC RBC Hgb Hct MCV MCH MCHC RDW Plt Count MPV Immature Gran % (Auto) Neut % (Auto) Lymph % (Auto) [place] % (Auto) Eos % (Auto) Baso % (Auto) Lymph # (Auto) [place] # (Auto) Eos # (Auto) Baso # (Auto) Abs Immat Gran (auto) Absolute Neuts (auto) Absolute Nucleated RBC Nucleated RBC % (auto) Sodium Potassium Chloride Carbon Dioxide Anion Gap BUN Creatinine Estim Creat Clear Calc Estimated GFR POC Glucose 139 H 117 H Random Glucose Estimat Average Glucose Hemoglobin A1c % Calcium Total Bilirubin Direct Bilirubin AST ALT Alkaline Phosphatase Total Protein Albumin TSH Imaging Radiology Impressions: ITS Impressions KUB X-Ray 03/26/23 09:55 IMPRESSION: There is a moderately large stool burden, suggesting possible constipation. No obstruction or ileus is seen. No free intraperitoneal air noted. Head CT 03/28/23 09:05 IMPRESSION: 1. No acute intracranial process seen. 2. 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 3. Mild cerebral volume loss with chronic small vessel ischemic changes in both cerebral hemispheres. Medications Medications Current Medications Acetaminophen (Acetaminophen 325 Mg Tablet) 650 mg PO Q6H PRN PRN Reason: Headache/Pain Mild Scale (1-3) Last Admin: 04/06/23 03:08 Dose: 650 mg Al Hydroxide/Mg Hydroxide (Magnesium Hydrox/Alum Hydrox 30 Ml Oral.Susp) 30 ml PO Q6H PRN PRN Reason: Heartburn/Nausea Last Admin: 03/30/23 17:43 Dose: 30 ml Amlodipine Besylate (Amlodipine Besylate 5 Mg Tablet) 5 mg PO BEDTIME [facility]; Protocol Last Admin: 03/28/23 20:48 Dose: 5 mg Atorvastatin Calcium (Atorvastatin Calcium 20 Mg Tablet) 20 mg PO DAILY [facility] Last Admin: 04/05/23 08:37 Dose: 20 mg Clopidogrel Bisulfate (Clopidogrel Bisulfate 75 Mg Tablet) 75 mg PO DAILY [facility] Last Admin: 04/05/23 08:36 Dose: 75 mg Dextrose (Dextrose 50 % 25 Gm/50 Ml Syringe) 25 gm IVPUSH Q15M PRN; Protocol PRN Reason: per Hypoglycemia Standing Ord. Gabapentin (Gabapentin 300 Mg Capsule) 300 mg PO TID [facility] Last Admin: 04/05/23 20:18 Dose: 300 mg Glucose (Glucose Gel 15 Gm Gel..Gram.) 15 gm PO Q15M PRN; Protocol PRN Reason: per Hypoglycemia Standing Ord. Haloperidol (Haloperidol 5 Mg Tablet) 5 mg PO TID [facility] Last Admin: 04/05/23 20:18 Dose: 5 mg Insulin Glargine (Insulin Glargine,Hum.Rec.Anlog 100 Unit/Ml 10 Ml Vial) 15 unit SUBCUT DAILY [facility] Last Admin: 04/05/23 08:38 Dose: 15 unit Insulin Human Lispro (Insulin Lispro 100 Unit/Ml 3 Ml Vial) 0 unit SUBCUT QIDACHS [facility]; Protocol Last Admin: 04/05/23 21:16 Dose: Not Given Lactulose (Lactulose 20 Gm/30 Ml Solution) 10 gm PO DAILY [facility] Last Admin: 04/05/23 08:37 Dose: 10 gm Lisinopril (Lisinopril 10 Mg Tablet) 30 mg PO DAILY [facility] Last Admin: 03/29/23 09:18 Dose: Not Given Lorazepam (Lorazepam 1 Mg Tablet) 1 mg PO Q4H PRN PRN Reason: anxiety/restlessness Last Admin: 04/06/23 03:08 Dose: 1 mg Magnesium Hydroxide (Milk Of Magnesia 30 Ml Oral.Susp) 30 ml PO DAILY PRN PRN Reason: Constipation Last Admin: 03/23/23 09:26 Dose: 30 ml Melatonin (Melatonin 3 Mg Tablet) 6 mg PO BEDTIME [facility] Last Admin: 12/09/23 20:18 Dose: 6 mg Memantine (Memantine Hcl 5 Mg Tablet) 5 mg PO BID [facility] Last Admin: 04/05/23 20:18 Dose: 5 mg Olanzapine (Olanzapine 2.5 Mg Tablet) 2.5 mg PO DAILY [facility] Last Admin: 04/05/23 08:36 Dose: 2.5 mg Olanzapine (Olanzapine Odt 10 Mg Tab.Rapdis) 5 mg TRANSLINGU BID PRN PRN Reason: Psychosis Last Admin: 04/02/23 02:46 Dose: 5 mg Olanzapine (Olanzapine 10 Mg Tablet) 10 mg PO BEDTIME [facility] Last Admin: 04/05/23 20:18 Dose: 10 mg Omeprazole (Omeprazole 20 Mg Capsule.Dr) 20 mg PO DAILY@0700 [facility] Last Admin: 04/05/23 08:43 Dose: 20 mg Senna/Docusate Sodium (Sennosides/Docusate Sodium Tablet) 1 tab PO BID [facility] Last Admin: 04/05/23 20:18 Dose: 1 tab Trazodone HCl (Trazodone Hcl 50 Mg Tablet) 50 mg PO BEDTIME MRX1 PRN PRN Reason: Insomnia Last Admin: 04/06/23 03:08 Dose: 50 mg Trazodone HCl (Trazodone Hcl 100 Mg Tablet) 200 mg PO BEDTIME [facility] Last Admin: 04/05/23 20:18 Dose: 200 mg Trazodone HCl (Trazodone Hcl 50 Mg Tablet) 150 mg PO BID@0900,1500 [facility] Last Admin: 04/05/23 14:45 Dose: 150 mg Allergies Allergies Allergy/AdvReac Type Severity Reaction Status Date / Time aspirin Allergy Unknown Verified 01/15/23 18:02 egg Allergy Unknown Verified 01/15/23 18:02 Fish Containing Products Allergy Unknown Verified 01/15/23 18:02 ibuprofen Allergy Unknown Verified 01/15/23 18:02 Influenza Virus Vaccines Allergy Unknown Verified 01/15/23 18:02 iodine Allergy Unknown Verified 01/15/23 18:02 latex Allergy Unknown Verified 01/15/23 18:02 Penicillins Allergy Unknown Verified 01/15/23 18:02 Tetanus Vaccines and Toxoid Allergy Unknown Verified 01/15/23 18:02 tomato Allergy Unknown Verified 01/15/23 18:02 Assessment & Plan Assessment & Plan (1) Major neurocognitive disorder: Status: Acute Code(s): F03.90 - Unspecified dementia, unspecified severity, without behavioral disturbance, psychotic disturbance, mood disturbance, and anxiety Plan Pt is a Macanese-speaking 72-year-old female with a PMH significant for?dementia unspecified, hx of CVA, HLD, HTN, insulin-dependent diabetes type 2, and MDD with psychotic features who is admitted to [facility] for aggressive behavior and hearing voices. Patient lives with her son who states she is becoming increasingly unmanageable at home: Has been tearing up pictures, breaking glass, hitting him in the face, and been non compliant with her medications by spitting them out. Medical consult for admission H&P 03/15: Continue current treatment plan Mood disorder Plan as per Psychiatry HLD/ hx of CVA Continue statin, Plavix HTN Acceptable BP control on current therapies Continue home meds Insulin-dependent type 2 diabetes SSI, Lantus, diabetic diet Abnormal CTA findings CTA at [facility] on 01/17/2023 phone possible colonic mucosal lesion at the splenic flexure versus artifact of under distention Suggestion is for direct visualization with colonoscopy unless one has been done recently Follow-up outpatient with PCP Plan 1. Gather collateral information. 2. Continue with Risperdal as prescribed. On January 19 we increased Risperdal to 1 mg p.o. t.i.d. 3. Reassessment results 4. Trazodone is increased up to 100 mg p.o. q.h.s. in January 19. No improvement of poor sleep. We are going to add a low dose of Ambien at night. The patient finally slept with a combination of trazodone and Ambien. No evidence of delirium or over-sedation. 5. Lower Zoloft of 25 mg daily, probably 50 mg it is over stimulating the patient. 6. Increase gabapentin up to 200 mg p.o. t.i.d. to target anxiety and mood lability on January 23. January 28 we increased gabapentin up to 300 mg p.o. t.i.d. 7. Increase trazodone up to 150 mg p.o. q.h.s. on January 24 to target insomnia 8. Risperdal had been increased January 27 up to 1 mg p.o. b.i.d. and 2 mg p.o. q.h.s. since the patient still agitated at times and psychotic. January 29, we realized that Risperdal has not been working. So we decided to change to Zyprexa 2.5 mg p.o. q.a.m. and 5 mg p.o. q.h.s. 9. Family meeting discussed long-term care placement. 10. Ativan increased to 1 mg p.o. q.8 hours to keep 0.5 as p.r.n. February 14 we decided to discontinue Ativan since the patient was not responding to that anymore 11. February 10, we are increasing Zyprexa to 10 mg p.o. q.h.s. . 12. Start Haldol 2 mg p.o. t.i.d. on February 11. So far, no evidence of EPS or over-sedation. We are going to increase Haldol from 6 mg a day to 9 mg a day on February 13. Since the patient remains grossly disorganized we decided to increase the Haldol up to 5 mg p.o. t.i.d. on February 14.\ 13. Continue melatonin 6 mg p.o. q.h.s. since it has been effective. 14. Continue with trazodone up to 150 p.o. b.i.d. and 200 mg p.o. q.h.s. to target irritability and lower Remeron to 7.5 eventually we will taper it off. 15. Discontinue Remeron tonight March 06. 16. On March 21 we are increasing gabapentin up to 800 mg p.o. t.i.d. 17. Waiting for placement. 18. KUB on April 06 Reason for continued inpatient stay Substantial Risk for: inability to function, rapid decompensation and med/psych decompensation Time Spent With Patient Time: Total time managing care of this patient today __20__ minutes.
[2023-04-06 10:00] VITALS: BP 163/74; PULSE 74; RESP 20; TEMP 36.6; O2SAT 98
[2023-04-06] MEDS: Omeprazole 20 MG CAPSULE.DR PO (10:14)
[2023-04-06] MEDS: OLANZapine 2.5 MG TABLET PO (10:14)
[2023-04-06] MEDS: Insulin Glargine,Hum.rec.anlog 100 UNIT/ML 10 ML VIAL 15 UNIT SUBCUT (10:14)
[2023-04-06] MEDS: Atorvastatin Calcium 20 MG TABLET PO (10:15)
[2023-04-06] MEDS: traZODone HCL 50 MG TABLET 150 MG PO ×2 (10:15→14:52)
[2023-04-06] MEDS: Clopidogrel Bisulfate 75 MG TABLET PO (10:15)
[2023-04-06] MEDS: Memantine HCl 5 MG TABLET PO ×2 (10:15→21:24)
[2023-04-06] MEDS: Gabapentin 300 MG CAPSULE PO ×3 (10:15→21:24)
[2023-04-06 11:24] LABS: Glucose, Whole Blood 130 mg/dL (60-115)
[2023-04-06] MEDS: HaloperidoL 5 MG TABLET PO ×3 (11:37→21:24)
[2023-04-06 16:20] LABS: Glucose, Whole Blood 94 mg/dL (60-115)
[2023-04-06 18:00] VITALS: BP 107/55; PULSE 99; RESP 18; TEMP 36; O2SAT 98
[2023-04-06 20:19] LABS: Glucose, Whole Blood 143 mg/dL (60-115)
[2023-04-06] MEDS: traZODone HCL 100 MG TABLET 200 MG PO (21:23)
[2023-04-06] MEDS: OLANZapine 10 MG TABLET PO (21:23)
[2023-04-06] MEDS: Sennosides/Docusate Sodium TABLET 1 TAB PO (21:23)
[2023-04-06] MEDS: Melatonin 3 MG TABLET 6 MG PO (21:23)
[2023-04-07] MEDS: Omeprazole 20 MG CAPSULE.DR PO (07:24)
[2023-04-07 07:32] LABS: Glucose, Whole Blood 119 mg/dL (60-115)
[2023-04-07 08:00] VITALS: BP 186/74; PULSE 71; RESP 20; TEMP 37; O2SAT 98
[2023-04-07] MEDS: Insulin Glargine,Hum.rec.anlog 100 UNIT/ML 10 ML VIAL 15 UNIT SUBCUT (08:30)
[2023-04-07] MEDS: Memantine HCl 5 MG TABLET PO ×2 (08:30→21:04)
[2023-04-07] MEDS: Gabapentin 300 MG CAPSULE PO ×3 (08:30→21:04)
[2023-04-07] MEDS: Atorvastatin Calcium 20 MG TABLET PO (08:30)
[2023-04-07] MEDS: OLANZapine 2.5 MG TABLET PO (08:30)
[2023-04-07] MEDS: HaloperidoL 5 MG TABLET PO ×3 (08:30→21:04)
[2023-04-07] MEDS: traZODone HCL 50 MG TABLET 150 MG PO ×2 (08:30→16:12)
[2023-04-07] MEDS: Clopidogrel Bisulfate 75 MG TABLET PO (08:30)
[2023-04-07] MEDS: Insulin Lispro 100 UNIT/ML 3 ML VIAL SUBCUT (11:19)
[2023-04-07 11:37] LABS: Glucose, Whole Blood 206 mg/dL (60-115)
--- NOTE | 2023-04-07 12:49 | HO.PSYCHPN ---
Subjective Subjective Date of Service: 04/07/23 Reason For Visit: Major Depressive D/o, w/ psychotic features Subjective Notes: Conditional Voluntary Interim History: The nursing staff reported the patient has spit her meds in the morning and she had been more irritable during the weekend. On interview the patient denies new symptoms she stays in her room easily redirectable. We are ordering a new UA rule out UTI. She has refused to have her blood work today in the morning Mental Status Exam Mental Status Exam Patient Appearance: Appropriate Patient Orientation: Person and Situation Level of Consciousness: Awake and Appropriate Patient Behavior: Guarded and Passive Mood Description: Withdrawn Affect Description: Constricted Patient Cognition Impaired: Yes Ability to Follow Directions: Good Speech Pattern: Clear Hallucinations: None Delusions: Paranoid Ideation Thought Process: Distracted and Slowed Thinking Thought Content: positive for [place] Judgement: Poor Diagnostics Vital Signs (24Hr): Vital Signs - 24 hr 04/06/23 18:00 04/07/23 08:00 Temperature 96.8 F 98.6 F Pulse Rate 99 71 Respiratory Rate 18 20 Blood Pressure 107/55 L 186/74 H Pulse Oximetry 98 98 Oxygen Delivery Method Room Air Room Air Labs 04/04/23 11:13 04/04/23 11:13 Labs: Laboratory Results - last 48 hr 04/05/23 04/05/23 04/06/23 16:10 20:28 06:01 POC Glucose 144 H 139 H 117 H 04/06/23 04/06/23 04/06/23 11:20 16:15 20:01 POC Glucose 130 H 94 143 H 04/07/23 04/07/23 07:28 11:10 POC Glucose 119 H 206 H Imaging Radiology Impressions: ITS Impressions KUB X-Ray 03/26/23 09:55 IMPRESSION: There is a moderately large stool burden, suggesting possible constipation. No obstruction or ileus is seen. No free intraperitoneal air noted. Head CT 03/28/23 09:05 IMPRESSION: 1. No acute intracranial process seen. 2. 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 3. Mild cerebral volume loss with chronic small vessel ischemic changes in both cerebral hemispheres. KUB X-Ray 04/06/23 13:34 IMPRESSION: Nonobstructive bowel gas pattern. Medications Medications Current Medications Acetaminophen (Acetaminophen 325 Mg Tablet) 650 mg PO Q6H PRN PRN Reason: Headache/Pain Mild Scale (1-3) Last Admin: 04/06/23 21:32 Dose: 650 mg Al Hydroxide/Mg Hydroxide (Magnesium Hydrox/Alum Hydrox 30 Ml Oral.Susp) 30 ml PO Q6H PRN PRN Reason: Heartburn/Nausea Last Admin: 03/30/23 17:43 Dose: 30 ml Amlodipine Besylate (Amlodipine Besylate 5 Mg Tablet) 5 mg PO BEDTIME [facility]; Protocol Last Admin: 03/28/23 20:48 Dose: 5 mg Atorvastatin Calcium (Atorvastatin Calcium 20 Mg Tablet) 20 mg PO DAILY [facility] Last Admin: 04/07/23 08:30 Dose: 20 mg Clopidogrel Bisulfate (Clopidogrel Bisulfate 75 Mg Tablet) 75 mg PO DAILY [facility] Last Admin: 04/07/23 08:30 Dose: 75 mg Dextrose (Dextrose 50 % 25 Gm/50 Ml Syringe) 25 gm IVPUSH Q15M PRN; Protocol PRN Reason: per Hypoglycemia Standing Ord. Gabapentin (Gabapentin 300 Mg Capsule) 300 mg PO TID [facility] Last Admin: 04/07/23 08:30 Dose: 300 mg Glucose (Glucose Gel 15 Gm Gel..Gram.) 15 gm PO Q15M PRN; Protocol PRN Reason: per Hypoglycemia Standing Ord. Haloperidol (Haloperidol 5 Mg Tablet) 5 mg PO TID [facility] Last Admin: 04/07/23 08:30 Dose: 5 mg Insulin Glargine (Insulin Glargine,Hum.Rec.Anlog 100 Unit/Ml 10 Ml Vial) 15 unit SUBCUT DAILY [facility] Last Admin: 04/07/23 08:30 Dose: 15 unit Insulin Human Lispro (Insulin Lispro 100 Unit/Ml 3 Ml Vial) 0 unit SUBCUT QIDACHS [facility]; Protocol Last Admin: 04/07/23 11:19 Dose: 4 unit Lactulose (Lactulose 20 Gm/30 Ml Solution) 10 gm PO DAILY [facility] Last Admin: 04/07/23 08:48 Dose: Not Given Lisinopril (Lisinopril 10 Mg Tablet) 30 mg PO DAILY [facility] Last Admin: 03/29/23 09:18 Dose: Not Given Lorazepam (Lorazepam 1 Mg Tablet) 1 mg PO Q4H PRN PRN Reason: anxiety/restlessness Last Admin: 04/06/23 03:08 Dose: 1 mg Magnesium Hydroxide (Milk Of Magnesia 30 Ml Oral.Susp) 30 ml PO DAILY PRN PRN Reason: Constipation Last Admin: 03/23/23 09:26 Dose: 30 ml Melatonin (Melatonin 3 Mg Tablet) 6 mg PO BEDTIME [facility] Last Admin: 04/06/23 21:23 Dose: 6 mg Memantine (Memantine Hcl 5 Mg Tablet) 5 mg PO BID [facility] Last Admin: 04/07/23 08:30 Dose: 5 mg Olanzapine (Olanzapine 2.5 Mg Tablet) 2.5 mg PO DAILY [facility] Last Admin: 04/07/23 08:30 Dose: 2.5 mg Olanzapine (Olanzapine Odt 10 Mg Tab.Rapdis) 5 mg TRANSLINGU BID PRN PRN Reason: Psychosis Last Admin: 04/02/23 02:46 Dose: 5 mg Olanzapine (Olanzapine 10 Mg Tablet) 10 mg PO BEDTIME [facility] Last Admin: 04/06/23 21:23 Dose: 10 mg Omeprazole (Omeprazole 20 Mg Capsule.Dr) 20 mg PO DAILY@0700 [facility] Last Admin: 04/07/23 07:24 Dose: 20 mg Senna/Docusate Sodium (Sennosides/Docusate Sodium Tablet) 1 tab PO BID [facility] Last Admin: 04/07/23 08:48 Dose: Not Given Trazodone HCl (Trazodone Hcl 50 Mg Tablet) 50 mg PO BEDTIME MRX1 PRN PRN Reason: Insomnia Last Admin: 04/06/23 03:08 Dose: 50 mg Trazodone HCl (Trazodone Hcl 100 Mg Tablet) 200 mg PO BEDTIME [facility] Last Admin: 04/06/23 21:23 Dose: 200 mg Trazodone HCl (Trazodone Hcl 50 Mg Tablet) 150 mg PO BID@0900,1500 [facility] Last Admin: 04/07/23 08:30 Dose: 150 mg Allergies Allergies Allergy/AdvReac Type Severity Reaction Status Date / Time aspirin Allergy Unknown Verified 01/15/23 18:02 egg Allergy Unknown Verified 01/15/23 18:02 Fish Containing Products Allergy Unknown Verified 01/15/23 18:02 ibuprofen Allergy Unknown Verified 01/15/23 18:02 Influenza Virus Vaccines Allergy Unknown Verified 01/15/23 18:02 iodine Allergy Unknown Verified 01/15/23 18:02 latex Allergy Unknown Verified 01/15/23 18:02 Penicillins Allergy Unknown Verified 01/15/23 18:02 Tetanus Vaccines and Toxoid Allergy Unknown Verified 01/15/23 18:02 tomato Allergy Unknown Verified 01/15/23 18:02 Assessment & Plan Assessment & Plan (1) Major neurocognitive disorder: Status: Acute Code(s): F03.90 - Unspecified dementia, unspecified severity, without behavioral disturbance, psychotic disturbance, mood disturbance, and anxiety Plan Pt is a Kiswahili-speaking 72-year-old female with a PMH significant for?dementia unspecified, hx of CVA, HLD, HTN, insulin-dependent diabetes type 2, and MDD with psychotic features who is admitted to [facility] for aggressive behavior and hearing voices. Patient lives with her son who states she is becoming increasingly unmanageable at home: Has been tearing up pictures, breaking glass, hitting him in the face, and been non compliant with her medications by spitting them out. Medical consult for admission H&P 03/15: Continue current treatment plan Mood disorder Plan as per Psychiatry HLD/ hx of CVA Continue statin, Plavix HTN Acceptable BP control on current therapies Continue home meds Insulin-dependent type 2 diabetes SSI, Lantus, diabetic diet Abnormal CTA findings CTA at [facility] on 01/17/2023 phone possible colonic mucosal lesion at the splenic flexure versus artifact of under distention Suggestion is for direct visualization with colonoscopy unless one has been done recently Follow-up outpatient with PCP Plan 1. Gather collateral information. 2. Continue with Risperdal as prescribed. On January 19 we increased Risperdal to 1 mg p.o. t.i.d. 3. Reassessment results 4. Trazodone is increased up to 100 mg p.o. q.h.s. in January 19. No improvement of poor sleep. We are going to add a low dose of Ambien at night. The patient finally slept with a combination of trazodone and Ambien. No evidence of delirium or over-sedation. 5. Lower Zoloft of 25 mg daily, probably 50 mg it is over stimulating the patient. 6. Increase gabapentin up to 200 mg p.o. t.i.d. to target anxiety and mood lability on January 23. January 28 we increased gabapentin up to 300 mg p.o. t.i.d. 7. Increase trazodone up to 150 mg p.o. q.h.s. on January 24 to target insomnia 8. Risperdal had been increased January 27 up to 1 mg p.o. b.i.d. and 2 mg p.o. q.h.s. since the patient still agitated at times and psychotic. January 29, we realized that Risperdal has not been working. So we decided to change to Zyprexa 2.5 mg p.o. q.a.m. and 5 mg p.o. q.h.s. 9. Family meeting discussed long-term care placement. 10. Ativan increased to 1 mg p.o. q.8 hours to keep 0.5 as p.r.n. February 14 we decided to discontinue Ativan since the patient was not responding to that anymore 11. February 10, we are increasing Zyprexa to 10 mg p.o. q.h.s. . 12. Start Haldol 2 mg p.o. t.i.d. on February 11. So far, no evidence of EPS or over-sedation. We are going to increase Haldol from 6 mg a day to 9 mg a day on February 13. Since the patient remains grossly disorganized we decided to increase the Haldol up to 5 mg p.o. t.i.d. on February 14.\ 13. Continue melatonin 6 mg p.o. q.h.s. since it has been effective. 14. Continue with trazodone up to 150 p.o. b.i.d. and 200 mg p.o. q.h.s. to target irritability and lower Remeron to 7.5 eventually we will taper it off. 15. Discontinue Remeron tonight March 06. 16. On March 21 we are increasing gabapentin up to 800 mg p.o. t.i.d. 17. Waiting for placement. 18. KUB on April 06. It came back negative. 19. UA April 07 rule out UTI Reason for continued inpatient stay Substantial Risk for: inability to function, rapid decompensation and med/psych decompensation Time Spent With Patient Time: Total time managing care of this patient today __20__ minutes.
[2023-04-07 16:36] LABS: Glucose, Whole Blood 111 mg/dL (60-115)
[2023-04-07 18:00] VITALS: BP 112/79; PULSE 72; RESP 16; TEMP 36.6; O2SAT 96
[2023-04-07 20:05] LABS: Glucose, Whole Blood 115 mg/dL (60-115)
[2023-04-07] MEDS: OLANZapine 10 MG TABLET PO (21:04)
[2023-04-07] MEDS: Melatonin 3 MG TABLET 6 MG PO (21:04)
[2023-04-07] MEDS: traZODone HCL 100 MG TABLET 200 MG PO (21:04)
[2023-04-07] MEDS: Sennosides/Docusate Sodium TABLET 1 TAB PO (21:05)
[2023-04-08 06:00] VITALS: BP 110/60; PULSE 72; RESP 18; TEMP 36.7; O2SAT 95
[2023-04-08] MEDS: Omeprazole 20 MG CAPSULE.DR PO (06:15)
[2023-04-08 06:32] LABS: Glucose, Whole Blood 102 mg/dL (60-115)
[2023-04-08] MEDS: Insulin Glargine,Hum.rec.anlog 100 UNIT/ML 10 ML VIAL 15 UNIT SUBCUT (08:40)
--- NOTE | 2023-04-08 08:43 | P.PNPSI_ITS ---
Subjective Subjective Date of Service: 04/08/23 Reason For Visit: Major Depressive D/o, w/ psychotic features Subjective Notes: Conditional Voluntary Healthcare Proxy: Yes Interim History: The nursing staff reported the patient had been compliant with treatment. Sometimes she is slightly irritable but easily redirectable. The patient is at this moment at her baseline, she is chronically demented, irritable at times but redirectable. We have not made any medication changes for more than 60 days and so far the patient had been manageable. We are waiting for placement at this point. On interview, the patient was pleasantly confused, easily redirectable she complained of some back pain and we gave her Tylenol. Mental Status Exam Mental Status Exam Patient Appearance: Appropriate Patient Orientation: Person Level of Consciousness: Awake Patient Behavior: Guarded and Passive Mood Description: Withdrawn Affect Description: Calm Patient Cognition Impaired: Yes Ability to Follow Directions: Fair Speech Pattern: Clear Hallucinations: None Delusions: Not Present Thought Process: Distracted Thought Content: positive for [place] Judgement: Poor Diagnostics Vital Signs (24Hr): Vital Signs - 24 hr 04/07/23 18:00 Temperature 98 F Pulse Rate 72 Respiratory Rate 16 Blood Pressure 112/79 Pulse Oximetry 96 Oxygen Delivery Method Room Air Labs 04/04/23 11:13 04/04/23 11:13 Labs: Laboratory Results - last 48 hr 04/06/23 04/06/23 04/06/23 11:20 16:15 20:01 POC Glucose 130 H 94 143 H 04/07/23 04/07/23 04/07/23 07:28 11:10 16:32 POC Glucose 119 H 206 H 111 04/07/23 04/08/23 19:55 06:24 POC Glucose 115 102 Imaging Radiology Impressions: ITS Impressions KUB X-Ray 03/26/23 09:55 IMPRESSION: There is a moderately large stool burden, suggesting possible constipation. No obstruction or ileus is seen. No free intraperitoneal air noted. Head CT 03/28/23 09:05 IMPRESSION: 1. No acute intracranial process seen. 2. 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 3. Mild cerebral volume loss with chronic small vessel ischemic changes in both cerebral hemispheres. KUB X-Ray 04/06/23 13:34 IMPRESSION: Nonobstructive bowel gas pattern. Medications Medications Current Medications Acetaminophen (Acetaminophen 325 Mg Tablet) 650 mg PO Q6H PRN PRN Reason: Headache/Pain Mild Scale (1-3) Last Admin: 04/06/23 21:32 Dose: 650 mg Al Hydroxide/Mg Hydroxide (Magnesium Hydrox/Alum Hydrox 30 Ml Oral.Susp) 30 ml PO Q6H PRN PRN Reason: Heartburn/Nausea Last Admin: 03/30/23 17:43 Dose: 30 ml Amlodipine Besylate (Amlodipine Besylate 5 Mg Tablet) 5 mg PO BEDTIME [facility]; Protocol Last Admin: 03/28/23 20:48 Dose: 5 mg Atorvastatin Calcium (Atorvastatin Calcium 20 Mg Tablet) 20 mg PO DAILY [facility] Last Admin: 04/07/23 08:30 Dose: 20 mg Clopidogrel Bisulfate (Clopidogrel Bisulfate 75 Mg Tablet) 75 mg PO DAILY [facility] Last Admin: 04/07/23 08:30 Dose: 75 mg Dextrose (Dextrose 50 % 25 Gm/50 Ml Syringe) 25 gm IVPUSH Q15M PRN; Protocol PRN Reason: per Hypoglycemia Standing Ord. Gabapentin (Gabapentin 300 Mg Capsule) 300 mg PO TID [facility] Last Admin: 04/07/23 21:04 Dose: 300 mg Glucose (Glucose Gel 15 Gm Gel..Gram.) 15 gm PO Q15M PRN; Protocol PRN Reason: per Hypoglycemia Standing Ord. Haloperidol (Haloperidol 5 Mg Tablet) 5 mg PO TID [facility] Last Admin: 04/07/23 21:04 Dose: 5 mg Insulin Glargine (Insulin Glargine,Hum.Rec.Anlog 100 Unit/Ml 10 Ml Vial) 15 unit SUBCUT DAILY [facility] Last Admin: 04/07/23 08:30 Dose: 15 unit Insulin Human Lispro (Insulin Lispro 100 Unit/Ml 3 Ml Vial) 0 unit SUBCUT QIDACHS [facility]; Protocol Last Admin: 04/07/23 21:05 Dose: Not Given Lactulose (Lactulose 20 Gm/30 Ml Solution) 10 gm PO DAILY [facility] Last Admin: 04/07/23 08:48 Dose: Not Given Lisinopril (Lisinopril 10 Mg Tablet) 30 mg PO DAILY [facility] Last Admin: 03/29/23 09:18 Dose: Not Given Lorazepam (Lorazepam 1 Mg Tablet) 1 mg PO Q4H PRN PRN Reason: anxiety/restlessness Last Admin: 04/06/23 03:08 Dose: 1 mg Magnesium Hydroxide (Milk Of Magnesia 30 Ml Oral.Susp) 30 ml PO DAILY PRN PRN Reason: Constipation Last Admin: 03/23/23 09:26 Dose: 30 ml Melatonin (Melatonin 3 Mg Tablet) 6 mg PO BEDTIME [facility] Last Admin: 04/07/23 21:04 Dose: 6 mg Memantine (Memantine Hcl 5 Mg Tablet) 5 mg PO BID [facility] Last Admin: 04/07/23 21:04 Dose: 5 mg Olanzapine (Olanzapine 2.5 Mg Tablet) 2.5 mg PO DAILY [facility] Last Admin: 04/07/23 08:30 Dose: 2.5 mg Olanzapine (Olanzapine Odt 10 Mg Tab.Rapdis) 5 mg TRANSLINGU BID PRN PRN Reason: Psychosis Last Admin: 04/02/23 02:46 Dose: 5 mg Olanzapine (Olanzapine 10 Mg Tablet) 10 mg PO BEDTIME [facility] Last Admin: 04/07/23 21:04 Dose: 10 mg Omeprazole (Omeprazole 20 Mg Capsule.Dr) 20 mg PO DAILY@0700 [facility] Last Admin: 04/08/23 06:15 Dose: 20 mg Senna/Docusate Sodium (Sennosides/Docusate Sodium Tablet) 1 tab PO BID [facility] Last Admin: 04/07/23 21:05 Dose: 1 tab Trazodone HCl (Trazodone Hcl 50 Mg Tablet) 50 mg PO BEDTIME MRX1 PRN PRN Reason: Insomnia Last Admin: 04/06/23 03:08 Dose: 50 mg Trazodone HCl (Trazodone Hcl 100 Mg Tablet) 200 mg PO BEDTIME [facility] Last Admin: 04/07/23 21:04 Dose: 200 mg Trazodone HCl (Trazodone Hcl 50 Mg Tablet) 150 mg PO BID@0900,1500 [facility] Last Admin: 04/07/23 16:12 Dose: 150 mg Allergies Allergies Allergy/AdvReac Type Severity Reaction Status Date / Time aspirin Allergy Unknown Verified 01/15/23 18:02 egg Allergy Unknown Verified 01/15/23 18:02 Fish Containing Products Allergy Unknown Verified 01/15/23 18:02 ibuprofen Allergy Unknown Verified 01/15/23 18:02 Influenza Virus Vaccines Allergy Unknown Verified 01/15/23 18:02 iodine Allergy Unknown Verified 01/15/23 18:02 latex Allergy Unknown Verified 01/15/23 18:02 Penicillins Allergy Unknown Verified 01/15/23 18:02 Tetanus Vaccines and Toxoid Allergy Unknown Verified 01/15/23 18:02 tomato Allergy Unknown Verified 01/15/23 18:02 Assessment & Plan Assessment & Plan (1) Dementia: Status: Acute Code(s): F03.90 - Unspecified dementia, unspecified severity, without behavioral disturbance, psychotic disturbance, mood disturbance, and anxiety (2) Psychotic disorder: Status: Acute Code(s): F29 - Unspecified psychosis not due to a substance or known physiological condition Plan Pt is a Chinese-speaking 72-year-old female with a PMH significant for?dementia unspecified, hx of CVA, HLD, HTN, insulin-dependent diabetes type 2, and MDD with psychotic features who is admitted to [facility] for aggressive behavior and hearing voices. Patient used to live with her son who states she is becoming increasingly unmanageable at home: Has been tearing up pictures, breaking glass, hitting him in the face, and been non compliant with her medications by spitting them out. Medical consult for admission H&P The patient was diagnosed with schizophrenia when she was younger and she had sporadic treatment during her life even though she was able to manage her life and race children. Mood disorder Plan as per Psychiatry HLD/ hx of CVA Continue statin, Plavix HTN Acceptable BP control on current therapies Continue home meds Insulin-dependent type 2 diabetes SSI, Lantus, diabetic diet Abnormal CTA findings CTA at [facility] on 01/17/2023 phone possible colonic mucosal lesion at the splenic flexure versus artifact of under distention Suggestion is for direct visualization with colonoscopy unless one has been done recently Follow-up outpatient with PCP Plan 1. Referral for long-term care. We had several family meetings with her children and they were unable to take care of her. 2. The patient had been on antipsychotics and mood stabilizers with no changes for the last 60 days. At this moment , the patient's behavior is her baseline. 3. The patient carries a diagnosis of schizophrenia and, now she is stable on her psychosis. Even though, her dementia has worsen it in the last months. Even though the patient is demented and irritable at times she is easily redirectable. At this moment, we have achieved the goals of admission and she requires long-term care. Reason for continued inpatient stay Substantial Risk for: inability to function, rapid decompensation and med/psych decompensation Time Spent With Patient Time: Total time managing care of this patient today __20__ minutes.
[2023-04-08] MEDS: Atorvastatin Calcium 20 MG TABLET PO (08:55)
[2023-04-08] MEDS: Clopidogrel Bisulfate 75 MG TABLET PO (08:55)
[2023-04-08] MEDS: OLANZapine 2.5 MG TABLET PO (08:55)
[2023-04-08] MEDS: traZODone HCL 50 MG TABLET 150 MG PO ×2 (08:55→15:37)
[2023-04-08] MEDS: Gabapentin 300 MG CAPSULE PO ×3 (08:55→20:30)
[2023-04-08] MEDS: Sennosides/Docusate Sodium TABLET 1 TAB PO ×2 (08:55→20:30)
[2023-04-08] MEDS: HaloperidoL 5 MG TABLET PO ×3 (08:55→20:30)
[2023-04-08] MEDS: Memantine HCl 5 MG TABLET PO ×2 (08:56→20:30)
[2023-04-08] MEDS: Lactulose 20 GM/30 ML SOLUTION 10 GM PO (08:59)
[2023-04-08 11:34] LABS: Glucose, Whole Blood 166 mg/dL (60-115)
[2023-04-08] MEDS: Insulin Lispro 100 UNIT/ML 3 ML VIAL SUBCUT (11:39)
[2023-04-08] MEDS: LORazepam 1 MG TABLET PO (12:31)
[2023-04-08 16:32] LABS: Glucose, Whole Blood 131 mg/dL (60-115)
[2023-04-08 17:37] VITALS: BP 70/40; O2SAT 97
[2023-04-08 17:51] VITALS: BP 126/60; PULSE 72; RESP 16; TEMP 36.2; O2SAT 97
--- NOTE | 2023-04-08 18:11 | PC.ADMIT ---
Patient BP this evening 77/51 R 70/40 L. Rechecked BP up to 126/60. Dr Killian informed. Patient asymptomatic.
[2023-04-08 20:02] LABS: Glucose, Whole Blood 136 mg/dL (60-115)
[2023-04-08] MEDS: OLANZapine 10 MG TABLET PO (20:30)
[2023-04-08] MEDS: Melatonin 3 MG TABLET 6 MG PO (20:30)
[2023-04-08] MEDS: traZODone HCL 100 MG TABLET 200 MG PO (20:30)
[2023-04-09] MEDS: Acetaminophen 325 MG TABLET 650 MG PO (04:31)
[2023-04-09] MEDS: Omeprazole 20 MG CAPSULE.DR PO (05:06)
[2023-04-09 06:00] VITALS: BP 105/54; PULSE 82; RESP 18; TEMP 36.6; O2SAT 100
[2023-04-09 06:44] LABS: Glucose, Whole Blood 87 mg/dL (60-115)
[2023-04-09] MEDS: Memantine HCl 5 MG TABLET PO ×2 (08:06→21:02)
[2023-04-09] MEDS: Atorvastatin Calcium 20 MG TABLET PO (08:06)
[2023-04-09] MEDS: Gabapentin 300 MG CAPSULE PO ×2 (08:06→21:01)
[2023-04-09] MEDS: Sennosides/Docusate Sodium TABLET 1 TAB PO ×2 (08:06→21:02)
[2023-04-09] MEDS: traZODone HCL 50 MG TABLET 150 MG PO (08:06)
[2023-04-09] MEDS: LORazepam 1 MG TABLET PO ×2 (08:06→18:12)
[2023-04-09] MEDS: Clopidogrel Bisulfate 75 MG TABLET PO (08:06)
[2023-04-09] MEDS: OLANZapine 2.5 MG TABLET PO (08:07)
[2023-04-09] MEDS: HaloperidoL 5 MG TABLET PO ×2 (08:07→21:02)
[2023-04-09] MEDS: Lactulose 20 GM/30 ML SOLUTION 10 GM PO (08:08)
[2023-04-09] MEDS: Insulin Glargine,Hum.rec.anlog 100 UNIT/ML 10 ML VIAL 15 UNIT SUBCUT (08:35)
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
[2023-04-09 11:20] LABS: Glucose, Whole Blood 151 mg/dL (60-115)
[2023-04-09] MEDS: Insulin Lispro 100 UNIT/ML 3 ML VIAL SUBCUT (11:31)
[2023-04-09 16:39] LABS: Glucose, Whole Blood 75 mg/dL (60-115)
[2023-04-09 18:00] VITALS: BP 138/65; PULSE 93; RESP 17; TEMP 36.4; O2SAT 98
[2023-04-09] MEDS: Melatonin 3 MG TABLET 6 MG PO (21:02)
[2023-04-09] MEDS: OLANZapine 10 MG TABLET PO (21:02)
[2023-04-09] MEDS: traZODone HCL 100 MG TABLET 200 MG PO (21:02)
[2023-04-09 21:19] LABS: Glucose, Whole Blood 100 mg/dL (60-115)
[2023-04-10] MEDS: OLANZapine ODT 10 MG TAB.RAPDIS 5 MG TRANSLINGU (00:21)
[2023-04-10] MEDS: LORazepam 1 MG TABLET PO (00:22)
[2023-04-10] MEDS: traZODone HCL 50 MG TABLET PO (00:22)
[2023-04-10 06:23] LABS: Glucose, Whole Blood 90 mg/dL (60-115)
[2023-04-10 07:00] VITALS: BMI 21.3
[2023-04-10 09:00] VITALS: BP 126/62; PULSE 88; RESP 18; TEMP 36.5; O2SAT 99
[2023-04-10] MEDS: Clopidogrel Bisulfate 75 MG TABLET PO (10:07)
[2023-04-10] MEDS: Lactulose 20 GM/30 ML SOLUTION 10 GM PO (10:07)
[2023-04-10] MEDS: Gabapentin 300 MG CAPSULE PO ×2 (10:08→20:36)
[2023-04-10] MEDS: traZODone HCL 50 MG TABLET 150 MG PO (10:08)
[2023-04-10] MEDS: HaloperidoL 5 MG TABLET PO ×2 (10:08→20:36)
[2023-04-10] MEDS: Sennosides/Docusate Sodium TABLET 1 TAB PO ×2 (10:08→20:36)
[2023-04-10] MEDS: Memantine HCl 5 MG TABLET PO ×2 (10:08→20:36)
[2023-04-10] MEDS: OLANZapine 2.5 MG TABLET PO (10:08)
[2023-04-10] MEDS: Insulin Glargine,Hum.rec.anlog 100 UNIT/ML 10 ML VIAL 15 UNIT SUBCUT (10:08)
[2023-04-10] MEDS: Atorvastatin Calcium 20 MG TABLET PO (10:08)
[2023-04-10 11:35] LABS: Glucose, Whole Blood 117 mg/dL (60-115)
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
[2023-04-10 16:18] LABS: Glucose, Whole Blood 68 mg/dL (60-115)
[2023-04-10] MEDS: Omeprazole 20 MG CAPSULE.DR PO (17:06)
[2023-04-10 20:00] VITALS: BP 131/59; PULSE 92; RESP 18; TEMP 36; O2SAT 98
[2023-04-10] MEDS: OLANZapine 10 MG TABLET PO (20:36)
[2023-04-10] MEDS: Melatonin 3 MG TABLET 6 MG PO (20:36)
[2023-04-10] MEDS: traZODone HCL 100 MG TABLET 200 MG PO (20:36)
[2023-04-10 20:37] LABS: Glucose, Whole Blood 126 mg/dL (60-115)
[2023-04-11] MEDS: Omeprazole 20 MG CAPSULE.DR PO (05:30)
[2023-04-11 06:43] LABS: Glucose, Whole Blood 82 mg/dL (60-115)
[2023-04-11 08:00] VITALS: BP 128/60; PULSE 93; RESP 18; TEMP 36.8; O2SAT 97
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
[2023-04-11] MEDS: Atorvastatin Calcium 20 MG TABLET PO (08:20)
[2023-04-11] MEDS: Clopidogrel Bisulfate 75 MG TABLET PO (08:20)
[2023-04-11] MEDS: Gabapentin 300 MG CAPSULE PO ×3 (08:20→20:36)
[2023-04-11] MEDS: Memantine HCl 5 MG TABLET PO ×2 (08:20→20:35)
[2023-04-11] MEDS: traZODone HCL 50 MG TABLET 150 MG PO ×2 (08:20→15:26)
[2023-04-11] MEDS: OLANZapine 2.5 MG TABLET PO (08:20)
[2023-04-11] MEDS: HaloperidoL 5 MG TABLET PO ×3 (08:20→20:37)
[2023-04-11 08:37] LABS: Glucose, Whole Blood 106 mg/dL (60-115)
[2023-04-11] MEDS: Insulin Glargine,Hum.rec.anlog 100 UNIT/ML 10 ML VIAL 15 UNIT SUBCUT (08:39)
[2023-04-11 11:37] LABS: Glucose, Whole Blood 170 mg/dL (60-115)
[2023-04-11] MEDS: Insulin Lispro 100 UNIT/ML 3 ML VIAL SUBCUT ×2 (11:51→20:35)
[2023-04-11 16:29] LABS: Glucose, Whole Blood 101 mg/dL (60-115)
[2023-04-11 18:00] VITALS: BP 187/73; PULSE 85; RESP 18; TEMP 36.2; O2SAT 96
[2023-04-11 20:19] LABS: Glucose, Whole Blood 162 mg/dL (60-115)
[2023-04-11] MEDS: OLANZapine 10 MG TABLET PO (20:35)
[2023-04-11] MEDS: Melatonin 3 MG TABLET 6 MG PO (20:35)
[2023-04-11] MEDS: Sennosides/Docusate Sodium TABLET 1 TAB PO (20:35)
[2023-04-11] MEDS: traZODone HCL 100 MG TABLET 200 MG PO (20:36)
[2023-04-11] MEDS: LORazepam 1 MG TABLET PO (20:36)
[2023-04-12] MEDS: Acetaminophen 325 MG TABLET 650 MG PO (06:31)
[2023-04-12 06:48] LABS: Glucose, Whole Blood 163 mg/dL (60-115)
[2023-04-12 08:52] VITALS: BP 152/73; PULSE 69; RESP 16; TEMP 36.4; O2SAT 100
[2023-04-12] MEDS: Memantine HCl 5 MG TABLET PO ×2 (09:18→20:21)
[2023-04-12] MEDS: Clopidogrel Bisulfate 75 MG TABLET PO (09:18)
[2023-04-12] MEDS: Sennosides/Docusate Sodium TABLET 1 TAB PO ×2 (09:18→20:21)
[2023-04-12] MEDS: Lactulose 20 GM/30 ML SOLUTION 10 GM PO (09:18)
[2023-04-12] MEDS: Atorvastatin Calcium 20 MG TABLET PO (09:18)
[2023-04-12] MEDS: HaloperidoL 5 MG TABLET PO ×3 (09:18→20:21)
[2023-04-12] MEDS: OLANZapine 2.5 MG TABLET PO (09:18)
[2023-04-12] MEDS: traZODone HCL 50 MG TABLET 150 MG PO ×2 (09:18→15:50)
[2023-04-12] MEDS: Gabapentin 300 MG CAPSULE PO ×3 (09:18→20:22)
[2023-04-12] MEDS: Insulin Glargine,Hum.rec.anlog 100 UNIT/ML 10 ML VIAL 15 UNIT SUBCUT (09:19)
[2023-04-12 11:21] LABS: Glucose, Whole Blood 134 mg/dL (60-115)
[2023-04-12 16:20] LABS: Glucose, Whole Blood 205 mg/dL (60-115)
[2023-04-12] MEDS: Insulin Lispro 100 UNIT/ML 3 ML VIAL SUBCUT (17:04)
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
[2023-04-12 18:00] VITALS: BP 159/72; PULSE 93; TEMP 36.1; O2SAT 94
[2023-04-12 20:02] LABS: Glucose, Whole Blood 140 mg/dL (60-115)
[2023-04-12] MEDS: Melatonin 3 MG TABLET 6 MG PO (20:20)
[2023-04-12] MEDS: LORazepam 1 MG TABLET PO (20:21)
[2023-04-12] MEDS: OLANZapine 10 MG TABLET PO (20:22)
[2023-04-12] MEDS: traZODone HCL 100 MG TABLET 200 MG PO (20:22)
[2023-04-13] MEDS: traZODone HCL 50 MG TABLET PO (02:06)
[2023-04-13] MEDS: LORazepam 1 MG TABLET PO (02:06)
[2023-04-13] MEDS: Omeprazole 20 MG CAPSULE.DR PO (06:14)
[2023-04-13 06:31] LABS: Glucose, Whole Blood 100 mg/dL (60-115)
[2023-04-13 10:10] VITALS: BP 123/67; PULSE 79; RESP 16; TEMP 36.3; O2SAT 99
[2023-04-13] MEDS: Sennosides/Docusate Sodium TABLET 1 TAB PO ×2 (10:12→20:52)
[2023-04-13] MEDS: Gabapentin 300 MG CAPSULE PO ×3 (10:12→20:51)
[2023-04-13] MEDS: HaloperidoL 5 MG TABLET PO ×3 (10:12→20:51)
[2023-04-13] MEDS: Atorvastatin Calcium 20 MG TABLET PO (10:13)
[2023-04-13] MEDS: Memantine HCl 5 MG TABLET PO ×2 (10:13→20:51)
[2023-04-13] MEDS: traZODone HCL 50 MG TABLET 150 MG PO ×2 (10:13→15:14)
[2023-04-13] MEDS: OLANZapine 2.5 MG TABLET PO (10:13)
[2023-04-13] MEDS: Insulin Glargine,Hum.rec.anlog 100 UNIT/ML 10 ML VIAL 15 UNIT SUBCUT (10:14)
[2023-04-13] MEDS: Lactulose 20 GM/30 ML SOLUTION 10 GM PO (10:14)
[2023-04-13] MEDS: Clopidogrel Bisulfate 75 MG TABLET PO (10:19)
[2023-04-13 11:14] LABS: Glucose, Whole Blood 137 mg/dL (60-115)
[2023-04-13 11:36] LABS: Glucose, Whole Blood 158 mg/dL (60-115)
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
[2023-04-13 16:22] LABS: Glucose, Whole Blood 154 mg/dL (60-115)
[2023-04-13 18:00] VITALS: BP 122/61; PULSE 73; RESP 16; TEMP 36; O2SAT 97
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
[2023-04-13] MEDS: Melatonin 3 MG TABLET 6 MG PO (20:51)
[2023-04-13] MEDS: traZODone HCL 100 MG TABLET 200 MG PO (20:52)
[2023-04-13] MEDS: OLANZapine 10 MG TABLET PO (20:52)
[2023-04-13 21:05] LABS: Glucose, Whole Blood 77 mg/dL (60-115)
[2023-04-14 06:00] VITALS: BP 134/68; PULSE 72; RESP 16; TEMP 36.5; O2SAT 94
[2023-04-14 06:17] LABS: Glucose, Whole Blood 79 mg/dL (60-115)
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
[2023-04-14] MEDS: Lactulose 20 GM/30 ML SOLUTION 10 GM PO (11:15)
[2023-04-14] MEDS: traZODone HCL 50 MG TABLET 150 MG PO ×2 (11:16→14:52)
[2023-04-14] MEDS: Gabapentin 300 MG CAPSULE PO ×3 (11:16→20:14)
[2023-04-14] MEDS: Omeprazole 20 MG CAPSULE.DR PO (11:16)
[2023-04-14] MEDS: Sennosides/Docusate Sodium TABLET 1 TAB PO ×2 (11:16→20:13)
[2023-04-14] MEDS: Atorvastatin Calcium 20 MG TABLET PO (11:17)
[2023-04-14] MEDS: OLANZapine 2.5 MG TABLET PO (11:17)
[2023-04-14] MEDS: HaloperidoL 5 MG TABLET PO ×3 (11:17→20:14)
[2023-04-14] MEDS: Clopidogrel Bisulfate 75 MG TABLET PO (11:17)
[2023-04-14] MEDS: Insulin Glargine,Hum.rec.anlog 100 UNIT/ML 10 ML VIAL 15 UNIT SUBCUT (11:17)
[2023-04-14] MEDS: Memantine HCl 5 MG TABLET PO ×2 (11:23→20:13)
[2023-04-14 11:28] LABS: Glucose, Whole Blood 77 mg/dL (60-115)
[2023-04-14] MEDS: LORazepam 1 MG TABLET PO (14:52)
[2023-04-14 16:30] LABS: Glucose, Whole Blood 204 mg/dL (60-115)
[2023-04-14 18:00] VITALS: BP 125/63; PULSE 62; RESP 18; TEMP 35.9; O2SAT 97
[2023-04-14] MEDS: Melatonin 3 MG TABLET 6 MG PO (20:13)
[2023-04-14] MEDS: traZODone HCL 100 MG TABLET 200 MG PO (20:13)
[2023-04-14] MEDS: OLANZapine 10 MG TABLET PO (20:14)
[2023-04-14 20:29] LABS: Glucose, Whole Blood 90 mg/dL (60-115)
[2023-04-15] MEDS: traZODone HCL 50 MG TABLET PO (01:14)
[2023-04-15] MEDS: Acetaminophen 325 MG TABLET 650 MG PO (01:14)
[2023-04-15] MEDS: OLANZapine ODT 10 MG TAB.RAPDIS 5 MG TRANSLINGU (01:15)
[2023-04-15 08:15] VITALS: BP 119/64; PULSE 96; RESP 18; TEMP 35.6; O2SAT 99
[2023-04-15 09:07] LABS: COVID-19 Test Negative (Negative); IDNOW Serial# 6674DD1D
[2023-04-15] MEDS: traZODone HCL 50 MG TABLET 150 MG PO ×2 (09:16→14:20)
[2023-04-15] MEDS: Sennosides/Docusate Sodium TABLET 1 TAB PO ×2 (09:17→22:06)
[2023-04-15] MEDS: HaloperidoL 5 MG TABLET PO ×3 (09:17→22:07)
[2023-04-15] MEDS: Memantine HCl 5 MG TABLET PO ×2 (09:17→22:06)
[2023-04-15] MEDS: Clopidogrel Bisulfate 75 MG TABLET PO (09:18)
[2023-04-15] MEDS: Gabapentin 300 MG CAPSULE PO ×3 (09:18→22:07)
[2023-04-15] MEDS: OLANZapine 2.5 MG TABLET PO (09:18)
[2023-04-15] MEDS: Atorvastatin Calcium 20 MG TABLET PO (09:18)
[2023-04-15] MEDS: Lactulose 20 GM/30 ML SOLUTION 10 GM PO (09:19)
[2023-04-15] MEDS: Omeprazole 20 MG CAPSULE.DR PO (09:20)
[2023-04-15] MEDS: Insulin Glargine,Hum.rec.anlog 100 UNIT/ML 10 ML VIAL 15 UNIT SUBCUT (09:41)
[2023-04-15 09:47] LABS: Glucose, Whole Blood 153 mg/dL (60-115)
[2023-04-15 11:39] LABS: Glucose, Whole Blood 130 mg/dL (60-115)
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
[2023-04-15 16:34] LABS: Glucose, Whole Blood 69 mg/dL (60-115)
[2023-04-15 19:45] VITALS: BP 164/74; PULSE 68; RESP 16; TEMP 35.8; O2SAT 96
[2023-04-15 19:56] LABS: Glucose, Whole Blood 102 mg/dL (60-115)
[2023-04-15] MEDS: Melatonin 3 MG TABLET 6 MG PO (22:06)
[2023-04-15] MEDS: OLANZapine 10 MG TABLET PO (22:07)
[2023-04-15] MEDS: traZODone HCL 100 MG TABLET 200 MG PO (22:07)
[2023-04-16 06:00] VITALS: BP 107/55; PULSE 96; RESP 16; TEMP 36.3; O2SAT 97
[2023-04-16] MEDS: Omeprazole 20 MG CAPSULE.DR PO (06:41)
[2023-04-16 06:43] LABS: Glucose, Whole Blood 84 mg/dL (60-115)
[2023-04-16] MEDS: OLANZapine 2.5 MG TABLET PO (08:36)
[2023-04-16] MEDS: traZODone HCL 50 MG TABLET 150 MG PO ×2 (08:36→16:36)
[2023-04-16] MEDS: Atorvastatin Calcium 20 MG TABLET PO (08:36)
[2023-04-16] MEDS: Sennosides/Docusate Sodium TABLET 1 TAB PO ×2 (08:37→20:53)
[2023-04-16] MEDS: Memantine HCl 5 MG TABLET PO ×2 (08:37→20:53)
[2023-04-16] MEDS: HaloperidoL 5 MG TABLET PO ×3 (08:37→20:53)
[2023-04-16] MEDS: Clopidogrel Bisulfate 75 MG TABLET PO (08:37)
[2023-04-16] MEDS: Gabapentin 300 MG CAPSULE PO ×3 (08:37→20:53)
[2023-04-16] MEDS: Insulin Glargine,Hum.rec.anlog 100 UNIT/ML 10 ML VIAL 15 UNIT SUBCUT (08:51)
[2023-04-16] MEDS: Lactulose 20 GM/30 ML SOLUTION 10 GM PO (09:40)
[2023-04-16 11:40] LABS: Glucose, Whole Blood 180 mg/dL (60-115)
--- NOTE | 2023-04-16 12:13 | PC.NURSE ---
Patient did not eat lunch, 2 units of Lispro coverage held.
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
[2023-04-16 16:16] LABS: Glucose, Whole Blood 100 mg/dL (60-115)
[2023-04-16 18:00] VITALS: BP 137/74; PULSE 68; RESP 18; TEMP 36.1; O2SAT 98
[2023-04-16 20:03] LABS: Glucose, Whole Blood 124 mg/dL (60-115)
[2023-04-16] MEDS: traZODone HCL 100 MG TABLET 200 MG PO (20:53)
[2023-04-16] MEDS: Melatonin 3 MG TABLET 6 MG PO (20:53)
[2023-04-16] MEDS: OLANZapine 10 MG TABLET PO (20:53)
[2023-04-17] MEDS: Omeprazole 20 MG CAPSULE.DR PO (05:54)
[2023-04-17 06:47] LABS: Glucose, Whole Blood 92 mg/dL (60-115)
[2023-04-17 07:00] VITALS: BMI 21.4
[2023-04-17 09:10] VITALS: BP 153/72; PULSE 68; RESP 14; TEMP 36.1; O2SAT 98
[2023-04-17] MEDS: Lactulose 20 GM/30 ML SOLUTION 10 GM PO (09:12)
[2023-04-17] MEDS: traZODone HCL 50 MG TABLET 150 MG PO ×2 (09:12→15:04)
[2023-04-17] MEDS: Memantine HCl 5 MG TABLET PO ×2 (09:12→21:44)
[2023-04-17] MEDS: HaloperidoL 5 MG TABLET PO ×3 (09:12→21:44)
[2023-04-17] MEDS: Gabapentin 300 MG CAPSULE PO ×3 (09:12→21:44)
[2023-04-17] MEDS: Sennosides/Docusate Sodium TABLET 1 TAB PO ×2 (09:12→21:44)
[2023-04-17] MEDS: OLANZapine 2.5 MG TABLET PO (09:12)
[2023-04-17] MEDS: LORazepam 1 MG TABLET PO (10:59)
[2023-04-17 11:27] LABS: Glucose, Whole Blood 190 mg/dL (60-115)
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
[2023-04-17 16:34] LABS: Glucose, Whole Blood 150 mg/dL (60-115)
[2023-04-17 18:00] VITALS: BP 141/63; PULSE 66; RESP 18; TEMP 36.1; O2SAT 96
[2023-04-17 20:21] LABS: Glucose, Whole Blood 145 mg/dL (60-115)
[2023-04-17] MEDS: Melatonin 3 MG TABLET 6 MG PO (21:44)
[2023-04-17] MEDS: OLANZapine 10 MG TABLET PO (21:44)
[2023-04-17] MEDS: traZODone HCL 100 MG TABLET 200 MG PO (21:44)
[2023-04-18] MEDS: traZODone HCL 50 MG TABLET PO (00:28)
[2023-04-18] MEDS: Acetaminophen 325 MG TABLET 650 MG PO ×2 (00:28→14:55)
[2023-04-18] MEDS: Omeprazole 20 MG CAPSULE.DR PO (05:44)
[2023-04-18 06:38] LABS: Glucose, Whole Blood 101 mg/dL (60-115)
[2023-04-18 10:03] VITALS: BP 154/72; PULSE 64; RESP 14; TEMP 36.4; O2SAT 97
[2023-04-18] MEDS: OLANZapine ODT 10 MG TAB.RAPDIS 5 MG TRANSLINGU (10:07)
[2023-04-18] MEDS: Sennosides/Docusate Sodium TABLET 1 TAB PO ×2 (10:08→20:42)
[2023-04-18] MEDS: Memantine HCl 5 MG TABLET PO ×2 (10:09→20:42)
[2023-04-18] MEDS: traZODone HCL 50 MG TABLET 150 MG PO ×2 (10:09→14:56)
[2023-04-18] MEDS: Gabapentin 300 MG CAPSULE PO ×3 (10:11→20:42)
[2023-04-18] MEDS: HaloperidoL 5 MG TABLET PO ×3 (10:11→20:42)
[2023-04-18] MEDS: OLANZapine 2.5 MG TABLET PO (10:12)
[2023-04-18] MEDS: Lactulose 20 GM/30 ML SOLUTION 10 GM PO (10:12)
[2023-04-18 11:19] LABS: Glucose, Whole Blood 131 mg/dL (60-115)
[2023-04-18 11:57] LABS: COVID-19 Test Negative (Negative); IDNOW Serial# 08D9AD1C
[2023-04-18] MEDS: Loratadine 10 MG TABLET PO (14:55)
[2023-04-18 16:28] LABS: Glucose, Whole Blood 187 mg/dL (60-115)
[2023-04-18 19:50] VITALS: BP 127/69; PULSE 91; RESP 16; TEMP 36; O2SAT 95
[2023-04-18] MEDS: OLANZapine 10 MG TABLET PO (20:42)
[2023-04-18] MEDS: traZODone HCL 100 MG TABLET 200 MG PO (20:42)
[2023-04-18] MEDS: Melatonin 3 MG TABLET 6 MG PO (20:42)
[2023-04-18 20:51] LABS: Glucose, Whole Blood 140 mg/dL (60-115)
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
[2023-04-19 06:28] LABS: Glucose, Whole Blood 155 mg/dL (60-115)
[2023-04-19 07:50] VITALS: BP 135/77; PULSE 78; RESP 18; TEMP 36.1; O2SAT 97
[2023-04-19] MEDS: Insulin Lispro 100 UNIT/ML 3 ML VIAL SUBCUT ×2 (09:13→16:47)
[2023-04-19] MEDS: Lactulose 20 GM/30 ML SOLUTION 10 GM PO (09:24)
[2023-04-19] MEDS: traZODone HCL 50 MG TABLET 150 MG PO ×2 (10:19→16:47)
[2023-04-19] MEDS: Gabapentin 300 MG CAPSULE PO ×3 (10:19→22:14)
[2023-04-19] MEDS: HaloperidoL 5 MG TABLET PO ×3 (10:20→22:15)
[2023-04-19] MEDS: Omeprazole 20 MG CAPSULE.DR PO (10:21)
[2023-04-19] MEDS: OLANZapine 2.5 MG TABLET PO (10:21)
[2023-04-19] MEDS: Memantine HCl 5 MG TABLET PO ×2 (10:21→22:14)
[2023-04-19] MEDS: Sennosides/Docusate Sodium TABLET 1 TAB PO ×2 (10:21→22:15)
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
[2023-04-19 11:36] LABS: Glucose, Whole Blood 124 mg/dL (60-115)
[2023-04-19 16:17] LABS: Glucose, Whole Blood 174 mg/dL (60-115)
[2023-04-19 20:04] LABS: Glucose, Whole Blood 120 mg/dL (60-115)
[2023-04-19 20:25] VITALS: BP 130/64; PULSE 66; RESP 16; TEMP 36; O2SAT 98
[2023-04-19] MEDS: Melatonin 3 MG TABLET 6 MG PO (22:14)
[2023-04-19] MEDS: traZODone HCL 100 MG TABLET 200 MG PO (22:14)
[2023-04-19] MEDS: OLANZapine 10 MG TABLET PO (22:15)
[2023-04-20 06:24] LABS: Glucose, Whole Blood 129 mg/dL (60-115)
[2023-04-20 08:05] VITALS: BP 118/57; PULSE 74; RESP 18; TEMP 35.7; O2SAT 97
[2023-04-20] MEDS: traZODone HCL 50 MG TABLET 150 MG PO ×2 (08:35→15:05)
[2023-04-20] MEDS: Gabapentin 300 MG CAPSULE PO ×3 (08:35→20:47)
[2023-04-20] MEDS: Memantine HCl 5 MG TABLET PO ×2 (08:36→20:48)
[2023-04-20] MEDS: Omeprazole 20 MG CAPSULE.DR PO (08:36)
[2023-04-20] MEDS: OLANZapine 2.5 MG TABLET PO (08:36)
[2023-04-20] MEDS: HaloperidoL 5 MG TABLET PO ×3 (08:36→20:48)
[2023-04-20] MEDS: Lactulose 20 GM/30 ML SOLUTION 10 GM PO (08:36)
[2023-04-20] MEDS: Sennosides/Docusate Sodium TABLET 1 TAB PO ×2 (08:36→20:48)
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
[2023-04-20 16:03] LABS: COVID-19 Test Negative (Negative); IDNOW Serial# 58CA691E
[2023-04-20 16:13] LABS: Glucose, Whole Blood 132 mg/dL (60-115)
--- NOTE | 2023-04-20 16:14 | PC.NURSE ---
Swabbed for Covid, results negative today.
[2023-04-20 18:00] VITALS: BP 139/74; PULSE 68; RESP 18; TEMP 36.3; O2SAT 98
[2023-04-20 20:12] LABS: Glucose, Whole Blood 131 mg/dL (60-115)
[2023-04-20] MEDS: Acetaminophen 325 MG TABLET 650 MG PO (20:47)
[2023-04-20] MEDS: Melatonin 3 MG TABLET 6 MG PO (20:47)
[2023-04-20] MEDS: OLANZapine 10 MG TABLET PO (20:48)
[2023-04-20] MEDS: traZODone HCL 100 MG TABLET 200 MG PO (20:48)
[2023-04-21] MEDS: Omeprazole 20 MG CAPSULE.DR PO (06:15)
[2023-04-21 06:22] LABS: Glucose, Whole Blood 149 mg/dL (60-115)
[2023-04-21 07:42] LABS: MANUAL DIFF FLAG NO
[2023-04-21 07:46] LABS: Basophils Percent Auto 0.6 % (0-2); Eosinophils Absolute Auto 0.4 X10*3/uL (0.0-0.4); Eosinophils Percent Auto 7.8 % (0-4); Hematocrit 34.8 % (37.0-47.0); Imm Gran Abs Auto 0.01 X10*3/uL (0.00-0.03); Imm Gran Pct Auto 0.2 % (0.0-0.4); Lymphocytes Absolute Auto 1.3 X10*3/uL (1.2-4.9); Lymphocytes Percent Auto 25.5 % (20-40); Mean Corpuscular HGB Conc 31.6 g/dl (31.0-35.0); Mean Corpuscular Hemoglobin 26.7 pg (27.0-33.0); Mean Corpuscular Volume 84.5 fL (80.0-98.0); Mean Platelet Volume 10.6 fL (9.4-12.3); Monocytes Absolute Auto 0.4 X10*3/uL (0.1-1.2); Monocytes Percent Auto 8.2 % (2-11); Neutrophils Percent Auto 57.7 % (45-73); Platelet Count 204 X10*3/uL (160-400); Red Blood Count 4.12 X10*6/uL (4.20-5.50); Red Cell Distribution Width 13.2 % (11.0-16.0); White Blood Count 5.3 X10*3/uL (4.8-10.8)
[2023-04-21 10:14] VITALS: O2SAT 98
[2023-04-21] MEDS: Lactulose 20 GM/30 ML SOLUTION 10 GM PO (10:19)
[2023-04-21] MEDS: OLANZapine 2.5 MG TABLET PO (10:20)
[2023-04-21] MEDS: Sennosides/Docusate Sodium TABLET 1 TAB PO ×2 (10:20→21:11)
[2023-04-21] MEDS: HaloperidoL 5 MG TABLET PO ×3 (10:20→21:12)
[2023-04-21] MEDS: traZODone HCL 50 MG TABLET 150 MG PO ×2 (10:20→16:00)
[2023-04-21] MEDS: Memantine HCl 5 MG TABLET PO ×2 (10:20→21:11)
[2023-04-21] MEDS: Gabapentin 300 MG CAPSULE PO ×3 (10:20→21:11)
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
[2023-04-21 11:15] LABS: COVID-19 Test Negative (Negative); IDNOW Serial# 08D9AD1C
[2023-04-21 11:35] LABS: Glucose, Whole Blood 174 mg/dL (60-115)
[2023-04-21 16:18] LABS: Glucose, Whole Blood 122 mg/dL (60-115)
[2023-04-21 18:00] VITALS: BP 100/66; PULSE 112; RESP 16; TEMP 36.4; O2SAT 97
[2023-04-21 20:32] LABS: Glucose, Whole Blood 164 mg/dL (60-115)
[2023-04-21] MEDS: OLANZapine 10 MG TABLET PO (21:11)
[2023-04-21] MEDS: Melatonin 3 MG TABLET 6 MG PO (21:11)
[2023-04-21] MEDS: Insulin Lispro 100 UNIT/ML 3 ML VIAL SUBCUT (21:12)
[2023-04-21] MEDS: traZODone HCL 100 MG TABLET 200 MG PO (21:12)
[2023-04-22] MEDS: Acetaminophen 325 MG TABLET 650 MG PO (01:28)
[2023-04-22] MEDS: traZODone HCL 50 MG TABLET PO (01:28)
[2023-04-22 06:00] VITALS: BP 157/74; PULSE 66; RESP 16; TEMP 36.9; O2SAT 97
[2023-04-22 06:41] LABS: Glucose, Whole Blood 170 mg/dL (60-115)
[2023-04-22] MEDS: Lactulose 20 GM/30 ML SOLUTION 10 GM PO (08:42)
[2023-04-22] MEDS: Omeprazole 20 MG CAPSULE.DR PO (08:43)
[2023-04-22] MEDS: Memantine HCl 5 MG TABLET PO ×2 (08:43→20:44)
[2023-04-22] MEDS: traZODone HCL 50 MG TABLET 150 MG PO ×2 (08:43→14:18)
[2023-04-22] MEDS: OLANZapine 2.5 MG TABLET PO (08:43)
[2023-04-22] MEDS: Gabapentin 300 MG CAPSULE PO ×3 (08:43→20:44)
[2023-04-22] MEDS: Sennosides/Docusate Sodium TABLET 1 TAB PO ×2 (08:43→20:43)
[2023-04-22] MEDS: HaloperidoL 5 MG TABLET PO ×3 (08:43→20:44)
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
[2023-04-22 11:35] LABS: Glucose, Whole Blood 139 mg/dL (60-115)
[2023-04-22] MEDS: OLANZapine ODT 10 MG TAB.RAPDIS 5 MG TRANSLINGU (14:19)
[2023-04-22 16:20] LABS: Glucose, Whole Blood 154 mg/dL (60-115)
[2023-04-22] MEDS: Insulin Lispro 100 UNIT/ML 3 ML VIAL SUBCUT (17:41)
[2023-04-22 18:00] VITALS: BP 153/75; PULSE 100; RESP 18; TEMP 36.4; O2SAT 97
[2023-04-22 20:30] LABS: Glucose, Whole Blood 104 mg/dL (60-115)
[2023-04-22] MEDS: Melatonin 3 MG TABLET 6 MG PO (20:44)
[2023-04-22] MEDS: traZODone HCL 100 MG TABLET 200 MG PO (20:44)
[2023-04-22] MEDS: OLANZapine 10 MG TABLET PO (20:44)
[2023-04-23] MEDS: OLANZapine ODT 10 MG TAB.RAPDIS 5 MG TRANSLINGU (02:09)
[2023-04-23] MEDS: traZODone HCL 50 MG TABLET PO (02:10)
[2023-04-23] MEDS: Omeprazole 20 MG CAPSULE.DR PO (05:36)
[2023-04-23 06:15] LABS: Glucose, Whole Blood 130 mg/dL (60-115)
[2023-04-23 07:45] VITALS: BP 161/76; PULSE 60; RESP 18; TEMP 36.1; O2SAT 96
--- NOTE | 2023-04-23 09:25 | PM.PSYDC ---
DS: Providers Provider Date of Service: 04/23/23 Date of admission: 01/15/23 16:43 Date of discharge: 04/23/23 Primary care physician: Unknown Physician Consults: 01/15/23 18:41 Consult to Hospitalist Routine Comment: Consulting Provider: Hospitalist Reason For Exam: admission physical 02/26/23 17:35 Consult to Hospitalist Stat Comment: Consulting Provider: Hospitalist Reason For Exam: chest pain, abdominal pain 03/05/23 03:30 Consult to Hospitalist Routine Comment: Consulting Provider: Hospitalist Reason For Exam: Hypertension 03/28/23 07:58 Consult to Hospitalist Stat Comment: Consulting Provider: Hospitalist Reason For Exam: fall head injury confusion Attending physician on discharge: Roland Gonzalez DS: Diagnosis Discharge Diagnosis (1) Dementia: Status: Acute (2) Psychotic disorder: Status: Acute DS: Medications Discharge Medications Home Medications: Home Medications Medication Instructions Recorded Confirmed albuterol 2.5 mg inhalation QID PRN HX of 01/16/23 01/16/23 Asthma atorvastatin 20 mg PO DAILY 01/16/23 01/16/23 clopidogrel 75 mg PO DAILY 01/16/23 01/16/23 insulin glargine 15 units subcut DAILY 01/16/23 01/16/23 Previous Rx's Medication Instructions Recorded acetaminophen 325 mg tablet 650 mg (2 x 325 mg) PO Q6H PRN 04/22/23 Pain, Mild (Pain Scale 1-3) #0 tabs dextrose 40 % oral gel (Glutose-15) 15 g PO Q15M PRN Per Hypoglycemia 04/22/23 Standing Ord. #0 grams gabapentin 300 mg capsule 300 mg PO TID #90 caps 04/22/23 haloperidol 5 mg tablet 5 mg PO TID #0 tabs 04/22/23 lactulose 20 gram/30 mL oral 10 g (15 mL) PO DAILY #0 mL 04/22/23 solution melatonin 3 mg tablet 6 mg (2 x 3 mg) PO BEDTIME #0 tabs 04/22/23 memantine 5 mg tablet 5 mg PO BID #0 tabs 04/22/23 olanzapine 10 mg disintegrating 5 mg (1/2 x 10 mg) translingual 04/22/23 tablet BID PRN Psychosis #0 tabs olanzapine 10 mg tablet 10 mg PO BEDTIME #0 tabs 04/22/23 olanzapine 2.5 mg tablet 2.5 mg PO DAILY #0 tabs 04/22/23 omeprazole 20 mg capsule,delayed 20 mg PO DAILY@0700 #0 caps 04/22/23 release sennosides 8.6 mg-docusate sodium 1 tab PO BID #0 tabs 04/22/23 50 mg tablet (Senna Plus) trazodone 100 mg tablet 200 mg (2 x 100 mg) PO BEDTIME #0 04/22/23 tabs trazodone 50 mg tablet 150 mg (3 x 50 mg) PO 04/22/23 BID@0900,1500 #0 tabs Mental Status Exam Mental Status Exam Patient Appearance: Appropriate Patient Orientation: Person Level of Consciousness: Awake and Follows Commands Patient Behavior: Guarded and Suspicious Mood Description: Withdrawn Affect Description: Constricted Patient Cognition Impaired: Yes Ability to Follow Directions: Fair Speech Pattern: Impoverished and Difficulty Finding Words Hallucinations: None Delusions: Ideas of Reference Thought Process: Distracted and Slowed Thinking Thought Content: positive for [place], positive for Poverty of Content and positive for Thought Blocking Judgement: Poor Data Data Completed and Pending Completed studies during hospitalization [Text1]: 04/16/23 04/16/23 04/16/23 11:36 16:10 19:53 WBC RBC Hgb Hct MCV MCH MCHC RDW Plt Count MPV Immature Gran % (Auto) Neut % (Auto) Lymph % (Auto) [place] % (Auto) Eos % (Auto) Baso % (Auto) Lymph # (Auto) [place] # (Auto) Eos # (Auto) Baso # (Auto) Abs Immat Gran (auto) Absolute Neuts (auto) Absolute Nucleated RBC Nucleated RBC % (auto) POC Glucose 180 H 100 124 H COVID-19 (JAE) COVID-19 Clin Com 04/17/23 04/17/23 04/17/23 06:28 11:14 16:02 WBC RBC Hgb Hct MCV MCH MCHC RDW Plt Count MPV Immature Gran % (Auto) Neut % (Auto) Lymph % (Auto) [place] % (Auto) Eos % (Auto) Baso % (Auto) Lymph # (Auto) [place] # (Auto) Eos # (Auto) Baso # (Auto) Abs Immat Gran (auto) Absolute Neuts (auto) Absolute Nucleated RBC Nucleated RBC % (auto) POC Glucose 92 190 H 150 H COVID-19 (JAE) COVID-19 Clin Com 04/17/23 04/18/23 04/18/23 20:07 06:15 11:00 WBC RBC Hgb Hct MCV MCH MCHC RDW Plt Count MPV Immature Gran % (Auto) Neut % (Auto) Lymph % (Auto) [place] % (Auto) Eos % (Auto) Baso % (Auto) Lymph # (Auto) [place] # (Auto) Eos # (Auto) Baso # (Auto) Abs Immat Gran (auto) Absolute Neuts (auto) Absolute Nucleated RBC Nucleated RBC % (auto) POC Glucose 145 H 101 COVID-19 (JAE) Negative COVID-19 Clin Com See Note 04/18/23 04/18/23 04/18/23 11:13 16:18 20:41 WBC RBC Hgb Hct MCV MCH MCHC RDW Plt Count MPV Immature Gran % (Auto) Neut % (Auto) Lymph % (Auto) [place] % (Auto) Eos % (Auto) Baso % (Auto) Lymph # (Auto) [place] # (Auto) Eos # (Auto) Baso # (Auto) Abs Immat Gran (auto) Absolute Neuts (auto) Absolute Nucleated RBC Nucleated RBC % (auto) POC Glucose 131 H 187 H 140 H COVID-19 (JAE) COVID-19 Clin Com 04/19/23 04/19/23 04/19/23 06:17 11:29 16:13 WBC RBC Hgb Hct MCV MCH MCHC RDW Plt Count MPV Immature Gran % (Auto) Neut % (Auto) Lymph % (Auto) [place] % (Auto) Eos % (Auto) Baso % (Auto) Lymph # (Auto) [place] # (Auto) Eos # (Auto) Baso # (Auto) Abs Immat Gran (auto) Absolute Neuts (auto) Absolute Nucleated RBC Nucleated RBC % (auto) POC Glucose 155 H 124 H 174 H COVID-19 (JAE) COVID-19 Clin Com 04/19/23 04/20/23 04/20/23 19:59 06:14 15:30 WBC RBC Hgb Hct MCV MCH MCHC RDW Plt Count MPV Immature Gran % (Auto) Neut % (Auto) Lymph % (Auto) [place] % (Auto) Eos % (Auto) Baso % (Auto) Lymph # (Auto) [place] # (Auto) Eos # (Auto) Baso # (Auto) Abs Immat Gran (auto) Absolute Neuts (auto) Absolute Nucleated RBC Nucleated RBC % (auto) POC Glucose 120 H 129 H COVID-19 (JAE) Negative COVID-[employer] See Note 04/20/23 04/20/23 04/21/23 16:04 19:45 06:13 WBC RBC Hgb Hct MCV MCH MCHC RDW Plt Count MPV Immature Gran % (Auto) Neut % (Auto) Lymph % (Auto) [place] % (Auto) Eos % (Auto) Baso % (Auto) Lymph # (Auto) [place] # (Auto) Eos # (Auto) Baso # (Auto) Abs Immat Gran (auto) Absolute Neuts (auto) Absolute Nucleated RBC Nucleated RBC % (auto) POC Glucose 132 H 131 H 149 H COVID-19 (JAE) COVID-[employer] 04/21/23 04/21/23 04/21/23 07:38 10:45 11:19 WBC 5.3 RBC 4.12 L Hgb 11.0 L Hct 34.8 L MCV 84.5 MCH 26.7 L MCHC 31.6 RDW 13.2 Plt Count 204 MPV 10.6 Immature Gran % (Auto) 0.2 Neut % (Auto) 57.7 Lymph % (Auto) 25.5 [place] % (Auto) 8.2 Eos % (Auto) 7.8 H Baso % (Auto) 0.6 Lymph # (Auto) 1.3 [place] # (Auto) 0.4 Eos # (Auto) 0.4 Baso # (Auto) 0.0 Abs Immat Gran (auto) 0.01 Absolute Neuts (auto) 3.0 Absolute Nucleated RBC 0.000 Nucleated RBC % (auto) 0.0 POC Glucose 174 H COVID-19 (JAE) Negative COVID-19 [employer] See Note 04/21/23 04/21/23 04/22/23 16:14 19:54 04:45 WBC RBC Hgb Hct MCV MCH MCHC RDW Plt Count MPV Immature Gran % (Auto) Neut % (Auto) Lymph % (Auto) [place] % (Auto) Eos % (Auto) Baso % (Auto) Lymph # (Auto) [place] # (Auto) Eos # (Auto) Baso # (Auto) Abs Immat Gran (auto) Absolute Neuts (auto) Absolute Nucleated RBC Nucleated RBC % (auto) POC Glucose 122 H 164 H 170 H COVID-19 (JAE) COVID-19 Clin Com 04/22/23 04/22/23 04/22/23 11:21 16:07 19:59 WBC RBC Hgb Hct MCV MCH MCHC RDW Plt Count MPV Immature Gran % (Auto) Neut % (Auto) Lymph % (Auto) [place] % (Auto) Eos % (Auto) Baso % (Auto) Lymph # (Auto) [place] # (Auto) Eos # (Auto) Baso # (Auto) Abs Immat Gran (auto) Absolute Neuts (auto) Absolute Nucleated RBC Nucleated RBC % (auto) POC Glucose 139 H 154 H 104 COVID-19 (JAE) COVID-19 Clin Com 04/23/23 05:56 WBC RBC Hgb Hct MCV MCH MCHC RDW Plt Count MPV Immature Gran % (Auto) Neut % (Auto) Lymph % (Auto) [place] % (Auto) Eos % (Auto) Baso % (Auto) Lymph # (Auto) [place] # (Auto) Eos # (Auto) Baso # (Auto) Abs Immat Gran (auto) Absolute Neuts (auto) Absolute Nucleated RBC Nucleated RBC % (auto) POC Glucose 130 H COVID-19 (JEA) COVID-19 Clin Com Imaging Diagnostic Imaging Impressions KUB X-Ray 03/26/23 09:55 IMPRESSION: There is a moderately large stool burden, suggesting possible constipation. No obstruction or ileus is seen. No free intraperitoneal air noted. Head CT 03/28/23 09:05 IMPRESSION: 1. No acute intracranial process seen. 2. 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 3. Mild cerebral volume loss with chronic small vessel ischemic changes in both cerebral hemispheres. KUB X-Ray 04/06/23 13:34 IMPRESSION: Nonobstructive bowel gas pattern. DS: Summary Hospital Course Hospital Course: The patient is a 72-year-old [place] female, Who used to live in the community with her family with a past history of schizophrenia. She was chronically non compliant with medications. Also the family noticed that she had cognitive decline in the last years. She was brought to the emergency room of another hospital by her family due to increased agitation and disorganized behavior. She was assessed by the crisis team and transferred to this facility for continuation of care. Please see the HPI of the admission note for further details. On admission, the patient was grossly disorganized and confused, paranoid and assaultive at times. We review her medications and we start the titration of Haldol slowly up to 5 mg p.o. t.i.d. with no evidence of side effects. Even though, the patient remainrd psychotic, delusional with poor impulse control. We had several meetings with the family and it was clear that the children cannot take care of her at this point and they decided for long-term care. We discussed at length with the family, the treatment team and the patient about treatment options since she was unable to respond fairly well to Haldol only, we decided to start Zyprexa titrated up to 2.5 mg p.o. in the morning and 10 mg p.o. q.h.s.. The patient responded fairly well to this treatment but she remains chronically demented. The occupational therapists try to do a [place] test but she could not cooperate but her Luiz test was very low. It was clear that the patient will need long-term care with full care. We decided to add Namenda up to 5 mg p.o. b.i.d. to target dementia. At this point Aricept was not an option. The patient was pleasantly confused, cooperative and compliant with treatment. At times, she gets slightly agitated but she is easily redirected. The social work supervisor did several referrals to different nursing homes and assisted living facilities and eventually she found a bed at [facility]. Since there were no safety concerns discharge planning was discussed and transferred to this facility. Time spent discussing smoking cessation with patient: 3 to 10 minutes Status at Discharge Cognitive/behavioral status at discharge: Limited at baseline Functional status at discharge: independent ambulation Overall status at discharge: patient is back to baseline Time Spent with Patient Time attestation: Total time managing care of this patient today __30__ minutes. Time spent: Less than 30 minutes Discharge Plan Discharge Anticipated Discharge Date/Time: 04/23/23 08:00 Patient Disposition: er [facility] Discharge Diagnosis: Major neurocognitive disorder Referrals: Physician,Unknown J [Primary Care Provider] - 1 Week Discharge Medications: New acetaminophen 325 mg Tablet 650 mg PO Q6H PRN (Reason: Pain, Mild (Pain Scale 1-3)) Qty: 0 0RF trazodone 100 mg Tablet 200 mg PO BEDTIME Qty: 0 0RF gabapentin 300 mg Capsule 300 mg PO TID Qty: 90 0RF haloperidol 5 mg Tablet 5 mg PO TID Qty: 0 0RF trazodone 50 mg Tablet 150 mg PO BID@0900,1500 Qty: 0 0RF dextrose [Glutose-15] 40 % Gel 15 g PO Q15M PRN (Reason: Per Hypoglycemia Standing Ord.) Qty: 0 0RF Protocol: Glucose Gel Hypoglycemia Standing Order Protocol Text: For patients able to take PO (patient cooperative and able to swallow). Give Glucose Gel 15 gm PO for Blood Glucose (BG) < 70. Repeat BG every 15 min until BG > 70 x 3, if BG still < 70 and/or patient symptomatic repeat glucose gel or rapid acting carbohydrate. Notify MD if BG does not improve with treatment. olanzapine 10 mg Tablet 10 mg PO BEDTIME Qty: 0 0RF olanzapine 2.5 mg Tablet 2.5 mg PO DAILY Qty: 0 0RF olanzapine 10 mg Tablet,Disintegrating 5 mg translingual BID PRN (Reason: Psychosis) Qty: 0 0RF memantine 5 mg Tablet 5 mg PO BID Qty: 0 0RF sennosides-docusate sodium [Senna Plus] 8.6-50 mg Tablet 1 tab PO BID Qty: 0 0RF omeprazole 20 mg Capsule,Delayed Release(Dr/Ec) 20 mg PO DAILY@0700 Qty: 0 0RF lactulose 20 gram/30 mL Solution 10 g PO DAILY Qty: 0 0RF melatonin 3 mg Tablet 6 mg PO BEDTIME Qty: 0 0RF Continued atorvastatin 20 mg PO DAILY clopidogrel 75 mg PO DAILY albuterol 2.5 mg inhalation QID PRN (Reason: HX of Asthma) insulin glargine 15 units subcut DAILY Discontinued ondansetron HCl [Zofran] 4 mg Tablet 4 mg PO QID gabapentin 200 mg PO BID lisinopril 20 mg PO DAILY sertraline 50 mg PO DAILY acetaminophen 1,000 mg PO TID benzocaine-menthol 1 mg PO Q1-2H PRN (Reason: Pain) diphenhydramine HCl 12.5 mg PO QID PRN (Reason: unknown) docusate sodium 100 mg PO BID guaifenesin 600 mg PO BID haloperidol 2 mg PO Q4-6H PRN (Reason: unknown) heparin (porcine) 5,000 units subcut BID lorazepam 1 mg PO QID PRN (Reason: agitation) risperidone 0.5 mg PO BEDTIME risperidone 0.5 mg PO BID trazodone 50 mg PO BEDTIME mirtazapine 7.5 mg PO BEDTIME Discharge Orders: Discharge Order (Routine); Ordered 04/22/23 Ordered By: Manisha Pa Diet: Diabetic diet Activity on Discharge: As tolerated Stand Alone Forms: Patient Portal Discharge page Care Plan Goals: transfer to [facility] Health Concerns: follow up with PCP for DM, HTN management Plan of Treatment: assistance taking medications Assessment: Pt pleasant. Needs redirection but no overt combative behaviors. No VH/AH. No delusions. Confabulations.
[2023-04-23] MEDS: Lactulose 20 GM/30 ML SOLUTION 10 GM PO (09:27)
[2023-04-23] MEDS: Gabapentin 300 MG CAPSULE PO (09:28)
[2023-04-23] MEDS: Memantine HCl 5 MG TABLET PO (09:28)
[2023-04-23] MEDS: HaloperidoL 5 MG TABLET PO (09:28)
[2023-04-23] MEDS: traZODone HCL 50 MG TABLET 150 MG PO (09:28)
[2023-04-23] MEDS: Sennosides/Docusate Sodium TABLET 1 TAB PO (09:29)
[2023-04-23] MEDS: OLANZapine 2.5 MG TABLET PO (09:29)
== END 2023-04-23 10:30 | DRG 885 ==
PROVIDERS: Psychiatry & Neurology Psychiatry; Social Worker; Admitting Provider Psychiatry & Neurology Psychiatry; Visit Provider Psychiatry & Neurology Psychiatry
DX: F29 Unspecified psychosis not due to a substance or known physiological condition (principal); F03.911 Unspecified dementia, unspecified severity, with agitation; E78.5 Hyperlipidemia, unspecified; I10 Essential (primary) hypertension; E11.9 Type 2 diabetes mellitus without complications; Z91.83 Wandering in diseases classified elsewhere; Z86.73 Personal history of transient ischemic attack (TIA), and cerebral infarction without residual deficits; Z91.148 Patient's other noncompliance with medication regimen for other reason; Z75.1 Person awaiting admission to adequate facility elsewhere; Z20.822 Contact with and (suspected) exposure to COVID-19; Z79.02 Long term (current) use of antithrombotics/antiplatelets; Z79.899 Other long term (current) drug therapy
CPT/HCPCS: 36415; 70450; 74018; 80048; 80053; 80061; 80076; 81001; 82947; 83036; 83735; 84443; 84484; 85025; 87635; 93005; 94640; J2060

== ENCOUNTER → 2023-01-15 16:43 | Outpatient (BNV) | payer OTHER, SELFPAY | PROVIDERS: Admitting Provider Psychiatry & Neurology Psychiatry; Visit Provider Psychiatry & Neurology Psychiatry | DX: F29 Unspecified psychosis not due to a substance or known physiological condition (principal); F03.90 Unspecified dementia, unspecified severity, without behavioral disturbance, psychotic disturbance, mood disturbance, and anxiety | CPT/HCPCS: 90792; 99231; 99232; 99238 ==

== ENCOUNTER → 2023-01-15 16:43 | Outpatient (BNV) | payer OTHER, SELFPAY | PROVIDERS: Admitting Provider Psychiatry & Neurology Psychiatry; Visit Provider Student in an Organized Health Care Education/Training Program | DX: Z02.2 Encounter for examination for admission to residential institution (principal) | CPT/HCPCS: 99429; 99499 ==